=== PATIENT | female | born 1940 | race Caucasian/White ===

== ENCOUNTER 2021-10-10 12:17 | Outpatient (CLI) | payer MEDICARE, SELFPAY ==
--- NOTE | 2021-10-10 13:33 | SP.MBSS_ITS ---
Modified Barium Swallow - Patient Information Study Date: 10/10/21 Study Time: 12:30 Direct Billable Minutes: 70 Total Minutes procedure & reportin Diagnosis: Dysphagia, unspecified (R13.10) Referring Physician: Devonte Martinez V Reason for Referral: Objectively assess swallow function, risk for aspiration, and determine recommendations for least restrictive diet textures and compensatory strategies to improve safety of swallow. Medical History: The patient is an 81 year old female with PMH of TIA (1979) and asthma. She has had increased difficulty swallowing in the past two months since her asthma has worsened. She reports she occasionally coughs when swallowing drinks or dry foods. At times, she has coughed out food. Current Diet Ordered: Regular Textures / Thin Liquids Dentition: Natural Teeth, Missing Teeth Mental Status: WNL Respiratory Status: Oxygenating on Room Air - Penetration-Aspiration Scale Penetration-Aspiration Scale: OBJECTIVE ASSESSMENT OF SWALLOW FUNCTION (QUANTITATIVE ? PER TRIAL): PENETRATION / ASPIRATION SCALE (MARIANO): 1 = does not enter airway 2 = enters airway/above vocal folds/ejected 3 = enters airway/above vocal folds/not ejected 4 = enters airway/contacts vocal folds/ejected 5 = enters airway/contacts vocal folds/not ejected 6 = enters airway/below vocal folds/ejected 7 = enters airway/below vocal folds/not ejected despite effort 8 = enters airway/below vocal folds/no effort VIDEOFLOROSCOPIC SCALE SCORE (MARIANO): Grade I = aspiration of material that has penetrated into the laryngeal vestibule, intact cough reflex Grade II = aspiration < 10 % of the bolus, intact cough reflex Grade III = aspiration of < 10 % of the bolus, reduced cough reflex or aspiration of > 10 % of the bolus, intact cough reflex Grade IV = aspiration of > 10 % of the bolus, reduced cough reflex - Penetration-Aspiration Scale Score Thin Liquid via teaspoon Result: 1= does not enter airway Thin Liquid via teaspoon Trial 2 Result: 1= does not enter airway Thin Liquid via small single sip from cup Result: 1= does not enter airway Thin Liquid via sequential sips from cup Result: 2= enter airway/above vocal folds/ejected - Shallow, flash penetration. [place] Thick Liquid via small single sip from cup Result: 1= does not enter airway [place] Thick Liquid via small single sip from cup Result: 1= does not enter airway Pudding via tsp with esophageal screen Result: 1= does not enter airway Comment: Slow clearance of contrast from esophagus with retrograde flow below UES. 1/2 Cookie with esophageal screen Result: 1= does not enter airway Comment: Slow clearance of contrast from esophagus with some retention of contrast observed throughout the esophagus.. Thin Liquid via single sip from straw Result: 1= does not enter airway Thin Liquid via sequential sips from straw Result: 2= enter airway/above vocal folds/ejected - Shallow, flash penetration. - Oral Phase Labial Seal: No Labial Escape Tongue Control During Bolus Hold: Posterior escape of less than half of bolus Bolus Preparation/Mastication: Slow prolonged chewing/mashing with complete recollection Bolus Transport/Lingual Motion: Brisk tongue motion Oral Residue: Residue collection on oral structures - Pharyngeal Phase Initiation of Pharyngeal Swallow: Bolus head in pyriforms - With sequential sips Soft Palate Elevation: No bolus between soft palate and pharyngeal wall Laryngeal Elevation: Partial superior movement thyroid cart/partial apprx aryt- epig petiole Anterior Hyoid Excursion: Complete anterior movement Epiglottic Movement: Complete inversion Laryngeal Vestibule Closure at Height of Swallow: Incomplete; narrow column of air/contrast in laryngeal vestibule - Sequential sips Pharyngeal Stripping Wave: Present - complete Pharyngoesophageal Segment Opening: Complete distension and complete duration; n o obstruction of flow Tongue Base Retraction: Trace column of contrast between tongue base & post. pharyngeal wall Pharyngeal Residue: Collection of residue within or on pharyngeal structures - With sequential sips - Esophageal Phase Esophageal Clearance: Esophageal retention w/ retrograde flow below pharyngoe sophageal seg. - Treatment Strategies Effects of treatment strategies attemped:: N/A - Diagnosis/Impression Diagnosis: Swallow function grossly WNL Impression: The patient demonstrates overall normal swallow function. She has prolonged mastication, likely due to missing teeth; however, the patient adequately mashed cookie to safely swallow. She presents with mild oral and pharyngeal residues after the swallow, which she independently clears by initiating a second swallow. She has mildly decreased laryngeal elevation, but she demonstrates good anterior hyoid excursion and epiglottic inversion. Flash laryngeal penetration with full ejection from the laryngeal vestibule with sequential sips of liquids. No aspiration observed during the study. - Recommendations Diet: Regular Textures - Consider moistening dry foods with a sauce/gravy, Thin Liquids Compensatory Strategies: Small Bites, Small Sips, Slow Rate, Sitting upright, Remain sitting upright for 30 minutes after PO intake Recommend Repeat Modified Barium Swallow: No Need for Skilled Speech Therapy Services: No Recommended Referrals: GI Consult - Slowed esophageal clearance of contrast with retention and retrograde flow of bolus below UES observed. Education Completed: 1. Described result of evaluation. - Status Active ST Patient: Active - Contact Information [facility] Speech Therapy:: Mara Sharif M.A. [facility] [employer] Speech-Language Pathologist [facility] [address] [place] [address] [email or web address] [phone] 10/10/21 13:44
== END 2021-10-10 23:59 | disposition home or self-care (01) ==
PROVIDERS: PCP Family Medicine; Referring Provider Internal Medicine Pulmonary Disease; Visit Provider Internal Medicine Pulmonary Disease
DX: R13.10 Dysphagia, unspecified (principal)
CPT/HCPCS: 74230; 92611

== ENCOUNTER 2022-01-06 14:10 | Outpatient (RCR) | payer MEDICARE, SELFPAY | END 2022-01-06 14:11 | disposition home or self-care (01) | LOC: SP 14:10 | PROVIDERS: PCP Family Medicine; Referring Provider Internal Medicine Pulmonary Disease; Visit Provider Internal Medicine Pulmonary Disease | DX: R69 Illness, unspecified (principal) ==

== ENCOUNTER 2022-03-02 10:00 | Outpatient (RCR) | payer MEDICARE, SELFPAY ==
--- NOTE | 2021-10-24 17:14 | HP.SP.AD ---
History - History Date of Eval: 10/24/21 Previous speech therapy: Yes Results: MBSS completed on 10/10/21 -- See below Other Relevant Medical History/Diagnoses/Surgery: JACQUELIN QUINTERO is an 81 year old female presenting to [facility] for an initial voice evaluation. Pt reports her voice problem began around August 2021 following her appt with new sinter feeder, Dr. Devonte Martinez. Pt reports that Dr. Martinez first noticed the voice change from his initial appt with her. Pt reports Dr. Martinez performed a nasal endoscopy to view her vocal cords with unremarkable findings including no nodules. Pt was also reporting difficulty with her swallowing via having to expectorated foods and drinks occasionally. Pt participated in MBSS at [facility] which revealed Pt's least restrictive diet to remain regular solids and thin liquids with only flash penetration on sequential thin liquid drinks, which then fully ejected. Pt's voice problem worsening and is causing her pain. Smoking Status: Never smoker Hx Smoking: No Hx Smoking Exposure: Yes - 20 years; however hasn't been for 14 years - Pain Is pain an issue with your current prescribed condition?: Yes - Personal Occupation: Retired Right Hearing Abillity: Use of Hearing Aid Left Hearing Abillity: Use of Hearing Aid Visual Assistive Devices: Glasses Patients Living Arrangements: Alone Modified Barium Results Hx MBS Report Entered: Yes MBS Results (from prior exam): 10/24/21 17:13 Speech Therapy by Bianka Ortiz [facility] Speech Pathology [address] [place] [address] Modified Barium Swallow Study MR#: [id number] Acct: [id number] Name: YURI QUINTERO Rep #: [id number] : 1940 81 From: Mara Sharif M.A., [facility] [employer] Modified Barium Swallow - Patient Information Study Date: 10/10/21 Study Time: 12:30 Direct Billable Minutes: 70 Total Minutes procedure & reportin Diagnosis: Dysphagia, unspecified (R13.10) Referring Physician: Devonte Martinez V Reason for Referral: Objectively assess swallow function, risk for aspiration, and determine recommendations for least restrictive diet textures and compensatory strategies to improve safety of swallow. Medical History: The patient is an 81 year old female with PMH of TIA (1979) and asthma. She has had increased difficulty swallowing in the past two months since her asthma has worsened. She reports she occasionally coughs when swallowing drinks or dry foods. At times, she has coughed out food. Current Diet Ordered: Regular Textures / Thin Liquids Dentition: Natural Teeth, Missing Teeth Mental Status: WNL Respiratory Status: Oxygenating on Room Air - Penetration-Aspiration Scale Penetration-Aspiration Scale: OBJECTIVE ASSESSMENT OF SWALLOW FUNCTION (QUANTITATIVE ? PER TRIAL): PENETRATION / ASPIRATION SCALE (MARIANO): 1 = does not enter airway 2 = enters airway/above vocal folds/ejected 3 = enters airway/above vocal folds/not ejected 4 = enters airway/contacts vocal folds/ejected 5 = enters airway/contacts vocal folds/not ejected 6 = enters airway/below vocal folds/ejected 7 = enters airway/below vocal folds/not ejected despite effort 8 = enters airway/below vocal folds/no effort - Penetration-Aspiration Scale Score Thin Liquid via teaspoon Result: 1= does not enter airway Thin Liquid via teaspoon Trial 2 Result: 1= does not enter airway Thin Liquid via small single sip from cup Result: 1= does not enter airway Thin Liquid via sequential sips from cup Result: 2= enter airway/above vocal folds/ejected - Shallow, flash penetration. [place] Thick Liquid via small single sip from cup Result: 1= does not enter airway [place] Thick Liquid via small single sip from cup Result: 1= does not enter airway Pudding via tsp with esophageal screen Result: 1= does not enter airway Comment: Slow clearance of contrast from esophagus with retrograde flow below UES. 1/2 Cookie with esophageal screen Result: 1= does not enter airway Comment: Slow clearance of contrast from esophagus with some retention of contrast observed throughout the esophagus.. Thin Liquid via single sip from straw Result: 1= does not enter airway Thin Liquid via sequential sips from straw Result: 2= enter airway/above vocal folds/ejected - Shallow, flash penetration. - Oral Phase Labial Seal: No Labial Escape Tongue Control During Bolus Hold: Posterior escape of less than half of bolus Bolus Preparation/Mastication: Slow prolonged chewing/mashing with complete recollection Bolus Transport/Lingual Motion: Brisk tongue motion Oral Residue: Residue collection on oral structures - Pharyngeal Phase Initiation of Pharyngeal Swallow: Bolus head in pyriforms - With sequential sips Soft Palate Elevation: No bolus between soft palate and pharyngeal wall Laryngeal Elevation: Partial superior movement thyroid cart/partial apprx aryt-epig petiole Anterior Hyoid Excursion: Complete anterior movement Epiglottic Movement: Complete inversion Laryngeal Vestibule Closure at Height of Swallow: Incomplete; narrow column of air/contrast in laryngeal vestibule - Sequential sips Pharyngeal Stripping Wave: Present - complete Pharyngoesophageal Segment Opening: Complete distension and complete duration; no obstruction of flow Tongue Base Retraction: Trace column of contrast between tongue base & post. pharyngeal wall Pharyngeal Residue: Collection of residue within or on pharyngeal structures - With sequential sips - Esophageal Phase Esophageal Clearance: Esophageal retention w/ retrograde flow below pharyngoesophageal seg. - Treatment Strategies Effects of treatment strategies attemped:: N/A - Diagnosis/Impression Diagnosis: Swallow function grossly WNL Impression: The patient demonstrates overall normal swallow function. She has prolonged mastication, likely due to missing teeth; however, the patient adequately mashed cookie to safely swallow. She presents with mild oral and pharyngeal residues after the swallow, which she independently clears by initiating a second swallow. She has mildly decreased laryngeal elevation, but she demonstrates good anterior hyoid excursion and epiglottic inversion. Flash laryngeal penetration with full ejection from the laryngeal vestibule with sequential sips of liquids. No aspiration observed during the study. - Recommendations Diet: Regular Textures - Consider moistening dry foods with a sauce/gravy, Thin Liquids Compensatory Strategies: Small Bites, Small Sips, Slow Rate, Sitting upright, Remain sitting upright for 30 minutes after PO intake Recommend Repeat Modified Barium Swallow: No Need for Skilled Speech Therapy Services: No Recommended Referrals: GI Consult - Slowed esophageal clearance of contrast with retention and retrograde flow of bolus below UES observed. Education Completed: 1. Described result of evaluation. - Status Active ST Patient: Active - Contact Information [facility] Speech Therapy:: Mara Sharif M.A. [facility] Speech-Language Pathologist [facility] [address] [place] [address] [email or web address] [phone] 10/10/21 13:44 10/10/21 1349 <Electronically signed by Mara Sharif M.A., [facility]> Initialized on 10/24/21 17:13 - END OF NOTE Subjective Voice - Intubation Was the Client intubated: No - Intake Water (ounces): 64 Coffee (ounces): 8 Soda (ounces): 8 - Alcoholic Beverage Intake Intake: Never CAPE-V - CAPE-V CAPE-V Administered: Yes - Overall Severity Overall Severity (n/100): 90 Frequency: Consistent - Roughness Roughness (n/100): 62 Frequency: Consistent - Breathiness Breathiness (n/100): 91 Frequency: Consistent - Strain Strain (n/100): 80 Frequency: Consistent - Pitch Pitch (n/100): 66 Frequency: Consistent - Loudness Loudness (n/100): 89 Frequency: Consistent - Comments Purpose of CAPE-V -: The Consensus Auditory-Perceptual Evaluation of Voice (CAPE-V) was developed as a tool for clinical auditory-perceptual assessment of voice. Its primary purpose is to describe the subjective severity of auditory-perceptual attributes of a voice problem, in a way that can be communicated among clinicians. Its secondary purpose is to contribute to hypotheses regarding the anatomic and physiological bases of voice problems and to evaluate the need for additional testing. In terms of severity, Pt is considered MILD between 0-40, MODERATE 40-75, and SEVERE >75. Subjective Clinical Impression - Adult Clinical Impression Dysphonia: any 'abnormal' vocal quality suggesting an interruption of normal production: Present Breathiness: an audible excape of air or a 'weak' vocal tone suggestive of glottal insufficiency: Present Aphonia: lacking voice; no true vibratory voicing: Present Vocal fatigue: a 'tired' voice or feeling of excessive effort to phonate: Present Voice deterioration: reduction of volume or vocal quality with prolonged use: Present - Non-Phonatory Behaviors/Respiration Reduced loudness or vocal weakness: Present Limited breath support for speech: Present Stridor upon inhalation: noise or vibration heard upon inhalation: Present Expiratory wheezing: Present Objective Voice - Objective data Objective Data: Objective data: Sound pressure level (SPL acoustic correlation of vocal loudness) was measured with a sound level meter at a distance of 40 cm from the patient's mouth. Average conversational loudness is 70-80 dB and sustained phonation duration is 15 to 20 seconds for a typical adult. Sustained Phonatin duration (seconds): 3 Is the individual stimulable to increase vocal intensity: No - Observational Assessment Pitch Range in octaves: can move 1 octave in whisper tone Maximum Phonation Time in seconds: 2; in falsetto - Pt unable to phonate across multiple attempts S/Z Ratio: 2:2 Sustained /s/: 2 Sustained /z/: 0; Pt unable to phonate across multiple attempts Ratio: 2:0 Greater than 1:4 (indicates dysfunction): Yes Other Impressions - Comments Observations -: Pt appearing significantly fatigued while walking back to speech therapy room exhibiting inhalatory stridor with her breathing. Stridor continued for approximately 10 minutes into session. At the end of session, Pt reporting that she was very fatigued. Suspecting Pt's swallowing difficulties could be stemming from difficulty coordinating breathing and swallowing d/t Pt's severe asthma. Pt was tested for COPD and those results revealed severe asthma only. NO new changes with asthma medications except an increase in dosage. Pt reports no significant life or environmental factors that have changed in the past few months. Pt reports her voice problem is impacting her daily life with family members not being able to hear her on the phone or in person. Every day is different ? sometimes she has a voice in the mornings and other times it is hoarse. Pt reports the more she uses it the worse it gets. In a quiet environment to an unknown listener, Pt was approximately 80% intelligible with her speech/voice. Pt's voice in a falsetto tone throughout the majority of the session with intermittent voicing at the beginning of a sentence or if Pt 'sighed' into the word -- voicing lasted for only 2-3 phonemes and then Pt went back to falsetto. Plan - Plan Plan: Will recommend Pt for skilled outpatient speech therapy to address severe deficits in vocal function characterized by dysphonia, aphonia, vocal tension, and impaired volitional control of respiration. Pt would benefit from training in identifying instances of vocal abuse, providing vocal hygiene solutions, training in diaphragmatic breathing, and voice facilitation training. Without skilled speech therapy Pt is at risk for continued vocal abuse and feelings of isolation in a variety of social situations. Recommending Pt participate in nasal endoscopy at an ENT office to further objectively assess vocal function. - Recommendations Treatment Warranted: Yes - Frequency Frequency: 1x/Week Duration: 6 Weeks - Prognosis Prognosis: Good - Goals that are Established: Determination:: Goals will be added/modified as deemed necessary and appropriate. Therapy will be discontinued when results of re-evaluation indicate therapy is no longer needed or lack of progress has been documented. - Goal #1-5 Goal #1: Pt will participate in an ENT consult to objectively assess vocal function and determine appropriate course of voice exercises and compensatory strategies. Goal #2: Pt will establish volitional control of respiration evidenced by utilization of diaphragmatic breathing to sustain ah for 10-15 seconds within 4 weeks with 70% accuracy independently. Goal #3: Patient will establish volitional control of respiration evidenced by utilization of diaphragmatic breathing during structured tasks within 4 weeks with 100% accuracy independently. Education - Patient has Indicated that the Following Identified Educational Needs: None The Patient has indicated that they have no educational or learning abilities that may effect their care.: Yes - Patient Instruction Patient Education: Diagnosis, Treatment Plan, Goals Person Taught: Patient Teaching Method: Discussion Response to teaching: Return demonstration, Verbalize understanding
--- NOTE | 2022-05-15 16:01 | HP.SP.DC ---
ST Discharge Summary - Discharged: Discharge: YURI QUINTERO is an 81 year old female who was seen for initial voice evaluation at [facility] on 10/24/21 secondary to dx of suspected vocal cord dysfunction. 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 Pt being discharged from speech therapy caseload on this date, 05/15/22, after being on hold through the end of March while she was on vacation. Pt agreed to making additional appts upon her return from vacation should she have cont'd difficulty. Pt has not reached out to schedule additional appts. Pt making significant gains during her participation with the above listed goals. Thank you for allowing me to participate the care of your Pt. Will reevaluate at Pt?s request following script from physician.
== END 2022-03-02 19:00 | disposition home or self-care (01) ==
LOC: SP 10:00
PROVIDERS: PCP Family Medicine; Referring Provider Internal Medicine Pulmonary Disease; Visit Provider Internal Medicine Pulmonary Disease
DX: R49.0 Dysphonia (principal)
CPT/HCPCS: 92507; 92524

== ENCOUNTER 2024-07-17 19:27 | Inpatient (IN) | payer MEDICARE, SELFPAY ==
[2024-07-17] VITALS (7 sets, daily range): BP systolic 133–150; BP diastolic 65–121; PULSE 57–94; RESP 12–31; TEMP 36.5–36.8; O2SAT 91–100; BMI 30.4; BMI 35.3
--- NOTE | 2024-07-17 19:40 | RAD_ITS ---
INDICATION: cough EXAMINATION/TECHNIQUE: X-RAY - XR Chest 2 Views COMPARISON: FINDINGS: LINES/DEVICES: None. LUNGS: No consolidation, edema or effusion. No pneumothorax. MEDIASTINUM AND CARDIOVASCULAR STRUCTURES: Cardiac silhouette not enlarged. Central airways and mediastinal contour are unremarkable. BONES AND SOFT TISSUES: Degenerative vertebral changes. RAD/Chest PA and Lateral IMPRESSION: No radiographic evidence of acute cardiopulmonary disease. Electronically Signed: Norris Gutierrez DO at 22:09 EST ,
--- NOTE | 2024-07-17 19:42 | ED.VIS.DYS ---
HPI <RAYMUNDO Quinonez - Last Filed: 07/17/24 22:04> History of Present Illness Chief Complaint: Shortness of Breath Narrative Narrative: Patient presenting today with a nonproductive cough and shortness of breath that started today. She lives with her vzttuv-[id number]-ypq who tested positive for influenza today and has had similar symptoms. She denies fevers, chills, chest pain, abdominal pain, nausea, and vomiting. He has a PMH of asthma and dementia, she denies wheezing. PFS <RAYMUNDO Quinonez - Last Filed: 07/17/24 22:04> [facility] Medical History (Updated 07/17/24 @ 22:[address] Urbano Mir, DO) Osteoporosis Non-smoker BiPAP (biphasic positive airway pressure) dependence COPD (chronic obstructive pulmonary disease) Asthma TIA (transient ischemic attack) Home Medications ?Medication ?Instructions ?Recorded ?Last Taken ?Type albuterol sulfate 90 mcg/actuation 2 puff inhalation .qid PRN wheezing 07/17/24 Unknown History aerosol inhaler ezetimibe 10 mg tablet 10 mg PO DAILY 07/17/24 Unknown History furosemide 20 mg tablet 20 mg PO DAILY PRN edema 07/17/24 Unknown History ipratropium 0.5 mg-albuterol 3 mg ml inhalation 07/17/24 Unknown History (2.5 mg base)/3 mL nebulization soln nitroglycerin 0.2 mg/hr patch transdermal 07/17/24 Unknown History transdermal 24 hour patch rosuvastatin 5 mg tablet 5 mg PO DAILY 07/17/24 Unknown History triamterene 37.5 1 cap PO DAILY 07/17/24 Unknown History mg-hydrochlorothiazide 25 mg capsule Allergy/AdvReac Type Severity Reaction Status Date / Time aspirin Allergy Unknown PT UNSURE Verified 07/17/24 19:32 OF REACTION cefaclor Allergy PT UNSURE Verified 07/17/24 19:32 OF REACTION chlorzoxazone Allergy PT UNSURE Verified 07/17/24 19:32 OF REACTION codeine Allergy PT UNSURE Verified 07/17/24 19:32 OF REACTION erythromycin base Allergy PT UNSURE Verified 07/17/24 19:32 OF REACTION guanfacine Allergy PT UNSURE Verified 07/17/24 19:32 OF REACTION naproxen Allergy PT UNSURE Verified 07/17/24 19:32 OF REACTION orphenadrine Allergy PT UNSURE Verified 07/17/24 19:32 OF REACTION oxytetracycline Allergy PT UNSURE Verified 07/17/24 19:32 OF REACTION Penicillins Allergy PT UNSURE Verified 07/17/24 19:32 OF REACTION piroxicam Allergy PT UNSURE Verified 07/17/24 19:32 OF REACTION Sulfa (Sulfonamide Allergy PT UNSURE Verified 07/17/24 19:32 Antibiotics) OF REACTION testosterone Allergy PT UNSURE Verified 07/17/24 19:32 OF REACTION Social History Smoking Status: Never smoker ROS <RAYMUNDO Quinonez - Last Filed: 07/17/24 22:04> ROS ED Constitutional Constitutional ED: Denies chills or fever(s) Cardiovascular Cardiovascular: Denies chest pain Respiratory/Chest Respiratory/Chest: Reports cough, dyspnea and dyspnea on exertion; Denies tachypnea or wheezing Gastrointestinal Gastrointestinal: Denies abdominal pain, nausea or vomiting Musculoskeletal Musculoskeletal: Denies arthralgias or myalgias Integumentary Denies rash Neurologic Neurologic: Denies weakness EXAM <RAYMUNDO Quinonez - Last Filed: 07/17/24 22:04> Physical Exam Const Vital Signs: 07/17/24 19:33 07/17/24 19:33 07/17/24 19:48 Temperature 98.2 F Temperature Source Oral Pulse Rate 86 94 86 Respiratory Rate 26 H 26 H 20 H Respiratory Effort Respiratory Depth Respiratory Pattern Blood Pressure 137/121 H 150/66 H Blood Pressure Mean 126 94 Pulse Ox 91 93 Oxygen Delivery Method Room Air Room Air Oxygen Flow Rate (L/min) 07/17/24 20:01 07/17/24 21:27 07/17/24 21:43 Temperature 98.1 F 98.1 F Temperature Source Oral Pulse Rate 89 87 Respiratory Rate 24 H 28 H Respiratory Effort Non-Labored Short of Breath Respiratory Depth Normal Respiratory Pattern Normal Blood Pressure 145/83 H 145/83 H Blood Pressure Mean 103 103 Pulse Ox 98 99 Oxygen Delivery Method Room Air Nasal Cannula Oxygen Flow Rate (L/min) 2 Positive well nourished, well developed and no apparent distress General Appearance ED: well developed HEENT Reports normocephalic and head/scalp atraumatic Mouth ED: Yes moist mucous membranes normal Eyes PERRL and EOMs intact bilaterally Neck full ROM and supple Chest Wall inspection of chest normal Resp normal respiratory effort Resp Narrative: Coarse breath sounds to the bilateral lower lungs Cardio regular rate and regular rhythm GI soft to palpation, non-tender, non-distended and no masses Back/Spine normal ROM and normal to inspection Extremity normal to inspection and full ROM Neuro oriented x3, CN's II-XII intact bilaterally, moves all extremities, no focal motor deficits and no sensory deficits noted Sensorium / Orientation: awake and alert Psych mental status grossly normal and thought process normal Skin no rashes or lesions noted and no wounds <Dr. Urbano Mir DO - Last Filed: 07/17/24 22:52> Physical Exam Const Vital Signs: 07/17/24 19:33 07/17/24 19:33 07/17/24 19:48 Temperature 98.2 F Temperature Source Oral Pulse Rate 86 94 86 Respiratory Rate 26 H 26 H 20 H Respiratory Effort Respiratory Depth Respiratory Pattern Blood Pressure 137/121 H 150/66 H Blood Pressure Mean 126 94 Pulse Ox 91 93 Oxygen Delivery Method Room Air Room Air Oxygen Flow Rate (L/min) 07/17/24 20:01 07/17/24 21:27 07/17/24 21:43 Temperature 98.1 F 98.1 F Temperature Source Oral Pulse Rate 89 87 Respiratory Rate 24 H 28 H Respiratory Effort Non-Labored Short of Breath Respiratory Depth Normal Respiratory Pattern Normal Blood Pressure 145/83 H 145/83 H Blood Pressure Mean 103 103 Pulse Ox 98 99 Oxygen Delivery Method Room Air Nasal Cannula Oxygen Flow Rate (L/min) 2 [facility] <RAYMUNDO Quinonez - Last Filed: 07/17/24 22:04> [facility] Narrative Medical decision making narrative: Patient presenting today with a nonproductive cough that started today. Her goknlm-ep-bil who she lives with tested positive for influenza today. Patient is nontoxic-appearing, she is afebrile. O2 saturation is around 92% on room air. Chest x-ray will be obtained. We will test her for COVID/influenza/RSV and if she is influenza positive discuss starting her on Tamiflu. She did test positive for influenza A, she was ambulated by the nurse and did desaturate to 85% on room air and became lightheaded and almost fell, the nurse had to assist her back to the bed and placed her on supplemental O2. Given her hypoxia and shortness of breath, I do feel she would benefit from admission to the hospital. I will speak with the hospitalist. She was given a dose of Tamiflu. Lab Data Attestation: I reviewed the patient's lab results. Lab results narrative: WBC 13.4, creatinine 1.26 Labs: Laboratory Results - last 24 hr 07/17/24 19:35 WBC 13.4 H RBC 5.33 Hgb 15.1 H Hct 47.7 H MCV 89.5 MCH 28.3 MCHC 31.7 L RDW Std Deviation 43.3 RDW Coeff of Jaz 13.2 Plt Count 307 MPV 10.8 Immature Gran % (Auto) 0.500 Neut % (Auto) 78.8 H Lymph % (Auto) 10.4 L [place] % (Auto) 7.6 Eos % (Auto) 2.1 Baso % (Auto) 0.6 Absolute Neuts (auto) 10.5 H Absolute Lymphs (auto) 1.39 Nucleated RBC % 0 Sodium 141 Potassium 3.5 Chloride 104 Carbon Dioxide 29.0 Anion Gap 8 BUN 17 Creatinine 1.26 H Estim Creat Clear Calc 29.68 Est GFR (MDRD) Af Amer 52 L Est GFR (MDRD) Non-Af 43 L BUN/Creatinine Ratio 13.5 Glucose 121 H Calcium 10.7 H Radiography Diagnostic Testing: Clinical Impression(s) from Imaging Studies Chest X-Ray 07/17/24 19:40 IMPRESSION: No radiographic evidence of acute cardiopulmonary disease. Electronically Signed: Norris Gutierrez DO at 22:09 EST Reading Location ID and State: [address] [place] [address] Tel [phone], Service support , <Dr. Urbano Mir DO - Last Filed: 07/17/24 22:52> [facility] Narrative Medical decision making narrative: Patient presenting today with a nonproductive cough that started today. Her obxcdt-bc-tdy who she lives with tested positive for influenza today. Patient is nontoxic-appearing, she is afebrile. O2 saturation is around 92% on room air. Chest x-ray will be obtained. We will test her for COVID/influenza/RSV and if she is influenza positive discuss starting her on Tamiflu. She did test positive for influenza A, she was ambulated by the nurse and did desaturate to 85% on room air and became lightheaded and almost fell, the nurse had to assist her back to the bed and placed her on supplemental O2. Given her hypoxia and shortness of breath, I do feel she would benefit from admission to the hospital. I will speak with the hospitalist. She was given a dose of Tamiflu. Attending note: I have personally performed a face to face assessment of the patient and have reviewed the ANGELICA note. I personally made/approved the management plan and take responsibility for the patient management. I performed a substantive portion of the visit including all aspects of the following. My aguilar findings include: History dementia asthma here with brother and [id number]. She stays with them. Increasing dyspnea myalgias today. Zwidfi-gm-dws diagnosed with influenza yesterday. Denies fevers. Exam alert and orient x 3 nontoxic. Lungs were normal heart was regular. Pulse ox on arrival was 91 percent on room air. Evaluate after aerosol treatments she clinically states she is improving she was empirically placed on 2 L nasal cannula by nursing reported hypoxia when asleep at 88%. Chest x-ray 2 views interpreted by myself and read by radiology, Negative. flu a positive. With ambulation on room air she dropped to 85% nearly passed out due to dyspnea. She placed back in bed. Labs are drawn GFR returned at 43 white count 13.4. She is covered with Tamiflu 30 mg secondary to her GFR. Discussed with hospitalist Dr. Lock for admission. Lab Data Labs: Laboratory Results - last 24 hr 07/17/24 19:35 WBC 13.4 H RBC 5.33 Hgb 15.1 H Hct 47.7 H MCV 89.5 MCH 28.3 MCHC 31.7 L RDW Std Deviation 43.3 RDW Coeff of Jaz 13.2 Plt Count 307 MPV 10.8 Immature Gran % (Auto) 0.500 Neut % (Auto) 78.8 H Lymph % (Auto) 10.4 L [place] % (Auto) 7.6 Eos % (Auto) 2.1 Baso % (Auto) 0.6 Absolute Neuts (auto) 10.5 H Absolute Lymphs (auto) 1.39 Nucleated RBC % 0 Sodium 141 Potassium 3.5 Chloride 104 Carbon Dioxide 29.0 Anion Gap 8 BUN 17 Creatinine 1.26 H Estim Creat Clear Calc 29.68 Est GFR (MDRD) Af Amer 52 L Est GFR (MDRD) Non-Af 43 L BUN/Creatinine Ratio 13.5 Glucose 121 H Calcium 10.7 H Radiography Diagnostic Testing: Clinical Impression(s) from Imaging Studies Chest X-Ray 07/17/24 19:40 IMPRESSION: No radiographic evidence of acute cardiopulmonary disease. Electronically Signed: Norris Gutierrez DO at 22:09 EST Reading Location ID and State: [facility] / [place] Tel [phone], Service support , Discharge Plan Dx/Rx/DC Orders Clinical Impression: Influenza A, Hypoxia, Dementia, History of asthma Disposition Disposition: Acute Care Hospital [facility]
[2024-07-17] MEDS: Ipratropium/Albuterol Sulfate 3 ML AMPUL.NEB INHALATION (19:46)
[2024-07-17] MEDS: Albuterol 2.5 MG/3 ML VIAL.NEB. INHALATION (19:46)
--- NOTE | 2024-07-17 21:33 | ED.RN ---
pt ambulated on ra, did ok then all of a sudden got dizzy sob , her pox dropped to 85% and doesnt remember how we got her into bed.
[2024-07-17 21:37] LABS: Absolute Lymphocyte Count 1.39 X10^3/uL (0.83-4.51); Absolute Neutrophil Count 10.5 X10^3/uL (2.0-7.7); Basophil# 0.08 X10^3/uL; Basophil% 0.6 % (0-1); Eosinophil# 0.28 X10^3/uL; Eosinophils% 2.1 % (0-5); Hematocrit 47.7 % (37-47); Hemoglobin 15.1 g/dL (12.0-15.0); Lymphocyte # 1.39 X10^3/ul (0.83-4.51); Lymphocyte % 10.4 % (19-41); Mean Corp Hgb Conc 31.7 g/dL (32-36); Mean Corpuscular Hgb 28.3 pg (27.0-32.0); Mean Corpuscular Volume 89.5 fL (81-99); Mean Platelet Vol. 10.8 fl (6.2-12.0); Monocyte# 1.01 X10^3/uL; Monocyte% 7.6 % (0-10); NRBC Flagged by Analyzer 0 % (0-5); Neutrophil # 10.53 X10^3/uL (2.7-7.7); Neutrophil % 78.8 % (47-70); Platelet Count 307 K/mm3 (150-450); RBC Distribution Width CV 13.2 % (11.6-14.6); RBC Distribution Width SD 43.3 fl (35.1-43.9); Red Blood Count 5.33 M/mm3 (4.2-5.4); White Blood Count 13.4 K/mm3 (4.4-11.0)
[2024-07-17 21:49] LABS: Anion Gap 8 (5-15); BUN 17 mg/dL (7-18); BUN/Creat Ratio 13.5 RATIO (10-20); Calcium,Total 10.7 mg/dL (8.5-10.1); Chloride 104 mmol/L (98-107); Creatinine, Serum 1.26 mg/dL (0.55-1.02); EST Glomerular Filtration Rate 43 mL/min (>60); Est Glom Filt Rate - Afr Amer 52 mL/min (>60); Estimated Creatinine Clearance 29.68 ml/min; Glucose 121 mg/dL (74-106); Potassium 3.5 mmol/L (3.5-5.1); Sodium Level 141 mmol/L (136-145)
--- NOTE | 2024-07-17 22:05 | PCM.HP.STD ---
[facility] - General General Date of Admission: 07/17/24 Date of Service: 07/17/24 Chief Complaint: SOB, Cough and Malaise. [facility] Narrative YURI QUINTERO, is a 83 F with a past medical history of essential hypertension; on triamterene-HCTZ, hyperlipidemia; on ezetimibe and rosuvastatin, obesity; with BMI of 35.3 this admission, SHIRA; on BiPAP, history of asthma/COPD without history of tobacco abuse; on prn ipratropium-albuterol nebulizers, history of TIA, history of Alzheimer's dementia; apparently mild with no current pharmacologic treatment, osteoporosis, OA; with fall ~2 months ago onto Left hip with persistent pain since that time and numerous questionable listed allergies who presents to [facility] ER complaining of SOB, cough and malaise. Ms. Quintero reports her symptoms began earlier today with a nonproductive cough and SOB with malaise. She lives with her cjgslo-js-ylj who tested positive for influenza earlier today with a similar viral-type illness. She denies associated fever, chills, nausea, vomiting, diarrhea, constipation or chest pain. In the ER her viral assay was positive for Influenza A complicated by clinical evidence of mild AE COPD and Acute Respiratory Insufficiency with patient dropping her oxygen saturations to ~86% while ambulating and having a Near Syncopal event and she was then admitted to the general medical floor for ongoing care for a stay that is expected to extend beyond 2 midnights. [facility] Medical History Alzheimer dementia Osteoporosis Non-smoker BiPAP (biphasic positive airway pressure) dependence COPD (chronic obstructive pulmonary disease) Asthma TIA (transient ischemic attack) Home Medications ?Medication ?Instructions ?Recorded ?Last Taken ?Type albuterol sulfate 90 mcg/actuation 2 puff inhalation .qid PRN wheezing 07/17/24 Unknown History aerosol inhaler ezetimibe 10 mg tablet 10 mg PO DAILY 07/17/24 Unknown History furosemide 20 mg tablet 20 mg PO DAILY PRN edema 07/17/24 Unknown History ipratropium 0.5 mg-albuterol 3 mg ml inhalation 07/17/24 Unknown History (2.5 mg base)/3 mL nebulization soln nitroglycerin 0.2 mg/hr patch transdermal 07/17/24 Unknown History transdermal 24 hour patch rosuvastatin 5 mg tablet 5 mg PO DAILY 07/17/24 Unknown History triamterene 37.5 1 cap PO DAILY 07/17/24 Unknown History mg-hydrochlorothiazide 25 mg capsule Allergy/AdvReac Type Severity Reaction Status Date / Time aspirin Allergy Unknown PT UNSURE Verified 07/17/24 19:32 OF REACTION cefaclor Allergy PT UNSURE Verified 07/17/24 19:32 OF REACTION chlorzoxazone Allergy PT UNSURE Verified 07/17/24 19:32 OF REACTION codeine Allergy PT UNSURE Verified 07/17/24 19:32 OF REACTION erythromycin base Allergy PT UNSURE Verified 07/17/24 19:32 OF REACTION guanfacine Allergy PT UNSURE Verified 07/17/24 19:32 OF REACTION naproxen Allergy PT UNSURE Verified 07/17/24 19:32 OF REACTION orphenadrine Allergy PT UNSURE Verified 07/17/24 19:32 OF REACTION oxytetracycline Allergy PT UNSURE Verified 07/17/24 19:32 OF REACTION Penicillins Allergy PT UNSURE Verified 07/17/24 19:32 OF REACTION piroxicam Allergy PT UNSURE Verified 07/17/24 19:32 OF REACTION Sulfa (Sulfonamide Allergy PT UNSURE Verified 07/17/24 19:32 Antibiotics) OF REACTION testosterone Allergy PT UNSURE Verified 07/17/24 19:32 OF REACTION Social History Smoking Status: Never smoker ROS ROS Narrative Review of Systems: Constitutional: Patient denies fever or chills. Eyes: Patient denies visual changes or discharge from eyes. ENT: Patient admits to runny nose but she denies sore throat or ear pain. Resp: Patient admits to SOB made worse with activity and nonproductive cough. CV: Patient had a near syncopal event in the ER after attempting to ambulate without supplemental oxygen. GI: Patient denies abdominal pain, nausea, vomiting, diarrhea or constipation. : Patient denies dysuria or hematuria. MSK: Patient admits to persistent pain in Left hip since a fall ~2 months ago as per HPI. Skin: Patient denies rash, abscess or jaundice. Psych: Patient is notably anxious due to SOB and pain in Left hip but she denies SI or HI. Neuro: Patient admits to moderate tension-type headache but she denies paresthesias or focal neurologic deficits. Allergy: Patient denies lip swelling, tongue swelling or urticaria. Hematology: Patient denies easy bleeding or easy bruisability. Endocrinology: Patient denies polyuria, polydipsia and polyphagia. 14 point ROS otherwise negative except for positives noted above in HPI. Vital Signs Vital Signs Vital Signs: 07/17/24 19:33 07/17/24 19:33 07/17/24 19:48 Temperature 98.2 F Temperature Source Oral Pulse Rate 86 94 86 Respiratory Rate 26 H 26 H 20 H Respiratory Effort Respiratory Depth Respiratory Pattern Blood Pressure 137/121 H 150/66 H Blood Pressure Mean 126 94 Pulse Ox 91 93 Oxygen Delivery Method Room Air Room Air Oxygen Flow Rate (L/min) 07/17/24 20:01 07/17/24 21:27 07/17/24 21:43 Temperature 98.1 F 98.1 F Temperature Source Oral Pulse Rate 89 87 Respiratory Rate 24 H 28 H Respiratory Effort Non-Labored Short of Breath Respiratory Depth Normal Respiratory Pattern Normal Blood Pressure 145/83 H 145/83 H Blood Pressure Mean 103 103 Pulse Ox 98 99 Oxygen Delivery Method Room Air Nasal Cannula Oxygen Flow Rate (L/min) 2 Weight Weight: 150 lb 9.211 oz Body Mass Index (BMI) 30.4 Physical Exam Const alert and oriented x3 Constitutional Narrative: Mild distress noted with obesity. Results Lab / Micro Data 07/17/24 19:35 07/17/24 19:35 Labs: Laboratory Results - last 24 hr 07/17/24 19:35: WBC 13.4 H, RBC 5.33, Hgb 15.1 H, Hct 47.7 H, MCV 89.5, MCH 28.3, MCHC 31.7 L, RDW Std Deviation 43.3, RDW Coeff of Jaz 13.2, Plt Count 307, MPV 10.8, Immature Gran % (Auto) 0.500, Neut % (Auto) 78.8 H, Lymph % (Auto) 10.4 L, [place] % (Auto) 7.6, Eos % (Auto) 2.1, Baso % (Auto) 0.6, Absolute Neuts (auto) 10.5 H, Absolute Lymphs (auto) 1.39, Nucleated RBC % 0, Sodium 141, Potassium 3.5, Chloride 104, Carbon Dioxide 29.0, Anion Gap 8, BUN 17, Creatinine 1.26 H, Estim Creat Clear Calc 29.68, Est GFR (MDRD) Af Amer 52 L, Est GFR (MDRD) Non-Af 43 L, BUN/Creatinine Ratio 13.5, Glucose 121 H, Calcium 10.7 H Micro: Microbiology 07/17/24 19:43 Mucosa - Nose SARS-CoV-2, Influenza & RSV (PCR) - Final Influenzae A Assessment & Plan Assessment/Plan (1) Influenza A: (2) Respiratory insufficiency: (3) Acute asthma exacerbation: QUALIFIERS: Asthma persistence: unspecified Asthma severity: unspecified severity Qualified Code(s): J45.901 - Unspecified asthma with (acute) exacerbation (4) Near syncope: (5) Obesity (BMI 30.0-34.9): (6) SHIRA (obstructive sleep apnea): (7) Chronic left hip pain: PLAN: Plan 1. Influenza A - Admit to general medical floor under droplet and contact precautions. Give vitamin D3, vitamin C and zinc to help boost immunity and hopefully speed recovery. Give Tylenol prn for strb-kt-wlscgejt (level 1-5/10) pain or fever. Give [place] prn for severe (level 6-10/10) pain. 2. Mild AE asthma/COPD complicating #1 - Start Solumedrol 40 mg IV BID with prn nebulizers. Wean steroids as tolerated. 3. Acute Respiratory Insufficiency arising from #1 & #2 - Wean supplemental oxygen as tolerated. 4. Near Syncope event while trying to ambulate in ER without supplemental oxygen compounding #1 - #3 - Likely due to hypoxia but we will check echocardiogram to evaluate LVEF. 5. Obesity; with BMI of 35.3 this admission and SHIRA; on BiPAP adding to the medical complexity of #1 - #4 - Weight loss will be recommended. Check TSH. Reinitiate nocturnal BiPAP as previous. 6. Chronic Left Hip Pain after Fall ~2 months ago in the setting of known OA and osteoporosis adding to the burden of disease outlined from #1 - #5 - Check 2-view X-rays of Left hip to evaluate for evidence of possible fracture. Finally, we will consult PT/OT and Case Management to consult and treat on-rounds in the AM for further recommendations with help appreciated in advance. 7. History of Alzheimer's dementia; apparently mild with no current pharmacologic treatment - Stable. Check TSH, B12 and folate to evaluate for potential reversible causes of confusion. 8. Essential hypertension; on triamterene-HCTZ - Resume current treatment and give prn IV Hydralazine for systolic blood pressure > 160 mmHg. 9. Hyperlipidemia; on ezetimibe and rosuvastatin - Maintain home regimen. 10. History of TIA - Noted. 11. DVT prophylaxis - Lovenox 40 mg sq daily plus SCD's. Total time: Approximately (but not less than) 75 minutes. Charges/Coding Visit Charges Inpatient E&M: 75547 Init Hosp L3
--- NOTE | 2024-07-17 22:36 | ECHOCS_ITS ---
Reason For Study: SYNCOPE Procedure This was a 2D Doppler, Color Flow transthoracic echocardiogram. The study was technically difficult. Contrast injection was performed. Exam performed portable in patient room. Left Ventricle Normal LV size. Left ventricular systolic function is normal. The left ventricular ejection fraction is 70 %. No regional wall motion abnormalities noted. Right Ventricle Normal RV size. Normal systolic function. Atria Normal left atrium. Normal right atrium. Mitral Valve Normal mitral valve. Tricuspid Valve Normal tricuspid valve. Mild (1+) tricuspid valve insufficiency. Right ventricular systolic pressure estimated to be 37 mmHg. Aortic Valve The aortic valve is not well visualized. Pulmonic Valve The pulmonic valve is not well visualized. Great Vessels Normal aortic root. The pulmonary artery is normal size. Normal inferior vena cava. Pericardium/Pleural No pericardial effusion. Medication Diluted definity 2ml given slow IV push to enhance endocardial definition. MMode/2D Measurements & Calculations LVIDd: 3.9 cm IVSd: 1.4 cm LVOT diam: 1.9 cm LVIDs: 2.3 cm LVPWd: 0.96 cm RVDd: 3.4 cm FS: 39.3 % LVOT area: 2.8 cm2 asc Aorta Diam: 3.1 cm LAV(MOD-bp): 24.6 ml LVAd ap4: 23.0 cm2 LAV(MOD-bp) Indexed: 14.3 ml/m2 LVLd ap4: 6.8 cm LAV(MOD-sp2): 25.9 ml EDV(MOD-sp4): 61.4 ml LAV(MOD-sp4): 22.5 ml EDV(sp4-el): 65.9 ml LVAs ap4: 14.3 cm2 LVLs ap4: 5.7 cm ESV(MOD-sp4): 29.3 ml ESV(sp4-el): 30.8 ml EF(MOD-sp4): 52.3 % EF(sp4-el): 53.3 % LVAd ap2: 28.8 cm2 SV(MOD-sp4): 32.1 ml SV(MOD-sp2): 55.4 ml LVLd ap2: 7.3 cm SI(MOD-sp4): 18.7 ml/m2 SI(MOD-sp2): 32.3 ml/m2 EDV(MOD-sp2): 91.7 ml EDV(sp2-el): 96.2 ml LVAs ap2: 16.0 cm2 LVLs ap2: 6.0 cm ESV(MOD-sp2): 36.3 ml ESV(sp2-el): 36.5 ml EF(MOD-sp2): 60.4 % SV(sp4-el): 35.1 ml Ao sinus diam: 3.[address] J[place]: 2.2 cm LA dimension(2D): 3.5 cm LA A4 area: 10.8 cm2 RA A4 area: 12.1 cm2 TAPSE: 1.5 cm Time Measurements MV dec time: 0.27 sec Doppler Measurements & Calculations MV E max andres: 56.7 cm/sec Lat Peak E' Andres: 7.8 cm/sec Med Peak E' Andres: 8.5 cm/sec MV A max andres: 105.2 cm/sec E/E' lat: 7.2 E/E' med: 6.7 MV E/A: 0.54 MV dec slope: 212.9 cm/sec2 Ao V2 max: 131.6 cm/sec LV V1 max: 109.2 cm/sec Ao max P.9 mmHg LV V1 max P.8 mmHg Ao V2 mean: 101.3 cm/sec LV V1 mean P.0 mmHg Ao mean P.3 mmHg LV V1 mean: 82.9 cm/sec Ao V2 VTI: 19.4 cm LV V1 VTI: 18.2 cm AV (velocity ratio): 0.94 LIN(I,D): 2.6 cm2 LIN(V,D): 2.3 cm2 SV(LVOT): 50.3 ml PA V2 max: 103.7 cm/sec TR max andres: 292.9 cm/sec TR max P.3 mmHg ECHO/Echo Complete W/ Contrast Interpretation Summary Normal LV size. Left ventricular systolic function is normal. The left ventricular ejection fraction is 70 %. Contrast injection was performed. Ordering Physician: Niall Leong Referring Physician: Urbano Mir Performed By: Christine Emerson RDCS
[2024-07-17] MEDS: Oseltamivir Phosphate 30 MG Capsule PO (22:59)
[2024-07-17 23:12] LABS: Allen Test Positive; Base Excess 1 mmol/L (-2 to +2); Bicarbonate 24.9 mmol/L (22-26); Blood Gas Specimen Type ART; Mode Not entered; O2 Delivery Device Cannula; PO2 131 mmHG (75-100); SITE L Radial; SO2 99 % (95-99); Total Carbon Dioxide 26 mmol/L; pCO2 38.1 mmHg (35-45); pH 7.42 (7.35-7.45)
[2024-07-17] MEDS: 0.9% Normal Saline (1000mL) 1,000 ML 70 ML IV (23:35)
[2024-07-18] VITALS (11 sets, daily range): BP systolic 124–154; BP diastolic 59–77; PULSE 70–89; RESP 16–20; TEMP 36.5–36.7; O2SAT 93–98; BMI 35.4
--- NOTE | 2024-07-18 01:12 | RAD_ITS ---
INDICATION: PAIN EXAMINATION/TECHNIQUE: X-RAY - XR Hip Unilateral with Pelvis when performed; 2-3 Views COMPARISON: No relevant prior comparison study available FINDINGS: PELVIC BONES: No displaced fracture, destructive or sclerotic lesions. Note that overlapping bowel shadows may however obscure fine detail. Sacroiliac joints are unremarkable. No widening of the pubic symphysis. Degenerative changes in the lower lumbar spine. HIPS: The articular structures are unremarkable. No displaced fracture seen in this frontal view. SOFT TISSUES: No soft tissue swelling or gas. RAD/HIP, UNI W/ Pelvis 2-3 Views IMPRESSION: No evidence of displaced pelvic or hip fracture. Electronically Signed: Dallas Benavidez MD at 10:05 EST ,
[2024-07-18] MEDS: HYDROcodone Bitartrate/Apap 5/325 Tablet PO (01:19)
[2024-07-18] MEDS: MELATONIN 3 MG TABLET PO ×2 (01:19→20:51)
[2024-07-18] MEDS: Meclizine 12.5 MG Tablet PO (01:55)
[2024-07-18] MEDS: guaiFENesin 10 ML UDC (200MG/10ML) 20 ML PO ×3 (02:02→20:50)
[2024-07-18 04:03] LABS: Absolute Lymphocyte Count 1.48 X10^3/uL (0.83-4.51); Absolute Neutrophil Count 10.2 X10^3/uL (2.0-7.7); Basophil# 0.07 X10^3/uL; Basophil% 0.5 % (0-1); Eosinophils% 2.3 % (0-5); Hematocrit 41.3 % (37-47); Hemoglobin 13.2 g/dL (12.0-15.0); Lymphocyte # 1.48 X10^3/ul (0.83-4.51); Lymphocyte % 11.4 % (19-41); Mean Corpuscular Hgb 28.1 pg (27.0-32.0); Mean Corpuscular Volume 88.1 fL (81-99); Mean Platelet Vol. 10.2 fl (6.2-12.0); Monocyte# 0.98 X10^3/uL; Monocyte% 7.5 % (0-10); NRBC Flagged by Analyzer 0 % (0-5); Neutrophil # 10.16 X10^3/uL (2.7-7.7); Platelet Count 244 K/mm3 (150-450); RBC Distribution Width CV 13.2 % (11.6-14.6); RBC Distribution Width SD 42.7 fl (35.1-43.9); Red Blood Count 4.69 M/mm3 (4.2-5.4)
[2024-07-18 04:28] LABS: ALB/GLOB Ratio 0.8 RATIO (0.9-2.4); AST(SGOT) 17 U/L (15-37); Alanine Aminotransfer ALT/SGPT 17 U/L (13-56); Albumin, Serum 2.8 g/dL (3.2-5.0); Alkaline Phosphatase 102 U/L (45-117); Anion Gap 5 (5-15); BUN 20 mg/dL (7-18); BUN/Creat Ratio 24.3 RATIO (10-20); Chloride 106 mmol/L (98-107); Creatinine, Serum 0.82 mg/dL (0.55-1.02); EST Glomerular Filtration Rate 71 mL/min (>60); Est Glom Filt Rate - Afr Amer 85 mL/min (>60); Estimated Creatinine Clearance 48.41 ml/min; Globulin 3.3 g/dL (2.2-4.2); Glucose 109 mg/dL (74-106); Magnesium 2.1 mg/dL (1.6-2.6); Phosphorus 3.1 mg/dL (2.5-4.9); Potassium 3.4 mmol/L (3.5-5.1); Protein, Total 6.1 g/dL (6.4-8.2); Sodium Level 139 mmol/L (136-145)
[2024-07-18] MEDS: Ipratropium/Albuterol Sulfate 3 ML AMPUL.NEB 2.5 ML INHALATION (05:15)
--- NOTE | 2024-07-18 06:43 | PN.HOSP_ITS ---
Reason for Visit Reason for Visit: Diagnoses Obesity, class 1 (07/17/24) Obstructive sleep apnea (adult) (pediatric) (07/17/24) Other chronic pain (07/17/24) Influenza due to other identified influenza virus with other respiratory manifestations (07/17/24) Unspecified asthma with (acute) exacerbation (07/17/24) Pain in left hip (07/17/24) Other abnormalities of breathing (07/17/24) Syncope and collapse (07/17/24) Subjective Subjective Patient overnight could not tolerate the hospital BIPAP, otherwise able to maintain on room air. Patient also notes dizziness but this a chronic component following with neurology. Currently patient feels as though she is improved since initial ED arrival with less coughing and less dyspnea. She does have a very significant hoarse voice. Patient denies fevers, chills, nausea, emesis, abdominal pain, chest pain. Objective Data Objective Data Vital Signs: Vital Signs Temp Pulse Resp BP Pulse Ox O2 Del Method O2 Flow Rate 97.7 F L 89 20 H 139/59 H 97 Nasal Cannula 2 07/18/24 04:45 07/18/24 06:03 07/18/24 05:16 07/18/24 04:45 07/18/24 04:45 07/18/24 04:50 07/18/24 04:50 FiO2 21 07/17/24 23:50 Oxygen Flow Rate (L/min) 2 Oxygen Delivery Method Nasal Cannula Weight: 169 lb 1.513 oz Body Mass Index (BMI) 35.4 Intake & Output: Intake and Output for Last 24 Hours 07/16/24 07/17/24 07/18/24 23:59 23:59 23:59 Intake Total 500 / 500 Balance 500 / 500 Lab / Micro Data 07/18/24 03:33 07/18/24 03:33 Labs: Laboratory Results - last 24 hr 07/17/24 19:35: WBC 13.4 H, RBC 5.33, Hgb 15.1 H, Hct 47.7 H, MCV 89.5, MCH 28.3, MCHC 31.7 L, RDW Std Deviation 43.3, RDW Coeff of Jaz 13.2, Plt Count 307, MPV 10.8, Immature Gran % (Auto) 0.500, Neut % (Auto) 78.8 H, Lymph % (Auto) 10.4 L, [place] % (Auto) 7.6, Eos % (Auto) 2.1, Baso % (Auto) 0.6, Absolute Neuts (auto) 10.5 H, Absolute Lymphs (auto) 1.39, Nucleated RBC % 0, Sodium 141, Potassium 3.5, Chloride 104, Carbon Dioxide 29.0, Anion Gap 8, BUN 17, C reatinine 1.26 H, Estim Creat Clear Calc 29.68, Est GFR (MDRD) Af Amer 52 L, Est GFR (MDRD) Non-Af 43 L, BUN/Creatinine Ratio 13.5, Glucose 121 H, Calcium 10.7 H , TSH 2.040 07/18/24 03:33: WBC 13.0 H, RBC 4.69, Hgb 13.2, Hct 41.3, MCV 88.1, MCH 28.1, MCHC 32.0, RDW Std Deviation 42.7, RDW Coeff of Jaz 13.2, Plt Count 244, MPV 10.2, Immature Gran % (Auto) 0.300, Neut % (Auto) 78.0 H, Lymph % (Auto) 11.4 L, [place] % (Auto) 7.5, Eos % (Auto) 2.3, Baso % (Auto) 0.5, Absolute Neuts (auto) 10.2 H, Absolute Lymphs (auto) 1.48, Nucleated RBC % 0, Sodium 139, Potassium 3.4 L, Chloride 106, Carbon Dioxide 28.0, Anion Gap 5, BUN 20 H, Creatinine 0.82, Estim Creat Clear Calc 48.41, Est GFR (MDRD) Af Amer 85, Est GFR (MDRD) Non-Af 71, BUN/Creatinine Ratio 24.3 H, Glucose 109 H, Calcium 10.0, Phosphorus 3.1, Magnesium 2.1, Total Bilirubin 0.80, AST 17, ALT 17, Alkaline Phosphatase 102, Total Protein 6.1 L, Albumin 2.8 L, Globulin 3.3, Albumin/Globulin Ratio 0.8 L Micro: Microbiology 07/17/24 19:43 Mucosa - Nose SARS-CoV-2, Influenza & RSV (PCR) - Final Influenzae A ABG Data ABG results: ABG 07/17/24 23:08 Specimen Type ART Sample Site L Radial pH 7.42 Bicarbonate Actual 24.9 Total CO2 26 Base Excess 1 O2 Saturation 99 O2 % 2.0 ABG pCO2 38.1 ABG pO2 131 H Jarod Test Positive O2 Delivery Device Cannula Vent Mode Not entered Radiography Diagnostic Testing: Radiology Impression Chest X-Ray 07/17/24 19:40 IMPRESSION: No radiographic evidence of acute cardiopulmonary disease. Electronically Signed: Norris Gutierrez, DO at 22:09 EST Reading Location ID and State: [facility] / [place] Tel [phone], Service support , Physical Exam Narrative Physical Examination: General: Awake, alert, oriented x 3 and cooperative, seated upright in the MS bed, fatigued, hoarse voice, does not appear significantly dyspneic, able to get up and moved to the restroom with assist and walker. Skin: Normal color, normal turgor, no icterus, no cyanosis except occasional stage ecchymoses, abrasion HEENT: AT/NC, EOMI, PERRLA, mildly dry MM. Lungs: Diminished, greater bases, mild increased respiratory rate but no distress, no rales, ronchi or wheezing. Heart: Regular rate and rhythm; no gallop, rub audible. Abdomen: Soft, obese, NTTP, ND, mildly hyperactive BS. Extremities: No cyanosis, no clubbing, mild distal trace edema Neurological: Patient awake, alert, oriented as noted, cognitive function intact; pupils equally reactive to light and accommodation, cranial nerves grossly normal, moving all 4 extremities, no focal deficits, strength moderately to severely globally decreased. Psychiatric: Affect appears fatigued, notes feels improved since initial ED arrival, no acute evidence of depressive or anxiety feelings. Assessment & Plan Assessment/Plan (1) Influenza A: PLAN: Plan The patient is an 83 y/o F w/ PMHx: COPD/Asthma, SHIRA on BIPAP, Hx TIA, Alzheimer dementia, CKD unclear stage, possible type II versus III based on GFR trending but no remote labs noted, Obesity who presents to the [facility] ED on 07/17/24 with history of onset dyspnea, fatigue and malaise with nonproductive cough noting that her [id number] who she lives with recently tested positive for influenza earlier in the day and had similar symptoms prompting ED evaluation to be cautious. #1. Acute Hypoxia (Noted 88% on RA in the ED upon evaluation) secondary to Acute Influenza A Viral Syndrome complicated by #3: CXR in the ED w/ with no acute cardiopulmonary findings. Rapid SARS COVID/influenza/RSV with positive influenza A. Admitted to [place], maintain on oxygen with wean as tolerated although currently only needing at night when she would normally be using PAP therapy, continue ATC budesonide, PRN albuterol, HOB, IS parameters, maintained on tamiflu given timeline, continued on IV solumedrol, PT/OT/CM consultations for discharge planning. #2. Near syncopal event, suspected likely secondary to hypoxia related to #1: Patient attempting to ambulate with near syncopal sensation, maintain on fall precaution, high suspicion secondary to oxygenation being decreased with #1, PT/OT/case met consulted for discharge planning, ECHO pending. #3. Chronic COPD/asthma: Will maintain on oxygen with wean as tolerated to room air, maintain on ATC budesonide therapy, PRN albuterol, HOB, IS parameters. #4. Hypokalemia: Admission K+ 3.5, repeat 07/18/2024 potassium 3.4, magnesium level 2.1, supplementation given, repeat level in AM. #5. Alzheimer's disease, unclear severity, unclear behavioral disturbance history: Complicates presentation, not on any medication per current list, maintain on fall precautions, PT/OT/case management consulted for discharge planning Hypertension: Will temporally hold diuretic, judiciously hydrate, PRN hydralazine. #6. Hypertension: Continue home regimen including NG transdermal, holding diuretic temporarily, PRN hydralazine. #7. Hyperlipidemia: We will continue patient home statin and ezetimibe regimen. #8. Chronic Kidney Disease Stage Unclear type, Possible Type II versus Type III Unclear subtype based on current admission GFR trending: Admission BUN/Cr 17/1.26, GFR 43, baseline renal function unknown, 07/18/24 BUN/Cr 20/0.82, GFR 71, thus unclear staging, continue to trend. #9. History TIA: Noted aspirin allergy but uncertain, also NSAID allergy listed, continue HTN regimen with alterations as noted, continue statin therapy. #10. Osteoarthritis, Chronic L hip pain: Ongoing, stable, encourage offloading, fall precautions, PT/OT consulted as noted. #11. SHIRA: Unable to tolerate hospital BIPAP, using q HS oxygen supplementation instead. #12. Obesity: Weight loss and lifestyle changes encouraged. #13. DVT prophylaxis: Lovenox. #14. CODE status: Full code. Charges/Coding Visit Charges Inpatient E&M: 99899 Subs Hosp L2
[2024-07-18] MEDS: Potassium Chloride Oral Tablet 20 MEQ 40 MEQ PO (08:39)
[2024-07-18] MEDS: Enoxaparin 40 MG/0.4 ML Syringe SC (08:40)
[2024-07-18] MEDS: Cholecalciferol (Vit D3) 125 MCG CAPSULE (5,000 UNITS) PO (08:40)
[2024-07-18] MEDS: Famotidine 20 MG Tablet PO (08:40)
[2024-07-18] MEDS: Oseltamivir Phosphate 30 MG Capsule PO ×2 (08:40→20:51)
[2024-07-18] MEDS: Ascorbic Acid 500 MG Tablet 1000 MG PO ×2 (08:41→17:34)
[2024-07-18] MEDS: Ezetimibe 10 MG Tablet PO (08:41)
[2024-07-18] MEDS: Zinc Sulfate 50 mg zinc (220 mg) ORAL capsule PO (08:41)
[2024-07-18] MEDS: Nitroglycerin 0.2 MG Patch TD (08:43)
[2024-07-18] MEDS: Acetaminophen 325 MG Tablet 650 MG PO (08:56)
[2024-07-18] MEDS: Ondansetron 4 MG/2 ML Vial IV (10:26)
[2024-07-18] MEDS: Budesonide Respules 0.5 MG/2 ML AMPUL.NEB. INHALATION ×2 (11:26→20:11)
--- NOTE | 2024-07-18 12:37 | CASEMGMT ---
BEE HERNANDEZ Assessment: Face to Face with pt for initial transition planning/care coordination assessment. BEE HERNANDEZ introduced self and role at [facility], pt voices understanding and consents to assessment. Pt is A&O x2 and answers all questions appropriately at this time. Pt sitting up in chair in no distress. Care providers, pharmacy, and demographics verified/updated. Strata: 1 Admitting Dx: Acute Influenza A Resp. Insufficiency. PCP: Hany Specialists: Amrit Neurologist Preferred Pharmacy: [facility] Insurance: [facility] Prescription Benefit: yes LNOK: VENICE [place] Living Arrangements: Pt lives with VENICE in a 1 story home with 4 steps to enter. ADLs: VENICE assists Pt with groceries and cleaning. Transportation: VENICE provides transportation. DME: [employer], Shower chair, BiPap, Pt says has a concentrator and portable tanks at home - she thinks it is through [employer], States someone is able to bring in a portable tank if she needs to DC home with O2. HHC/SNF: States previously at SNF and had HHC in the past but does not recall who it was with. Pt states no concerns with going home at time of dc. Pt states no further concerns/needs. BEE HERNANDEZ attempted to call VENICE to confirm accuracy due to some confusion on Pt end, number on file not working. Called number listed for nephew, he provided updated number for VENICE. Stated Pt is currently receiving HHC services but does not know who she is getting HHC through. BEE HERNANDEZ attempted to call VENICE, no answer. CM to follow. Advised pt to ask CM if any further question/concerns/needs arise, voices understanding. Pt Goal: Home Plan: Home, follow for O2 changes. Determine HHC agency and restart care. Nuha GAMBOA CM
--- NOTE | 2024-07-18 13:01 | CASEMGMT ---
Addendum entered by Angle Martinez 07/18/24 13:24: Tika called BEE HERNANDEZ back, she states Pt has a concentrator and O2 tank but she does not know who she gets O2 through. [facility] Pt never uses oxygen at home. [facility] Pt lives next to her but Pt has been staying with her for the past couple months. [facility] Pt has dementia and Alzheimer's and is not an accurate historian. [facility] Pt currently set up with [facility]. Original Note: BEE HERNANDEZ called and left VM for Tika MILLARD, to call back about who O2 is through and what [facility] agency Pt is currently using.
--- NOTE | 2024-07-18 13:36 | CASEMGMT ---
BEE HERNANDEZ reached out to [facility] and [facility] to see if they have Pt in system, both denied.
--- NOTE | 2024-07-18 13:49 | CASEMGMT ---
BEE HERNANDEZ Called [facility], Jhon states they do not have Patient on file. BEE HERNANDEZ Called [facility], stated they just DC'd patient on 07/08/24, states they do not have any O2 on file.
--- NOTE | 2024-07-18 13:57 | CASEMGMT ---
BEE HERNANDEZ called Tika again, she found an old bill for O2 through [facility]. She said the O2 tanks are all empty. Not sure if they are still paying for services or not. BEE HERNANDEZ called [facility] and left for a call back.
--- NOTE | 2024-07-18 14:12 | CASEMGMT ---
BEE HERNANDEZ called Coleman with [employer], states Pt has order for 2L continuous O2. Informed him that Pt tanks are empty. He stated to have family call his number and get them exchanged. They will do that today in case Pt is DC over the weekend. Called and spoke with Tika and Jorge and provided them with information. They also stated they did find 1 tank that is full. They will call Coleman to have tanks swapped with full tanks.
[2024-07-18] MEDS: 0.9% Saline Lock 10 ML Syringe IV (20:50)
[2024-07-18] MEDS: Atorvastatin Calcium 10 MG Tablet PO (20:51)
[2024-07-18] MEDS: BENZOCAINE/MENTHOL 1 LOZENGE MUCOUS MEM (20:55)
[2024-07-19] VITALS (11 sets, daily range): BP systolic 111–149; BP diastolic 37–64; PULSE 58–88; RESP 16–20; TEMP 36.7–36.8; O2SAT 90–98; BMI 35.3
[2024-07-19 05:42] LABS: Absolute Lymphocyte Count 0.38 X10^3/uL (0.83-4.51); Basophil# 0.02 X10^3/uL; Basophil% 0.1 % (0-1); Hematocrit 41.9 % (37-47); Hemoglobin 13.2 g/dL (12.0-15.0); Lymphocyte # 0.38 X10^3/ul (0.83-4.51); Lymphocyte % 2.4 % (19-41); Mean Corp Hgb Conc 31.5 g/dL (32-36); Mean Corpuscular Hgb 28.2 pg (27.0-32.0); Mean Corpuscular Volume 89.5 fL (81-99); Mean Platelet Vol. 10.6 fl (6.2-12.0); Monocyte# 0.38 X10^3/uL; Monocyte% 2.4 % (0-10); NRBC Flagged by Analyzer 0 % (0-5); Neutrophil # 15.02 X10^3/uL (2.7-7.7); Neutrophil % 94.7 % (47-70); POSITIVE DIFFERENTIAL YES; Platelet Count 245 K/mm3 (150-450); RBC Distribution Width CV 13.1 % (11.6-14.6); RBC Distribution Width SD 42.6 fl (35.1-43.9); Red Blood Count 4.68 M/mm3 (4.2-5.4); White Blood Count 15.9 K/mm3 (4.4-11.0)
--- NOTE | 2024-07-19 06:26 | PN.HOSP_ITS ---
Reason for Visit Reason for Visit: Diagnoses Other chronic pain (07/17/24) Pain in left hip (07/17/24) Subjective Subjective Patient with no acute events overnight per self and per nursing report. Day prior she was working with therapies and seems to be progressing well with assistive device walker. She does become more dyspneic with exertion she notes and still has a mild cough with occasional wheezing. Oxygenation assessment this morning with 90% oxygenation off nasal cannula at rest but with ambulation she dropped to 86% and required 2 L to maintain 93% with increased tachypnea and work of breathing following. She does report a mild global headache. Patient denies fevers, chills, nausea, emesis, abdominal pain, chest pain. Objective Data Objective Data Vital Signs: Vital Signs Temp Pulse Resp BP Pulse Ox O2 Del Method O2 Flow Rate 98.1 F 61 18 135/58 H 94 Nasal Cannula 2 07/19/24 03:00 07/19/24 03:00 07/19/24 03:00 07/19/24 03:00 07/19/24 03:00 07/19/24 03:00 07/19/24 03:00 FiO2 21 07/17/24 23:50 Oxygen Flow Rate (L/min) 2 Oxygen Delivery Method Nasal Cannula Weight: 169 lb 1.513 oz Body Mass Index (BMI) 35.4 Intake & Output: Intake and Output for Last 24 Hours 07/17/24 07/18/24 07/19/24 23:59 23:59 23:59 Intake Total 1500 / 1500 Balance 1500 / 1500 Lab / Micro Data 07/19/24 04:49 07/19/24 04:49 Labs: Laboratory Results - last 24 hr 07/19/24 04:49: WBC 15.9 H, RBC 4.68, Hgb 13.2, Hct 41.9, MCV 89.5, MCH 28.2, M CHC 31.5 L, RDW Std Deviation 42.6, RDW Coeff of Jaz 13.1, Plt Count 245, MPV 10.6, Immature Gran % (Auto) 0.400, Neut % (Auto) 94.7 H, Lymph % (Auto) 2.4 L, [place] % (Auto) 2.4, Eos % (Auto) 0.0, Baso % (Auto) 0.1, Absolute Neuts (auto) 15.0 H, Absolute Lymphs (auto) 0.38 L, Nucleated RBC % 0 Micro: Microbiology 07/17/24 19:43 Mucosa - Nose SARS-CoV-2, Influenza & RSV (PCR) - Final Influenzae A Radiography Diagnostic Testing: Radiology Impression Echocardiogram 07/17/24 22:36 Interpretation Summary Normal LV size. Left ventricular systolic function is normal. The left ventricular ejection fraction is 70 %. Contrast injection was performed. Ordering Physician: Niall Leong Referring Physician: Urbano Mir Performed By: Christine Emerson, CS Hip/Pelvis X-Ray 07/18/24 01:12 IMPRESSION: No evidence of displaced pelvic or hip fracture. Electronically Signed: Dallas Benavidez MD at 10:05 EST , Physical Exam Narrative Physical Examination: General: Awake, alert, oriented x 3 and cooperative, seated upright at the MS bedside, still hoarse voice but improved, ill-appearing but lessened than day prior. Skin: Normal color, normal turgor, no icterus, no cyanosis except occasional stage ecchymoses, abrasion HEENT: AT/NC, EOMI, PERRLA, MMM. Lungs: Diminished at the bases, coarse, occasional end expiratory wheezing, no evidence of any distress, remains on supplemental oxygen. Heart: Regular rate and rhythm; no gallop, rub audible. Abdomen: Soft, obese, NTTP, ND, normal BS. Extremities: No cyanosis, no clubbing, mild distal trace edema Neurological: Patient awake, alert, oriented as noted, cognitive function intact; pupils equally reactive to light and accommodation, cranial nerves grossly normal, moving all 4 extremities, no focal deficits, strength improving but remains, moderately to severely globally decreased. Psychiatric: Affect appears fatigued, improved although since day prior, no acute evidence of depressive or anxiety feelings. Assessment & Plan Assessment/Plan (1) Influenza A: PLAN: Plan The patient is an 83 y/o F w/ PMHx: COPD/Asthma, SHIRA on BIPAP, Hx TIA, Alzheimer dementia, CKD unclear stage, possible type II versus III based on GFR trending but no remote labs noted, Obesity who presents to the [facility] ED on 07/17/24 with history of onset dyspnea, fatigue and malaise with nonproductive cough noting that her [id number] who she lives with recently tested positive for influenza earlier in the day and had similar symptoms prompting ED evaluation to be cautious. #1. Acute Hypoxia (Noted 88% on RA in the ED upon evaluation) secondary to Acute Influenza A Viral Syndrome complicated by #3: CXR in the ED w/ with no acute cardiopulmonary findings. Rapid SARS COVID/influenza/RSV with positive influenza A. Admitted to [place], maintain on oxygen with wean as tolerated although currently only needing at night when she would normally be using PAP therapy, continue ATC budesonide, PRN albuterol, HOB, IS parameters, maintain on tamiflu given timeline, continued on IV solumedrol, PT/OT/CM consultations ongoing. 07/19/2024 as of now likely would be able to return to home however with oxygenation trial 07/19/2024 requiring 90% at rest no oxygen however 86% with activity with improvement to 93% on 2 L with significant increased work of breathing and tachypnea would plan to reevaluate 07/20/2024 and if improving discharge likely on oxygen therapies. #2. Near syncopal event, suspected likely secondary to hypoxia related to #1: Patient attempting to ambulate with near syncopal sensation, maintain on fall precaution, high suspicion secondary to oxygenation being decreased with #1, PT/OT/case met consulted for discharge planning, ECHO with normal LV size, LV systolic function normal, LVEF 70%. #3. Chronic COPD/asthma: Will maintain on oxygen with wean as tolerated to room air, maintain on ATC budesonide therapy, PRN albuterol, HOB, IS parameters. #4. Hypokalemia, hypophosphatemia: Admission K+ 3.5, repeat 07/18/2024 potassium 3.4, magnesium level 2.1, supplementation given, 07/19/2024 potassium 4.3, normalized repeat level in AM. 07/19/2024 phosphorus 2.4, will initiate Neutra-Phos packets and repeat level in AM. #5. Alzheimer's disease, unclear severity, unclear behavioral disturbance history: Complicates presentation, not on any medication per current list, maintain on fall precautions, PT/OT/case management consulted for discharge planning Hypertension: Will temporally hold diuretic, judiciously hydrate, PRN hydralazine. #6. Hypertension: Continue home regimen including NG transdermal, holding diuretic temporarily, PRN hydralazine. #7. Hyperlipidemia: We will continue patient home statin and ezetimibe regimen. #8. Chronic Kidney Disease Stage Unclear type, Possible Type II especially given GFR trending: Admission BUN/Cr 17/1.26, GFR 43, baseline renal function unknown, 07/18/24 BUN/Cr 20/0.82, GFR 71--> 07/19/2024 BUN/creatinine 21/0.78, GFR 90, appears more likely type II, continue to trend. #9. History TIA: Noted aspirin allergy but uncertain, also NSAID allergy listed, continue HTN regimen with alterations as noted, continue statin therapy. #10. Osteoarthritis, Chronic L hip pain: Ongoing, stable, encourage offloading, fall precautions, PT/OT consulted as noted. #11. SHIRA: Unable to tolerate hospital BIPAP, using q HS oxygen supplementation instead. #12. Obesity: Weight loss and lifestyle changes encouraged. #13. DVT prophylaxis: Lovenox. #14. CODE status: Full code. Charges/Coding Visit Charges Inpatient E&M: 99520 Subs Hosp L2
[2024-07-19 06:44] LABS: ALB/GLOB Ratio 0.7 RATIO (0.9-2.4); AST(SGOT) 20 U/L (15-37); Alanine Aminotransfer ALT/SGPT 18 U/L (13-56); Albumin, Serum 2.6 g/dL (3.2-5.0); Alkaline Phosphatase 104 U/L (45-117); Anion Gap 6 (5-15); BUN 21 mg/dL (7-18); BUN/Creat Ratio 26.8 RATIO (10-20); Calcium,Total 10.2 mg/dL (8.5-10.1); Chloride 110 mmol/L (98-107); Creatinine, Serum 0.78 mg/dL (0.55-1.02); EST Glomerular Filtration Rate 75 mL/min (>60); Est Glom Filt Rate - Afr Amer 90 mL/min (>60); Estimated Creatinine Clearance 49.63 ml/min; Globulin 3.6 g/dL (2.2-4.2); Glucose 184 mg/dL (74-106); Magnesium 2.2 mg/dL (1.6-2.6); Phosphorus 2.4 mg/dL (2.5-4.9); Potassium 4.3 mmol/L (3.5-5.1); Protein, Total 6.2 g/dL (6.4-8.2); Sodium Level 139 mmol/L (136-145)
[2024-07-19] MEDS: Budesonide Respules 0.5 MG/2 ML AMPUL.NEB. INHALATION ×2 (07:05→17:23)
[2024-07-19] MEDS: Enoxaparin 40 MG/0.4 ML Syringe SC (09:35)
[2024-07-19] MEDS: Ascorbic Acid 500 MG Tablet 1000 MG PO ×2 (09:36→18:10)
[2024-07-19] MEDS: Oseltamivir Phosphate 30 MG Capsule PO ×2 (09:36→19:47)
[2024-07-19] MEDS: Nitroglycerin 0.2 MG Patch TD (09:36)
[2024-07-19] MEDS: Famotidine 20 MG Tablet PO (09:36)
[2024-07-19] MEDS: Zinc Sulfate 50 mg zinc (220 mg) ORAL capsule PO (09:36)
[2024-07-19] MEDS: Na Biphos/Potassium Phosphate PACKET 1 PACKET PO ×3 (09:37→19:44)
[2024-07-19] MEDS: Ezetimibe 10 MG Tablet PO (09:37)
[2024-07-19] MEDS: Cholecalciferol (Vit D3) 125 MCG CAPSULE (5,000 UNITS) PO (09:37)
[2024-07-19] MEDS: guaiFENesin 10 ML UDC (200MG/10ML) 20 ML PO (15:37)
[2024-07-19] MEDS: Acetaminophen 325 MG Tablet 650 MG PO (15:37)
[2024-07-19] MEDS: Albuterol 2.5 MG/3 ML VIAL.NEB. INHALATION (17:23)
--- NOTE | 2024-07-19 18:30 | RAD_ITS ---
INDICATION: cough EXAMINATION/TECHNIQUE: X-RAY - XR Chest 2 Views COMPARISON: 07/17/2024 FINDINGS: LINES/DEVICES: None. LUNGS: No consolidation, edema or effusion. No pneumothorax. MEDIASTINUM AND CARDIOVASCULAR STRUCTURES: Cardiac silhouette stable within normal limits. BONES AND SOFT TISSUES: No acute findings. RAD/Chest PA and Lateral IMPRESSION: No radiographic evidence of acute cardiopulmonary disease. Electronically Signed: Lino Diane MD at 20:45 EST ,
[2024-07-19] MEDS: Atorvastatin Calcium 10 MG Tablet PO (19:47)
[2024-07-19] MEDS: 0.9% Saline Lock 10 ML Syringe IV (19:48)
--- NOTE | 2024-07-19 21:10 | CASEMGMT ---
BEE HERNANDEZ NOTE: RN CM to room. Pt sitting on edge of bed. Nephew @ bedside. Pt wishes to discharge home [id number]. Discussed therapy. She feels she is weak and would like C @ co, stating she would like the same C agency that she was just discharged from and declines wanting list of other C options. Pt was just dc'd from [facility]. Pt and nephew made aware HHC can not be set up on the weekend, but this would be initiated on Sunday and someone would f/u with pt on Sunday re: response. They voice understanding. They deny having other discharge questions/concerns. E-mail sent to rani Persaud machine assistant re: referral to [facility] needed. [place] SWAN RN, CM
[2024-07-19] MEDS: Nystatin Powder 15gm Bottle 1 APPLIC TOPICAL (22:14)
[2024-07-19] MEDS: MELATONIN 3 MG TABLET PO (22:16)
[2024-07-20 02:49] VITALS: BP 157/57; PULSE 54; RESP 16; TEMP 36.3; O2SAT 94
[2024-07-20] MEDS: Na Biphos/Potassium Phosphate PACKET 1 PACKET PO (04:55)
[2024-07-20 05:22] LABS: Absolute Lymphocyte Count 0.56 X10^3/uL (0.83-4.51); Absolute Neutrophil Count 9.9 X10^3/uL (2.0-7.7); Basophil# 0.02 X10^3/uL; Basophil% 0.2 % (0-1); Hemoglobin 12.8 g/dL (12.0-15.0); Lymphocyte # 0.56 X10^3/ul (0.83-4.51); Mean Corpuscular Hgb 28.3 pg (27.0-32.0); Mean Corpuscular Volume 88.3 fL (81-99); Mean Platelet Vol. 10.8 fl (6.2-12.0); Monocyte# 0.63 X10^3/uL; Monocyte% 5.7 % (0-10); NRBC Flagged by Analyzer 0 % (0-5); Neutrophil # 9.85 X10^3/uL (2.7-7.7); Neutrophil % 88.4 % (47-70); POSITIVE DIFFERENTIAL YES; Platelet Count 263 K/mm3 (150-450); RBC Distribution Width CV 13.1 % (11.6-14.6); RBC Distribution Width SD 42.5 fl (35.1-43.9); Red Blood Count 4.53 M/mm3 (4.2-5.4); White Blood Count 11.1 K/mm3 (4.4-11.0)
[2024-07-20 06:00] VITALS: BMI 36.6
--- NOTE | 2024-07-20 06:24 | PCM.DC.SUM ---
Providers Date of Admission: 07/17/24 Date of Discharge: 07/20/24 Primary Care Physician: Dr. James Leach MD Reason For Visit: ACUTE INFLUENZA A RESPIRATORY INSUFFICIENCY & NEAR Diagnosis Discharge Diagnosis (1) Influenza A: Status: Acute Code(s): J10.1 - Influenza due to other identified influenza virus with other respiratory manifestations Plan: DISCHARGE DIAGNOSES: #1. Acute Hypoxia (Noted 88% on RA in the ED upon evaluation) secondary to Acute Influenza A Viral Syndrome complicated by Acute on Chronic COPD/Asthma exacerbation #2. Near syncopal event, suspected likely secondary to hypoxia related to #1 #3. Hypokalemia, hypophosphatemia, secondary to #1, resolved #4. Alzheimer's disease, unclear severity, unclear behavioral disturbance history #5. Hypertension #6. Hyperlipidemia #7. Chronic Kidney Disease Stage Unclear type,Type II suspected #8. History TIA #9. Osteoarthritis, Chronic L hip pain #10. SHIRA on BIPAP q HS #11. Obesity #12. CODE status: Full code. Medications at Discharge Home Medications albuterol sulfate 90 mcg/actuation aerosol inhaler 2 puff inhalation .qid PRN wheezing 07/17/24 ezetimibe 10 mg tablet 10 mg PO DAILY 07/17/24 furosemide 20 mg tablet 20 mg PO DAILY PRN edema 07/17/24 nitroglycerin 0.2 mg/hr transdermal 24 hour patch patch transdermal 07/17/24 rosuvastatin 5 mg tablet 5 mg PO DAILY 07/17/24 triamterene 37.5 mg-hydrochlorothiazide 25 mg capsule 1 cap PO DAILY 07/17/24 guaifenesin 100 mg/5 mL oral liquid 200 mg (10 mL) PO Q4H PRN PRN Cough #473 mL 07/19/24 ipratropium 0.5 mg-albuterol 3 mg (2.5 mg base)/3 mL nebulization soln 3 ml inhalation Q6H Influenza, COPD/Asthma 14 days #180 mL 07/19/24 oseltamivir 30 mg capsule 30 mg PO BID #7 caps 07/19/24 prednisone 10 mg tablet See Taper PO DAILY Influenza, Hypoxia, COPD/Asthma #30 tabs 07/19/24 Hospital Course Operations None Procedures EKG Summary of Care Provided Minutes Spent on Discharge: 35 Hospital Course: The patient is an 83 y/o F w/ PMHx: COPD/Asthma, SHIRA on BIPAP, Hx TIA, Alzheimer dementia, CKD unclear stage, possible type II versus III based on GFR trending but no remote labs noted, Obesity who presented to the [facility] ED on 07/17/24 with history of onset dyspnea, fatigue and malaise with nonproductive cough noting that her sibmja-hx-xer who she lives with recently tested positive for influenza earlier in the day and had similar symptoms prompting ED evaluation to be cautious. CXR in the ED w/ with no acute cardiopulmonary findings. Rapid SARS COVID/influenza/RSV with positive influenza A. Admitted to [place], maintained on oxygen with wean as tolerated, ATC budesonide, PRN albuterol, HOB, IS parameters, maintained on tamiflu given timeline, continued on IV solumedrol, PT/OT/CM consultations ongoing. 07/19/2024 requiring 90% at rest with no oxygen; however, 86% with activity with improvement to 93% on 2 L with significant increased work of breathing and tachypnea. Her oxygen testing was reviewed and patient qualifies for home equipment and portability as the patient is mobile in the home and community. ECHO with normal LV size, LV systolic function normal, LVEF 70%. Patient with mildly increased sputum production therefore chest x-ray obtained 07/19/2024 and was unremarkable. Sputum culture obtained 07/20/2024 with recommended follow-up with primary care physician to review final results given this would take potentially up to 2 to 4 days. 07/20/24 improved but still requiring oxygen supplementation. Patient discharged to home in stable improved condition on continuous oxygen supplementation with wean per PCP at outpatient, encourage continued BiPAP nightly given return to home plan, completion of Tamiflu therapy, completion of steroid taper in addition to scheduled DuoNeb therapy for the next 10 to 14 days with then transition to as needed following which is what she had been using at home. Given electrolyte disturbances also recommended repeat levels outpatient with primary care physician as well as to ascertain possible underlying chronic kidney disease. Recommended follow-up with primary care within 3 to 5 days. DAY OF DISCHARGE PROGRESS NOTE: Subjective: Patient without acute event overnight per self and nursing report. She notes feeling better with improvement of her hoarse voice, easier time of breathing and moving in her room. Patient is eager for discharge to home and understands will be discharged on continued oxygen which will have to be weaned outpatient, steroid taper, continued antiviral regimen and is amenable. Patient denies fever, chills, nausea, emesis, abdominal pain, chest pain. Patient will be discharged with follow-up with primary care physician within 3-5 days. Objective: T97.6, heart rate 54, BP 110/40, respiratory rate 16, 93% on 2 L nasal cannula. Physical Examination: General: Awake, alert, oriented x 3 and cooperative, seated upright at the MS bed, improved appearance even from day prior, voice continues to be less hoarse and she notes she is feeling better. Skin: Normal color, normal turgor, no icterus, no cyanosis except occasional stage ecchymoses, abrasion HEENT: AT/NC, EOMI, PERRLA, MMM, voice less hoarse. Lungs: Improved aeration, less diminished, still an occasional end expiratory wheeze, less coarse, moving with greater ease and breathing deeper without coughing. Heart: Regular rate and rhythm; no gallop, rub audible. Abdomen: Soft, obese, NTTP, ND, normal BS. Extremities: No cyanosis, no clubbing, mild distal trace edema Neurological: Patient awake, alert, oriented as noted, cognitive function intact; pupils equally reactive to light and accommodation, cranial nerves grossly normal, moving all 4 extremities, no focal deficits, strength improving, mildly to moderately globally decreased. Psychiatric: Affect appears more interactive, notes feeling improved, no acute evidence of depressive or anxiety feelings. Assessment and Plan: Please see hospital summary above. Weight / BMI Weight Weight: 174 lb 6.17 oz Body Mass Index (BMI) 36.6 ABG / Lab / Microbiology Data 07/20/24 03:42 07/20/24 03:42 Laboratory: Laboratory Results - last 24 hr 07/20/24 03:42: WBC 11.1 H, RBC 4.53, Hgb 12.8, Hct 40.0, MCV 88.3, MCH 28.3, MCHC 32.0, RDW Std Deviation 42.5, RDW Coeff of Jaz 13.1, Plt Count 263, MPV 10.8, Immature Gran % (Auto) 0.700, Neut % (Auto) 88.4 H, Lymph % (Auto) 5.0 L, Granite % (Auto) 5.7, Eos % (Auto) 0.0, Baso % (Auto) 0.2, Absolute Neuts (auto) 9.9 H, Absolute Lymphs (auto) 0.56 L, Nucleated RBC % 0, Sodium 138, Potassium 3.9, Chloride 108 H, Carbon Dioxide 27.0, Anion Gap 3 L, BUN 25 H, Creatinine 0.69, Estim Creat Clear Calc 50.45, Est GFR (MDRD) Af Amer 104, Est GFR (MDRD) Non-Af 86, BUN/Creatinine Ratio 36.2 H, Glucose 186 H, Calcium 10.5 H, Phosphorus 3.0, Total Bilirubin 0.20, AST 22, ALT 28, Alkaline Phosphatase 101, Total Protein 6.1 L, Albumin 2.6 L, Globulin 3.5, Albumin/Globulin Ratio 0.7 L Microbiology: Microbiology 07/17/24 19:43 Mucosa - Nose SARS-CoV-2, Influenza & RSV (PCR) - Final Influenzae A Radiography Diagnostic Testing: Radiology Impression Chest X-Ray 07/19/24 18:30 IMPRESSION: No radiographic evidence of acute cardiopulmonary disease. Electronically Signed: Lino Diane MD at 20:45 EST , D/C Instructions DC O2, CPAP, BIPAP Needs RN Home O2 Qualification: Home O2 Qualification: Is the patient on home oxygen No 07/19/24 05:34 Home O2 Qualification: AT REST 1- Pulse Ox at rest 90 07/19/24 05:34 Home O2 Qualification: WITH AMBULATION 1- Pulse Ox with ambulation 93 07/19/24 05:34 1- Oxygen Flow Rate with 2 07/19/24 05:34 ambulation PSN CPAP & BiPAP: BiPAP & CPAP Settings per PSN Mode BiPAP 07/17/24 23:50 Bipap Delivery Device Face Mask 07/17/24 23:50 BiPAP Inspiratory Pressure 12 07/17/24 23:50 BiPAP Expiratory Pressure 6 07/17/24 23:50 BiPAP Rate 12 07/17/24 23:50 Fraction of Inspired Oxygen ( 21 07/17/24 23:50 FIO2) Home O2 Discharge instructions: Yes Type of respiratory needs?: Oxygen (2) Oxygen frequency: Continuous Continuous oxygen liters per minute: 2 DC home with Oxygen: Yes Home O2 MD Review: I have reviewed the oxygen testing, and the patient qualifies for home oxygen equipment and portability. The patient is mobile in the home and the community. Meaningful Use Info Meaningful Use Meaningful Use Diagnoses (Choose all that apply): None applicable Ischemic Stroke Statin Dosing Therapy Reference: STATIN DOSE THERAPY REFERENCE: * Patients > 75 years receive moderate or high dose statin therapy. * Patients 75 years or YOUNGER should receive HIGH intensity statin dose unless contraindicated. You will be required to document reason for non-treatment if statin daily dose does not meet guidelines. HIGH DOSE STATIN THERAPY DAILY Atorvastatin > than or = to 40 mg Rosuvastatin > than or = to 20 mg Amlodipine + Atorvastatin > than or = to 2.5/40 mg Ezetimibe + Simvastatin 10/80 mg Simvastatin 80mg Discharge Plan Admission Admit Date/Time: 07/17/24 22:28 Primary Reason for Your Visit: Hypoxia, Influenza A, Near Syncope Attending Provider: Jennifer Jon Primary Care Provider: James Leahc Consulting Providers: Niall Leong Instructions Patient Instructions: Traveling with Oxygen, Using Oxygen Safely, Using Oxygen at Home, The Flu (Influenza) Additional Instructions / Restrictions: DISCHARGE INSTRUCTIONS/PLAN OF CARE: #1. Acute Hypoxia (Noted 88% on RA in the ED upon evaluation) secondary to Acute Influenza A Viral Syndrome complicated by Asthma/COPD Exacerbation: --CXR in the ED w/ with no acute cardiopulmonary findings. --Rapid SARS COVID/influenza/RSV with positive influenza A. --Treated with tamiflu, IV solumedrol steroids and oxygen as well as aerosol treatments. --Please complete the tamiflu regimen and also steroid taper. --Please maintain continuous oxygen supplementation until re-evaluated per your primary care physician and appropriately weaned off. --Please use your duoneb therapy scheduled every 6 hours for the next 10-14 days and then may return to only as needed. --Repeat CXR 07/19/24 without acute findings. --Sputum culture sent 07/19/24 but will take several days to result. Please follow-up these results with your primary care physician. If notable bacterial growth is noted you may require antibiotic therapies but upon discharge you have remained afebrile and clinically improved from the viral illness. #2. Hypokalemia, hypophosphatemia: --During the admission you had electrolyte abnormalities including low phosphorous and potassium which were supplemented. We recommend having repeat levels at follow-up with your primary care physician outpatient at follow-up. #3. Possible Chronic Kidney Disease Stage Unclear type, Possible Type II especially given GFR trending: --Admission BUN/Cr 17/1.26, GFR 43, baseline renal function unknown upon presentation. Initially unclear if possibly type II versus type III however trending with rise in GFR more consistent with type II. 07/20/24 BUN/Cr 25/0.69, GFR 86. --We recommend repeat basic metabolic panel at follow-up with primary care physician given also need to assess potassium level to further address and monitor possible chronic renal disease. Discharge Orders/Prescriptions Prescriptions: New guaifenesin 100 mg/5 mL Liquid 200 mg PO Q4H PRN PRN (Reason: Cough) Qty: 473 0RF oseltamivir 30 mg Capsule 30 mg PO BID Qty: 7 0RF prednisone 10 mg tablet See Taper PO DAILY Qty: 30 0RF Taper: Prednisone Taper 40 mg WITH BREAKFAST for 3 Days and 0 Hour 30 mg WITH BREAKFAST for 3 Days and 0 Hour 20 mg WITH BREAKFAST for 3 Days and 0 Hour 10 mg WITH BREAKFAST for 3 Days and 0 Hour Continued albuterol sulfate 90 mcg/actuation HFA aerosol inhaler 2 puff INHALATION .qid PRN (Reason: wheezing) Patient Comments: inhale 2 puffs by mouth up to four times a day if needed furosemide 20 mg tablet 20 mg PO DAILY PRN (Reason: edema) ezetimibe 10 mg tablet 10 mg PO DAILY nitroglycerin 0.2 mg/hr patch 24 hour transdermal triamterene-hydrochlorothiazid 37.5-25 mg capsule 1 cap PO DAILY rosuvastatin 5 mg tablet 5 mg PO DAILY Changed ipratropium-albuterol 0.5 mg-3 mg(2.5 mg base)/3 mL solution for nebulization 3 ml inhalation Q6H 14 Days Qty: 180 0RF Rx Instructions: Please continue scheduled aerosols for the next 10-14 days and then may return to only as needed. Referrals / Follow Up: Jony Edwards MD [Non-Staff] - (Follow-up withikn 3-5 days to review admission.) James Leach MD [Primary Care Provider] - Disposition Disposition (needs filled in before D/C Order can be placed): Home Health Service Charges/Coding Visit Charges Inpatient E&M: 28376 Disch Hosp >30min
[2024-07-20 06:55] LABS: ALB/GLOB Ratio 0.7 RATIO (0.9-2.4); AST(SGOT) 22 U/L (15-37); Alanine Aminotransfer ALT/SGPT 28 U/L (13-56); Albumin, Serum 2.6 g/dL (3.2-5.0); Alkaline Phosphatase 101 U/L (45-117); Anion Gap 3 (5-15); BUN 25 mg/dL (7-18); BUN/Creat Ratio 36.2 RATIO (10-20); Calcium,Total 10.5 mg/dL (8.5-10.1); Chloride 108 mmol/L (98-107); Creatinine, Serum 0.69 mg/dL (0.55-1.02); EST Glomerular Filtration Rate 86 mL/min (>60); Est Glom Filt Rate - Afr Amer 104 mL/min (>60); Estimated Creatinine Clearance 50.45 ml/min; Globulin 3.5 g/dL (2.2-4.2); Glucose 186 mg/dL (74-106); Potassium 3.9 mmol/L (3.5-5.1); Protein, Total 6.1 g/dL (6.4-8.2); Sodium Level 138 mmol/L (136-145)
[2024-07-20] MEDS: Albuterol 2.5 MG/3 ML VIAL.NEB. INHALATION (06:57)
[2024-07-20] MEDS: Budesonide Respules 0.5 MG/2 ML AMPUL.NEB. INHALATION (06:57)
[2024-07-20 07:05] VITALS: PULSE 83; RESP 16
[2024-07-20 08:04] VITALS: BP 110/40; PULSE 54; RESP 16; TEMP 36.4; O2SAT 93
[2024-07-20 08:22] VITALS: O2SAT 94
--- NOTE | 2024-07-20 09:40 | DCINST_ITS ---
Discharge Instructions Diet Discharge Diet: Low fat / Low cholesterol DC O2, CPAP, BIPAP needs RN Home O2 Qualification: Home O2 Qualification: Is the patient on home oxygen No 07/19/24 05:34 Home O2 Qualification: AT REST 1- Pulse Ox at rest 90 07/19/24 05:34 Home O2 Qualification: WITH AMBULATION 1- Pulse Ox with ambulation 93 07/19/24 05:34 1- Oxygen Flow Rate with 2 07/19/24 05:34 ambulation PSN CPAP & BiPAP: BiPAP & CPAP Settings per PSN Mode BiPAP 07/17/24 23:50 Bipap Delivery Device Face Mask 07/17/24 23:50 BiPAP Inspiratory Pressure 12 07/17/24 23:50 BiPAP Expiratory Pressure 6 07/17/24 23:50 BiPAP Rate 12 07/17/24 23:50 Fraction of Inspired Oxygen ( 21 07/17/24 23:50 FIO2) Home O2 Discharge instructions: Yes Type of respiratory needs?: Oxygen (2) Oxygen frequency: Continuous Continuous oxygen liters per minute: 2 Dressing / Incision Discharge Activity: - (Encourage at least routine activity in the home and out of bed to chair with all meals. Avoid > moderate activity until cleared per primary care physician follow-up.) May resume sexual activity in: 10-14 days Weight Bearing Status: Weight bearing as tolerated Dressing / Incision Call your doctor if you observe: Fever of 101 or Higher, Shortness of breath, Dizziness, Fainting spells, Swelling in the ankles, Chest pain, Increased palpitations (irregular heartbeat), Calf discomfort and Uncontrolled pain Follow Up Care Test Results: Test results from this visit will be discussed in further detail at your follow- up appointment, if applicable. Discharge Plan Admission Admit Date/Time: 07/17/24 22:28 Primary Reason for Your Visit: Hypoxia, Influenza A, Near Syncope Attending Provider: Jennifer Jon Primary Care Provider: James Leach Consulting Providers: Niall Leong Instructions Patient Instructions: Traveling with Oxygen, Using Oxygen Safely, Using Oxygen at Home, The Flu (Influenza) Additional Instructions / Restrictions: DISCHARGE INSTRUCTIONS/PLAN OF CARE: #1. Acute Hypoxia (Noted 88% on RA in the ED upon evaluation) secondary to Acute Influenza A Viral Syndrome complicated by Asthma/COPD Exacerbation: --CXR in the ED w/ with no acute cardiopulmonary findings. --Rapid SARS COVID/influenza/RSV with positive influenza A. --Treated with tamiflu, IV solumedrol steroids and oxygen as well as aerosol treatments. --Please complete the tamiflu regimen and also steroid taper. --Please maintain continuous oxygen supplementation until re-evaluated per your primary care physician and appropriately weaned off. --Please use your duoneb therapy scheduled every 6 hours for the next 10-14 days and then may return to only as needed. --Repeat CXR 07/19/24 without acute findings. --Sputum culture sent 07/19/24 but will take several days to result. Please follow-up these results with your primary care physician. If notable bacterial growth is noted you may require antibiotic therapies but upon discharge you have remained afebrile and clinically improved from the viral illness. #2. Hypokalemia, hypophosphatemia: --During the admission you had electrolyte abnormalities including low phosphorous and potassium which were supplemented. We recommend having repeat levels at follow-up with your primary care physician outpatient at follow-up. #3. Possible Chronic Kidney Disease Stage Unclear type, Possible Type II especially given GFR trending: --Admission BUN/Cr 17/1.26, GFR 43, baseline renal function unknown upon presentation. Initially unclear if possibly type II versus type III however trending with rise in GFR more consistent with type II. 07/20/24 BUN/Cr 25/0.69, GFR 86. --We recommend repeat basic metabolic panel at follow-up with primary care physician given also need to assess potassium level to further address and monitor possible chronic renal disease. Discharge Orders/Prescriptions Prescriptions: New guaifenesin 100 mg/5 mL Liquid 200 mg PO Q4H PRN PRN (Reason: Cough) Qty: 473 0RF oseltamivir 30 mg Capsule 30 mg PO BID Qty: 7 0RF prednisone 10 mg tablet See Taper PO DAILY Qty: 30 0RF Taper: Prednisone Taper 40 mg WITH BREAKFAST for 3 Days and 0 Hour 30 mg WITH BREAKFAST for 3 Days and 0 Hour 20 mg WITH BREAKFAST for 3 Days and 0 Hour 10 mg WITH BREAKFAST for 3 Days and 0 Hour Continued albuterol sulfate 90 mcg/actuation HFA aerosol inhaler 2 puff INHALATION .qid PRN (Reason: wheezing) Patient Comments: inhale 2 puffs by mouth up to four times a day if needed furosemide 20 mg tablet 20 mg PO DAILY PRN (Reason: edema) ezetimibe 10 mg tablet 10 mg PO DAILY nitroglycerin 0.2 mg/hr patch 24 hour transdermal triamterene-hydrochlorothiazid 37.5-25 mg capsule 1 cap PO DAILY rosuvastatin 5 mg tablet 5 mg PO DAILY Changed ipratropium-albuterol 0.5 mg-3 mg(2.5 mg base)/3 mL solution for nebulization 3 ml inhalation Q6H 14 Days Qty: 180 0RF Rx Instructions: Please continue scheduled aerosols for the next 10-14 days and then may return to only as needed. Referrals / Follow Up: Jony Edwards MD [Non-Staff] - (Follow-up withikn 3-5 days to review admission.) James Leach MD [Primary Care Provider] - Disposition Disposition (needs filled in before D/C Order can be placed): Home Health Service
[2024-07-20] MEDS: Nitroglycerin 0.2 MG Patch TD (11:02)
[2024-07-20] MEDS: Cholecalciferol (Vit D3) 125 MCG CAPSULE (5,000 UNITS) PO (11:02)
[2024-07-20] MEDS: Famotidine 20 MG Tablet PO (11:03)
[2024-07-20] MEDS: Ascorbic Acid 500 MG Tablet 1000 MG PO (11:03)
[2024-07-20] MEDS: Enoxaparin 40 MG/0.4 ML Syringe SC (11:04)
[2024-07-20] MEDS: Nystatin Powder 15gm Bottle 1 APPLIC TOPICAL (11:04)
[2024-07-20] MEDS: Ezetimibe 10 MG Tablet PO (11:04)
[2024-07-20] MEDS: Oseltamivir Phosphate 30 MG Capsule PO (11:04)
[2024-07-20] MEDS: Zinc Sulfate 50 mg zinc (220 mg) ORAL capsule PO (11:04)
[2024-07-20] MEDS: 0.9% Saline Lock 10 ML Syringe IV (11:05)
[2024-07-20 13:44] VITALS: O2SAT 90; O2SAT 94
[2024-07-20 14:05] VITALS: BP 146/56; PULSE 58; RESP 16; TEMP 36.6; O2SAT 96
--- NOTE | 2024-07-21 09:25 | CASEMGMT ---
Addendum entered by Petra Buckner 07/21/24 15:25: Per Alia @ [facility], they are able to accept w/SOC slated for next Sunday or Sunday. Call placed to pt's nephew, Jorge, who states he thinks SOC next Sun or Sunday will be okay. BEE HERNANDEZ also placed call to pt and BEE HERNANDEZ spoke w/both pt and Tika, who was with pt at time of call. Both Tika and pt aware [facility] able to accept pt, but not able to do SOC until next Sun or . They both state that is okay to wait until then and they do not wish for BEE HERNANDEZ to find another [facility] agency for earlier SOC date, as pt was pleased w/[facility]. Addendum entered by Petra Buckner 07/21/24 14:23: BEE HERNANDEZ spoke w/Alia @ [facility]. She states referral has been sent to the intake team, but she does not have response yet re: decision on acceptance. She states will try to have an answer by the end of the day and will call this BEE HERNANDEZ back. Addendum entered by Petra Buckner 07/21/24 10:08: Referral packet faxed to [facility]. Original Note: BEE HERNANDEZ NOTE: Call placed to [facility] re: referral. VM left. Awaiting return call. [place] SWAN RN, CM
== END 2024-07-20 14:05 | disposition home health service (06) | DRG 202 ==
LOC: ED 22:12 → MS3 22:35
PROVIDERS: Physician Assistant; Admitting Provider Internal Medicine; Emergency Provider Emergency Medicine; Referring Provider Emergency Medicine; Visit Provider Family Medicine
DX: J45.901 Unspecified asthma with (acute) exacerbation (principal); J44.1 Chronic obstructive pulmonary disease with (acute) exacerbation; J44.0 Chronic obstructive pulmonary disease with (acute) lower respiratory infection; E83.39 Other disorders of phosphorus metabolism; G30.9 Alzheimer's disease, unspecified; I12.9 Hypertensive chronic kidney disease with stage 1 through stage 4 chronic kidney disease, or unspecified chronic kidney disease; Z68.35 Body mass index [BMI] 35.0-35.9, adult; J10.1 Influenza due to other identified influenza virus with other respiratory manifestations; N18.2 Chronic kidney disease, stage 2 (mild); E78.5 Hyperlipidemia, unspecified; E87.6 Hypokalemia; G47.33 Obstructive sleep apnea (adult) (pediatric); M16.12 Unilateral primary osteoarthritis, left hip; F02.A0 Dementia in other diseases classified elsewhere, mild, without behavioral disturbance, psychotic disturbance, mood disturbance, and anxiety; G89.29 Other chronic pain; E66.9 Obesity, unspecified; R09.02 Hypoxemia; R55 Syncope and collapse; Z79.899 Other long term (current) drug therapy; Z86.73 Personal history of transient ischemic attack (TIA), and cerebral infarction without residual deficits
CPT/HCPCS: 36415; 36600; 71046; 73502; 80048; 80053; 82803; 83735; 84100; 84443; 85025; 87070; 87205; 87631; 93005; 93306; 94002; 94640; 94668; 97110; 97162; 97166; 97530; 97535; 97802; 99252; 99285; Q9957; A4216; C8929; G0463; J2405

== ENCOUNTER 2024-07-22 23:38 | Emergency (ER) | payer MEDICARE, SELFPAY ==
[2024-07-22 23:43] VITALS: BP 141/93; PULSE 55; RESP 22; TEMP 37; O2SAT 97; BMI 34.3
[2024-07-22 23:45] VITALS: BP 141/93; PULSE 55; RESP 22; TEMP 37; O2SAT 97
--- NOTE | 2024-07-23 00:35 | RAD_ITS ---
EXAM: XR CHEST, 1 VIEW CLINICAL INDICATION: cough TECHNIQUE: Frontal view of the chest. COMPARISON: July 17, 2024. FINDINGS: LUNGS AND PLEURAL SPACES: Bilateral hilar fullness. No consolidation. No pleural effusion. No pneumothorax. HEART: Unremarkable. No cardiomegaly. MEDIASTINUM: Central airways and mediastinal contour are unremarkable. BONES/JOINTS: Degenerative changes of the acromioclavicular joints and spine. No acute fracture. SOFT TISSUES: Unremarkable. VASCULATURE: Atherosclerotic calcifications of the nonenlarged thoracic arch. RAD/Chest 1 View (Portable) IMPRESSION: No acute cardiopulmonary disease. Electronically Signed: Umair Peres MD at 1:58 EST ,
[2024-07-23 01:39] VITALS: PULSE 51; RESP 19; O2SAT 97
--- NOTE | 2024-07-23 02:42 | EDS_ITS ---
HPI History of Present Illness Chief Complaint: Shortness of Breath Informant: patient and family Narrative Narrative: Patient is an 83-year-old female with history of Alzheimer's dementia COPD and asthma who wears 2 L of nasal cannula oxygen 12/02. She was recently admitted to the hospital secondary to shortness of breath and was found to have influenza A. Family states that she is currently on Tamiflu and breathing treatments but continues to complain of shortness of breath. They state they have concerned she may have developed pneumonia and therefore brought her back in for evaluation [facility] Medical History Alzheimer dementia Osteoporosis Non-smoker BiPAP (biphasic positive airway pressure) dependence COPD (chronic obstructive pulmonary disease) Asthma TIA (transient ischemic attack) Home Medications ?Medication ?Instructions ?Recorded ?Last Taken ?Type albuterol sulfate 90 mcg/actuation 2 puff inhalation .qid PRN wheezing 07/17/24 Unknown History aerosol inhaler ezetimibe 10 mg tablet 10 mg PO DAILY 07/17/24 Unknown History furosemide 20 mg tablet 20 mg PO DAILY PRN edema 07/17/24 Unknown History nitroglycerin 0.2 mg/hr patch transdermal 07/17/24 Unknown History transdermal 24 hour patch rosuvastatin 5 mg tablet 5 mg PO DAILY 07/17/24 Unknown History triamterene 37.5 1 cap PO DAILY 07/17/24 Unknown History mg-hydrochlorothiazide 25 mg capsule guaifenesin 100 mg/5 mL oral liquid 200 mg (10 mL) PO Q4H PRN PRN 07/19/24 Unknown Rx Cough #473 mL ipratropium 0.5 mg-albuterol 3 mg 3 ml inhalation Q6H Influenza, 07/19/24 Unknown Rx (2.5 mg base)/3 mL nebulization COPD/Asthma 14 days #180 mL soln prednisone 10 mg tablet See Taper PO DAILY Influenza, 07/19/24 Unknown Rx Hypoxia, COPD/Asthma #30 tabs Allergy/AdvReac Type Severity Reaction Status Date / Time aspirin Allergy Unknown PT UNSURE Verified 07/17/24 19:32 OF REACTION cefaclor Allergy PT UNSURE Verified 07/17/24 19:32 OF REACTION chlorzoxazone Allergy PT UNSURE Verified 07/17/24 19:32 OF REACTION codeine Allergy PT UNSURE Verified 07/17/24 19:32 OF REACTION erythromycin base Allergy PT UNSURE Verified 07/17/24 19:32 OF REACTION guanfacine Allergy PT UNSURE Verified 07/17/24 19:32 OF REACTION naproxen Allergy PT UNSURE Verified 07/17/24 19:32 OF REACTION orphenadrine Allergy PT UNSURE Verified 07/17/24 19:32 OF REACTION oxytetracycline Allergy PT UNSURE Verified 07/17/24 19:32 OF REACTION Penicillins Allergy PT UNSURE Verified 07/17/24 19:32 OF REACTION piroxicam Allergy PT UNSURE Verified 07/17/24 19:32 OF REACTION Sulfa (Sulfonamide Allergy PT UNSURE Verified 07/17/24 19:32 Antibiotics) OF REACTION testosterone Allergy PT UNSURE Verified 07/17/24 19:32 OF REACTION Social History Smoking Status: Never smoker ROS ROS ED ROS Narrative Please note review of systems may be unreliable secondary to patient's history of dementia Constitutional Constitutional ED: Denies chills or fever(s) Eyes Eyes: Denies change in vision ENT ENT ED: Reports rhinorrhea and sore throat Cardiovascular Cardiovascular: Denies chest pain Respiratory/Chest Respiratory/Chest: Reports cough and dyspnea Gastrointestinal Gastrointestinal: Denies abdominal pain, diarrhea, nausea or vomiting Genitourinary Genitourinary ED: Denies dysuria Musculoskeletal Musculoskeletal: Reports myalgias Integumentary Denies rash Neurologic Neurologic: Reports weakness; Denies headache(s) Hematologic/Lymphatic Hematologic/Lymphatic: Denies easy bleeding or easy bruising Allergic/Immunologic Allergic/Immunologic ED: Denies mouth swelling or tongue swelling EXAM Physical Exam Const Vital Signs: 07/22/24 23:39 07/22/24 23:43 07/22/24 23:45 Temperature 98.6 F 98.6 F Temperature Source Oral Oral Pulse Rate 55 L 55 L Respiratory Rate 22 H 22 H Respiratory Effort Normal Non-Labored Respiratory Depth Normal Respiratory Pattern Normal Blood Pressure 141/93 H 141/93 H Blood Pressure Mean 109 109 Pulse Ox 97 97 Oxygen Delivery Method Nasal Cannula Nasal Cannula Nasal Cannula Oxygen Flow Rate (L/min) 2 2 07/23/24 01:39 07/23/24 02:58 Temperature 99 F Temperature Source Pulse Rate 51 L 87 Respiratory Rate 19 H 18 Respiratory Effort Respiratory Depth Respiratory Pattern Blood Pressure 145/57 H Blood Pressure Mean 86 Pulse Ox 97 95 Oxygen Delivery Method Nasal Cannula Oxygen Flow Rate (L/min) Positive well nourished, well developed and obese General Appearance ED: well developed Nutritional Appearance: obese HEENT Reports moist mucous membranes HEENT Narrative: No tongue or lip swelling no oral lesions no airway edema or compromise. There is cobblestoning noted in the posterior pharynx consistent with sinus drainage however no secondary findings to suggest infection Eyes PERRL and EOMs intact bilaterally General Eye ED: Negative for pale conjunctiva or scleral icterus Neck supple and no JVD Neck Narrative: No nuchal rigidity or meningeal signs noted No crepitance or subcutaneous emphysema palpated Chest Wall palpation of chest normal Resp normal respiratory effort Resp Narrative: Breath sounds are diminished throughout with diffuse inspiratory and expiratory wheezing consistent with history of COPD and asthma However no nasal flaring retractions or accessory muscle use. No stridor or grunting noted Cardio regular rate and regular rhythm Extremity normal to inspection Neuro CN's II-XII intact bilaterally and no sensory deficits noted Neuro Narrative: Patient is at her baseline mental status without focal neurologic deficit Sensorium / Orientation: alert Psych Psych Narrative: Patient has a flat affect Skin no rashes or lesions noted MDM MDM MDM Narrative Medical decision making narrative: Patient arrived to the ER afebrile and satting 95 to 98% on her normal 2 L. Her work of breathing was minimal in nature. She has known influenza A and was recently worked up in the hospital. Family had concern for pneumonia and secondary to this I did check a chest x-ray to look for pneumonia pneumothorax or pleural effusion. X-ray was normal. This correlates with the fact the patient is stable vitals and her oxygen is stable on her normal 2 L. Therefore as the patient is not in respiratory distress she is not requiring oxygen rocha pplementation arrive her baseline or further treatment such as noninvasive therapy with BiPAP I do not feel it is worthwhile to admit her to the hospital once again. I discussed with patient and family that we could discuss potential admission if her influenza causing COPD exacerbation is making her too weak to take care of herself and she will consider custodial placement. Family and patient do not want this and therefore his vitals are stable she is otherwise safe for discharge History & Record Review Discussion w/independent historian: Patient and Family Radiography Diagnostic Testing: Clinical Impression(s) from Imaging Studies Chest X-Ray 07/23/24 00:35 IMPRESSION: No acute cardiopulmonary disease. Electronically Signed: Umair Peres MD at 1:58 EST , Chest x-ray as interpreted by the emergency medicine physician reveals no acute infiltrate pneumothorax or pleural effusion Discharge Plan Triage Chief Complaint: Shortness of Breath ED Provider: Umair Cates Dx/Rx/DC Orders Clinical Impression: Influenza A, Dementia, COPD (chronic obstructive pulmonary disease), Dyspnea Instructions: ED COPD Flare, ED Influenza (Adult) Prescriptions: No Action albuterol sulfate 90 mcg/actuation HFA aerosol inhaler 2 puff INHALATION .qid PRN (Reason: wheezing) Patient Comments: inhale 2 puffs by mouth up to four times a day if needed furosemide 20 mg tablet 20 mg PO DAILY PRN (Reason: edema) ezetimibe 10 mg tablet 10 mg PO DAILY nitroglycerin 0.2 mg/hr patch 24 hour transdermal triamterene-hydrochlorothiazid 37.5-25 mg capsule 1 cap PO DAILY rosuvastatin 5 mg tablet 5 mg PO DAILY guaifenesin 100 mg/5 mL Liquid 200 mg PO Q4H PRN PRN (Reason: Cough) Qty: 473 0RF prednisone 10 mg tablet See Taper PO DAILY Qty: 30 0RF Taper: Prednisone Taper 40 mg WITH BREAKFAST for 3 Days and 0 Hour 30 mg WITH BREAKFAST for 3 Days and 0 Hour 20 mg WITH BREAKFAST for 3 Days and 0 Hour 10 mg WITH BREAKFAST for 3 Days and 0 Hour ipratropium-albuterol 0.5 mg-3 mg(2.5 mg base)/3 mL solution for nebulization 3 ml inhalation Q6H 14 Days Qty: 180 0RF Rx Instructions: Please continue scheduled aerosols for the next 10-14 days and then may return to only as needed. Primary Care Provider: James Leach Referrals: James Leach DO [Primary Care Provider] - Activity Restrictions/Additional Instructions: Your chest x-ray revealed no pneumonia fluid buildup or hole in your lung. Despite your shortness of breath sensation your oxygen level is holding stable/normal on your normal 2 L. This shortness of breath sensation is secondary to your influenza A worsening your COPD. Influenza A will last on average 5 to 10 days. Continue your home medications use your oxygen and BiPAP/CPAP at night as directed and return to the ER should you have any further concerns Print Language: Slovenian Disposition Disposition: Home, Self Care Discharge Date/Time: 07/23/24 02:58
[2024-07-23 02:58] VITALS: BP 145/57; PULSE 87; RESP 18; TEMP 37.2; O2SAT 95
== END 2024-07-23 02:58 | disposition home or self-care (01) ==
PROVIDERS: Emergency Provider Emergency Medicine; Visit Provider Emergency Medicine
DX: J10.1 Influenza due to other identified influenza virus with other respiratory manifestations (principal); G30.9 Alzheimer's disease, unspecified; F02.80 Dementia in other diseases classified elsewhere, unspecified severity, without behavioral disturbance, psychotic disturbance, mood disturbance, and anxiety; J44.0 Chronic obstructive pulmonary disease with (acute) lower respiratory infection; J44.1 Chronic obstructive pulmonary disease with (acute) exacerbation; E66.9 Obesity, unspecified; Z68.34 Body mass index [BMI] 34.0-34.9, adult; Z99.81 Dependence on supplemental oxygen; Z79.52 Long term (current) use of systemic steroids
CPT/HCPCS: 71045; 99284

== ENCOUNTER 2024-08-12 13:58 | Inpatient (IN) | payer MEDICARE, SELFPAY ==
[2024-08-12] VITALS (15 sets, daily range): BP systolic 110–160; BP diastolic 55–87; PULSE 86–103; RESP 16–30; TEMP 36.5–36.9; O2SAT 88–99; BMI 34.9; BMI 36.5
--- NOTE | 2024-08-12 15:12 | EKG12_ITS ---
Test Reason : CP Blood Pressure : */* mmHG Vent. Rate : 94 BPM Atrial Rate : 94 BPM P-R Int : 162 ms QRS Dur : 104 ms QT Int : 368 ms P-R-T Axes : 29 -30 56 degrees QTcB Int : 460 ms Sinus rhythm with marked sinus arrhythmia Left axis deviation Moderate voltage criteria for LVH, may be normal variant ( R in aVL , Gino product ) Septal infarct , age undetermined Abnormal ECG Confirmed by GRAYSON LOWE, ÓSCAR ([id number]), technical writer and editor KEITH DURAN ([id number]) on 08/19/2024 6:52:34 AM Referred By: Confirmed By: ÓSCAR GALICIA MD
--- NOTE | 2024-08-12 15:13 | EDS_ITS ---
HPI History of Present Illness Chief Complaint: Shortness of Breath Narrative Narrative: Patient is a 83-year-old female with past medical history of SHIRA, dementia, COPD, TIA who presents to the emergency department chief complaint of cough and shortness of breath. According to the caregiver bedside who provided most of history of present illness secondary to the patient's underlying dementia states that for the past few days she has had a cough. States that the patient herself called EMS. Per EMS when they arrived they were having difficulty getting a baseline oxygen saturation therefore they placed her on couple liters nasal cannula and brought her here for further evaluation management. They deny any recent sick contacts recently. [facility] Medical History (Updated 08/12/24 @ 22:[address] Tomer Lopez, DO) HLD (hyperlipidemia) HTN (hypertension) CKD (chronic kidney disease), stage II Chronic left hip pain SHIRA (obstructive sleep apnea) Obesity (BMI 30.0-34.9) Alzheimer dementia Osteoporosis Non-smoker BiPAP (biphasic positive airway pressure) dependence COPD (chronic obstructive pulmonary disease) Asthma TIA (transient ischemic attack) Home Medications ?Medication ?Instructions ?Recorded ?Last Taken ?Type albuterol sulfate 90 mcg/actuation 2 puff inhalation .qid PRN wheezing 07/17/24 Unknown History aerosol inhaler ezetimibe 10 mg tablet 10 mg PO DAILY 07/17/24 Unknown History furosemide 20 mg tablet 20 mg PO DAILY PRN edema 07/17/24 Unknown History nitroglycerin 0.2 mg/hr patch transdermal 07/17/24 Unknown History transdermal 24 hour patch rosuvastatin 5 mg tablet 5 mg PO DAILY 07/17/24 Unknown History triamterene 37.5 1 cap PO DAILY 07/17/24 Unknown History mg-hydrochlorothiazide 25 mg capsule guaifenesin 100 mg/5 mL oral liquid 200 mg (10 mL) PO Q4H PRN PRN 07/19/24 Unknown Rx Cough #473 mL ipratropium 0.5 mg-albuterol 3 mg 3 ml inhalation Q6H Influenza, 07/19/24 Unknown Rx (2.5 mg base)/3 mL nebulization COPD/Asthma 14 days #180 mL soln prednisone 10 mg tablet See Taper PO DAILY Influenza, 07/19/24 Unknown Rx Hypoxia, COPD/Asthma #30 tabs Allergy/AdvReac Type Severity Reaction Status Date / Time aspirin Allergy Unknown PT UNSURE Verified 07/17/24 19:32 OF REACTION cefaclor Allergy PT UNSURE Verified 07/17/24 19:32 OF REACTION chlorzoxazone Allergy PT UNSURE Verified 07/17/24 19:32 OF REACTION codeine Allergy PT UNSURE Verified 07/17/24 19:32 OF REACTION erythromycin base Allergy PT UNSURE Verified 07/17/24 19:32 OF REACTION guanfacine Allergy PT UNSURE Verified 07/17/24 19:32 OF REACTION naproxen Allergy PT UNSURE Verified 07/17/24 19:32 OF REACTION orphenadrine Allergy PT UNSURE Verified 07/17/24 19:32 OF REACTION oxytetracycline Allergy PT UNSURE Verified 07/17/24 19:32 OF REACTION Penicillins Allergy PT UNSURE Verified 07/17/24 19:32 OF REACTION piroxicam Allergy PT UNSURE Verified 07/17/24 19:32 OF REACTION Sulfa (Sulfonamide Allergy PT UNSURE Verified 07/17/24 19:32 Antibiotics) OF REACTION testosterone Allergy PT UNSURE Verified 07/17/24 19:32 OF REACTION Social History Smoking Status: Never smoker ROS ROS ED ROS Narrative Constitutional: Denies any fevers, chills, headaches, lightness, dizziness Eyes: Denies change in vision double vision blurry vision Cardiovascular: Denies chest pain or palpitations Respiratory: Complains of coughing and shortness of breath as noted above Abdomen: Denies abdominal pain nausea vomit diarrhea : Denies any urinary symptoms Neurological: Denies any numbness, weakness, tingling Musculoskeletal: Denies back pain Skin: Denies any rashes or lesions EXAM Physical Exam Narrative Exam Narrative: General: Patient was lying in bed rest comfortably did not appear to be in acute distress Head: Atraumatic, normocephalic Eyes: PERRL bilaterally, EOMI bilaterally, no conjunctival injection noted Neck: Soft, supple, trachea midline Cardiovascular: Regular rate and rhythm no murmurs gallops rubs noted Respiratory: Diminished breath sounds bilaterally at the bases no rhonchi rales or wheezing noted Abdomen: Soft, nondistended, nontender to palpation, bowel sounds present x 4 Extremities: +4/5 strength noted in the bilateral upper and lower extremities, radial pulses +2/4 in the bilateral extremities Neurological: Patient following commands knew that she was at [facility] is at her baseline according to family at bedside with her dementia Skin: Warm, dry, intact no rashes or lesions noted Const Vital Signs: 08/12/24 14:00 08/12/24 14:05 08/12/24 14:07 Temperature 98.2 F 98.2 F Temperature Source Oral Oral Pulse Rate 98 94 Respiratory Rate 22 H 22 H Respiratory Effort Short of Breath Respiratory Depth Shallow Respiratory Pattern Tachypnea Blood Pressure 135/55 H 135/55 H Blood Pressure Mean 81 81 Pulse Ox 92 93 Oxygen Delivery Method Room Air Room Air Room Air 08/12/24 15:12 08/12/24 16:00 08/12/24 17:00 Temperature 97.9 F Temperature Source Oral Pulse Rate 100 102 H Respiratory Rate 18 16 Respiratory Effort Respiratory Depth Respiratory Pattern Blood Pressure 151/81 H 160/87 H Blood Pressure Mean 104 111 Pulse Ox 92 92 98 Oxygen Delivery Method Room Air Room Air Room Air 08/12/24 18:00 08/12/24 19:00 08/12/24 19:31 Temperature 97.7 F L 97.9 F Temperature Source Oral Oral Pulse Rate 97 94 103 H Respiratory Rate 16 18 30 H Respiratory Effort Respiratory Depth Respiratory Pattern Blood Pressure 134/74 H 110/68 123/58 H Blood Pressure Mean 94 82 79 Pulse Ox 92 90 94 Oxygen Delivery Method Room Air Room Air Room Air 08/12/24 20:00 08/12/24 20:40 08/12/24 21:00 Temperature 97.9 F 98.1 F Temperature Source Oral Oral Pulse Rate 98 86 Respiratory Rate 20 H 26 H Respiratory Effort Respiratory Depth Respiratory Pattern Blood Pressure 110/68 123/64 H Blood Pressure Mean 82 83 Pulse Ox 90 88 90 Oxygen Delivery Method Room Air Room Air Room Air MDM MDM MDM Narrative Medical decision making narrative: Patient is a 83-year-old female who presented to the emergency department with chief complaint of cough and shortness of breath. On the differential diagnose includes but not limited to ACS, pneumonia, upper respiratory infection secondary viral etiology, pneumothorax. Once workup is obtained reviewed she will be reevaluated. Patient be given 30 cc/kg bolus based on ideal body weight. Patient CBC reviewed showed no evidence leukocytosis white blood count normal 8.2, he was 14.2, plate count normal at 270. Patient INR normal at 1, PT of 13.3. Patient sodium was 137, patient was noted to be hypokalemic with a potassium of 2.9 she was given 40 mill equivalents orally followed by 20 mill equivalents intravenously magnesium level will be checked. Patient's creatinine was normal at 0.98. Patient's AST and ALT are 2024 respectively. Patient's proBNP was 36.5, troponin normal at 29. Patient's EKG was reviewed and independently interpreted by myself showed sinus rhythm with a rate of 94 bpm with sinus arrhythmia noted. Patient's magnesium level pending. Patient's urinalysis reviewed showed positive nitrites 100 leukocyte esterase 5-10 white cells with 2+ bacteria she received antibiotics. Patient's chest x-ray reviewed and independently interpreted by myself as well as reviewed by radiology showed showed borderline cardiomegaly focal infiltrate in the right right lower lobe. Patient was given ceftriaxone and azithromycin at 1602. Reperfusion assessment was performed at 1849 and the patient remained normotensive no indication for vasopressors. Will discuss case with hospitalist for admission for acute hypoxic respiratory failure in the setting of pneumonia. Patient did become hypoxic in the emergency department and had significant generalized weakness Discussed case with hospitalist Dr. Jon who accept patient for admission. Patient notified she is agreed this plan all question concerns answered. Lab Data Labs: Laboratory Results - last 24 hr 08/12/24 08/12/24 08/12/24 10:43 15:12 15:19 WBC 8.2 RBC 5.09 Hgb 14.2 Hct 42.5 MCV 83.5 MCH 27.9 MCHC 33.4 RDW Std Deviation 40.3 RDW Coeff of Jaz 13.2 Plt Count 270 MPV 10.4 Immature Gran % (Auto) 0.500 Neut % (Auto) 70.9 H Lymph % (Auto) 10.1 L [place] % (Auto) 11.7 H Eos % (Auto) 6.1 H Baso % (Auto) 0.7 Absolute Neuts (auto) 5.9 Absolute Lymphs (auto) 0.83 Nucleated RBC % 0 PT 13.3 INR 1.0 APTT 28.2 Sodium 137 Potassium 2.9 L Chloride 96 L Carbon Dioxide 30.0 Anion Gap 11 BUN 22 H Creatinine 0.98 Est GFR (MDRD) Af Amer 70 Est GFR (MDRD) Non-Af 58 L BUN/Creatinine Ratio 22.5 H Glucose 185 H Lactic Acid 1.3 Calcium 10.5 H Magnesium Total Bilirubin 0.70 AST 20 ALT 25 Alkaline Phosphatase 118 H Troponin I High Sens 29 B-Natriuretic Peptide 36.5 Total Protein 6.8 Albumin 3.0 L Globulin 3.8 Albumin/Globulin Ratio 0.8 L Urine Color Urine Clarity Urine pH Ur Specific [employer] Urine Protein Urine Glucose (UA) Urine Ketones Urine Occult Blood Urine Nitrite Urine Bilirubin Urine Urobilinogen Ur Leukocyte Esterase Urine RBC Urine WBC Ur Squamous Epith Cells Ur Transition Epith Cell Ur Renal Epithelial Cell Urine Bacteria Urine Mucus 08/12/24 08/12/24 16:14 16:53 WBC RBC Hgb Hct MCV MCH MCHC RDW Std Deviation RDW Coeff of Jaz Plt Count MPV Immature Gran % (Auto) Neut % (Auto) Lymph % (Auto) [place] % (Auto) Eos % (Auto) Baso % (Auto) Absolute Neuts (auto) Absolute Lymphs (auto) Nucleated RBC % PT INR APTT Sodium Potassium Chloride Carbon Dioxide Anion Gap BUN Creatinine Est GFR (MDRD) Af Amer Est GFR (MDRD) Non-Af BUN/Creatinine Ratio Glucose Lactic Acid Calcium Magnesium 2.2 Total Bilirubin AST ALT Alkaline Phosphatase Troponin I High Sens B-Natriuretic Peptide Total Protein Albumin Globulin Albumin/Globulin Ratio Urine Color Yellow Urine Clarity Clear Urine pH 6.0 Ur Specific [employer] 1.020 Urine Protein 15 H Urine Glucose (UA) Normal Urine Ketones Negative Urine Occult Blood 25 H Urine Nitrite Positive H Urine Bilirubin Negative Urine Urobilinogen 1 H Ur Leukocyte Esterase 100 H Urine RBC 0-5 SEEN Urine WBC 5-10 SEEN Ur Squamous Epith Cells 5-10 SEEN Ur Transition Epith Cell 0-5 SEEN Ur Renal Epithelial Cell 0-5 SEEN Urine Bacteria 2+ Urine Mucus 1+ Radiography Diagnostic Testing: Clinical Impression(s) from Imaging Studies Chest X-Ray 08/12/24 15:20 IMPRESSION: Borderline cardiomegaly. Questionable focal infiltrate in the right lower lobe. Electronically Signed: Elio Cole MD at 15:36 EST , Discharge Plan Triage Chief Complaint: Shortness of Breath ED Provider: Tomer Lopez Dx/Rx/DC Orders Clinical Impression: Acute hypoxic respiratory failure, Pneumonia, Dementia, Generalized weakness Primary Care Provider: James Leach Disposition Disposition: Acute Care Hospital [facility]
--- NOTE | 2024-08-12 15:20 | RAD_ITS ---
STUDY: X-RAY CHEST REASON FOR EXAM: Female, 83 years old. sob, cough TECHNIQUE: AP and lateral views of the chest. COMPARISON: Comparison is made with prior study dated July 23, 2024 and July 19, 2024. FINDINGS: EKG electrodes are seen. Questionable focal infiltrate in the right lower lobe. There is no demonstrated pleural abnormality. There is borderline cardiomegaly. Normal mediastinum and jon. Normal visualized pulmonary arteries. There is atherosclerotic calcification of the aortic arch with tortuosity. There are diffuse degenerative changes of the visualized thoracic spine. Normal visualized ribs, clavicles, and shoulders. There is no demonstrated abnormality of the visualized soft tissue structures of the upper abdomen. RAD/Chest PA and Lateral IMPRESSION: Borderline cardiomegaly. Questionable focal infiltrate in the right lower lobe. Electronically Signed: Elio Cole MD at 15:36 EST ,
[2024-08-12 15:26] LABS: Absolute Lymphocyte Count 0.83 X10^3/uL (0.83-4.51); Absolute Neutrophil Count 5.9 X10^3/uL (2.0-7.7); Basophil# 0.06 X10^3/uL; Basophil% 0.7 % (0-1); Eosinophils% 6.1 % (0-5); Hematocrit 42.5 % (37-47); Hemoglobin 14.2 g/dL (12.0-15.0); Lymphocyte # 0.83 X10^3/ul (0.83-4.51); Lymphocyte % 10.1 % (19-41); Mean Corp Hgb Conc 33.4 g/dL (32-36); Mean Corpuscular Hgb 27.9 pg (27.0-32.0); Mean Corpuscular Volume 83.5 fL (81-99); Mean Platelet Vol. 10.4 fl (6.2-12.0); Monocyte# 0.96 X10^3/uL; Monocyte% 11.7 % (0-10); NRBC Flagged by Analyzer 0 % (0-5); Neutrophil # 5.85 X10^3/uL (2.7-7.7); Neutrophil % 70.9 % (47-70); Platelet Count 270 K/mm3 (150-450); RBC Distribution Width CV 13.2 % (11.6-14.6); RBC Distribution Width SD 40.3 fl (35.1-43.9); Red Blood Count 5.09 M/mm3 (4.2-5.4); White Blood Count 8.2 K/mm3 (4.4-11.0)
[2024-08-12 15:36] LABS: Prothrombin Time (Protime)PT. 13.3 SECONDS (11.7-14.9)
[2024-08-12 15:37] LABS: Partial Thromboplast Time 28.2 Seconds (24.1-36.2)
[2024-08-12 15:38] LABS: POSITIVE COUNT NO; POSITIVE DIFFERENTIAL NO; POSITIVE MORPHOLOGY NO
[2024-08-12 15:52] LABS: ALB/GLOB Ratio 0.8 RATIO (0.9-2.4); AST(SGOT) 20 U/L (15-37); Alanine Aminotransfer ALT/SGPT 25 U/L (13-56); Alkaline Phosphatase 118 U/L (45-117); Anion Gap 11 (5-15); BUN 22 mg/dL (7-18); BUN/Creat Ratio 22.5 RATIO (10-20); Calcium,Total 10.5 mg/dL (8.5-10.1); Chloride 96 mmol/L (98-107); Creatinine, Serum 0.98 mg/dL (0.55-1.02); EST Glomerular Filtration Rate 58 mL/min (>60); Est Glom Filt Rate - Afr Amer 70 mL/min (>60); Globulin 3.8 g/dL (2.2-4.2); Glucose 185 mg/dL (74-106); Potassium 2.9 mmol/L (3.5-5.1); Protein, Total 6.8 g/dL (6.4-8.2); Sodium Level 137 mmol/L (136-145); Troponin-I HS 29 pg/mL (3.0-54.0)
[2024-08-12 16:09] LABS: BNP,B-Type NATRIURETIC PEPTIDE 36.5 pg/mL (0-100)
[2024-08-12 16:25] LABS: Lactic Acid 1.3 mmol/L (0.4-1.9)
[2024-08-12] MEDS: 0.9% Normal Saline (1000mL) 1,000 ML 999 ML IV (16:48)
[2024-08-12] MEDS: Ceftriaxone 1 GM/50 ML BAG IV (16:48)
[2024-08-12] MEDS: Potassium Chloride Oral Soln 20 MEQ/15 ML UDC 40 MEQ PO (16:48)
[2024-08-12 16:58] LABS: Color, Urine Yellow (Yellow); Glucose, Dipstick Normal (Normal); Ketone-Dipstick Negative (Negative); Leukocyte Esterase-Dipstick 100 /ul (Negative); Nitrite-Dipstick Positive (Negative); Occult Blood-Urine 25 /ul (Negative); Protein-Dipstick 15 mg/dl (Negative); Urine Bilirubin Dipstick Negative (Negative); Urine Clarity Clear (Clear); Urine Urobilinogen 1 mg/dl (Normal)
[2024-08-12 17:09] LABS: Bacteria 2+ /hpf (None Seen); Mucous, Urine 1+ /hpf (<or=2+); Red Blood Cells-Urine 0-5 SEEN /hpf (0-5); Renal Epithelial Cells 0-5 SEEN /hpf (0-5); Squamous Epithelial Cells - UA 5-10 SEEN /hpf (5-10); Transitional Epithelial - Ur 0-5 SEEN /hpf (0-5); White Blood Cells 5-10 SEEN /hpf (0-5)
[2024-08-12] MEDS: Azithromycin 500 MG in 0.9% Normal Saline (250mL Bag) 250 ML 255 MG IV (18:11)
[2024-08-12] MEDS: Potassium Chloride 10mEq/100mL 10 MEQ/100 ML IV.SOLN. 100 MEQ IV BOLUS ×2 (18:19→19:30)
[2024-08-12 21:17] LABS: Magnesium 2.2 mg/dL (1.6-2.6)
--- NOTE | 2024-08-12 21:34 | HP.PCM.HOS_ITS ---
HPI - General General Date of Admission: 08/12/24 Date of Service: 08/12/24 Chief Complaint: Cough, dyspnea. HPI Narrative The patient is an 83 y/o F w/ PMHx: Obesity, SHIRA on BIPAP, COPD/Asthma, hx TIA, Alzheimer's dementia with unclear extent and unclear behavioral disturbance history, HTN, HLD, CKD stage II per GFR trending, Chronic L hip pain/OA who presents to the [facility] ED on 08/12/24 with history of persistent cough and dyspnea with caregiver initially with ED staff upon arrival at patient bedside noting that the symptoms have been ongoing for the last couple days prompting eventual ED evaluation to be cautious. Caregiver denied to ED staff any recent ill contacts in the home. Unfortunately upon hospitalist evaluation caregiver had left and patient does have underlying significant dementia unable to recall any of this history. Workup in the ED included T98.2, heart rate 98, BP 135/35, respiratory rate 22, 92% on room air unfortunately eventually desaturating down to 88% on room air, most recent repeat vital signs otherwise T97.9 Orally, heart rate 98, BP 110/68, respiratory rate 20, CBC with WC 8.2, hemoglobin 14.2, platelet 270 without marked shift, unremarkable coags, CMP with potassium 2.9, chloride 96, BUN/creatinine 22/0.98, GFR 58, glucose 185, lactic acid 1.3, calcium 10.5, alk phos 118 otherwise hepatic profile not marked appearing, troponin 29, BNP 36.5, urinalysis with elevated specific gravity 1.020, protein 15, occult blood 25, positive nitrite, leukocyte esterase 100 with urine WBCs 5- 10 with 2+ urine bacteria, rapid SARS COVID/influenza/RSV negative, blood culture x 2 pending per ED, chest x-ray with borderline cardiomegaly with questionable focal infiltrate right lower lobe. in the ED patient ministered 1 L normal saline, potassium 40 mill equivalent p.o. x 1, 500 mg IV azithromycin and 1 g IV Rocephin. [facility] Medical History (Updated 08/12/24 @ 22:[address] Jennifer Jon MD) Hypoxia HLD (hyperlipidemia) HTN (hypertension) CKD (chronic kidney disease), stage II Chronic left hip pain SHIRA (obstructive sleep apnea) Obesity (BMI 30.0-34.9) Alzheimer dementia Osteoporosis Non-smoker BiPAP (biphasic positive airway pressure) dependence COPD (chronic obstructive pulmonary disease) Asthma TIA (transient ischemic attack) Home Medications ?Medication ?Instructions ?Recorded ?Last Taken ?Type albuterol sulfate 90 mcg/actuation 2 puff inhalation .qid PRN wheezing 07/17/24 Unknown History aerosol inhaler ezetimibe 10 mg tablet 10 mg PO DAILY cholesterol 07/17/24 Unknown History furosemide 20 mg tablet 20 mg PO DAILY PRN edema 07/17/24 Unknown History nitroglycerin 0.2 mg/hr 1 patch transdermal DAILY heart 07/17/24 Unknown History transdermal 24 hour patch rosuvastatin 5 mg tablet 5 mg PO DAILY cholesterol 07/17/24 Unknown History triamterene 37.5 1 cap PO DAILY diuretic 07/17/24 Unknown History mg-hydrochlorothiazide 25 mg capsule guaifenesin 100 mg/5 mL oral liquid 200 mg (10 mL) PO Q4H PRN PRN 07/19/24 Unknown Rx Cough #473 mL ipratropium 0.5 mg-albuterol 3 mg 3 ml inhalation Q6H Influenza, 07/19/24 Unknown Rx (2.5 mg base)/3 mL nebulization COPD/Asthma 14 days #180 mL soln aspirin 81 mg capsule 81 mg PO DAILY heart 08/12/24 Unknown History donepezil 5 mg tablet 10 mg PO QHS dementia 08/12/24 Unknown History Allergy/AdvReac Type Severity Reaction Status Date / Time aspirin Allergy Unknown PT UNSURE Verified 07/17/24 19:32 OF REACTION cefaclor Allergy PT UNSURE Verified 07/17/24 19:32 OF REACTION chlorzoxazone Allergy PT UNSURE Verified 07/17/24 19:32 OF REACTION codeine Allergy PT UNSURE Verified 07/17/24 19:32 OF REACTION erythromycin base Allergy PT UNSURE Verified 07/17/24 19:32 OF REACTION guanfacine Allergy PT UNSURE Verified 07/17/24 19:32 OF REACTION naproxen Allergy PT UNSURE Verified 07/17/24 19:32 OF REACTION orphenadrine Allergy PT UNSURE Verified 07/17/24 19:32 OF REACTION oxytetracycline Allergy PT UNSURE Verified 07/17/24 19:32 OF REACTION Penicillins Allergy PT UNSURE Verified 07/17/24 19:32 OF REACTION piroxicam Allergy PT UNSURE Verified 07/17/24 19:32 OF REACTION Sulfa (Sulfonamide Allergy PT UNSURE Verified 07/17/24 19:32 Antibiotics) OF REACTION testosterone Allergy PT UNSURE Verified 07/17/24 19:32 OF REACTION unable to obtain unable to obtain Social History household members: 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 Smoking Status: Never smoker alcohol intake: never substance use type: does not use ROS Review of Systems ROS Unobtainable: due to mental condition Vital Signs Vital Signs Vital Signs: 08/12/24 14:00 08/12/24 14:05 08/12/24 14:07 Temperature 98.2 F 98.2 F Temperature Source Oral Oral Pulse Rate 98 94 Respiratory Rate 22 H 22 H Respiratory Effort Short of Breath Respiratory Depth Shallow Respiratory Pattern Tachypnea Blood Pressure 135/55 H 135/55 H Blood Pressure Mean 81 81 Pulse Ox 92 93 Oxygen Delivery Method Room Air Room Air Room Air 08/12/24 15:12 08/12/24 16:00 08/12/24 17:00 Temperature 97.9 F Temperature Source Oral Pulse Rate 100 102 H Respiratory Rate 18 16 Respiratory Effort Respiratory Depth Respiratory Pattern Blood Pressure 151/81 H 160/87 H Blood Pressure Mean 104 111 Pulse Ox 92 92 98 Oxygen Delivery Method Room Air Room Air Room Air 08/12/24 18:00 08/12/24 19:00 08/12/24 19:31 Temperature 97.7 F L 97.9 F Temperature Source Oral Oral Pulse Rate 97 94 103 H Respiratory Rate 16 18 30 H Respiratory Effort Respiratory Depth Respiratory Pattern Blood Pressure 134/74 H 110/68 123/58 H Blood Pressure Mean 94 82 79 Pulse Ox 92 90 94 Oxygen Delivery Method Room Air Room Air Room Air 08/12/24 20:00 08/12/24 20:40 Temperature 97.9 F Temperature Source Oral Pulse Rate 98 Respiratory Rate 20 H Respiratory Effort Respiratory Depth Respiratory Pattern Blood Pressure 110/68 Blood Pressure Mean 82 Pulse Ox 90 88 Oxygen Delivery Method Room Air Room Air Weight Weight: 161 lb 9.6 oz Body Mass Index (BMI) 34.9 Physical Exam Narrative Physical Examination: General: Awake, alert, oriented x 3 and cooperative, seated upright in the ED bed, fatigued, tearful during ED discussions secondary to confusion. Skin: Normal color, normal turgor, no icterus, no cyanosis except occasional stage ecchymoses, abrasions. HEENT: AT/NC, EOMI, PERRLA, mildly dry MM, no carotid bruits or marked JVD noted. Lungs: Diminished, greater bases, mildly increased respiratory rate but no distress, no current wheezing, no rhonchi or rales. Heart: Regular rate and rhythm; no gallop, rub audible. Abdomen: Soft, obese, NTTP, ND, normal BS, no appreciated HSM. Extremities: No cyanosis, no clubbing, no marked peripheral edema. Neurological: Patient awake, alert, oriented as noted, cognitive function decreased baseline with underlying dementia, currently suspect likely based intact; pupils equally reactive to light and accommodation, cranial nerves grossly normal, moving all 4 extremities, no focal deficits, strength moderately to severely globally decreased. Psychiatric: Affect appears fatigued, tearful during ED discussions, patient frustrated with herself for not recalling history, currently appears anxious. Results Lab / Micro Data 08/12/24 15:12 08/12/24 15:19 Labs: Laboratory Results - last 24 hr 08/12/24 10:43: Lactic Acid 1.3 08/12/24 15:12: WBC 8.2, RBC 5.09, Hgb 14.2, Hct 42.5, MCV 83.5, MCH 27.9, MCHC 33.4, RDW Std Deviation 40.3, RDW Coeff of Jaz 13.2, Plt Count 270, MPV 10.4, Immature Gran % (Auto) 0.500, Neut % (Auto) 70.9 H, Lymph % (Auto) 10.1 L, [place] % (Auto) 11.7 H, Eos % (Auto) 6.1 H, Baso % (Auto) 0.7, Absolute Neuts (auto) 5.9, Absolute Lymphs (auto) 0.83, Nucleated RBC % 0 08/12/24 15:19: PT 13.3, INR 1.0, APTT 28.2, Sodium 137, Potassium 2.9 L, C hloride 96 L, Carbon Dioxide 30.0, Anion Gap 11, BUN 22 H, Creatinine 0.98, Est GFR (MDRD) Af Amer 70, Est GFR (MDRD) Non-Af 58 L, BUN/Creatinine Ratio 22.5 H, Glucose 185 H, Calcium 10.5 H, Total Bilirubin 0.70, AST 20, ALT 25, Alkaline Phosphatase 118 H, Troponin I High Sens 29, B-Natriuretic Peptide 36.5, Total Protein 6.8, Albumin 3.0 L, Globulin 3.8, Albumin/Globulin Ratio 0.8 L 08/12/24 16:14: Magnesium 2.2 08/12/24 16:53: Urine Color Yellow, Urine Clarity Clear, Urine pH 6.0, Ur Specific [place] 1.020, Urine Protein 15 H, Urine Glucose (UA) Normal, Urine Ketones Negative, Urine Occult Blood 25 H, Urine Nitrite Positive H, Urine Bilirubin Negative, Urine Urobilinogen 1 H, Ur Leukocyte Esterase 100 H, Urine RBC 0-5 SEEN, Urine WBC 5-10 SEEN, Ur Squamous Epith Cells 5-10 SEEN, Ur Transition Epith Cell 0-5 SEEN, Ur Renal Epithelial Cell 0-5 SEEN, Urine Bacteria 2+, Urine Mucus 1+ Micro: Microbiology 08/12/24 15:19 Mucosa - Nose SARS-CoV-2, Influenza & RSV (PCR) - Final Imaging Radiology Impression Chest X-Ray 08/12/24 15:20 IMPRESSION: Borderline cardiomegaly. Questionable focal infiltrate in the right lower lobe. Electronically Signed: Elio Cole MD at 15:36 EST , Assessment & Plan Assessment/Plan (1) Pneumonia: (2) Hypoxia: PLAN: Plan The patient is an 83 y/o F w/ PMHx: Obesity, SHIRA on BIPAP, COPD/Asthma, hx TIA, Alzheimer's dementia with unclear extent and unclear behavioral disturbance history, HTN, HLD, CKD stage II per GFR trending, Chronic L hip pain/OA who presents to the [facility] ED on 08/12/24 with history of persistent cough and dyspnea with caregiver at bedside noting that the symptoms have been ongoing for the last couple days prompting eventual ED evaluation to be cautious. #1. Acute Hypoxia (Noted 88% on RA in the ED upon evaluation, presentation not consistent with acute hypoxic respiratory failure) secondary to questionable right lower lobe infiltrate complicated by underlying COPD/asthma: Will admit to [facility] given stable vital sign, maintain on oxygen with wean as tolerated to room air, maintain on ATC DuoNeb therapy, PRN albuterol, maintained on IV Rocephin and Azithromycin with de-escalation of antibiotics as able especially given also noted abnormal urinalysis, HOB, IS parameters w/ pending sputum cultures, full respiratory viral panel and urine antigens, procalcitonin. Bld cx x 2 obtained in the ED. #2. Abnormal urinalysis: Noted urinalysis with elevated specific gravity 1.20, positive nitrate and leukocyte Estrace 100 with urine WBCs 5-10 and 2+ bacteria noted, urine culture pending as noted, will maintain on IV rocephin with de- escalation of antibiotics as able. #3. Hypokalemia: Admission K+ 2.9, magnesium level 2.2, supplementation given, repeat level in AM. #4. Acute renal insufficiency/elevated creatinine on CKD stage II per GFR trending: Admission BUN/creatinine 22/0.98, GFR 58, previous levels primarily stage II, baseline creatinine primarily 0.6-0.8, most recently 07/20/2024 creatinine 0.69, will judiciously hydrate and repeat CMP in AM. #5. Chronic COPD/asthma: Will maintain on oxygen with wean as tolerated to room air, maintain on ATC DuoNeb therapy, PRN albuterol, HOB, IS parameters. #6. Alzheimer's disease, unclear severity, unclear behavioral disturbance history: Complicates presentation, continue home donepezil regimen, maintain on fall precautions, PT/OT/case management consulted for discharge planning #7. Hypertension: Continue home regimen including NG transdermal, holding diuretic temporarily given renal insufficiency as noted, add back once appropriate, PRN hydralazine. #8. Hyperlipidemia: We will continue patient home statin and ezetimibe regimen. #9. History TIA: Noted aspirin allergy but unsure reaction and patient is on baby aspirin of note, continue HTN regimen with alterations as noted, continue statin therapy. #10. Osteoarthritis, Chronic L hip pain: Chronic and unchanged, encourage offloading, fall precautions, PT/OT consulted as noted. #11. SHIRA: Unable to tolerate PAP therapy prior in the hospice recently, used oxygen only q HS prior, will continue to monitor and reattempt PAP therapy as able. #12. Obesity: Weight loss and lifestyle changes encouraged. #13. DVT prophylaxis: Lovenox. #14. CODE status: Full code per prior admission discussions. Charges/Coding Visit Charges Inpatient E&M: 10632 Init Hosp L3
--- NOTE | 2024-08-12 22:24 | ED.RN ---
contacted both family members listed in contacts to obtain pts home med list
[2024-08-13] VITALS (11 sets, daily range): BP systolic 110–131; BP diastolic 46–100; PULSE 71–98; RESP 16–20; TEMP 36.3–36.9; O2SAT 95–99; BMI 36.5
[2024-08-13 00:23] LABS: Procalcitonin 0.12 ng/mL (0.00-0.09)
[2024-08-13] MEDS: Ipratropium/Albuterol Sulfate 3 ML AMPUL.NEB INHALATION ×4 (07:01→19:55)
[2024-08-13 07:46] LABS: Absolute Lymphocyte Count 0.65 X10^3/uL (0.83-4.51); Absolute Neutrophil Count 4.7 X10^3/uL (2.0-7.7); Basophil# 0.05 X10^3/uL; Basophil% 0.7 % (0-1); Eosinophil# 0.82 X10^3/uL; Eosinophils% 11.5 % (0-5); Hematocrit 38.6 % (37-47); Hemoglobin 12.2 g/dL (12.0-15.0); Lymphocyte # 0.65 X10^3/ul (0.83-4.51); Lymphocyte % 9.1 % (19-41); Mean Corp Hgb Conc 31.6 g/dL (32-36); Mean Corpuscular Volume 88.5 fL (81-99); Monocyte# 0.95 X10^3/uL; Monocyte% 13.3 % (0-10); NRBC Flagged by Analyzer 0 % (0-5); Neutrophil # 4.66 X10^3/uL (2.7-7.7); Platelet Count 217 K/mm3 (150-450); RBC Distribution Width CV 13.9 % (11.6-14.6); Red Blood Count 4.36 M/mm3 (4.2-5.4); White Blood Count 7.2 K/mm3 (4.4-11.0)
[2024-08-13 08:05] LABS: ALB/GLOB Ratio 0.7 RATIO (0.9-2.4); AST(SGOT) 18 U/L (15-37); Alanine Aminotransfer ALT/SGPT 18 U/L (13-56); Albumin, Serum 2.4 g/dL (3.2-5.0); Alkaline Phosphatase 98 U/L (45-117); Anion Gap 6 (5-15); BUN 16 mg/dL (7-18); BUN/Creat Ratio 22.3 RATIO (10-20); Calcium,Total 9.8 mg/dL (8.5-10.1); Chloride 110 mmol/L (98-107); Creatinine, Serum 0.72 mg/dL (0.55-1.02); EST Glomerular Filtration Rate 83 mL/min (>60); Est Glom Filt Rate - Afr Amer 100 mL/min (>60); Estimated Creatinine Clearance 49.59 ml/min; Globulin 3.3 g/dL (2.2-4.2); Glucose 112 mg/dL (74-106); Potassium 3.2 mmol/L (3.5-5.1); Protein, Total 5.7 g/dL (6.4-8.2); Sodium Level 142 mmol/L (136-145)
[2024-08-13] MEDS: Enoxaparin 40 MG/0.4 ML Syringe SC (10:08)
[2024-08-13] MEDS: Ezetimibe 10 MG Tablet PO (10:09)
[2024-08-13] MEDS: Aspirin 81 MG TAB.CHEW PO (10:09)
[2024-08-13] MEDS: Nitroglycerin 0.2 MG Patch TD (10:09)
[2024-08-13] MEDS: Menthol/Lanolin/Calamine/Znox 113 GM Tube 1 APPLIC TOPICAL ×4 (10:11→21:20)
[2024-08-13] MEDS: Potassium Chloride Oral Tablet 20 MEQ 40 MEQ PO (10:21)
[2024-08-13] MEDS: Ceftriaxone 1 GM/50 ML BAG IV (10:39)
--- NOTE | 2024-08-13 14:05 | PCM.PROGNOTE ---
Subjective Subjective Patient seen and examined. She complained of incessant cough. She denied any fever, chills, chest pain, palpitations, dizziness, nausea, vomiting or any other symptoms. Review of systems is otherwise negative. Objective Data Objective Data Vital Signs: Vital Signs Temp Pulse Resp BP Pulse Ox O2 Del Method O2 Flow Rate 98.0 F 78 18 125/52 H 97 Nasal Cannula 2 08/13/24 10:05 08/13/24 10:08/13/24 10:08/13/24 10:09 08/13/24 10:08/13/24 10:08/13/24 11:27 Oxygen Flow Rate (L/min) 2 Oxygen Delivery Method Nasal Cannula Weight: 168 lb 13.985 oz Body Mass Index (BMI) 36.5 Intake & Output: Intake and Output for Last 24 Hours 08/11/24 08/12/24 08/13/24 23:59 23:59 23:59 Intake Total 1505 / 1505 650 / 650 Output Total 0 / 0 350 / 350 Balance 1505 / 1505 300 / 300 Lab / Micro Data 08/13/24 06:57 08/13/24 06:57 Labs: Laboratory Results - last 24 hr 08/12/24 10:43: Lactic Acid 1.3 08/12/24 15:12: WBC 8.2, RBC 5.09, Hgb 14.2, Hct 42.5, MCV 83.5, MCH 27.9, MCHC 33.4, RDW Std Deviation 40.3, RDW Coeff of Jaz 13.2, Plt Count 270, MPV 10.4, Immature Gran % (Auto) 0.500, Neut % (Auto) 70.9 H, Lymph % (Auto) 10.1 L, [place] % (Auto) 11.7 H, Eos % (Auto) 6.1 H, Baso % (Auto) 0.7, Absolute Neuts (auto) 5.9, Absolute Lymphs (auto) 0.83, Nucleated RBC % 0 08/12/24 15:19: PT 13.3, INR 1.0, APTT 28.2, Sodium 137, Potassium 2.9 L, Chloride 96 L, Carbon Dioxide 30.0, Anion Gap 11, BUN 22 H, Creatinine 0.98, Est GFR (MDRD) Af Amer 70, Est GFR (MDRD) Non-Af 58 L, BUN/Creatinine Ratio 22.5 H, Glucose 185 H, Calcium 10.5 H, Total Bilirubin 0.70, AST 20, ALT 25, Alkaline Phosphatase 118 H, Troponin I High Sens 29, B-Natriuretic Peptide 36.5, Total Protein 6.8, Albumin 3.0 L, Globulin 3.8, Albumin/Globulin Ratio 0.8 L 08/12/24 16:14: Magnesium 2.2 08/12/24 16:53: Urine Color Yellow, Urine Clarity Clear, Urine pH 6.0, Ur Specific [place] 1.020, Urine Protein 15 H, Urine Glucose (UA) Normal, Urine Ketones Negative, Urine Occult Blood 25 H, Urine Nitrite Positive H, Urine Bilirubin Negative, Urine Urobilinogen 1 H, Ur Leukocyte Esterase 100 H, Urine RBC 0-5 SEEN, Urine WBC 5-10 SEEN, Ur Squamous Epith Cells 5-10 SEEN, Ur Transition Epith Cell 0-5 SEEN, Ur Renal Epithelial Cell 0-5 SEEN, Urine Bacteria 2+, Urine Mucus 1+ 08/12/24 23:40: Procalcitonin 0.12 H 08/13/24 06:57: WBC 7.2, RBC 4.36, Hgb 12.2, Hct 38.6, MCV 88.5 D, MCH 28.0, MCHC 31.6 L D, RDW Std Deviation 45.0 H, RDW Coeff of Jaz 13.9, Plt Count 217, MPV 10.0, Immature Gran % (Auto) 0.400, Neut % (Auto) 65.0, Lymph % (Auto) 9.1 L, [place] % (Auto) 13.3 H, Eos % (Auto) 11.5 H, Baso % (Auto) 0.7, Absolute Neuts (auto) 4.7, Absolute Lymphs (auto) 0.65 L, Nucleated RBC % 0, Sodium 142, Potassium 3.2 L, Chloride 110 H, Carbon Dioxide 27.0, Anion Gap 6, BUN 16, Creatinine 0.72, Estim Creat Clear Calc 49.59, Est GFR (MDRD) Af Amer 100, Est GFR (MDRD) Non-Af 83, BUN/Creatinine Ratio 22.3 H, Glucose 112 H, Calcium 9.8, Total Bilirubin 0.30, AST 18, ALT 18, Alkaline Phosphatase 98, Total Protein 5.7 L, Albumin 2.4 L, Globulin 3.3, Albumin/Globulin Ratio 0.7 L Micro: Microbiology 08/12/24 16:53 Urine Catheter - Reynolds Urine Culture - Preliminary Staphylococcus species 08/13/24 05:55 Mucosa - Nasopharyngeal Respiratory Panel (PCR) - Final 08/12/24 16:53 Urine, Random Legionella Antigen - Final 08/12/24 16:53 Urine, Random Streptococcus pneumoniae Antigen (M - Final 08/12/24 15:19 Mucosa - Nose SARS-CoV-2, Influenza & RSV (PCR) - Final Radiography Diagnostic Testing: Radiology Impression Chest X-Ray 08/12/24 15:20 IMPRESSION: Borderline cardiomegaly. Questionable focal infiltrate in the right lower lobe. Electronically Signed: Elio Cole MD at 15:36 EST , Physical Exam Const alert, oriented x3, no apparent distress and well nourished General Appearance: cooperative HEENT normocephalic, head/scalp atraumatic, moist oral mucous membranes and oropharynx normal Eyes PERRL and EOMs intact bilaterally Neck no lymphadenopathy and supple Lymph Lymphatic: no lymphadenopathy noted and no lymphedema noted Resp Resp Narrative: diminished breath sounds bibasally, no wheezes or crackles. On 2L of oxygen by nasal canula. Cardio regular rate, regular rhythm, S1 normal heart sound, S2 normal heart sound and no murmurs GI normal to inspection, nondistended, normoactive bowel sounds, soft to palpation, non-tender and non-distended Extremity normal capillary refill, no clubbing, cyanosis or edema and no calf tenderness General Extremity: no tenderness to palpation of joints or extremities Skin General Skin Exam: no breakdown Neuro CN's II-XII intact bilaterally, no focal motor deficits and no sensory deficits noted Motor Exam: strength 5/5 throughout and general weakness Psych thought process normal and cooperative Appearance: appropriate Assessment & Plan Assessment/Plan (1) Hypoxia: (2) Pneumonia: (3) Generalized weakness: PLAN: Plan #Hypoxia due to right lower pneumonia currently on 2L of oxygen on IV ceftriaxone and azithromcyin CXR showed bordeline cardiomegaly and questionable focal infiltrate in the right lower lobe. breathing treatment with bronchodilators titrate oxygen to maintain sats >90% urine for strep and legionella negative. respiratory panel negative. #UTI urinalysis showed 2+ bacteria. urine cultures growing Staph aureus. on iV ceftriaxone. Adjust antibiotics based on sensitivity results. check MRSA screen. #Hypokalemia: potassium is 3.2 today. Will replace and trend. #COPD and asthma not in exacerbation. Breathing treatment with bronchodilators. #Alzheimer's dementia: stable. On donepezil. #Hypertension on triamterene/HCTZ. #Hyperlipidemia: on statin and ezetimibe. #History of TIA: on aspirin; though she is listed as allergic to aspirin. #Osteoarthritis of the left hip: PT/OT on board. Fall precautions. DVT prophylaxis: lovenox Charges/Coding Visit Charges Inpatient E&M: 96848 Subs Hosp L2
--- NOTE | 2024-08-13 14:33 | CHAPLAIN ---
Type of Pastoral Visit _x__ Initial Visit ___ Follow-up Visit ___ On-call Visit ___ General Patient Visit ___ Spiritual Assessment ___ Family Conference ___ Bereavement ___ Rapid Response ___ Code Blue ___ Other (describe below) Pastoral Care Referral From __x_ Patient ___ Family ___ Nurse ___ Physician ___ Finance Consultant ___ [employer]er ___ Other (describe below) Sacrament/Intervention _x__ Active listening ___ Anointing ___ Synagogue ___ Bereavement ___ Communion _x__ Britney exploration ___ ___ Life review _x__ Prayer ___ Reconciliation ___ Sacrament of Sick ___ Supportive presence ___ Wedding ___ Other (describe below) Pastoral Comments patient is welcoming but explains that she is hard of hearing; pt states clearly that she is a Yarsani and very spiritual; pt has a life long relationship with the religious; pt is never but states that she has good family support; pt welcomes prayer; pt denies any concerns
[2024-08-13] MEDS: guaiFENesin 1,200 MG Tablet 1200 MG PO ×2 (15:34→21:19)
[2024-08-13] MEDS: 0.9% Saline Lock 10 ML Syringe IV (21:18)
[2024-08-13] MEDS: Donepezil HCl 10 MG Tablet PO (21:19)
[2024-08-13] MEDS: Azithromycin 500 MG in 0.9% Normal Saline (250mL Bag) 250 ML 255 MG IV (21:19)
[2024-08-13] MEDS: Atorvastatin Calcium 10 MG Tablet PO (21:19)
[2024-08-14] VITALS (14 sets, daily range): BP systolic 109–147; BP diastolic 45–62; PULSE 78–101; RESP 15–22; TEMP 36.7–37.3; O2SAT 89–96; BMI 38.0
[2024-08-14 05:10] LABS: Absolute Lymphocyte Count 0.98 X10^3/uL (0.83-4.51); Absolute Neutrophil Count 4.7 X10^3/uL (2.0-7.7); Basophil# 0.05 X10^3/uL; Basophil% 0.7 % (0-1); Eosinophils% 9.2 % (0-5); Hematocrit 34.8 % (37-47); Hemoglobin 11.2 g/dL (12.0-15.0); Lymphocyte # 0.98 X10^3/ul (0.83-4.51); Lymphocyte % 12.9 % (19-41); Mean Corp Hgb Conc 32.2 g/dL (32-36); Mean Platelet Vol. 10.1 fl (6.2-12.0); Monocyte# 1.08 X10^3/uL; Monocyte% 14.2 % (0-10); NRBC Flagged by Analyzer 0 % (0-5); Neutrophil # 4.73 X10^3/uL (2.7-7.7); Neutrophil % 62.3 % (47-70); Platelet Count 221 K/mm3 (150-450); RBC Distribution Width SD 44.5 fl (35.1-43.9); White Blood Count 7.6 K/mm3 (4.4-11.0)
[2024-08-14 05:33] LABS: Anion Gap 6 (5-15); BUN 13 mg/dL (7-18); Calcium,Total 9.7 mg/dL (8.5-10.1); Chloride 108 mmol/L (98-107); Creatinine, Serum 0.52 mg/dL (0.55-1.02); EST Glomerular Filtration Rate 120 mL/min (>60); Est Glom Filt Rate - Afr Amer 145 mL/min (>60); Estimated Creatinine Clearance 49.59 ml/min; Glucose 105 mg/dL (74-106); Potassium 3.5 mmol/L (3.5-5.1); Sodium Level 138 mmol/L (136-145)
[2024-08-14] MEDS: Ipratropium/Albuterol Sulfate 3 ML AMPUL.NEB INHALATION ×4 (07:09→20:49)
[2024-08-14] MEDS: Aspirin 81 MG TAB.CHEW PO (09:51)
[2024-08-14] MEDS: Menthol/Lanolin/Calamine/Znox 113 GM Tube 1 APPLIC TOPICAL ×4 (09:51→21:21)
[2024-08-14] MEDS: Enoxaparin 40 MG/0.4 ML Syringe SC (09:51)
[2024-08-14] MEDS: guaiFENesin 1,200 MG Tablet 1200 MG PO ×2 (09:52→21:21)
[2024-08-14] MEDS: Ezetimibe 10 MG Tablet PO (09:52)
[2024-08-14] MEDS: Ceftriaxone 1 GM/50 ML BAG IV (10:13)
[2024-08-14] MEDS: Nitroglycerin 0.2 MG Patch TD (10:14)
--- NOTE | 2024-08-14 11:06 | PN_ITS ---
Subjective Subjective Patient seen and examined. She had no active complaints today. She says she does feel a bit short of breath, but denies any cough, chest pain, palpitations, dizziness, nausea, vomiting or any other symptoms. he is on 2L of oxygen by nasal canula. Objective Data Objective Data Vital Signs: Vital Signs Temp Pulse Resp BP Pulse Ox O2 Del Method O2 Flow Rate 98.2 F 78 17 124/56 H 90 Nasal Cannula 2 08/14/24 08:23 08/14/24 10:14 08/14/24 08:23 08/14/24 10:14 08/14/24 08:23 08/14/24 09:10 08/14/24 09:10 Oxygen Flow Rate (L/min) 2 Oxygen Delivery Method Nasal Cannula Weight: 175 lb 7.807 oz Body Mass Index (BMI) 38.0 Intake & Output: Intake and Output for Last 24 Hours 08/12/24 08/13/24 08/14/24 23:59 23:59 23:59 Intake Total 1505 / 1505 1145 / 1145 120 / 120 Output Total 0 / 0 600 / 600 200 / 200 Balance 1505 / 1505 545 / 545 -80 / -80 Lab / Micro Data 08/14/24 04:27 08/14/24 04:27 Labs: Laboratory Results - last 24 hr 08/14/24 04:27: WBC 7.6, RBC 4.00 L, Hgb 11.2 L, Hct 34.8 L, MCV 87.0, MCH 28.0, MCHC 32.2, RDW Std Deviation 44.5 H, RDW Coeff of Jaz 14.0, Plt Count 221, MPV 10.1, Immature Gran % (Auto) 0.700, Neut % (Auto) 62.3, Lymph % (Auto) 12.9 L, [place] % (Auto) 14.2 H, Eos % (Auto) 9.2 H, Baso % (Auto) 0.7, Absolute Neuts (auto) 4.7, Absolute Lymphs (auto) 0.98, Nucleated RBC % 0, Sodium 138, Potassium 3.5, Chloride 108 H, Carbon Dioxide 24.0, Anion Gap 6, BUN 13, C reatinine 0.52 L, Estim Creat Clear Calc 49.59, Est GFR (MDRD) Af Amer 145, Est GFR (MDRD) Non-Af 120, BUN/Creatinine Ratio 25.0 H, Glucose 105, Calcium 9.7 Micro: Microbiology 08/12/24 16:53 Urine Catheter - Reynolds Urine Culture - Preliminary Staphylococcus species 08/13/24 05:55 Mucosa - Nasopharyngeal Respiratory Panel (PCR) - Final 08/12/24 16:53 Urine, Random Legionella Antigen - Final 08/12/24 16:53 Urine, Random Streptococcus pneumoniae Antigen (M - Final 08/12/24 15:19 Mucosa - Nose SARS-CoV-2, Influenza & RSV (PCR) - Final Physical Exam Const alert and oriented x3 General Appearance: cooperative HEENT normocephalic, head/scalp atraumatic, moist oral mucous membranes and oropharynx normal HEENT Narrative: hard of hearing Eyes PERRL and EOMs intact bilaterally Neck no lymphadenopathy and supple Lymph Lymphatic: no lymphadenopathy noted and no lymphedema noted Resp Resp Narrative: diminished breath sounds bibasally, no wheezes or crackles. On 2L of oxygen by nasal canula. Cardio regular rate, regular rhythm, S1 normal heart sound, S2 normal heart sound and no murmurs GI normal to inspection, nondistended, normoactive bowel sounds, soft to palpation, non-tender and non-distended Extremity normal capillary refill, no clubbing, cyanosis or edema and no calf tenderness General Extremity: no tenderness to palpation of joints or extremities Skin General Skin Exam: no breakdown Neuro CN's II-XII intact bilaterally, no focal motor deficits and no sensory deficits noted Motor Exam: strength 5/5 throughout and general weakness Psych thought process normal and cooperative Appearance: appropriate Assessment & Plan Assessment/Plan (1) Hypoxia: (2) Pneumonia: (3) Generalized weakness: PLAN: Plan #Hypoxia due to right lower pneumonia * currently on 2L of oxygen * on IV ceftriaxone and azithromcyin * CXR showed borderline cardiomegaly and questionable focal infiltrate in the right lower lobe. * breathing treatment with bronchodilators * titrate oxygen to maintain sats >90% * urine for strep and legionella negative. * respiratory panel negative. * #UTI * urinalysis showed 2+ bacteria. * urine cultures growing Staph aureus. * on iV ceftriaxone. Adjust antibiotics based on sensitivity results. * * #Hypokalemia: resolved. potassium is 3.5 today. #COPD and asthma * not in exacerbation. Breathing treatment with bronchodilators. * #Alzheimer's dementia: stable. On donepezil. #Hypertension * on triamterene/HCTZ. * #Hyperlipidemia: on statin and ezetimibe. #History of TIA: on aspirin; though she is listed as allergic to aspirin. #Osteoarthritis of the left hip: PT/OT on board. Fall precautions. DVT prophylaxis: lovenox Disposition: anticipate dc over the next 1-2 days Charges/Coding Visit Charges Inpatient E&M: 00395 Subs Hosp L2
[2024-08-14] MEDS: FLU VACCINE **HIGH DOSE** TV 24-25 180 MCG/0.5 ML SYRINGE IM (12:18)
--- NOTE | 2024-08-14 14:00 | CASEMGMT ---
BEE HERNANDEZ chart review: Patient was admitted 07/17-07/20/24 for acute influenza and COPD exacerbation. See Assessment from 07/18/24. Patient was discharged to home with [facility], home oxygen at 2lpm with [employer], family support, and follow-up plans in place. Patient returned to [facility] ED on 08/12/24 for increased cough and dyspnea. Patient was admitted for pneumonia and hypoxia. BEE HERNANDEZ in to discuss readmission and needs at discharge, sister in law at bedside. Patient is very [place], sister in law answering questions. Per sister in law, Tika, patient was taking medications as prescribed and had followed up with her PCP. Patient was not wearing oxygen continuously. BEE HERNANDEZ educated patient on the importance of wearing her oxygen as ordered. Per Tika, HHC had been out to the home. Patient wishes to return home with resumption of [facility] and family support. Will monitor for increase in home oxygen. Patient and Tika had no further questions or concerns. CM will continue to follow this patient and plan for a safe discharge.
--- NOTE | 2024-08-14 15:49 | EKG12_ITS ---
Test Reason : CP Blood Pressure : */* mmHG Vent. Rate : 103 BPM Atrial Rate : 103 BPM P-R Int : 160 ms QRS Dur : 96 ms QT Int : 334 ms P-R-T Axes : 39 -18 60 degrees QTcB Int : 437 ms Sinus tachycardia with occasional Premature ventricular complexes Moderate voltage criteria for LVH, may be normal variant ( R in aVL , [place] product ) Septal infarct , age undetermined Abnormal ECG When compared with ECG of 12-Aug-2024 15:18, MANUAL COMPARISON REQUIRED DATA IS UNCONFIRMED Confirmed by GRAYSON LOWE, ÓSCAR ([id number]), scientific editor AMBIKA HAYES ([id number]) on 08/18/2024 2:11:25 PM Referred By: Confirmed By: ÓSCAR GALICIA MD
[2024-08-14 17:22] LABS: Troponin-I HS 27 pg/mL (3.0-54.0)
[2024-08-14 18:55] LABS: Troponin-I HS 28 pg/mL (3.0-54.0)
[2024-08-14] MEDS: 0.9% Saline Lock 10 ML Syringe IV (21:21)
[2024-08-14] MEDS: Atorvastatin Calcium 10 MG Tablet PO (21:21)
[2024-08-14] MEDS: Azithromycin 500 MG in 0.9% Normal Saline (250mL Bag) 250 ML 255 MG IV (21:23)
[2024-08-14] MEDS: Donepezil HCl 10 MG Tablet PO (21:26)
[2024-08-14 23:07] LABS: Troponin-I HS 26 pg/mL (3.0-54.0)
[2024-08-15] VITALS (7 sets, daily range): BP systolic 105–140; BP diastolic 44–77; PULSE 85–90; RESP 16–20; TEMP 36.8–36.9; O2SAT 88–96
[2024-08-15 05:50] LABS: Absolute Lymphocyte Count 0.95 X10^3/uL (0.83-4.51); Absolute Neutrophil Count 4.7 X10^3/uL (2.0-7.7); Basophil# 0.05 X10^3/uL; Basophil% 0.7 % (0-1); Eosinophil# 0.66 X10^3/uL; Eosinophils% 9.1 % (0-5); Hematocrit 34.3 % (37-47); Lymphocyte # 0.95 X10^3/ul (0.83-4.51); Lymphocyte % 13.1 % (19-41); Mean Corp Hgb Conc 32.1 g/dL (32-36); Mean Corpuscular Hgb 27.8 pg (27.0-32.0); Mean Corpuscular Volume 86.6 fL (81-99); Mean Platelet Vol. 10.1 fl (6.2-12.0); Monocyte# 0.88 X10^3/uL; Monocyte% 12.1 % (0-10); NRBC Flagged by Analyzer 0 % (0-5); Neutrophil # 4.68 X10^3/uL (2.7-7.7); Neutrophil % 64.3 % (47-70); Platelet Count 230 K/mm3 (150-450); RBC Distribution Width CV 14.1 % (11.6-14.6); RBC Distribution Width SD 45.1 fl (35.1-43.9); Red Blood Count 3.96 M/mm3 (4.2-5.4); White Blood Count 7.3 K/mm3 (4.4-11.0)
[2024-08-15 06:19] LABS: Anion Gap 6 (5-15); BUN 12 mg/dL (7-18); BUN/Creat Ratio 27.4 RATIO (10-20); Chloride 110 mmol/L (98-107); Creatinine, Serum 0.44 mg/dL (0.55-1.02); EST Glomerular Filtration Rate 146 mL/min (>60); Est Glom Filt Rate - Afr Amer 177 mL/min (>60); Estimated Creatinine Clearance 50.62 ml/min; Glucose 108 mg/dL (74-106); Potassium 3.8 mmol/L (3.5-5.1); Sodium Level 140 mmol/L (136-145)
[2024-08-15] MEDS: Ipratropium/Albuterol Sulfate 3 ML AMPUL.NEB INHALATION ×2 (07:24→11:43)
[2024-08-15] MEDS: 0.9% Saline Lock 10 ML Syringe IV (08:25)
[2024-08-15] MEDS: Aspirin 81 MG TAB.CHEW PO (09:25)
[2024-08-15] MEDS: Menthol/Lanolin/Calamine/Znox 113 GM Tube 1 APPLIC TOPICAL (09:25)
[2024-08-15] MEDS: guaiFENesin 1,200 MG Tablet 1200 MG PO (09:26)
[2024-08-15] MEDS: Ezetimibe 10 MG Tablet PO (09:26)
[2024-08-15] MEDS: Nitroglycerin 0.2 MG Patch TD (09:26)
[2024-08-15] MEDS: Enoxaparin 40 MG/0.4 ML Syringe SC (09:28)
[2024-08-15] MEDS: Nystatin Powder 15gm Bottle 1 APPLIC TOPICAL (09:29)
[2024-08-15] MEDS: Ceftriaxone 1 GM/50 ML BAG IV (09:35)
[2024-08-15] MEDS: Nitrofurantoin Macrocrystals 100 MG Capsule PO (11:37)
--- NOTE | 2024-08-15 13:11 | DS.PCM_ITS ---
Providers Date of Admission: 08/12/24 Date of Discharge: 08/15/24 Primary Care Physician: Dr. James Leach DO Reason For Visit: PNA, HYPOXIA Diagnosis Discharge Diagnosis (1) Hypoxia: Status: Acute Code(s): R09.02 - Hypoxemia (2) Pneumonia: Status: Acute Code(s): J18.9 - Pneumonia, unspecified organism (3) Generalized weakness: Status: Acute Code(s): R53.1 - Weakness Plan #Hypoxia due to right lower pneumonia * currently on 2L of oxygen * on IV ceftriaxone and azithromcyin * CXR showed borderline cardiomegaly and questionable focal infiltrate in the right lower lobe. * breathing treatment with bronchodilators * titrate oxygen to maintain sats >90% * urine for strep and legionella negative. * respiratory panel negative. * #UTI * urinalysis showed 2+ bacteria. * urine cultures growing Staph aureus. * on iV ceftriaxone. Adjust antibiotics based on sensitivity results. * * #Hypokalemia: resolved. potassium is 3.5 today. #COPD and asthma * not in exacerbation. Breathing treatment with bronchodilators. * #Alzheimer's dementia: stable. On donepezil. #Hypertension * on triamterene/HCTZ. * #Hyperlipidemia: on statin and ezetimibe. #History of TIA: on aspirin; though she is listed as allergic to aspirin. #Osteoarthritis of the left hip: PT/OT on board. Fall precautions. DVT prophylaxis: lovenox Disposition: anticipate dc over the next 1-2 days Medications at Discharge Home Medications albuterol sulfate 90 mcg/actuation aerosol inhaler 2 puff inhalation .qid PRN wheezing 07/17/24 ezetimibe 10 mg tablet 10 mg PO DAILY cholesterol 07/17/24 furosemide 20 mg tablet 20 mg PO DAILY PRN edema 07/17/24 nitroglycerin 0.2 mg/hr transdermal 24 hour patch 1 patch transdermal DAILY heart 07/17/24 rosuvastatin 5 mg tablet 5 mg PO DAILY cholesterol 07/17/24 triamterene 37.5 mg-hydrochlorothiazide 25 mg capsule 1 cap PO DAILY diuretic 07/17/24 guaifenesin 100 mg/5 mL oral liquid 200 mg (10 mL) PO Q4H PRN PRN Cough #473 mL 07/19/24 ipratropium 0.5 mg-albuterol 3 mg (2.5 mg base)/3 mL nebulization soln 3 ml inhalation Q6H Influenza, COPD/Asthma 14 days #180 mL 07/19/24 aspirin 81 mg capsule 81 mg PO DAILY heart 08/12/24 donepezil 5 mg tablet 10 mg PO QHS dementia 08/12/24 levofloxacin 500 mg tablet 500 mg PO DAILY #5 tabs 08/15/24 nitrofurantoin macrocrystal 100 mg capsule 100 mg PO BID #10 caps 08/15/24 Hospital Course Operations None Procedures None Summary of Care Provided Minutes Spent on Discharge: 45 Hospital Course: Patient is an 83-year-old female with a past medical history as outlined was admitted through the ED on 08/12/2024 with a complaint of cough and shortness of breath which had been going on for about a couple of days prior to admission. She had not had any ill contacts in the home. Initial history was given by her caregiver because patient had dementia and so could not give any further information. She desaturated to 88% on room air. Labs were significant for WBC of 8.2 was otherwise unremarkable. Initial troponin was 29 BNP was 36.5. Urinalysis does show evidence of UTI with 2+ bacteria. COVID, flu and RSV were negative. Blood cultures x 2 were ordered. Chest x-ray showed borderline cardiomegaly with questionable focal infiltrate in the right lower lobe. She was admitted to be managed for hypoxia due to community-acquired pneumonia. She was started on IV ceftriaxone and azithromycin. His symptoms did improve and she was weaned down to 2 L of oxygen. Urine culture grew staphylococcus simulans. This was sensitive to nitrofurantoin. She was discharged home on 08/15/2024 on p.o. levofloxacin for the pneumonia and PO nitrofurantoin for the UTI for a 5-day course. She is to follow-up with her primary care doctor within 1 to 2 weeks. Of note urine for strep and Legionella antigens were negative and respiratory panel was also negative. Blood cultures also showed no growth. She was discharged on 2 L of oxygen by nasal cannula. Patient seen and examined prior to discharge. She had no active complaints. Review of systems otherwise negative. Labs and vitals reviewed. Home medication reviewed and reconciled. Physical Exam Const alert, oriented x3, no apparent distress and well nourished General Appearance: cooperative, comfortable and well kempt Orientation / Consciousness: awake Exam Limitations: no limitations HEENT normocephalic, head/scalp atraumatic, hearing grossly normal bilaterally, moist oral mucous membranes and oropharynx normal Mouth: oral and palatal mucosa normal Eyes PERRL, EOMs intact bilaterally and conjunctivae normal Neck no lymphadenopathy and supple Lymph Lymphatic: no lymphadenopathy noted and no lymphedema noted Resp Resp Narrative: diminished breath sounds bibasally, no wheezes or crackles. On 2L of oxygen by nasal canula. Cardio regular rate, regular rhythm, S1 normal heart sound, S2 normal heart sound and no murmurs GI normal to inspection, nondistended, normoactive bowel sounds, soft to palpation, non-tender and non-distended Extremity normal to inspection, full ROM, normal capillary refill, no clubbing, cyanosis or edema and no calf tenderness General Extremity: no tenderness to palpation of joints or extremities Skin no rashes or lesions noted General Skin Exam: no breakdown Neuro oriented x3, CN's II-XII intact bilaterally, moves all extremities, no focal motor deficits and no sensory deficits noted Sensorium / Orientation: awake and alert Motor Exam: strength 5/5 throughout and general weakness Psych thought process normal and cooperative Appearance: appropriate Weight / BMI Weight Weight: 175 lb 7.807 oz Body Mass Index (BMI) 38.0 ABG / Lab / Microbiology Data 08/15/24 05:00 08/15/24 05:00 Laboratory: Laboratory Results - last 24 hr 08/14/24 16:47: Troponin I High Sens 27 08/14/24 18:29: Troponin I High Sens 28 08/14/24 22:44: Troponin I High Sens 26 08/15/24 05:00: WBC 7.3, RBC 3.96 L, Hgb 11.0 L, Hct 34.3 L, MCV 86.6, MCH 27.8, MCHC 32.1, RDW Std Deviation 45.1 H, RDW Coeff of Jaz 14.1, Plt Count 230, MPV 10.1, Immature Gran % (Auto) 0.700, Neut % (Auto) 64.3, Lymph % (Auto) 13.1 L, M gee % (Auto) 12.1 H, Eos % (Auto) 9.1 H, Baso % (Auto) 0.7, Absolute Neuts (auto) 4.7, Absolute Lymphs (auto) 0.95, Nucleated RBC % 0, Sodium 140, Potassium 3.8, Chloride 110 H, Carbon Dioxide 24.0, Anion Gap 6, BUN 12, C reatinine 0.44 L, Estim Creat Clear Calc 50.62, Est GFR (MDRD) Af Amer 177, Est GFR (MDRD) Non-Af 146, BUN/Creatinine Ratio 27.4 H, Glucose 108 H, Calcium 10.0 Microbiology: Microbiology 08/12/24 16:53 Urine Catheter - Reynolds Urine Culture - Final Staphylococcus simulans 08/12/24 15:43 Blood Culture (Wb) - Right Forearm Blood Culture - Preliminary No growth in 48 hours. 08/12/24 15:43 Blood Culture (Wb) - Left Forearm Blood Culture - Preliminary No growth in 48 hours. 08/14/24 11:51 Nasal Secretion MRSA (PCR) - Final 08/13/24 05:55 Mucosa - Nasopharyngeal Respiratory Panel (PCR) - Final 08/12/24 16:53 Urine, Random Legionella Antigen - Final 08/12/24 16:53 Urine, Random Streptococcus pneumoniae Antigen (M - Final 08/12/24 15:19 Mucosa - Nose SARS-CoV-2, Influenza & RSV (PCR) - Final D/C Instructions Discharge Diet: Low fat / Low cholesterol Discharge Activity: Return to Normal Activity Weight Bearing Status: Weight bearing as tolerated Call your doctor if you observe: Fever of 101 or Higher, Shortness of breath, Dizziness, Swelling in the ankles and Chest pain DC O2, CPAP, BIPAP Needs RN Home O2 Qualification: Home O2 Qualification: Is the patient on home oxygen Yes 08/15/24 09:01 Home O2 Qualification: AT REST 1-Pulse Ox at rest 96 08/15/24 09:01 1- Oxygen flow rate at rest 2 08/15/24 09:01 Home O2 Qualification: WITH AMBULATION 1- Pulse Ox with ambulation 94 08/15/24 09:01 1- Oxygen Flow Rate with 2 08/15/24 09:01 ambulation Home O2 Discharge instructions: Yes Type of respiratory needs?: Oxygen Oxygen frequency: Continuous Continuous oxygen liters per minute: 2 DC home with Oxygen: Yes Home O2 MD Review: I have reviewed the oxygen testing, and the patient qualifies for home oxygen equipment and portability. The patient is mobile in the home and the community. Meaningful Use Info Meaningful Use Meaningful Use Diagnoses (Choose all that apply): None applicable Ischemic Stroke Statin Dosing Therapy Reference: STATIN DOSE THERAPY REFERENCE: * Patients > 75 years receive moderate or high dose statin therapy. * Patients 75 years or YOUNGER should receive HIGH intensity statin dose unless contraindicated. You will be required to document reason for non-treatment if statin daily dose does not meet guidelines. HIGH DOSE STATIN THERAPY DAILY Atorvastatin > than or = to 40 mg Rosuvastatin > than or = to 20 mg Amlodipine + Atorvastatin > than or = to 2.5/40 mg Ezetimibe + Simvastatin 10/80 mg Simvastatin 80mg Discharge Plan Admission Admit Date/Time: 08/12/24 21:40 Primary Reason for Your Visit: right lower lobe pneumonia Attending Provider: Alba Jurado Primary Care Provider: James Leach Consulting Providers: Jennifer Jon Instructions Patient Instructions: ED Pneumonia (Adult) Discharge Orders/Prescriptions Prescriptions: New levofloxacin 500 mg tablet 500 mg PO DAILY Qty: 5 0RF nitrofurantoin macrocrystal 100 mg capsule 100 mg PO BID Qty: 10 0RF Rx Instructions: must administer with a meal/food Continued albuterol sulfate 90 mcg/actuation HFA aerosol inhaler 2 puff INHALATION .qid PRN (Reason: wheezing) Patient Comments: inhale 2 puffs by mouth up to four times a day if needed furosemide 20 mg tablet 20 mg PO DAILY PRN (Reason: edema) ezetimibe 10 mg tablet 10 mg PO DAILY nitroglycerin 0.2 mg/hr patch 24 hour 1 patch transdermal DAILY triamterene-hydrochlorothiazid 37.5-25 mg capsule 1 cap PO DAILY rosuvastatin 5 mg tablet 5 mg PO DAILY guaifenesin 100 mg/5 mL Liquid 200 mg PO Q4H PRN PRN (Reason: Cough) Qty: 473 0RF ipratropium-albuterol 0.5 mg-3 mg(2.5 mg base)/3 mL solution for nebulization 3 ml inhalation Q6H 14 Days Qty: 180 0RF Rx Instructions: Please continue scheduled aerosols for the next 10-14 days and then may return to only as needed. donepezil 5 mg tablet 10 mg PO QHS aspirin 81 mg capsule 81 mg PO DAILY Referrals / Follow Up: James Leach DO [Primary Care Provider] - 08/20/24 1:00 pm Disposition Disposition (needs filled in before D/C Order can be placed): Home Health Service Charges/Coding Visit Charges Inpatient E&M: 67698 Disch Hosp >30min
--- NOTE | 2024-08-15 14:13 | CASEMGMT ---
BEE HERNANDEZ called sister in law Tika to update regarding order for discharge. Patient has dementia. BEE HERNANDEZ updated patient that HHC as been resumed with [facility] with start of care for this weekend. BEE HERNANDEZ updated Tika that patient will still need to wear her home oxygen as previously ordered at 2lpm. Tika is aware to bring portable tank from home. Tika had no further questions or concerns.
--- NOTE | 2024-08-15 14:30 | CASEMGMT ---
HH resumption order and discharge instructions sent to N. SOC will be this weekend. BEE CM updated. Cori Mo DC Planning Asst.
== END 2024-08-15 15:35 | disposition home health service (06) | DRG 194 ==
LOC: ED 21:33 → PCU 21:53
PROVIDERS: Admitting Provider Family Medicine; Emergency Provider Emergency Medicine; Visit Provider Student in an Organized Health Care Education/Training Program
DX: J18.9 Pneumonia, unspecified organism (principal); J44.0 Chronic obstructive pulmonary disease with (acute) lower respiratory infection; N39.0 Urinary tract infection, site not specified; G30.9 Alzheimer's disease, unspecified; I12.9 Hypertensive chronic kidney disease with stage 1 through stage 4 chronic kidney disease, or unspecified chronic kidney disease; E66.9 Obesity, unspecified; N18.2 Chronic kidney disease, stage 2 (mild); E78.5 Hyperlipidemia, unspecified; E87.6 Hypokalemia; M16.12 Unilateral primary osteoarthritis, left hip; F02.80 Dementia in other diseases classified elsewhere, unspecified severity, without behavioral disturbance, psychotic disturbance, mood disturbance, and anxiety; G47.33 Obstructive sleep apnea (adult) (pediatric); G89.29 Other chronic pain; B95.7 Other staphylococcus as the cause of diseases classified elsewhere; R09.02 Hypoxemia; Z68.34 Body mass index [BMI] 34.0-34.9, adult; Z79.51 Long term (current) use of inhaled steroids; Z79.82 Long term (current) use of aspirin; Z79.899 Other long term (current) drug therapy; Z86.73 Personal history of transient ischemic attack (TIA), and cerebral infarction without residual deficits; Z23 Encounter for immunization
CPT/HCPCS: 36415; 71046; 80048; 80053; 81001; 83605; 83735; 83880; 84145; 84484; 85025; 85610; 85730; 87040; 87077; 87086; 87088; 87186; 87449; 87631; 87633; 87641; 90662; 93005; 94640; 94668; 97116; 97162; 97166; 99285; A4216

== ENCOUNTER 2024-08-28 10:34 | Emergency (ER) | payer MEDICARE, SELFPAY ==
[2024-08-28] VITALS (10 sets, daily range): BP systolic 107–124; BP diastolic 50–80; PULSE 64–96; RESP 16–19; TEMP 36.6–36.8; O2SAT 94–100; BMI 35.7
--- NOTE | 2024-08-28 10:38 | RAD_ITS ---
EXAM: CHEST 1 VIEW (PORTABLE) CLINICAL HISTORY: Chest pain. Difficulty breathing. COMPARISON: None. TECHNIQUE: Portable chest radiograph was obtained. FINDINGS: EKG electrodes are seen. Calcification of the aortic arch. Mild cardiomegaly. Mild scarring at the lung bases. RAD/Chest 1 View (Portable) IMPRESSION: No acute abnormality is seen. Reading Location: [id number]
--- NOTE | 2024-08-28 10:38 | EKG12_ITS ---
Test Reason : CP Blood Pressure : */* mmHG Vent. Rate : 78 BPM Atrial Rate : 78 BPM P-R Int : 190 ms QRS Dur : 98 ms QT Int : 370 ms P-R-T Axes : 61 -41 54 degrees QTcB Int : 421 ms Sinus rhythm with marked sinus arrhythmia Left axis deviation Moderate voltage criteria for LVH, may be normal variant ( R in aVL , [place] product ) Abnormal ECG Confirmed by MICKY LOWE, YENNY ([id number]), associate entertainment editor KEITH DURAN ([id number]) on 08/30/2024 7:59:29 AM Referred By: Confirmed By: YENNY EWEKS MD
[2024-08-28 10:48] LABS: Absolute Lymphocyte Count 1.81 X10^3/uL (0.83-4.51); Absolute Neutrophil Count 5.7 X10^3/uL (2.0-7.7); Basophil# 0.12 X10^3/uL; Basophil% 1.3 % (0-1); Eosinophil# 0.34 X10^3/uL; Eosinophils% 3.8 % (0-5); Hematocrit 44.9 % (37-47); Hemoglobin 14.5 g/dL (12.0-15.0); Lymphocyte # 1.81 X10^3/ul (0.83-4.51); Mean Corp Hgb Conc 32.3 g/dL (32-36); Mean Corpuscular Volume 86.8 fL (81-99); Monocyte# 0.98 X10^3/uL; Monocyte% 10.8 % (0-10); NRBC Flagged by Analyzer 0 % (0-5); Neutrophil # 5.73 X10^3/uL (2.7-7.7); Neutrophil % 63.4 % (47-70); Platelet Count 369 K/mm3 (150-450); RBC Distribution Width CV 14.6 % (11.6-14.6); RBC Distribution Width SD 46.1 fl (35.1-43.9); Red Blood Count 5.17 M/mm3 (4.2-5.4)
[2024-08-28 11:21] LABS: Anion Gap 8 (5-15); BUN 16 mg/dL (7-18); BUN/Creat Ratio 24.4 RATIO (10-20); Calcium,Total 11.8 mg/dL (8.5-10.1); Chloride 104 mmol/L (98-107); Creatinine, Serum 0.66 mg/dL (0.55-1.02); EST Glomerular Filtration Rate 92 mL/min (>60); Est Glom Filt Rate - Afr Amer 111 mL/min (>60); Estimated Creatinine Clearance 49.04 ml/min; Glucose 105 mg/dL (74-106); Potassium 3.5 mmol/L (3.5-5.1); Sodium Level 140 mmol/L (136-145); Troponin-I HS (w/2H Reflex) 19 pg/mL (3.0-54.0)
--- NOTE | 2024-08-28 12:18 | ED.VIS.CHEST ---
HPI History of Present Illness Chief Complaint: Chest Pain Informant: patient, family and EMS Narrative Narrative: Patient is an 83 female with history of chronic hypoxic respiratory failure on 2 L of oxygen, asthma, dementia, hypertension, SHIRA (is not tolerating BiPAP secondary to claustrophobia) and recent hospitalizations for viral syndromes, respiratory failure and weakness. She presenting today after an episode of chest pain at home. Patient herself does not know why she is in the emergency room but states I guess I might have been short of breath. She does not know if she is wearing home O2. She states that she was at her [id number]'s house today and 9 1 was called and that all she knows. She does tell me that she has feeling a little dizzy. I spoke with her nephew Jorge who is her medical power of district attorney. He states that she started complaining of chest pain today through the center of her chest. His mom called 911 and she was brought here for evaluation. She does have home health. She has been wearing her 2 L of oxygen. He states that she has been complained of dizziness for a long while. Is not sure if maybe she is getting anxious he does note going on because of her dementia. Has been done with asthma for years but has been worse since having influenza in June. States that overall she has been doing well over the past few days. [facility] Medical History Hypoxia Generalized weakness Pneumonia Hypoxia HLD (hyperlipidemia) HTN (hypertension) CKD (chronic kidney disease), stage II Chronic left hip pain SHIRA (obstructive sleep apnea) Obesity (BMI 30.0-34.9) Alzheimer dementia Osteoporosis Non-smoker BiPAP (biphasic positive airway pressure) dependence COPD (chronic obstructive pulmonary disease) Asthma TIA (transient ischemic attack) Home Medications ?Medication ?Instructions ?Recorded ?Last Taken ?Type albuterol sulfate 90 mcg/actuation 2 puff inhalation .qid PRN wheezing 07/17/24 Unknown History aerosol inhaler ezetimibe 10 mg tablet 10 mg PO DAILY cholesterol 07/17/24 Unknown History furosemide 20 mg tablet 20 mg PO DAILY PRN edema 07/17/24 Unknown History nitroglycerin 0.2 mg/hr 1 patch transdermal DAILY heart 07/17/24 Unknown History transdermal 24 hour patch rosuvastatin 5 mg tablet 5 mg PO DAILY cholesterol 07/17/24 Unknown History triamterene 37.5 1 cap PO DAILY diuretic 07/17/24 Unknown History mg-hydrochlorothiazide 25 mg capsule guaifenesin 100 mg/5 mL oral liquid 200 mg (10 mL) PO Q4H PRN PRN 07/19/24 Unknown Rx Cough #473 mL ipratropium 0.5 mg-albuterol 3 mg 3 ml inhalation Q6H Influenza, 07/19/24 Unknown Rx (2.5 mg base)/3 mL nebulization COPD/Asthma 14 days #180 mL soln aspirin 81 mg capsule 81 mg PO DAILY heart 08/12/24 Unknown History donepezil 5 mg tablet 10 mg PO QHS dementia 08/12/24 Unknown History levofloxacin 500 mg tablet 500 mg PO DAILY #5 tabs 08/15/24 Unknown Rx nitrofurantoin macrocrystal 100 mg 100 mg PO BID #10 caps 08/15/24 Unknown Rx capsule Allergy/AdvReac Type Severity Reaction Status Date / Time aspirin Allergy Unknown PT UNSURE Verified 08/28/24 10:34 OF REACTION cefaclor Allergy PT UNSURE Verified 08/28/24 10:34 OF REACTION chlorzoxazone Allergy PT UNSURE Verified 08/28/24 10:34 OF REACTION codeine Allergy PT UNSURE Verified 08/28/24 10:34 OF REACTION erythromycin base Allergy PT UNSURE Verified 08/28/24 10:34 OF REACTION guanfacine Allergy PT UNSURE Verified 08/28/24 10:34 OF REACTION naproxen Allergy PT UNSURE Verified 08/28/24 10:34 OF REACTION orphenadrine Allergy PT UNSURE Verified 08/28/24 10:34 OF REACTION oxytetracycline Allergy PT UNSURE Verified 08/28/24 10:34 OF REACTION Penicillins Allergy PT UNSURE Verified 08/28/24 10:34 OF REACTION piroxicam Allergy PT UNSURE Verified 08/28/24 10:34 OF REACTION Sulfa (Sulfonamide Allergy PT UNSURE Verified 08/28/24 10:34 Antibiotics) OF REACTION testosterone Allergy PT UNSURE Verified 08/28/24 10:34 OF REACTION Social History household members: 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 Smoking Status: Never smoker alcohol intake: never substance use type: does not use ROS ROS ED Review of Systems ROS Unobtainable: due to mental status EXAM Physical Exam Const Vital Signs: 08/28/24 10:35 08/28/24 10:38 08/28/24 10:40 Temperature 98.2 F Temperature Source Oral Pulse Rate 82 Respiratory Rate 16 Respiratory Effort Normal Respiratory Pattern Normal Blood Pressure 124/53 H Blood Pressure Mean 76 Pulse Ox 97 97 Oxygen Delivery Method Nasal Cannula Nasal Cannula Oxygen Flow Rate (L/min) 2 2 08/28/24 11:34 08/28/24 12:00 08/28/24 12:39 Temperature Temperature Source Pulse Rate 69 77 64 Respiratory Rate 16 19 H 16 Respiratory Effort Respiratory Pattern Normal Blood Pressure 123/63 H 118/67 Blood Pressure Mean 83 84 Pulse Ox 95 96 Oxygen Delivery Method Nasal Cannula Room Air Oxygen Flow Rate (L/min) 2 08/28/24 13:00 08/28/24 14:00 08/28/24 15:10 Temperature Temperature Source Pulse Rate 84 93 96 Respiratory Rate 18 16 18 Respiratory Effort Respiratory Pattern Blood Pressure 119/50 L 107/52 L 122/52 H Blood Pressure Mean 73 70 75 Pulse Ox 95 94 98 Oxygen Delivery Method Nasal Cannula Nasal Cannula Nasal Cannula Oxygen Flow Rate (L/min) 2 2 2 08/28/24 15:27 Temperature 97.9 F Temperature Source Pulse Rate 80 Respiratory Rate 16 Respiratory Effort Respiratory Pattern Blood Pressure 122/54 H Blood Pressure Mean 76 Pulse Ox 100 Oxygen Delivery Method Oxygen Flow Rate (L/min) Positive well nourished and well developed General Appearance ED: well developed and NAD HEENT Reports moist mucous membranes Eyes PERRL Neck supple and no JVD Chest Wall inspection of chest normal and palpation of chest normal Resp normal respiratory effort Resp Narrative: Mildly coarse breath sounds, slightly diminished at the left base. No wheezing appreciated Cardio regular rate and regular rhythm GI normal to inspection, nondistended, normoactive bowel sounds and soft to palpation Extremity normal to inspection General Extremety ED: Negative for edema General Extremity: Negative for edema Neuro Neuro Narrative: Oriented to self only. Patient at her cognitive baseline. No focal deficits appreciated. Sensorium / Orientation: awake and alert Psych mental status grossly normal Skin no rashes or lesions noted and no wounds Heart Score History: Slightly/Non-Suspicious ECG: Nonspecific Repolarization Age: >/= 65 years Risk Factors: 1 or 2 Risk Factors Troponin: </= Normal Limit Score: 4 MDM MDM MDM Narrative Medical decision making narrative: Patient is evaluated for an episode of chest pain that she had at home. Patient does not recall why she is here and currently denies any chest pain. Patient does have a history of hypoxic respiratory failure and asthma/COPD as well as some cardiac history. Differential includes ACS, pulmonary emboli given recent hospitalizations, pericarditis, myocarditis, pneumonia, symptomatic anemia and influenza. Patient is given a DuoNeb in the emergency room. She is a 100% on 2 L. She does not have any acute wheezing I do not think is having acute COPD/asthma exacerbation. She is hemodynamically stable in the emergency room. Workup is remarkable for an elevated D-dimer of 1.65. Is otherwise normal. CTA is ordered which does not show any acute process. She is chronic findings of the lungs consistent with emphysema/COPD which is expected. Chest x-ray viewed by myself as well as radiology does not show any acute process. I spoke with the patient's nephew who is her medical decision-maker, Jorge. He is comfortable with the be discharged home if workup is negative. Social work did evaluate the patient and also speak with her home health as there is concern for her needing higher level of care from home health. They will continue to follow her. At this time it does not sound like patient's or family is ready to consider alternative placement. I do not think she needs to come into the ER from debility standpoint or from a cardiorespiratory standpoint. This is discussed with the patient's nephew with social work. Lab Data Attestation: I reviewed the patient's lab results. Labs: Laboratory Results - last 24 hr 08/28/24 08/28/24 08/28/24 10:00 10:40 12:55 WBC 9.0 RBC 5.17 Hgb 14.5 Hct 44.9 MCV 86.8 MCH 28.0 MCHC 32.3 RDW Std Deviation 46.1 H RDW Coeff of Jaz 14.6 Plt Count 369 MPV 10.0 Immature Gran % (Auto) 0.700 Neut % (Auto) 63.4 Lymph % (Auto) 20.0 [place] % (Auto) 10.8 H Eos % (Auto) 3.8 Baso % (Auto) 1.3 H Absolute Neuts (auto) 5.7 Absolute Lymphs (auto) 1.81 Nucleated RBC % 0 D-Dimer Quant (PE/DVT) 1.65 H* Sodium 140 Potassium 3.5 Chloride 104 Carbon Dioxide 28.0 Anion Gap 8 BUN 16 Creatinine 0.66 Estim Creat Clear Calc 49.04 Est GFR (MDRD) Af Amer 111 Est GFR (MDRD) Non-Af 92 BUN/Creatinine Ratio 24.4 H Glucose 105 Calcium 11.8 H Troponin I High Sens 19 18 Radiography Diagnostic Testing: Clinical Impression(s) from Imaging Studies Chest X-Ray 08/28/24 10:38 IMPRESSION: No acute abnormality is seen. Reading Location: [id number] Chest CTA 08/28/24 13:30 IMPRESSION: 1. No pulmonary embolism is identified. Some of the distal pulmonary arteries cannot be evaluated due to suboptimal opacification. 2. Lung emphysema/COPD. 3. Degenerative changes thoracic spine as described. Reading Location: [facility] Rhythm Strip Rhythm Strip: Sinus Rhythm Rate: 78 Ectopy: None EKG Initial EKG: Attestation: I personally reviewed and interpreted this EKG as follows: Interpretation: Sinus Rhythm Comments: Normal sinus rhythm at a rate of 78 bpm with sinus arrhythmia Left axis deviation Moderate voltage criteria for LVH Normal ST segments Management Discussion w/another healthcare provider: sound installation worker/Case management Discharge Plan Triage Chief Complaint: Chest Pain ED Provider: Violeta Rodríguez Dx/Rx/DC Orders Clinical Impression: Dementia, Chest pain Instructions: ED Chest Pain, Uncertain Cause Prescriptions: No Action albuterol sulfate 90 mcg/actuation HFA aerosol inhaler 2 puff INHALATION .qid PRN (Reason: wheezing) Patient Comments: inhale 2 puffs by mouth up to four times a day if needed furosemide 20 mg tablet 20 mg PO DAILY PRN (Reason: edema) ezetimibe 10 mg tablet 10 mg PO DAILY nitroglycerin 0.2 mg/hr patch 24 hour 1 patch transdermal DAILY triamterene-hydrochlorothiazid 37.5-25 mg capsule 1 cap PO DAILY rosuvastatin 5 mg tablet 5 mg PO DAILY guaifenesin 100 mg/5 mL Liquid 200 mg PO Q4H PRN PRN (Reason: Cough) Qty: 473 0RF ipratropium-albuterol 0.5 mg-3 mg(2.5 mg base)/3 mL solution for nebulization 3 ml inhalation Q6H 14 Days Qty: 180 0RF Rx Instructions: Please continue scheduled aerosols for the next 10-14 days and then may return to only as needed. donepezil 5 mg tablet 10 mg PO QHS aspirin 81 mg capsule 81 mg PO DAILY levofloxacin 500 mg tablet 500 mg PO DAILY Qty: 5 0RF nitrofurantoin macrocrystal 100 mg capsule 100 mg PO BID Qty: 10 0RF Rx Instructions: must administer with a meal/food Primary Care Provider: James Leach Referrals: James Leach DO [Primary Care Provider] - Print Language: Greek Disposition Disposition: Home, Self Care
--- NOTE | 2024-08-28 12:33 | ED.RN ---
HH caregiver Noman from [facility] called to given update on what they are seeing. voiced some safety concerns, social work referral placed dr travis also able to contact vince Patel
[2024-08-28] MEDS: Ipratropium/Albuterol Sulfate 3 ML AMPUL.NEB INHALATION (12:37)
[2024-08-28 12:44] LABS: D-Dimer Quantitative (DVT/PE) 1.65 FEU/ug/m (0.27-0.49)
[2024-08-28 12:45] LABS: Reflex Troponin-HS? (from REC) Y
[2024-08-28 13:26] LABS: Troponin-I HS 18 pg/mL (3.0-54.0)
--- NOTE | 2024-08-28 13:30 | CT_ITS ---
EXAM: CT Angiography Chest Without and With Intravenous Contrast CLINICAL INDICATION: TECHNIQUE: Axial computed tomographic angiography images of the chest without and with intravenous contrast. This CT exam was performed using one or more of the following dose reduction techniques: automated exposure control, adjustment of the mA and/or kV according to patient size, and/or use of iterative reconstruction technique. MIP reconstructed images were created and reviewed. COMPARISON: No relevant prior studies available. FINDINGS: LIMITATIONS: Suboptimal opacification of the pulmonary arteries. PULMONARY ARTERIES: No pulmonary embolism is identified. Some of the distal pulmonary arteries cannot be evaluated due to suboptimal opacification. AORTA: No acute findings. No thoracic aortic aneurysm. LUNGS AND PLEURAL SPACES: Lung emphysema/COPD. No mass. No consolidation. No significant effusion. No pneumothorax. HEART: Unremarkable. No cardiomegaly. No significant pericardial effusion. No evidence of RV dysfunction. BONES/JOINTS: Degenerative disc disease and facet arthropathy throughout the thoracic spine. No acute fracture. No dislocation. SOFT TISSUES: Unremarkable. LYMPH NODES: Unremarkable. No enlarged lymph nodes. CT/CTA Chest W/WO Contrast IMPRESSION: 1. No pulmonary embolism is identified. Some of the distal pulmonary arteries cannot be evaluated due to suboptimal opacification. 2. Lung emphysema/COPD. 3. Degenerative changes thoracic spine as described. Reading Location: [facility]
--- NOTE | 2024-08-28 14:52 | ED.RN ---
Pt updated and aware all results are back and will be in to see her.
--- NOTE | 2024-08-28 14:54 | CM.ED ---
Social work Reason for referral: [facility] safety concerns Referral source: Cindy Marquez RN This SW was approached by Cindy Marquez RN who stated that patient's nurse, Noman, from [facility] called in and voiced some safety concerns with patient and the home environment. This SW called Noman's direct number (ph: [phone]), introducing self and role at [facility]. This SW asked for Noman's safety concerns regarding patient. Noman stated patient has been connected with [facility] for [facility] for quite some time. Noman shared that biggest safety concerns for the agency was that patient was reportedly not wearing O2 or the BiPAP like patient should, resulting in patient experiencing chest pain and becoming hypoxic which is leading to multiple ED visits. Noman shared that patient has dementia and that patient's primary caregiver, Tika, is patient's sister in law and is also struggling with mental capacity (in Noman's personal opinion). Noman stated Tika appears totally overwhelmed by patient's care, specifically noting patient's recent extensive O2 tubing. Noman stated patient believes God will heal patient so patient can return home (next door) to patient's own trailer. Noman reported talking with patient's nephew/HCPOA, Jorge, this morning about further supports that patient may be able to receive, including [facility] supports. Noman stated Jorge had previously denied this support, but was more receptive to it today on the phone. This SW asked if [facility] would continue working with patient despite safety concerns and Noman confirmed the agency's ability to do so. Noman stated currently checking on patient weekly due to no direct orders for other services being in place. This SW entered patient's room, introducing self and role at [facility]. Patient welcomed SW visit, though patient stated being annoyed with length of time spent in [facility] ED so far. Patient was open to SW conversation to help pass the time. Patient confirmed living with patient's sister in law, Tika, but desiring to return home (next door) because patient knows God can heal me. Patient stated feeling very comfortable at Tika's home and being very close with Tika, especially after patient's brother/Tika's . Patient confirmed feeling safe with patient's nephew, Jorge, being both HCPOA and financial POA. Patient stated trusting Tika and Jorge and having no concerns with safety. Patient stated having faustino in God, who is with patient 12/02 365. Patient stated knowing Noman as patient's [facility] nurse and appreciating Noman checking in. Per earlier concerns expressed from Noman, this SW reminded patient of the importance of wearing O2 as directed; patient expressed understanding and patient admitted to sometimes being stubborn. While this SW was in patient's room, patient was oriented to time, place, and person. Patient knew parents' names, Jorge's occupation, patient's age, and the year. This SW called patient's nephew/HCPOA, Jorge (ph: [phone]) and introduced self and role at [facility]. Jorge stated having no concerns with patient being cared for by patient's sister in law, Tika; Jorge is Tika's son. Jorge confirmed talking with Noman, [facility] nurse, this morning and hearing about [facility]. Jorge confirmed wanting this SW to make a [facility] referral to see what supports could be offered to patient, stating it would be nice for patient to be checked in on more often. Jorge stated patient's biggest problem is wearing patient's BiPAP, but Jorge stating understanding that it makes patient feel claustrophobic. Jorge denied further needs at this time. Dr. Rodríguez updated. Patient to discharge home to Tika's care pending medical clearance. Referral to [facility] made. Called Noman at [facility] to update; Noman expressed understanding and being grateful for [facility] referral being made. [place], ASSOCIATE CIVIL ENGINEER, ELECTRIC MOTORMAN
--- NOTE | 2024-08-28 16:23 | ED.RN ---
SPOKE W/ SISTER IN-LAW ON THE PHONE. SHE IS COMING W/ HOME O2 TANK FOR PT. D/C.
== END 2024-08-28 17:00 | disposition home or self-care (01) ==
PROVIDERS: Emergency Provider Emergency Medicine; Visit Provider Emergency Medicine
DX: R07.9 Chest pain, unspecified (principal); J96.11 Chronic respiratory failure with hypoxia; G30.9 Alzheimer's disease, unspecified; F02.80 Dementia in other diseases classified elsewhere, unspecified severity, without behavioral disturbance, psychotic disturbance, mood disturbance, and anxiety; J43.9 Emphysema, unspecified; N18.2 Chronic kidney disease, stage 2 (mild); I12.9 Hypertensive chronic kidney disease with stage 1 through stage 4 chronic kidney disease, or unspecified chronic kidney disease; E78.5 Hyperlipidemia, unspecified; Z79.899 Other long term (current) drug therapy; Z99.81 Dependence on supplemental oxygen
CPT/HCPCS: 99285; 71045; 71275; 80048; 84484; 85025; 85379; 87631; 93005; 94640; Q9967; A4216

== ENCOUNTER 2024-08-29 12:51 | Inpatient (IN) | payer MEDICARE, SELFPAY ==
[2024-08-29] VITALS (11 sets, daily range): BP systolic 110–136; BP diastolic 45–74; PULSE 60–74; RESP 14–20; TEMP 36.2–37.2; O2SAT 96–99; BMI 33.4; BMI 48.2
--- NOTE | 2024-08-29 13:01 | EKG12_ITS ---
Test Reason : CP Blood Pressure : */* mmHG Vent. Rate : 83 BPM Atrial Rate : 83 BPM P-R Int : 170 ms QRS Dur : 96 ms QT Int : 376 ms P-R-T Axes : 65 -44 71 degrees QTcB Int : 441 ms Sinus rhythm with marked sinus arrhythmia Left axis deviation Minimal voltage criteria for LVH, may be normal variant ( Gino product ) Abnormal ECG Confirmed by MICKY LOWE, YENNY ([id number]), newspaper managing editor AMBIKA HAYES ([id number]) on 09/01/2024 7:28:36 AM Referred By: Confirmed By: YENNY WEEKS MD
[2024-08-29 13:25] LABS: Absolute Lymphocyte Count 2.03 X10^3/uL (0.83-4.51); Absolute Neutrophil Count 5.5 X10^3/uL (2.0-7.7); Basophil# 0.12 X10^3/uL; Basophil% 1.3 % (0-1); Eosinophil# 0.33 X10^3/uL; Eosinophils% 3.7 % (0-5); Hematocrit 45.9 % (37-47); Hemoglobin 14.4 g/dL (12.0-15.0); Lymphocyte # 2.03 X10^3/ul (0.83-4.51); Lymphocyte % 22.8 % (19-41); Mean Corp Hgb Conc 31.4 g/dL (32-36); Mean Corpuscular Hgb 27.4 pg (27.0-32.0); Mean Corpuscular Volume 87.4 fL (81-99); Mean Platelet Vol. 9.6 fl (6.2-12.0); Monocyte# 0.86 X10^3/uL; Monocyte% 9.7 % (0-10); NRBC Flagged by Analyzer 0 % (0-5); Neutrophil # 5.52 X10^3/uL (2.7-7.7); Neutrophil % 62.1 % (47-70); Platelet Count 369 K/mm3 (150-450); RBC Distribution Width CV 14.6 % (11.6-14.6); RBC Distribution Width SD 46.5 fl (35.1-43.9); Red Blood Count 5.25 M/mm3 (4.2-5.4); White Blood Count 8.9 K/mm3 (4.4-11.0)
[2024-08-29 13:32] LABS: Anion Gap 8 (5-15); BUN 13 mg/dL (7-18); BUN/Creat Ratio 20.2 RATIO (10-20); Calcium,Total 11.2 mg/dL (8.5-10.1); Chloride 105 mmol/L (98-107); Creatinine, Serum 0.64 mg/dL (0.55-1.02); EST Glomerular Filtration Rate 94 mL/min (>60); Est Glom Filt Rate - Afr Amer 113 mL/min (>60); Glucose 101 mg/dL (74-106); Potassium 3.7 mmol/L (3.5-5.1); Sodium Level 141 mmol/L (136-145)
--- NOTE | 2024-08-29 15:15 | EX.ED.DYSGE1 ---
HPI History of Present Illness Chief Complaint: Shortness of Breath Informant: patient Narrative Narrative: Patient is an 83-year-old female with history of chronic hypoxic respiratory failure on 2 L of oxygen at baseline, obstructive sleep apnea that is supposed wear BiPAP but does not tolerate it, dementia presenting to the ER with complaint of shortness of breath and cough. Patient does not know why she is here when I asked her but she does tell me that she does feel little short of breath and has a discomfort in her chest. She points to her left upper parasternal area. She states it does not hurt when she presses on it herself. Patient does tell me that she is ready to rumble and wants to know how long she is going to be in this ER bed. Patient was seen and evaluated in the ER yesterday for report of chest pain. At that time she had a social work evaluation as patient has dementia and is living with her [id number] who it seems also has some dementia. She does have home health. There was concern from her home health that she might need placement but after speaking with the patient's POA (her nephew) decision was made to discharge her home with continued home health. Yesterday patient did not have any admission criteria and was asymptomatic. [facility] Medical History Hypoxia Generalized weakness Pneumonia Hypoxia HLD (hyperlipidemia) HTN (hypertension) CKD (chronic kidney disease), stage II Chronic left hip pain SHIRA (obstructive sleep apnea) Obesity (BMI 30.0-34.9) Alzheimer dementia Osteoporosis Non-smoker BiPAP (biphasic positive airway pressure) dependence COPD (chronic obstructive pulmonary disease) Asthma TIA (transient ischemic attack) Home Medications ?Medication ?Instructions ?Recorded ?Last Taken ?Type albuterol sulfate 90 mcg/actuation 2 puff inhalation .qid PRN wheezing 07/17/24 Unknown History aerosol inhaler ezetimibe 10 mg tablet 10 mg PO DAILY cholesterol 07/17/24 Unknown History furosemide 20 mg tablet 20 mg PO DAILY PRN edema 07/17/24 Unknown History nitroglycerin 0.2 mg/hr 1 patch transdermal DAILY heart 07/17/24 Unknown History transdermal 24 hour patch rosuvastatin 5 mg tablet 5 mg PO DAILY cholesterol 07/17/24 Unknown History triamterene 37.5 1 cap PO DAILY diuretic 07/17/24 Unknown History mg-hydrochlorothiazide 25 mg capsule guaifenesin 100 mg/5 mL oral liquid 200 mg (10 mL) PO Q4H PRN PRN 07/19/24 Unknown Rx Cough #473 mL ipratropium 0.5 mg-albuterol 3 mg 3 ml inhalation Q6H Influenza, 07/19/24 Unknown Rx (2.5 mg base)/3 mL nebulization COPD/Asthma 14 days #180 mL soln aspirin 81 mg capsule 81 mg PO DAILY heart 08/12/24 Unknown History donepezil 5 mg tablet 10 mg PO QHS dementia 08/12/24 Unknown History levofloxacin 500 mg tablet 500 mg PO DAILY #5 tabs 08/15/24 Unknown Rx nitrofurantoin macrocrystal 100 mg 100 mg PO BID #10 caps 08/15/24 Unknown Rx capsule Allergy/AdvReac Type Severity Reaction Status Date / Time aspirin Allergy Unknown PT UNSURE Verified 08/29/24 12:56 OF REACTION cefaclor Allergy PT UNSURE Verified 08/29/24 12:56 OF REACTION chlorzoxazone Allergy PT UNSURE Verified 08/29/24 12:56 OF REACTION codeine Allergy PT UNSURE Verified 08/29/24 12:56 OF REACTION erythromycin base Allergy PT UNSURE Verified 08/29/24 12:56 OF REACTION guanfacine Allergy PT UNSURE Verified 08/29/24 12:56 OF REACTION naproxen Allergy PT UNSURE Verified 08/29/24 12:56 OF REACTION orphenadrine Allergy PT UNSURE Verified 08/29/24 12:56 OF REACTION oxytetracycline Allergy PT UNSURE Verified 08/29/24 12:56 OF REACTION Penicillins Allergy PT UNSURE Verified 08/29/24 12:56 OF REACTION piroxicam Allergy PT UNSURE Verified 08/29/24 12:56 OF REACTION Sulfa (Sulfonamide Allergy PT UNSURE Verified 08/29/24 12:56 Antibiotics) OF REACTION testosterone Allergy PT UNSURE Verified 08/29/24 12:56 OF REACTION Social History household members: 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 Smoking Status: Never smoker alcohol intake: never substance use type: does not use ROS ROS ED Review of Systems ROS Unobtainable: due to mental status EXAM Physical Exam Const Vital Signs: 08/29/24 12:53 08/29/24 12:55 08/29/24 14:12 Temperature 97.3 F L 97.3 F L 98.2 F Temperature Source Oral Oral Oral Pulse Rate 70 70 60 Respiratory Rate 20 H 20 H 14 Respiratory Effort Respiratory Depth Respiratory Pattern Blood Pressure 136/53 H 136/53 H 127/45 H Blood Pressure Mean 80 80 72 Pulse Ox 98 98 97 Oxygen Delivery Method Nasal Cannula Nasal Cannula Room Air Oxygen Flow Rate (L/min) 4 4 08/29/24 14:13 08/29/24 14:13 08/29/24 14:14 Temperature Temperature Source Pulse Rate Respiratory Rate 17 Respiratory Effort Normal Non-Labored Respiratory Depth Normal Respiratory Pattern Normal Blood Pressure Blood Pressure Mean Pulse Ox 96 Oxygen Delivery Method Nasal Cannula Nasal Cannula Nasal Cannula Oxygen Flow Rate (L/min) 2 2 2 08/29/24 15:16 08/29/24 15:25 Temperature Temperature Source Pulse Rate 60 70 Respiratory Rate 16 16 Respiratory Effort Respiratory Depth Respiratory Pattern Normal Blood Pressure 125/74 H Blood Pressure Mean 91 Pulse Ox 96 Oxygen Delivery Method Nasal Cannula Oxygen Flow Rate (L/min) 2 Positive well nourished and well developed General Appearance ED: well developed and NAD; Negative for pallor HEENT Reports moist mucous membranes Eyes PERRL Neck supple and no JVD Chest Wall inspection of chest normal and palpation of chest normal Chest Narrative: No chest wall tenderness on exam. No chest wall crepitus. Resp normal respiratory effort Resp Narrative: Slightly diminished at the bases, left more than right Auscultation: Negative for rhonchi or wheezes Cardio regular rate and regular rhythm GI normal to inspection, nondistended, normoactive bowel sounds and non-tender Extremity normal to inspection General Extremety ED: Negative for edema General Extremity: Negative for edema Neuro Neuro Narrative: Patient at her baseline. No focal deficits appreciated. Sensorium / Orientation: alert and orientation impaired Motor Exam: Negative for general weakness Psych mental status grossly normal Attitude: agitated Skin no rashes or lesions noted and no wounds General Skin Exam: Negative for pallor MDM MDM MDM Narrative Medical decision making narrative: Patient evaluated for report of chest pain and some shortness of breath. Patient peers nontoxic. Vital signs are normal. She is on her baseline 2 L of oxygen. I will obtain cardiopulmonary workup. Patient had a negative CTA of her chest yesterday and I do not think she requires repeat workup for pulmonary emboli especially as she no increased O2 demands or vital sign changes. Suspect at this point this is more of a social issue. Will get social work involved to speak with the patient's POA to see if she needs to come in for placement at this point. It sounds like patient needs more support at home and she is getting/family is capable of giving at this time. Workup overall is very reassuring and normal. Chest x-ray does not show any acute change compared to yesterday. This is on my review, formal radiology interpretation pending. Labs otherwise stable. O2 demands stable. Patient will be admitted to hospitalist service for placement as patient likely needs higher level of care than what can be provided at home. Social work spoke with the patient's POA, Jorge, who is in agreement at this time. Patient is agreeable with placement as well. Patient is given a dose of Zyprexa in the emergency room for some agitation. Lab Data Attestation: I reviewed the patient's lab results. Labs: Laboratory Results - last 24 hr 08/29/24 13:14 WBC 8.9 RBC 5.25 Hgb 14.4 Hct 45.9 MCV 87.4 MCH 27.4 MCHC 31.4 L RDW Std Deviation 46.5 H RDW Coeff of Jaz 14.6 Plt Count 369 MPV 9.6 Immature Gran % (Auto) 0.400 Neut % (Auto) 62.1 Lymph % (Auto) 22.8 [place] % (Auto) 9.7 Eos % (Auto) 3.7 Baso % (Auto) 1.3 H Absolute Neuts (auto) 5.5 Absolute Lymphs (auto) 2.03 Nucleated RBC % 0 Sodium 141 Potassium 3.7 Chloride 105 Carbon Dioxide 28.0 Anion Gap 8 BUN 13 Creatinine 0.64 Est GFR (MDRD) Af Amer 113 Est GFR (MDRD) Non-Af 94 BUN/Creatinine Ratio 20.2 H Glucose 101 Calcium 11.2 H Troponin I High Sens 24 Rhythm Strip Rhythm Strip: Sinus Rhythm Rate: 83 Ectopy: None EKG Initial EKG: Attestation: I personally reviewed and interpreted this EKG as follows: Interpretation: Sinus Rhythm Comments: Normal sinus rhythm at a rate of 83 bpm with sinus arrhythmia Left axis deviation Minimal voltage criteria for LVH Normal ST segments Prior EKG tracings: available for review Prior: Unchanged Management Discussion w/another healthcare provider: Hospitalist and glassworker/Case management Discharge Plan Triage Chief Complaint: Shortness of Breath ED Provider: Violeta Rodríguez Dx/Rx/DC Orders Clinical Impression: Dementia, Chest pain Prescriptions: No Action albuterol sulfate 90 mcg/actuation HFA aerosol inhaler 2 puff INHALATION .qid PRN (Reason: wheezing) Patient Comments: inhale 2 puffs by mouth up to four times a day if needed furosemide 20 mg tablet 20 mg PO DAILY PRN (Reason: edema) ezetimibe 10 mg tablet 10 mg PO DAILY nitroglycerin 0.2 mg/hr patch 24 hour 1 patch transdermal DAILY triamterene-hydrochlorothiazid 37.5-25 mg capsule 1 cap PO DAILY rosuvastatin 5 mg tablet 5 mg PO DAILY guaifenesin 100 mg/5 mL Liquid 200 mg PO Q4H PRN PRN (Reason: Cough) Qty: 473 0RF ipratropium-albuterol 0.5 mg-3 mg(2.5 mg base)/3 mL solution for nebulization 3 ml inhalation Q6H 14 Days Qty: 180 0RF Rx Instructions: Please continue scheduled aerosols for the next 10-14 days and then may return to only as needed. donepezil 5 mg tablet 10 mg PO QHS aspirin 81 mg capsule 81 mg PO DAILY levofloxacin 500 mg tablet 500 mg PO DAILY Qty: 5 0RF nitrofurantoin macrocrystal 100 mg capsule 100 mg PO BID Qty: 10 0RF Rx Instructions: must administer with a meal/food Primary Care Provider: James Leach Referrals: James Leach DO [Primary Care Provider] - Print Language: Bulgarian Disposition Disposition: Acute Care Hospital [facility]
[2024-08-29] MEDS: Ipratropium/Albuterol Sulfate 3 ML AMPUL.NEB INHALATION (15:25)
--- NOTE | 2024-08-29 15:38 | CM.ED ---
Social Work Patient presented to the ER with shortness of breath and cough, patient had also been in the ER yesterday. 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 SW met with patient and asked patient if she felt she was able to care for self, patient told SW she did not feel that she was able. Patient stated she would be okay with a SNF stay if her nephew agreed. SW contacted patients nephew Jorge, who is patients HPOA. Jorge stated he was in agreement if that was the recommendation. Patient notified nephew agreed to SNF stay. No further needs identified at this time. Mago Up, FOLDER GLUER OPERATOR, LEVELING MACHINE OPERATOR
[2024-08-29] MEDS: OLANZapine 10 MG Tablet PO (15:58)
--- NOTE | 2024-08-29 16:00 | RAD_ITS ---
PROCEDURE: CHEST 1 VIEW (PORTABLE) REASON FOR EXAM: Shortness of breath. History of chronic hypoxic respiratory failure. TECHNIQUE: Frontal view of the chest. COMPARISON: 08/28/2024 FINDINGS: The cardiac and mediastinal or limited in evaluation secondary to patient rotation. Aortic calcifications are noted. No pleural effusion or pneumothorax. Atelectasis versus infiltrate noted at the left lung base. The visualized osseous structures demonstrate degenerative changes. RAD/Chest 1 View (Portable) IMPRESSION: Atelectasis versus infiltrate noted at the left lung base. This appears to be a new finding when compared to the prior study. Reading Location: [id number]
[2024-08-29 16:16] LABS: Troponin-I HS (w/2H Reflex) 24 pg/mL (3.0-54.0)
--- NOTE | 2024-08-29 16:24 | PCM.HP.STD ---
[facility] - General General Date of Admission: 08/29/24 Date of Service: 08/29/24 Chief Complaint: Short of breath, failure to thrive HPI Narrative YURI QUINTERO, is a 83-year-old female history of chronic hypoxic respiratory failure on 2 L home O2, asthma, SHIRA, hypertension, dementia presented [facility] ED 08/29/24 due to shortness of breath. She was in the ED yesterday complaining of chest pain through the center of her chest and intermittent dizziness. Chest x-ray and CTA no acute process, COVID-negative and lab workup negative so she is discharged home in stable condition however represents due to possibly some shortness of breath and a little bit of discomfort in her chest in the left upper parasternal area. She was here yesterday and did not have any admission criteria and was asymptomatic, social work was aware of her as she lives with her [id number]-[id number] who also has some dementia, she does have home health but there is concern she may need placement however her nephew ultimately decided they were comfortable with discharge home with continued home health. Repeat lab work on patient today unremarkable and CTA not reobtained given full workup was just done yesterday and was negative. There was concern however about patient going home and safety of this so hospitalist contacted for admission. Patient evaluated at bedside, she reports she is here because of shortness of breath and has had a little bit of a dry cough but denies any chest pain, no fevers, denies any problems with urination, no abdominal pain or nausea or diarrhea. Other than feeling more short of breath over the past couple of days she has no other acute complaints. [facility] Medical History Hypoxia Generalized weakness Pneumonia Hypoxia HLD (hyperlipidemia) HTN (hypertension) CKD (chronic kidney disease), stage II Chronic left hip pain SHIRA (obstructive sleep apnea) Obesity (BMI 30.0-34.9) Alzheimer dementia Osteoporosis Non-smoker BiPAP (biphasic positive airway pressure) dependence COPD (chronic obstructive pulmonary disease) Asthma TIA (transient ischemic attack) Home Medications ?Medication ?Instructions ?Recorded ?Last Taken ?Type albuterol sulfate 90 mcg/actuation 2 puff inhalation .qid PRN wheezing 07/17/24 Unknown History aerosol inhaler ezetimibe 10 mg tablet 10 mg PO DAILY cholesterol 07/17/24 Unknown History furosemide 20 mg tablet 20 mg PO DAILY PRN edema 07/17/24 Unknown History nitroglycerin 0.2 mg/hr 1 patch transdermal DAILY heart 07/17/24 Unknown History transdermal 24 hour patch rosuvastatin 5 mg tablet 5 mg PO DAILY cholesterol 07/17/24 Unknown History triamterene 37.5 1 cap PO DAILY diuretic 07/17/24 Unknown History mg-hydrochlorothiazide 25 mg capsule guaifenesin 100 mg/5 mL oral liquid 200 mg (10 mL) PO Q4H PRN PRN 07/19/24 Unknown Rx Cough #473 mL ipratropium 0.5 mg-albuterol 3 mg 3 ml inhalation Q6H Influenza, 07/19/24 Unknown Rx (2.5 mg base)/3 mL nebulization COPD/Asthma 14 days #180 mL soln aspirin 81 mg capsule 81 mg PO DAILY heart 08/12/24 Unknown History donepezil 5 mg tablet 10 mg PO QHS dementia 08/12/24 Unknown History levofloxacin 500 mg tablet 500 mg PO DAILY #5 tabs 08/15/24 Unknown Rx nitrofurantoin macrocrystal 100 mg 100 mg PO BID #10 caps 08/15/24 Unknown Rx capsule Allergy/AdvReac Type Severity Reaction Status Date / Time aspirin Allergy Unknown PT UNSURE Verified 08/29/24 12:56 OF REACTION cefaclor Allergy PT UNSURE Verified 08/29/24 12:56 OF REACTION chlorzoxazone Allergy PT UNSURE Verified 08/29/24 12:56 OF REACTION codeine Allergy PT UNSURE Verified 08/29/24 12:56 OF REACTION erythromycin base Allergy PT UNSURE Verified 08/29/24 12:56 OF REACTION guanfacine Allergy PT UNSURE Verified 08/29/24 12:56 OF REACTION naproxen Allergy PT UNSURE Verified 08/29/24 12:56 OF REACTION orphenadrine Allergy PT UNSURE Verified 08/29/24 12:56 OF REACTION oxytetracycline Allergy PT UNSURE Verified 08/29/24 12:56 OF REACTION Penicillins Allergy PT UNSURE Verified 08/29/24 12:56 OF REACTION piroxicam Allergy PT UNSURE Verified 08/29/24 12:56 OF REACTION Sulfa (Sulfonamide Allergy PT UNSURE Verified 08/29/24 12:56 Antibiotics) OF REACTION testosterone Allergy PT UNSURE Verified 08/29/24 12:56 OF REACTION Social History household members: 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 Smoking Status: Never smoker alcohol intake: never substance use type: does not use ROS ROS Narrative General: Denies fever/chills HENT: Denies headache, denies stuffy nose, denies sore throat EYES: Denies changes in vision Resp: Consult more short of breath over the past couple days with dry cough Cardiac: Denies chest pain GI: Denies abdominal pain, denies changes in bowel, denies nausea/vomiting : Denies changes in urination Extremity: Denies swelling MSK: Feels a little bit generally weak Neuro: Denies any numbness/tingling Heme: Denies any bleeding or bruising Skin: Denies rashes Psychiatric: No complaints voiced Vital Signs Vital Signs Vital Signs: 08/29/24 12:53 08/29/24 12:55 08/29/24 14:12 Temperature 97.3 F L 97.3 F L 98.2 F Temperature Source Oral Oral Oral Pulse Rate 70 70 60 Respiratory Rate 20 H 20 H 14 Respiratory Effort Respiratory Depth Respiratory Pattern Blood Pressure 136/53 H 136/53 H 127/45 H Blood Pressure Mean 80 80 72 Pulse Ox 98 98 97 Oxygen Delivery Method Nasal Cannula Nasal Cannula Room Air Oxygen Flow Rate (L/min) 4 4 08/29/24 14:13 08/29/24 14:13 08/29/24 14:14 Temperature Temperature Source Pulse Rate Respiratory Rate 17 Respiratory Effort Normal Non-Labored Respiratory Depth Normal Respiratory Pattern Normal Blood Pressure Blood Pressure Mean Pulse Ox 96 Oxygen Delivery Method Nasal Cannula Nasal Cannula Nasal Cannula Oxygen Flow Rate (L/min) 2 2 2 08/29/24 15:16 08/29/24 15:25 Temperature Temperature Source Pulse Rate 60 70 Respiratory Rate 16 16 Respiratory Effort Respiratory Depth Respiratory Pattern Normal Blood Pressure 125/74 H Blood Pressure Mean 91 Pulse Ox 96 Oxygen Delivery Method Nasal Cannula Oxygen Flow Rate (L/min) 2 Weight Weight: 75.1 kg Body Mass Index (BMI) 33.4 Physical Exam Narrative General: Alert, no apparent distress HEENT: Atraumatic, normocephalic Eyes: Anicteric, normal conjunctiva, extraocular movements grossly intact Neck: Supple Respiratory: Fine crackles at the bases, normal respiratory effort Cardiovascular: Regular rate GI: Soft, nontender, nondistended Extremities: No edema Musculoskeletal: Moving all extremities Neuro: No overt focal neurological deficits Skin: No rashes appreciated Psych: Cooperative Results Lab / Micro Data 08/29/24 13:14 08/29/24 13:14 Labs: Laboratory Results - last 24 hr 08/29/24 13:14: WBC 8.9, RBC 5.25, Hgb 14.4, Hct 45.9, MCV 87.4, MCH 27.4, MCHC 31.4 L, RDW Std Deviation 46.5 H, RDW Coeff of Jaz 14.6, Plt Count 369, MPV 9.6, Immature Gran % (Auto) 0.400, Neut % (Auto) 62.1, Lymph % (Auto) 22.8, [place] % (Auto) 9.7, Eos % (Auto) 3.7, Baso % (Auto) 1.3 H, Absolute Neuts (auto) 5.5, Absolute Lymphs (auto) 2.03, Nucleated RBC % 0, Sodium 141, Potassium 3.7, Chloride 105, Carbon Dioxide 28.0, Anion Gap 8, BUN 13, Creatinine 0.64, Est GFR (MDRD) Af Amer 113, Est GFR (MDRD) Non-Af 94, BUN/Creatinine Ratio 20.2 H, Glucose 101, Calcium 11.2 H, Troponin I High Sens 24 Rhythm Strip Rhythm Strip: Sinus Rhythm Rate: 83 Ectopy: None Assessment & Plan Assessment/Plan (1) Dementia: PLAN: Plan # Failure to thrive -Patient overall is outpatient failure to thrive and does not seem to be able to care for herself at home any longer -PT/OT -Case management social work consult -Also check UA #Hypercalcemia -Unclear etiology -Will check Phos, vitamin D, PTH -Gentle IV fluids # History of asthma/COPD with chronic hypoxic respiratory failure on 2 L home O2 ? Presently on her home oxygen ? Continue inhalers -Patient endorses increased shortness of breath but workup thus far has been negative and patient has no increased work of breathing or increased oxygen requirement -COVID/RSV/flu negative yesterday, will check respiratory panel #SHIRA -Patient has not been tolerating BiPAP and has been noncompliant #Dementia -Supportive care -Continue home donepezil once verified #Hypertension -Continue patient's home medications once verified #DVT ppx: lovenox subq Betty Mike MD Charges/Coding Visit Charges Inpatient E&M: 04781 Init Hosp L1
[2024-08-29] MEDS: Ceftriaxone 1 GM/50 ML BAG IV (17:06)
[2024-08-29] MEDS: Azithromycin 500 MG in 0.9% Normal Saline (250mL Bag) 250 ML 255 MG IV (17:53)
--- NOTE | 2024-08-29 17:57 | PCM.HOSP.N ---
Hospitalist Note Patient's chest x-ray this time did read out early pneumonia, given this with her symptoms we will start her on CAP coverage
[2024-08-29 18:00] LABS: Reflex Troponin-HS? (from REC) Y
[2024-08-29 22:59] LABS: Troponin-I HS 25 pg/mL (3.0-54.0)
[2024-08-29] MEDS: 0.9% Normal Saline (1000mL) 1,000 ML 50 ML IV (23:06)
[2024-08-29] MEDS: Senna/Docusate Sodium 1 Tablet 2 TABLET PO (23:07)
[2024-08-30] VITALS (10 sets, daily range): BP systolic 102–126; BP diastolic 34–80; PULSE 64–88; RESP 16–23; TEMP 36.8–37.2; O2SAT 94–98
[2024-08-30] MEDS: Ipratropium/Albuterol Sulfate 3 ML AMPUL.NEB INHALATION ×3 (00:44→13:43)
[2024-08-30 03:35] LABS: Color, Urine Yellow (Yellow); Glucose, Dipstick Normal (Normal); Ketone-Dipstick Negative (Negative); Leukocyte Esterase-Dipstick 25 /ul (Negative); Mucous, Urine 0 SEEN /hpf (<or=2+); Nitrite-Dipstick Negative (Negative); Occult Blood-Urine Negative /ul (Negative); Protein-Dipstick 15 mg/dl (Negative); Urine Bilirubin Dipstick Negative (Negative); Urine Clarity Clear (Clear); Urine Urobilinogen Normal (Normal); White Blood Cells 0 SEEN /hpf (0-5)
[2024-08-30 03:47] LABS: Bacteria RARE /hpf (None Seen); Red Blood Cells-Urine 0-5 SEEN /hpf (0-5); Squamous Epithelial Cells - UA 0-5 SEEN /hpf (5-10)
[2024-08-30 07:24] LABS: Absolute Lymphocyte Count 1.38 X10^3/uL (0.83-4.51); Absolute Neutrophil Count 5.7 X10^3/uL (2.0-7.7); Basophil# 0.09 X10^3/uL; Basophil% 1.1 % (0-1); Eosinophil# 0.31 X10^3/uL; Eosinophils% 3.7 % (0-5); Hematocrit 39.2 % (37-47); Hemoglobin 12.1 g/dL (12.0-15.0); Lymphocyte # 1.38 X10^3/ul (0.83-4.51); Lymphocyte % 16.4 % (19-41); Mean Corp Hgb Conc 30.9 g/dL (32-36); Mean Corpuscular Hgb 27.4 pg (27.0-32.0); Mean Corpuscular Volume 88.9 fL (81-99); Mean Platelet Vol. 10.1 fl (6.2-12.0); Monocyte# 0.91 X10^3/uL; Monocyte% 10.8 % (0-10); NRBC Flagged by Analyzer 0 % (0-5); Neutrophil # 5.68 X10^3/uL (2.7-7.7); Neutrophil % 67.8 % (47-70); Platelet Count 305 K/mm3 (150-450); RBC Distribution Width SD 48.7 fl (35.1-43.9); Red Blood Count 4.41 M/mm3 (4.2-5.4); White Blood Count 8.4 K/mm3 (4.4-11.0)
--- NOTE | 2024-08-30 07:39 | PN.HOSP_ITS ---
Reason for Visit Reason for Visit: Diagnoses Unspecified dementia, unspecified severity, without behavioral disturbance, psychotic disturbance, mood disturbance, and anxiety (08/29/24) Subjective Subjective Patient is an 83-year-old female who presented to the emergency department with shortness of breath and cough. An assessment of community-acquired pneumonia was made in addition to adult failure to thrive admitted to regular nursing floor for further management Objective Data Objective Data Vital Signs: Vital Signs Temp Pulse Resp BP Pulse Ox O2 Del Method O2 Flow Rate 99.0 F 64 20 H 109/80 94 Nasal Cannula 3 08/30/24 03:00 08/30/24 07:30 08/30/24 07:30 08/30/24 03:00 08/30/24 07:30 08/30/24 07:30 08/30/24 07:30 Oxygen Flow Rate (L/min) 3 Oxygen Delivery Method Nasal Cannula Weight: 74.644 kg Body Mass Index (BMI) 48.2 Intake & Output: Intake and Output for Last 24 Hours 08/28/24 08/29/24 08/30/24 23:59 23:59 23:59 Intake Total 305 / 305 Balance 305 / 305 Lab / Micro Data 08/30/24 06:20 08/30/24 06:20 Labs: Laboratory Results - last 24 hr 08/29/24 13:14: WBC 8.9, RBC 5.25, Hgb 14.4, Hct 45.9, MCV 87.4, MCH 27.4, MCHC 31.4 L, RDW Std Deviation 46.5 H, RDW Coeff of Jaz 14.6, Plt Count 369, MPV 9.6, Immature Gran % (Auto) 0.400, Neut % (Auto) 62.1, Lymph % (Auto) 22.8, [place] % (Auto) 9.7, Eos % (Auto) 3.7, Baso % (Auto) 1.3 H, Absolute Neuts (auto) 5.5, Absolute Lymphs (auto) 2.03, Nucleated RBC % 0, Sodium 141, Potassium 3.7, Chloride 105, Carbon Dioxide 28.0, Anion Gap 8, BUN 13, Creatinine 0.64, Est GFR (MDRD) Af Amer 113, Est GFR (MDRD) Non-Af 94, BUN/Creatinine Ratio 20.2 H, Glucose 101, Calcium 11.2 H, Troponin I High Sens 24 08/29/24 22:28: Troponin I High Sens 25, Vitamin D 25-Hydroxy 38.0 08/30/24 03:18: Urine Color Yellow, Urine Clarity Clear, Urine pH 6.0, Ur Specific Crowell 1.020, Urine Protein 15 H, Urine Glucose (UA) Normal, Urine Ketones Negative, Urine Occult Blood Negative, Urine Nitrite Negative, Urine Bilirubin Negative, Urine Urobilinogen Normal, Ur Leukocyte Esterase 25 H, Urine RBC 0-5 SEEN, Urine WBC 0 SEEN, Ur Squamous Epith Cells 0-5 SEEN, Urine Bacteria RARE, Urine Mucus 0 SEEN 08/30/24 06:20: WBC 8.4, RBC 4.41, Hgb 12.1, Hct 39.2, MCV 88.9, MCH 27.4, MCHC 30.9 L, RDW Std Deviation 48.7 H, RDW Coeff of Jaz 15.0 H, Plt Count 305, MPV 10.1, Immature Gran % (Auto) 0.200, Neut % (Auto) 67.8, Lymph % (Auto) 16.4 L, M gee % (Auto) 10.8 H, Eos % (Auto) 3.7, Baso % (Auto) 1.1 H, Absolute Neuts (auto) 5.7, Absolute Lymphs (auto) 1.38, Nucleated RBC % 0 Micro: Microbiology 08/30/24 00:40 Mucosa - Nasopharyngeal Respiratory Panel (PCR) - Final Radiography Diagnostic Testing: Radiology Impression Chest X-Ray 08/29/24 16:00 IMPRESSION: Atelectasis versus infiltrate noted at the left lung base. This appears to be a new finding when compared to the prior study. Reading Location: [facility] Rhythm Strip Rhythm Strip: Sinus Rhythm Rate: 83 Ectopy: None Physical Exam Narrative GENERAL: cooperative HEENT: Atraumatic; normocephalic EYES; Anicteric, Normal Conjunctiva NECK; supple, normal thyroid, RESPIRATORY: Diminished to auscultation CARDIOVASCULAR: Regular S1 S2, GI: soft, normoactive bowel sounds, : No Renal angle tenderness; EXTREMITIES: No edema, no clubbing, MUSCULOSKELETAL: no muscle wasting NEURO: Awake; no lateralizing signs. SKIN: No Rash PSYCH; Flat affect Assessment & Plan Assessment/Plan (1) Dementia: PLAN: Plan Patient is an 83-year-old female who presented to the emergency department with shortness of breath and cough. An assessment of community-acquired pneumonia was made in addition to adult failure to thrive admitted to regular nursing floor for further management 1. Pneumonia - Suspected to be secondary to streptococcal pneumonia, chest obtained on admission demonstrated Atelectasis versus infiltrate noted at the left lung base. Blood and sputum cultures sent. Patient placed on Levaquin and placed on oxygen titrated to keep Pulse Ox greater than 90 2. Physical deconditioning secondary to age-related debility ? Requested for PT OT eval and manager social responsibility to assist with discharge planning 3. Hypercalcemia -Unclear etiology, phosphate vitamin D and PTH ordered on admission patient started on gentle rehydration with subsequent monitoring with daily BMPs ordered 4. Chronic hypoxic respiratory failure ? Secondary to combination of asthma and COPD patient is on home oxygen 2 L at rest 5. Obstructive sleep apnea ? Consistent use of PAP therapy encouraged 6. Dyslipidemia ?Patient is on statin therapy, continued at home dose 7. Hypertension ? Blood pressure controlled, home medications continued with dose adjustment as needed 8. Dementia ? Patient is on donepezil in addition to supportive care 9. DVT prophylaxis ? On enoxaparin Time spent in the patient's overall evaluation,decision-making process, review of diagnostic data, adjustment of management, discussion with other providers, nursing nursing and ancillary staff involved in patient's care documentation, 50 Minutes Charges/Coding Visit Charges Inpatient E&M: 68537 [facility] L3
[2024-08-30 07:56] LABS: Anion Gap 4 (5-15); BUN 15 mg/dL (7-18); BUN/Creat Ratio 27.3 RATIO (10-20); Calcium,Total 10.4 mg/dL (8.5-10.1); Chloride 111 mmol/L (98-107); Creatinine, Serum 0.55 mg/dL (0.55-1.02); EST Glomerular Filtration Rate 112 mL/min (>60); Est Glom Filt Rate - Afr Amer 136 mL/min (>60); Estimated Creatinine Clearance 48.92 ml/min; Glucose 92 mg/dL (74-106); Phosphorus 2.9 mg/dL (2.5-4.9); Potassium 3.8 mmol/L (3.5-5.1); Sodium Level 143 mmol/L (136-145)
[2024-08-30] MEDS: Ceftriaxone 2 GM in 0.9% Normal Saline (50mL MB+) 50 ML IV (11:38)
--- NOTE | 2024-08-30 11:40 | CASEMGMT ---
Addendum entered by Laura Vu 08/30/24 11:56: Social Work- SW met with pt; introduced self and role. Pt reports that she is feeling a little better today. SW explained to pt that SW will follow up after pt has worked with therapy and left the SNF list in pt room for her to look over with nephew. Pt was agreeable. SW remains available to follow. MOI Miller Original Note: Social Work- SW spoke with pt nephew to discuss discharge preferences. Pt nephew would like a list emailed to [email or web address]. SW emailed a list of SNF providers including quality and resource use data and consistent with the patient?s preferred geographic region, medical needs, and insurance network were provided via the [employer] Link. SW also left a printed list in pt room. SW discussed long-term vs skilled; pt has not had therapy at this time to see what her therapy needs are. SW will follow up with nephew Sunday to further discuss discharge planning after therapy has been involved. KENYATTA remains available to follow. MOI Miller
[2024-08-30] MEDS: Enoxaparin 40 MG/0.4 ML Syringe SC (11:42)
[2024-08-30] MEDS: Senna/Docusate Sodium 1 Tablet 2 TABLET PO ×2 (11:42→20:49)
[2024-08-30] MEDS: Azithromycin 500 MG in 0.9% Normal Saline (250mL Bag) 250 ML 255 MG IV (11:43)
--- NOTE | 2024-08-30 12:31 | CASEMGMT ---
Met with pt to complete SCHULER form. Pt sleeping at this time and pt nephew/ legal customer service representative at bedside. SCHULER form explained to pt nephew at this time who voiced understanding and signed form. Original form placed in pt?s chart and copy provided to the pt. Fazal Razo RN CM
[2024-08-30] MEDS: MELATONIN 10 MG TABLET PO (20:49)
[2024-08-30] MEDS: 0.9% Saline Lock 10 ML Syringe IV (20:56)
[2024-08-30 22:57] LABS: PTHIN 56.8 pg/mL (18.4-80.1)
[2024-08-31] VITALS (9 sets, daily range): BP systolic 110–122; BP diastolic 51–76; PULSE 59–91; RESP 16–20; TEMP 36.5–37.1; O2SAT 92–96
[2024-08-31 06:49] LABS: Absolute Lymphocyte Count 1.44 X10^3/uL (0.83-4.51); Absolute Neutrophil Count 3.6 X10^3/uL (2.0-7.7); Basophil# 0.08 X10^3/uL; Basophil% 1.3 % (0-1); Eosinophil# 0.38 X10^3/uL; Eosinophils% 6.1 % (0-5); Hemoglobin 11.8 g/dL (12.0-15.0); Lymphocyte # 1.44 X10^3/ul (0.83-4.51); Mean Corp Hgb Conc 31.9 g/dL (32-36); Mean Corpuscular Hgb 28.4 pg (27.0-32.0); Mean Corpuscular Volume 88.9 fL (81-99); Mean Platelet Vol. 10.1 fl (6.2-12.0); Monocyte# 0.74 X10^3/uL; Monocyte% 11.8 % (0-10); NRBC Flagged by Analyzer 0 % (0-5); Neutrophil # 3.61 X10^3/uL (2.7-7.7); Neutrophil % 57.5 % (47-70); Platelet Count 283 K/mm3 (150-450); RBC Distribution Width CV 14.9 % (11.6-14.6); RBC Distribution Width SD 48.6 fl (35.1-43.9); Red Blood Count 4.16 M/mm3 (4.2-5.4); White Blood Count 6.3 K/mm3 (4.4-11.0)
[2024-08-31] MEDS: Ipratropium/Albuterol Sulfate 3 ML AMPUL.NEB INHALATION ×3 (07:15→19:52)
[2024-08-31 07:23] LABS: Anion Gap 4 (5-15); BUN 13 mg/dL (7-18); BUN/Creat Ratio 26.1 RATIO (10-20); Calcium,Total 9.9 mg/dL (8.5-10.1); Chloride 111 mmol/L (98-107); EST Glomerular Filtration Rate 126 mL/min (>60); Est Glom Filt Rate - Afr Amer 152 mL/min (>60); Estimated Creatinine Clearance 48.92 ml/min; Glucose 97 mg/dL (74-106); Magnesium 1.9 mg/dL (1.6-2.6); Phosphorus 2.8 mg/dL (2.5-4.9); Potassium 3.6 mmol/L (3.5-5.1); Sodium Level 142 mmol/L (136-145)
--- NOTE | 2024-08-31 07:33 | PN.HOSP_ITS ---
Reason for Visit Reason for Visit: Diagnoses Unspecified dementia, unspecified severity, without behavioral disturbance, psychotic disturbance, mood disturbance, and anxiety (08/30/24) Subjective Subjective Patient seen remains on supplemental oxygen. Patient also remains deconditioned and complains of feeling weak and dizzy. Case was discussed with case management the day prior plan is for patient to be discharged to intermediate facility Objective Data Objective Data Vital Signs: Vital Signs Temp Pulse Resp BP Pulse Ox O2 Del Method O2 Flow Rate 98.7 F 62 16 110/57 L 96 Nasal Cannula 2 08/31/24 02:30 08/31/24 02:30 08/31/24 02:30 08/31/24 02:30 08/31/24 02:30 08/31/24 02:35 08/31/24 02:35 Oxygen Flow Rate (L/min) 2 Oxygen Delivery Method Nasal Cannula Weight: 74.644 kg Body Mass Index (BMI) 48.2 Intake & Output: Intake and Output for Last 24 Hours 08/29/24 08/30/24 08/31/24 23:59 23:59 23:59 Intake Total 305 / 305 2255 / 2455 200 / 200 Balance 305 / 305 2255 / 2455 200 / 200 Lab / Micro Data 08/31/24 06:05 08/31/24 06:05 Labs: Laboratory Results - last 24 hr 08/30/24 06:20: Sodium 143, Potassium 3.8, Chloride 111 H, Carbon Dioxide 28.0, Anion Gap 4 L, BUN 15, Creatinine 0.55, Estim Creat Clear Calc 48.92, Est GFR (MDRD) Af Amer 136, Est GFR (MDRD) Non-Af 112, BUN/Creatinine Ratio 27.3 H, Glucose 92, Calcium 10.4 H, Phosphorus 2.9, Magnesium 2.0, TSH 1.470, PTH Intact 56.8 08/31/24 06:05: WBC 6.3, RBC 4.16 L, Hgb 11.8 L, Hct 37.0, MCV 88.9, MCH 28.4, M CHC 31.9 L, RDW Std Deviation 48.6 H, RDW Coeff of Jaz 14.9 H, Plt Count 283, MPV 10.1, Immature Gran % (Auto) 0.300, Neut % (Auto) 57.5, Lymph % (Auto) 23.0, [place] % (Auto) 11.8 H, Eos % (Auto) 6.1 H, Baso % (Auto) 1.3 H, Absolute Neuts (auto) 3.6, Absolute Lymphs (auto) 1.44, Nucleated RBC % 0, Sodium 142, Potassium 3.6, Chloride 111 H, Carbon Dioxide 27.0, Anion Gap 4 L, BUN 13, C reatinine 0.50 L, Estim Creat Clear Calc 48.92, Est GFR (MDRD) Af Amer 152, Est GFR (MDRD) Non-Af 126, BUN/Creatinine Ratio 26.1 H, Glucose 97, Calcium 9.9, Phosphorus 2.8, Magnesium 1.9 Micro: Microbiology 08/30/24 00:40 Mucosa - Nasopharyngeal Respiratory Panel (PCR) - Final Rhythm Strip Rhythm Strip: Sinus Rhythm Rate: 83 Ectopy: None Physical Exam Narrative GENERAL: cooperative HEENT: Atraumatic; normocephalic EYES; Anicteric, Normal Conjunctiva NECK; supple, normal thyroid, RESPIRATORY: Diminished to auscultation CARDIOVASCULAR: Regular S1 S2, GI: soft, normoactive bowel sounds, : No Renal angle tenderness; EXTREMITIES: No edema, no clubbing, MUSCULOSKELETAL: no muscle wasting NEURO: Awake; no lateralizing signs. SKIN: No Rash PSYCH; Flat affect Assessment & Plan Assessment/Plan (1) Dementia: PLAN: Plan Patient is an 83-year-old female who presented to the emergency department with shortness of breath and cough. An assessment of community-acquired pneumonia was made in addition to adult failure to thrive admitted to regular nursing floor for further management 1. Pneumonia - Suspected to be secondary to streptococcal pneumonia, chest obtained on admission demonstrated Atelectasis versus infiltrate noted at the left lung base. Blood and sputum cultures sent. Patient placed on Levaquin and placed on oxygen titrated to keep Pulse Ox greater than 90 ? 08/31/2024; patient remains on supplemental ox 2. Physical deconditioning secondary to age-related debility ? Requested for PT OT eval and social work coordinator to assist with discharge planning ? 08/31/2024; Case was discussed with case management plans for patient to be discharged to intermediate facility pending insurance approval 3. Hypercalcemia -Unclear etiology, phosphate vitamin D and PTH ordered on admission patient started on gentle rehydration with subsequent monitoring with daily BMPs ordered ? 08/31/2024; patient calcium levels normalized. PTH was 56.8 (within normal limits) 4. Chronic hypoxic respiratory failure ? Secondary to combination of asthma and COPD patient is on home oxygen 2 L at rest 5. Obstructive sleep apnea ? Consistent use of PAP therapy encouraged 6. Dyslipidemia ?Patient is on statin therapy, continued at home dose 7. Hypertension ? Blood pressure controlled, home medications continued with dose adjustment as needed 8. Dementia ? Patient is on donepezil in addition to supportive care 9. DVT prophylaxis ? On enoxaparin Time spent in the patient's overall evaluation,decision-making process, review of diagnostic data, adjustment of management, discussion with other providers, nursing nursing and ancillary staff involved in patient's care documentation, 35 Minutes Charges/Coding Visit Charges Inpatient E&M: 52944 [facility] L2
[2024-08-31] MEDS: Ceftriaxone 2 GM in 0.9% Normal Saline (50mL MB+) 50 ML IV (11:30)
[2024-08-31] MEDS: Enoxaparin 40 MG/0.4 ML Syringe SC (11:30)
[2024-08-31] MEDS: Azithromycin 500 MG in 0.9% Normal Saline (250mL Bag) 250 ML 255 MG IV (11:31)
[2024-08-31] MEDS: MELATONIN 10 MG TABLET PO (22:55)
[2024-08-31] MEDS: Senna/Docusate Sodium 1 Tablet 2 TABLET PO (22:55)
[2024-09-01] VITALS (9 sets, daily range): BP systolic 117–143; BP diastolic 53–68; PULSE 72–86; RESP 16–20; TEMP 36.3–36.8; O2SAT 94–99
--- NOTE | 2024-09-01 02:30 | CPS ---
Patient found with Nasal Cannula out of nose, CLAY THROWER placed NC back on patient and instructed her to leave it on.
[2024-09-01 06:47] LABS: Absolute Lymphocyte Count 1.21 X10^3/uL (0.83-4.51); Absolute Neutrophil Count 4.7 X10^3/uL (2.0-7.7); Basophil% 1.4 % (0-1); Eosinophil# 0.43 X10^3/uL; Eosinophils% 5.9 % (0-5); Hematocrit 38.1 % (37-47); Hemoglobin 12.1 g/dL (12.0-15.0); Lymphocyte # 1.21 X10^3/ul (0.83-4.51); Lymphocyte % 16.7 % (19-41); Mean Corp Hgb Conc 31.8 g/dL (32-36); Mean Corpuscular Hgb 28.3 pg (27.0-32.0); Mean Platelet Vol. 10.3 fl (6.2-12.0); Monocyte# 0.81 X10^3/uL; Monocyte% 11.2 % (0-10); NRBC Flagged by Analyzer 0 % (0-5); Neutrophil # 4.66 X10^3/uL (2.7-7.7); Neutrophil % 64.2 % (47-70); Platelet Count 265 K/mm3 (150-450); RBC Distribution Width CV 15.1 % (11.6-14.6); RBC Distribution Width SD 49.1 fl (35.1-43.9); Red Blood Count 4.28 M/mm3 (4.2-5.4); White Blood Count 7.3 K/mm3 (4.4-11.0)
[2024-09-01 07:20] LABS: Anion Gap 3 (5-15); BUN 13 mg/dL (7-18); BUN/Creat Ratio 27.5 RATIO (10-20); Calcium,Total 10.6 mg/dL (8.5-10.1); Chloride 111 mmol/L (98-107); Creatinine, Serum 0.47 mg/dL (0.55-1.02); EST Glomerular Filtration Rate 134 mL/min (>60); Est Glom Filt Rate - Afr Amer 162 mL/min (>60); Estimated Creatinine Clearance 48.92 ml/min; Glucose 103 mg/dL (74-106); Potassium 3.9 mmol/L (3.5-5.1); Sodium Level 142 mmol/L (136-145)
[2024-09-01] MEDS: Ipratropium/Albuterol Sulfate 3 ML AMPUL.NEB INHALATION ×3 (07:55→19:50)
[2024-09-01] MEDS: Senna/Docusate Sodium 1 Tablet 2 TABLET PO ×2 (08:35→21:05)
[2024-09-01] MEDS: Enoxaparin 40 MG/0.4 ML Syringe SC (08:35)
[2024-09-01] MEDS: Ceftriaxone 2 GM in 0.9% Normal Saline (50mL MB+) 50 ML IV (09:30)
--- NOTE | 2024-09-01 10:14 | CASEMGMT ---
Social Work- SW attempted to call nephew who does not have voicemail set up. SW met with pt who reports that she does not know where she would want to go and deferred to pt nephew. Pt reports that he is a milk pickup truck driver. SW shared that SW attempted to call nephew and was unable to reach. SW inquired about involving [id number] in decision-making if nephew remains unavailable. Pt reports that he is the executor of her estate and her power of tax attorney and she would want him to decide. SW will continue to reach out to nephew and follow for discharge planning needs. MOI Decker
[2024-09-01] MEDS: Azithromycin 500 MG in 0.9% Normal Saline (250mL Bag) 250 ML 255 MG IV (10:31)
--- NOTE | 2024-09-01 14:23 | CASEMGMT ---
BEE CM Readmission Note Previous Admission: 08/12/24-08/15/24 Diagnosis: pna, hypoxia DC Disposition: Home with HHC resuming, [facility] Current Admission: 08/30/24 Current Diagnosis: FTT Pt admitted on previous admission and dc'd home with HHC resuming through [facility], pt receives oxygen through [employer] at 2L continuous. This is the the 3rd admission since the end of June for pt. Pt also had an ER visit on 08/28/24 for CP. Pt represents with SOB and cough and admitted for placement. SW following pt for this and working with pt nephew. DC Plan: SNF pending acceptance and precert
[2024-09-01] MEDS: Ensure Plus High Protein 120 ML LIQUID PO (14:33)
--- NOTE | 2024-09-01 15:40 | CASEMGMT ---
Referral sent to [facility]. Cori Mo DC Planning Asst.
--- NOTE | 2024-09-01 15:56 | CASEMGMT ---
Social Work- SW met with pt and pt nephew to discuss preferences at discharge. Pt and nephew select [facility] as FOC, Geoffrey Adler as first alternate, Rajiv Vega as second alternate. DCA notified of referral request. KENYATTA remains available to follow. MOI Miller
--- NOTE | 2024-09-01 16:26 | CASEMGMT ---
[facility] has accepted and will submit for precert. SW updated. Cori Mo DC Planning Asst.
--- NOTE | 2024-09-01 19:23 | PCM.PN.HOSP ---
Reason for Visit Reason for Visit: Diagnoses Unspecified dementia, unspecified severity, without behavioral disturbance, psychotic disturbance, mood disturbance, and anxiety (08/30/24) Subjective Subjective Patient was seen and examined today, she has no complaints to this examiner. We are currently awaiting approval for placement in a long term facility for the patient. Objective Data Objective Data Vital Signs: Vital Signs Temp Pulse Resp BP Pulse Ox O2 Del Method O2 Flow Rate 97.5 F L 77 18 119/53 L 96 Nasal Cannula 2 09/01/24 15:00 09/01/24 15:00 09/01/24 15:00 09/01/24 15:00 09/01/24 15:00 09/01/24 15:29 09/01/24 15:29 Oxygen Flow Rate (L/min) 2 Oxygen Delivery Method Nasal Cannula Weight: 74.644 kg Body Mass Index (BMI) 48.2 Intake & Output: Intake and Output for Last 24 Hours 08/30/24 08/31/24 09/01/24 23:59 23:59 23:59 Intake Total 2255 / 2455 2255 / 2255 605 / 605 Balance 2255 / 2455 2255 / 2255 605 / 605 Lab / Micro Data 09/01/24 06:18 09/01/24 06:18 Labs: Laboratory Results - last 24 hr 09/01/24 06:18: WBC 7.3, RBC 4.28, Hgb 12.1, Hct 38.1, MCV 89.0, MCH 28.3, MCHC 31.8 L, RDW Std Deviation 49.1 H, RDW Coeff of Jaz 15.1 H, Plt Count 265, MPV 10.3, Immature Gran % (Auto) 0.600, Neut % (Auto) 64.2, Lymph % (Auto) 16.7 L, [place] % (Auto) 11.2 H, Eos % (Auto) 5.9 H, Baso % (Auto) 1.4 H, Absolute Neuts (auto) 4.7, Absolute Lymphs (auto) 1.21, Nucleated RBC % 0, Sodium 142, Potassium 3.9, Chloride 111 H, Carbon Dioxide 28.0, Anion Gap 3 L, BUN 13, Creatinine 0.47 L, Estim Creat Clear Calc 48.92, Est GFR (MDRD) Af Amer 162, Est GFR (MDRD) Non-Af 134, BUN/Creatinine Ratio 27.5 H, Glucose 103, Calcium 10.6 H Micro: Microbiology 08/30/24 00:40 Mucosa - Nasopharyngeal Respiratory Panel (PCR) - Final Rhythm Strip Rhythm Strip: Sinus Rhythm Rate: 83 Ectopy: None Physical Exam Const alert and no apparent distress General Appearance: cooperative, well kempt and well developed Orientation / Consciousness: awake and confused HEENT normocephalic, head/scalp atraumatic and moist oral mucous membranes Eyes PERRL, EOMs intact bilaterally and conjunctivae normal Neck supple, no JVD, thyroid normal and no carotid bruits General: trachea midline Resp normal respiratory effort, no retractions, no use of accessory muscles and clear to auscultation bilaterally Auscultation: Negative for rales, rhonchi or wheezes Cardio regular rate, regular rhythm, no murmurs, no rub and no gallops GI normal to inspection, nondistended, normoactive bowel sounds, soft to palpation, non-tender and non-distended Extremity no clubbing, cyanosis or edema Skin no rashes or lesions noted General Skin Exam: no breakdown Neuro CN's II-XII intact bilaterally, no focal motor deficits and no sensory deficits noted Neuro Narrative: Patient exhibits confusion Sensorium / Orientation: awake and alert Psych Psych Narrative: Patient is confused Assessment & Plan Assessment/Plan (1) Dementia: PLAN: Plan 1. Acute on chronic debility-we are currently awaiting approval for the patient to go to a long term facility for skilled services, PT and OT will continue to see the patient #2 chronic hypoxic respiratory failure-patient is chronically on home oxygen, pulse ox will be monitored and oxygen will be adjusted as needed #3 dementia-complicates care, management, recovery, and prognosis #4 essential hypertension-continue patient's medications, they will be adjusted as needed #5 hypercalcemia-this is mild and I do not feel it is significant Total clinical time spent by myself addressing patient's medical issues, reviewing all of her data, and collaborating with patient's care team: 35 minutes Charges/Coding Visit Charges Inpatient E&M: 48537 Subs Hosp L2
[2024-09-01] MEDS: MELATONIN 10 MG TABLET PO (21:05)
[2024-09-02] VITALS (11 sets, daily range): BP systolic 101–126; BP diastolic 42–81; PULSE 65–96; RESP 14–22; TEMP 36.4–36.7; O2SAT 90–96
[2024-09-02 07:31] LABS: Absolute Lymphocyte Count 1.36 X10^3/uL (0.83-4.51); Absolute Neutrophil Count 4.2 X10^3/uL (2.0-7.7); Basophil# 0.07 X10^3/uL; Eosinophil# 0.45 X10^3/uL; Eosinophils% 6.6 % (0-5); Hematocrit 37.4 % (37-47); Hemoglobin 11.5 g/dL (12.0-15.0); Lymphocyte # 1.36 X10^3/ul (0.83-4.51); Lymphocyte % 19.9 % (19-41); Mean Corp Hgb Conc 30.7 g/dL (32-36); Mean Corpuscular Hgb 27.5 pg (27.0-32.0); Mean Corpuscular Volume 89.5 fL (81-99); Mean Platelet Vol. 10.4 fl (6.2-12.0); Monocyte# 0.76 X10^3/uL; Monocyte% 11.1 % (0-10); NRBC Flagged by Analyzer 0 % (0-5); Neutrophil # 4.16 X10^3/uL (2.7-7.7); Platelet Count 242 K/mm3 (150-450); RBC Distribution Width CV 14.9 % (11.6-14.6); RBC Distribution Width SD 49.2 fl (35.1-43.9); Red Blood Count 4.18 M/mm3 (4.2-5.4); White Blood Count 6.8 K/mm3 (4.4-11.0)
[2024-09-02 08:04] LABS: Anion Gap 4 (5-15); BUN 11 mg/dL (7-18); BUN/Creat Ratio 27.6 RATIO (10-20); Calcium,Total 10.3 mg/dL (8.5-10.1); Chloride 111 mmol/L (98-107); EST Glomerular Filtration Rate 163 mL/min (>60); Est Glom Filt Rate - Afr Amer 197 mL/min (>60); Estimated Creatinine Clearance 48.92 ml/min; Glucose 86 mg/dL (74-106); Potassium 3.8 mmol/L (3.5-5.1); Sodium Level 142 mmol/L (136-145)
[2024-09-02] MEDS: Ipratropium/Albuterol Sulfate 3 ML AMPUL.NEB INHALATION ×3 (08:11→19:46)
--- NOTE | 2024-09-02 08:51 | CASEMGMT ---
[facility] has obtained auth to admit. SW updated. Cori Mo DC Planning Asst.
[2024-09-02] MEDS: Ceftriaxone 2 GM in 0.9% Normal Saline (50mL MB+) 50 ML IV (09:39)
[2024-09-02] MEDS: 0.9% Saline Lock 10 ML Syringe IV ×2 (09:45→21:47)
--- NOTE | 2024-09-02 09:54 | CASEMGMT ---
Social Work- KENYATTA met with pt to update on precert approval and ask about bi-pap. Pt reports that she is not certain if she has or uses one. KENYATTA called pt nephew who confirms that pt does have a bi-pap, but does not use it, as she is claustrophobic and also had a broken nose that was never reset and feels as if she cannot breathe when using it. Pt nephew reports that she has several different masks. Pt nephew reports that he would take it to SNF if they are able to assist pt in finding a way to use machine. KENYATTA notified DCA. KENYATTA updated nephew on [facility] acceptance and precert approval. KENYATTA will continue to follow. Plan: [facility]; when medically ready MOI Miller
[2024-09-02] MEDS: Senna/Docusate Sodium 1 Tablet 2 TABLET PO ×2 (10:04→21:11)
[2024-09-02] MEDS: Enoxaparin 40 MG/0.4 ML Syringe SC (10:05)
[2024-09-02] MEDS: Azithromycin 500 MG in 0.9% Normal Saline (250mL Bag) 250 ML 255 MG IV (10:14)
[2024-09-02] MEDS: Ensure Plus High Protein 120 ML LIQUID PO (13:09)
--- NOTE | 2024-09-02 16:00 | CASEMGMT ---
Social Work Precert has been obtained.? Physician updated and pt is ready for discharge today.? PASRR completed in HENS. Green sheet and transport on chart for nursing to follow for final discharge arrangements/notifications to SNF, patient/family. Plan: [facility]; skilled level of care MOI Miller?
--- NOTE | 2024-09-02 16:02 | CASEMGMT ---
[facility] notified that pt will likely return tonight. Green sheet and transport form placed in chart. Cori Mo DC Planning Asst.
--- NOTE | 2024-09-02 16:59 | PCM.TXEXTCAR ---
Diet Diet Order/Speech Therapy: 08/29/24 22:13 Diet: Regular - General Food consistency:: Regular Liquid Consistency:: Regular/Thin DC O2, CPAP, BIPAP needs Home O2 Discharge instructions: Yes Type of respiratory needs?: Oxygen Oxygen frequency: Continuous Continuous oxygen liters per minute: 2 L Therapies Weight Bearing: Full weight bearing Physical Therapy: Eval and Treat Occupational Therapy: Eval and Treat Problem/Diagnosis (1) Dementia: Status: Acute Code(s): F03.90 - Unspecified dementia, unspecified severity, without behavioral disturbance, psychotic disturbance, mood disturbance, and anxiety Plan 1. Acute on chronic debility-we are currently awaiting approval for the patient to go to a long-term facility for skilled services, PT and OT will continue to see the patient #2 chronic hypoxic respiratory failure-patient is chronically on home oxygen, pulse ox will be monitored and oxygen will be adjusted as needed #3 dementia-complicates care, management, recovery, and prognosis #4 essential hypertension-continue patient's medications, they will be adjusted as needed #5 hypercalcemia-this is mild and I do not feel it is significant Total clinical time spent by myself addressing patient's medical issues, reviewing all of her data, and collaborating with patient's care team: 35 minutes Allergies/Procedures Done in Hospital Allergies aspirin Allergy (Unknown, Verified 08/29/24 12:56) PT UNSURE OF REACTION cefaclor Allergy (Verified 08/29/24 12:56) PT UNSURE OF REACTION chlorzoxazone Allergy (Verified 08/29/24 12:56) PT UNSURE OF REACTION codeine Allergy (Verified 08/29/24 12:56) PT UNSURE OF REACTION erythromycin base Allergy (Verified 08/29/24 12:56) PT UNSURE OF REACTION guanfacine Allergy (Verified 08/29/24 12:56) PT UNSURE OF REACTION naproxen Allergy (Verified 08/29/24 12:56) PT UNSURE OF REACTION orphenadrine Allergy (Verified 08/29/24 12:56) PT UNSURE OF REACTION oxytetracycline Allergy (Verified 08/29/24 12:56) PT UNSURE OF REACTION Penicillins Allergy (Verified 08/29/24 12:56) PT UNSURE OF REACTION piroxicam Allergy (Verified 08/29/24 12:56) PT UNSURE OF REACTION Sulfa (Sulfonamide Antibiotics) Allergy (Verified 08/29/24 12:56) PT UNSURE OF REACTION testosterone Allergy (Verified 08/29/24 12:56) PT UNSURE OF REACTION Procedures: None Type of Care/Length of Stay Estimated LOS: Convalescent Care Less Than 30 days Type of Care Needed: Skilled Rehab Potential: Good Prognosis: Good Additional Orders/Day of Discharge H&P will serve as current which was dated: 08/29/24 Day of Discharge: 09/02/24 Dietary and Speech Recommendations Dietitian Recommendations/Changes: Will continue liberal regular diet Will order 4 oz chocolate ensure plus high protein 4x/day w/ medpass. Discharge Plan Admission Admit Date/Time: 08/30/24 12:14 Primary Reason for Your Visit: Failure to thrive, possible pneumonia Attending Provider: Suman Choi Primary Care Provider: James Leach Consulting Providers: Betty Mike; Niall Loco Discharge Orders/Prescriptions Prescriptions: New acetaminophen 325 mg Tablet 650 mg PO Q6H PRN PRN (Reason: Pain 1-10 Or Fever >100.7) Qty: 0 0RF ipratropium-albuterol 0.5 mg-3 mg(2.5 mg base)/3 mL Solution For Nebulization 3 ml inhalation Q6HWA.RT Qty: 0 0RF albuterol sulfate 2.5 mg /3 mL (0.083 %) Solution For Nebulization 2.5 mg inhalation Q2H PRN PRN (Reason: SOB &/OR WHEEZING) Qty: 0 0RF melatonin 10 mg Tablet, Sublingual 10 mg PO QHS Qty: 0 0RF Ensure Plus High Protein 0.08 gram-1.5 kcal/mL Liquid 120 ml PO 4X/DAY Qty: 0 0RF Continued ezetimibe 10 mg tablet 10 mg PO DAILY rosuvastatin 5 mg tablet 5 mg PO DAILY donepezil 5 mg tablet 10 mg PO QHS Discontinued albuterol sulfate 90 mcg/actuation HFA aerosol inhaler 2 puff INHALATION .qid PRN (Reason: wheezing) Patient Comments: inhale 2 puffs by mouth up to four times a day if needed furosemide 20 mg tablet 20 mg PO DAILY PRN (Reason: edema) nitroglycerin 0.2 mg/hr patch 24 hour 1 patch transdermal DAILY triamterene-hydrochlorothiazid 37.5-25 mg capsule 1 cap PO DAILY guaifenesin 100 mg/5 mL Liquid 200 mg PO Q4H PRN PRN (Reason: Cough) Qty: 473 0RF ipratropium-albuterol 0.5 mg-3 mg(2.5 mg base)/3 mL solution for nebulization 3 ml inhalation Q6H 14 Days Qty: 180 0RF Rx Instructions: Please continue scheduled aerosols for the next 10-14 days and then may return to only as needed. aspirin 81 mg capsule 81 mg PO DAILY levofloxacin 500 mg tablet 500 mg PO DAILY Qty: 5 0RF nitrofurantoin macrocrystal 100 mg capsule 100 mg PO BID Qty: 10 0RF Rx Instructions: must administer with a meal/food Referrals / Follow Up: James Leach DO [Primary Care Provider] - Disposition Disposition (needs filled in before D/C Order can be placed): [facility]
--- NOTE | 2024-09-02 17:17 | PCM.DC.SUM ---
Providers Date of Admission: 08/30/24 Date of Discharge: 09/02/24 Primary Care Physician: Dr. James Leach DO Reason For Visit: FAILURE TO THRIVE Diagnosis Discharge Diagnosis (1) Dementia: Status: Acute Code(s): F03.90 - Unspecified dementia, unspecified severity, without behavioral disturbance, psychotic disturbance, mood disturbance, and anxiety Plan 1. Acute on chronic debility-we are currently awaiting approval for the patient to go to a care home facility for skilled services, PT and OT will continue to see the patient #2 chronic hypoxic respiratory failure-patient is chronically on home oxygen, pulse ox will be monitored and oxygen will be adjusted as needed #3 dementia-complicates care, management, recovery, and prognosis #4 essential hypertension-continue patient's medications, they will be adjusted as needed #5 hypercalcemia-this is mild and I do not feel it is significant Total clinical time spent by myself addressing patient's medical issues, reviewing all of her data, and collaborating with patient's care team: 35 minutes Medications at Discharge Home Medications ezetimibe 10 mg tablet 10 mg PO DAILY cholesterol 07/17/24 rosuvastatin 5 mg tablet 5 mg PO DAILY cholesterol 07/17/24 donepezil 5 mg tablet 10 mg PO QHS dementia 08/12/24 acetaminophen 325 mg tablet 650 mg (2 x 325 mg) PO Q6H PRN PRN Pain 1-10 Or Fever >100.7 #0 tabs 09/02/24 albuterol sulfate 2.5 mg/3 mL (0.083 %) solution for nebulization 2.5 mg (3 mL) inhalation Q2H PRN PRN SOB &/OR WHEEZING #0 mL 09/02/24 food supplemt, lactose-reduced 0.08 gram-1.5 kcal/mL oral liquid (Ensure Plus High Protein) 120 ml PO 4X/DAY #0 mL 09/02/24 ipratropium 0.5 mg-albuterol 3 mg (2.5 mg base)/3 mL nebulization soln 3 ml inhalation Q6HWA.RT #0 mL 09/02/24 melatonin 10 mg sublingual tablet 10 mg PO QHS #0 tabs 09/02/24 Hospital Course Operations None Procedures None Summary of Care Provided Minutes Spent on Discharge: 32 Hospital Course: This 83-year-old white female was seen in the emergency room at [facility] with a chief complaint of shortness of breath and cough, patient has dementia and was not able to communicate in the emergency room concerning her symptoms. The day before patient was evaluated in the ER due to complaints of chest pain, at that time she had a social work evaluation due to her dementia and it was found that she was living with her uygtkd-an-yty who also had dementia, there was some concern from her home health that she may need placement but after speaking with the patient's POA (her nephew) decision was made to discharge home with continued home health. On examination, patient was on her baseline oxygen of 2 L, patient had a negative CTA the day before which did not show any evidence of pulmonary emboli. Social work spoke with the patient's POA who is in agreement that the patient should be admitted to the hospital for placement in a care home facility. Patient was agreeable to that also. Patient was admitted to [place] [id number] and seen by PT and OT, arrangements were made for the patient to go to care home facility. On 09/02/2024, patient was seen and examined:alert and no apparent distress General Appearance: cooperative, well kempt and well developed Orientation / Consciousness: awake and confused HEENT normocephalic, head/scalp atraumatic and moist oral mucous membranes Eyes PERRL, EOMs intact bilaterally and conjunctivae normal Neck supple, no JVD, thyroid normal and no carotid bruits General: trachea midline Resp normal respiratory effort, no retractions, no use of accessory muscles and clear to auscultation bilaterally Auscultation: Negative for rales, rhonchi or wheezes Cardio regular rate, regular rhythm, no murmurs, no rub and no gallops GI normal to inspection, nondistended, normoactive bowel sounds, soft to palpation, non-tender and non-distended Extremity no clubbing, cyanosis or edema Skin no rashes or lesions noted General Skin Exam: no breakdown Neuro CN's II-XII intact bilaterally, no focal motor deficits and no sensory deficits noted Neuro Narrative: Patient exhibits confusion Sensorium / Orientation: awake and alert Psych Psych Narrative: Patient is confused Patient was transferred to an extended care facility in stable condition on 09/02/2024 Weight / BMI Weight Weight: 74.644 kg Body Mass Index (BMI) 48.2 ABG / Lab / Microbiology Data 09/02/24 05:58 09/02/24 05:58 Laboratory: Laboratory Results - last 24 hr 09/02/24 05:58: WBC 6.8, RBC 4.18 L, Hgb 11.5 L, Hct 37.4, MCV 89.5, MCH 27.5, MCHC 30.7 L, RDW Std Deviation 49.2 H, RDW Coeff of Jaz 14.9 H, Plt Count 242, MPV 10.4, Immature Gran % (Auto) 0.400, Neut % (Auto) 61.0, Lymph % (Auto) 19.9, [place] % (Auto) 11.1 H, Eos % (Auto) 6.6 H, Baso % (Auto) 1.0, Absolute Neuts (auto) 4.2, Absolute Lymphs (auto) 1.36, Nucleated RBC % 0, Sodium 142, Potassium 3.8, Chloride 111 H, Carbon Dioxide 28.0, Anion Gap 4 L, BUN 11, Creatinine 0.40 L, Estim Creat Clear Calc 48.92, Est GFR (MDRD) Af Amer 197, Est GFR (MDRD) Non-Af 163, BUN/Creatinine Ratio 27.6 H, Glucose 86, Calcium 10.3 H Microbiology: Microbiology 08/30/24 00:40 Mucosa - Nasopharyngeal Respiratory Panel (PCR) - Final D/C Instructions DC O2, CPAP, BIPAP Needs Home O2 Discharge instructions: Yes Type of respiratory needs?: Oxygen Oxygen frequency: Continuous Continuous oxygen liters per minute: 2 L DC home with Oxygen: Yes Home O2 MD Review: I have reviewed the oxygen testing, and the patient qualifies for home oxygen equipment and portability. The patient is mobile in the home and the community. Meaningful Use Info Meaningful Use Meaningful Use Diagnoses (Choose all that apply): None applicable Ischemic Stroke Statin Dosing Therapy Reference: STATIN DOSE THERAPY REFERENCE: * Patients > 75 years receive moderate or high dose statin therapy. * Patients 75 years or YOUNGER should receive HIGH intensity statin dose unless contraindicated. You will be required to document reason for non-treatment if statin daily dose does not meet guidelines. HIGH DOSE STATIN THERAPY DAILY Atorvastatin > than or = to 40 mg Rosuvastatin > than or = to 20 mg Amlodipine + Atorvastatin > than or = to 2.5/40 mg Ezetimibe + Simvastatin 10/80 mg Simvastatin 80mg Discharge Plan Admission Admit Date/Time: 08/30/24 12:14 Primary Reason for Your Visit: Failure to thrive, possible pneumonia Attending Provider: Suman Choi Primary Care Provider: James Leach Consulting Providers: Betty Mike; Niall Loco Discharge Orders/Prescriptions Prescriptions: New acetaminophen 325 mg Tablet 650 mg PO Q6H PRN PRN (Reason: Pain 1-10 Or Fever >100.7) Qty: 0 0RF ipratropium-albuterol 0.5 mg-3 mg(2.5 mg base)/3 mL Solution For Nebulization 3 ml inhalation Q6HWA.RT Qty: 0 0RF albuterol sulfate 2.5 mg /3 mL (0.083 %) Solution For Nebulization 2.5 mg inhalation Q2H PRN PRN (Reason: SOB &/OR WHEEZING) Qty: 0 0RF melatonin 10 mg Tablet, Sublingual 10 mg PO QHS Qty: 0 0RF Ensure Plus High Protein 0.08 gram-1.5 kcal/mL Liquid 120 ml PO 4X/DAY Qty: 0 0RF Continued ezetimibe 10 mg tablet 10 mg PO DAILY rosuvastatin 5 mg tablet 5 mg PO DAILY donepezil 5 mg tablet 10 mg PO QHS Discontinued albuterol sulfate 90 mcg/actuation HFA aerosol inhaler 2 puff INHALATION .qid PRN (Reason: wheezing) Patient Comments: inhale 2 puffs by mouth up to four times a day if needed furosemide 20 mg tablet 20 mg PO DAILY PRN (Reason: edema) nitroglycerin 0.2 mg/hr patch 24 hour 1 patch transdermal DAILY triamterene-hydrochlorothiazid 37.5-25 mg capsule 1 cap PO DAILY guaifenesin 100 mg/5 mL Liquid 200 mg PO Q4H PRN PRN (Reason: Cough) Qty: 473 0RF ipratropium-albuterol 0.5 mg-3 mg(2.5 mg base)/3 mL solution for nebulization 3 ml inhalation Q6H 14 Days Qty: 180 0RF Rx Instructions: Please continue scheduled aerosols for the next 10-14 days and then may return to only as needed. aspirin 81 mg capsule 81 mg PO DAILY levofloxacin 500 mg tablet 500 mg PO DAILY Qty: 5 0RF nitrofurantoin macrocrystal 100 mg capsule 100 mg PO BID Qty: 10 0RF Rx Instructions: must administer with a meal/food Referrals / Follow Up: James Leach DO [Primary Care Provider] - Disposition Disposition (needs filled in before D/C Order can be placed): [facility] Facility Charges/Coding Visit Charges Inpatient E&M: 54117 Disch Hosp >30min
[2024-09-02] MEDS: MELATONIN 10 MG TABLET PO (21:11)
[2024-09-02] MEDS: Acetaminophen 325 MG Tablet 650 MG PO (21:18)
--- NOTE | 2024-09-08 17:48 | CM.ED ---
Social work Received secure email from Jad Taylor RN with [facility] from an assessment for patient today, 09/08/24. Short term plan for care: - Seems to meet [facility] requirements for waiver. Chose not to apply at this time-rescheduled - Written information given to Cs regarding scope of services of Passport waiver - Wants to delay full assessment/potential application until family can also be present - Immediate services needs will be met by: [facility] intermediate frame tender plan for care: - To be scheduled for another assessment next week- family has been notified and agrees - Will assess for/help apply for PPW. Will address income/assets for eligibility determination - Will consider NON-medicaid service programs (as needed) pending a financial assessment [place], PSYCHOMETRIST, OPENER TENDER
== END 2024-09-03 00:15 | disposition skilled nursing facility (03) | DRG 640 ==
LOC: ED 16:25 → MS3 16:53
PROVIDERS: Internal Medicine; Admitting Provider Internal Medicine; Emergency Provider Emergency Medicine; Visit Provider Internal Medicine
DX: R62.7 Adult failure to thrive (principal); J13 Pneumonia due to Streptococcus pneumoniae; Z68.42 Body mass index [BMI] 45.0-49.9, adult; J44.0 Chronic obstructive pulmonary disease with (acute) lower respiratory infection; J96.11 Chronic respiratory failure with hypoxia; Z99.81 Dependence on supplemental oxygen; G30.9 Alzheimer's disease, unspecified; I12.9 Hypertensive chronic kidney disease with stage 1 through stage 4 chronic kidney disease, or unspecified chronic kidney disease; N18.2 Chronic kidney disease, stage 2 (mild); E78.5 Hyperlipidemia, unspecified; G47.33 Obstructive sleep apnea (adult) (pediatric); F02.80 Dementia in other diseases classified elsewhere, unspecified severity, without behavioral disturbance, psychotic disturbance, mood disturbance, and anxiety; R53.81 Other malaise; Z91.198 Patient's noncompliance with other medical treatment and regimen for other reason; Z79.899 Other long term (current) drug therapy; Z86.73 Personal history of transient ischemic attack (TIA), and cerebral infarction without residual deficits
CPT/HCPCS: 36415; 71045; 71275; 80048; 81001; 82306; 83735; 83970; 84100; 84443; 84484; 85025; 85379; 87631; 87633; 93005; 94640; 94668; 94760; 97162; 97166; 97530; 97535; 99285; Q9967; A4216; J0696

== ENCOUNTER 2024-09-18 09:47 | Emergency (ER) | payer MEDICARE, SELFPAY ==
[2024-09-18 09:52] VITALS: BP 139/88; PULSE 59; RESP 17; TEMP 36.5; O2SAT 98; BMI 37.5
--- NOTE | 2024-09-18 10:00 | EX.ED.DYSGE1 ---
HPI History of Present Illness Chief Complaint: Chest Pain Narrative Narrative: History and physical is limited secondary to dementia. 83-year-old female presents via EMS with reports of chest pain that have resolved. She currently lives at home with a relative, her yfcfmy-yg-lzr. Her unmcum-hd-fej reported that she is having difficulty taking care of the patient at home. Of note, patient had been seen earlier in the month approximately 3 weeks ago on 2 consecutive days complaining of chest pain. She had a social work consult as well as she has home health care and it was decided that she would be discharged each time to continue with home health care. She does have history of chronic respiratory failure with hypoxia and wears 2 L of oxygen. Patient denies any chest pain currently, no other symptoms. She is not really sure why she is here in the emergency department. 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 SHIRA (obstructive sleep apnea) Obesity (BMI 30.0-34.9) Hypoxia Osteoporosis Non-smoker BiPAP (biphasic positive airway pressure) dependence COPD (chronic obstructive pulmonary disease) Asthma TIA (transient ischemic attack) Home Medications ?Medication ?Instructions ?Recorded ?Last Taken ?Type ezetimibe 10 mg tablet 10 mg PO DAILY cholesterol 07/17/24 Unknown History rosuvastatin 5 mg tablet 5 mg PO DAILY cholesterol 07/17/24 Unknown History donepezil 5 mg tablet 10 mg PO QHS dementia 08/12/24 Unknown History acetaminophen 325 mg tablet 650 mg (2 x 325 mg) PO Q6H PRN PRN 09/02/24 Unknown Rx Pain 1-10 Or Fever >100.7 #0 tabs albuterol sulfate 2.5 mg/3 mL 2.5 mg (3 mL) inhalation Q2H PRN 09/02/24 Unknown Rx (0.083 %) solution for nebulization PRN SOB &/OR WHEEZING #0 mL food supplemt, lactose-reduced 120 ml PO 4X/DAY #0 mL 09/02/24 Unknown Rx 0.08 gram-1.5 kcal/mL oral liquid (Ensure Plus High Protein) ipratropium 0.5 mg-albuterol 3 mg 3 ml inhalation Q6HWA.RT #0 mL 09/02/24 Unknown Rx (2.5 mg base)/3 mL nebulization soln melatonin 10 mg sublingual tablet 10 mg PO QHS #0 tabs 09/02/24 Unknown Rx Allergy/AdvReac Type Severity Reaction Status Date / Time aspirin Allergy Unknown PT UNSURE Verified 09/18/24 09:54 OF REACTION cefaclor Allergy PT UNSURE Verified 09/18/24 09:54 OF REACTION chlorzoxazone Allergy PT UNSURE Verified 09/18/24 09:54 OF REACTION codeine Allergy PT UNSURE Verified 09/18/24 09:54 OF REACTION erythromycin base Allergy PT UNSURE Verified 09/18/24 09:54 OF REACTION guanfacine Allergy PT UNSURE Verified 09/18/24 09:54 OF REACTION naproxen Allergy PT UNSURE Verified 09/18/24 09:54 OF REACTION orphenadrine Allergy PT UNSURE Verified 09/18/24 09:54 OF REACTION oxytetracycline Allergy PT UNSURE Verified 09/18/24 09:54 OF REACTION Penicillins Allergy PT UNSURE Verified 09/18/24 09:54 OF REACTION piroxicam Allergy PT UNSURE Verified 09/18/24 09:54 OF REACTION Sulfa (Sulfonamide Allergy PT UNSURE Verified 09/18/24 09:54 Antibiotics) OF REACTION testosterone Allergy PT UNSURE Verified 09/18/24 09:54 OF REACTION Social History household members: 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 Smoking Status: Never smoker alcohol intake: never substance use type: does not use ROS ROS ED ROS Narrative Unable to obtain from patient secondary to dementia. Review of Systems ROS Unobtainable: due to mental condition EXAM Physical Exam Narrative Exam Narrative: Afebrile. Vital signs noted. Nontoxic-appearing. Cardiovascular examination reveals intermittent bradycardia but otherwise regular. Lungs are clear to auscultation bilaterally. Abdomen is soft and nontender. Positive ventral hernia. Reducible. Positive bowel sounds. Neurological examination is nonfocal and nonlateralizing. She is awake, and alert. Interactive. Limited secondary to dementia. Const Vital Signs: 09/18/24 09:52 09/18/24 09:55 09/18/24 10:45 Temperature 97.7 F L Temperature Source Oral Pulse Rate 59 L 61 Respiratory Rate 17 14 Respiratory Effort Normal Non-Labored Blood Pressure 139/88 H 127/49 H Blood Pressure Mean 105 71 Pulse Ox 98 98 Oxygen Delivery Method Nasal Cannula Oxygen Flow Rate (L/min) 4 09/18/24 11:30 09/18/24 12:00 09/18/24 13:00 Temperature Temperature Source Pulse Rate 60 65 66 Respiratory Rate 18 17 13 Respiratory Effort Blood Pressure 118/65 131/66 H 123/57 H Blood Pressure Mean 81 84 79 Pulse Ox 98 98 97 Oxygen Delivery Method Oxygen Flow Rate (L/min) 09/18/24 13:14 Temperature 97.7 F L Temperature Source Pulse Rate 66 Respiratory Rate 13 Respiratory Effort Blood Pressure 123/57 H Blood Pressure Mean 79 Pulse Ox 97 Oxygen Delivery Method Oxygen Flow Rate (L/min) MDM MDM MDM Narrative Medical decision making narrative: There really feel differential diagnosis is applicable in this case. I reviewed her prior records and she has been worked up multiple times for chest pain that was fleeting. While she may have an ACS, I have low suspicion for pulmonary embolism. I will obtain screening labs and pursue a chest pain workup including high-sensitivity troponins. I also feel that she may need social work consultation as it was reported that her caregiver wishes senior care placement, but the rest of the family including her reported power of employment law attorney does not want senior care placement. I discussed patient with social work. They are familiar with the patient. Social work did contact the nephew who states that he does not want senior care placement and that he is able to take care of her. Apparently she had been placed in a senior care and was discharged approximately 2 weeks ago. On my workup of her for her chest pain, chest x-ray was obtained and interpreted by myself independently. No evidence of pneumonia or pneumothorax on my independent interpretation. I reviewed the radiology report which confirms my independent interpretation. I reviewed her laboratory work and she has normal white count of 9.7 with hemoglobin normal at 13.5, hematocrit 41.5, platelet count 290. CMP grossly unremarkable. Initial high-sensitivity troponin 15 with repeat at 2 hours being 14. Hence I feel she has been ruled out for ACS with biomarkers. Urinalysis is negative for infection. EKG was obtained and interpreted by myself independently as normal sinus rhythm at [address] changes. No STEMI. No significant change from previous on 08/30/2024. As her power of employment law attorney stated to the social media designer that he does not want her admitted for placement, she will be discharged to follow-up. Her lcahji-qv-oaq and improvement nurse was contacted eventually and will pick her up. Disposition is discharged home in stable condition. History & Record Review Discussion w/independent historian: Patient Additional record(s) reviewed:: Prior ED visit Lab Data Attestation: I reviewed the patient's lab results. Labs: Laboratory Results - last 24 hr 09/18/24 09/18/24 09/18/24 10:20 10:22 11:30 WBC 9.7 RBC 4.74 Hgb 13.5 Hct 41.5 MCV 87.6 MCH 28.5 MCHC 32.5 RDW Std Deviation 45.1 H RDW Coeff of Jaz 14.0 Plt Count 290 MPV 10.2 Immature Gran % (Auto) 0.500 Neut % (Auto) 67.3 Lymph % (Auto) 18.0 L [place] % (Auto) 9.5 Eos % (Auto) 3.9 Baso % (Auto) 0.8 Absolute Neuts (auto) 6.5 Absolute Lymphs (auto) 1.75 Nucleated RBC % 0 Sodium 138 Potassium 4.2 Chloride Direct 103 Carbon Dioxide 26.0 Anion Gap 10 BUN 11 Creatinine 0.5 L Estim Creat Clear Calc 50.34 Est GFR (MDRD) Non-Af 93 BUN/Creatinine Ratio 21.8 H Glucose 98 Calcium 10.9 Total Bilirubin 0.40 AST 17 ALT 11 Alkaline Phosphatase 112 H Troponin T High Sens 15 H Troponin T Hi Sens 2 Hr 14 Troponin T Hi Sens 2Hr Delta 0 Total Protein 6.4 Albumin 3.7 Globulin 2.7 Albumin/Globulin Ratio 1.4 Urine Color Yellow Urine Clarity Clear Urine pH 8.0 Ur Specific [place] 1.010 Urine Protein Negative Urine Glucose (UA) Normal Urine Ketones Negative Urine Occult Blood Negative Urine Nitrite Negative Urine Bilirubin Negative Urine Urobilinogen Normal Ur Leukocyte Esterase Negative Urine RBC 0 SEEN Urine WBC 0 SEEN Ur Squamous Epith Cells 0-5 SEEN Urine Bacteria 0 SEEN Urine Mucus 0 SEEN Radiography Chest X-Ray - ED: 1 View, Read by ED Physician and Read by Radiologist Diagnostic Testing: Clinical Impression(s) from Imaging Studies Chest X-Ray 09/18/24 10:30 IMPRESSION: No acute abnormality is seen. Stable examination. Reading Location: [id number] Discharge Plan Triage Chief Complaint: Chest Pain ED Provider: Abundio Tyson Dx/Rx/DC Orders Clinical Impression: Dementia, Acute hypoxic respiratory failure, Chest pain Instructions: Dementia Caregiver Tips, ED Chest Pain, Uncertain Cause Prescriptions: No Action ezetimibe 10 mg tablet 10 mg PO DAILY rosuvastatin 5 mg tablet 5 mg PO DAILY donepezil 5 mg tablet 10 mg PO QHS acetaminophen 325 mg Tablet 650 mg PO Q6H PRN PRN (Reason: Pain 1-10 Or Fever >100.7) Qty: 0 0RF ipratropium-albuterol 0.5 mg-3 mg(2.5 mg base)/3 mL Solution For Nebulization 3 ml inhalation Q6HWA.RT Qty: 0 0RF albuterol sulfate 2.5 mg /3 mL (0.083 %) Solution For Nebulization 2.5 mg inhalation Q2H PRN PRN (Reason: SOB &/OR WHEEZING) Qty: 0 0RF melatonin 10 mg Tablet, Sublingual 10 mg PO QHS Qty: 0 0RF Ensure Plus High Protein 0.08 gram-1.5 kcal/mL Liquid 120 ml PO 4X/DAY Qty: 0 0RF Primary Care Provider: James Leach Referrals: James Leach DO [Primary Care Provider] - As soon as possible Print Language: Palauan Disposition Disposition: Home, Self Care
--- NOTE | 2024-09-18 10:30 | RAD_ITS ---
PROCEDURE: CHEST 1 VIEW (PORTABLE) REASON FOR EXAM: Left-sided chest pain. TECHNIQUE: Frontal view of the chest. COMPARISON: Comparison is made with prior study dated August 29, 2024. FINDINGS: EKG electrodes are seen. Mild cardiomegaly. Stable mild increased markings at the lung bases suggestive of scarring. No acute infiltrate is seen. Degenerative changes are identified within the thoracic spine. RAD/Chest 1 View (Portable) IMPRESSION: No acute abnormality is seen. Stable examination. Reading Location: [facility]
[2024-09-18 10:32] LABS: Bacteria 0 SEEN /hpf (None Seen); Mucous, Urine 0 SEEN /hpf (<or=2+); White Blood Cells 0 SEEN /hpf (0-5)
[2024-09-18 10:36] LABS: Absolute Lymphocyte Count 1.75 X10^3/uL (0.83-4.51); Absolute Neutrophil Count 6.5 X10^3/uL (2.0-7.7); Basophil# 0.08 X10^3/uL; Basophil% 0.8 % (0-1); Eosinophil# 0.38 X10^3/uL; Eosinophils% 3.9 % (0-5); Hematocrit 41.5 % (37-47); Hemoglobin 13.5 g/dL (12.0-15.0); Lymphocyte # 1.75 X10^3/ul (0.83-4.51); Mean Corp Hgb Conc 32.5 g/dL (32-36); Mean Corpuscular Hgb 28.5 pg (27.0-32.0); Mean Corpuscular Volume 87.6 fL (81-99); Mean Platelet Vol. 10.2 fl (6.2-12.0); Monocyte# 0.92 X10^3/uL; Monocyte% 9.5 % (0-10); NRBC Flagged by Analyzer 0 % (0-5); Neutrophil # 6.52 X10^3/uL (2.7-7.7); Neutrophil % 67.3 % (47-70); Platelet Count 290 K/mm3 (150-450); RBC Distribution Width SD 45.1 fl (35.1-43.9); Red Blood Count 4.74 M/mm3 (4.2-5.4); White Blood Count 9.7 K/mm3 (4.4-11.0)
[2024-09-18 10:44] LABS: Color, Urine Yellow (Yellow); Glucose, Dipstick Normal (Normal); Ketone-Dipstick Negative (Negative); Leukocyte Esterase-Dipstick Negative /ul (Negative); Nitrite-Dipstick Negative (Negative); Occult Blood-Urine Negative /ul (Negative); Protein-Dipstick Negative (Negative); Urine Bilirubin Dipstick Negative (Negative); Urine Clarity Clear (Clear); Urine Urobilinogen Normal (Normal)
[2024-09-18 10:45] VITALS: BP 127/49; PULSE 61; RESP 14; O2SAT 98
[2024-09-18 10:49] LABS: Red Blood Cells-Urine 0 SEEN /hpf (0-5); Squamous Epithelial Cells - UA 0-5 SEEN /hpf (5-10)
--- NOTE | 2024-09-18 10:57 | CM.ED ---
Social Work SW called patients sister in law who is the primary critical care cns for patient, no answer, message left to return call. SW attempted to speak with patient regarding reason for discharge from [facility], patient stated she did not remember living there. [facility] SWCaprice, contacted who stated patient received a NOMNC and family did not want to pursue salvage determiner care. SW then called patients nephew, Jorge, who is patients HPOA. Jorge stated that they discharged patient from [facility] because he felt she was receiving just as much, if not more, care at home. KENYATTA explained to Jorge that there is a concern that patient is not receiving the care she needs at home and that patients dementia has progressed to the point of needing 24 hour care. Jorge stated that she will not be going to a SNF, that they are 'figuring it out at home. Jorge states that with patient receiving home health, his mother in the home during the day, and Jorge being home in the evenings, that patient has the care that is needed. Mago Up, DIRECTOR PRODUCT SAFETY, HARD TILE SETTER APPRENTICE
[2024-09-18 11:30] VITALS: BP 118/65; PULSE 60; RESP 18; O2SAT 98
[2024-09-18 12:00] VITALS: BP 131/66; PULSE 65; RESP 17; O2SAT 98
[2024-09-18 12:01] LABS: Troponin T High Sensitivity 15 ng/L (<=14)
[2024-09-18 12:16] LABS: ALB/GLOB Ratio 1.4 RATIO (0.9-2.4); AST(SGOT) 17 U/L (<=31); Alanine Aminotransfer ALT/SGPT 11 U/L (<=34); Albumin, Serum 3.7 g/dL (3.4-4.8); Alkaline Phosphatase 112 U/L (35-104); Anion Gap 10 (5-15); BUN 11 mg/dL (4-19); BUN/Creat Ratio 21.8 RATIO (10-20); Calcium 10.9 mg/dL (7.6-11.0); Chloride 103 mmol/L (96-108); Creatinine, Serum 0.5 mg/dL (0.6-1.0); EST Glomerular Filtration Rate 93 (>60); Estimated Creatinine Clearance 50.34 ml/min; Globulin 2.7 g/dL (2.2-4.2); Glucose 98 mg/dL (70-99); Potassium 4.2 mmol/L (3.3-5.1); Protein, Total 6.4 g/dL (5.9-8.4); Sodium Level 138 mmol/L (133-145)
[2024-09-18 12:50] LABS: TROPONIN VARIANCE 2 HR 0; Troponin T High Sens 2 HR 14 ng/L (<=14)
[2024-09-18 13:00] VITALS: BP 123/57; PULSE 66; RESP 13; O2SAT 97
--- NOTE | 2024-09-18 13:12 | EKG12_ITS ---
Test Reason : CP Blood Pressure : */* mmHG Vent. Rate : 60 BPM Atrial Rate : 60 BPM P-R Int : 172 ms QRS Dur : 92 ms QT Int : 418 ms P-R-T Axes : 58 -25 15 degrees QTcB Int : 418 ms Normal sinus rhythm Moderate voltage criteria for LVH, may be normal variant ( R in aVL , Gino product ) Septal infarct , age undetermined Abnormal ECG Confirmed by Mariano Mirza ([id number]), clinical editor KEITH DURAN ([id number]) on 09/22/2024 7:41:40 AM Referred By: Confirmed By: Mariano Mirza
[2024-09-18 13:14] VITALS: BP 123/57; PULSE 66; RESP 13; TEMP 36.5; O2SAT 97
--- NOTE | 2024-09-18 13:15 | CM.ED ---
Social Work SW called Tika again, no answer. Waited ten minutes and called back, Tika did answer on the third call. Tika stated that she felt she was still able to care for patient at home and that she understood Jorge did not want jail placement as they cannot afford it. Tika stated she would pick patient up from the ED and take her home and she would bring her portable oxygen. Mago Up, RESIDENTIAL TREATMENT SPECIALIST, final operations technician
--- NOTE | 2024-09-18 18:13 | CM.ED ---
Social Work APS referral was made to Andrea due to concerns related to patients care in the community. Mago Up, GASOLINE CATALYST OPERATOR, ALLERGIST
== END 2024-09-18 14:16 | disposition home or self-care (01) ==
PROVIDERS: Emergency Provider Emergency Medicine; Visit Provider Emergency Medicine
DX: R07.9 Chest pain, unspecified (principal); J96.01 Acute respiratory failure with hypoxia; G30.9 Alzheimer's disease, unspecified; F02.80 Dementia in other diseases classified elsewhere, unspecified severity, without behavioral disturbance, psychotic disturbance, mood disturbance, and anxiety; J44.9 Chronic obstructive pulmonary disease, unspecified; I12.9 Hypertensive chronic kidney disease with stage 1 through stage 4 chronic kidney disease, or unspecified chronic kidney disease; N18.2 Chronic kidney disease, stage 2 (mild); E78.5 Hyperlipidemia, unspecified; G47.33 Obstructive sleep apnea (adult) (pediatric); Z99.89 Dependence on other enabling machines and devices; Z86.73 Personal history of transient ischemic attack (TIA), and cerebral infarction without residual deficits; Z79.899 Other long term (current) drug therapy
CPT/HCPCS: 71045; 80053; 81001; 84484; 85025; 93005; 99285; A4216

== ENCOUNTER 2024-11-10 18:19 | Observation (INO) | payer MEDICARE, SELFPAY ==
[2024-11-10] VITALS (11 sets, daily range): BP systolic 126–152; BP diastolic 47–100; PULSE 57–80; RESP 15–24; TEMP 35.9–36.8; O2SAT 86–100; BMI 36.4; BMI 31.1
--- NOTE | 2024-11-10 18:37 | EKG12_ITS ---
Test Reason : CP Blood Pressure : */* mmHG Vent. Rate : 59 BPM Atrial Rate : 59 BPM P-R Int : 172 ms QRS Dur : 94 ms QT Int : 420 ms P-R-T Axes : 64 -29 22 degrees QTcB Int : 415 ms Sinus bradycardia Moderate voltage criteria for LVH, may be normal variant ( R in aVL , Gino product ) Borderline ECG Confirmed by MICKY LOWE, YENNY ([id number]), editorial manager AMBIKA HAYES ([id number]) on 11/12/2024 8:20:16 AM Referred By: Confirmed By: YENNY WEEKS MD
--- NOTE | 2024-11-10 18:40 | RAD_ITS ---
PROCEDURE: CHEST PA AND LATERAL 11/10/2024 REASON FOR EXAM: CHEST PAIN TECHNIQUE: Frontal and lateral views of the chest. COMPARISON: 09/18/2024 FINDINGS: Hardware: None Heart: The heart size is normal. Mediastinum: The mediastinal contour is unremarkable. Lungs: Poor inspiration with some bibasilar atelectasis. Bones: The bones are unremarkable. RAD/Chest PA and Lateral IMPRESSION: Poor inspiration with some bibasilar atelectasis. Reading Location: [id number]
[2024-11-10 19:07] LABS: Absolute Neutrophil Count 5.4 X10^3/uL (2.0-7.7); Basophil# 0.08 X10^3/uL; Basophil% 0.9 % (0-1); Eosinophil# 0.22 X10^3/uL; Eosinophils% 2.4 % (0-5); Hemoglobin 13.9 g/dL (12.0-15.0); Lymphocyte % 26.7 % (19-41); Mean Corp Hgb Conc 32.3 g/dL (32-36); Mean Corpuscular Hgb 28.1 pg (27.0-32.0); Mean Corpuscular Volume 86.9 fL (81-99); Mean Platelet Vol. 10.4 fl (6.2-12.0); NRBC Flagged by Analyzer 0 % (0-5); Neutrophil # 5.37 X10^3/uL (2.7-7.7); Neutrophil % 59.8 % (47-70); Platelet Count 297 K/mm3 (150-450); RBC Distribution Width CV 12.8 % (11.6-14.6); RBC Distribution Width SD 40.1 fl (35.1-43.9); Red Blood Count 4.95 M/mm3 (4.2-5.4)
[2024-11-10 19:33] LABS: Anion Gap 13 (5-15); BUN 13 mg/dL (4-19); BUN/Creat Ratio 18.4 RATIO (10-20); Calcium,Total 10.1 mg/dL (7.6-11.0); Carbon Dioxide 24.8 mmol/L (21.0-32.0); Chloride 104 mmol/L (98-108); Creatinine, Serum 0.72 mg/dL (0.70-1.20); EST Glomerular Filtration Rate 82 (>60); Estimated Creatinine Clearance 48.67 ml/min (50-250); Glucose 92 mg/dL (70-99); Potassium 3.8 mmol/L (3.3-5.1); Sodium Level 141 mmol/L (133-145); Troponin T High Sensitivity 16 ng/L (<=14)
--- NOTE | 2024-11-10 19:50 | ED.VIS.CHEST ---
HPI <RAYMUNDO Quinonez - Last Filed: 11/10/24 21:24> History of Present Illness Chief Complaint: Chest Pain Narrative Narrative: Patient presenting today due to an episode of midsternal chest pain that started this evening while she was watching television. She reports that the pain is a dull sensation and is intermittent, nothing seems to make it better or worse. She denies significant cardiac history. She does have a history of asthma. According to her nephew she had appeared short of breath but was also hyperventilating and anxious when the pain started. Patient now denies feeling short of breath. She is here with her nephew who reports that they are having a hard time taking care of her at home. She has a history of dementia and has become increasingly more difficult to care for. She was previously at [facility] but the family pulled her out due to concerns for the cost of her staying there, they are now willing to work with the facility to figure out a way to allow her to stay there. Patient has had no recent fevers, chills, cough, or illness. PE Risk Factors: Negative for Recent Travel/Surgery, Recent Immobilization or Prior DVT or PE PFS <RAYMUNDO Quinonez - Last Filed: 11/10/24 21:24> [facility] Medical History Chest pain CPAP (continuous positive airway pressure) dependence Sleep apnea Hypoxia Generalized weakness Pneumonia HLD (hyperlipidemia) HTN (hypertension) CKD (chronic kidney disease), stage II Chronic left hip pain Alzheimer dementia SHIRA (obstructive sleep apnea) Obesity (BMI 30.0-34.9) Hypoxia Osteoporosis Non-smoker BiPAP (biphasic positive airway pressure) dependence COPD (chronic obstructive pulmonary disease) Asthma TIA (transient ischemic attack) Home Medications ?Medication ?Instructions ?Recorded ?Last Taken ?Type ezetimibe 10 mg tablet 10 mg PO DAILY cholesterol 07/17/24 Unknown History rosuvastatin 5 mg tablet 5 mg PO DAILY cholesterol 07/17/24 Unknown History acetaminophen 325 mg tablet 650 mg (2 x 325 mg) PO Q6H PRN PRN 09/02/24 Unknown Rx Pain 1-10 Or Fever >100.7 #0 tabs albuterol sulfate 2.5 mg/3 mL 2.5 mg (3 mL) inhalation Q2H PRN 09/02/24 Unknown Rx (0.083 %) solution for nebulization PRN SOB &/OR WHEEZING #0 mL food supplemt, lactose-reduced 120 ml PO 4X/DAY #0 mL 09/02/24 Unknown Rx 0.08 gram-1.5 kcal/mL oral liquid (Ensure Plus High Protein) ipratropium 0.5 mg-albuterol 3 mg 3 ml inhalation Q6HWA.RT #0 mL 09/02/24 Unknown Rx (2.5 mg base)/3 mL nebulization soln melatonin 10 mg sublingual tablet 10 mg PO QHS #0 tabs 09/02/24 Unknown Rx donepezil 10 mg tablet 10 mg PO DAILY 11/10/24 Unknown History furosemide 20 mg tablet 20 mg PO DAILY 11/10/24 Unknown History nitroglycerin 0.2 mg/hr 1 patch topical DAILY 11/10/24 Unknown History transdermal 24 hour patch potassium chloride 10 mEq 10 meq PO DAILY 11/10/24 Unknown History capsule,extended release Allergy/AdvReac Type Severity Reaction Status Date / Time aspirin Allergy Unknown PT UNSURE Verified 11/10/24 18:26 OF REACTION cefaclor Allergy PT UNSURE Verified 11/10/24 18:26 OF REACTION chlorzoxazone Allergy PT UNSURE Verified 11/10/24 18:26 OF REACTION codeine Allergy PT UNSURE Verified 11/10/24 18:26 OF REACTION erythromycin base Allergy PT UNSURE Verified 11/10/24 18:26 OF REACTION guanfacine Allergy PT UNSURE Verified 11/10/24 18:26 OF REACTION naproxen Allergy PT UNSURE Verified 11/10/24 18:26 OF REACTION orphenadrine Allergy PT UNSURE Verified 11/10/24 18:26 OF REACTION oxytetracycline Allergy PT UNSURE Verified 11/10/24 18:26 OF REACTION Penicillins Allergy PT UNSURE Verified 11/10/24 18:26 OF REACTION piroxicam Allergy PT UNSURE Verified 11/10/24 18:26 OF REACTION Sulfa (Sulfonamide Allergy PT UNSURE Verified 11/10/24 18:26 Antibiotics) OF REACTION testosterone Allergy PT UNSURE Verified 11/10/24 18:26 OF REACTION Social History household members: 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 Smoking Status: Never smoker alcohol intake: never substance use type: does not use ROS <RAYMUNDO Quinonez - Last Filed: 11/10/24 21:24> ROS ED Constitutional Constitutional ED: Denies chills or fever(s) Cardiovascular Cardiovascular: Reports chest pain Respiratory/Chest Respiratory/Chest: Denies cough or dyspnea Gastrointestinal Gastrointestinal: Denies abdominal pain, nausea or vomiting Musculoskeletal Musculoskeletal: Denies arthralgias or myalgias Integumentary Denies rash Neurologic Neurologic: Denies weakness EXAM <RAYMUNDO Quinonez - Last Filed: 11/10/24 21:24> Physical Exam Const Vital Signs: 11/10/24 18:21 11/10/24 18:24 11/10/24 18:37 Temperature 96.7 F L Temperature Source Temporal Pulse Rate 70 Respiratory Rate 24 H Respiratory Effort Normal Non-Labored Blood Pressure 152/56 H Blood Pressure Mean 88 Pulse Ox 93 94 Oxygen Delivery Method Room Air Room Air Oxygen Flow Rate (L/min) 11/10/24 19:24 11/10/24 19:30 11/10/24 19:36 Temperature Temperature Source Pulse Rate 59 L 62 Respiratory Rate 24 H 21 H Respiratory Effort Blood Pressure 128/73 H Blood Pressure Mean 84 Pulse Ox 95 87 86 Oxygen Delivery Method Room Air Room Air Oxygen Flow Rate (L/min) 11/10/24 19:36 11/10/24 19:45 11/10/24 20:00 Temperature Temperature Source Pulse Rate 61 68 Respiratory Rate 23 H 15 Respiratory Effort Blood Pressure 137/47 H 126/100 H Blood Pressure Mean 71 110 Pulse Ox 96 96 98 Oxygen Delivery Method Nasal Cannula Nasal Cannula Nasal Cannula Oxygen Flow Rate (L/min) 2 2 2 11/10/24 20:19 11/10/24 20:59 Temperature 98.2 F Temperature Source Pulse Rate 80 58 L Respiratory Rate 24 H 16 Respiratory Effort Blood Pressure 127/52 H 127/47 H Blood Pressure Mean 77 73 Pulse Ox 98 99 Oxygen Delivery Method Nasal Cannula Oxygen Flow Rate (L/min) 2 Positive well nourished, well developed and no apparent distress General Appearance ED: well developed HEENT Reports normocephalic and head/scalp atraumatic Mouth ED: Yes moist mucous membranes normal Eyes PERRL and EOMs intact bilaterally Neck full ROM and supple Chest Wall inspection of chest normal Resp normal respiratory effort and clear to auscultation bilaterally Cardio regular rate and regular rhythm Peripheral Pulses: radial pulses present bilateral 2+ GI soft to palpation, non-tender, non-distended and no masses Back/Spine normal ROM and normal to inspection Extremity normal to inspection and full ROM Neuro oriented x3, CN's II-XII intact bilaterally, moves all extremities, no focal motor deficits and no sensory deficits noted Sensorium / Orientation: awake and alert Psych mental status grossly normal and thought process normal Skin no rashes or lesions noted and no wounds <Dr. Papo Melara MD - Last Filed: 11/10/24 21:45> Physical Exam Const Vital Signs: 11/10/24 18:21 11/10/24 18:24 11/10/24 18:37 Temperature 96.7 F L Temperature Source Temporal Pulse Rate 70 Respiratory Rate 24 H Respiratory Effort Normal Non-Labored Blood Pressure 152/56 H Blood Pressure Mean 88 Pulse Ox 93 94 Oxygen Delivery Method Room Air Room Air Oxygen Flow Rate (L/min) 11/10/24 19:24 11/10/24 19:30 11/10/24 19:36 Temperature Temperature Source Pulse Rate 59 L 62 Respiratory Rate 24 H 21 H Respiratory Effort Blood Pressure 128/73 H Blood Pressure Mean 84 Pulse Ox 95 87 86 Oxygen Delivery Method Room Air Room Air Oxygen Flow Rate (L/min) 11/10/24 19:36 11/10/24 19:45 11/10/24 20:00 Temperature Temperature Source Pulse Rate 61 68 Respiratory Rate 23 H 15 Respiratory Effort Blood Pressure 137/47 H 126/100 H Blood Pressure Mean 71 110 Pulse Ox 96 96 98 Oxygen Delivery Method Nasal Cannula Nasal Cannula Nasal Cannula Oxygen Flow Rate (L/min) 2 2 2 11/10/24 20:19 11/10/24 20:59 Temperature 98.2 F Temperature Source Pulse Rate 80 58 L Respiratory Rate 24 H 16 Respiratory Effort Blood Pressure 127/52 H 127/47 H Blood Pressure Mean 77 73 Pulse Ox 98 99 Oxygen Delivery Method Nasal Cannula Oxygen Flow Rate (L/min) 2 MDM <RAYMUNDO Quinonez - Last Filed: 11/10/24 21:24> [facility] Narrative Medical decision making narrative: Patient presenting today due to an episode of chest pain that occurred this evening. She reports that the pain is now mild, she denies feeling short of breath, O2 saturation 93% on room air, she does wear supplemental O2 at home as needed. Nephew reports that they are having a difficult time caring for her at home, she has become increasingly more difficult due to her dementia. Social work did speak with me, they have had APS involved in the past. She was previously admitted to [facility] but family pulled her out due to concerns for the cost of keeping her there. They are now willing to work with the facility on the financial aspect of things so she can stay there long-term. Cardiac workup obtained, CBC, BMP unremarkable. Initial troponin 16, delta nonsignificant. It has been a long time since she has had any cardiac workup, she would benefit from a stress test. I will speak with the hospitalist regarding admission for placement and further workup of her chest pain. Patient admitted in stable condition. I have personally performed a face to face assessment of the patient and have reviewed the ANGELICA Note. I performed a substantive portion of the visit including all aspects of the following. My aguilar findings include: History is remarkable for chest pressure that was central lead located that started at rest with dyspnea. She had no radiation. Question of diaphoresis. She has no known coronary disease. Son informing that she has been told she has no cardiac disease. She denies fever, chills night sweats. Patient denies history of VTE. He denies leg pain, swelling discoloration. Apparently has not been eating well. Person/family emergency staying with his not caring for her to the son satisfaction. Exam is remarked for an elevated blood pressure. She is tachypneic. She not febrile. She is not hypoxic. Patient is not a good informant. HEENT exam is unremarkable. Heart is regular. Rate is normal. There is no murmur, gallop or rub. Abdomen is soft nontender. Bowel sounds are present normal. Lower extremity exam is no swelling, asymmetry, leg pain distention, palp cord since on the distribution deep venous system. Medical Decision Making with her description of this being chest tightness heaviness dyspnea need to rule out cardiac etiology. Will consult case management as well. Family is not comfortable taking her home because they feels she has not been cared for appropriately. The midlevel's note was reviewed. Other additions or changes: [None] Lab Data Attestation: I reviewed the patient's lab results. Labs: Laboratory Results - last 24 hr 11/10/24 11/10/24 18:27 20:15 WBC 9.0 RBC 4.95 Hgb 13.9 Hct 43.0 MCV 86.9 MCH 28.1 MCHC 32.3 RDW Std Deviation 40.1 RDW Coeff of Jaz 12.8 Plt Count 297 MPV 10.4 Immature Gran % (Auto) 0.200 Neut % (Auto) 59.8 Lymph % (Auto) 26.7 Sabine % (Auto) 10.0 Eos % (Auto) 2.4 Baso % (Auto) 0.9 Absolute Neuts (auto) 5.4 Absolute Lymphs (auto) 2.40 Nucleated RBC % 0 Sodium 141 Potassium 3.8 Chloride 104 Carbon Dioxide 24.8 Anion Gap 13 BUN 13 Creatinine 0.72 Estim Creat Clear Calc 48.67 L Est GFR (MDRD) Non-Af 82 BUN/Creatinine Ratio 18.4 Glucose 92 Calcium 10.1 Troponin T High Sens 16 H D Troponin T Hi Sens 2 Hr 13 Radiography X-Ray: Read by ED Physician Diagnostic Testing: Clinical Impression(s) from Imaging Studies Chest X-Ray 11/10/24 18:40 IMPRESSION: Poor inspiration with some bibasilar atelectasis. Reading Location: [id number] <Dr. Papo Melara MD - Last Filed: 11/10/24 21:45> [facility] MDM Narrative Medical decision making narrative: Patient presenting today due to an episode of chest pain that occurred this evening. She reports that the pain is now mild, she denies feeling short of breath, O2 saturation 93% on room air, she does wear supplemental O2 at home as needed. Nephew reports that they are having a difficult time caring for her at home, she has become increasingly more difficult due to her dementia. Social work did speak with me, they have had APS involved in the past. She was previously admitted to [facility] but family pulled her out due to concerns for the cost of keeping her there. They are now willing to work with the facility on the financial aspect of things so she can stay there long-term. Cardiac workup obtained, CBC, BMP unremarkable. Initial troponin 16, delta is pending. I will speak with the hospitalist regarding admission for placement. I have personally performed a face to face assessment of the patient and have reviewed the ANGELICA Note. I performed a substantive portion of the visit including all aspects of the following. My aguilar findings include: History is remarkable for chest pressure that was central lead located that started at rest with dyspnea. She had no radiation. Question of diaphoresis. She has no known coronary disease. Son informing that she has been told she has no cardiac disease. She denies fever, chills night sweats. Patient denies history of VTE. He denies leg pain, swelling discoloration. Apparently has not been eating well. Person/family emergency staying with his not caring for her to the son satisfaction. Exam is remarked for an elevated blood pressure. She is tachypneic. She not febrile. She is not hypoxic. Patient is not a good informant. HEENT exam is unremarkable. Heart is regular. Rate is normal. There is no murmur, gallop or rub. Abdomen is soft nontender. Bowel sounds are present normal. Lower extremity exam is no swelling, asymmetry, leg pain distention, palp cord since on the distribution deep venous system. Medical Decision Making with her description of this being chest tightness heaviness dyspnea need to rule out cardiac etiology. Will consult case management as well. Family is not comfortable taking her home because they feels she has not been cared for appropriately. The midlevel's note was reviewed. Other additions or changes: [None] History & Record Review Additional record(s) reviewed:: Prior ED visit (Patient was seen September [address] Hilary Carter's note was reviewed. She was discharged to home since her workup was unremarkable.) and Prior labs Lab Data Labs: Laboratory Results - last 24 hr 11/10/24 11/10/24 18:27 20:15 WBC 9.0 RBC 4.95 Hgb 13.9 Hct 43.0 MCV 86.9 MCH 28.1 MCHC 32.3 RDW Std Deviation 40.1 RDW Coeff of Jaz 12.8 Plt Count 297 MPV 10.4 Immature Gran % (Auto) 0.200 Neut % (Auto) 59.8 Lymph % (Auto) 26.7 Sabine % (Auto) 10.0 Eos % (Auto) 2.4 Baso % (Auto) 0.9 Absolute Neuts (auto) 5.4 Absolute Lymphs (auto) 2.40 Nucleated RBC % 0 Sodium 141 Potassium 3.8 Chloride 104 Carbon Dioxide 24.8 Anion Gap 13 BUN 13 Creatinine 0.72 Estim Creat Clear Calc 48.67 L Est GFR (MDRD) Non-Af 82 BUN/Creatinine Ratio 18.4 Glucose 92 Calcium 10.1 Troponin T High Sens 16 H D Troponin T Hi Sens 2 Hr 13 Radiography Diagnostic Testing: Clinical Impression(s) from Imaging Studies Chest X-Ray 11/10/24 18:40 IMPRESSION: Poor inspiration with some bibasilar atelectasis. Reading Location: [id number] Discharge Plan Dx/Rx/DC Orders Clinical Impression: Chest pain, Adult failure to thrive, Dementia, Renal insufficiency Disposition Disposition: Acute Care Hospital [facility] Discharge Date/Time: 11/10/24 21:35
[2024-11-10 20:51] LABS: Troponin T High Sens 2 HR 13 ng/L (<=14)
--- NOTE | 2024-11-10 20:58 | PCM.HP.STD ---
[facility] - General General Date of Admission: 11/10/24 Date of Service: 11/10/24 Chief Complaint: Chest Pain and Worsening Dementia. HPI Narrative YURI QUINTERO, is a 84 F with a past medical history of essential hypertension; on furosemide, hyperlipidemia; on ezetimibe and rosuvastatin, obesity; with BMI of 36.4 this admission, SHIRA; on BiPAP, history of asthma/COPD without history of tobacco abuse; on prn ipratropium-albuterol nebulizers, history of TIA, CKD; stage II, history of Alzheimer's dementia; on donepezil with worsening in spite of being cared for by her family at home, osteoporosis, OA; with fall ~4 months ago onto Left hip with chronic debility who presents to [facility] ER complaining of chest pain and worsening dementia. Ms. Quintero is not a fully reliable historian at this time information was gathered from chart, medical staff and computer. According to the records patient had an episode of midsternal chest pain that started this evening just prior to admission while she was watching television. She reports the chest pain is dull, substernal, intermittent, moderate and nothing seems to make it better or worse. She was also admitted to have some shortness of breath and hyperventilating with anxiety without chest pain was active. She denies a significant history of coronary artery disease or recent cardiac workup. Her nephew reported to the ER provider that his family is having a very hard time taking care of her at home with multiple calls made to Adult Protective Services. She was previously at [facility] but her family pulled out of that facility due to concerns about the cost of her stay - but now they are willing to work with the facility to figure out a way to allow her to stay there. There was no report of fever, chills, nausea, vomiting, diarrhea, headache, rash, other recent illness, other recent injury or recent medication changes. She currently denies chest pain at this time. In the ER she was noted to have a slightly elevated initial troponin T of 16 ng/L followed by a second troponin T of 13 ng/L with a ER provider recommending chemical stress test in addition to worsening dementia with the patient's family unable to care for her at home with plan for permanent placement after this admission. Her other laboratory studies and CXR show no acute pathologic changes. She was admitted to the PCU under observation status for ongoing care for state that is expected to be less than 2 midnights. [facility] Medical History (Updated 11/11/24 @ 00:[address] Niall Leong DO) Obesity (BMI 30.0-34.9) Chest pain CPAP (continuous positive airway pressure) dependence Sleep apnea Hypoxia Generalized weakness Pneumonia HLD (hyperlipidemia) HTN (hypertension) CKD (chronic kidney disease), stage II Chronic left hip pain Alzheimer dementia SHIRA (obstructive sleep apnea) Hypoxia Osteoporosis Non-smoker BiPAP (biphasic positive airway pressure) dependence COPD (chronic obstructive pulmonary disease) Asthma TIA (transient ischemic attack) Home Medications ?Medication ?Instructions ?Recorded ?Last Taken ?Type ezetimibe 10 mg tablet 10 mg PO DAILY cholesterol 07/17/24 Unknown History rosuvastatin 5 mg tablet 5 mg PO DAILY cholesterol 07/17/24 Unknown History acetaminophen 325 mg tablet 650 mg (2 x 325 mg) PO Q6H PRN PRN 09/02/24 Unknown Rx Pain 1-10 Or Fever >100.7 #0 tabs albuterol sulfate 2.5 mg/3 mL 2.5 mg (3 mL) inhalation Q2H PRN 09/02/24 Unknown Rx (0.083 %) solution for nebulization PRN SOB &/OR WHEEZING #0 mL food supplemt, lactose-reduced 120 ml PO 4X/DAY #0 mL 09/02/24 Unknown Rx 0.08 gram-1.5 kcal/mL oral liquid (Ensure Plus High Protein) ipratropium 0.5 mg-albuterol 3 mg 3 ml inhalation Q6HWA.RT #0 mL 09/02/24 Unknown Rx (2.5 mg base)/3 mL nebulization soln melatonin 10 mg sublingual tablet 10 mg PO QHS #0 tabs 09/02/24 Unknown Rx donepezil 10 mg tablet 10 mg PO DAILY 11/10/24 Unknown History furosemide 20 mg tablet 20 mg PO DAILY 11/10/24 Unknown History nitroglycerin 0.2 mg/hr 1 patch topical DAILY 11/10/24 Unknown History transdermal 24 hour patch potassium chloride 10 mEq 10 meq PO DAILY 11/10/24 Unknown History capsule,extended release Allergy/AdvReac Type Severity Reaction Status Date / Time aspirin Allergy Unknown PT UNSURE Verified 11/10/24 18:26 OF REACTION cefaclor Allergy PT UNSURE Verified 11/10/24 18:26 OF REACTION chlorzoxazone Allergy PT UNSURE Verified 11/10/24 18:26 OF REACTION codeine Allergy PT UNSURE Verified 11/10/24 18:26 OF REACTION erythromycin base Allergy PT UNSURE Verified 11/10/24 18:26 OF REACTION guanfacine Allergy PT UNSURE Verified 11/10/24 18:26 OF REACTION naproxen Allergy PT UNSURE Verified 11/10/24 18:26 OF REACTION orphenadrine Allergy PT UNSURE Verified 11/10/24 18:26 OF REACTION oxytetracycline Allergy PT UNSURE Verified 11/10/24 18:26 OF REACTION Penicillins Allergy PT UNSURE Verified 11/10/24 18:26 OF REACTION piroxicam Allergy PT UNSURE Verified 11/10/24 18:26 OF REACTION Sulfa (Sulfonamide Allergy PT UNSURE Verified 11/10/24 18:26 Antibiotics) OF REACTION testosterone Allergy PT UNSURE Verified 11/10/24 18:26 OF REACTION Social History household members: 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 Smoking Status: Never smoker alcohol intake: never substance use type: does not use ROS ROS Narrative Review of Systems: Constitutional: Patient denies fever or chills. Eyes: Patient denies changes in vision or discharge from eyes. ENT: Patient denies runny nose, sore throat or ear pain. Resp: Patient admits to transient hyperventilation with anxiety due to chest pain as per HPI. CV: Patient admits to chest pain as per HPI but she denies heart racing, palpitations or lower extremity edema. GI: Patient denies abdominal pain, nausea, vomiting, diarrhea or constipation. : Patient denies dysuria, hematuria or urinary frequency. MSK: Patient admits to generalized weakness but she denies arthralgias or myalgias. Skin: Patient denies rash, abscess, wounds or jaundice. Psych: Patient has worsening dementia as per HPI. She denies SI or HI. Neuro: Patient denies headache, paresthesias or focal neurologic deficits. Allergy: Patient denies lip swelling, tongue swelling or urticaria. Hematology: Patient denies easy bleeding or easy bruisability. Endocrinology: Patient denies polyuria, polydipsia, polyphagia or heat/cold intolerance. 14 point ROS otherwise negative except for positives noted above in HPI. Vital Signs Vital Signs Vital Signs: 11/10/24 18:21 11/10/24 18:24 11/10/24 18:37 Temperature 96.7 F L Temperature Source Temporal Pulse Rate 70 Respiratory Rate 24 H Respiratory Effort Normal Non-Labored Blood Pressure 152/56 H Blood Pressure Mean 88 Pulse Ox 93 94 Oxygen Delivery Method Room Air Room Air Oxygen Flow Rate (L/min) 11/10/24 19:24 11/10/24 19:30 11/10/24 19:36 Temperature Temperature Source Pulse Rate 59 L 62 Respiratory Rate 24 H 21 H Respiratory Effort Blood Pressure 128/73 H Blood Pressure Mean 84 Pulse Ox 95 87 86 Oxygen Delivery Method Room Air Room Air Oxygen Flow Rate (L/min) 11/10/24 19:36 11/10/24 19:45 11/10/24 20:00 Temperature Temperature Source Pulse Rate 61 68 Respiratory Rate 23 H 15 Respiratory Effort Blood Pressure 137/47 H 126/100 H Blood Pressure Mean 71 110 Pulse Ox 96 96 98 Oxygen Delivery Method Nasal Cannula Nasal Cannula Nasal Cannula Oxygen Flow Rate (L/min) 2 2 2 11/10/24 20:19 Temperature Temperature Source Pulse Rate 80 Respiratory Rate 24 H Respiratory Effort Blood Pressure 127/52 H Blood Pressure Mean 77 Pulse Ox 98 Oxygen Delivery Method Nasal Cannula Oxygen Flow Rate (L/min) 2 Weight Weight: 168 lb 6.931 oz Body Mass Index (BMI) 36.4 Physical Exam Const alert and no apparent distress Constitutional Narrative: Obese and confused. General Appearance: cooperative Orientation / Consciousness: confused HEENT normocephalic, head/scalp atraumatic, hearing grossly normal bilaterally and moist oral mucous membranes Eyes PERRL, EOMs intact bilaterally and conjunctivae normal Neck no lymphadenopathy, supple and no JVD Resp normal respiratory effort, no retractions, no use of accessory muscles and clear to auscultation bilaterally Cardio regular rate and regular rhythm GI normal to inspection, nondistended, normoactive bowel sounds, soft to palpation, non-tender and non-distended GI Narrative: Obese. Extremity normal to inspection, full ROM and no clubbing, cyanosis or edema Skin Skin Narrative: Patient has evidence of rash, abscess, wounds or jaundice. Neuro CN's II-XII intact bilaterally, moves all extremities and no focal motor deficits Sensorium / Orientation: awake, alert, oriented to person and oriented to place Speech: speech normal Psych affect normal Results Medical Records Data Attestation: I reviewed the patient's medical records Lab / Micro Data Attestation: I reviewed the patient's lab results. 11/10/24 18:27 11/10/24 18:27 Labs: Laboratory Results - last 24 hr 11/10/24 18:27: WBC 9.0, RBC 4.95, Hgb 13.9, Hct 43.0, MCV 86.9, MCH 28.1, MCHC 32.3, RDW Std Deviation 40.1, RDW Coeff of Jaz 12.8, Plt Count 297, MPV 10.4, Immature Gran % (Auto) 0.200, Neut % (Auto) 59.8, Lymph % (Auto) 26.7, [place] % (Auto) 10.0, Eos % (Auto) 2.4, Baso % (Auto) 0.9, Absolute Neuts (auto) 5.4, Absolute Lymphs (auto) 2.40, Nucleated RBC % 0, Sodium 141, Potassium 3.8, Chloride 104, Carbon Dioxide 24.8, Anion Gap 13, BUN 13, Creatinine 0.72, Estim Creat Clear Calc 48.67 L, Est GFR (MDRD) Non-Af 82, BUN/Creatinine Ratio 18.4, Glucose 92, Calcium 10.1, Troponin T High Sens 16 H D 11/10/24 20:15: Troponin T Hi Sens 2 Hr 13 Imaging Radiology Impression Chest X-Ray 11/10/24 18:40 IMPRESSION: Poor inspiration with some bibasilar atelectasis. Reading Location: [facility] Assessment & Plan Assessment/Plan (1) Chest pain: QUALIFIERS: Chest pain type: unspecified Qualified Code(s): R07.9 - Chest pain, unspecified (2) Alzheimer dementia: QUALIFIERS: Alzheimer's disease onset: unspecified onset Dementia behavioral or psychological symptom: with agitation Dementia severity: severe Qualified Code(s): G30.9 - Alzheimer's disease, unspecified; F02.C11 - Dementia in other diseases classified elsewhere, severe, with agitation (3) Obesity (BMI 30.0-34.9): PLAN: Plan 1. Chest Pain; with a slightly elevated initial troponin T of 16 ng/L followed by a second troponin T of 13 ng/L with a ER provider recommending chemical stress test - Admit to PCU under observation status. Check chemical stress test to evaluate for underlying ischemia. Serialize troponin. Patient had recent echocardiogram in June 2024 for that revealed LVEF 70% with no regional wall motion abnormalities and 1+ mild tricuspid valve insufficiency so new echocardiogram will not be ordered this admission. Patient has listed allergy to aspirin (?) so she will be given 1 dose of clopidogrel. Give acetaminophen as needed for ptus-db-hpndxups (level 1-5/10) pain or fever. Give morphine IV as needed for severe (level 6-10/10) pain. 2. Acute Worsening of Chronic Alzheimer's Dementia with the patient's family unable to effectively care for her at home any longer complicating #1 - Resume donepezil as previous. We we will consult PT/OT and case management see this patient on rounds in the a.m. for further recommendations regarding permanent ECF placement without appreciated in advance. Check TSH, B12, folate, UGO and UDS to evaluate for reversible causes of confusion. Otherwise, continue donepezil as previous and monitor for improvement. 3. Obesity; with BMI of 36.4 this admission plus SHIRA; on BiPAP adding to the burden of disease outlined from #1 & #2 - Weight also recommended. Continue nocturnal BiPAP as previous. This complicates her case and may hamper her recovery. 4. Essential hypertension; on furosemide - Maintain current treatment plus give as needed IV hydralazine for systolic blood pressure greater than 160 mmHg. 5. Hyperlipidemia; on ezetimibe and rosuvastatin - Resume current therapy and check lipid profile in light of #1. 6. History of asthma/COPD without history of tobacco abuse; on prn ipratropium-albuterol nebulizers - Stable and without evidence of acute flare at this time. Continue as needed nebulizers. 7. History of TIA - Noted. 8. CKD; stage II - Stable. 9. Osteoporosis - Stable. 10. OA; with fall ~4 months ago onto Left hip with chronic debility - Give acetaminophen as needed for pain as outlined in #1. 11. DVT prophylaxis - Enoxaparin 30 mg sq daily. Total time: Approximately (but not less than) 70 minutes. Charges/Coding Visit Charges OBSV E&M: 54242 Observ/hosp same date L2
--- NOTE | 2024-11-10 21:01 | ED.RN ---
wears oxygen as needed at home
--- NOTE | 2024-11-10 21:05 | CM.ED ---
Social Work Patient presented to the ED with concerns of chest pain. Patients nephew was at patients bedside. Patient has been living with her sister in law and sister in law has been the primary customer care consultant. Nephew met with SW and stated that his mother, patients sister in law, is no longer able to care for patient as she is elderly and has her own health concerns and nephew is gone for long periods of time with his job. Nephew states that they no longer feel safe having the patient at home and believe that she is in need of alf care. SW answered questions regarding the process for admitting to a alf. Nephew states that their preference is [facility]. Mago Up, GOODS LAYER, SEED CLEANING MANAGER
--- NOTE | 2024-11-10 21:56 | EKG12_ITS ---
Test Reason : AM EKG Blood Pressure : */* mmHG Vent. Rate : 52 BPM Atrial Rate : 52 BPM P-R Int : 168 ms QRS Dur : 94 ms QT Int : 440 ms P-R-T Axes : 81 -28 19 degrees QTcB Int : 409 ms Sinus bradycardia Minimal voltage criteria for LVH, may be normal variant ( [place] product ) Borderline ECG When compared with ECG of 10-Nov-2024 22:42, MANUAL COMPARISON REQUIRED DATA IS UNCONFIRMED Confirmed by MICKY LOWE, YENNY ([id number]), assistant film editor KEITH DURAN ([id number]) on 11/12/2024 8:55:56 AM Referred By: Confirmed By: YENNY WEEKS MD
[2024-11-10 22:33] LABS: Alcohol, Blood (Medical)-Serum < 10.1 mg/dL (<=10.0)
[2024-11-10] MEDS: Ipratropium/Albuterol Sulfate 3 ML AMPUL.NEB INHALATION (22:55)
[2024-11-10 23:07] LABS: Vitamin B12 322 pg/mL (180-914)
[2024-11-10] MEDS: MELATONIN 10 MG TABLET PO (23:13)
[2024-11-10] MEDS: Ensure Plus High Protein 120 ML LIQUID PO (23:13)
[2024-11-10] MEDS: Enoxaparin 30 MG/0.3 ML Syringe SC (23:13)
[2024-11-11] VITALS (12 sets, daily range): BP systolic 121–136; BP diastolic 52–78; PULSE 48–78; RESP 15–18; TEMP 36.2–36.8; O2SAT 94–100
--- NOTE | 2024-11-11 00:20 | EKG12_ITS ---
Test Reason : CP ADMIT Blood Pressure : */* mmHG Vent. Rate : 62 BPM Atrial Rate : 62 BPM P-R Int : 166 ms QRS Dur : 96 ms QT Int : 424 ms P-R-T Axes : 62 -26 32 degrees QTcB Int : 430 ms Normal sinus rhythm Moderate voltage criteria for LVH, may be normal variant ( R in aVL , [place] product ) Borderline ECG When compared with ECG of 10-Nov-2024 18:27, MANUAL COMPARISON REQUIRED DATA IS UNCONFIRMED Confirmed by MICKY LOWE, YENNY ([id number]), videotape editor KEITH DURAN ([id number]) on 11/12/2024 8:56:18 AM Referred By: Confirmed By: YENNY WEEKS MD
[2024-11-11] MEDS: Clopidogrel Bisulfate 75 MG Tablet PO (05:56)
[2024-11-11] MEDS: 0.9% Saline Lock 10 ML Syringe IV ×2 (05:57→09:21)
[2024-11-11 06:13] LABS: Absolute Neutrophil Count 4.6 X10^3/uL (2.0-7.7); Basophil# 0.06 X10^3/uL; Basophil% 0.8 % (0-1); Eosinophil# 0.29 X10^3/uL; Eosinophils% 3.7 % (0-5); Hematocrit 39.4 % (37-47); Hemoglobin 12.4 g/dL (12.0-15.0); Lymphocyte % 25.8 % (19-41); Mean Corp Hgb Conc 31.5 g/dL (32-36); Mean Corpuscular Volume 88.9 fL (81-99); Mean Platelet Vol. 10.5 fl (6.2-12.0); Monocyte# 0.79 X10^3/uL; Monocyte% 10.2 % (0-10); NRBC Flagged by Analyzer 0 % (0-5); Neutrophil % 59.4 % (47-70); Platelet Count 257 K/mm3 (150-450); RBC Distribution Width SD 42.5 fl (35.1-43.9); Red Blood Count 4.43 M/mm3 (4.2-5.4); White Blood Count 7.8 K/mm3 (4.4-11.0)
[2024-11-11 06:45] LABS: Cholesterol 122 mg/dL (<=200); High Density Lipoprotein 39 mg/dL; Low Density Lipoprotein Calc. 56 mg/dL; Triglycerides 132 mg/dL; Very Low Density Lipoprotein 26 mg/dL (5-40); cholesterol:hdl ratio screen 3.11
[2024-11-11 06:48] LABS: ALB/GLOB Ratio 1.5 RATIO (0.9-2.4); AST(SGOT) 17 U/L (<=31); Alanine Aminotransfer ALT/SGPT 8 U/L (<=34); Albumin, Serum 3.4 g/dL (3.4-4.8); Alkaline Phosphatase 115 U/L (35-104); Anion Gap 10 (5-15); BUN 17 mg/dL (4-19); BUN/Creat Ratio 28.6 RATIO (10-20); Calcium,Total 10.1 mg/dL (7.6-11.0); Carbon Dioxide 23.7 mmol/L (21.0-32.0); Chloride 107 mmol/L (98-108); Creatinine, Serum 0.58 mg/dL (0.70-1.20); EST Glomerular Filtration Rate 90 (>60); Estimated Creatinine Clearance 47.36 ml/min (50-250); Globulin 2.3 g/dL (2.2-4.2); Glucose 99 mg/dL (70-99); Potassium 3.7 mmol/L (3.3-5.1); Protein, Total 5.7 g/dL (5.9-8.4); Sodium Level 140 mmol/L (133-145); Total Bilirubin 0.21 mg/dL (0.00-1.30)
[2024-11-11 07:02] LABS: Troponin T High Sensitivity 15 ng/L (<=14)
[2024-11-11 07:06] LABS: FOLATES,SERUM (FOLIC ACID) 9.94 ng/mL (4.60-34.80)
--- NOTE | 2024-11-11 07:11 | PN.HOSP_ITS ---
Reason for Visit Reason for Visit: Chest pain Subjective Subjective Patient states she has not had any chest pain. We discussed that her stress test was normal. We discussed that overall plan is for placement at discharge. Patient had no questions at this time. Objective Data Objective Data Vital Signs: Vital Signs Temp Pulse Resp BP Pulse Ox O2 Del Method O2 Flow Rate 97.4 F L 53 L 15 122/52 H 100 CPAP 2 11/11/24 03:42 11/11/24 03:42 11/11/24 03:42 11/11/24 03:42 11/11/24 03:42 11/11/24 04:11 11/10/24 22:42 FiO2 21 11/11/24 03:15 Oxygen Flow Rate (L/min) 2 Oxygen Delivery Method CPAP Weight: 72.5 kg Body Mass Index (BMI) 31.1 Lab / Micro Data 11/11/24 05:25 11/11/24 05:25 Labs: Laboratory Results - last 24 hr 11/10/24 18:27: WBC 9.0, RBC 4.95, Hgb 13.9, Hct 43.0, MCV 86.9, MCH 28.1, MCHC 32.3, RDW Std Deviation 40.1, RDW Coeff of Jaz 12.8, Plt Count 297, MPV 10.4, Immature Gran % (Auto) 0.200, Neut % (Auto) 59.8, Lymph % (Auto) 26.7, [place] % (Auto) 10.0, Eos % (Auto) 2.4, Baso % (Auto) 0.9, Absolute Neuts (auto) 5.4, Absolute Lymphs (auto) 2.40, Nucleated RBC % 0, Sodium 141, Potassium 3.8, Chloride 104, Carbon Dioxide 24.8, Anion Gap 13, BUN 13, Creatinine 0.72, Estim Creat Clear Calc 48.67 L, Est GFR (MDRD) Non-Af 82, BUN/Creatinine Ratio 18.4, Glucose 92, Calcium 10.1, Troponin T High Sens 16 H D, Vitamin B12 322, TSH 3.070 11/10/24 20:15: Troponin T Hi Sens 2 Hr 13, Ethyl Alcohol < 10.1 11/11/24 05:25: WBC 7.8, RBC 4.43, Hgb 12.4, Hct 39.4, MCV 88.9, MCH 28.0, MCHC 31.5 L, RDW Std Deviation 42.5, RDW Coeff of Jaz 13.0, Plt Count 257, MPV 10.5, Immature Gran % (Auto) 0.100, Neut % (Auto) 59.4, Lymph % (Auto) 25.8, [place] % (Auto) 10.2 H, Eos % (Auto) 3.7, Baso % (Auto) 0.8, Absolute Neuts (auto) 4.6, Absolute Lymphs (auto) 2.00, Nucleated RBC % 0, Sodium 140, Potassium 3.7, Chloride 107, Carbon Dioxide 23.7, Anion Gap 10, BUN 17, Creatinine 0.58 L, E stim Creat Clear Calc 47.36 L, Est GFR (MDRD) Non-Af 90, BUN/Creatinine Ratio 28.6 H, Glucose 99, Calcium 10.1, Total Bilirubin 0.21, AST 17, ALT 8, Alkaline Phosphatase 115 H, Troponin T High Sens 15 H D, Total Protein 5.7 L, Albumin 3.4, Globulin 2.3, Albumin/Globulin Ratio 1.5, Triglycerides 132, Cholesterol 122, LDL Cholesterol, Calc 56, VLDL Cholesterol 26, HDL Cholesterol 39 L, Cholesterol/HDL Ratio 3.11, Serum Folate 9.94 Radiography Diagnostic Testing: Radiology Impression Chest X-Ray 11/10/24 18:40 IMPRESSION: Poor inspiration with some bibasilar atelectasis. Reading Location: [facility] Physical Exam Const alert, no apparent distress and well nourished; Negative for average body habitus or healthy appearing Constitutional Narrative: Elderly, obese, white female, sitting up in a chair at the bedside watching television eating dinner, appears comfortable, nontoxic, oriented to self, place and month but not year HEENT head/scalp atraumatic and moist oral mucous membranes HEENT Narrative: Mallampati 3, no thrush Head and Scalp: normocephalic Resp normal respiratory effort, no retractions, no use of accessory muscles and clear to auscultation bilaterally Auscultation: Negative for rales, rhonchi or wheezes Cardio regular rate, regular rhythm, S1 normal heart sound, S2 normal heart sound, no murmurs, no rub, no gallops and no clicks GI normal to inspection, nondistended, normoactive bowel sounds, soft to palpation and non-tender Extremity no clubbing, cyanosis or edema Extremity Narrative: 2+ pedal and radial pulses Neuro moves all extremities and no focal motor deficits Neuro Narrative: Generalized weakness noted with no focal deficits Sensorium / Orientation: awake, alert, oriented to person and oriented to place Psych affect normal Psych Narrative: Extremely pleasant, eye contact is good, patient interacts appropriately and appreciative of care Assessment & Plan Assessment/Plan (1) Chest pain: QUALIFIERS: Chest pain type: unspecified Qualified Code(s): R07.9 - Chest pain, unspecified (2) Adult failure to thrive: (3) Elevated troponin: PLAN: Plan Chest pain - Noncardiac - Symptoms resolved and stress test was negative for areas of reversible ischemia with an estimated EF of 51% Troponin elevation - Elevation is very minimal - Etiology is unclear however may be related to some mildly elevated blood pressure with systolic pressures in the 150s in the emergency department - Stress test was negative Generalized weakness/debility/adult failure to thrive - Per family she is becoming increasingly difficult to care for at home due to progressive memory loss - They would like her to go for long-term care at a local nursing facility - Social work is helping apply for Medicaid number - Medically stable for discharge and as soon as Medicaid number has been obtained should be able to discharge to local facility - PT/OT are following while she is hospitalized SHIRA - Patient is noncompliant with PAP therapy due to intolerance - Will utilize as needed oxygen if needed History of COPD - No acute exacerbation currently - stable on room air - Continue nebulizers as ordered Essential hypertension/hyperlipidemia - Continue home statin -continue home Zetia - Continue home Lasix History of TIA - Continue to control secondary risk factors as able -Patient with aspirin allergy Alzheimer's type dementia - Continue home donepezil Insomnia - Continue scheduled melatonin Obesity - BMI 31.2 -Recommend weight loss -complicates treatment, prognosis, outcomes DVT prophylaxis - Continue subcu Lovenox Charges/Coding Visit Charges Inpatient E&M: 42668 Subs Hosp L2
--- NOTE | 2024-11-11 08:41 | NURSING ---
This Rn received call from stress lab that pt was nasueated. Stress lab informed that pt had no nausea meds on sep but this rn would reach out to md. Stress lab told this RN to get order and it was okay to wait and give nausea medication until pt returned to floor. Md notified orders placed
[2024-11-11] MEDS: Ondansetron 4 MG/2 ML Vial IV (09:18)
[2024-11-11] MEDS: Potassium Chloride Oral Tablet 10 MEQ PO (10:41)
[2024-11-11] MEDS: Ezetimibe 10 MG Tablet PO (10:41)
[2024-11-11] MEDS: Donepezil HCl 10 MG Tablet PO (10:41)
--- NOTE | 2024-11-11 10:47 | CASEMGMT ---
Spoke with patients nephew/HC POA (Jorge) to complete SCHULER form. SCHULER form explained to Jorge who voiced understanding. Original form placed in pt?s chart and copy provided to patient. Cori Mo, Discharge Planning Asst
--- NOTE | 2024-11-11 11:04 | CASEMGMT ---
Discharge Planning Referral sent to [facility]. Cori Mo DC Planning Asst.
--- NOTE | 2024-11-11 11:43 | CASEMGMT ---
Therapy is not recommending any further therapy for patient. KENYATTA called patient's nephew Jorge. KENYATTA introduced self and role at [facility]. KENYATTA explained that insurance is not going to pay for nursing facility as patient does not need therapy. KENYATTA explained that patient will have to go to a [facility] private pay or on pending Medicaid. Jorge said patient will need to go on Medicaid. KENYATTA explained that [facility] has an individual named Clarisa that will call him to get that process started. Jorge said that would be fine. KENYATTA then called Clarisa and asked her to please call Jorge. Family told ED SW that they would prefer [facility] so a referral has been sent to [facility]. Roselyn Mahoney FABRICATION ENGINEERCarolyn SHEFFIELD
--- NOTE | 2024-11-11 12:00 | CASEMGMT ---
[facility] has accepted pt for ltc with pending eliceo. They have asked that ELICEO partha be completed, filed, and pending number be issued. SW updated. Cori Mo DC Planning Asst.
--- NOTE | 2024-11-11 12:07 | STRESSREP ---
Stress Test Report Pharmacologic myocardial perfusion stress test. 84-year-old lady with a history of chest pain Resting EKG demonstrates sinus bradycardia with a rate of 57 bpm. Resting blood pressure is 144/48 mmHg. 0.4 mg of regadenoson was infused per usual protocol followed by rapid intravenous saline flush injection. Continuous EKG monitoring was performed. The maximum heart rate was 100 bpm which was 72% of max impacted heart rate the maximum workload was 1 metabolic equivalent. At rest there were no ST or T wave changes noted to suggest ischemia and at peak infusion nonspecific ST changes were noted which did not meet the criteria for ischemia. No clinical angina is noted. The final blood pressure was 132/52 mmHg. Myocardial perfusion protocol. 12.0 mCi of technetium 99m sestamibi was injected at rest. 0.4 mg of regadenoson was infused per usual protocol. At peak infusion 36.0 mCi of technetium 99m sestamibi was injected stress images were obtained stress and rest images were reconstructed and compared in the short axis vertical long and horizontal long axis. Gated images were also obtained. Perfusion SPECT analysis: Review of the stress images demonstrate normal uptake of tracer noted in all areas of the myocardium. The resting images similar demonstrated normal uptake of tracer noted in all areas of the myocardium. No areas of reversibility are noted to suggest ischemia and no previous infarct is noted. Gated SPECT analysis: The gated ejection fraction is 51%. Conclusion: Normal pharmacologic myocardial perfusion stress test. Preserved ejection fraction.
[2024-11-11] MEDS: Ipratropium/Albuterol Sulfate 3 ML AMPUL.NEB INHALATION ×2 (13:07→19:42)
[2024-11-11] MEDS: Nitroglycerin 0.2 MG Patch TD (13:27)
[2024-11-11] MEDS: Furosemide 20 MG Tablet PO (13:27)
--- NOTE | 2024-11-11 13:44 | CASEMGMT ---
Social work Patient's nephew, Jorge, presented to the [facility] ED stating Jorge had an appointment with a corrections caseworker. This SW was contacted who stated not having an appointment with anyone scheduled, but SW went to ED waiting room to meet Jorge and see how Jorge could be helped. Jorge stated not having a name of who Jorge was intending to meet with, so SW called Roselyn PRATER on patient's floor. Roselyn stated not having anything scheduled with Jorge, but to check with Clarisa from [employer] who was going to help Jorge apply patient for Medicaid. This SW called Clarisa with [employer] and told of Jorge's presentation. Clarisa stated ability to come to ED waiting room to help Jorge. Jorge updated by this SW. No further needs identified. Lashay [place], DIRECT CARE COUNSELOR, UNLOAD ASSOCIATE
--- NOTE | 2024-11-11 14:19 | CHAPLAIN ---
Type of Pastoral Visit _x__ Initial Visit ___ Follow-up Visit ___ On-call Visit ___ General Patient Visit ___ Spiritual Assessment ___ Family Conference ___ Bereavement ___ Rapid Response ___ Code Blue ___ Other (describe below) Pastoral Care Referral From _x__ Patient ___ Family ___ Nurse ___ Physician ___ Exhibit Cleaner ___ Optometric Tech ___ Other (describe below) Sacrament/Intervention _x__ Active listening ___ Anointing ___ Spiritism ___ Bereavement ___ Communion ___ Britney exploration ___ ___ Life review _x__ Prayer ___ Reconciliation ___ Sacrament of Sick ___ Supportive presence ___ Wedding ___ Other (describe below) Pastoral Comments patient starts the visit by saying that she doesn't have her hearing aids and that she cannot hear well; talked loudly to the patient and she appeared to follow the conversation accurately; 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
--- NOTE | 2024-11-11 15:19 | CASEMGMT ---
Clarisa met with patient's nephew and assisted him in completing a Medicaid application for patient. Roselyn Mahoney KNOCKOUT WORKER YOHANNES
[2024-11-11 16:50] LABS: Amphetamine Urine NEGATIVE (<1000 ng/mL); Barbiturate Urine NEGATIVE (< 200 ng/mL); Benzodiazepine Urine NEGATIVE (< 200 ng/mL); Buprenorphine Urine NEGATIVE (< 200 ng/mL); Cocaine Urine NEGATIVE (< 300 ng/mL); Fentanyl, Urine NEGATIVE; Methadone Urine NEGATIVE (< 300 ng/mL); Opiates Urine NEGATIVE (< 300 ng/mL); Oxycodone, Urine NEGATIVE (< 100 ng/mL); PCP Urine NEGATIVE (< 25 ng/mL); THC Urine NEGATIVE (< 50 ng/mL)
[2024-11-11] MEDS: Ensure Plus High Protein 120 ML LIQUID PO ×2 (17:18→21:28)
[2024-11-11] MEDS: Atorvastatin Calcium 10 MG Tablet PO (21:29)
[2024-11-11] MEDS: MELATONIN 10 MG TABLET PO (21:29)
[2024-11-12] VITALS (7 sets, daily range): BP systolic 116–127; BP diastolic 43–73; PULSE 52–84; RESP 16–18; TEMP 36.5–36.8; O2SAT 94–95
--- NOTE | 2024-11-12 03:57 | CPS ---
pt refused cpap tonight.
[2024-11-12] MEDS: Enoxaparin 40 MG/0.4 ML Syringe SC (06:20)
[2024-11-12] MEDS: Ipratropium/Albuterol Sulfate 3 ML AMPUL.NEB INHALATION ×2 (07:13→13:13)
--- NOTE | 2024-11-12 09:00 | PCM.PN.HOSP ---
Reason for Visit Reason for Visit: Diagnoses Obesity, class 1 (11/10/24) Dementia in other diseases classified elsewhere, severe, with agitation (11/10/24) Alzheimer's disease, unspecified (11/10/24) Chest pain, unspecified (11/10/24) Adult failure to thrive (11/10/24) Other specified abnormal findings of blood chemistry (11/10/24) Objective Data Objective Data Vital Signs: Vital Signs Temp Pulse Resp BP Pulse Ox O2 Del Method O2 Flow Rate 97.7 F L 58 L 18 127/73 H 94 Room Air 2 11/12/24 03:48 11/12/24 07:14 11/12/24 07:14 11/12/24 03:48 11/12/24 07:14 11/12/24 07:14 11/11/24 09:23 FiO2 21 11/11/24 03:15 Oxygen Flow Rate (L/min) 2 Oxygen Delivery Method Room Air Weight: 72.5 kg Body Mass Index (BMI) 31.1 Intake & Output: Intake and Output for Last 24 Hours 11/10/24 11/11/24 11/12/24 23:59 23:59 23:59 Intake Total 840 / 840 Balance 840 / 840 Lab / Micro Data 11/11/24 05:25 11/11/24 05:25 Labs: Laboratory Results - last 24 hr 11/10/24 15:43: Urine Opiates Screen NEGATIVE, U Buprenorphine Qual NEGATIVE, Ur Oxycodone Screen NEGATIVE, Urine Methadone Screen NEGATIVE, Urine Fentanyl Screen NEGATIVE, Ur Barbiturates Screen NEGATIVE, Ur Phencyclidine Scrn NEGATIVE, Ur Amphetamines Screen NEGATIVE, U Benzodiazepines Scrn NEGATIVE, Urine Cocaine Screen NEGATIVE, U Cannabinoids Screen NEGATIVE
[2024-11-12] MEDS: Donepezil HCl 10 MG Tablet PO (10:13)
[2024-11-12] MEDS: Furosemide 20 MG Tablet PO (10:14)
[2024-11-12] MEDS: Potassium Chloride Oral Tablet 10 MEQ PO (10:14)
[2024-11-12] MEDS: Clopidogrel Bisulfate 75 MG Tablet PO (10:16)
[2024-11-12] MEDS: Nitroglycerin 0.2 MG Patch TD (10:17)
[2024-11-12] MEDS: Ezetimibe 10 MG Tablet PO (10:18)
[2024-11-12] MEDS: Acetaminophen 325 MG Tablet 650 MG PO (10:18)
[2024-11-12] MEDS: Ensure Plus High Protein 120 ML LIQUID PO ×2 (10:20→14:39)
[2024-11-12] MEDS: Ondansetron 4 MG/2 ML Vial IM (10:57)
--- NOTE | 2024-11-12 12:01 | CASEMGMT ---
Discharge Planning [place] pending number issued. [facility] updated and notified that pt will discharge today. Cori Mo DC Planning Asst.
--- NOTE | 2024-11-12 12:32 | PCM.DC.SUM ---
Providers Date of Admission: 11/10/24 Date of Discharge: 11/12/24 Primary Care Physician: Dr. James Leach DO Reason For Visit: CHEST PAIN & WORSENING DEMENTIA Diagnosis Discharge Diagnosis (1) Chest pain: Status: Acute Code(s): R07.9 - Chest pain, unspecified Qualifiers: Chest pain type: unspecified Qualified Code(s): R07.9 - Chest pain, unspecified (2) Adult failure to thrive: Status: Acute Code(s): R62.7 - Adult failure to thrive (3) Elevated troponin: Status: Acute Code(s): R79.89 - Other specified abnormal findings of blood chemistry Medications at Discharge Home Medications ezetimibe 10 mg tablet 10 mg PO DAILY cholesterol 07/17/24 rosuvastatin 5 mg tablet 5 mg PO DAILY cholesterol 07/17/24 acetaminophen 325 mg tablet 650 mg (2 x 325 mg) PO Q6H PRN PRN Pain 1-10 Or Fever >100.7 #0 tabs 09/02/24 albuterol sulfate 2.5 mg/3 mL (0.083 %) solution for nebulization 2.5 mg (3 mL) inhalation Q2H PRN PRN SOB &/OR WHEEZING #0 mL 09/02/24 food supplemt, lactose-reduced 0.08 gram-1.5 kcal/mL oral liquid (Ensure Plus High Protein) 120 ml PO 4X/DAY #0 mL 09/02/24 ipratropium 0.5 mg-albuterol 3 mg (2.5 mg base)/3 mL nebulization soln 3 ml inhalation Q6HWA.RT #0 mL 09/02/24 melatonin 10 mg sublingual tablet 10 mg PO QHS #0 tabs 09/02/24 donepezil 10 mg tablet 10 mg PO DAILY 11/10/24 furosemide 20 mg tablet 20 mg PO DAILY 11/10/24 nitroglycerin 0.2 mg/hr transdermal 24 hour patch 1 patch topical DAILY 11/10/24 potassium chloride 10 mEq capsule,extended release 10 meq PO DAILY 11/10/24 ondansetron HCl 8 mg tablet 8 mg PO Q8H PRN PRN Nausea/Vomiting #0 tabs 11/12/24 Hospital Course Operations None Procedures EKG, Nuclear stress test and - (Chest x-ray) Summary of Care Provided Minutes Spent on Discharge: 36 Hospital Course: Mrs. Purdy is an 84-year-old white female who presented to the emergency department [facility] on 11/10/2024 with a chief complaint of chest pain and worsening dementia. On the day of admission she had an episode of midsternal chest pain that started that evening. It was reported to be dull, substernal, intermittent and moderate in intensity. She had no exacerbating or relieving factors associated with it. She denied any nausea, vomiting, or shortness of breath. She did have some tachypnea due to anxiety. She has no previous coronary disease. Her nephew reports the emergency department that his family was having a hard time taking care of her at home with multiple calls made to Adult Protective Services. She has previously been sent for [facility] but her family pulled her out due to concerns of the cost. On presentation they were willing to try to work with the facility to figure out another way for her allowed to stay at a nursing facility. Vital signs on presentation showed a temperature of 96.7, heart rate 70, respiratory was 24, blood pressure 152/56 and pulse ox with 93% room air. Her CBC was completely unremarkable. Her chemistry panel was unremarkable. Her initial troponin was 16 with a delta of 13-1/3 troponin of 15. Given the minimal elevation in her troponin she was admitted for stress test. EKG showed no ischemic changes and chest x-ray was unremarkable. Stress test was performed on 11/11/2022 and showed an EF of 51% with normal uptake and no areas of mild reversibility indicative of ischemia. She did not complain of any further chest pain for her hospital course. She was evaluated by physical and Occupational Therapy and no skilled needs were identified. Medicaid number was applied for and received on 11/12/2024. She was able to be discharged to [facility] under intermediate care in stable condition on 11/12/2024. Unfortunately was unable to verify CODE STATUS during her hospitalization. Discharge diagnoses: Chest pain-noncardiac Mild troponin elevation secondary to elevated blood pressure Generalized weakness Debility Adult failure to thrive Alzheimer's type dementia SHIRA-noncompliant History of COPD Essential hypertension For lipidemia History of TIA Insomnia Obesity Physical Exam Narrative Patient states she is a little bit nauseated which seems to be happening intermittently with her. She has been eating well. No other complaints. States she did not sleep well last night Const alert, no apparent distress and well nourished; Negative for average body habitus or healthy appearing Constitutional Narrative: Elderly, obese, white female, lying in bed in left side-lying, watching television, appears comfortable, nontoxic, oriented to self, place and month but not year, skilled nursing professional at bedside. Refused BiPAP last night General Appearance: cooperative, comfortable, well kempt and well developed Orientation / Consciousness: confused Nutritional Appearance: obese HEENT normocephalic, head/scalp atraumatic, hearing grossly normal bilaterally and moist oral mucous membranes HEENT Narrative: Mallampati 3, no thrush Eyes PERRL, EOMs intact bilaterally and conjunctivae normal Eyes Narrative: No scleral icterus Neck no lymphadenopathy and supple Neck Narrative: Trachea midline, neck is short and thick Resp normal respiratory effort, no retractions, no use of accessory muscles and clear to auscultation bilaterally Auscultation: Negative for rales, rhonchi or wheezes Cardio regular rate, regular rhythm, S1 normal heart sound, S2 normal heart sound, no murmurs, no rub, no gallops and no clicks GI normal to inspection, nondistended, normoactive bowel sounds, soft to palpation and non-tender GI Narrative: Large protuberant abdomen Extremity no clubbing, cyanosis or edema Extremity Narrative: 2+ pedal and radial pulses Skin skin turgor normal, no jaundice, no petechiae and no mottling Neuro moves all extremities and no focal motor deficits Neuro Narrative: Generalized weakness noted with no focal deficits Sensorium / Orientation: awake, alert, oriented to person and oriented to place Speech: speech normal Psych affect normal Psych Narrative: Extremely pleasant, eye contact is good, patient interacts appropriately and appreciative of care Weight / BMI Weight Weight: 72.5 kg Body Mass Index (BMI) 31.1 ABG / Lab / Microbiology Data 11/11/24 05:25 11/11/24 05:25 Laboratory: Laboratory Results - last 24 hr 11/10/24 15:43: Urine Opiates Screen NEGATIVE, U Buprenorphine Qual NEGATIVE, Ur Oxycodone Screen NEGATIVE, Urine Methadone Screen NEGATIVE, Urine Fentanyl Screen NEGATIVE, Ur Barbiturates Screen NEGATIVE, Ur Phencyclidine Scrn NEGATIVE, Ur Amphetamines Screen NEGATIVE, U Benzodiazepines Scrn NEGATIVE, Urine Cocaine Screen NEGATIVE, U Cannabinoids Screen NEGATIVE D/C Instructions Discharge Diet: Low fat / Low cholesterol DC O2, CPAP, BIPAP Needs Home O2 Discharge instructions: No Meaningful Use Info Meaningful Use Meaningful Use Diagnoses (Choose all that apply): None applicable Ischemic Stroke Statin Dosing Therapy Reference: STATIN DOSE THERAPY REFERENCE: * Patients > 75 years receive moderate or high dose statin therapy. * Patients 75 years or YOUNGER should receive HIGH intensity statin dose unless contraindicated. You will be required to document reason for non-treatment if statin daily dose does not meet guidelines. HIGH DOSE STATIN THERAPY DAILY Atorvastatin > than or = to 40 mg Rosuvastatin > than or = to 20 mg Amlodipine + Atorvastatin > than or = to 2.5/40 mg Ezetimibe + Simvastatin 10/80 mg Simvastatin 80mg Discharge Plan Admission Admit Date/Time: 11/10/24 21:17 Primary Reason for Your Visit: Chest pain Attending Provider: Courtney Kumari Primary Care Provider: James Leach Consulting Providers: Niall Leong Discharge Orders/Prescriptions Prescriptions: New ondansetron HCl 8 mg Tablet 8 mg PO Q8H PRN PRN (Reason: Nausea/Vomiting) Qty: 0 0RF Continued ezetimibe 10 mg tablet 10 mg PO DAILY rosuvastatin 5 mg tablet 5 mg PO DAILY acetaminophen 325 mg Tablet 650 mg PO Q6H PRN PRN (Reason: Pain 1-10 Or Fever >100.7) Qty: 0 0RF ipratropium-albuterol 0.5 mg-3 mg(2.5 mg base)/3 mL Solution For Nebulization 3 ml inhalation Q6HWA.RT Qty: 0 0RF albuterol sulfate 2.5 mg /3 mL (0.083 %) Solution For Nebulization 2.5 mg inhalation Q2H PRN PRN (Reason: SOB &/OR WHEEZING) Qty: 0 0RF melatonin 10 mg Tablet, Sublingual 10 mg PO QHS Qty: 0 0RF Ensure Plus High Protein 0.08 gram-1.5 kcal/mL Liquid 120 ml PO 4X/DAY Qty: 0 0RF potassium chloride 10 mEq capsule, extended release 10 meq PO DAILY nitroglycerin 0.2 mg/hr patch 24 hour 1 patch topical DAILY donepezil 10 mg tablet 10 mg PO DAILY furosemide 20 mg tablet 20 mg PO DAILY Referrals / Follow Up: James Leach DO [Primary Care Provider] - Disposition Disposition (needs filled in before D/C Order can be placed): NonSkilled NH/Intermed Care Charges/Coding Visit Charges Inpatient E&M: 19692 SNF Disch >30 Min
--- NOTE | 2024-11-12 13:13 | PHA.DC.MR.R ---
Pharmacy [place] Med Reconciliation Pharmacy Service has performed discharge medication reconciliation for this patient. The patient's discharge medication list was reviewed for discrepancies and discrepancies were resolved. Medications at Discharge Home Medications ezetimibe 10 mg tablet 10 mg PO DAILY cholesterol 07/17/24 rosuvastatin 5 mg tablet 5 mg PO DAILY cholesterol 07/17/24 acetaminophen 325 mg tablet 650 mg (2 x 325 mg) PO Q6H PRN PRN Pain 1-10 Or Fever >100.7 #0 tabs 09/02/24 albuterol sulfate 2.5 mg/3 mL (0.083 %) solution for nebulization 2.5 mg (3 mL) inhalation Q2H PRN PRN SOB &/OR WHEEZING #0 mL 09/02/24 food supplemt, lactose-reduced 0.08 gram-1.5 kcal/mL oral liquid (Ensure Plus High Protein) 120 ml PO 4X/DAY #0 mL 09/02/24 ipratropium 0.5 mg-albuterol 3 mg (2.5 mg base)/3 mL nebulization soln 3 ml inhalation Q6HWA.RT #0 mL 09/02/24 melatonin 10 mg sublingual tablet 10 mg PO QHS #0 tabs 09/02/24 donepezil 10 mg tablet 10 mg PO DAILY 11/10/24 furosemide 20 mg tablet 20 mg PO DAILY 11/10/24 nitroglycerin 0.2 mg/hr transdermal 24 hour patch 1 patch topical DAILY 11/10/24 potassium chloride 10 mEq capsule,extended release 10 meq PO DAILY 11/10/24 ondansetron HCl 8 mg tablet 8 mg PO Q8H PRN PRN Nausea/Vomiting #0 tabs 11/12/24
--- NOTE | 2024-11-12 13:38 | CASEMGMT ---
KENYATTA spoke with Clarisa and patient's pending Medicaid case number is [id number]. SW completed a PASRR for patient as the plan is to stay at [facility]. Patient's nephew will transport patient. Plan: d/c to [facility] under intermediate level of care on a PASRR. Roselyn SHEFFIELD
--- NOTE | 2024-11-12 13:40 | PCM.TXEXTCAR ---
Diet Diet Order/Speech Therapy: 11/11/24 14:24 Diet: Cardiac - Heart Healthy Routine Orders/Code Status Suppository Frequency: Daily PRN Routine Lab Work: CBC (as needed) and BMP (as needed) Code Status: Full Code DC O2, CPAP, BIPAP needs Home O2 Discharge instructions: No Suggestions for Active Care Change Position every (hours): 2 Hours to sit in a chair: 3 Times a day to sit in chair: 2 Therapies Weight Bearing: Full weight bearing Physical Therapy: Eval and Treat Occupational Therapy: Eval and Treat Problem/Diagnosis (1) Chest pain: Status: Acute Code(s): R07.9 - Chest pain, unspecified (2) Adult failure to thrive: Status: Acute Code(s): R62.7 - Adult failure to thrive (3) Elevated troponin: Status: Acute Code(s): R79.89 - Other specified abnormal findings of blood chemistry Allergies/Procedures Done in Hospital Allergies aspirin Allergy (Unknown, Verified 11/10/24 18:26) PT UNSURE OF REACTION cefaclor Allergy (Verified 11/10/24 18:26) PT UNSURE OF REACTION chlorzoxazone Allergy (Verified 11/10/24 18:26) PT UNSURE OF REACTION codeine Allergy (Verified 11/10/24 18:26) PT UNSURE OF REACTION erythromycin base Allergy (Verified 11/10/24 18:26) PT UNSURE OF REACTION guanfacine Allergy (Verified 11/10/24 18:26) PT UNSURE OF REACTION naproxen Allergy (Verified 11/10/24 18:26) PT UNSURE OF REACTION orphenadrine Allergy (Verified 11/10/24 18:26) PT UNSURE OF REACTION oxytetracycline Allergy (Verified 11/10/24 18:26) PT UNSURE OF REACTION Penicillins Allergy (Verified 11/10/24 18:26) PT UNSURE OF REACTION piroxicam Allergy (Verified 11/10/24 18:26) PT UNSURE OF REACTION Sulfa (Sulfonamide Antibiotics) Allergy (Verified 11/10/24 18:26) PT UNSURE OF REACTION testosterone Allergy (Verified 11/10/24 18:26) PT UNSURE OF REACTION Type of Care/Length of Stay Estimated LOS: More Than 30 Days Type of Care Needed: Intermediate Rehab Potential: Fair Prognosis: Fair Additional Orders/Day of Discharge Day of Discharge: 11/12/24 Dietary and Speech Recommendations Dietitian Recommendations/Changes: Advance diet as tolerated to Regular when medically able to optimize oral intakes. Continue 120mL EPHP 4x daily with medpass to promote weight maintenance. Discharge Plan Admission Admit Date/Time: 11/10/24 21:17 Primary Reason for Your Visit: Chest pain Attending Provider: Courtney Kumari Primary Care Provider: James Leach Consulting Providers: Niall Leong Discharge Orders/Prescriptions Prescriptions: New ondansetron HCl 8 mg Tablet 8 mg PO Q8H PRN PRN (Reason: Nausea/Vomiting) Qty: 0 0RF Continued ezetimibe 10 mg tablet 10 mg PO DAILY rosuvastatin 5 mg tablet 5 mg PO DAILY acetaminophen 325 mg Tablet 650 mg PO Q6H PRN PRN (Reason: Pain 1-10 Or Fever >100.7) Qty: 0 0RF ipratropium-albuterol 0.5 mg-3 mg(2.5 mg base)/3 mL Solution For Nebulization 3 ml inhalation Q6HWA.RT Qty: 0 0RF albuterol sulfate 2.5 mg /3 mL (0.083 %) Solution For Nebulization 2.5 mg inhalation Q2H PRN PRN (Reason: SOB &/OR WHEEZING) Qty: 0 0RF melatonin 10 mg Tablet, Sublingual 10 mg PO QHS Qty: 0 0RF Ensure Plus High Protein 0.08 gram-1.5 kcal/mL Liquid 120 ml PO 4X/DAY Qty: 0 0RF potassium chloride 10 mEq capsule, extended release 10 meq PO DAILY nitroglycerin 0.2 mg/hr patch 24 hour 1 patch topical DAILY donepezil 10 mg tablet 10 mg PO DAILY furosemide 20 mg tablet 20 mg PO DAILY Referrals / Follow Up: James Leach DO [Primary Care Provider] - Disposition Disposition (needs filled in before D/C Order can be placed): NonSkilled NH/Intermed Care (1) Chest pain Qualifiers: Chest pain type: unspecified Qualified Code(s): R07.9 - Chest pain, unspecified
--- NOTE | 2024-11-12 13:54 | CASEMGMT ---
Discharge Planning Discharge order, signed med list, and transport time sent to [facility]. Pts family will transport. Nursing updated. Cori Mo DC Planning Asst.
--- NOTE | 2024-11-12 15:00 | NURSING ---
Report called to [facility] to Berenice
--- NOTE | 2024-11-13 09:36 | CASEMGMT ---
BEE HERNANDEZ NOTE: James @ [facility] notified that pt discharged to [facility] yesterday. Pt was active w/them for SN and PT. [place] SWAN RN CM
== END 2024-11-12 12:34 ==
LOC: ED 21:00 → PCU 21:24
PROVIDERS: Physician Assistant; Admitting Provider Internal Medicine; Emergency Provider Emergency Medicine; Visit Provider Internal Medicine
DX: R07.89 Other chest pain (principal); G30.9 Alzheimer's disease, unspecified; F02.80 Dementia in other diseases classified elsewhere, unspecified severity, without behavioral disturbance, psychotic disturbance, mood disturbance, and anxiety; J44.9 Chronic obstructive pulmonary disease, unspecified; I12.9 Hypertensive chronic kidney disease with stage 1 through stage 4 chronic kidney disease, or unspecified chronic kidney disease; N18.2 Chronic kidney disease, stage 2 (mild); R79.89 Other specified abnormal findings of blood chemistry; E78.5 Hyperlipidemia, unspecified; R62.7 Adult failure to thrive; G47.33 Obstructive sleep apnea (adult) (pediatric); E66.9 Obesity, unspecified; F41.9 Anxiety disorder, unspecified; R53.1 Weakness; R53.81 Other malaise; Z68.31 Body mass index [BMI] 31.0-31.9, adult; G47.00 Insomnia, unspecified; Z79.899 Other long term (current) drug therapy; Z86.73 Personal history of transient ischemic attack (TIA), and cerebral infarction without residual deficits; Z91.199 Patient's noncompliance with other medical treatment and regimen due to unspecified reason
CPT/HCPCS: 36415; 71046; 78452; 80048; 80053; 80061; 80307; 82077; 82607; 82746; 84443; 84484; 85025; 93005; 93017; 94640; 94660; 96372; 96374; 97162; 97166; 97530; 97535; 97802; 99221; 99285; A9500; A4216; G0378; J2405; J2785

== ENCOUNTER → 2024-12-29 | Outpatient (REF) | payer MEDICARE, SELFPAY ==
[2024-12-29 08:05] LABS: Hematocrit 37.5 % (37-47); Hemoglobin 12.2 g/dL (12.0-15.0); Mean Corp Hgb Conc 32.5 g/dL (32-36); Mean Corpuscular Hgb 27.2 pg (27.0-32.0); Mean Corpuscular Volume 83.7 fL (81-99); Mean Platelet Vol. 10.1 fl (6.2-12.0); Platelet Count 247 K/mm3 (150-450); RBC Distribution Width CV 13.4 % (11.6-14.6); Red Blood Count 4.48 M/mm3 (4.2-5.4); White Blood Count 17.7 K/mm3 (4.4-11.0)
[2024-12-29 08:18] LABS: Anion Gap 10 (5-15); BUN 26 mg/dL (4-19); Calcium,Total 9.6 mg/dL (7.6-11.0); Carbon Dioxide 22.9 mmol/L (21.0-32.0); Chloride 106 mmol/L (98-108); Cholesterol 84 mg/dL (<=200); Creatinine, Serum 0.82 mg/dL (0.70-1.20); EST Glomerular Filtration Rate 71 (>60); Glucose 109 mg/dL (70-99); High Density Lipoprotein 25 mg/dL; Low Density Lipoprotein Calc. 42 mg/dL; Potassium 3.1 mmol/L (3.3-5.1); Sodium Level 139 mmol/L (133-145); Triglycerides 85 mg/dL; Very Low Density Lipoprotein 17 mg/dL (5-40); cholesterol:hdl ratio screen 3.35
== END ==
LOC: OLS.WCC 06:35
PROVIDERS: Referring Provider Family Medicine; Visit Provider Family Medicine
DX: I10 Essential (primary) hypertension (principal); Z79.899 Other long term (current) drug therapy
CPT/HCPCS: 36415; 80048; 80061; 85027

== ENCOUNTER → 2025-01-02 | Outpatient (REF) | payer MEDICARE, SELFPAY ==
--- OUTSIDE RECORDS SUMMARY | 2025-01-02 04:00 | XMS RPT_ITS | CCD ---
Author Organization [facility] Care Team Providers Care Drum Sander Name Role Phone MARCELA CRUZ Unavailable Unavailable MARCELA CRUZ Unavailable Unavailable MARCELA CRUZ Unavailable Unavailable MARCELA CRUZ Unavailable Unavailable MARCELA CRUZ Unavailable Unavailable MARCELA CRUZ Unavailable Unavailable MARCELA CRUZ MD Primary Care Physician JAMES LEACH DO Primary Care Physician HANY JEFFRIES JAMES E Attending Unavailable HANY DO, JAMES E Primary Care Unavailable LEACH DO, JAMES E Attending Unavailable LEACH DO, JAMES E Primary Care Unavailable LEACH DO, JAMES E Attending Unavailable LEACH DO, JAMES E Primary Care Unavailable TARA BORJA MD Attending Unavailable LEACH DO, JAMES E Primary Care Unavailable BIN HODGSON MD Attending Unavail able LEACH DO, JAMES E Primary Care Unavailable LEACH DO, JAMES E Primary Care Unavailable LEACH DO, JAMES E Attending Unavailable LEACH DO, JAMES E Primary Care Unavailable LEACH DO, JAMES E Attending Unavailable LEACH DO, JAMES E Primary Care Unavailable LEACH DO, JAMES E Attending Unavailable LEACH DO, JAMES E Attending Unavailable LEACH DO, JAMES E Primary Care Unavailable LEACH DO, JAMES E Primary Care Unavailable LEACH DO, JAMES E Attending Unavailable LEACH DO, JAMES E Primary Care Unavailable ANDREW LOWE, SHAHRIAR Attending Unavailable ANDREW LOWE, SHAHRIAR Admitting Unavailable LEACH DO, JAMES E Attending Unavailable LEACH DO, JAMES E Primary Care Unavailable LEACH DO, JAMES E Primary Care Unavailable LEACH DO, JAMES E Attending Unavailable LEACH DO, JAMES E Primary Care Unavailable LEACH DO, JAMES E Attending Unavailable LEACH DO, JAMES E Primary Care Unavailable LEACH DO, JAMES E Attending Unavailable LEACH DO, JAMES E Primary Care Unavailable LEACH DO, JAMES Hays Attending Unavailable HANY DO, JAMES Hays Attending Unavailable LEACH DO, JAMES E Primary Care Unavailable LEACH DO, JAMES E Primary Care Unavailable 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 Clement Referring Provider Le DO, Dr. Clement Emergency Provider de Judah JEFFRIES, Dr. Tierney Admit Provider Unavail able de Judah JEFFRIES, Dr. Tierney Other Provider Unavail able Danay LOWE, Dr. Jennifer Mora Attending Provider Hany JEFFRIES, Dr. Ramirez Primary Care Provider Hany LOWE, Dr. Ramirez Primary Care Provider Unav janeen Jon MD, Dr. Jennifer Mora Other Provider Roxanne LOWE, Dr. Seo Attending Provider Darryn DO, Dr. Block Attending Provider Darryn JEFFRIES, Dr. Block Emergency Provider Lopez DO, Dr. Jeff Emergency Provider Danay LOWE, Dr. Jennifer Mora Admit Provider Rhiannon LOWE, Dr. Alba Vega Attending Provider Rhiannon LOWE, Dr. Alba Vega Other Provider Anne JEFFRIES, Dr. Mcdaniel Attending Provider Anne JEFFRIES, Dr. Mcdaniel Emergency Provider Rashid LOWE, Dr. Hernández Attending Provider Rashid LOWE, Dr. Hernández Admit Provider Rashid LOWE, Dr. Hernández Other Provider Dr. Niall Loco MD Attending Provider Unavaila Dr. Niall Wolf MD Other Provider Unavailable Jimbo JEFFRIES, Dr. Will Attending Provider Dr. Suman Choi DO Other Provider Dr. James Leach MD Attending Provider Unavail able Abundio Tyson MD Attending Provider Abundio Tyson MD Emergency Provider Dr. Papo Melara MD Emergency Provider Leong DO, Dr. Tierney Attending Provider Unav ailable White, Jennifer L Admitting Unavailable White, Jennifer L Consulting Unavailable Leach, James Primary Care Unavailable White, Jennifer L Attending Unavailable Koram, Alba Silvia Attending Unavailable Koram, Alba Silvia Consulting Unavailable Leach, James Primary Care Unavailable Niall Leong Consulting Unavailable Niall Leong Attending Unavailable Niall Leong Admitting Unavailable Leach, James Primary Care Unavailable Roxanne, Dahlgren Attending Unavailable Roxanne, Dahlgren Referring Unavailable Leach, Ajmes Primary Care Unavailable Abundio Tyson Attending Unavailable Leach, James Primary Care Unavailable Betty Mike Attending Unavailable Niall Loco Attending Unavailable Betty Mike Consulting Unavailable Betty Mike Admitting Unavailable Niall Loco Consulting Unavailable Hany FOLEY, James Primary Care Unavailable Niall Leong Attending Unavailable Urbano Mir Referring Unavailable iNall Leong Admitting Unavailable Niall Leong Consulting Unavailable Danay Jennifer L Consulting Unavailable Jennifer Jon L Attending Unavailable Leach, James Primary Care Unavailable Umair Cates Attending Unavailable Leach, James Primary Care Unavailable Niall Leong Consulting Unavailable Courtney Kumari Attending Unavailable Niall Leong Admitting Unavailable Leach, James Primary Care Unavailable Suman Choi Attending Unavailable Betty Mike Admitting Unavailable Betty Mike Consulting Unavailable Niall Loco Consulting Unavailable Leach, James Primary Care Unavailable Urbano Mir Referring Unavailable Niall Leong Admitting Unavailable Niall Leong Consulting Unavailable Jennifer Jon L Attending Unavailable Leach OLS, James Primary Care Unavailable Roxanne, Rayray Attending Unavailable Rayray Oliveira Attending Unavailable Courtney Kumari Consulting Unavailable Courtney Kumari Attending Unavailable White, Jennifer L Admitting Unavailable White, Jennifer L Consulting Unavailable Leach, James Primary Care Unavailable Koram, Alba Silvia Attending Unavailable Leach, James Primary Care Unavailable Ramin Atkins Attending Unavailable Ramin Atkins Referring Unavailable Leach James FOLEY Attending Unavailable Leach, James Primary Care Unavailable Violeta Rodríguez Attending Unavailable Leach, James Primary Care Unavailable Leach, James Primary Care Unavailable Niall Loco Attending Unavailable Betty Mike Consulting Unavailable Betty Mike Admitting Unavailable Niall Loco Consulting Unavailable Suman Choi Attending Unavailable Suman Choi Consulting Unavailable Allergies Allergy Classification Reported Allergen(s) Allergy Type Date of Onset Reaction(s) Facility Aspirin (2 sources) Aspirin; Translations: [aspirin] Drug Allergy [facility] Cephalosporins (antibiotic) (2 sources) Cefaclor; Translations: [cefaclor] Drug Allergy [facility] Chlorzoxazone (2 sources) Chlorzoxazone; Translations: [chlorzoxazone] Drug Allergy [facility] Doxycycline (2 sources) Doxycycline; Translations: [doxycycline] Drug Allergy [facility] Macrolides (antibiotic) (2 sources) Erythromycin; Translations: [erythromycin] Drug Allergy [facility] NSAIDs (2 sources) Naproxen; Translations: [naproxen] Drug Allergy [facility] Opioid Agonists (2 sources) Codeine; Translations: [codeine] Drug Allergy [facility] Orphenadrine (2 sources) Orphenadrine; Translations: [orphenadrine] Drug Allergy [facility] Oxytetracycline / Polymyxin B (2 sources) Oxytetracycline / Polymyxin B; Translations: [oxytetracycline-po lymyxin B ophthalmic] Drug Allergy [facility] Penicillins (antibiotic) (2 sources) Penicillin; Translations: [penicillin] Drug Allergy [facility] Sulfonamides (antibiotic) (2 sources) Sulfonamide; Translations: [sulfa drugs] Drug Allergy [facility] Testosterone (2 sources) Testosterone; Translations: [testosterone] Drug Allergy [facility] (20 sources) Aspirin; Translations: [aspirin] Drug Allergy [address] [place] [address] (20 sources) Cefaclor; Translations: [cefaclor] Drug Allergy [address] [place] [address] (20 sources) Chlorzoxazone; Translations: [chlorzoxazone] Drug Allergy [address] [place] [address] (20 sources) Codeine; Translations: [codeine] Drug Allergy [facility] (20 sources) Doxycycline; Translations: [doxycycline] Drug Allergy [facility] (20 sources) Erythromycin; Translations: [erythromycin] Drug Allergy 5 [facility] (20 sources) Naproxen; Translations: [naproxen] Drug Allergy 5 [facility] (20 sources) Orphenadrine; Translations: [orphenadrine] Drug Allergy 5 [facility] (20 sources) Oxytetracycline / Polymyxin B; Translations: [oxytetracycline-po lymyxin B ophthalmic] Drug Allergy [facility] (20 sources) Penicillin; Translations: [penicillin] Drug Allergy [facility] (20 sources) Seafood Food allergy 9 [facility] (20 sources) Sulfonamides (Antibiotic); Translations: [sulfa drugs] Drug allergy [facility] (20 sources) Testosterone; Translations: [testosterone] Drug Allergy 5 [facility] (1 source) guanFACINE Drug Allergy 5 [facility] (1 source) Oxytetracycline Drug Allergy 5 [facility] (1 source) Penicillins Allergy to substance 5 [facility] (1 source) Piroxicam Drug Allergy 5 [facility] (1 source) Sulfonamides (Antibiotic) Allergy to substance 5 [facility] (1 source) Aspirin Drug Allergy 5 [facility] (1 source) Cefaclor Drug Allergy 5 [facility] (1 source) Chlorzoxazone Drug Allergy 5 [facility] (1 source) Codeine Drug Allergy 5 [facility] (1 source) guanFACINE Drug Allergy 5 [facility] (1 source) Naproxen Drug Allergy 5 [facility] (1 source) Orphenadrine Drug Allergy 5 [facility] (1 source) Oxytetracycline Drug Allergy 5 [facility] (1 source) Penicillins Drug allergy (disorder) 5 [facility] (1 source) Piroxicam Drug Allergy 5 [facility] (1 source) Sulfonamides (Antibiotic) Drug allergy (disorder) 5 [facility] (1 source) Testosterone Drug Allergy 5 [facility] (1 source) erythromycin base Drug allergy (disorder) 5 [facility] Medications Current Medications Medication Drug Class(es) Dates Sig (Normalized) Sig (Original) acetaminophen 325 mg oral tablet (1 source) Start: 09-02-2024 albuterol 0.83 mg/ml inhalation solution (6 sources) beta2-Adrenergic Agonist Start: 09-02-2024 Start: 07-17-2024 End: 09-02-2024 Start: 01-29-2020 take 1 puff(s) by in halation every four hours as needed for wheezing ProAir HFA MDI (90 mcg/inh) inhalation aerosol 1 puff(s), Inhalation, q4h, PRN as needed for wheezing, Please give 3 inhalers. Enough for 3 months. 3 refills., # 8.5 gram(s), 0 Refill(s), Pharmacy: [facility], 152, cm, 01/05/20 15:49:00 EDT, Height, kg, 01/05/20 15:49:00 EDT, Dosing We... Start Date: 01/29/20 Status: Ordered albuterol 0.833 mg/ml / ipratropium bromide 0.167 mg/ml inhalation solution (20 sources) Anticholinergic, beta2-Adrenergic Agonist Start: 07-17-2024 End: 09-02-2024 Start: 05-07-2024 take 1 dose by inhal ation four times daily as needed for wheezing albuterol-ipratropium 2.5 mg-0.5 mg/3 mL inhalation solution Dose = 3 mL, Inhalation, QID, PRN as needed for shortness of breath or wheezing, # 120 EA, 0 Refill(s) Start Date: 05/07/24 Status: Ordered Start: 01-31-2023 DuoNeb Dose = 3 mL, Nebulized, QID, PRN Wheezing, 0 Refill(s) Start Date: 01/31/23 Status: Ordered Start: 11-27-2019 take 1 dose by inhal ation four times daily albuterol-ipratropium 2.5 mg-0.5 mg/3 mL inhalation solution Dose = 3 mL, Inhalation, QID, # 1,080 mL, 3 Refill(s), Pharmacy: [facility], 151, cm, 07/31/19 13:16:00 EST, Height, kg, 07/31/19 13:16:00 EST, Dosing Weight Start Date: 11/27/19 Status: Ordered Start: 11-27-2019 take 1 dose by inhal ation four times daily albuterol-ipratropium 2.5 mg-0.5 mg/3 mL inhalation solution Dose = 3 mL, Inhalation, QID, # 1,080 mL, 3 Refill(s), Pharmacy: [facility], 151, cm, 07/31/19 13:16:00 EST, Height, kg, 07/31/19 13:16:00 EST, Dosing Weight Start Date: 11/27/19 Status: Ordered Ascorbic Acid (13 sources) Vitamin C Start: 06-07-2020 Vitamin C qDay , 0 Refill(s) Start Date: 06/07/20 Status: Ordered Breo Ellipta 100 mcg-25 mcg/inh inhalation powder (9 sources) Start: 05-06-2024 take 1 dose by inhalation once daily Breo Ellipta 100 mcg-25 mcg/inh inhalation powder Dose = 1 puff(s), Inhalation, qDay Start Date: 05/06/24 Status: Ordered Start: 02-12-2024 take 1 dose by inhal ation once daily Breo Ellipta 100 mcg-25 mcg/inh inhalation powder Dose = 1 puff(s), Inhalation, Daily, # 180 EA, 0 Refill(s), Pharmacy: [facility], 149.5, cm, 02/12/24 10:20:00 EDT, Height, kg, 02/12/24 10:20:00 EDT, Dosing Weight Start Date: 02/12/24 Status: Ordered Start: 01-31-2023 take 1 dose by inhal ation once daily Breo Ellipta 100 mcg-25 mcg/inh inhalation powder Dose = 1 puff(s), Inhalation, Daily, 0 Refill(s) Start Date: 01/31/23 Status: Ordered budesonide 0.25 mg/ml inhalation suspension (11 sources) Corticosteroid Start: 01-31-2023 take 1 dose by inhalation twice daily as needed budesonide 0.5 mg/2 mL inhalation suspension Dose : 0.5 mg = 2 mL, Inhalation, BID, PRN Wheezing, # 120 mL, 0 Refill(s) Start Date: 01/31/23 Status: Ordered Calcium with Vitamin D 500 mg-2.5 mcg (100 intl units) oral tablet, chewable (20 sources) Start: 05-25-2021 take 1 tablet by mouth once daily Calcium with Vitamin D 500 mg-2.5 mcg (100 intl units) oral tablet, chewable tab(s), Chewed, qDay, 0 Refill(s) Start Date: 05/25/21 Status: Ordered Centrum Silver oral tablet (20 sources) Start: 06-07-2020 take 1 tablet by mouth once daily Centrum Silver oral tablet Oral, qDay, 0 Refill(s) Start Date: 06/07/20 Status: Ordered donepezil hydrochloride 10 mg oral tablet (2 sources) Start: 11-10-2024 Start: 08-12-2024 End: 11-10-2024 ezetimibe 10 mg oral tablet (15 sources) Dietary Cholesterol Absorption Inhibitor Start: 07-17-2024 Start: 05-06-2024 ezetimibe 10 m g oral tablet Dose : 10 mg = 1 tab(s), Oral, qDay, # 100 tab(s), 3 Refill(s), Pharmacy: [facility], 149.5, cm, 05/06/24 12:35:00 EDT, Height, kg, 05/06/24 12:35:00 EDT, Dosing Weight Start Date: 05/06/24 Status: Ordered Start: 02-12-2024 ezetimibe 10 m g oral tablet Dose : 10 mg = 1 tab(s), Oral, qDay, # 100 tab(s), 3 Refill(s), Pharmacy: [facility], 149.5, cm, 02/12/24 10:20:00 EDT, Height, kg, 02/12/24 10:20:00 EDT, Dosing Weight Start Date: 02/12/24 Status: Ordered Start: 01-11-2024 ezetimibe 10 m g oral tablet Dose : 10 mg = 1 tab(s), Oral, qDay, # 100 tab(s), 3 Refill(s), Pharmacy: [facility], 149.5, cm, 01/11/24 13:30:00 EDT, Height, kg, 01/11/24 13:30:00 EDT, Dosing Weight Start Date: 01/11/24 Status: Ordered Start: 11-24-2022 ezetimibe 10 m g oral tablet Dose : 10 mg = 1 tab(s), Oral, qDay, # 90 tab(s), 3 Refill(s), Pharmacy: [facility] ([facility] ), 151, cm, 11/24/22 11:26:00 EDT, Height Start Date: 11/24/22 Status: Ordered Fish Oils (20 sources) Start: 05-25-2021 Fish Oil 1000 mg oral capsule Dose : 1,000 mg = 1 cap(s), Oral, qDay, # 90 cap(s), 0 Refill(s) Start Date: 05/25/21 Status: Ordered 60 actuat fluticasone propionate 0.1 mg/actuat / salmeterol 0.05 mg/actuat dry powder inhaler (7 sources) Corticosteroid, beta2-Adrenergi c Agonist Start: 12-01-2021 take 1 dose by inhalation twice daily Wixela Inhub 100 mcg-50 mcg inhalation powder Dose = 1 puff(s), Inhalation, BID, # 60 EA, 0 Refill(s) Start Date: 12/01/21 Status: Ordered Start: 05-25-2021 Advair Diskus 250 mcg-50 mcg inhalation powder 1, Inhalation, BID, # 3 EA, 3 Refill(s), Pharmacy: [facility], 152, cm, 05/25/21 14:23:00 EDT, Height, kg, 05/25/21 14:23:00 EDT, Dosing Weight Start Date: 05/25/21 Status: Ordered Folic Acid (15 sources) Start: 03-01-2022 folic acid qDa y, 0 Refill(s) Start Date: 03/01/22 Status: Ordered furosemide 20 mg oral tablet (20 sources) Loop Diuretic Start: 11-10-2024 Start: 07-17-2024 End: 09-02-2024 Start: 05-06-2024 furosemide 20 mg oral tablet Dose : 20 mg = 1 tab(s), Oral, qDay, # 100 tab(s), 0 Refill(s), Pharmacy: [facility], 149.5, cm, 05/06/24 12:35:00 EDT, Height, kg, 05/06/24 12:35:00 EDT, Dosing Weight Start Date: 05/06/24 Status: Ordered Start: 02-12-2024 furosemide 20 mg oral tablet Dose : 20 mg = 1 tab(s), Oral, qDay, # 100 tab(s), 0 Refill(s), Pharmacy: [facility], 149.5, cm, 02/12/24 10:20:00 EDT, Height, kg, 02/12/24 10:20:00 EDT, Dosing Weight Start Date: 02/12/24 Status: Ordered Start: 11-03-2022 take 1 tablet by radha th once daily furosemide 20 mg oral tablet See Instructions, TAKE 1 TABLET BY MOUTH DAILY, # 90 tab(s), 1 Refill(s), Pharmacy: [facility] ([facility] ), 151, cm, 11/03/22 14:09:00 EDT, Height, kg, 11/03/22 14:09:00 EDT, Dosing Weight Start Date: 11/03/22 Status: Ordered Start: 08-23-2020 take 1 tablet by radha th once daily furosemide 20 mg oral tablet See Instructions, TAKE 1 TABLET BY MOUTH DAILY, # 90 tab(s), 3 Refill(s), Pharmacy: [facility], 152, cm, 01/05/20 15:49:00 EDT, Height, kg, 01/05/20 15:49:00 EDT, Dosing Weight Start Date: 08/23/20 Status: Ordered magnesium oxide 400 mg oral capsule (4 sources) Start: 04-24-2024 magnesium oxid e 400 mg oral capsule Dose : 400 mg = 1 cap(s), Oral, qDay, # 75 cap(s), 0 Refill(s) Start Date: 04/24/24 Status: Ordered meclizine hydrochloride 12.5 mg oral tablet (9 sources) Antiemetic Start: 01-15-2020 take 1 tablet by mouth three times daily as needed for dizziness meclizine 12.5 mg oral tablet See Instructions, TAKE 1 TABLET BY MOUTH 3 TIMES DAILY NEEDED FOR DIZZINESS, # 60 tab(s), 0 Refill(s), Pharmacy: [facility], 152, cm, 01/05/20 15:49:00 EDT, Height, kg, 01/05/20 15:49:00 EDT, Dosing Weight Start Date: 01/15/20 Status: Ordered melatonin 10 mg sublingual tablet (1 source) Start: 09-02-2024 metoprolol tartrate 50 mg oral tablet (9 sources) beta-Adrenergic Oneyda Start: 08-24-2021 take 0.5 tablet by mouth twice daily Metoprolol Succinate ER 50 mg oral TABLET extended release See Instructions, TAKE ONE-HALF TABLET BY MOUTH TWICE DAILY, # 90 tab(s), 3 Refill(s), Pharmacy: [facility], 151, cm, 08/24/21 13:53:00 EST, Height, kg, 08/24/21 13:53:00 EST, Dosing Weight Start Date: 08/24/21 Status: Ordered Start: 07-03-2021 take 0.5 tablet by m outh twice daily Metoprolol Succinate ER 50 mg oral TABLET extended release See Instructions, TAKE ONE-HALF TABLET BY MOUTH TWICE DAILY, # 90 tab(s), 3 Refill(s), Pharmacy: [facility], 151, cm, 06/13/21 13:53:00 EST, Height, kg, 06/13/21 13:53:00 EST, Dosing Weight Start Date: 07/03/21 Status: Ordered Start: 09-20-2020 take 0.5 tablet by m outh twice daily Metoprolol Succinate ER 50 mg oral TABLET extended release See Instructions, TAKE ONE-HALF TABLET BY MOUTH TWICE DAILY, # 30 tab(s), 11 Refill(s), Pharmacy: [facility], 152, cm, 01/05/20 15:49:00 EDT, Height, kg, 01/05/20 15:49:00 EDT, Dosing Weight Start Date: 09/20/20 Status: Ordered naproxen sodium 220 mg oral capsule (4 sources) Nonsteroidal Anti-inflammatory Drug Start: 03-25-2024 Aleve 220 mg oral capsule Dose : 440 mg = 2 cap(s), Oral, Once, 0 Refill(s) Start Date: 03/25/24 Status: Ordered 24 hr nitroglycerin 0.2 mg/hr transdermal system (20 sources) Nitrate Vasodilator Start: 11-10-2024 Start: 07-17-2024 End: 09-02-2024 Start: 02-12-2024 nitroglycerin 0.2 mg/hr transdermal film, extended release Dose = 1 patch(es), Topical, qDay, LEAVE ON FOR 12 TO 14 HOURS THEN REMOVE FOR A NITRATE-FREE INTERVAL OF 10 TO 12 HOURS, # 90 patch(es), 1 Refill(s), [facility]: [facility], 149.5, cm, 02/12/24 10:20:00 EDT, Height, kg, 02/12/24 10:20:00 EDT, Dosing Weight Start Date: 02/12/24 Status: Ordered Start: 01-03-2024 nitroglycerin 0.2 mg/hr transdermal film, extended release Dose = 1 patch(es), Topical, qDay, LEAVE ON FOR 12 TO 14 HOURS THEN REMOVE FOR A NITRATE-FREE INTERVAL OF 10 TO 12 HOURS, # 90 patch(es), 1 Refill(s), Pharmacy: [facility], 149.5, cm, 07/11/23 12:41:00 EST, Height, kg, 07/11/23 12:41:00 EST, Dosing Weight Start Date: 01/03/24 Status: Ordered Start: 03-20-2023 nitroglycerin 0.2 mg/hr transdermal film, extended release Dose = 1 patch(es), Topical, qDay, LEAVE ON FOR 12 TO 14 HOURS THEN REMOVE FOR A NITRATE-FREE INTERVAL OF 10 TO 12 HOURS, # 120 patch(es), 2 Refill(s), Pharmacy: [facility] ([facility]), 148, cm, 02/16/23 16:25:00 EDT, Height, kg, 02/16/23 16:25:00 EDT, Dosing Weight Start Date: 03/20/23 Status: Ordered Start: 05-18-2022 nitroglycerin 0.2 mg/hr transdermal film, extended release Dose = 1 patch(es), Topical, qDay, LEAVE ON FOR 12 TO 14 HOURS THEN REMOVE FOR A NITRATE-FREE INTERVAL OF 10 TO 12 HOURS, # 90 patch(es), 3 Refill(s), Pharmacy: [facility] ([facility]), 151, cm, 03/01/22 13:50:00 EDT, Height, kg, 0... Start Date: 05/18/22 Status: Ordered Start: 06-13-2021 apply 1 dose transde rmal route once daily nitroglycerin 0.2 mg/hr transdermal film, extended release Dose = 1 patch(es), Transdermal, qDay, # 90 patch(es), 3 Refill(s), Pharmacy: [facility], 151, cm, 06/13/21 13:53:00 EST, Height, kg, 06/13/21 13:53:00 EST, Dosing Weight Start Date: 06/13/21 Status: Ordered Start: 11-15-2020 apply 1 dose transde rmal route once daily nitroglycerin 0.2 mg/hr transdermal film, extended release Dose = 1 patch(es), Transdermal, qDay, # 90 patch(es), 3 Refill(s), Pharmacy: [facility], 152, cm, 01/05/20 15:49:00 EDT, Height, kg, 01/05/20 15:49:00 EDT, Dosing Weight Start Date: 11/15/20 Status: Ordered omeprazole 40 mg delayed release oral capsule (3 sources) Proton Pump Inhibitor Start: 03-01-2022 omeprazole 40 mg oral delayed release capsule 0 Refill(s) Start Date: 03/01/22 Status: Ordered oxymetazoline hydrochloride 0.5 mg/ml nasal spray (3 sources) Start: 02-16-2023 take 2 spray(s) nasal route twice daily oxymetazoline 0.05% nasal spray inhale 2 sprays into each nostril twice a day DO NOT USE LONGER THAN 3 DAYS Start Date: 02/16/23 Status: Ordered potassium chloride 10 meq extended release oral capsule (1 source) Start: 11-10-2024 potassium gluconate 2.5 meq oral tablet (20 sources) Start: 05-25-2021 take 1 capsule by mouth once daily potassium gluconate 595 mg (99 mg K+) oral tablet 1 cap, Oral, Daily, 0 Refill(s) Start Date: 05/25/21 Status: Ordered Start: 05-25-2021 potassium gluc bill 595 mg (99 mg K+) oral tablet 0 Refill(s) Start Date: 05/25/21 Status: Ordered rosuvastatin calcium 5 mg or al tablet (20 sources) HMG-CoA Reductase Inhibitor Start: 07-17-2024 Start: 02-12-2024 take 1 tablet by radha th once daily rosuvastatin 5 mg oral tablet See Instructions, TAKE 1 TABLET EVERY DAY, # 100 tab(s), 1 Refill(s), Pharmacy: [facility], 149.5, cm, 02/12/24 10:20:00 EDT, Height, kg, 02/12/24 10:20:00 EDT, Dosing Weight Start Date: 02/12/24 Status: Ordered Start: 01-11-2024 take 1 tablet by radha th once daily rosuvastatin 5 mg oral tablet See Instructions, TAKE 1 TABLET EVERY DAY, # 100 tab(s), 1 Refill(s), Pharmacy: [facility], 149.5, cm, 01/11/24 13:30:00 EDT, Height, kg, 01/11/24 13:30:00 EDT, Dosing Weight Start Date: 01/11/24 Status: Ordered Start: 03-13-2023 take 1 tablet by radha once daily rosuvastatin 5 mg oral tablet See Instructions, TAKE 1 TABLET EVERY DAY, # 90 tab(s), 1 Refill(s), Pharmacy: [facility] ([facility]), 148, cm, 02/16/23 16:25:00 EDT, Height, kg, 02/16/23 16:25:00 EDT, Dosing Weight Start Date: 03/13/23 Status: Ordered Start: 11-03-2022 take 1 tablet by [facility] once daily rosuvastatin 5 mg oral tablet See Instructions, TAKE 1 TABLET EVERY DAY, # 90 tab(s), 1 Refill(s), Pharmacy: [facility] ([facility] 151, cm, 11/03/22 14:09:00 EDT, Height, kg, 11/03/22 14:09:00 EDT, Dosing Weight Start Date: 11/03/22 Status: Ordered Start: 07-03-2021 take 1 tablet by [facility] once daily rosuvastatin 5 mg oral tablet See Instructions, TAKE 1 TABLET EVERY DAY, # 90 tab(s), 2 Refill(s), Pharmacy: [facility], 151, cm, 06/13/21 13:53:00 EST, Height, kg, 06/13/21 13:53:00 EST, Dosing Weight Start Date: 07/03/21 Status: Ordered Start: 12-08-2020 take 1 tablet by [facility] once daily rosuvastatin 5 mg oral tablet See Instructions, TAKE 1 TABLET EVERY DAY, # 90 tab(s), 2 Refill(s), Pharmacy: [facility], 152, cm, 01/05/20 15:49:00 EDT, Height, kg, 01/05/20 15:49:00 EDT, Dosing Weight Start Date: 12/08/20 Status: Ordered 72 hr scopolamine 0.0139 mg/hr transdermal system (4 sources) Anticholinergic Start: 03-25-2024 scopolamine 1 mg/72 hr transdermal film, extended release APPLYT ONE PATCH EVERY 72 HRS TRANSDERMALLY Start Date: 03/25/24 Status: Ordered traMADol hydrochloride 50 mg oral tablet (7 sources) Opioid Agonist Start: 12-28-2021 take 1 tablet by mouth twice daily traMADol 50 mg oral tablet See Instructions, TAKE 1 TABLET TWICE DAILY, # 180 tab(s), 0 Refill(s), Pharmacy: [facility] ([facility]), Degenerative polyarthritis, 151, cm, 12/01/21 14:30:00 EDT, Height, 94, kg, 12/01/21 14:30:00 EDT, Dosing Weight Start Date: 12/28/21 Status: Ordered Start: 06-07-2021 take 1 tablet by radha th twice daily traMADol 50 mg oral tablet See Instructions, TAKE 1 TABLET TWICE DAILY, # 180 tab(s), 0 Refill(s), Pharmacy: [facility], Degenerative polyarthritis, 151.5, cm, 06/07/21 15:05:00 EST, Height, 95.6, kg, 06/07/21 15:05:00 EST, Dosing Weight Start Date: 06/07/21 Status: Ordered Start: 05-24-2020 take 1 tablet by radha th twice daily traMADol 50 mg oral tablet See Instructions, TAKE 1 TABLET TWICE DAILY, # 180 tab(s), 0 Refill(s), [facility]: [facility], Degenerative polyarthritis, 152, cm, 01/05/20 15:49:00 EDT, Height, 92.5, kg, 01/05/20 15:49:00 EDT, Dosing Weight Start Date: 05/24/20 Status: Ordered Wixela Inhub 100 mcg-50 mcg inhalation powder (4 sources) Start: 05-25-2021 Wixela Inhub 1 00 mcg-50 mcg inhalation powder 0 Refill(s) Start Date: 05/25/21 Status: Ordered zinc acetate 50 mg oral caps ule (20 sources) Start: 02-12-2024 zinc (as aceta te) 50 mg oral capsule Dose : 50 mg = 1 cap(s), Oral, TID, # 90 cap(s), 0 Refill(s), [facility]acy: [facility], 149.5, cm, 02/12/24 10:20:00 EDT, Height, kg, 02/12/24 10:20:00 EDT, Dosing Weight Start Date: 02/12/24 Status: Ordered Start: 06-07-2020 zinc (as aceta te) 50 mg oral capsule Dose : 50 mg = 1 cap(s), Oral, TID, # 250 cap(s), 0 Refill(s) Start Date: 06/07/20 Status: Ordered (1 source) Start: 09-02-2024 Completed/Discontinued Medications Medication Drug Class(es) Dates Sig (Normalized) Sig (Original) Aspirin (20 sources) Platelet Aggregation Inhibitor, Nonsteroidal Anti-inflammatory Drug Start: 08-12-2024 End: 09-02-2024 Start: 05-28-2009 take 1 dose by mouth once leroy y aspirin Dose : 81 mg =, PO, Daily, 0 Refill(s), current med (Hx) Start Date: 05/28/09 Status: Ordered Start: 05-28-2009 aspirin 81 mg, PO, Daily, 0, 0 Start Date: 05/28/09 Status: Ordered diclofenac sodium 0.01 mg/mg topical gel (11 sources) Nonsteroidal Anti-inflammatory Drug Start: 02-16-2023 End: 03-02-2023 diclofenac 1% topical gel Apply 1 partha, Topical, QID, # 100 gram(s), 0 Refill(s), Pharmacy: [id number], Gel, 148, cm, 02/16/23 16:25:00 EDT, Height, 84.7, kg, 02/16/23 16:25:00 EDT, Dosing Weight Start Date: 02/16/23 Stop Date: 03/02/23 Status: Ordered guaiFENesin 20 mg/ml oral solution (1 source) Start: 07-19-2024 End: 09-02-2024 hydroCHLOROthiazide 25 mg / triamterene 37.5 mg oral capsule (15 sources) Potassium-sparing Diuretic, Thiazide Diuretic Start: 07-17-2024 End: 09-02-2024 Start: 02-12-2024 take 1 capsule by mouth once daily hydrochlorothiazide-triamterene 25 mg-37 .5 mg oral capsule Dose = 1 cap(s), Oral, Daily, # 100 cap(s), 1 Refill(s), Pharmacy: [facility], Dizziness Meniere disease, 149.5, cm, 02/12/24 10:20:00 EDT, Height, kg, 02/12/24 10:20:00 EDT, Dosing Weight Start Date: 02/12/24 Status: Ordered Start: 01-11-2024 take 1 capsule by mouth once daily hydrochlorothiazide-triamterene 25 mg-37 .5 mg oral capsule Dose = 1 cap(s), Oral, Daily, # 100 cap(s), 1 Refill(s), Pharmacy: [facility], Dizziness Meniere disease, 149.5, cm, 01/11/24 13:30:00 EDT, Height, kg, 01/11/24 13:30:00 EDT, Dosing Weight Start Date: 01/11/24 Status: Ordered Start: 03-13-2023 take 1 capsule by mouth once daily hydrochlorothiazide-triamterene 25 mg-37 .5 mg oral capsule Dose = 1 cap(s), Oral, Daily, # 90 cap(s), 1 Refill(s), Pharmacy: [facility] ([facility]), Dizziness Meniere disease, 148, cm, 02/16/23 16:25:00 EDT, Height, kg, 02/16/23 16:25:00 EDT, Dosing Weight Start Date: 03/13/23 Status: Ordered Start: 12-15-2022 take 1 capsule by mouth once daily hydrochlorothiazide-triamterene 25 mg-37 .5 mg oral capsule Dose = 1 cap(s), Oral, Daily, # 30 cap(s), 2 Refill(s), Pharmacy: [facility] ([facility] ), Dizziness Meniere disease, 151, cm, 12/15/22 14:06:00 EDT, Height Start Date: 12/15/22 Status: Ordered levoFLOXacin 500 mg oral tab let (1 source) Quinolone Antimicrobial Start: 08-15-2024 End: 09-02-2024 nitrofurantoin, macrocrystal s 100 mg oral capsule (1 source) Nitrofuran Antibacterial Start: 08-15-2024 End: 09-02-2024 oseltamivir 30 mg oral capsu le (1 source) Neuraminidase Inhibitor Start: 07-19-2024 End: 07-23-2024 predniSONE 10 mg oral tablet (2 sources) Start: 07-19-2024 End: 08-12-2024 Start: 01-17-2023 End: 01-24-2023 predniSONE 20 mg oral tablet Dose : 40 mg = 2 tab(s), Oral, qDayM, 2 tabs daily x 5 days, then 1 tab for 2 days. with food or milk, X 7 day(s), # 12 tab(s), 0 Refill(s), 01/24/23 15:22:00 EDT, Pharmacy: [facility] #[id number], Asthma exacerbation, 150, cm, 01/17/23 14:55:00 EDT, Height Start Date: 01/17/23 Stop Date: 01/24/23 Status: Ordered Problems Active Problems Problem Classification Problem Date Documented Date Episodic/Chronic Administrative/social admission (3 sources) Power of [employer] consultant in existence 05-06-2024 Episodic Asthma (20 sources) Asthma; Translations: [Severe persistent asthma] Onset: 07-21-2024 06-02-2019 Chronic Chronic kidney disease (1 source) Chronic kidney disease stage 3A ; Translations: [Chronic kidney disease, stage 3a] Chronic Chronic obstructive pulmonary disease and bronchiectasis (7 sources) Chronic obstructive lung disease; Translations: [Chronic obstructive pulmonary disease, unspecified] 06-02-2019 Chronic Conditions associated with dizziness or vertigo (20 sources) Dizziness; Translations: [Dizziness and giddiness] Onset: 02-14-2024 06-07-2020 Episodic Coronary atherosclerosis and other heart disease (20 sources) Coronary arteriosclerosis 12-01-2019 Chronic Delirium, dementia, and amnestic and other cognitive disorders (10 sources) Dementia; Translations: [Unspecified dementia without behavioral disturbance] Onset: 09-07-2024 04-09-2024 Chronic Disorders of lipid metabolism (20 sources) Mixed hyperlipidemia; Translations: [Pure hypercholesterolemia] Onset: 04-29-2024 12-11-2019 Chronic Esophageal disorders (20 sources) Gastroesophageal reflux disease 04-02-2019 Chronic Essential hypertension (20 sources) Essential hypertension; Translations: [Essential (primary) hypertension] Onset: 12-29-2024 12-11-2019 Chronic Fluid and electrolyte disorders (1 source) Hypokalemia; Translations: [Hypokalemia] Episodic Hypertension with complications and secondary hypertension (1 source) Chronic kidney disease due to hypertension; Translations: [Hypertensive chronic kidney disease with stage 1 through stage 4 chronic kidney disease, or unspecified chronic kidney disease] Chronic Neoplasms of unspecified nature or uncertain behavior (3 sources) Neoplasm of meninges 05-06-2024 Episodic Nonspecific chest pain (15 sources) Chest discomfort; Translations: [Chest pain] Onset: 11-19-2024 12-01-2019 Episodic Osteoarthritis (20 sources) Degenerative polyarthritis 06-02-2019 Chronic Other aftercare (1 source) Other exterminator (current) drug therapy; Translations: [Other senior living (current) drug therapy] Onset: 12-29-2024 Episodic Other circulatory disease (16 sources) History of transient ischemic attack; Translations: [Personal history of transient ischemic attack (TIA), and cerebral infarction without residual deficits] 06-09-2022 Episodic Other connective tissue disease (14 sources) 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-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 Episodic Other connective tissue disease (1 source) Musculoskeletal test abnormal; Translations: [Other symptoms and signs involving the musculoskeletal system] Episodic Other ear and sense organ disorders (15 sources) Does use hearing aid 06-09-2022 Episodic Other lower respiratory disease (1 source) H/O: asthma; Translations: [Personal history of other diseases of the respiratory system] 07-17-2024 Episodic Other lower respiratory disease (1 source) Dyspnea; Translations: [Dyspnea, unspecified] 07-31-2024 Episodic Other lower respiratory disease (3 sources) Hypoxia; Translations: [Hypoxemia] 08-12-2024 Episodic Other lower respiratory disease (1 source) Respiratory insufficiency; Translations: [Other abnormalities of breathing] 07-20-2024 Episodic Other nervous system disorders (1 source) Walking disability; Translations: [Difficulty in walking, not elsewhere classified] Chronic Other nervous system disorders (1 source) Other chronic pain; Translations: [Other chronic pain] Onset: 07-21-2024 Chronic Other non-traumatic joint disorders (15 sources) Arthritis of hand 06-09-2022 Chronic Other non-traumatic joint disorders (2 sources) Hip pain; Translations: [Pain in left hip] 07-28-2024 Episodic Other nutritional; endocrine; and metabolic disorders (2 sources) Obese class I; Translations: [Class 1 obesity] 07-28-2024 Chronic Other nutritional; endocrine; and metabolic disorders (1 source) Adult failure to thrive syndrome; Translations: [Adult failure to thrive] 11-10-2024 Episodic Other nutritional; endocrine; and metabolic disorders (2 sources) Adult failure to thrive; Translations: [Adult failure to thrive] Onset: 09-09-2024 Episodic Other screening for suspected conditions (not mental disorders or infectious disease) (11 sources) Osteoporosis risk assessment done; Translations: [Encounter for screening for osteoporosis] Onset: 11-12-2024 Episodic Other skin disorders (8 sources) Mass lesion of brain 02-12-2024 Episodic Pulmonary heart disease (20 sources) Pulmonary embolism; Translations: [H/O: pulmonary embolus] 04-02-2019 Episodic Residual codes; unclassified (20 sources) Obstructive sleep apnea syndrome; Translations: [Obstructive sleep apnea (adult) (pediatric)] 12-01-2019 Chronic Residual codes; unclassified (7 sources) Sleep apnea 04-09-2024 Chronic Residual codes; unclassified (1 source) Obstructive sleep apnea (adult) (pediatric); Translations: [Obstructive sleep apnea (adult) (pediatric)] Onset: 07-21-2024 Chronic Residual codes; unclassified (9 sources) Requires vaccination 04-15-2020 Episodic Residual codes; unclassified (14 sources) History of chest pain 02-16-2023 Episodic Residual codes; unclassified (1 source) Past history of procedure; Translations: [Other specified postprocedural states] Episodic Residual codes; unclassified (9 sources) Memory impairment 02-12-2024 Episodic Residual codes; unclassified (3 sources) Altered mental status 05-06-2024 Episodic Respiratory failure; insufficiency; arrest (adult) (18 sources) Dependence on nocturnal oxygen therapy 02-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 Chronic Respiratory failure; insufficiency; arrest (adult) (1 source) Acute respiratory failure; Translations: [Acute respiratory failure with hypoxia] 08-12-2024 Episodic Transient cerebral ischemia (9 sources) Transient cerebral ischemia 06-30-2019 Chronic Unclassified (1 source) Unknown / UNK(Unknown) Onset: 01-18-2017 Unclassified (9 sources) Osteopenia 04-02-2019 Unclassified (4 sources) Long-term current use of proton pump inhibitor therapy 03-01-2022 Unclassified (3 sources) Prescribed medication regimen behavior finding 02-20-2022 Unclassified (15 sources) History of cardiac catheterization 11-03-2022 Comment on above: LAD of 25 to 30%, ra mus 20 to 25%, left circumflex 25 to 30%, and RCA 25%. Unclassified (1 source) Dementia in other diseases classified elsewhere, severe, with agitation; Translations: [Dementia in other diseases classified elsewhere, severe, with agitation] Onset: 11-19-2024 Unclassified (1 source) Obesity, class 1; Translations: [Obesity, class 1] Onset: 11-19-2024 Past or Other Problems Problem Classification Problem Date Documented Date Episodic/Chronic Influenza (5 sources) Influenza due to Influenza A virus; Translations: [Influenza due to other identified influenza virus with other respiratory manifestations] Onset: 07-21-2024 08-12-2024 Episodic Malaise and fatigue (3 sources) Asthenia; Translations: [Weakness] Onset: 08-15-2024 08-23-2024 Episodic Other diseases of kidney and ureters (2 sources) Disorder of kidney and ureter, unspecified; Translations: [Disorder of kidney and ureter, unspecified] Onset: 05-06-2024 Episodic Other lower respiratory disease (1 source) Hypoxemia; Translations: [Hypoxemia] Onset: 08-15-2024 Episodic Other lower respiratory disease (1 source) Shortness of breath; Translations: [Shortness of breath] Onset: 08-17-2024 Episodic Other lower respiratory disease (1 source) Other abnormalities of breathing; Translations: [Other abnormalities of breathing] Onset: 07-21-2024 Episodic Other non-traumatic joint disorders (1 source) Pain in left hip; Translations: [Pain in left hip] Onset: 07-21-2024 Episodic Pneumonia (except that caused by tuberculosis or sexually transmitted disease) (4 sources) Pneumonia; Translations: [Pneumonia, unspecified organism] Onset: 08-15-2024 08-23-2024 Episodic Residual codes; unclassified (2 sources) Altered mental status, unspecified; Translations: [Altered mental status, unspecified] Onset: 05-06-2024 Episodic Syncope (2 sources) Near syncope; Translations: [Syncope and collapse] Onset: 07-21-2024 07-20-2024 Episodic Unclassified (1 source) J45.909 Onset: 01-18-2017 Results Test Name Value Interpretation Reference Range Facility Basic Metabolic Profile (BMP )on 12-29-2024 BUN/CRE 31.0 RATIO High 10-20 [facility] Comment on above: Performed By: #### L 100.0500, L500.4100, L500.2500 ####[facility] [address] [place], [address] Calcium [Mass/Vol] 9.6 mg/dL Normal 7.6-11.0 [facility] Comment on above: Performed By: #### L 100.0500, L500.4100, L500.2500 ####[facility] [address] [place], [address] Chloride [Moles/Vol] 106 mmol/L Normal 98-108 [facility] Comment on above: Performed By: #### L 100.0500, L500.4100, L500.2500 ####[facility] [address] [place], [address] CO2 [Moles/Vol] 22.9 mmol/L Normal 21.0-32.0 [facility] Comment on above: Performed By: #### L 100.0500, L500.4100, L500.2500 ####[facility] [address] [place], [address] Creatinine [Mass/Vol] 0.82 mg/dL Normal 0.70-1.20 [facility] Comment on above: Performed By: #### L 100.0500, L500.4100, L500.2500 ####[facility] [address] [place], [address] GAP 10 Normal 5-15 [facility] Comment on above: Performed By: #### L 100.0500, L500.4100, L500.2500 ####[facility] [address] [place], [address] GFR/1.73 sq M.predicted among non-blacks MDRD (S/P/Bld) [Vol rate/Area] 71 mL/min/{1.73_m2} Normal >60 [facility] Comment on above: Result Comment: mL/m in/1.73m2 CKD-EPI Creatinine Equation (2020) Performed By: #### L 100.0500, L500.4100, L500.2500 ####[facility] [address] [place], [address] Glucose [Mass/Vol] 109 mg/dL High 70-99 [facility] Comment on above: Performed By: #### L 100.0500, L500.4100, L500.2500 ####[facility] [address] [place], [address] Potassium [Moles/Vol] 3.1 mmol/L Low 3.3-5.1 [facility] Comment on above: Performed By: #### L 100.0500, L500.4100, L500.2500 ####[facility] [address] [place], [address] Sodium [Moles/Vol] 139 mmol/L Normal 133-145 [facility] Comment on above: Performed By: #### L 100.0500, L500.4100, L500.2500 ####[facility] [address] [place], [address] Urea nitrogen [Mass/Vol] 26 mg/dL High 4-19 [facility] Comment on above: Performed By: #### L 100.0500, L500.4100, L500.2500 ####[facility] [address] [place], [address] CBC-Complete Blood Cnt No Di ffon 12-29-2024 Erythrocyte distribution width (RBC) [Ratio] 13.4 % Normal 11.6-14.6 [facility] Comment on above: Performed By: #### L 100.0500, L500.4100, L500.2500 ####[facility] [address] [place], [address] Hematocrit (Bld) [Volume fraction] 37.5 % Normal 37-47 [facility] Comment on above: Performed By: #### L 100.0500, L500.4100, L500.2500 ####[facility] [address] [place], [address] Hemoglobin (Bld) [Mass/Vol] 12.2 g/dL Normal 12.0-15.0 [facility] Comment on above: Performed By: #### L 100.0500, L500.4100, L500.2500 ####[facility] [address] [place], [address] MCH (RBC) [Entitic mass] 27.2 pg Normal 27.0-32.0 [facility] Comment on above: Performed By: #### L 100.0500, L500.4100, L500.2500 ####[facility] [address] [place], [address] MCHC (RBC) [Mass/Vol] 32.5 g/dL Normal 32-36 [facility] Comment on above: Performed By: #### L 100.0500, L500.4100, L500.2500 ####[facility] [address] [place], [address] MCV (RBC) [Entitic vol] 83.7 fL Normal 81-99 [facility] Comment on above: Performed By: #### L 100.0500, L500.4100, L500.2500 ####[facility] [address] [place], [address] Platelet mean volume (Bld) [Entitic vol] 10.1 fL Normal 6.2-12.0 [facility] Comment on above: Performed By: #### L 100.0500, L500.4100, L500.2500 ####[facility] [address] [place], [address] Platelets (Bld) [#/Vol] 247 10*3/uL Normal 150-450 [facility] Comment on above: Performed By: #### L 100.0500, L500.4100, L500.2500 ####[facility] [address] [place], [address] RBC (Bld) [#/Vol] 4.48 10*6/uL Normal 4.2-5.4 [facility] Comment on above: Performed By: #### L 100.0500, L500.4100, L500.2500 ####[facility] [address] [place], [address] RDW SD 41.0 fl Normal 35.1-43.9 [facility] Comment on above: Performed By: #### L 100.0500, L500.4100, L500.2500 ####[facility] [address] [place], [address] WBC (Bld) [#/Vol] 17.7 10*3/uL High 4.4-11.0 [facility] Comment on above: Performed By: #### L 100.0500, L500.4100, L500.2500 ####[facility] [address] [place], [address] Lipid Profileon 12-29-2024 CHOL:HDL 3.35 Normal [facility] Comment on above: Performed By: #### L 100.0500, L500.4100, L500.2500 ####[facility] [address] [place], [address] Cholesterol [Mass/Vol] 84 mg/dL Normal <=[address] [facility] Comment on above: Result Comment: Chol esterol level, Desirable <200 mg/dLBorderline high cholesterol 200-239 mg/dLHigh cholesterol >=240 mg/dLRecommendations of the NCEP Adult Treatment Panel for thefollowing risk-cutoff thresholds for the [place] Americanpulation. Performed By: #### L 100.0500, L500.4100, L500.2500 ####[facility] [address] [place], [address] Cholesterol in HDL [Mass/Vol] 25 mg/dL Low [facility] Comment on above: Result Comment: Robina onal Cholesterol Education Program (NCEP) guidelines:<40 mg/dL: Low HDL-cholesterol (major risk factor for CHD)>= 60 mg/dL: High HDL-cholesterol (negative risk factor forCHD)HDL-cholesterol is affected by a number of factors, e.g.smoking, exercise, hormones, sex and age. Performed By: #### L 100.0500, L500.4100, L500.2500 ####[facility] [address] [place], [address] Cholesterol in LDL [Mass/Vol] 42 mg/dL Normal [facility] Comment on above: Result Comment: Bord lypvgy=300-251 mg/dL Higher Pxgu=125 mg/dL or greater Performed By: #### L 100.0500, L500.4100, L500.2500 ####[facility] [address] [place], [address] Cholesterol in VLDL [Mass/Vol] 17 mg/dL Normal 5-40 [facility] Comment on above: Performed By: #### L 100.0500, L500.4100, L500.2500 ####[facility] [address] [place], [address] Triglyceride [Mass/Vol] 85 mg/dL Normal [facility] Comment on above: Result Comment: The drugs N-Acetylcysteine and Metamizole may falselydepress this assay.Normal range: <150 mg/dLBorderline High: 150-199 mg/dLHigh: 200-499 mg/dLVery High: >500 mg/dL Performed By: #### L 100.0500, L500.4100, L500.2500 ####[facility] [address] [place], [address] 12 Lead EKGon 11-11-2024 12 Lead EKG Normal [facility] CBC W/Diff, Automatedon - Absolute Lymph 2.00 X10 3/uL Normal 0.83-4.51 [facility] Comment on above: Performed By: #### L 500.4050, L100.0100 ####[facility] [address] [place], [address] Absolute Neut 4.6 X10 3/uL Normal 2.0-7.7 [facility] Comment on above: Performed By: #### L 500.4050, L100.0100 ####[facility] [address] [place], [address] Basophils/100 WBC (Bld) 0.8 % Normal 0-1 [facility] Comment on above: Performed By: #### L 500.4050, L100.0100 ####[facility] [address] [place], [address] Eosinophils/100 WBC (Bld) 3.7 % Normal 0-5 [facility] Comment on above: Performed By: #### L 500.4050, L100.0100 ####[facility] [address] [place], [address] Erythrocyte distribution width (RBC) [Ratio] 13.0 % Normal 11.6-14.6 [facility] Comment on above: Performed By: #### L 500.4050, L100.0100 ####[facility] [address] [place], [address] Hematocrit (Bld) [Volume fraction] 39.4 % Normal 37-47 [facility] Comment on above: Performed By: #### L 500.4050, L100.0100 ####[facility] [address] [place], [address] Hemoglobin (Bld) [Mass/Vol] 12.4 g/dL Normal 12.0-15.0 [facility] Comment on above: Performed By: #### L 500.4050, L100.0100 ####[facility] [address] [place], [address] IG% 0.100 Normal 0.0-0.9 [facility] Comment on above: Result Comment: IG% - Immature Granulocytes (promyelocytes, myelocytes andmetamyelocytes) > 1% indicates that a LEFT SHIFT is Present. Performed By: #### L 500.4050, L100.0100 ####[facility] [address] [place], [address] Lymphocytes/100 WBC (Bld) 25.8 % Normal 19-41 [facility] Comment on above: Performed By: #### L 500.4050, L100.0100 ####[facility] [address] [place], [address] MCH (RBC) [Entitic mass] 28.0 pg Normal 27.0-32.0 [facility] Comment on above: Performed By: #### L 500.4050, L100.0100 ####[facility] [address] [place], [address] MCHC (RBC) [Mass/Vol] 31.5 g/dL Low 32-36 [facility] Comment on above: Performed By: #### L 500.4050, L100.0100 ####[facility] [address] [place], [address] MCV (RBC) [Entitic vol] 88.9 fL Normal 81-99 [facility] Comment on above: Performed By: #### L 500.4050, L100.0100 ####[facility] [address] [place], [address] Monocytes/100 WBC (Bld) 10.2 % High 0-10 [facility] Comment on above: Performed By: #### L 500.4050, L100.0100 ####[facility] [address] [place], [address] Neutrophils/100 WBC (Bld) 59.4 % Normal 47-70 [facility] Comment on above: Performed By: #### L 500.4050, L100.0100 ####[facility] [address] [place], [address] Nucleated RBC (Bld) [#/Vol] 0 10*3/uL Normal 0-5 [facility] Comment on above: Performed By: #### L 500.4050, L100.0100 ####[facility] [address] [place], [address] Platelet mean volume (Bld) [Entitic vol] 10.5 fL Normal 6.2-12.0 [facility] Comment on above: Performed By: #### L 500.4050, L100.0100 ####[facility] [address] [place], [address] Platelets (Bld) [#/Vol] 257 10*3/uL Normal 150-450 [facility] Comment on above: Performed By: #### L 500.4050, L100.0100 ####[facility] [address] [place], [address] RBC (Bld) [#/Vol] 4.43 10*6/uL Normal 4.2-5.4 [facility] Comment on above: Performed By: #### L 500.4050, L100.0100 ####[facility] [address] [place], [address] RDW SD 42.5 fl Normal 35.1-43.9 [facility] Comment on above: Performed By: #### L 500.4050, L100.0100 ####[facility] [address] [place], [address] WBC (Bld) [#/Vol] 7.8 10*3/uL Normal 4.4-11.0 [facility] Comment on above: Performed By: #### L 500.4050, L100.0100 ####[facility] [address] [place], [address] Comprehensive Metabolic Prof ilon 11-11-2024 Albumin [Mass/Vol] 3.4 g/dL Normal 3.4-4.8 [facility] Comment on above: Performed By: #### L 500.4050, L100.0100 ####[facility] [address] [place], [address] Albumin/Globulin [Mass ratio] 1.5 {ratio} Normal 0.9-2.4 [facility] Comment on above: Performed By: #### L 500.4050, L100.0100 ####[facility] [address] [place], [address] ALK PHOS 115 U/L High 35-104 [facility] Comment on above: Performed By: #### L 500.4050, L100.0100 ####[facility] [address] [place], [address] ALT [Catalytic activity/Vol] 8 U/L Normal <=34 [facility] Comment on above: Performed By: #### L 500.4050, L100.0100 ####[facility] [address] [place], [address] AST [Catalytic activity/Vol] 17 U/L Normal <=31 [facility] Comment on above: Performed By: #### L 500.4050, L100.0100 ####[facility] [address] [place], [address] Bilirubin [Mass/Vol] 0.21 mg/dL Normal 0.00-1.30 [facility] Comment on above: Performed By: #### L 500.4050, L100.0100 ####[facility] [address] [place], [address] BUN/CRE 28.6 RATIO High 10-20 [facility] Comment on above: Performed By: #### L 500.4050, L100.0100 ####[facility] [address] [place], [address] Calcium [Mass/Vol] 10.1 mg/dL Normal 7.6-11.0 [facility] Comment on above: Performed By: #### L 500.4050, L100.0100 ####[facility] [address] [place], [address] Chloride [Moles/Vol] 107 mmol/L Normal 98-108 [facility] Comment on above: Performed By: #### L 500.4050, L100.0100 ####[facility] [address] [place], [address] CO2 [Moles/Vol] 23.7 mmol/L Normal 21.0-32.0 [facility] Comment on above: Performed By: #### L 500.4050, L100.0100 ####[facility] [address] [place], [address] Creatinine [Mass/Vol] 0.58 mg/dL Low 0.70-1.20 [facility] Comment on above: Performed By: #### L 500.4050, L100.0100 ####[facility] [address] [place], [address] ECRCL 47.36 ml/min Low 50-250 [facility] Comment on above: Performed By: #### L 500.4050, L100.0100 ####[facility] [address] [place], [address] GAP 10 Normal 5-15 [facility] Comment on above: Performed By: #### L 500.4050, L100.0100 ####[facility] [address] [place], [address] GFR/1.73 sq M.predicted among non-blacks MDRD (S/P/Bld) [Vol rate/Area] 90 mL/min/{1.73_m2} Normal >60 [facility] Comment on above: Result Comment: mL/m in/1.73m2 CKD-EPI Creatinine Equation (2020) Performed By: #### L 500.4050, L100.0100 ####[facility] [address] [place], [address] Globulin (S) [Mass/Vol] 2.3 g/dL Normal 2.2-4.2 [facility] Comment on above: Performed By: #### L 500.4050, L100.0100 ####[facility] [address] [place], [address] Glucose [Mass/Vol] 99 mg/dL Normal 70-99 [facility] Comment on above: Performed By: #### L 500.4050, L100.0100 ####[facility] [address] [place], [address] Potassium [Moles/Vol] 3.7 mmol/L Normal 3.3-5.1 [facility] Comment on above: Performed By: #### L 500.4050, L100.0100 ####[facility] [address] [place], [address] Sodium [Moles/Vol] 140 mmol/L Normal 133-145 [facility] Comment on above: Performed By: #### L 500.4050, L100.0100 ####[facility] [address] [place], [address] T PROT 5.7 g/dL Low 5.9-8.4 [facility] Comment on above: Performed By: #### L 500.4050, L100.0100 ####[facility] [address] [place], [address] Urea nitrogen [Mass/Vol] 17 mg/dL Normal 4-19 [facility] Comment on above: Performed By: #### L 500.4050, L100.0100 ####[facility] [address] [place], [address] Folates,Serum (Folic Acid)on 11-11-2024 FOLATES,SERUM 9.94 ng/mL Normal 4.60-34.80 [facility] Comment on above: Order Comment: N Result Comment: Hemo lysis, Results will be affected, Requires Recollection. Performed By: #### L 505.5000, L506.0200, L501.9520 ####[facility] [address] [place], [address] L501.4021on 11-11-2024 Trop T High Sen 15 ng/L High <=14 [facility] Comment on above: Order Comment: *ADD ON PER DR.D SEGURA,RN* Performed By: #### L 501.4021 ####[facility] [address] [place], [address] Lipid Profileon 11-11-2024 CHOL:HDL 3.11 Normal [facility] Comment on above: Performed By: #### L 500.4100 ####[facility] [address] [place], [address] Cholesterol [Mass/Vol] 122 mg/dL Normal <=[address] [facility] Comment on above: Result Comment: Chol esterol level, Desirable <200 mg/dLBorderline high cholesterol 200-239 mg/dLHigh cholesterol >=240 mg/dLRecommendations of the NCEP Adult Treatment Panel for thefollowing risk-cutoff thresholds for the [place] Americanpulation. Performed By: #### L 500.4100 ####[facility] [address] [place], [address] Cholesterol in HDL [Mass/Vol] 39 mg/dL Low [facility] Comment on above: Result Comment: Robina onal Cholesterol Education Program (NCEP) guidelines:<40 mg/dL: Low HDL-cholesterol (major risk factor for CHD)>= 60 mg/dL: High HDL-cholesterol (negative risk factor forCHD)HDL-cholesterol is affected by a number of factors, e.g.smoking, exercise, hormones, sex and age. Performed By: #### L 500.4100 ####[facility] [address] [place], [place], [id number] Cholesterol in LDL [Mass/Vol] 56 mg/dL Normal [facility] Comment on above: Result Comment: Bord ndhruc=288-684 mg/dL Higher Hbty=249 mg/dL or greater Performed By: #### L 500.4100 ####[facility] [address] [place], [address] Cholesterol in VLDL [Mass/Vol] 26 mg/dL Normal 5-40 [facility] Comment on above: Performed By: #### L 500.4100 ####[facility] [address] [place], [address] Triglyceride [Mass/Vol] 132 mg/dL Normal [facility] Comment on above: Result Comment: The drugs N-Acetylcysteine and Metamizole may falselydepress this assay.Normal range: <150 mg/dLBorderline High: 150-199 mg/dLHigh: 200-499 mg/dLVery High: >500 mg/dL Performed By: #### L 500.4100 ####[facility] [address] [place], [place], [id number] Stress Reporton 11-11-2024 Stress Report Normal [facility] Urine Drug Screen (VISTA)on 11-11-2024 AMPHETAMINES Negative Normal <1000 ng/mL [facility] Comment on above: Order Comment: UNK Performed By: #### L 505.5000, L506.0200, L501.9520 ####[facility] [address] [place], [address] BARBITIURATES Negative Normal < 200 ng/mL [facility] Comment on above: Order Comment: UNK Performed By: #### L 505.5000, L506.0200, L501.9520 ####[facility] [address] [place], [address] BENZODIAZIPINE Negative Normal < 200 ng/mL [facility] Comment on above: Order Comment: UNK Performed By: #### L 505.5000, L506.0200, L501.9520 ####[facility] [address] [place], [address] BUP Ur Drug Scr Negative Normal < 200 ng/mL [facility] Comment on above: Order Comment: UNK Performed By: #### L 505.5000, L506.0200, L501.9520 ####[facility] [address] [place], [address] COCAINE Negative Normal < 300 ng/mL [facility] Comment on above: Order Comment: UNK Performed By: #### L 505.5000, L506.0200, L501.9520 ####[facility] [address] [place], [address] Fentanyl Negative Normal [facility] Comment on above: Order Comment: UNK Performed By: #### L 505.5000, L506.0200, L501.9520 ####[facility] [address] [place], [address] METHADONE Negative Normal < 300 ng/mL [facility] Comment on above: Order Comment: UNK Performed By: #### L 505.5000, L506.0200, L501.9520 ####[facility] [address] [place], [address] OPIATES Negative Normal < 300 ng/mL [facility] Comment on above: Order Comment: UNK Performed By: #### L 505.5000, L506.0200, L501.9520 ####[facility] [address] [place], [address] OXYCODONE Negative Normal < 100 ng/mL [facility] Comment on above: Order Comment: UNK Performed By: #### L 505.5000, L506.0200, L501.9520 ####[facility] [address] [place], [address] PCP Negative Normal < 25 ng/mL [facility] Comment on above: Order Comment: UNK Performed By: #### L 505.5000, L506.0200, L501.9520 ####[facility] [address] [place], [address] THC Negative Normal < 50 ng/mL [facility] Comment on above: Order Comment: UNK Performed By: #### L 505.5000, L506.0200, L501.9520 ####[facility] [address] [place], [address] 12 Lead EKGon 11-10-2024 12 Lead EKG Normal [facility] 12 Lead EKG Normal [facility] Absolute neutrophil countOrd ered By: Apple Lee on 11-10-2024 Absolute neutrophil count 5.4 X10^3/uL 2.0-7.7 [facility] Alcohol, Blood (Medical)-Ser umon 11-10-2024 SERUM ETOH < 10.1 Normal <=10.0 [facility] Comment on above: Order Comment: *ADD ON TO 2 HOUR TROP* Result Comment: This test is for medical purposes only. The legaldefinition of intoxication varies according to local law. Performed By: #### L 501.9100 ####[facility] [address] [place], [address] Anion gap [Moles/Vol]Ordered By: Apple Lee on 11-10-2024 Anion gap in Serum or Plasma 13 5-15 [facility] BUN/creatinine ratioOrdered By: Apple Lee on 11-10-2024 BUN/creatinine ratio 18.4 RATIO 10- [facility] Basic Metabolic Profile (BMP )on 11-10-2024 BUN/CRE 18.4 RATIO Normal - [facility] Comment on above: Performed By: #### L 501.4021, L500.2500, L100.0100 ####[facility] [address] [place], [address] Calcium [Mass/Vol] 10.1 mg/dL Normal 7.6-11.0 [facility] Comment on above: Performed By: #### L 501.4021, L500.2500, L100.0100 ####[facility] [address] [place], [address] Chloride [Moles/Vol] 104 mmol/L Normal 98-108 [facility] Comment on above: Performed By: #### L 501.4021, L500.2500, L100.0100 ####[facility] [address] [place], [address] CO2 [Moles/Vol] 24.8 mmol/L Normal 21.0-32.0 [facility] Comment on above: Performed By: #### L 501.4021, L500.2500, L100.0100 ####[facility] [address] [place], [address] Creatinine [Mass/Vol] 0.72 mg/dL Normal 0.70-1.20 [facility] Comment on above: Performed By: #### L 501.4021, L500.2500, L100.0100 ####[facility] [address] [place], [address] ECRCL 48.67 ml/min Low 50-250 [facility] Comment on above: Performed By: #### L 501.4021, L500.2500, L100.0100 ####[facility] [address] [place], [address] GAP 13 Normal 5-15 [facility] Comment on above: Performed By: #### L 501.4021, L500.2500, L100.0100 ####[facility] [address] [place], [address] GFR/1.73 sq M.predicted among non-blacks MDRD (S/P/Bld) [Vol rate/Area] 82 mL/min/{1.73_m2} Normal >60 [facility] Comment on above: Result Comment: mL/m in/1.73m2 CKD-EPI Creatinine Equation (2020) Performed By: #### L 501.4021, L500.2500, L100.0100 ####[facility] [address] [place], [address] Glucose [Mass/Vol] 92 mg/dL Normal 70-99 [facility] Comment on above: Performed By: #### L 501.4021, L500.2500, L100.0100 ####[facility] [address] [place], [address] Potassium [Moles/Vol] 3.8 mmol/L Normal 3.3-5.1 [facility] Comment on above: Performed By: #### L 501.4021, L500.2500, L100.0100 ####[facility] [address] [place], [address] Sodium [Moles/Vol] 141 mmol/L Normal 133-145 [facility] Comment on above: Performed By: #### L 501.4021, L500.2500, L100.0100 ####[facility] [address] [place], [address] Urea nitrogen [Mass/Vol] 13 mg/dL Normal 4-19 [facility] Comment on above: Performed By: #### L 501.4021, L500.2500, L100.0100 ####[facility] [address] [place], [address] Basophil percentageOrdered B y: Apple Lee on 11-10-2024 Basophil percentage 0.9 % 0-1 [facility] CBC W/Diff, Automatedon 10-22 Absolute Lymph 2.40 X10 3/uL Normal 0.83-4.51 [facility] Comment on above: Performed By: #### L 501.4021, L500.2500, L100.0100 ####[facility] [address] [place], [address] Absolute Neut 5.4 X10 3/uL Normal 2.0-7.7 [facility] Comment on above: Performed By: #### L 501.4021, L500.2500, L100.0100 ####[facility] [address] [place], [address] Basophils/100 WBC (Bld) 0.9 % Normal 0-1 [facility] Comment on above: Performed By: #### L 501.4021, L500.2500, L100.0100 ####[facility] [address] [place], [address] Eosinophils/100 WBC (Bld) 2.4 % Normal 0-5 [facility] Comment on above: Performed By: #### L 501.4021, L500.2500, L100.0100 ####[facility] [address] [place], [address] Erythrocyte distribution width (RBC) [Ratio] 12.8 % Normal 11.6-14.6 [facility] Comment on above: Performed By: #### L 501.4021, L500.2500, L100.0100 ####[facility] [address] [place], [address] Hematocrit (Bld) [Volume fraction] 43.0 % Normal 37-47 [facility] Comment on above: Performed By: #### L 501.4021, L500.2500, L100.0100 ####[facility] [address] [place], [address] Hemoglobin (Bld) [Mass/Vol] 13.9 g/dL Normal 12.0-15.0 [facility] Comment on above: Performed By: #### L 501.4021, L500.2500, L100.0100 ####[facility] [address] [place], [address] IG% 0.200 Normal 0.0-0.9 [facility] Comment on above: Result Comment: IG% - Immature Granulocytes (promyelocytes, myelocytes andmetamyelocytes) > 1% indicates that a LEFT SHIFT is Present. Performed By: #### L 501.4021, L500.2500, L100.0100 ####[facility] [address] [place], [address] Lymphocytes/100 WBC (Bld) 26.7 % Normal 19-41 [facility] Comment on above: Performed By: #### L 501.4021, L500.2500, L100.0100 ####[facility] [address] [place], [address] MCH (RBC) [Entitic mass] 28.1 pg Normal 27.0-32.0 [facility] Comment on above: Performed By: #### L 501.4021, L500.2500, L100.0100 ####[facility] [address] [place], [address] MCHC (RBC) [Mass/Vol] 32.3 g/dL Normal 32-36 [facility] Comment on above: Performed By: #### L 501.4021, L500.2500, L100.0100 ####[facility] [address] [place], [address] MCV (RBC) [Entitic vol] 86.9 fL Normal 81-99 [facility] Comment on above: Performed By: #### L 501.4021, L500.2500, L100.0100 ####[facility] [address] [place], [address] Monocytes/100 WBC (Bld) 10.0 % Normal 0-10 [facility] Comment on above: Performed By: #### L 501.4021, L500.2500, L100.0100 ####[facility] [address] [place], [address] Neutrophils/100 WBC (Bld) 59.8 % Normal 47-70 [facility] Comment on above: Performed By: #### L 501.4021, L500.2500, L100.0100 ####[facility] [address] [place], [address] Nucleated RBC (Bld) [#/Vol] 0 10*3/uL Normal 0-5 [facility] Comment on above: Performed By: #### L 501.4021, L500.2500, L100.0100 ####[facility] [address] [place], [address] Platelet mean volume (Bld) [Entitic vol] 10.4 fL Normal 6.2-12.0 [facility] Comment on above: Performed By: #### L 501.4021, L500.2500, L100.0100 ####[facility] [address] [place], [address] Platelets (Bld) [#/Vol] 297 10*3/uL Normal 150-450 [facility] Comment on above: Performed By: #### L 501.4021, L500.2500, L100.0100 ####[facility] [address] [place], [address] RBC (Bld) [#/Vol] 4.95 10*6/uL Normal 4.2-5.4 [facility] Comment on above: Performed By: #### L 501.4021, L500.2500, L100.0100 ####[facility] [address] [place], [address] RDW SD 40.1 fl Normal 35.1-43.9 [facility] Comment on above: Performed By: #### L 501.4021, L500.2500, L100.0100 ####[facility] [address] [place], [address] WBC (Bld) [#/Vol] 9.0 10*3/uL Normal 4.4-11.0 [facility] Comment on above: Performed By: #### L 501.4021, L500.2500, L100.0100 ####[facility] [address] [place], [address] Calcium [Mass/Vol]Ordered By : Apple Lee on 11-10-2024 Serum or plasma calcium measurement (mass/volume) 10.1 mg/dL 7.6-11.0 [facility] Carbon dioxide, total [Moles /volume] in Central venous bloodOrdered By: Apple Lee on 11-10-2024 Carbon dioxide, total [Moles/volume] in Central venous blood 24.8 mmol/L 21.0-32.0 [facility] Chest PA and Lateralon 11-10 Chest PA and Lateral Normal [facility] Chloride assayOrdered By: Ching Lee on 11-10-2024 Chloride assay 104 mmol/L 98-108 [facility] Creatinine [Mass/Vol]Ordered By: Apple Lee on 11-10-2024 Serum creatinine measurement (mass/volume) 0.72 mg/dL 0.70-1.20 [facility] Emergency Department Summary on 11-10-2024 Emergency Department Summary Normal [facility] Eosinophil percentageOrdered By: Apple Lee on 11-10-2024 Eosinophil percentage 2.4 % 0-5 [facility] Erythrocyte distribution wid th (RBC) [Ratio]Ordered By: Apple Lee on 11-10-2024 Erythrocyte distribution width ratio 12.8 % 11.6-14.6 [facility] Erythrocyte distribution width standard deviation 40.1 fl 35.1-43.9 [facility] Estimation of creatinine hernando aranceOrdered By: Apple Lee on 11-10-2024 Estimation of creatinine clearance 48.67 ml/min Low 50-250 [facility] GFR/1.73 sq M.predicted isela g non-blacks MDRD (S/P/Bld) [Vol rate/Area]Ordered By: Apple Lee on 11-10-2024 Glomerular filtration rate (GFR) estimation/1.73 sq m using serum, plasma, or whole b 82 >60 [facility] Glucose [Mass/Vol]Ordered By : Apple Lee on 11-10-2024 Serum glucose measurement (mass/volume) 92 mg/dL 70-99 [facility] H AND P Exam - Hospitaliston 11-10-2024 H&P Exam - Hospitalist Normal [facility] Hematocrit Auto (Bld) [Volum e fraction]Ordered By: Apple Lee on 11-10-2024 Automated blood hematocrit (percentage) 43.0 % 37-47 [facility] Hemoglobin measurementOrdere d By: Apple Lee on 11-10-2024 Hemoglobin measurement 13.9 g/dL 12.0-15.[address] [facility] Immature granulocytes/100 WB C Auto (Bld)Ordered By: Apple Lee on 11-10-2024 Automated immature granulocyte percentage 0.200 % 0.0-0.9 [facility] L499.0042on 11-10-2024 Trop T High Sen 13 ng/L Normal <=14 [facility] Comment on above: Performed By: #### L 499.0042 ####[facility] [address] [place], [address] L501.4021on 11-10-2024 Trop T High Sen 16 ng/L High <=14 [facility] Comment on above: Performed By: #### L 501.4021, L500.2500, L100.0100 ####[facility] [address] [place], [address] Lymphocytes Auto (Unsp spec) [#/Vol]Ordered By: Apple Lee on 11-10-2024 Absolute lymphocyte count 2.40 X10^3/uL 0.83-4.51 [facility] Lymphocytes/100 WBC Auto (Un sp spec)Ordered By: Apple Lee on 11-10-2024 Automated lymphocyte count as percentage of total leukocytes 26.7 % 19-41 [facility] MCV (RBC) [Entitic vol]Order ed By: Apple Lee on 11-10-2024 MCV (mean corpuscular volume) determination 86.9 fL 81-99 [facility] Mean corpuscular hemoglobin (MCH) determinationOrdered By: Apple Lee on 11-10-2024 Mean corpuscular hemoglobin (MCH) determination 28.1 pg 27.0-32.0 [facility] Mean corpuscular hemoglobin concentration (MCHC) determinationOrdered By: Apple Lee on 11-10-2024 Mean corpuscular hemoglobin concentration (MCHC) determination 32.3 g/dL 32-36 [facility] Mean platelet volume determi nationOrdered By: Apple Lee on 11-10-2024 Mean platelet volume determination 10.4 fl 6.2-12.0 [facility] Monocyte percentageOrdered B y: Apple Lee on 11-10-2024 Monocyte percentage 10.0 % 0-10 [facility] Neutrophil percentageOrdered By: Apple Lee on 11-10-2024 Neutrophil percentage 59.8 % 47-70 [facility] Nucleated red blood cell per centageOrdered By: Apple Lee on 11-10-2024 Nucleated red blood cell percentage 0 % 0-5 [facility] Platelet countOrdered By: Ching sanchezttlis Lee on 11-10-2024 Platelet count 297 K/mm3 150-450 [facility] Potassium (Unsp spec) [Mass/ Vol]Ordered By: Apple Lee on 11-10-2024 Potassium measurement (mass/volume) 3.8 mmol/L 3.3-5.1 [facility] RBC Auto (Bld) [#/Vol]Ordere d By: Apple Lee on 11-10-2024 Automated blood erythrocyte count 4.95 M/mm3 4.2-5.4 [facility] Sodium levelOrdered By: Cb Lee on 11-10-2024 Sodium level 141 mmol/L 133-145 [facility] Thyroid Stim Hormone (TSH)on 11-10-2024 TSH 3.070 uIU/mL Normal 0.300-4.200 [facility] Comment on above: Performed By: #### L 505.5000, L506.0200, L501.9520 ####[facility] [address] [place], [place], [address] Troponin T.cardiac High sens itivity method [Mass/Vol]Ordered By: Apple Lee on 11-10-2024 Troponin T.cardiac [Mass/volume] in Serum or Plasma by High sensitivity method 13 ng/L <14 [facility] Troponin T.cardiac [Mass/volume] in Serum or Plasma by High sensitivity method 16 ng/L High <14 [facility] Urea nitrogen [Mass/Vol]Orde red By: Apple Lee on 11-10-2024 Serum or plasma urea nitrogen measurement (mass/volume) 13 mg/dL 4-19 [facility] Vitamin B12on 11-10-2024 Cobalamin (Vitamin B12) [Mass/Vol] 322 pg/mL Normal 180-914 [facility] Comment on above: Performed By: #### L 503.0106 ####[facility] [address] [place], [place], [address] White blood cell (WBC) count Ordered By: Apple Lee on 11-10-2024 White blood cell (WBC) count 9.0 K/mm3 4.4-11.0 [facility] 12 Lead EKGon 09-18-2024 12 Lead EKG Normal [facility] ALP [Catalytic activity/Vol] Ordered By: Abundio Tyson on 09-18-2024 Serum or plasma alkaline phosphatase measurement 112 U/L High 35-104 [facility] ALT [Catalytic activity/Vol] Ordered By: Abundio Tyson on 09-18-2024 Serum or plasma alanine aminotransferase (ALT) measurement 11 U/L <35 [facility] Absolute neutrophil countOrd ered By: Abundio Tyson on 09-18-2024 Absolute neutrophil count 6.5 X10^3/uL 2.0-7.7 [facility] Albumin [Mass/Vol]Ordered By : Abundio Tyson on 09-18-2024 Serum or plasma albumin measurement (mass/volume) 3.7 g/dL 3.4-4.8 [facility] Albumin/Globulin [Mass ratio ]Ordered By: Abundio Tyson on 09-18-2024 Serum or plasma albumin/globulin mass ratio 1.4 RATIO 0.9-2.4 [facility] Anion gap [Moles/Vol]Ordered By: Abundio Tyson on 09-18-2024 Serum or plasma anion gap determination (moles/volume) 10 5-15 [facility] BUN/creatinine ratioOrdered By: Abundio Tyson on 09-18-2024 BUN/creatinine ratio 21.8 RATIO High 10-20 [facility] Basophil percentageOrdered B y: Abundio Tyson on 09-18-2024 Basophil percentage 0.8 % 0-1 [facility] Bilirubin, totalOrdered By: Abundio Tyson on 09-18-2024 Bilirubin, total 0.40 mg/dL 0.00-1.30 [facility] CBC W/Diff, Automatedon 08-24 Absolute Lymph 1.75 X10 3/uL Normal 0.83-4.51 [facility] Comment on above: Performed By: #### L 500.4050, L100.0100 ####[facility] [address] [place], [place], [address] Absolute Neut 6.5 X10 3/uL Normal 2.0-7.7 [facility] Comment on above: Performed By: #### L 500.4050, L100.0100 ####[facility] [address] [place], [address] Basophils/100 WBC (Bld) 0.8 % Normal 0-1 [facility] Comment on above: Performed By: #### L 500.4050, L100.0100 ####[facility] [address] [place], [address] Eosinophils/100 WBC (Bld) 3.9 % Normal 0-5 [facility] Comment on above: Performed By: #### L 500.4050, L100.0100 ####[facility] [address] [place], [address] Erythrocyte distribution width (RBC) [Ratio] 14.0 % Normal 11.6-14.6 [facility] Comment on above: Performed By: #### L 500.4050, L100.0100 ####[facility] [address] [place], [address] Hematocrit (Bld) [Volume fraction] 41.5 % Normal 37-47 [facility] Comment on above: Performed By: #### L 500.4050, L100.0100 ####[facility] [address] [place], [address] Hemoglobin (Bld) [Mass/Vol] 13.5 g/dL Normal 12.0-15.0 [facility] Comment on above: Performed By: #### L 500.4050, L100.0100 ####[facility] [address] [place], [address] IG% 0.500 Normal 0.0-0.9 [facility] Comment on above: Result Comment: IG% - Immature Granulocytes (promyelocytes, myelocytes andmetamyelocytes) > 1% indicates that a LEFT SHIFT is Present. Performed By: #### L 500.4050, L100.0100 ####[facility] [address] [place], [address] Lymphocytes/100 WBC (Bld) 18.0 % Low 19-41 [facility] Comment on above: Performed By: #### L 500.4050, L100.0100 ####[facility] [address] [place], [address] MCH (RBC) [Entitic mass] 28.5 pg Normal 27.0-32.0 [facility] Comment on above: Performed By: #### L 500.4050, L100.0100 ####[facility] [address] [place], [address] MCHC (RBC) [Mass/Vol] 32.5 g/dL Normal 32-36 [facility] Comment on above: Performed By: #### L 500.4050, L100.0100 ####[facility] [address] [place], [address] MCV (RBC) [Entitic vol] 87.6 fL Normal 81-99 [facility] Comment on above: Performed By: #### L 500.4050, L100.0100 ####[facility] [address] [place], [address] Monocytes/100 WBC (Bld) 9.5 % Normal 0-10 [facility] Comment on above: Performed By: #### L 500.4050, L100.0100 ####[facility] [address] [place], [address] Neutrophils/100 WBC (Bld) 67.3 % Normal 47-70 [facility] Comment on above: Performed By: #### L 500.4050, L100.0100 ####[facility] [address] [place], [address] Nucleated RBC (Bld) [#/Vol] 0 10*3/uL Normal 0-5 [facility] Comment on above: Performed By: #### L 500.4050, L100.0100 ####[facility] [address] [place], [address] Platelet mean volume (Bld) [Entitic vol] 10.2 fL Normal 6.2-12.0 [facility] Comment on above: Performed By: #### L 500.4050, L100.0100 ####[facility] [address] [place], [address] Platelets (Bld) [#/Vol] 290 10*3/uL Normal 150-450 [facility] Comment on above: Performed By: #### L 500.4050, L100.0100 ####[facility] [address] [place], [address] RBC (Bld) [#/Vol] 4.74 10*6/uL Normal 4.2-5.4 [facility] Comment on above: Performed By: #### L 500.4050, L100.0100 ####[facility] [address] [place], [address] RDW SD 45.1 fl High 35.1-43.9 [facility] Comment on above: Performed By: #### L 500.4050, L100.0100 ####[facility] [address] [place], [address] WBC (Bld) [#/Vol] 9.7 10*3/uL Normal 4.4-11.0 [facility] Comment on above: Performed By: #### L 500.4050, L100.0100 ####[facility] [address] [place], [address] Calcium [Mass/Vol]Ordered By : Abundio Tyson on 09-18-2024 Serum or plasma calcium measurement (mass/volume) 10.9 mg/dL 7.6-11.0 [facility] Carbon dioxide measurementOr dered By: Abundio Tyson on 09-18-2024 Carbon dioxide measurement 26.0 mmol/L 22.0-29.0 [facility] Chest 1 View (Portable)on Chest 1 View (Portable) Normal [facility] Chloride measurementOrdered By: Abundio Tyson on 09-18-2024 Chloride measurement 103 mmol/L 96-108 [facility] Clarity (U)Ordered By: Abundio Tyson on 09-18-2024 Urine clarity Clear Clear [facility] Color (U)Ordered By: Abundio colvin on 09-18-2024 Urine color determination Yellow Yellow [facility] Comprehensive Metabolic Prof ilon 09-18-2024 Albumin [Mass/Vol] 3.7 g/dL Normal 3.4-4.8 [facility] Comment on above: Performed By: #### L 500.4050, L100.0100 ####[facility] [address] [place], [address] Albumin/Globulin [Mass ratio] 1.4 {ratio} Normal 0.9-2.4 [facility] Comment on above: Performed By: #### L 500.4050, L100.0100 ####[facility] [address] [place], [address] ALK PHOS 112 U/L High 35-104 [facility] Comment on above: Performed By: #### L 500.4050, L100.0100 ####[facility] [address] [place], [address] ALT [Catalytic activity/Vol] 11 U/L Normal <=34 [facility] Comment on above: Performed By: #### L 500.4050, L100.0100 ####[facility] [address] [place], [address] Anion gap [Moles/Vol] 10 mmol/L Normal 5-15 [facility] Comment on above: Performed By: #### L 500.4050, L100.0100 ####[facility] [address] [place], [address] AST [Catalytic activity/Vol] 17 U/L Normal <=31 [facility] Comment on above: Performed By: #### L 500.4050, L100.0100 ####[facility] [address] [place], [address] Bilirubin [Mass/Vol] 0.40 mg/dL Normal 0.00-1.30 [facility] Comment on above: Performed By: #### L 500.4050, L100.0100 ####[facility] [address] [place], [address] BUN/CRE 21.8 RATIO High 10-20 [facility] Comment on above: Performed By: #### L 500.4050, L100.0100 ####[facility] [address] [place], [address] Calcium [Mass/Vol] 10.9 mg/dL Normal 7.6-11.0 [facility] Comment on above: Performed By: #### L 500.4050, L100.0100 ####[facility] [address] [place], [address] Chloride [Moles/Vol] 103 mmol/L Normal 96-108 [facility] Comment on above: Performed By: #### L 500.4050, L100.0100 ####[facility] [address] [place], [address] CO2 [Moles/Vol] 26.0 mmol/L Normal 22.0-29.0 [facility] Comment on above: Performed By: #### L 500.4050, L100.0100 ####[facility] [address] [place], [address] Creatinine [Mass/Vol] 0.5 mg/dL Low 0.6-1.0 [facility] Comment on above: Performed By: #### L 500.4050, L100.0100 ####[facility] [address] [place], [address] ECRCL 50.34 ml/min Normal [facility] Comment on above: Performed By: #### L 500.4050, L100.0100 ####[facility] [address] [place], [address] GFR/1.73 sq M.predicted among non-blacks MDRD (S/P/Bld) [Vol rate/Area] 93 mL/min/{1.73_m2} Normal >60 [facility] Comment on above: Result Comment: mL/m in/1.73m2 CKD-EPI Creatinine Equation (2020) Performed By: #### L 500.4050, L100.0100 ####[facility] [address] [place], [address] Globulin (S) [Mass/Vol] 2.7 g/dL Normal 2.2-4.2 [facility] Comment on above: Performed By: #### L 500.4050, L100.0100 ####[facility] [address] [place], [address] Glucose [Mass/Vol] 98 mg/dL Normal 70-99 [facility] Comment on above: Performed By: #### L 500.4050, L100.0100 ####[facility] [address] [place], [address] Potassium [Moles/Vol] 4.2 mmol/L Normal 3.3-5.1 [facility] Comment on above: Performed By: #### L 500.4050, L100.0100 ####[facility] [address] [place], [address] Sodium [Moles/Vol] 138 mmol/L Normal 133-145 [facility] Comment on above: Performed By: #### L 500.4050, L100.0100 ####[facility] [address] [place], [address] T PROT 6.4 g/dL Normal 5.9-8.4 [facility] Comment on above: Performed By: #### L 500.4050, L100.0100 ####[facility] [address] [place], [address] Urea nitrogen [Mass/Vol] 11 mg/dL Normal 4-19 [facility] Comment on above: Performed By: #### L 500.4050, L100.0100 ####[facility] [address] [place], [address] Creatinine [Moles/Vol]Ordere d By: Abundio Tyson on 09-18-2024 Serum or plasma creatinine measurement (moles/volume) 0.5 mg/dL Low 0.6-1.0 [facility] Emergency Department Summary on 09-18-2024 Emergency Department Summary Normal [facility] Eosinophil percentageOrdered By: Abundio Tyson on 09-18-2024 Eosinophil percentage 3.9 % 0-5 [facility] Epithelial cells.squamous LM Ql (Urine sed)Ordered By: Abundio Tyson on 09-18-2024 Squamous epithelial cells detection in urine sediment by light microscopy 0-5 SEEN /hpf 5-10 [facility] Erythrocyte distribution wid th (RBC) [Ratio]Ordered By: Abundio Tyson on 09-18-2024 Erythrocyte distribution width ratio 14.0 % 11.6-14.6 [facility] Erythrocyte distribution width standard deviation 45.1 fl High 35.1-43.9 [facility] Estimation of creatinine hernando aranceOrdered By: Abundio Tyson on 09-18-2024 Estimation of creatinine clearance 50.34 ml/min [facility] GFR/1.73 sq M.predicted isela g non-blacks MDRD (S/P/Bld) [Vol rate/Area]Ordered By: Abundio Tyson on 09-18-2024 Glomerular filtration rate (GFR) estimation/1.73 sq m using serum, plasma, or whole b 93 >60 [facility] Glucose [Mass/Vol]Ordered By : Abundio Tyson on 09-18-2024 Serum glucose measurement (mass/volume) 98 mg/dL 70-99 [facility] Hematocrit Auto (Bld) [Volum e fraction]Ordered By: Abundio Tyson on 09-18-2024 Automated blood hematocrit (percentage) 41.5 % 37-47 [facility] Hemoglobin measurementOrdere d By: Abundio Tyson on 09-18-2024 Hemoglobin measurement 13.5 g/dL 12.0-15.[address] [facility] Immature granulocytes/100 WB C Auto (Bld)Ordered By: Abundio Tyson on 09-18-2024 Automated immature granulocyte percentage 0.500 % 0.0-0.9 [facility] L499.0042on 09-18-2024 Trop T Delta 0 Normal [facility] Comment on above: Result Comment: If c linical suspicion for ACS is high, suggest getting athird troponin. Otherwise, stress test or CTCA. Performed By: #### L 499.0042 ####[facility] [address] [place], [place], [address] Trop T High Sen 14 ng/L Normal <=14 [facility] Comment on above: Performed By: #### L 499.0042 ####[facility] [address] [place], [address] L499.0043on 09-18-2024 Trop T Delta Normal [facility] Comment on above: Result Comment: PT D ISCHARGED FROM ED Performed By: #### L 499.0043 ####[facility] [address] [place], [address] Trop T High Sen Normal <=14 [facility] Comment on above: Result Comment: PT D ISCHARGED FROM ED Performed By: #### L 499.0043 ####[facility] [address] [place], [address] L501.4021on 09-18-2024 Trop T High Sen 15 ng/L High <=14 [facility] Comment on above: Performed By: #### L 501.4021 ####[facility] [address] [place], [address] Lymphocytes Auto (Unsp spec) [#/Vol]Ordered By: Abundio Tyson on 09-18-2024 Absolute lymphocyte count 1.75 X10^3/uL 0.83-4.51 [facility] Lymphocytes/100 WBC Auto (Un sp spec)Ordered By: Abundio Tyson on 09-18-2024 Automated lymphocyte count as percentage of total leukocytes 18.0 % Low 19-41 [facility] MCV (RBC) [Entitic vol]Order ed By: Abundio Tyson on 09-18-2024 MCV (mean corpuscular volume) determination 87.6 fL 81-99 [facility] Mean corpuscular hemoglobin (MCH) determinationOrdered By: Abundio Tyson on 09-18-2024 Mean corpuscular hemoglobin (MCH) determination 28.5 pg 27.0-32.0 [facility] Mean corpuscular hemoglobin concentration (MCHC) determinationOrdered By: Abundio Tyson on 09-18-2024 Mean corpuscular hemoglobin concentration (MCHC) determination 32.5 g/dL 32-36 [facility] Mean platelet volume determi nationOrdered By: Abundio Tyson on 09-18-2024 Mean platelet volume determination 10.2 fl 6.2-12.0 [facility] Monocyte percentageOrdered B y: Abundio Tyson on 09-18-2024 Monocyte percentage 9.5 % 0-10 [facility] Neutrophil percentageOrdered By: Abundio Tyson on 09-18-2024 Neutrophil percentage 67.3 % 47-70 [facility] No Panel InformationOrdered By: Abundio Tyson on 09-18-2024 0 [facility] 15 ng/L High <14 [facility] 17 U/L <32 [facility] Nucleated red blood cell per centageOrdered By: Abundio Tyson on 09-18-2024 Nucleated red blood cell percentage 0 % 0-5 [facility] Platelet countOrdered By: Vance Tyson on 09-18-2024 Platelet count 290 K/mm3 150-450 [facility] Potassium [Moles/Vol]Ordered By: Abundio Tyson on 09-18-2024 Serum or plasma potassium measurement 4.2 mmol/L 3.3-5.1 [facility] RBC Auto (Bld) [#/Vol]Ordere d By: Abundio Tyson on 09-18-2024 Automated blood erythrocyte count 4.74 M/mm3 4.2-5.4 [facility] Serum globulin measurementOr dered By: Abundio Tyson on 09-18-2024 Serum globulin measurement 2.7 g/dL 2.2-4.2 [facility] Sodium [Moles/Vol]Ordered By : Abundio Tyson on 09-18-2024 Serum or plasma sodium measurement (moles/volume) 138 mmol/L 133-145 [facility] Specific gravity (U) [Rel de nsity]Ordered By: Abundio Tyson on 09-18-2024 Urine specific gravity measurement 1.010 1.002-1.030 [facility] Total proteinOrdered By: Zaynab Tyson on 09-18-2024 Total protein 6.4 g/dL 5.9-8.4 [facility] Troponin T.cardiac High sens itivity method [Mass/Vol]Ordered By: Abundio Tyson on 09-18-2024 Troponin T.cardiac [Mass/volume] in Serum or Plasma by High sensitivity method 14 ng/L <14 [facility] Urea nitrogen [Mass/Vol]Orde red By: Abundio Tyson on 09-18-2024 Serum or plasma urea nitrogen measurement (mass/volume) 11 mg/dL 4-19 [facility] Urinalysis, Completeon 09-18 EPI,SQUAMOUS 0-5 SEEN Normal 5-10 [facility] Comment on above: Order Comment: CLEAN CATCH Performed By: #### L 400.0001 ####[facility] [address] [place], [place], [id number] RBC 0 SEEN Normal 0-5 [facility] Comment on above: Order Comment: CLEAN CATCH Performed By: #### L 400.0001 ####[facility] [address] [place], [address] BACTERIA 0 SEEN Normal None Seen [facility] Comment on above: Order Comment: CLEAN CATCH Performed By: #### L 400.0001 ####[facility] [address] [place], [address] Mucus Ql (Urine sed) 0 SEEN Normal [facility] Comment on above: Order Comment: CLEAN CATCH Performed By: #### L 400.0001 ####[facility] [address] [place], [address] WBC 0 SEEN Normal 0-5 [facility] Comment on above: Order Comment: CLEAN CATCH Performed By: #### L 400.0001 ####[facility] [address] [place], [address] Urine glucose detectionOrder ed By: Abundio Tyson on 09-18-2024 Urine glucose detection Normal mg/dl Normal [facility] Urine total bilirubin detect ion by test stripOrdered By: Abundio Tyson on 09-18-2024 Urine total bilirubin detection by test strip Negative Negative [facility] White blood cell (WBC) count Ordered By: Abundio Tyson on 09-18-2024 White blood cell (WBC) count 9.7 K/mm3 4.4-11.0 [facility] White blood cell countOrdere d By: Abundio Tyson on 09-18-2024 White blood cell count 0 SEEN /hpf [facility] pH (U)Ordered By: Abundio Cornejo ca on 09-18-2024 Urine pH 8.0 5.0 - 8.0 [facility] Basic Metabolic Profile (BMP )on 09-03-2024 BUN/CRE 28.0 RATIO High 10-20 [facility] Comment on above: Order Comment: 101-1 Performed By: #### L 100.0500, L500.2500 ####[facility] [address] [place], [address] CA,Total 10.3 mg/dL High 8.5-10.1 [facility] Comment on above: Order Comment: 101-1 Performed By: #### L 100.0500, L500.2500 ####[facility] [address] [place], [address] Chloride [Moles/Vol] 112 mmol/L High 98-107 [facility] Comment on above: Order Comment: 101-1 Performed By: #### L 100.0500, L500.2500 ####[facility] [address] [place], [address] CO2 [Moles/Vol] 26.0 mmol/L Normal 21.0-32.0 [facility] Comment on above: Order Comment: 101-1 Performed By: #### L 100.0500, L500.2500 ####[facility] [address] [place], [address] Creatinine [Mass/Vol] 0.46 mg/dL Low 0.55-1.02 [facility] Comment on above: Order Comment: 101-1 Result Comment: The validity of the calculated GFR GFRAA in patients over70 years has not been determined. Clinical correlation isessential. Performed By: #### L 100.0500, L500.2500 ####[facility] [address] [place], [address] EST GFR - AA 165 mL/min Normal >60 [facility] Comment on above: Order Comment: 101-1 Result Comment: Afri can [facility] GFR Calc Performed By: #### L 100.0500, L500.2500 ####[facility] [address] [place], [address] GAP 4 Low 5-15 [facility] Comment on above: Order Comment: 101-1 Performed By: #### L 100.0500, L500.2500 ####[facility] [address] [place], [address] GFR/1.73 sq M.predicted among non-blacks MDRD (S/P/Bld) [Vol rate/Area] 136 mL/min/{1.73_m2} Normal >60 [facility] Comment on above: Order Comment: 101-1 Result Comment: Non- GFR Calc Performed By: #### L 100.0500, L500.2500 ####[facility] [address] [place], [address] Glucose [Mass/Vol] 99 mg/dL Normal 74-106 [facility] Comment on above: Order Comment: 101-1 Performed By: #### L 100.0500, L500.2500 ####[facility] [address] [place], [address] Potassium [Moles/Vol] 4.0 mmol/L Normal 3.5-5.1 [facility] Comment on above: Order Comment: 101-1 Performed By: #### L 100.0500, L500.2500 ####[facility] [address] [place], [address] Sodium [Moles/Vol] 142 mmol/L Normal 136-145 [facility] Comment on above: Order Comment: 101-1 Performed By: #### L 100.0500, L500.2500 ####[facility] [address] [place], [address] Urea nitrogen [Mass/Vol] 13 mg/dL Normal 7-18 [facility] Comment on above: Order Comment: 101-1 Performed By: #### L 100.0500, L500.2500 ####[facility] [address] [place], [address] Blood urea nitrogen (BUN)/cr eatinine ratioOrdered By: James Leach on 09-03-2024 Blood urea nitrogen (BUN)/creatinine ratio 28.0 RATIO High 10-20 [facility] CBC-Complete Blood Cnt No Di ffon 09-03-2024 Erythrocyte distribution width (RBC) [Ratio] 15.1 % High 11.6-14.6 [facility] Comment on above: Order Comment: 101-1 Performed By: #### L 100.0500, L500.2500 ####[facility] [address] [place], [address] Hematocrit (Bld) [Volume fraction] 37.1 % Normal 37-47 [facility] Comment on above: Order Comment: 101-1 Performed By: #### L 100.0500, L500.2500 ####[facility] [address] [place], [address] Hemoglobin (Bld) [Mass/Vol] 11.2 g/dL Low 12.0-15.0 [facility] Comment on above: Order Comment: 101-1 Performed By: #### L 100.0500, L500.2500 ####[facility] [address] [place], [address] MCH (RBC) [Entitic mass] 27.5 pg Normal 27.0-32.0 [facility] Comment on above: Order Comment: 101-1 Performed By: #### L 100.0500, L500.2500 ####[facility] [address] [place], [address] MCHC (RBC) [Mass/Vol] 30.2 g/dL Low 32-36 [facility] Comment on above: Order Comment: 101-1 Performed By: #### L 100.0500, L500.2500 ####[facility] [address] [place], [address] MCV (RBC) [Entitic vol] 91.2 fL Normal 81-99 [facility] Comment on above: Order Comment: 101-1 Performed By: #### L 100.0500, L500.2500 ####[facility] [address] [place], [address] Platelet mean volume (Bld) [Entitic vol] 10.6 fL Normal 6.2-12.0 [facility] Comment on above: Order Comment: 101-1 Performed By: #### L 100.0500, L500.2500 ####[facility] [address] [place], [address] Platelets (Bld) [#/Vol] 238 10*3/uL Normal 150-450 [facility] Comment on above: Order Comment: 101-1 Performed By: #### L 100.0500, L500.2500 ####[facility] [address] [place], [address] RBC (Bld) [#/Vol] 4.07 10*6/uL Low 4.2-5.4 [facility] Comment on above: Order Comment: 101-1 Performed By: #### L 100.0500, L500.2500 ####[facility] [address] [place], [address] RDW SD 50.7 fl High 35.1-43.9 [facility] Comment on above: Order Comment: 101-1 Performed By: #### L 100.0500, L500.2500 ####[facility] [address] [place], [address] WBC (Bld) [#/Vol] 6.9 10*3/uL Normal 4.4-11.0 [facility] Comment on above: Order Comment: 101-1 Performed By: #### L 100.0500, L500.2500 ####[facility] [address] [place], [address] Calcium [Mass/Vol]Ordered By : James Leach on 09-03-2024 Serum or plasma calcium measurement (mass/volume) 10.3 mg/dL High 8.5-10.1 [facility] Carbon dioxide measurementOr dered By: James Leach on 09-03-2024 Carbon dioxide measurement 26.0 mmol/L 21.0-32.0 [facility] Chloride measurementOrdered By: James Leach on 09-03-2024 Chloride measurement 112 mmol/L High 98-107 [facility] Creatinine [Mass/Vol]Ordered By: James Leach on 09-03-2024 Serum or plasma creatinine measurement (mass/volume) 0.46 mg/dL Low 0.55-1.02 [facility] Erythrocyte distribution wid th (RBC) [Ratio]Ordered By: James Leach on 09-03-2024 Erythrocyte distribution width ratio 15.1 % High 11.6-14.6 [facility] Erythrocyte distribution width standard deviation 50.7 fl High 35.1-43.9 [facility] Estimated glomerular filtrat ion rate (GFR) AmericanOrdered By: James Leach on 09-03-2024 Estimated glomerular filtration rate (GFR) 165 mL/min >60 [facility] Glomerular filtration rate ( GFR) estimationOrdered By: James Leach on 09-03-2024 Glomerular filtration rate (GFR) estimation 136 mL/min >60 [facility] Glucose measurementOrdered B y: James Leach on 09-03-2024 Glucose measurement 99 mg/dL 74-106 [facility] Hematocrit Auto (Bld) [Volum e fraction]Ordered By: James Leach on 09-03-2024 Automated blood hematocrit (percentage) 37.1 % 37-47 [facility] Hemoglobin measurementOrdere d By: James Leach on 09-03-2024 Hemoglobin measurement 11.2 g/dL Low 12.0-15.[address] [facility] MCV (RBC) [Entitic vol]Order ed By: James Leach on 09-03-2024 MCV (mean corpuscular volume) determination 91.2 fL 81-99 [facility] Mean corpuscular hemoglobin (MCH) determinationOrdered By: James Leach on 09-03-2024 Mean corpuscular hemoglobin (MCH) determination 27.5 pg 27.0-32.0 [facility] Mean corpuscular hemoglobin concentration (MCHC) determinationOrdered By: James Leach on 09-03-2024 Mean corpuscular hemoglobin concentration (MCHC) determination 30.2 g/dL Low 32-36 [facility] Mean platelet volume determi nationOrdered By: James Leach on 09-03-2024 Mean platelet volume determination 10.6 fl 6.2-12.0 [facility] Platelet countOrdered By: Mykel Leach on 09-03-2024 Platelet count 238 K/mm3 150-450 [facility] Potassium measurementOrdered By: James Leach on 09-03-2024 Potassium measurement 4.0 mmol/L 3.5-5.1 [facility] RBC Auto (Bld) [#/Vol]Ordere d By: James Leach on 09-03-2024 Automated blood erythrocyte count 4.07 M/mm3 Low 4.2-5.4 [facility] Serum anion gap measurementO rdered By: James Leach on 09-03-2024 Serum anion gap measurement 4 Low 5-15 [facility] Sodium levelOrdered By: Mekhi Leach on 09-03-2024 Sodium level 142 mmol/L 136-145 [facility] Urea nitrogen [Mass/Vol]Orde red By: James Leach on 09-03-2024 Serum or plasma urea nitrogen measurement (mass/volume) 13 mg/dL 7-18 [facility] White blood cell (WBC) count Ordered By: James Leach on 09-03-2024 White blood cell (WBC) count 6.9 K/mm3 4.4-11.0 [facility] Absolute neutrophil countOrd ered By: Niall Loco on 09-02-2024 Absolute neutrophil count 4.2 X10^3/uL 2.0-7.7 [facility] Basic Metabolic Profile (BMP )on 09-02-2024 BUN/CRE 27.6 RATIO High 10-20 [facility] Comment on above: Performed By: #### L 100.0100, L500.2500 ####[facility] [address] [place], [address] CA,Total 10.3 mg/dL High 8.5-10.1 [facility] Comment on above: Performed By: #### L 100.0100, L500.2500 ####[facility] [address] [place], [address] Chloride [Moles/Vol] 111 mmol/L High 98-107 [facility] Comment on above: Performed By: #### L 100.0100, L500.2500 ####[facility] [address] [place], [address] CO2 [Moles/Vol] 28.0 mmol/L Normal 21.0-32.0 [facility] Comment on above: Performed By: #### L 100.0100, L500.2500 ####[facility] [address] [place], [address] Creatinine [Mass/Vol] 0.40 mg/dL Low 0.55-1.02 [facility] Comment on above: Result Comment: The validity of the calculated GFR GFRAA in patients over70 years has not been determined. Clinical correlation isessential. Performed By: #### L 100.0100, L500.2500 ####[facility] [address] [place], [address] ECRCL 48.92 ml/min Normal [facility] Comment on above: Performed By: #### L 100.0100, L500.2500 ####[facility] [address] [place], [address] EST GFR - AA 197 mL/min Normal >60 [facility] Comment on above: Result Comment: Afri can [facility] GFR Calc Performed By: #### L 100.0100, L500.2500 ####[facility] [address] [place], [address] GAP 4 Low 5-15 [facility] Comment on above: Performed By: #### L 100.0100, L500.2500 ####[facility] [address] [place], [address] GFR/1.73 sq M.predicted among non-blacks MDRD (S/P/Bld) [Vol rate/Area] 163 mL/min/{1.73_m2} Normal >60 [facility] Comment on above: Result Comment: Non- GFR Calc Performed By: #### L 100.0100, L500.2500 ####[facility] [address] [place], [address] Glucose [Mass/Vol] 86 mg/dL Normal 74-106 [facility] Comment on above: Performed By: #### L 100.0100, L500.2500 ####[facility] [address] [place], [address] Potassium [Moles/Vol] 3.8 mmol/L Normal 3.5-5.1 [facility] Comment on above: Performed By: #### L 100.0100, L500.2500 ####[facility] [address] [place], [address] Sodium [Moles/Vol] 142 mmol/L Normal 136-145 [facility] Comment on above: Performed By: #### L 100.0100, L500.2500 ####[facility] [address] [place], [address] Urea nitrogen [Mass/Vol] 11 mg/dL Normal 7-18 [facility] Comment on above: Performed By: #### L 100.0100, L500.2500 ####[facility] [address] [place], [address] Basophil percentageOrdered B y: Niall Loco on 09-02-2024 Basophil percentage 1.0 % 0-1 [facility] Blood urea nitrogen (BUN)/cr eatinine ratioOrdered By: Niall Loco on 09-02-2024 Blood urea nitrogen (BUN)/creatinine ratio 27.6 RATIO High 10-20 [facility] CBC W/Diff, Automatedon 08-23 Absolute Lymph 1.36 X10 3/uL Normal 0.83-4.51 [facility] Comment on above: Performed By: #### L 100.0100, L500.2500 ####[facility] [address] [place], [address] Absolute Neut 4.2 X10 3/uL Normal 2.0-7.7 [facility] Comment on above: Performed By: #### L 100.0100, L500.2500 ####[facility] [address] [place], [address] Basophils/100 WBC (Bld) 1.0 % Normal 0-1 [facility] Comment on above: Performed By: #### L 100.0100, L500.2500 ####[facility] [address] [place], [address] Eosinophils/100 WBC (Bld) 6.6 % High 0-5 [facility] Comment on above: Performed By: #### L 100.0100, L500.2500 ####[facility] [address] [place], [address] Erythrocyte distribution width (RBC) [Ratio] 14.9 % High 11.6-14.6 [facility] Comment on above: Performed By: #### L 100.0100, L500.2500 ####[facility] [address] [place], [address] Hematocrit (Bld) [Volume fraction] 37.4 % Normal 37-47 [facility] Comment on above: Performed By: #### L 100.0100, L500.2500 ####[facility] [address] [place], [address] Hemoglobin (Bld) [Mass/Vol] 11.5 g/dL Low 12.0-15.0 [facility] Comment on above: Performed By: #### L 100.0100, L500.2500 ####[facility] [address] [place], [address] IG% 0.400 Normal 0.0-0.9 [facility] Comment on above: Result Comment: IG% - Immature Granulocytes (promyelocytes, myelocytes andmetamyelocytes) > 1% indicates that a LEFT SHIFT is Present. Performed By: #### L 100.0100, L500.2500 ####[facility] [address] [place], [address] Lymphocytes/100 WBC (Bld) 19.9 % Normal 19-41 [facility] Comment on above: Performed By: #### L 100.0100, L500.2500 ####[facility] [address] [place], [address] MCH (RBC) [Entitic mass] 27.5 pg Normal 27.0-32.0 [facility] Comment on above: Performed By: #### L 100.0100, L500.2500 ####[facility] [address] [place], [address] MCHC (RBC) [Mass/Vol] 30.7 g/dL Low 32-36 [facility] Comment on above: Performed By: #### L 100.0100, L500.2500 ####[facility] [address] [place], [address] MCV (RBC) [Entitic vol] 89.5 fL Normal 81-99 [facility] Comment on above: Performed By: #### L 100.0100, L500.2500 ####[facility] [address] [place], [address] Monocytes/100 WBC (Bld) 11.1 % High 0-10 [facility] Comment on above: Performed By: #### L 100.0100, L500.2500 ####[facility] [address] [place], [address] Neutrophils/100 WBC (Bld) 61.0 % Normal 47-70 [facility] Comment on above: Performed By: #### L 100.0100, L500.2500 ####[facility] [address] [place], [address] Nucleated RBC (Bld) [#/Vol] 0 10*3/uL Normal 0-5 [facility] Comment on above: Performed By: #### L 100.0100, L500.2500 ####[facility] [address] [place], [address] Platelet mean volume (Bld) [Entitic vol] 10.4 fL Normal 6.2-12.0 [facility] Comment on above: Performed By: #### L 100.0100, L500.2500 ####[facility] [address] [place], [address] Platelets (Bld) [#/Vol] 242 10*3/uL Normal 150-450 [facility] Comment on above: Performed By: #### L 100.0100, L500.2500 ####[facility] [address] [place], [address] RBC (Bld) [#/Vol] 4.18 10*6/uL Low 4.2-5.4 [facility] Comment on above: Performed By: #### L 100.0100, L500.2500 ####[facility] [address] [place], [address] RDW SD 49.2 fl High 35.1-43.9 [facility] Comment on above: Performed By: #### L 100.0100, L500.2500 ####[facility] [address] [place], [address] WBC (Bld) [#/Vol] 6.8 10*3/uL Normal 4.4-11.0 [facility] Comment on above: Performed By: #### L 100.0100, L500.2500 ####[facility] [address] [place], [address] Calcium [Mass/Vol]Ordered By : Niall Loco on 09-02-2024 Serum or plasma calcium measurement (mass/volume) 10.3 mg/dL High 8.5-10.1 [facility] Carbon dioxide measurementOr dered By: Naill Loco on 09-02-2024 Carbon dioxide measurement 28.0 mmol/L 21.0-32.0 [facility] Chloride measurementOrdered By: Niall Loco on 09-02-2024 Chloride measurement 111 mmol/L High 98-107 [facility] Creatinine [Mass/Vol]Ordered By: Niall Loco on 09-02-2024 Serum or plasma creatinine measurement (mass/volume) 0.40 mg/dL Low 0.55-1.02 [facility] Eosinophil percentageOrdered By: Niall Loco on 09-02-2024 Eosinophil percentage 6.6 % High 0-5 [facility] Erythrocyte distribution wid th (RBC) [Ratio]Ordered By: Niall Loco on 09-02-2024 Erythrocyte distribution width ratio 14.9 % High 11.6-14.6 [facility] Erythrocyte distribution width standard deviation 49.2 fl High 35.1-43.9 [facility] Estimated glomerular filtrat ion rate (GFR) AmericanOrdered By: Niall Loco on 09-02-2024 Estimated glomerular filtration rate (GFR) 197 mL/min >60 [facility] Estimation of creatinine hernando aranceOrdered By: Niall Loco on 09-02-2024 Estimation of creatinine clearance 48.92 ml/min [facility] Glomerular filtration rate ( GFR) estimationOrdered By: Niall Loco on 09-02-2024 Glomerular filtration rate (GFR) estimation 163 mL/min >60 [facility] Glucose measurementOrdered B y: Niall Loco on 09-02-2024 Glucose measurement 86 mg/dL 74-106 [facility] Hematocrit Auto (Bld) [Volum e fraction]Ordered By: Niall Loco on 09-02-2024 Automated blood hematocrit (percentage) 37.4 % 37-47 [facility] Hemoglobin measurementOrdere d By: Niall Loco on 09-02-2024 Hemoglobin measurement 11.5 g/dL Low 12.0-15.[address] [facility] Immature granulocytes/100 WB C Auto (Bld)Ordered By: Niall Loco on 09-02-2024 Automated immature granulocyte percentage 0.400 % 0.0-0.9 [facility] Lymphocytes Auto (Unsp spec) [#/Vol]Ordered By: Niall Loco on 09-02-2024 Absolute lymphocyte count 1.36 X10^3/uL 0.83-4.51 [facility] Lymphocytes/100 WBC Auto (Un sp spec)Ordered By: Niall Loco on 09-02-2024 Automated lymphocyte count as percentage of total leukocytes 19.9 % 19-41 [facility] MCV (RBC) [Entitic vol]Order ed By: Niall Loco on 09-02-2024 MCV (mean corpuscular volume) determination 89.5 fL 81-99 [facility] Mean corpuscular hemoglobin (MCH) determinationOrdered By: Niall Loco on 09-02-2024 Mean corpuscular hemoglobin (MCH) determination 27.5 pg 27.0-32.0 [facility] Mean corpuscular hemoglobin concentration (MCHC) determinationOrdered By: Niall Loco on 09-02-2024 Mean corpuscular hemoglobin concentration (MCHC) determination 30.7 g/dL Low 32-36 [facility] Mean platelet volume determi nationOrdered By: Niall Loco on 09-02-2024 Mean platelet volume determination 10.4 fl 6.2-12.0 [facility] Monocyte percentageOrdered B y: Niall Loco on 09-02-2024 Monocyte percentage 11.1 % High 0-10 [facility] Neutrophil percentageOrdered By: Niall Loco on 09-02-2024 Neutrophil percentage 61.0 % 47-70 [facility] Nucleated red blood cell per centageOrdered By: Niall Loco on 09-02-2024 Nucleated red blood cell percentage 0 % 0-5 [facility] Platelet countOrdered By: Bob Loco on 09-02-2024 Platelet count 242 K/mm3 150-450 [facility] Potassium measurementOrdered By: Niall Loco on 09-02-2024 Potassium measurement 3.8 mmol/L 3.5-5.1 [facility] RBC Auto (Bld) [#/Vol]Ordere d By: Niall Loco on 09-02-2024 Automated blood erythrocyte count 4.18 M/mm3 Low 4.2-5.4 [facility] Serum anion gap measurementO rdered By: Niall Loco on 09-02-2024 Serum anion gap measurement 4 Low 5-15 [facility] Sodium levelOrdered By: Beto Loco on 09-02-2024 Sodium level 142 mmol/L 136-145 [facility] Urea nitrogen [Mass/Vol]Orde red By: Niall Looc on 09-02-2024 Serum or plasma urea nitrogen measurement (mass/volume) 11 mg/dL 7-18 [facility] White blood cell (WBC) count Ordered By: Niall Loco on 09-02-2024 White blood cell (WBC) count 6.8 K/mm3 4.4-11.0 [facility] Basic Metabolic Profile (BMP )on 09-01-2024 BUN/CRE 27.5 RATIO High 10-20 [facility] Comment on above: Performed By: #### L 500.2500, L100.0100 ####[facility] [address] [place], [address] CA,Total 10.6 mg/dL High 8.5-10.1 [facility] Comment on above: Performed By: #### L 500.2500, L100.0100 ####[facility] [address] [place], [address] Chloride [Moles/Vol] 111 mmol/L High 98-107 [facility] Comment on above: Performed By: #### L 500.2500, L100.0100 ####[facility] [address] [place], [address] CO2 [Moles/Vol] 28.0 mmol/L Normal 21.0-32.0 [facility] Comment on above: Performed By: #### L 500.2500, L100.0100 ####[facility] [address] [place], [address] Creatinine [Mass/Vol] 0.47 mg/dL Low 0.55-1.02 [facility] Comment on above: Result Comment: The validity of the calculated GFR GFRAA in patients over70 years has not been determined. Clinical correlation isessential. Performed By: #### L 500.2500, L100.0100 ####[facility] [address] [place], [address] ECRCL 48.92 ml/min Normal [facility] Comment on above: Performed By: #### L 500.2500, L100.0100 ####[facility] [address] [place], [address] EST GFR - AA 162 mL/min Normal >60 [facility] Comment on above: Result Comment: Afri can [facility] GFR Calc Performed By: #### L 500.2500, L100.0100 ####[facility] [address] [place], [address] GAP 3 Low 5-15 [facility] Comment on above: Performed By: #### L 500.2500, L100.0100 ####[facility] [address] [place], [address] GFR/1.73 sq M.predicted among non-blacks MDRD (S/P/Bld) [Vol rate/Area] 134 mL/min/{1.73_m2} Normal >60 [facility] Comment on above: Result Comment: Non- GFR Calc Performed By: #### L 500.2500, L100.0100 ####[facility] [address] [place], [address] Glucose [Mass/Vol] 103 mg/dL Normal 74-106 [facility] Comment on above: Result Comment: Fast ing Glucose result from 100 to 125 mg/dLsuggests IMPAIRED HOMEOSTASIS per A.D.A. criteria. Performed By: #### L 500.2500, L100.0100 ####[facility] [address] [place], [address] Potassium [Moles/Vol] 3.9 mmol/L Normal 3.5-5.1 [facility] Comment on above: Performed By: #### L 500.2500, L100.0100 ####[facility] [address] [place], [address] Sodium [Moles/Vol] 142 mmol/L Normal 136-145 [facility] Comment on above: Performed By: #### L 500.2500, L100.0100 ####[facility] [address] [place], [address] Urea nitrogen [Mass/Vol] 13 mg/dL Normal 7-18 [facility] Comment on above: Performed By: #### L 500.2500, L100.0100 ####[facility] [address] [place], [address] CBC W/Diff, Automatedon 08-23 0-2024 Absolute Lymph 1.21 X10 3/uL Normal 0.83-4.51 [facility] Comment on above: Performed By: #### L 500.2500, L100.0100 ####[facility] [address] [place], [address] Absolute Neut 4.7 X10 3/uL Normal 2.0-7.7 [facility] Comment on above: Performed By: #### L 500.2500, L100.0100 ####[facility] [address] [place], [address] Basophils/100 WBC (Bld) 1.4 % High 0-1 [facility] Comment on above: Performed By: #### L 500.2500, L100.0100 ####[facility] [address] [place], [address] Eosinophils/100 WBC (Bld) 5.9 % High 0-5 [facility] Comment on above: Performed By: #### L 500.2500, L100.0100 ####[facility] [address] [place], [address] Erythrocyte distribution width (RBC) [Ratio] 15.1 % High 11.6-14.6 [facility] Comment on above: Performed By: #### L 500.2500, L100.0100 ####[facility] [address] [place], [address] Hematocrit (Bld) [Volume fraction] 38.1 % Normal 37-47 [facility] Comment on above: Performed By: #### L 500.2500, L100.0100 ####[facility] [address] [place], [address] Hemoglobin (Bld) [Mass/Vol] 12.1 g/dL Normal 12.0-15.0 [facility] Comment on above: Performed By: #### L 500.2500, L100.0100 ####[facility] [address] [place], [address] IG% 0.600 Normal 0.0-0.9 [facility] Comment on above: Result Comment: IG% - Immature Granulocytes (promyelocytes, myelocytes andmetamyelocytes) > 1% indicates that a LEFT SHIFT is Present. Performed By: #### L 500.2500, L100.0100 ####[facility] [address] [place], [address] Lymphocytes/100 WBC (Bld) 16.7 % Low 19-41 [facility] Comment on above: Performed By: #### L 500.2500, L100.0100 ####[facility] [address] [place], [address] MCH (RBC) [Entitic mass] 28.3 pg Normal 27.0-32.0 [facility] Comment on above: Performed By: #### L 500.2500, L100.0100 ####[facility] [address] [place], [address] MCHC (RBC) [Mass/Vol] 31.8 g/dL Low 32-36 [facility] Comment on above: Performed By: #### L 500.2500, L100.0100 ####[facility] [address] [place], [address] MCV (RBC) [Entitic vol] 89.0 fL Normal 81-99 [facility] Comment on above: Performed By: #### L 500.2500, L100.0100 ####[facility] [address] [place], [address] Monocytes/100 WBC (Bld) 11.2 % High 0-10 [facility] Comment on above: Performed By: #### L 500.2500, L100.0100 ####[facility] [address] [place], [address] Neutrophils/100 WBC (Bld) 64.2 % Normal 47-70 [facility] Comment on above: Performed By: #### L 500.2500, L100.0100 ####[facility] [address] [place], [address] Nucleated RBC (Bld) [#/Vol] 0 10*3/uL Normal 0-5 [facility] Comment on above: Performed By: #### L 500.2500, L100.0100 ####[facility] [address] [place], [address] Platelet mean volume (Bld) [Entitic vol] 10.3 fL Normal 6.2-12.0 [facility] Comment on above: Performed By: #### L 500.2500, L100.0100 ####[facility] [address] [place], [address] Platelets (Bld) [#/Vol] 265 10*3/uL Normal 150-450 [facility] Comment on above: Performed By: #### L 500.2500, L100.0100 ####[facility] [address] [place], [address] RBC (Bld) [#/Vol] 4.28 10*6/uL Normal 4.2-5.4 [facility] Comment on above: Performed By: #### L 500.2500, L100.0100 ####[facility] [address] [place], [address] RDW SD 49.1 fl High 35.1-43.9 [facility] Comment on above: Performed By: #### L 500.2500, L100.0100 ####[facility] [address] [place], [address] WBC (Bld) [#/Vol] 7.3 10*3/uL Normal 4.4-11.0 [facility] Comment on above: Performed By: #### L 500.2500, L100.0100 ####[facility] [address] [place], [address] Basic Metabolic Profile (BMP )on 08-31-2024 BUN/CRE 26.1 RATIO High 10-20 [facility] Comment on above: Performed By: #### L 501.2300, L501.5200, L100.0100, L500.2500 ####[facility] [address] [place], [address] CA,Total 9.9 mg/dL Normal 8.5-10.1 [facility] Comment on above: Performed By: #### L 501.2300, L501.5200, L100.0100, L500.2500 ####[facility] [address] [place], [address] Chloride [Moles/Vol] 111 mmol/L High 98-107 [facility] Comment on above: Performed By: #### L 501.2300, L501.5200, L100.0100, L500.2500 ####[facility] [address] [place], [address] CO2 [Moles/Vol] 27.0 mmol/L Normal 21.0-32.0 [facility] Comment on above: Performed By: #### L 501.2300, L501.5200, L100.0100, L500.2500 ####[facility] [address] [place], [address] Creatinine [Mass/Vol] 0.50 mg/dL Low 0.55-1.02 [facility] Comment on above: Result Comment: The validity of the calculated GFR GFRAA in patients over70 years has not been determined. Clinical correlation isessential. Performed By: #### L 501.2300, L501.5200, L100.0100, L500.2500 ####[facility] [address] [place], [address] ECRCL 48.92 ml/min Normal [facility] Comment on above: Performed By: #### L 501.2300, L501.5200, L100.0100, L500.2500 ####[facility] [address] [place], [address] EST GFR - AA 152 mL/min Normal >60 [facility] Comment on above: Result Comment: Afri can [facility] GFR Calc Performed By: #### L 501.2300, L501.5200, L100.0100, L500.2500 ####[facility] [address] [place], [address] GAP 4 Low 5-15 [facility] Comment on above: Performed By: #### L 501.2300, L501.5200, L100.0100, L500.2500 ####[facility] [address] [place], [address] GFR/1.73 sq M.predicted among non-blacks MDRD (S/P/Bld) [Vol rate/Area] 126 mL/min/{1.73_m2} Normal >60 [facility] Comment on above: Result Comment: Non- GFR Calc Performed By: #### L 501.2300, L501.5200, L100.0100, L500.2500 ####[facility] [address] [place], [address] Glucose [Mass/Vol] 97 mg/dL Normal 74-106 [facility] Comment on above: Performed By: #### L 501.2300, L501.5200, L100.0100, L500.2500 ####[facility] [address] [place], [address] Potassium [Moles/Vol] 3.6 mmol/L Normal 3.5-5.1 [facility] Comment on above: Performed By: #### L 501.2300, L501.5200, L100.0100, L500.2500 ####[facility] [address] [place], [address] Sodium [Moles/Vol] 142 mmol/L Normal 136-145 [facility] Comment on above: Performed By: #### L 501.2300, L501.5200, L100.0100, L500.2500 ####[facility] [address] [place], [address] Urea nitrogen [Mass/Vol] 13 mg/dL Normal 7-18 [facility] Comment on above: Performed By: #### L 501.2300, L501.5200, L100.0100, L500.2500 ####[facility] [address] [place], [address] CBC W/Diff, Automatedon 02-0 -2024 Absolute Lymph 1.44 X10 3/uL Normal 0.83-4.51 [facility] Comment on above: Performed By: #### L 501.2300, L501.5200, L100.0100, L500.2500 ####[facility] [address] [place], [address] Absolute Neut 3.6 X10 3/uL Normal 2.0-7.7 [facility] Comment on above: Performed By: #### L 501.2300, L501.5200, L100.0100, L500.2500 ####[facility] [address] [place], [address] Basophils/100 WBC (Bld) 1.3 % High 0-1 [facility] Comment on above: Performed By: #### L 501.2300, L501.5200, L100.0100, L500.2500 ####[facility] [address] [place], [address] Eosinophils/100 WBC (Bld) 6.1 % High 0-5 [facility] Comment on above: Performed By: #### L 501.2300, L501.5200, L100.0100, L500.2500 ####[facility] [address] [place], [address] Erythrocyte distribution width (RBC) [Ratio] 14.9 % High 11.6-14.6 [facility] Comment on above: Performed By: #### L 501.2300, L501.5200, L100.0100, L500.2500 ####[facility] [address] [place], [address] Hematocrit (Bld) [Volume fraction] 37.0 % Normal 37-47 [facility] Comment on above: Performed By: #### L 501.2300, L501.5200, L100.0100, L500.2500 ####[facility] [address] [place], [address] Hemoglobin (Bld) [Mass/Vol] 11.8 g/dL Low 12.0-15.0 [facility] Comment on above: Performed By: #### L 501.2300, L501.5200, L100.0100, L500.2500 ####[facility] [address] [place], [address] IG% 0.300 Normal 0.0-0.9 [facility] Comment on above: Result Comment: IG% - Immature Granulocytes (promyelocytes, myelocytes andmetamyelocytes) > 1% indicates that a LEFT SHIFT is Present. Performed By: #### L 501.2300, L501.5200, L100.0100, L500.2500 ####[facility] [address] [place], [address] Lymphocytes/100 WBC (Bld) 23.0 % Normal 19-41 [facility] Comment on above: Performed By: #### L 501.2300, L501.5200, L100.0100, L500.2500 ####[facility] [address] [place], [address] MCH (RBC) [Entitic mass] 28.4 pg Normal 27.0-32.0 [facility] Comment on above: Performed By: #### L 501.2300, L501.5200, L100.0100, L500.2500 ####[facility] [address] [place], [address] MCHC (RBC) [Mass/Vol] 31.9 g/dL Low 32-36 [facility] Comment on above: Performed By: #### L 501.2300, L501.5200, L100.0100, L500.2500 ####[facility] [address] [place], [address] MCV (RBC) [Entitic vol] 88.9 fL Normal 81-99 [facility] Comment on above: Performed By: #### L 501.2300, L501.5200, L100.0100, L500.2500 ####[facility] [address] [place], [address] Monocytes/100 WBC (Bld) 11.8 % High 0-10 [facility] Comment on above: Performed By: #### L 501.2300, L501.5200, L100.0100, L500.2500 ####[facility] [address] [place], [address] Neutrophils/100 WBC (Bld) 57.5 % Normal 47-70 [facility] Comment on above: Performed By: #### L 501.2300, L501.5200, L100.0100, L500.2500 ####[facility] [address] [place], [address] Nucleated RBC (Bld) [#/Vol] 0 10*3/uL Normal 0-5 [facility] Comment on above: Performed By: #### L 501.2300, L501.5200, L100.0100, L500.2500 ####[facility] [address] [place], [address] Platelet mean volume (Bld) [Entitic vol] 10.1 fL Normal 6.2-12.0 [facility] Comment on above: Performed By: #### L 501.2300, L501.5200, L100.0100, L500.2500 ####[facility] [address] [place], [address] Platelets (Bld) [#/Vol] 283 10*3/uL Normal 150-450 [facility] Comment on above: Performed By: #### L 501.2300, L501.5200, L100.0100, L500.2500 ####[facility] [address] [place], [address] RBC (Bld) [#/Vol] 4.16 10*6/uL Low 4.2-5.4 [facility] Comment on above: Performed By: #### L 501.2300, L501.5200, L100.0100, L500.2500 ####[facility] [address] [place], [address] RDW SD 48.6 fl High 35.1-43.9 [facility] Comment on above: Performed By: #### L 501.2300, L501.5200, L100.0100, L500.2500 ####[facility] [address] [place], [address] WBC (Bld) [#/Vol] 6.3 10*3/uL Normal 4.4-11.0 [facility] Comment on above: Performed By: #### L 501.2300, L501.5200, L100.0100, L500.2500 ####[facility] [address] [place], [address] Magnesiumon 08-31-2024 Magnesium [Mass/Vol] 1.9 mg/dL Normal 1.6-2.6 [facility] Comment on above: Performed By: #### L 501.2300, L501.5200, L100.0100, L500.2500 ####[facility] [address] [place], [address] Magnesium measurementOrdered By: Niall Loco on 08-31-2024 Magnesium measurement 1.9 mg/dL 1.6-2.6 [facility] Phosphoruson 08-31-2024 Phosphate [Mass/Vol] 2.8 mg/dL Normal 2.5-4.9 [facility] Comment on above: Performed By: #### L 501.2300, L501.5200, L100.0100, L500.2500 ####[facility] [address] [place], [address] Phosphorus measurementOrdere d By: Niall Loco on 08-31-2024 Phosphorus measurement 2.8 mg/dL 2.5-4.[address] [facility] Bacteria LM.HPF (Urine sed) [#/Area]Ordered By: Betty Mike on 08-30-2024 Urine sediment bacteria count by microscopy (number/high power field) RARE /hpf None Seen [facility] Basic Metabolic Profile (BMP )on 08-30-2024 BUN/CRE 27.3 RATIO High 10-20 [facility] Comment on above: Performed By: #### L 501.9520, L100.0100, L501.2300, L500.2500, L501.5200 ####[facility] [address] [place], [address] CA,Total 10.4 mg/dL High 8.5-10.1 [facility] Comment on above: Performed By: #### L 501.9520, L100.0100, L501.2300, L500.2500, L501.5200 ####[facility] [address] [place], [address] Chloride [Moles/Vol] 111 mmol/L High 98-107 [facility] Comment on above: Performed By: #### L 501.9520, L100.0100, L501.2300, L500.2500, L501.5200 ####[facility] [address] [place], [address] CO2 [Moles/Vol] 28.0 mmol/L Normal 21.0-32.0 [facility] Comment on above: Performed By: #### L 501.9520, L100.0100, L501.2300, L500.2500, L501.5200 ####[facility] [address] [place], [address] Creatinine [Mass/Vol] 0.55 mg/dL Normal 0.55-1.02 [facility] Comment on above: Result Comment: The validity of the calculated GFR GFRAA in patients over70 years has not been determined. Clinical correlation isessential. Performed By: #### L 501.9520, L100.0100, L501.2300, L500.2500, L501.5200 ####[facility] [address] [place], [address] ECRCL 48.92 ml/min Normal [facility] Comment on above: Performed By: #### L 501.9520, L100.0100, L501.2300, L500.2500, L501.5200 ####[facility] [address] [place], [address] EST GFR - AA 136 mL/min Normal >60 [facility] Comment on above: Result Comment: Afri can [facility] GFR Calc Performed By: #### L 501.9520, L100.0100, L501.2300, L500.2500, L501.5200 ####[facility] [address] [place], [address] GAP 4 Low 5-15 [facility] Comment on above: Performed By: #### L 501.9520, L100.0100, L501.2300, L500.2500, L501.5200 ####[facility] [address] [place], [address] GFR/1.73 sq M.predicted among non-blacks MDRD (S/P/Bld) [Vol rate/Area] 112 mL/min/{1.73_m2} Normal >60 [facility] Comment on above: Result Comment: Non- GFR Calc Performed By: #### L 501.9520, L100.0100, L501.2300, L500.2500, L501.5200 ####[facility] [address] [place], [address] Glucose [Mass/Vol] 92 mg/dL Normal 74-106 [facility] Comment on above: Performed By: #### L 501.9520, L100.0100, L501.2300, L500.2500, L501.5200 ####[facility] [address] [place], [address] Potassium [Moles/Vol] 3.8 mmol/L Normal 3.5-5.1 [facility] Comment on above: Performed By: #### L 501.9520, L100.0100, L501.2300, L500.2500, L501.5200 ####[facility] [address] [place], [address] Sodium [Moles/Vol] 143 mmol/L Normal 136-145 [facility] Comment on above: Performed By: #### L 501.9520, L100.0100, L501.2300, L500.2500, L501.5200 ####[facility] [address] [place], [address] Urea nitrogen [Mass/Vol] 15 mg/dL Normal 7-18 [facility] Comment on above: Performed By: #### L 501.9520, L100.0100, L501.2300, L500.2500, L501.5200 ####[facility] [address] [place], [address] CBC W/Diff, Automatedon 02-0 8-2024 Absolute Lymph 1.38 X10 3/uL Normal 0.83-4.51 [facility] Comment on above: Performed By: #### L 501.9520, L100.0100, L501.2300, L500.2500, L501.5200 ####[facility] [address] [place], [address] Absolute Neut 5.7 X10 3/uL Normal 2.0-7.7 [facility] Comment on above: Performed By: #### L 501.9520, L100.0100, L501.2300, L500.2500, L501.5200 ####[facility] [address] [place], [address] Basophils/100 WBC (Bld) 1.1 % High 0-1 [facility] Comment on above: Performed By: #### L 501.9520, L100.0100, L501.2300, L500.2500, L501.5200 ####[facility] [address] [place], [address] Eosinophils/100 WBC (Bld) 3.7 % Normal 0-5 [facility] Comment on above: Performed By: #### L 501.9520, L100.0100, L501.2300, L500.2500, L501.5200 ####[facility] [address] [place], [address] Erythrocyte distribution width (RBC) [Ratio] 15.0 % High 11.6-14.6 [facility] Comment on above: Performed By: #### L 501.9520, L100.0100, L501.2300, L500.2500, L501.5200 ####[facility] [address] [place], [address] Hematocrit (Bld) [Volume fraction] 39.2 % Normal 37-47 [facility] Comment on above: Performed By: #### L 501.9520, L100.0100, L501.2300, L500.2500, L501.5200 ####[facility] [address] [place], [address] Hemoglobin (Bld) [Mass/Vol] 12.1 g/dL Normal 12.0-15.0 [facility] Comment on above: Performed By: #### L 501.9520, L100.0100, L501.2300, L500.2500, L501.5200 ####[facility] [address] [place], [address] IG% 0.200 Normal 0.0-0.9 [facility] Comment on above: Result Comment: IG% - Immature Granulocytes (promyelocytes, myelocytes andmetamyelocytes) > 1% indicates that a LEFT SHIFT is Present. Performed By: #### L 501.9520, L100.0100, L501.2300, L500.2500, L501.5200 ####[facility] [address] [place], [address] Lymphocytes/100 WBC (Bld) 16.4 % Low 19-41 [facility] Comment on above: Performed By: #### L 501.9520, L100.0100, L501.2300, L500.2500, L501.5200 ####[facility] [address] [place], [address] MCH (RBC) [Entitic mass] 27.4 pg Normal 27.0-32.0 [facility] Comment on above: Performed By: #### L 501.9520, L100.0100, L501.2300, L500.2500, L501.5200 ####[facility] [address] [place], [address] MCHC (RBC) [Mass/Vol] 30.9 g/dL Low 32-36 [facility] Comment on above: Performed By: #### L 501.9520, L100.0100, L501.2300, L500.2500, L501.5200 ####[facility] [address] [place], [address] MCV (RBC) [Entitic vol] 88.9 fL Normal 81-99 [facility] Comment on above: Performed By: #### L 501.9520, L100.0100, L501.2300, L500.2500, L501.5200 ####[facility] [address] [place], [address] Monocytes/100 WBC (Bld) 10.8 % High 0-10 [facility] Comment on above: Performed By: #### L 501.9520, L100.0100, L501.2300, L500.2500, L501.5200 ####[facility] [address] [place], [address] Neutrophils/100 WBC (Bld) 67.8 % Normal 47-70 [facility] Comment on above: Performed By: #### L 501.9520, L100.0100, L501.2300, L500.2500, L501.5200 ####[facility] [address] [place], [address] Nucleated RBC (Bld) [#/Vol] 0 10*3/uL Normal 0-5 [facility] Comment on above: Performed By: #### L 501.9520, L100.0100, L501.2300, L500.2500, L501.5200 ####[facility] [address] [place], [address] Platelet mean volume (Bld) [Entitic vol] 10.1 fL Normal 6.2-12.0 [facility] Comment on above: Performed By: #### L 501.9520, L100.0100, L501.2300, L500.2500, L501.5200 ####[facility] [address] [place], [address] Platelets (Bld) [#/Vol] 305 10*3/uL Normal 150-450 [facility] Comment on above: Performed By: #### L 501.9520, L100.0100, L501.2300, L500.2500, L501.5200 ####[facility] [address] [place], [address] RBC (Bld) [#/Vol] 4.41 10*6/uL Normal 4.2-5.4 [facility] Comment on above: Performed By: #### L 501.9520, L100.0100, L501.2300, L500.2500, L501.5200 ####[facility] [address] [place], [address] RDW SD 48.7 fl High 35.1-43.9 [facility] Comment on above: Performed By: #### L 501.9520, L100.0100, L501.2300, L500.2500, L501.5200 ####[facility] [address] [place], [address] WBC (Bld) [#/Vol] 8.4 10*3/uL Normal 4.4-11.0 [facility] Comment on above: Performed By: #### L 501.9520, L100.0100, L501.2300, L500.2500, L501.5200 ####[facility] [address] [place], [address] Clarity (U)Ordered By: Betty Mike on 08-30-2024 Urine clarity Clear Clear [facility] Color (U)Ordered By: Betty willoughby on 08-30-2024 Urine color determination Yellow Yellow [facility] Intact parathyroid hormone ( iPTH) measurementOrdered By: Btety Mike on 08-30-2024 Intact parathyroid hormone (iPTH) measurement 56.8 pg/mL 18.4-80.1 [facility] Leukocyte esterase Test stri p Ql (U)Ordered By: Betty Mike on 08-30-2024 Urine leukocyte esterase detection by dipstick 25 /ul High Negative [facility] Magnesiumon 08-30-2024 Magnesium [Mass/Vol] 2.0 mg/dL Normal 1.6-2.6 [facility] Comment on above: Performed By: #### L 501.9520, L100.0100, L501.2300, L500.2500, L501.5200 ####[facility] [address] [place], [address] Microscopic analysis of urin e for red blood cells (RBC)Ordered By: Betty Mike on 08-30-2024 Microscopic analysis of urine for red blood cells (RBC) 0-5 SEEN /hpf 5-10 [facility] PTHINon 08-30-2024 PTH 56.8 pg/mL Normal 18.4-80.1 [facility] Comment on above: Performed By: #### L 509.1000 ####[facility] [address] [place], [address] Phosphoruson 08-30-2024 Phosphate [Mass/Vol] 2.9 mg/dL Normal 2.5-4.9 [facility] Comment on above: Performed By: #### L 501.9520, L100.0100, L501.2300, L500.2500, L501.5200 ####[facility] [address] [place], [address] Protein Test strip Ql (U)Ord ered By: Betty Mike on 08-30-2024 Urine protein assay by test strip, semi-quantitative 15 mg/dl High Negative [facility] RESPIRATORY PANEL MOLECULARo n 08-30-2024 RP PANEL Normal [facility] Comment on above: Performed By: #### M 100.638 ####[facility] [address] [place], [address] Specific gravity (U) [Rel de nsity]Ordered By: Betty Mike on 08-30-2024 Urine specific gravity measurement 1.020 1.002-1.030 [facility] TSH QnOrdered By: Betty mcdowell on 08-30-2024 Serum or plasma thyroid stimulating hormone (TSH) measurement (units/volume) 1.470 uIU/mL 0.358-3.740 [facility] Thyroid Stim Hormone (TSH)on 08-30-2024 TSH 1.470 uIU/mL Normal 0.358-3.740 [facility] Comment on above: Performed By: #### L 501.9520, L100.0100, L501.2300, L500.2500, L501.5200 ####[facility] [address] [place], [address] Urinalysis, Completeon 08-30 BACTERIA RARE Normal None Seen [facility] Comment on above: Order Comment: CLEAN CATCH Performed By: #### L 400.0001 ####[facility] [address] [place], [address] EPI,SQUAMOUS 0-5 SEEN Normal 5-10 [facility] Comment on above: Order Comment: CLEAN CATCH Performed By: #### L 400.0001 ####[facility] [address] [place], [address] RBC 0-5 SEEN Normal 0-5 [facility] Comment on above: Order Comment: CLEAN CATCH Performed By: #### L 400.0001 ####[facility] [address] [place], [address] Mucus Ql (Urine sed) 0 SEEN Normal [facility] Comment on above: Order Comment: CLEAN CATCH Performed By: #### L 400.0001 ####[facility] [address] [place], [address] WBC 0 SEEN Normal 0-5 [facility] Comment on above: Order Comment: CLEAN CATCH Performed By: #### L 400.0001 ####[facility] [address] [place], [address] Urine glucose detectionOrder ed By: Betty Mike on 08-30-2024 Urine glucose detection Normal mg/dl Normal [facility] Urine total bilirubin detect ion by test stripOrdered By: Betty Mike on 08-30-2024 Urine total bilirubin detection by test strip Negative Negative [facility] White blood cell countOrdere d By: Betty Mike on 08-30-2024 White blood cell count 0 SEEN /hpf [facility] pH (U)Ordered By: Betty mcdowell on 08-30-2024 Urine pH 6.0 5.0 - 8.0 [facility] 12 Lead EKGon 08-29-2024 12 Lead EKG Normal [facility] 18-KY-Xlszyhv DOrdered By: Kye Mike on 08-29-2024 41-RQ-Ewfnzed D 38.0 ng/mL [facility] Basic Metabolic Profile (BMP )on 08-29-2024 BUN/CRE 20.2 RATIO High 10-20 [facility] Comment on above: Performed By: #### L 500.2500, L100.0100 ####[facility] [address] [place], [address] CA,Total 11.2 mg/dL High 8.5-10.1 [facility] Comment on above: Performed By: #### L 500.2500, L100.0100 ####[facility] [address] [place], [address] Chloride [Moles/Vol] 105 mmol/L Normal 98-107 [facility] Comment on above: Performed By: #### L 500.2500, L100.0100 ####[facility] [address] [place], [address] CO2 [Moles/Vol] 28.0 mmol/L Normal 21.0-32.0 [facility] Comment on above: Performed By: #### L 500.2500, L100.0100 ####[facility] [address] [place], [address] Creatinine [Mass/Vol] 0.64 mg/dL Normal 0.55-1.02 [facility] Comment on above: Result Comment: The validity of the calculated GFR GFRAA in patients over70 years has not been determined. Clinical correlation isessential. Performed By: #### L 500.2500, L100.0100 ####[facility] [address] [place], [address] EST GFR - AA 113 mL/min Normal >60 [facility] Comment on above: Result Comment: Afri can [facility] GFR Calc Performed By: #### L 500.2500, L100.0100 ####[facility] [address] [place], [address] GAP 8 Normal 5-15 [facility] Comment on above: Performed By: #### L 500.2500, L100.0100 ####[facility] [address] [place], [address] GFR/1.73 sq M.predicted among non-blacks MDRD (S/P/Bld) [Vol rate/Area] 94 mL/min/{1.73_m2} Normal >60 [facility] Comment on above: Result Comment: Non- GFR Calc Performed By: #### L 500.2500, L100.0100 ####[facility] [address] [place], [address] Glucose [Mass/Vol] 101 mg/dL Normal 74-106 [facility] Comment on above: Result Comment: Fast ing Glucose result from 100 to 125 mg/dLsuggests IMPAIRED HOMEOSTASIS per A.D.A. criteria. Performed By: #### L 500.2500, L100.0100 ####[facility] [address] [place], [address] Potassium [Moles/Vol] 3.7 mmol/L Normal 3.5-5.1 [facility] Comment on above: Performed By: #### L 500.2500, L100.0100 ####[facility] [address] [place], [address] Sodium [Moles/Vol] 141 mmol/L Normal 136-145 [facility] Comment on above: Performed By: #### L 500.2500, L100.0100 ####[facility] [address] [place], [address] Urea nitrogen [Mass/Vol] 13 mg/dL Normal 7-18 [facility] Comment on above: Performed By: #### L 500.2500, L100.0100 ####[facility] [address] [place], [address] CBC W/Diff, Automatedon 02-0 7-2024 Absolute Lymph 2.03 X10 3/uL Normal 0.83-4.51 [facility] Comment on above: Performed By: #### L 500.2500, L100.0100 ####[facility] [address] [place], [address] Absolute Neut 5.5 X10 3/uL Normal 2.0-7.7 [facility] Comment on above: Performed By: #### L 500.2500, L100.0100 ####[facility] [address] [place], [address] Basophils/100 WBC (Bld) 1.3 % High 0-1 [facility] Comment on above: Performed By: #### L 500.2500, L100.0100 ####[facility] [address] [place], [address] Eosinophils/100 WBC (Bld) 3.7 % Normal 0-5 [facility] Comment on above: Performed By: #### L 500.2500, L100.0100 ####[facility] [address] [place], [address] Erythrocyte distribution width (RBC) [Ratio] 14.6 % Normal 11.6-14.6 [facility] Comment on above: Performed By: #### L 500.2500, L100.0100 ####[facility] [address] [place], [address] Hematocrit (Bld) [Volume fraction] 45.9 % Normal 37-47 [facility] Comment on above: Performed By: #### L 500.2500, L100.0100 ####[facility] [address] [place], [address] Hemoglobin (Bld) [Mass/Vol] 14.4 g/dL Normal 12.0-15.0 [facility] Comment on above: Performed By: #### L 500.2500, L100.0100 ####[facility] [address] [place], [address] IG% 0.400 Normal 0.0-0.9 [facility] Comment on above: Result Comment: IG% - Immature Granulocytes (promyelocytes, myelocytes andmetamyelocytes) > 1% indicates that a LEFT SHIFT is Present. Performed By: #### L 500.2500, L100.0100 ####[facility] [address] [place], [address] Lymphocytes/100 WBC (Bld) 22.8 % Normal 19-41 [facility] Comment on above: Performed By: #### L 500.2500, L100.0100 ####[facility] [address] [place], [address] MCH (RBC) [Entitic mass] 27.4 pg Normal 27.0-32.0 [facility] Comment on above: Performed By: #### L 500.2500, L100.0100 ####[facility] [address] [place], [address] MCHC (RBC) [Mass/Vol] 31.4 g/dL Low 32-36 [facility] Comment on above: Performed By: #### L 500.2500, L100.0100 ####[facility] [address] [place], [address] MCV (RBC) [Entitic vol] 87.4 fL Normal 81-99 [facility] Comment on above: Performed By: #### L 500.2500, L100.0100 ####[facility] [address] [place], [address] Monocytes/100 WBC (Bld) 9.7 % Normal 0-10 [facility] Comment on above: Performed By: #### L 500.2500, L100.0100 ####[facility] [address] [place], [address] Neutrophils/100 WBC (Bld) 62.1 % Normal 47-70 [facility] Comment on above: Performed By: #### L 500.2500, L100.0100 ####[facility] [address] [place], [address] Nucleated RBC (Bld) [#/Vol] 0 10*3/uL Normal 0-5 [facility] Comment on above: Performed By: #### L 500.2500, L100.0100 ####[facility] [address] [place], [address] Platelet mean volume (Bld) [Entitic vol] 9.6 fL Normal 6.2-12.0 [facility] Comment on above: Performed By: #### L 500.2500, L100.0100 ####[facility] [address] [place], [address] Platelets (Bld) [#/Vol] 369 10*3/uL Normal 150-450 [facility] Comment on above: Performed By: #### L 500.2500, L100.0100 ####[facility] [address] [place], [address] RBC (Bld) [#/Vol] 5.25 10*6/uL Normal 4.2-5.4 [facility] Comment on above: Performed By: #### L 500.2500, L100.0100 ####[facility] [address] [place], [address] RDW SD 46.5 fl High 35.1-43.9 [facility] Comment on above: Performed By: #### L 500.2500, L100.0100 ####[facility] [address] [place], [address] WBC (Bld) [#/Vol] 8.9 10*3/uL Normal 4.4-11.0 [facility] Comment on above: Performed By: #### L 500.2500, L100.0100 ####[facility] [address] [place], [address] Chest 1 View (Portable)on Chest 1 View (Portable) Normal [facility] Emergency Department Summary on 08-29-2024 Emergency Department Summary Normal [facility] H AND P Exam - [place] 08-29-2024 H&P Exam - Hospitalist Normal [facility] L501.4020on 08-29-2024 TROPONIN-I HS 25 pg/mL Normal 3.0-54.0 [facility] Comment on above: Result Comment: Plea se Note: New Test Units and Gender Specific Reference Ranges. For more information see Policy Stat Procedure [place] High Sensitivity Troponin (TNIH) and attachments. Performed By: #### L 501.4020 ####[facility] [address] [place], [address] L501.5425on 08-29-2024 TROPONIN-I HS 24 pg/mL Normal 3.0-54.0 [facility] Comment on above: Order Comment: 1Y Result Comment: Plea se Note: New Test Units and Gender Specific Reference Ranges. For more information see Policy Stat Procedure [place] High Sensitivity Troponin (TNIH) and attachments. Performed By: #### L 501.5425 ####[facility] [address] [place], [place], [address] Troponin IOrdered By: Violeta Rodríguez on 08-29-2024 Troponin I 25 pg/mL 3.0-54.0 [facility] Vitamin D,25 Hydroxyon 08-29 Vitamin D 25-OH 38.0 ng/mL Normal [facility] Comment on above: Result Comment: Haeligh min D 25(OH) Status Range Deficiency <20 ng/mL (50nmol/L) Insufficiency 20 - 30 ng/mL (50 - 75 nmol/L) Sufficiency 30 - 100 ng/mL (75 - 250 nmol/L) Toxicity >100 ng/mL (>250 nmol/L) Performed By: #### L 506.1000 ####[facility] [address] [place], [place], [address] 12 Lead EKGon 08-28-2024 12 Lead EKG Normal [facility] Absolute neutrophil countOrd ered By: ED PROVIDER on 08-28-2024 Absolute neutrophil count 5.7 X10^3/uL 2.0-7.7 [facility] Basic Metabolic Profile (BMP )on 08-28-2024 BUN/CRE 24.4 RATIO High 10-20 [facility] Comment on above: Performed By: #### L 501.5425, L500.2500, L100.0100 ####[facility] [address] [place], [address] CA,Total 11.8 mg/dL High 8.5-10.1 [facility] Comment on above: Performed By: #### L 501.5425, L500.2500, L100.0100 ####[facility] [address] [place], [address] Chloride [Moles/Vol] 104 mmol/L Normal 98-107 [facility] Comment on above: Performed By: #### L 501.5425, L500.2500, L100.0100 ####[facility] [address] [place], [address] CO2 [Moles/Vol] 28.0 mmol/L Normal 21.0-32.0 [facility] Comment on above: Performed By: #### L 501.5425, L500.2500, L100.0100 ####[facility] [address] [place], [address] Creatinine [Mass/Vol] 0.66 mg/dL Normal 0.55-1.02 [facility] Comment on above: Result Comment: The validity of the calculated GFR GFRAA in patients over70 years has not been determined. Clinical correlation isessential. Performed By: #### L 501.5425, L500.2500, L100.0100 ####[facility] [address] [place], [address] ECRCL 49.04 ml/min Normal [facility] Comment on above: Performed By: #### L 501.5425, L500.2500, L100.0100 ####[facility] [address] [place], [address] EST GFR - AA 111 mL/min Normal >60 [facility] Comment on above: Result Comment: Afri can [facility] [place] GFR Calc Performed By: #### L 501.5425, L500.2500, L100.0100 ####[facility] [address] [place], [address] GAP 8 Normal 5-15 [facility] Comment on above: Performed By: #### L 501.5425, L500.2500, L100.0100 ####[facility] [address] [place], [address] GFR/1.73 sq M.predicted among non-blacks MDRD (S/P/Bld) [Vol rate/Area] 92 mL/min/{1.73_m2} Normal >60 [facility] Comment on above: Result Comment: Non- GFR Calc Performed By: #### L 501.5425, L500.2500, L100.0100 ####[facility] [address] [place], [address] Glucose [Mass/Vol] 105 mg/dL Normal 74-106 [facility] Comment on above: Result Comment: Fast ing Glucose result from 100 to 125 mg/dLsuggests IMPAIRED HOMEOSTASIS per A.D.A. criteria. Performed By: #### L 501.5425, L500.2500, L100.0100 ####[facility] [address] [place], [address] Potassium [Moles/Vol] 3.5 mmol/L Normal 3.5-5.1 [facility] Comment on above: Performed By: #### L 501.5425, L500.2500, L100.0100 ####[facility] [address] [place], [address] Sodium [Moles/Vol] 140 mmol/L Normal 136-145 [facility] Comment on above: Performed By: #### L 501.5425, L500.2500, L100.0100 ####[facility] [address] [place], [address] Urea nitrogen [Mass/Vol] 16 mg/dL Normal 7-18 [facility] Comment on above: Performed By: #### L 501.5425, L500.2500, L100.0100 ####[facility] [address] [place], [address] Basophil percentageOrdered B y: ED PROVIDER on 08-28-2024 Basophil percentage 1.3 % High 0-1 [facility] Blood urea nitrogen (BUN)/cr eatinine ratioOrdered By: Violeta Rodríguez on 08-28-2024 Blood urea nitrogen (BUN)/creatinine ratio 24.4 RATIO High 10-20 [facility] CBC W/Diff, Automatedon 02-0 Absolute Lymph 1.81 X10 3/uL Normal 0.83-4.51 [facility] Comment on above: Performed By: #### L 501.5425, L500.2500, L100.0100 ####[facility] [address] [place], [address] Absolute Neut 5.7 X10 3/uL Normal 2.0-7.7 [facility] Comment on above: Performed By: #### L 501.5425, L500.2500, L100.0100 ####[facility] [address] [place], [address] Basophils/100 WBC (Bld) 1.3 % High 0-1 [facility] Comment on above: Performed By: #### L 501.5425, L500.2500, L100.0100 ####[facility] [address] [place], [address] Eosinophils/100 WBC (Bld) 3.8 % Normal 0-5 [facility] Comment on above: Performed By: #### L 501.5425, L500.2500, L100.0100 ####[facility] [address] [place], [address] Erythrocyte distribution width (RBC) [Ratio] 14.6 % Normal 11.6-14.6 [facility] Comment on above: Performed By: #### L 501.5425, L500.2500, L100.0100 ####[facility] [address] [place], [address] Hematocrit (Bld) [Volume fraction] 44.9 % Normal 37-47 [facility] Comment on above: Performed By: #### L 501.5425, L500.2500, L100.0100 ####[facility] [address] [place], [address] Hemoglobin (Bld) [Mass/Vol] 14.5 g/dL Normal 12.0-15.0 [facility] Comment on above: Performed By: #### L 501.5425, L500.2500, L100.0100 ####[facility] [address] [place], [address] IG% 0.700 Normal 0.0-0.9 [facility] Comment on above: Result Comment: IG% - Immature Granulocytes (promyelocytes, myelocytes andmetamyelocytes) > 1% indicates that a LEFT SHIFT is Present. Performed By: #### L 501.5425, L500.2500, L100.0100 ####[facility] [address] [place], [address] Lymphocytes/100 WBC (Bld) 20.0 % Normal 19-41 [facility] Comment on above: Performed By: #### L 501.5425, L500.2500, L100.0100 ####[facility] [address] [place], [address] MCH (RBC) [Entitic mass] 28.0 pg Normal 27.0-32.0 [facility] Comment on above: Performed By: #### L 501.5425, L500.2500, L100.0100 ####[facility] [address] [place], [address] MCHC (RBC) [Mass/Vol] 32.3 g/dL Normal 32-36 [facility] Comment on above: Performed By: #### L 501.5425, L500.2500, L100.0100 ####[facility] [address] [place], [address] MCV (RBC) [Entitic vol] 86.8 fL Normal 81-99 [facility] Comment on above: Performed By: #### L 501.5425, L500.2500, L100.0100 ####[facility] [address] [place], [address] Monocytes/100 WBC (Bld) 10.8 % High 0-10 [facility] Comment on above: Performed By: #### L 501.5425, L500.2500, L100.0100 ####[facility] [address] [place], [address] Neutrophils/100 WBC (Bld) 63.4 % Normal 47-70 [facility] Comment on above: Performed By: #### L 501.5425, L500.2500, L100.0100 ####[facility] [address] [place], [address] Nucleated RBC (Bld) [#/Vol] 0 10*3/uL Normal 0-5 [facility] Comment on above: Performed By: #### L 501.5425, L500.2500, L100.0100 ####[facility] [address] [place], [address] Platelet mean volume (Bld) [Entitic vol] 10.0 fL Normal 6.2-12.0 [facility] Comment on above: Performed By: #### L 501.5425, L500.2500, L100.0100 ####[facility] [address] [place], [address] Platelets (Bld) [#/Vol] 369 10*3/uL Normal 150-450 [facility] Comment on above: Performed By: #### L 501.5425, L500.2500, L100.0100 ####[facility] [address] [place], [address] RBC (Bld) [#/Vol] 5.17 10*6/uL Normal 4.2-5.4 [facility] Comment on above: Performed By: #### L 501.5425, L500.2500, L100.0100 ####[facility] [address] [place], [address] RDW SD 46.1 fl High 35.1-43.9 [facility] Comment on above: Performed By: #### L 501.5425, L500.2500, L100.0100 ####[facility] [address] [place], [address] WBC (Bld) [#/Vol] 9.0 10*3/uL Normal 4.4-11.0 [facility] Comment on above: Performed By: #### L 501.5425, L500.2500, L100.0100 ####[facility] [address] [place], [address] CTA Chest W/WO Contraston CTA Chest W/WO Contrast Normal [facility] Calcium [Mass/Vol]Ordered By : Violeta Rodríguez on 08-28-2024 Serum or plasma calcium measurement (mass/volume) 11.8 mg/dL High 8.5-10.1 [facility] Carbon dioxide measurementOr dered By: Violeta Rodríguez on 08-28-2024 Carbon dioxide measurement 28.0 mmol/L 21.0-32.0 [facility] Chest 1 View (Portable)on Chest 1 View (Portable) Normal [facility] Chloride measurementOrdered By: Violeta Rodríguez on 08-28-2024 Chloride measurement 104 mmol/L 98-107 [facility] Creatinine [Mass/Vol]Ordered By: Violeta Rodríguez on 08-28-2024 Serum or plasma creatinine measurement (mass/volume) 0.66 mg/dL 0.55-1.02 [facility] D-Dimer Quantitative (DVT/PE )on 08-28-2024 D-DIMER QUANT 1.65 FEU/ug/m Invalid Interpretation Code 0.27-0.49 [facility] Comment on above: Result Comment: D-Di miguel ELEVATED (>0.49): Additional studies and clinicalassessments are indicated to conclude diagnosis of:Deep Vein Thrombosis (DVT) or Pulmonary Embolism (PE)CRITICAL VALUE CALLED TO KMBWRXILTLYBVVT51/06/25 124Rajesh Zepeda.RESULTS READ BACK BY SAME. Performed By: #### L 300.8000 ####[facility] [address] [place], [address] D-dimer measurement for deep venous thrombosisOrdered By: Violeta Rodríguez on 08-28-2024 D-dimer measurement for deep venous thrombosis 1.65 FEU/ug/m High 0.27-0.49 [facility] Emergency Department Summary on 08-28-2024 Emergency Department Summary Normal [facility] Eosinophil percentageOrdered By: ED PROVIDER on 08-28-2024 Eosinophil percentage 3.8 % 0-5 [facility] Erythrocyte distribution wid th (RBC) [Ratio]Ordered By: ED PROVIDER on 08-28-2024 Erythrocyte distribution width ratio 14.6 % 11.6-14.6 [facility] Erythrocyte distribution width standard deviation 46.1 fl High 35.1-43.9 [facility] Estimated glomerular filtrat ion rate (GFR) AmericanOrdered By: Violeta Rodríguez on 08-28-2024 Estimated glomerular filtration rate (GFR) 111 mL/min >60 [facility] Estimation of creatinine hernando aranceOrdered By: Violeta Rodríguez on 08-28-2024 Estimation of creatinine clearance 49.04 ml/min [facility] Glomerular filtration rate ( GFR) estimationOrdered By: Violetajuana Rodríguez on 08-28-2024 Glomerular filtration rate (GFR) estimation 92 mL/min >60 [facility] Glucose measurementOrdered B y: Violeta Rodríguez on 08-28-2024 Glucose measurement 105 mg/dL 74-106 [facility] Hematocrit Auto (Bld) [Volum e fraction]Ordered By: ED PROVIDER on 08-28-2024 Automated blood hematocrit (percentage) 44.9 % 37-47 [facility] Hemoglobin measurementOrdere d By: ED PROVIDER on 08-28-2024 Hemoglobin measurement 14.5 g/dL 12.0-15.[address] [facility] Immature granulocytes/100 WB C Auto (Bld)Ordered By: ED PROVIDER on 08-28-2024 Automated immature granulocyte percentage 0.700 % 0.0-0.9 [facility] L501.4020on 08-28-2024 TROPONIN-I HS 18 pg/mL Normal 3.0-54.0 [facility] Comment on above: Result Comment: Plea se Note: New Test Units and Gender Specific Reference Ranges. For more information see Policy Stat Procedure [place] High Sensitivity Troponin (TNIH) and attachments. Performed By: #### L 501.4020 ####[facility] [address] [place], [address] L501.5425on 08-28-2024 TROPONIN-I HS 19 pg/mL Normal 3.0-54.0 [facility] Comment on above: Order Comment: 1Y Result Comment: Plea se Note: New Test Units and Gender Specific Reference Ranges. For more information see Policy Stat Procedure [place] High Sensitivity Troponin (TNIH) and attachments. Performed By: #### L 501.5425, L500.2500, L100.0100 ####[facility] [address] [place], [address] Lymphocytes Auto (Unsp spec) [#/Vol]Ordered By: ED PROVIDER on 08-28-2024 Absolute lymphocyte count 1.81 X10^3/uL 0.83-4.51 [facility] Lymphocytes/100 WBC Auto (Un sp spec)Ordered By: ED PROVIDER on 08-28-2024 Automated lymphocyte count as percentage of total leukocytes 20.0 % 19-41 [facility] M100.678on 08-28-2024 M100.678 Pending SARS-CoV-2 (COVID 19) Negative INFLUENZA A Negative INFLUENZA B Negative RSV PCR Negative Normal [facility] Comment on above: Performed By: #### M 100.558 ####[facility] [address] [place], [address] MCV (RBC) [Entitic vol]Order ed By: ED PROVIDER on 08-28-2024 MCV (mean corpuscular volume) determination 86.8 fL 81-99 [facility] Mean corpuscular hemoglobin (MCH) determinationOrdered By: ED PROVIDER on 08-28-2024 Mean corpuscular hemoglobin (MCH) determination 28.0 pg 27.0-32.0 [facility] Mean corpuscular hemoglobin concentration (MCHC) determinationOrdered By: ED PROVIDER on 08-28-2024 Mean corpuscular hemoglobin concentration (MCHC) determination 32.3 g/dL 32-36 [facility] Mean platelet volume determi nationOrdered By: ED PROVIDER on 08-28-2024 Mean platelet volume determination 10.0 fl 6.2-12.0 [facility] Monocyte percentageOrdered B y: ED PROVIDER on 08-28-2024 Monocyte percentage 10.8 % High 0-10 [facility] Neutrophil percentageOrdered By: ED PROVIDER on 08-28-2024 Neutrophil percentage 63.4 % 47-70 [facility] Nucleated red blood cell per centageOrdered By: ED PROVIDER on 08-28-2024 Nucleated red blood cell percentage 0 % 0-5 [facility] Platelet countOrdered By: ED PROVIDER on 08-28-2024 Platelet count 369 K/mm3 150-450 [facility] Potassium measurementOrdered By: Violeta Rodríguez on 08-28-2024 Potassium measurement 3.5 mmol/L 3.5-5.1 [facility] RBC Auto (Bld) [#/Vol]Ordere d By: ED PROVIDER on 08-28-2024 Automated blood erythrocyte count 5.17 M/mm3 4.2-5.4 [facility] Serum anion gap measurementO rdered By: Violeta Rodríguez on 08-28-2024 Serum anion gap measurement 8 5-15 [facility] Sodium levelOrdered By: Jose Rodríguez on 08-28-2024 Sodium level 140 mmol/L 136-145 [facility] Troponin IOrdered By: Violeta Rodríguez on 08-28-2024 Troponin I 18 pg/mL 3.0-54.0 [facility] Urea nitrogen [Mass/Vol]Orde red By: Violeta Rodríguez on 08-28-2024 Serum or plasma urea nitrogen measurement (mass/volume) 16 mg/dL - [facility] White blood cell (WBC) count Ordered By: ED PROVIDER on 08-28-2024 White blood cell (WBC) count 9.0 K/mm3 4.4-11.0 [facility] Basic Metabolic Profile (BMP )on 08-21-2024 BUN Normal - [facility] Comment on above: Result Comment: Canc elled via OM: Order cancelled - Patient discharged Performed By: #### L 500.2500, L100.0100 ####[facility] [address] [place], [address] BUN/CRE Normal 10-20 [facility] Comment on above: Result Comment: Canc elled via OM: Order cancelled - Patient discharged Performed By: #### L 500.2500, L100.0100 ####[facility] [address] [place], [address] CA,Total Normal 8.5-10.1 [facility] Comment on above: Result Comment: Canc elled via OM: Order cancelled - Patient discharged Performed By: #### L 500.2500, L100.0100 ####[facility] [address] [place], [address] CL Normal 98-107 [facility] Comment on above: Result Comment: Canc elled via OM: Order cancelled - Patient discharged Performed By: #### L 500.2500, L100.0100 ####[facility] [address] [place], [address] CO2 Normal 21.0-32.0 [facility] Comment on above: Result Comment: Canc elled via OM: Order cancelled - Patient discharged Performed By: #### L 500.2500, L100.0100 ####[facility] [address] [place], [address] CREAT,SERUM Normal 0.55-1.02 [facility] Comment on above: Result Comment: Canc elled via OM: Order cancelled - Patient discharged Performed By: #### L 500.2500, L100.0100 ####[facility] [address] [place], [address] EST GFR Normal >60 [facility] Comment on above: Result Comment: Canc elled via OM: Order cancelled - Patient discharged Performed By: #### L 500.2500, L100.0100 ####[facility] [address] [place], [address] EST GFR - AA Normal >60 [facility] Comment on above: Result Comment: Canc elled via OM: Order cancelled - Patient discharged Performed By: #### L 500.2500, L100.0100 ####[facility] [address] [place], [address] GAP Normal 5-15 [facility] Comment on above: Result Comment: Canc elled via OM: Order cancelled - Patient discharged Performed By: #### L 500.2500, L100.0100 ####[facility] [address] [place], [address] GLU Normal 74-106 [facility] Comment on above: Result Comment: Canc elled via OM: Order cancelled - Patient discharged Performed By: #### L 500.2500, L100.0100 ####[facility] [address] [place], [address] Potassium Normal 3.5-5.1 [facility] Comment on above: Result Comment: Canc elled via OM: Order cancelled - Patient discharged Performed By: #### L 500.2500, L100.0100 ####[facility] [address] [place], [address] Basic Metabolic Profile (BMP) Normal 136-145 [facility] Comment on above: Result Comment: Canc elled via OM: Order cancelled - Patient discharged Performed By: #### L 500.2500, L100.0100 ####[facility] [address] [place], [address] CBC W/Diff, Automatedon -3 0-2024 Absolute Neut Normal 2.0-7.7 [facility] Comment on above: Result Comment: Canc elled via OM: Order cancelled - Patient discharged Performed By: #### L 500.2500, L100.0100 ####[facility] [address] [place], [address] HCT Normal 37-47 [facility] Comment on above: Result Comment: Canc elled via OM: Order cancelled - Patient discharged Performed By: #### L 500.2500, L100.0100 ####[facility] [address] [place], [address] HGB Normal 12.0-15.0 [facility] Comment on above: Result Comment: Canc elled via OM: Order cancelled - Patient discharged Performed By: #### L 500.2500, L100.0100 ####[facility] [address] [place], [address] MCH Normal 27.0-32.0 [facility] Comment on above: Result Comment: Canc elled via OM: Order cancelled - Patient discharged Performed By: #### L 500.2500, L100.0100 ####[facility] [address] [place], [address] MCHC Normal 32-36 [facility] Comment on above: Result Comment: Canc elled via OM: Order cancelled - Patient discharged Performed By: #### L 500.2500, L100.0100 ####[facility] [address] [place], [address] MCV Normal 81-99 [facility] Comment on above: Result Comment: Canc elled via OM: Order cancelled - Patient discharged Performed By: #### L 500.2500, L100.0100 ####[facility] [address] [place], [address] NEUT% Normal 47-70 [facility] Comment on above: Result Comment: Canc elled via OM: Order cancelled - Patient discharged Performed By: #### L 500.2500, L100.0100 ####[facility] [address] [place], [address] PLT Normal 150-450 [facility] Comment on above: Result Comment: Canc elled via OM: Order cancelled - Patient discharged Performed By: #### L 500.2500, L100.0100 ####[facility] [address] [place], [address] RBC Normal 4.2-5.4 [facility] Comment on above: Result Comment: Canc elled via OM: Order cancelled - Patient discharged Performed By: #### L 500.2500, L100.0100 ####[facility] [address] [place], [address] RDW CV Normal 11.6-14.6 [facility] Comment on above: Result Comment: Canc elled via OM: Order cancelled - Patient discharged Performed By: #### L 500.2500, L100.0100 ####[facility] [address] [place], [address] RDW SD Normal 35.1-43.9 [facility] Comment on above: Result Comment: Canc elled via OM: Order cancelled - Patient discharged Performed By: #### L 500.2500, L100.0100 ####[facility] [address] [place], [address] WBC Normal 4.4-11.0 [facility] Comment on above: Result Comment: Canc elled via OM: Order cancelled - Patient discharged Performed By: #### L 500.2500, L100.0100 ####[facility] [address] [place], [address] Basic Metabolic Profile (BMP )on 08-20-2024 BUN Normal 7-18 [facility] Comment on above: Result Comment: Canc elled via OM: Order cancelled - Patient discharged Performed By: #### L 100.0100, L500.2500 ####[facility] [address] [place], [address] BUN/CRE Normal 10-20 [facility] Comment on above: Result Comment: Canc elled via OM: Order cancelled - Patient discharged Performed By: #### L 100.0100, L500.2500 ####[facility] [address] [place], [address] CA,Total Normal 8.5-10.1 [facility] Comment on above: Result Comment: Canc elled via OM: Order cancelled - Patient discharged Performed By: #### L 100.0100, L500.2500 ####[facility] [address] [place], [address] CL Normal 98-107 [facility] Comment on above: Result Comment: Canc elled via OM: Order cancelled - Patient discharged Performed By: #### L 100.0100, L500.2500 ####[facility] [address] [place], [address] CO2 Normal 21.0-32.0 [facility] Comment on above: Result Comment: Canc elled via OM: Order cancelled - Patient discharged Performed By: #### L 100.0100, L500.2500 ####[facility] [address] [place], [address] CREAT,SERUM Normal 0.55-1.02 [facility] Comment on above: Result Comment: Canc elled via OM: Order cancelled - Patient discharged Performed By: #### L 100.0100, L500.2500 ####[facility] [address] [place], [address] EST GFR Normal >60 [facility] Comment on above: Result Comment: Canc elled via OM: Order cancelled - Patient discharged Performed By: #### L 100.0100, L500.2500 ####[facility] [address] [place], [address] EST GFR - AA Normal >60 [facility] Comment on above: Result Comment: Canc elled via OM: Order cancelled - Patient discharged Performed By: #### L 100.0100, L500.2500 ####[facility] [address] [place], [address] GAP Normal 5-15 [facility] Comment on above: Result Comment: Canc elled via OM: Order cancelled - Patient discharged Performed By: #### L 100.0100, L500.2500 ####[facility] [address] [place], [address] GLU Normal 74-106 [facility] Comment on above: Result Comment: Canc elled via OM: Order cancelled - Patient discharged Performed By: #### L 100.0100, L500.2500 ####[facility] [address] [place], [address] Potassium Normal 3.5-5.1 [facility] Comment on above: Result Comment: Canc elled via OM: Order cancelled - Patient discharged Performed By: #### L 100.0100, L500.2500 ####[facility] [address] [place], [address] Basic Metabolic Profile (BMP) Normal 136-145 [facility] Comment on above: Result Comment: Canc elled via OM: Order cancelled - Patient discharged Performed By: #### L 100.0100, L500.2500 ####[facility] [address] [place], [address] CBC W/Diff, Automatedon 01-2 Absolute Neut Normal 2.0-7.7 [facility] Comment on above: Result Comment: Canc elled via OM: Order cancelled - Patient discharged Performed By: #### L 100.0100, L500.2500 ####[facility] [address] [place], [address] HCT Normal 37-47 [facility] Comment on above: Result Comment: Canc elled via OM: Order cancelled - Patient discharged Performed By: #### L 100.0100, L500.2500 ####[facility] [address] [place], [address] HGB Normal 12.0-15.0 [facility] Comment on above: Result Comment: Canc elled via OM: Order cancelled - Patient discharged Performed By: #### L 100.0100, L500.2500 ####[facility] [address] [place], [address] MCH Normal 27.0-32.0 [facility] Comment on above: Result Comment: Canc elled via OM: Order cancelled - Patient discharged Performed By: #### L 100.0100, L500.2500 ####[facility] [address] [place], [address] MCHC Normal 32-36 [facility] Comment on above: Result Comment: Canc elled via OM: Order cancelled - Patient discharged Performed By: #### L 100.0100, L500.2500 ####[facility] [address] [place], [address] MCV Normal 81-99 [facility] Comment on above: Result Comment: Canc elled via OM: Order cancelled - Patient discharged Performed By: #### L 100.0100, L500.2500 ####[facility] [address] [place], [address] NEUT% Normal 47-70 [facility] Comment on above: Result Comment: Canc elled via OM: Order cancelled - Patient discharged Performed By: #### L 100.0100, L500.2500 ####[facility] [address] [place], [address] PLT Normal 150-450 [facility] Comment on above: Result Comment: Canc elled via OM: Order cancelled - Patient discharged Performed By: #### L 100.0100, L500.2500 ####[facility] [address] [place], [address] RBC Normal 4.2-5.4 [facility] Comment on above: Result Comment: Canc elled via OM: Order cancelled - Patient discharged Performed By: #### L 100.0100, L500.2500 ####[facility] [address] [place], [address] RDW CV Normal 11.6-14.6 [facility] Comment on above: Result Comment: Canc elled via OM: Order cancelled - Patient discharged Performed By: #### L 100.0100, L500.2500 ####[facility] [address] [place], [address] RDW SD Normal 35.1-43.9 [facility] Comment on above: Result Comment: Canc elled via OM: Order cancelled - Patient discharged Performed By: #### L 100.0100, L500.2500 ####[facility] [address] [place], [address] WBC Normal 4.4-11.0 [facility] Comment on above: Result Comment: Canc elled via OM: Order cancelled - Patient discharged Performed By: #### L 100.0100, L500.2500 ####[facility] [address] [place], [address] Basic Metabolic Profile (BMP )on 08-19-2024 BUN Normal 7-18 [facility] Comment on above: Result Comment: Canc elled via OM: Order cancelled - Patient discharged Performed By: #### L 500.2500, L100.0100 ####[facility] [address] [place], [address] BUN/CRE Normal 10-20 [facility] Comment on above: Result Comment: Canc elled via OM: Order cancelled - Patient discharged Performed By: #### L 500.2500, L100.0100 ####[facility] [address] [place], [address] CA,Total Normal 8.5-10.1 [facility] Comment on above: Result Comment: Canc elled via OM: Order cancelled - Patient discharged Performed By: #### L 500.2500, L100.0100 ####[facility] [address] [place], [address] CL Normal 98-107 [facility] Comment on above: Result Comment: Canc elled via OM: Order cancelled - Patient discharged Performed By: #### L 500.2500, L100.0100 ####[facility] [address] [place], [address] CO2 Normal 21.0-32.0 [facility] Comment on above: Result Comment: Canc elled via OM: Order cancelled - Patient discharged Performed By: #### L 500.2500, L100.0100 ####[facility] [address] [place], [address] CREAT,SERUM Normal 0.55-1.02 [facility] Comment on above: Result Comment: Canc elled via OM: Order cancelled - Patient discharged Performed By: #### L 500.2500, L100.0100 ####[facility] [address] [place], [address] EST GFR Normal >60 [facility] Comment on above: Result Comment: Canc elled via OM: Order cancelled - Patient discharged Performed By: #### L 500.2500, L100.0100 ####[facility] [address] [place], [address] EST GFR - AA Normal >60 [facility] Comment on above: Result Comment: Canc elled via OM: Order cancelled - Patient discharged Performed By: #### L 500.2500, L100.0100 ####[facility] [address] [place], [address] GAP Normal 5-15 [facility] Comment on above: Result Comment: Canc elled via OM: Order cancelled - Patient discharged Performed By: #### L 500.2500, L100.0100 ####[facility] [address] [place], [address] GLU Normal 74-106 [facility] Comment on above: Result Comment: Canc elled via OM: Order cancelled - Patient discharged Performed By: #### L 500.2500, L100.0100 ####[facility] [address] [place], [address] Potassium Normal 3.5-5.1 [facility] Comment on above: Result Comment: Canc elled via OM: Order cancelled - Patient discharged Performed By: #### L 500.2500, L100.0100 ####[facility] [address] [place], [address] Basic Metabolic Profile (BMP) Normal 136-145 [facility] Comment on above: Result Comment: Canc elled via OM: Order cancelled - Patient discharged Performed By: #### L 500.2500, L100.0100 ####[facility] [address] [place], [address] CBC W/Diff, Automatedon 07-24 Absolute Neut Normal 2.0-7.7 [facility] Comment on above: Result Comment: Canc elled via OM: Order cancelled - Patient discharged Performed By: #### L 500.2500, L100.0100 ####[facility] [address] [place], [address] HCT Normal 37-47 [facility] Comment on above: Result Comment: Canc elled via OM: Order cancelled - Patient discharged Performed By: #### L 500.2500, L100.0100 ####[facility] [address] [place], [address] HGB Normal 12.0-15.0 [facility] Comment on above: Result Comment: Canc elled via OM: Order cancelled - Patient discharged Performed By: #### L 500.2500, L100.0100 ####[facility] [address] [place], [address] MCH Normal 27.0-32.0 [facility] Comment on above: Result Comment: Canc elled via OM: Order cancelled - Patient discharged Performed By: #### L 500.2500, L100.0100 ####[facility] [address] [place], [address] MCHC Normal 32-36 [facility] Comment on above: Result Comment: Canc elled via OM: Order cancelled - Patient discharged Performed By: #### L 500.2500, L100.0100 ####[facility] [address] [place], [address] MCV Normal 81-99 [facility] Comment on above: Result Comment: Canc elled via OM: Order cancelled - Patient discharged Performed By: #### L 500.2500, L100.0100 ####[facility] [address] [place], [address] NEUT% Normal 47-70 [facility] Comment on above: Result Comment: Canc elled via OM: Order cancelled - Patient discharged Performed By: #### L 500.2500, L100.0100 ####[facility] [address] [place], [address] PLT Normal 150-450 [facility] Comment on above: Result Comment: Canc elled via OM: Order cancelled - Patient discharged Performed By: #### L 500.2500, L100.0100 ####[facility] [address] [place], [address] RBC Normal 4.2-5.4 [facility] Comment on above: Result Comment: Canc elled via OM: Order cancelled - Patient discharged Performed By: #### L 500.2500, L100.0100 ####[facility] [address] [place], [address] RDW CV Normal 11.6-14.6 [facility] Comment on above: Result Comment: Canc elled via OM: Order cancelled - Patient discharged Performed By: #### L 500.2500, L100.0100 ####[facility] [address] [place], [address] RDW SD Normal 35.1-43.9 [facility] Comment on above: Result Comment: Canc elled via OM: Order cancelled - Patient discharged Performed By: #### L 500.2500, L100.0100 ####[facility] [address] [place], [address] WBC Normal 4.4-11.0 [facility] Comment on above: Result Comment: Canc elled via OM: Order cancelled - Patient discharged Performed By: #### L 500.2500, L100.0100 ####[facility] [address] [place], [address] Basic Metabolic Profile (BMP )on 08-18-2024 BUN Normal 7-18 [facility] Comment on above: Result Comment: Canc elled via OM: Order cancelled - Patient discharged Performed By: #### L 100.0100, L500.2500 ####[facility] [address] [place], [address] BUN/CRE Normal 10-20 [facility] Comment on above: Result Comment: Canc elled via OM: Order cancelled - Patient discharged Performed By: #### L 100.0100, L500.2500 ####[facility] [address] [place], [address] CA,Total Normal 8.5-10.1 [facility] Comment on above: Result Comment: Canc elled via OM: Order cancelled - Patient discharged Performed By: #### L 100.0100, L500.2500 ####[facility] [address] [place], [address] CL Normal 98-107 [facility] Comment on above: Result Comment: Canc elled via OM: Order cancelled - Patient discharged Performed By: #### L 100.0100, L500.2500 ####[facility] [address] [place], [address] CO2 Normal 21.0-32.0 [facility] Comment on above: Result Comment: Canc elled via OM: Order cancelled - Patient discharged Performed By: #### L 100.0100, L500.2500 ####[facility] [address] [place], [address] CREAT,SERUM Normal 0.55-1.02 [facility] Comment on above: Result Comment: Canc elled via OM: Order cancelled - Patient discharged Performed By: #### L 100.0100, L500.2500 ####[facility] [address] [place], [address] EST GFR Normal >60 [facility] Comment on above: Result Comment: Canc elled via OM: Order cancelled - Patient discharged Performed By: #### L 100.0100, L500.2500 ####[facility] [address] [place], [address] EST GFR - AA Normal >60 [facility] Comment on above: Result Comment: Canc elled via OM: Order cancelled - Patient discharged Performed By: #### L 100.0100, L500.2500 ####[facility] [address] [place], [address] GAP Normal 5-15 [facility] Comment on above: Result Comment: Canc elled via OM: Order cancelled - Patient discharged Performed By: #### L 100.0100, L500.2500 ####[facility] [address] [place], [address] GLU Normal 74-106 [facility] Comment on above: Result Comment: Canc elled via OM: Order cancelled - Patient discharged Performed By: #### L 100.0100, L500.2500 ####[facility] [address] [place], [address] Potassium Normal 3.5-5.1 [facility] Comment on above: Result Comment: Canc elled via OM: Order cancelled - Patient discharged Performed By: #### L 100.0100, L500.2500 ####[facility] [address] [place], [address] Basic Metabolic Profile (BMP) Normal 136-145 [facility] Comment on above: Result Comment: Canc elled via OM: Order cancelled - Patient discharged Performed By: #### L 100.0100, L500.2500 ####[facility] [address] [place], [address] CBC W/Diff, Automatedon 01-2 Absolute Neut Normal 2.0-7.7 [facility] Comment on above: Result Comment: Canc elled via OM: Order cancelled - Patient discharged Performed By: #### L 100.0100, L500.2500 ####[facility] [address] [place], [address] HCT Normal 37-47 [facility] Comment on above: Result Comment: Canc elled via OM: Order cancelled - Patient discharged Performed By: #### L 100.0100, L500.2500 ####[facility] [address] [place], [address] HGB Normal 12.0-15.0 [facility] Comment on above: Result Comment: Canc elled via OM: Order cancelled - Patient discharged Performed By: #### L 100.0100, L500.2500 ####[facility] [address] [place], [address] MCH Normal 27.0-32.0 [facility] Comment on above: Result Comment: Canc elled via OM: Order cancelled - Patient discharged Performed By: #### L 100.0100, L500.2500 ####[facility] [address] [place], [address] MCHC Normal 32-36 [facility] Comment on above: Result Comment: Canc elled via OM: Order cancelled - Patient discharged Performed By: #### L 100.0100, L500.2500 ####[facility] [address] [place], [address] MCV Normal 81-99 [facility] Comment on above: Result Comment: Canc elled via OM: Order cancelled - Patient discharged Performed By: #### L 100.0100, L500.2500 ####[facility] [address] [place], [address] NEUT% Normal 47-70 [facility] Comment on above: Result Comment: Canc elled via OM: Order cancelled - Patient discharged Performed By: #### L 100.0100, L500.2500 ####[facility] [address] [place], [address] PLT Normal 150-450 [facility] Comment on above: Result Comment: Canc elled via OM: Order cancelled - Patient discharged Performed By: #### L 100.0100, L500.2500 ####[facility] [address] [place], [address] RBC Normal 4.2-5.4 [facility] Comment on above: Result Comment: Canc elled via OM: Order cancelled - Patient discharged Performed By: #### L 100.0100, L500.2500 ####[facility] [address] [place], [address] RDW CV Normal 11.6-14.6 [facility] Comment on above: Result Comment: Canc elled via OM: Order cancelled - Patient discharged Performed By: #### L 100.0100, L500.2500 ####[facility] [address] [place], [address] RDW SD Normal 35.1-43.9 [facility] Comment on above: Result Comment: Canc elled via OM: Order cancelled - Patient discharged Performed By: #### L 100.0100, L500.2500 ####[facility] [address] [place], [address] WBC Normal 4.4-11.0 [facility] Comment on above: Result Comment: Canc elled via OM: Order cancelled - Patient discharged Performed By: #### L 100.0100, L500.2500 ####[facility] [address] [place], [address] Culture, Blood (WB)on 2024 CUB Blood cultures x2, from two different sites No growth in 5 days. Normal [facility] Comment on above: Performed By: #### L 503.6005, L501.4020, L500.4050, L300.4310, M200.1000, L100.0100, L300.3900 ####[facility] [address] [place], [address] Basic Metabolic Profile (BMP )on 08-17-2024 BUN Normal 7-18 [facility] Comment on above: Result Comment: Canc elled via OM: Order cancelled - Patient discharged Performed By: #### L 100.0100, L500.2500 ####[facility] [address] [place], [address] BUN/CRE Normal 10-20 [facility] Comment on above: Result Comment: Canc elled via OM: Order cancelled - Patient discharged Performed By: #### L 100.0100, L500.2500 ####[facility] [address] [place], [address] CA,Total Normal 8.5-10.1 [facility] Comment on above: Result Comment: Canc elled via OM: Order cancelled - Patient discharged Performed By: #### L 100.0100, L500.2500 ####[facility] [address] [place], [address] CL Normal 98-107 [facility] Comment on above: Result Comment: Canc elled via OM: Order cancelled - Patient discharged Performed By: #### L 100.0100, L500.2500 ####[facility] [address] [place], [address] CO2 Normal 21.0-32.0 [facility] Comment on above: Result Comment: Canc elled via OM: Order cancelled - Patient discharged Performed By: #### L 100.0100, L500.2500 ####[facility] [address] [place], [address] CREAT,SERUM Normal 0.55-1.02 [facility] Comment on above: Result Comment: Canc elled via OM: Order cancelled - Patient discharged Performed By: #### L 100.0100, L500.2500 ####[facility] [address] [place], [address] EST GFR Normal >60 [facility] Comment on above: Result Comment: Canc elled via OM: Order cancelled - Patient discharged Performed By: #### L 100.0100, L500.2500 ####[facility] [address] [place], [address] EST GFR - AA Normal >60 [facility] Comment on above: Result Comment: Canc elled via OM: Order cancelled - Patient discharged Performed By: #### L 100.0100, L500.2500 ####[facility] [address] [place], [address] GAP Normal 5-15 [facility] Comment on above: Result Comment: Canc elled via OM: Order cancelled - Patient discharged Performed By: #### L 100.0100, L500.2500 ####[facility] [address] [place], [address] GLU Normal 74-106 [facility] Comment on above: Result Comment: Canc elled via OM: Order cancelled - Patient discharged Performed By: #### L 100.0100, L500.2500 ####[facility] [address] [place], [address] Potassium Normal 3.5-5.1 [facility] Comment on above: Result Comment: Canc elled via OM: Order cancelled - Patient discharged Performed By: #### L 100.0100, L500.2500 ####[facility] [address] [place], [address] Basic Metabolic Profile (BMP) Normal 136-145 [facility] Comment on above: Result Comment: Canc elled via OM: Order cancelled - Patient discharged Performed By: #### L 100.0100, L500.2500 ####[facility] [address] [place], [address] CBC W/Diff, Automatedon 01-2 Absolute Neut Normal 2.0-7.7 [facility] Comment on above: Result Comment: Canc elled via OM: Order cancelled - Patient discharged Performed By: #### L 100.0100, L500.2500 ####[facility] [address] [place], [address] HCT Normal 37-47 [facility] Comment on above: Result Comment: Canc elled via OM: Order cancelled - Patient discharged Performed By: #### L 100.0100, L500.2500 ####[facility] [address] [place], [address] HGB Normal 12.0-15.0 [facility] Comment on above: Result Comment: Canc elled via OM: Order cancelled - Patient discharged Performed By: #### L 100.0100, L500.2500 ####[facility] [address] [place], [address] MCH Normal 27.0-32.0 [facility] Comment on above: Result Comment: Canc elled via OM: Order cancelled - Patient discharged Performed By: #### L 100.0100, L500.2500 ####[facility] [address] [place], [address] MCHC Normal 32-36 [facility] Comment on above: Result Comment: Canc elled via OM: Order cancelled - Patient discharged Performed By: #### L 100.0100, L500.2500 ####[facility] [address] [place], [address] MCV Normal 81-99 [facility] Comment on above: Result Comment: Canc elled via OM: Order cancelled - Patient discharged Performed By: #### L 100.0100, L500.2500 ####[facility] [address] [place], [address] NEUT% Normal 47-70 [facility] Comment on above: Result Comment: Canc elled via OM: Order cancelled - Patient discharged Performed By: #### L 100.0100, L500.2500 ####[facility] [address] [place], [address] PLT Normal 150-450 [facility] Comment on above: Result Comment: Canc elled via OM: Order cancelled - Patient discharged Performed By: #### L 100.0100, L500.2500 ####[facility] [address] [place], [address] RBC Normal 4.2-5.4 [facility] Comment on above: Result Comment: Canc elled via OM: Order cancelled - Patient discharged Performed By: #### L 100.0100, L500.2500 ####[facility] [address] [place], [address] RDW CV Normal 11.6-14.6 [facility] Comment on above: Result Comment: Canc elled via OM: Order cancelled - Patient discharged Performed By: #### L 100.0100, L500.2500 ####[facility] [address] [place], [address] RDW SD Normal 35.1-43.9 [facility] Comment on above: Result Comment: Canc elled via OM: Order cancelled - Patient discharged Performed By: #### L 100.0100, L500.2500 ####[facility] [address] [place], [address] WBC Normal 4.4-11.0 [facility] Comment on above: Result Comment: Canc elled via OM: Order cancelled - Patient discharged Performed By: #### L 100.0100, L500.2500 ####[facility] [address] [place], [address] Basic Metabolic Profile (BMP )on 08-16-2024 BUN Normal 7-18 [facility] Comment on above: Result Comment: Canc elled via OM: Order cancelled - Patient discharged Performed By: #### L 500.2500, L100.0100 ####[facility] [address] [place], [address] BUN/CRE Normal 10-20 [facility] Comment on above: Result Comment: Canc elled via OM: Order cancelled - Patient discharged Performed By: #### L 500.2500, L100.0100 ####[facility] [address] [place], [address] CA,Total Normal 8.5-10.1 [facility] Comment on above: Result Comment: Canc elled via OM: Order cancelled - Patient discharged Performed By: #### L 500.2500, L100.0100 ####[facility] [address] [place], [address] CL Normal 98-107 [facility] Comment on above: Result Comment: Canc elled via OM: Order cancelled - Patient discharged Performed By: #### L 500.2500, L100.0100 ####[facility] [address] [place], [address] CO2 Normal 21.0-32.0 [facility] Comment on above: Result Comment: Canc elled via OM: Order cancelled - Patient discharged Performed By: #### L 500.2500, L100.0100 ####[facility] [address] [place], [address] CREAT,SERUM Normal 0.55-1.02 [facility] Comment on above: Result Comment: Canc elled via OM: Order cancelled - Patient discharged Performed By: #### L 500.2500, L100.0100 ####[facility] [address] [place], [address] EST GFR Normal >60 [facility] Comment on above: Result Comment: Canc elled via OM: Order cancelled - Patient discharged Performed By: #### L 500.2500, L100.0100 ####[facility] [address] [place], [address] EST GFR - AA Normal >60 [facility] Comment on above: Result Comment: Canc elled via OM: Order cancelled - Patient discharged Performed By: #### L 500.2500, L100.0100 ####[facility] [address] [place], [address] GAP Normal 5-15 [facility] Comment on above: Result Comment: Canc elled via OM: Order cancelled - Patient discharged Performed By: #### L 500.2500, L100.0100 ####[facility] [address] [place], [address] GLU Normal 74-106 [facility] Comment on above: Result Comment: Canc elled via OM: Order cancelled - Patient discharged Performed By: #### L 500.2500, L100.0100 ####[facility] [address] [place], [address] Potassium Normal 3.5-5.1 [facility] Comment on above: Result Comment: Canc elled via OM: Order cancelled - Patient discharged Performed By: #### L 500.2500, L100.0100 ####[facility] [address] [place], [address] Basic Metabolic Profile (BMP) Normal 136-145 [facility] Comment on above: Result Comment: Canc elled via OM: Order cancelled - Patient discharged Performed By: #### L 500.2500, L100.0100 ####[facility] [address] [place], [address] CBC W/Diff, Automatedon 01-2 Absolute Neut Normal 2.0-7.7 [facility] Comment on above: Result Comment: Canc elled via OM: Order cancelled - Patient discharged Performed By: #### L 500.2500, L100.0100 ####[facility] [address] [place], [address] HCT Normal 37-47 [facility] Comment on above: Result Comment: Canc elled via OM: Order cancelled - Patient discharged Performed By: #### L 500.2500, L100.0100 ####[facility] [address] [place], [address] HGB Normal 12.0-15.0 [facility] Comment on above: Result Comment: Canc elled via OM: Order cancelled - Patient discharged Performed By: #### L 500.2500, L100.0100 ####[facility] [address] [place], [address] MCH Normal 27.0-32.0 [facility] Comment on above: Result Comment: Canc elled via OM: Order cancelled - Patient discharged Performed By: #### L 500.2500, L100.0100 ####[facility] [address] [place], [address] MCHC Normal 32-36 [facility] Comment on above: Result Comment: Canc elled via OM: Order cancelled - Patient discharged Performed By: #### L 500.2500, L100.0100 ####[facility] [address] [place], [address] MCV Normal 81-99 [facility] Comment on above: Result Comment: Canc elled via OM: Order cancelled - Patient discharged Performed By: #### L 500.2500, L100.0100 ####[facility] [address] [place], [address] NEUT% Normal 47-70 [facility] Comment on above: Result Comment: Canc elled via OM: Order cancelled - Patient discharged Performed By: #### L 500.2500, L100.0100 ####[facility] [address] [place], [address] PLT Normal 150-450 [facility] Comment on above: Result Comment: Canc elled via OM: Order cancelled - Patient discharged Performed By: #### L 500.2500, L100.0100 ####[facility] [address] [place], [address] RBC Normal 4.2-5.4 [facility] Comment on above: Result Comment: Canc elled via OM: Order cancelled - Patient discharged Performed By: #### L 500.2500, L100.0100 ####[facility] [address] [place], [address] RDW CV Normal 11.6-14.6 [facility] Comment on above: Result Comment: Canc elled via OM: Order cancelled - Patient discharged Performed By: #### L 500.2500, L100.0100 ####[facility] [address] [place], [address] RDW SD Normal 35.1-43.9 [facility] Comment on above: Result Comment: Canc elled via OM: Order cancelled - Patient discharged Performed By: #### L 500.2500, L100.0100 ####[facility] [address] [place], [address] WBC Normal 4.4-11.0 [facility] Comment on above: Result Comment: Canc elled via OM: Order cancelled - Patient discharged Performed By: #### L 500.2500, L100.0100 ####[facility] [address] [place], [address] Absolute neutrophil countOrd ered By: Alba Jurado on 08-15-2024 Absolute neutrophil count 4.7 X10^3/uL 2.0-7.7 [facility] Basic Metabolic Profile (BMP )on 08-15-2024 BUN/CRE 27.4 RATIO High 10-20 [facility] Comment on above: Performed By: #### L 500.2500, L100.0100 ####[facility] [address] [place], [address] CA,Total 10.0 mg/dL Normal 8.5-10.1 [facility] Comment on above: Performed By: #### L 500.2500, L100.0100 ####[facility] [address] [place], [address] Chloride [Moles/Vol] 110 mmol/L High 98-107 [facility] Comment on above: Performed By: #### L 500.2500, L100.0100 ####[facility] [address] [place], [address] CO2 [Moles/Vol] 24.0 mmol/L Normal 21.0-32.0 [facility] Comment on above: Performed By: #### L 500.2500, L100.0100 ####[facility] [address] [place], [address] Creatinine [Mass/Vol] 0.44 mg/dL Low 0.55-1.02 [facility] Comment on above: Result Comment: The validity of the calculated GFR GFRAA in patients over70 years has not been determined. Clinical correlation isessential. Performed By: #### L 500.2500, L100.0100 ####[facility] [address] [place], [address] ECRCL 50.62 ml/min Normal [facility] Comment on above: Performed By: #### L 500.2500, L100.0100 ####[facility] [address] [place], [address] EST GFR - AA 177 mL/min Normal >60 [facility] Comment on above: Result Comment: Afri can [facility] GFR Calc Performed By: #### L 500.2500, L100.0100 ####[facility] [address] [place], [address] GAP 6 Normal 5-15 [facility] Comment on above: Performed By: #### L 500.2500, L100.0100 ####[facility] [address] [place], [address] GFR/1.73 sq M.predicted among non-blacks MDRD (S/P/Bld) [Vol rate/Area] 146 mL/min/{1.73_m2} Normal >60 [facility] Comment on above: Result Comment: Non- GFR Calc Performed By: #### L 500.2500, L100.0100 ####[facility] [address] [place], [address] Glucose [Mass/Vol] 108 mg/dL High 74-106 [facility] Comment on above: Result Comment: Fast ing Glucose result from 100 to 125 mg/dLsuggests IMPAIRED HOMEOSTASIS per A.D.A. criteria. Performed By: #### L 500.2500, L100.0100 ####[facility] [address] [place], [address] Potassium [Moles/Vol] 3.8 mmol/L Normal 3.5-5.1 [facility] Comment on above: Result Comment: Slig ht Hemolysis, Result may be falsely increased. Performed By: #### L 500.2500, L100.0100 ####[facility] [address] [place], [address] Sodium [Moles/Vol] 140 mmol/L Normal 136-145 [facility] Comment on above: Performed By: #### L 500.2500, L100.0100 ####[facility] [address] [place], [address] Urea nitrogen [Mass/Vol] 12 mg/dL Normal 7-18 [facility] Comment on above: Performed By: #### L 500.2500, L100.0100 ####[facility] [address] [place], [address] Basophil percentageOrdered B y: Alba Jurado on 08-15-2024 Basophil percentage 0.7 % 0-1 [facility] Blood urea nitrogen (BUN)/cr eatinine ratioOrdered By: Alba Jurado on 08-15-2024 Blood urea nitrogen (BUN)/creatinine ratio 27.4 RATIO High 10-20 [facility] CBC W/Diff, Automatedon 07-24 Absolute Lymph 0.95 X10 3/uL Normal 0.83-4.51 [facility] Comment on above: Performed By: #### L 500.2500, L100.0100 ####[facility] [address] [place], [address] Absolute Neut 4.7 X10 3/uL Normal 2.0-7.7 [facility] Comment on above: Performed By: #### L 500.2500, L100.0100 ####[facility] [address] [place], [address] Basophils/100 WBC (Bld) 0.7 % Normal 0-1 [facility] Comment on above: Performed By: #### L 500.2500, L100.0100 ####[facility] [address] [place], [address] Eosinophils/100 WBC (Bld) 9.1 % High 0-5 [facility] Comment on above: Performed By: #### L 500.2500, L100.0100 ####[facility] [address] [place], [address] Erythrocyte distribution width (RBC) [Ratio] 14.1 % Normal 11.6-14.6 [facility] Comment on above: Performed By: #### L 500.2500, L100.0100 ####[facility] [address] [place], [address] Hematocrit (Bld) [Volume fraction] 34.3 % Low 37-47 [facility] Comment on above: Performed By: #### L 500.2500, L100.0100 ####[facility] [address] [place], [address] Hemoglobin (Bld) [Mass/Vol] 11.0 g/dL Low 12.0-15.0 [facility] Comment on above: Performed By: #### L 500.2500, L100.0100 ####[facility] [address] [place], [address] IG% 0.700 Normal 0.0-0.9 [facility] Comment on above: Result Comment: IG% - Immature Granulocytes (promyelocytes, myelocytes andmetamyelocytes) > 1% indicates that a LEFT SHIFT is Present. Performed By: #### L 500.2500, L100.0100 ####[facility] [address] [place], [address] Lymphocytes/100 WBC (Bld) 13.1 % Low 19-41 [facility] Comment on above: Performed By: #### L 500.2500, L100.0100 ####[facility] [address] [place], [address] MCH (RBC) [Entitic mass] 27.8 pg Normal 27.0-32.0 [facility] Comment on above: Performed By: #### L 500.2500, L100.0100 ####[facility] [address] [place], [address] MCHC (RBC) [Mass/Vol] 32.1 g/dL Normal 32-36 [facility] Comment on above: Performed By: #### L 500.2500, L100.0100 ####[facility] [address] [place], [address] MCV (RBC) [Entitic vol] 86.6 fL Normal 81-99 [facility] Comment on above: Performed By: #### L 500.2500, L100.0100 ####[facility] [address] [place], [address] Monocytes/100 WBC (Bld) 12.1 % High 0-10 [facility] Comment on above: Performed By: #### L 500.2500, L100.0100 ####[facility] [address] [place], [address] Neutrophils/100 WBC (Bld) 64.3 % Normal 47-70 [facility] Comment on above: Performed By: #### L 500.2500, L100.0100 ####[facility] [address] [place], [address] Nucleated RBC (Bld) [#/Vol] 0 10*3/uL Normal 0-5 [facility] Comment on above: Performed By: #### L 500.2500, L100.0100 ####[facility] [address] [place], [address] Platelet mean volume (Bld) [Entitic vol] 10.1 fL Normal 6.2-12.0 [facility] Comment on above: Performed By: #### L 500.2500, L100.0100 ####[facility] [address] [place], [address] Platelets (Bld) [#/Vol] 230 10*3/uL Normal 150-450 [facility] Comment on above: Performed By: #### L 500.2500, L100.0100 ####[facility] [address] [place], [address] RBC (Bld) [#/Vol] 3.96 10*6/uL Low 4.2-5.4 [facility] Comment on above: Performed By: #### L 500.2500, L100.0100 ####[facility] [address] [place], [address] RDW SD 45.1 fl High 35.1-43.9 [facility] Comment on above: Performed By: #### L 500.2500, L100.0100 ####[facility] [address] [place], [address] WBC (Bld) [#/Vol] 7.3 10*3/uL Normal 4.4-11.0 [facility] Comment on above: Performed By: #### L 500.2500, L100.0100 ####[facility] [address] [place], [address] Calcium [Mass/Vol]Ordered By : Alba Jurado on 08-15-2024 Serum or plasma calcium measurement (mass/volume) 10.0 mg/dL 8.5-10.1 [facility] Carbon dioxide measurementOr dered By: Alba Jurado on 08-15-2024 Carbon dioxide measurement 24.0 mmol/L 21.0-32.0 [facility] Chloride measurementOrdered By: Alba Jurado on 08-15-2024 Chloride measurement 110 mmol/L High 98-107 [facility] Creatinine [Mass/Vol]Ordered By: Alba Jurado on 08-15-2024 Serum or plasma creatinine measurement (mass/volume) 0.44 mg/dL Low 0.55-1.02 [facility] Discharge Instructionon 07-24 Discharge Instruction Normal [facility] Eosinophil percentageOrdered By: Alba Jurado on 08-15-2024 Eosinophil percentage 9.1 % High 0-5 [facility] Erythrocyte distribution wid th (RBC) [Ratio]Ordered By: Alba Jurado on 08-15-2024 Erythrocyte distribution width ratio 14.1 % 11.6-14.6 [facility] Erythrocyte distribution width standard deviation 45.1 fl High 35.1-43.9 [facility] Estimated glomerular filtrat ion rate (GFR) AmericanOrdered By: Alba Jurado on 08-15-2024 Estimated glomerular filtration rate (GFR) 177 mL/min >60 [facility] Estimation of creatinine hernando aranceOrdered By: Alba Jurado on 08-15-2024 Estimation of creatinine clearance 50.62 ml/min [facility] Glomerular filtration rate ( GFR) estimationOrdered By: Alba Jurado on 08-15-2024 Glomerular filtration rate (GFR) estimation 146 mL/min >60 [facility] Glucose measurementOrdered B y: Alba Jurado on 08-15-2024 Glucose measurement 108 mg/dL High 74-106 [facility] Hematocrit Auto (Bld) [Volum e fraction]Ordered By: Alba Jurado on 08-15-2024 Automated blood hematocrit (percentage) 34.3 % Low 37-47 [facility] Hemoglobin measurementOrdere d By: Alba Jurado on 08-15-2024 Hemoglobin measurement 11.0 g/dL Low 12.0-15.[address] [facility] Immature granulocytes/100 WB C Auto (Bld)Ordered By: Alba Jurado on 08-15-2024 Automated immature granulocyte percentage 0.700 % 0.0-0.9 [facility] Lymphocytes Auto (Unsp spec) [#/Vol]Ordered By: Alba Jurado on 08-15-2024 Absolute lymphocyte count 0.95 X10^3/uL 0.83-4.51 [facility] Lymphocytes/100 WBC Auto (Un sp spec)Ordered By: Alba Jurado on 08-15-2024 Automated lymphocyte count as percentage of total leukocytes 13.1 % Low 19-41 [facility] MCV (RBC) [Entitic vol]Order ed By: Alba Jurado on 08-15-2024 MCV (mean corpuscular volume) determination 86.6 fL 81-99 [facility] Mean corpuscular hemoglobin (MCH) determinationOrdered By: Alba Jurado on 08-15-2024 Mean corpuscular hemoglobin (MCH) determination 27.8 pg 27.0-32.0 [facility] Mean corpuscular hemoglobin concentration (MCHC) determinationOrdered By: Alba Jurado on 08-15-2024 Mean corpuscular hemoglobin concentration (MCHC) determination 32.1 g/dL 32-36 [facility] Mean platelet volume determi nationOrdered By: Alba Jurado on 08-15-2024 Mean platelet volume determination 10.1 fl 6.2-12.0 [facility] Monocyte percentageOrdered B y: Alba Jurado on 08-15-2024 Monocyte percentage 12.1 % High 0-10 [facility] Neutrophil percentageOrdered By: Alba Jurado on 08-15-2024 Neutrophil percentage 64.3 % 47-70 [facility] Nucleated red blood cell per centageOrdered By: lAba Jurado on 08-15-2024 Nucleated red blood cell percentage 0 % 0-5 [facility] Platelet countOrdered By: Katie Jurado on 08-15-2024 Platelet count 230 K/mm3 150-450 [facility] Potassium measurementOrdered By: Alba Jurado on 08-15-2024 Potassium measurement 3.8 mmol/L 3.5-5.1 [facility] RBC Auto (Bld) [#/Vol]Ordere d By: Alba Jurado on 08-15-2024 Automated blood erythrocyte count 3.96 M/mm3 Low 4.2-5.4 [facility] Serum anion gap measurementO rdered By: Alba Jurado on 08-15-2024 Serum anion gap measurement 6 5-15 [facility] Sodium levelOrdered By: Alba Jurado on 08-15-2024 Sodium level 140 mmol/L 136-145 [facility] Urea nitrogen [Mass/Vol]Orde red By: Alba Jurado on 08-15-2024 Serum or plasma urea nitrogen measurement (mass/volume) 12 mg/dL 7-18 [facility] Urine Cultureon 08-15-2024 URC Normal [facility] Comment on above: Performed By: #### M 100.2200, L400.0001 ####[facility] [address] [place], [place], [address] White blood cell (WBC) count Ordered By: Alba Jurado on 08-15-2024 White blood cell (WBC) count 7.3 K/mm3 4.4-11.0 [facility] 12 Lead EKGon 08-14-2024 12 Lead EKG Normal [facility] Basic Metabolic Profile (BMP )on 08-14-2024 BUN/CRE 25.0 RATIO High 10-20 [facility] Comment on above: Performed By: #### L 100.0100, L500.2500 ####[facility] [address] [place], [address] CA,Total 9.7 mg/dL Normal 8.5-10.1 [facility] Comment on above: Performed By: #### L 100.0100, L500.2500 ####[facility] [address] [place], [address] Chloride [Moles/Vol] 108 mmol/L High 98-107 [facility] Comment on above: Performed By: #### L 100.0100, L500.2500 ####[facility] [address] [place], [address] CO2 [Moles/Vol] 24.0 mmol/L Normal 21.0-32.0 [facility] Comment on above: Performed By: #### L 100.0100, L500.2500 ####[facility] [address] [place], [address] Creatinine [Mass/Vol] 0.52 mg/dL Low 0.55-1.02 [facility] Comment on above: Result Comment: The validity of the calculated GFR GFRAA in patients over70 years has not been determined. Clinical correlation isessential. Performed By: #### L 100.0100, L500.2500 ####[facility] [address] [place], [address] ECRCL 49.59 ml/min Normal [facility] Comment on above: Performed By: #### L 100.0100, L500.2500 ####[facility] [address] [place], [address] EST GFR - AA 145 mL/min Normal >60 [facility] Comment on above: Result Comment: Afri can [facility] GFR Calc Performed By: #### L 100.0100, L500.2500 ####[facility] [address] [place], [address] GAP 6 Normal 5-15 [facility] Comment on above: Performed By: #### L 100.0100, L500.2500 ####[facility] [address] [place] [place], [address] GFR/1.73 sq M.predicted among non-blacks MDRD (S/P/Bld) [Vol rate/Area] 120 mL/min/{1.73_m2} Normal >60 [facility] Comment on above: Result Comment: Non- GFR Calc Performed By: #### L 100.0100, L500.2500 ####[facility] [address] [place], [address] Glucose [Mass/Vol] 105 mg/dL Normal 74-106 [facility] Comment on above: Result Comment: Fast ing Glucose result from 100 to 125 mg/dLsuggests IMPAIRED HOMEOSTASIS per A.D.A. criteria. Performed By: #### L 100.0100, L500.2500 ####[facility] [address] [place], [address] Potassium [Moles/Vol] 3.5 mmol/L Normal 3.5-5.1 [facility] Comment on above: Performed By: #### L 100.0100, L500.2500 ####[facility] [address] [place], [address] Sodium [Moles/Vol] 138 mmol/L Normal 136-145 [facility] Comment on above: Performed By: #### L 100.0100, L500.2500 ####[facility] [address] [place], [address] Urea nitrogen [Mass/Vol] 13 mg/dL Normal 7-18 [facility] Comment on above: Performed By: #### L 100.0100, L500.2500 ####[facility] [address] [place], [address] CBC W/Diff, Automatedon 01-2 -2024 Absolute Lymph 0.98 X10 3/uL Normal 0.83-4.51 [facility] Comment on above: Performed By: #### L 100.0100, L500.2500 ####[facility] [address] [place], [address] Absolute Neut 4.7 X10 3/uL Normal 2.0-7.7 [facility] Comment on above: Performed By: #### L 100.0100, L500.2500 ####[facility] [address] [place], [address] Basophils/100 WBC (Bld) 0.7 % Normal 0-1 [facility] Comment on above: Performed By: #### L 100.0100, L500.2500 ####[facility] [address] [place], [address] Eosinophils/100 WBC (Bld) 9.2 % High 0-5 [facility] Comment on above: Performed By: #### L 100.0100, L500.2500 ####[facility] [address] [place], [address] Erythrocyte distribution width (RBC) [Ratio] 14.0 % Normal 11.6-14.6 [facility] Comment on above: Performed By: #### L 100.0100, L500.2500 ####[facility] [address] [place], [address] Hematocrit (Bld) [Volume fraction] 34.8 % Low 37-47 [facility] Comment on above: Performed By: #### L 100.0100, L500.2500 ####[facility] [address] [place], [address] Hemoglobin (Bld) [Mass/Vol] 11.2 g/dL Low 12.0-15.0 [facility] Comment on above: Performed By: #### L 100.0100, L500.2500 ####[facility] [address] [place], [address] IG% 0.700 Normal 0.0-0.9 [facility] Comment on above: Result Comment: IG% - Immature Granulocytes (promyelocytes, myelocytes andmetamyelocytes) > 1% indicates that a LEFT SHIFT is Present. Performed By: #### L 100.0100, L500.2500 ####[facility] [address] [place], [address] Lymphocytes/100 WBC (Bld) 12.9 % Low 19-41 [facility] Comment on above: Performed By: #### L 100.0100, L500.2500 ####[facility] [address] [place], [address] MCH (RBC) [Entitic mass] 28.0 pg Normal 27.0-32.0 [facility] Comment on above: Performed By: #### L 100.0100, L500.2500 ####[facility] [address] [place], [address] MCHC (RBC) [Mass/Vol] 32.2 g/dL Normal 32-36 [facility] Comment on above: Performed By: #### L 100.0100, L500.2500 ####[facility] [address] [place], [address] MCV (RBC) [Entitic vol] 87.0 fL Normal 81-99 [facility] Comment on above: Performed By: #### L 100.0100, L500.2500 ####[facility] [address] [place], [address] Monocytes/100 WBC (Bld) 14.2 % High 0-10 [facility] Comment on above: Performed By: #### L 100.0100, L500.2500 ####[facility] [address] [place], [address] Neutrophils/100 WBC (Bld) 62.3 % Normal 47-70 [facility] Comment on above: Performed By: #### L 100.0100, L500.2500 ####[facility] [address] [place], [address] Nucleated RBC (Bld) [#/Vol] 0 10*3/uL Normal 0-5 [facility] Comment on above: Performed By: #### L 100.0100, L500.2500 ####[facility] [address] [place], [address] Platelet mean volume (Bld) [Entitic vol] 10.1 fL Normal 6.2-12.0 [facility] Comment on above: Performed By: #### L 100.0100, L500.2500 ####[facility] [address] [place], [address] Platelets (Bld) [#/Vol] 221 10*3/uL Normal 150-450 [facility] Comment on above: Performed By: #### L 100.0100, L500.2500 ####[facility] [address] [place], [address] RBC (Bld) [#/Vol] 4.00 10*6/uL Low 4.2-5.4 [facility] Comment on above: Performed By: #### L 100.0100, L500.2500 ####[facility] [address] [place], [address] RDW SD 44.5 fl High 35.1-43.9 [facility] Comment on above: Performed By: #### L 100.0100, L500.2500 ####[facility] [address] [place], [address] WBC (Bld) [#/Vol] 7.6 10*3/uL Normal 4.4-11.0 [facility] Comment on above: Performed By: #### L 100.0100, L500.2500 ####[facility] [address] [place], [address] L501.4020on 08-14-2024 TROPONIN-I HS 26 pg/mL Normal 3.0-54.0 [facility] Comment on above: Order Comment: Comme nts: SPECIMEN #3'TROP' Serial specimen #1, #2 or #3: 3 Result Comment: Plea se Note: New Test Units and Gender Specific Reference Ranges. For more information see Policy Stat Procedure [place] High Sensitivity Troponin (TNIH) and attachments. Performed By: #### L 501.4020 ####[facility] [address] [place], [address] TROPONIN-I HS 28 pg/mL Normal 3.0-54.0 [facility] Comment on above: Order Comment: Comme nts: SPECIMEN #2'TROP' Serial specimen #1, #2 or #3: 2 Result Comment: Plea se Note: New Test Units and Gender Specific Reference Ranges. For more information see Policy Stat Procedure [place] High Sensitivity Troponin (TNIH) and attachments. Performed By: #### L 501.4020 ####[facility] [address] [place], [address] TROPONIN-I HS 27 pg/mL Normal 3.0-54.0 [facility] Comment on above: Order Comment: 'TROP ' Serial specimen #1, #2 or #3: 1 Result Comment: Plea se Note: New Test Units and Gender Specific Reference Ranges. For more information see Policy Stat Procedure [place] High Sensitivity Troponin (TNIH) and attachments. Performed By: #### L 501.4020 ####[facility] [address] [place], [address] M8200.1000on 08-14-2024 M8200.1000 Normal [facility] Comment on above: Performed By: #### M 8200.1000 ####[facility] [address] [place], [address] Troponin IOrdered By: Alba swain on 08-14-2024 Troponin I 26 pg/mL 3.0-54.0 [facility] ALP [Catalytic activity/Vol] Ordered By: [facility] Danay on 08-13-2024 Serum or plasma alkaline phosphatase measurement 98 U/L 45-117 [facility] Albumin [Mass/Vol]Ordered By : [facility] Danay on 08-13-2024 Serum or plasma albumin measurement (mass/volume) 2.4 g/dL Low 3.2-5.0 [facility] Albumin to globulin ratioOrd ered By: Jennifer Danay on 08-13-2024 Albumin to globulin ratio 0.7 RATIO Low 0.9-2.4 [facility] Bilirubin, totalOrdered By: [facility] Danay on 08-13-2024 Bilirubin, total 0.30 mg/dL 0.20-1.00 [facility] CBC W/Diff, Automatedon 07-24 Absolute Lymph 0.65 X10 3/uL Low 0.83-4.51 [facility] Comment on above: Performed By: #### L 100.0100, L500.4050 ####[facility] [address] [place], [address] Absolute Neut 4.7 X10 3/uL Normal 2.0-7.7 [facility] Comment on above: Performed By: #### L 100.0100, L500.4050 ####[facility] [address] [place], [address] Basophils/100 WBC (Bld) 0.7 % Normal 0-1 [facility] Comment on above: Performed By: #### L 100.0100, L500.4050 ####[facility] [address] [place], [address] Eosinophils/100 WBC (Bld) 11.5 % High 0-5 [facility] Comment on above: Performed By: #### L 100.0100, L500.4050 ####[facility] [address] [place], [address] Erythrocyte distribution width (RBC) [Ratio] 13.9 % Normal 11.6-14.6 [facility] Comment on above: Performed By: #### L 100.0100, L500.4050 ####[facility] [address] [place], [address] Hematocrit (Bld) [Volume fraction] 38.6 % Normal 37-47 [facility] Comment on above: Performed By: #### L 100.0100, L500.4050 ####[facility] [address] [place], [address] Hemoglobin (Bld) [Mass/Vol] 12.2 g/dL Normal 12.0-15.0 [facility] Comment on above: Performed By: #### L 100.0100, L500.4050 ####[facility] [address] [place], [address] IG% 0.400 Normal 0.0-0.9 [facility] Comment on above: Result Comment: IG% - Immature Granulocytes (promyelocytes, myelocytes andmetamyelocytes) > 1% indicates that a LEFT SHIFT is Present. Performed By: #### L 100.0100, L500.4050 ####[facility] [address] [place], [address] Lymphocytes/100 WBC (Bld) 9.1 % Low 19-41 [facility] Comment on above: Performed By: #### L 100.0100, L500.4050 ####[facility] [address] [place], [address] MCH (RBC) [Entitic mass] 28.0 pg Normal 27.0-32.0 [facility] Comment on above: Performed By: #### L 100.0100, L500.4050 ####[facility] [address] [place], [address] MCHC (RBC) [Mass/Vol] 31.6 g/dL Low 32-36 [facility] Comment on above: Performed By: #### L 100.0100, L500.4050 ####[facility] [address] [place], [address] MCV (RBC) [Entitic vol] 88.5 fL Normal 81-99 [facility] Comment on above: Performed By: #### L 100.0100, L500.4050 ####[facility] [address] [place], [address] Monocytes/100 WBC (Bld) 13.3 % High 0-10 [facility] Comment on above: Performed By: #### L 100.0100, L500.4050 ####[facility] [address] [place], [address] Neutrophils/100 WBC (Bld) 65.0 % Normal 47-70 [facility] Comment on above: Performed By: #### L 100.0100, L500.4050 ####[facility] [address] [place], [address] Nucleated RBC (Bld) [#/Vol] 0 10*3/uL Normal 0-5 [facility] Comment on above: Performed By: #### L 100.0100, L500.4050 ####[facility] [address] [place], [address] Platelet mean volume (Bld) [Entitic vol] 10.0 fL Normal 6.2-12.0 [facility] Comment on above: Performed By: #### L 100.0100, L500.4050 ####[facility] [address] [place], [address] Platelets (Bld) [#/Vol] 217 10*3/uL Normal 150-450 [facility] Comment on above: Performed By: #### L 100.0100, L500.4050 ####[facility] [address] [place], [address] RBC (Bld) [#/Vol] 4.36 10*6/uL Normal 4.2-5.4 [facility] Comment on above: Performed By: #### L 100.0100, L500.4050 ####[facility] [address] [place], [address] RDW SD 45.0 fl High 35.1-43.9 [facility] Comment on above: Performed By: #### L 100.0100, L500.4050 ####[facility] [address] [place], [address] WBC (Bld) [#/Vol] 7.2 10*3/uL Normal 4.4-11.0 [facility] Comment on above: Performed By: #### L 100.0100, L500.4050 ####[facility] [address] [place], [address] Comprehensive Metabolic Prof ilon 08-13-2024 Albumin [Mass/Vol] 2.4 g/dL Low 3.2-5.0 [facility] Comment on above: Performed By: #### L 100.0100, L500.4050 ####[facility] [address] [place], [address] Albumin/Globulin [Mass ratio] 0.7 {ratio} Low 0.9-2.4 [facility] Comment on above: Performed By: #### L 100.0100, L500.4050 ####[facility] [address] [place], [address] ALK P 98 U/L Normal 45-117 [facility] Comment on above: Performed By: #### L 100.0100, L500.4050 ####[facility] [address] [place], [address] ALT [Catalytic activity/Vol] 18 U/L Normal 13-56 [facility] Comment on above: Performed By: #### L 100.0100, L500.4050 ####[facility] [address] [place], [address] AST [Catalytic activity/Vol] 18 U/L Normal 15-37 [facility] Comment on above: Performed By: #### L 100.0100, L500.4050 ####[facility] [address] [place], [address] Bilirubin [Mass/Vol] 0.30 mg/dL Normal 0.20-1.00 [facility] Comment on above: Result Comment: For patients on eltrombopag therapy, use of Dimension [place] TBIL is not recommended. Performed By: #### L 100.0100, L500.4050 ####[facility] [address] [place], [address] BUN/CRE 22.3 RATIO High 10-20 [facility] Comment on above: Performed By: #### L 100.0100, L500.4050 ####[facility] [address] [place], [address] CA,Total 9.8 mg/dL Normal 8.5-10.1 [facility] Comment on above: Performed By: #### L 100.0100, L500.4050 ####[facility] [address] [place], [address] Chloride [Moles/Vol] 110 mmol/L High 98-107 [facility] Comment on above: Performed By: #### L 100.0100, L500.4050 ####[facility] [address] [place], [address] CO2 [Moles/Vol] 27.0 mmol/L Normal 21.0-32.0 [facility] Comment on above: Performed By: #### L 100.0100, L500.4050 ####[facility] [address] [place], [address] Creatinine [Mass/Vol] 0.72 mg/dL Normal 0.55-1.02 [facility] Comment on above: Result Comment: The validity of the calculated GFR GFRAA in patients over70 years has not been determined. Clinical correlation isessential. Performed By: #### L 100.0100, L500.4050 ####[facility] [address] [place], [address] ECRCL 49.59 ml/min Normal [facility] Comment on above: Performed By: #### L 100.0100, L500.4050 ####[facility] [address] [place], [address] EST GFR - AA 100 mL/min Normal >60 [facility] Comment on above: Result Comment: Afri can [facility] GFR Calc Performed By: #### L 100.0100, L500.4050 ####[facility] [address] [place], [address] GAP 6 Normal 5-15 [facility] Comment on above: Performed By: #### L 100.0100, L500.4050 ####[facility] [address] [place], [address] GFR/1.73 sq M.predicted among non-blacks MDRD (S/P/Bld) [Vol rate/Area] 83 mL/min/{1.73_m2} Normal >60 [facility] Comment on above: Result Comment: Non- GFR Calc Performed By: #### L 100.0100, L500.4050 ####[facility] [address] [place], [address] Globulin (S) [Mass/Vol] 3.3 g/dL Normal 2.2-4.2 [facility] Comment on above: Performed By: #### L 100.0100, L500.4050 ####[facility] [address] [place], [address] Glucose [Mass/Vol] 112 mg/dL High 74-106 [facility] Comment on above: Result Comment: Fast ing Glucose result from 100 to 125 mg/dLsuggests IMPAIRED HOMEOSTASIS per A.D.A. criteria. Performed By: #### L 100.0100, L500.4050 ####[facility] [address] [place], [address] Potassium [Moles/Vol] 3.2 mmol/L Low 3.5-5.1 [facility] Comment on above: Performed By: #### L 100.0100, L500.4050 ####[facility] [address] [place], [address] Sodium [Moles/Vol] 142 mmol/L Normal 136-145 [facility] Comment on above: Performed By: #### L 100.0100, L500.4050 ####[facility] [address] [place], [address] T PROT 5.7 g/dL Low 6.4-8.2 [facility] Comment on above: Performed By: #### L 100.0100, L500.4050 ####[facility] [address] [place], [address] Urea nitrogen [Mass/Vol] 16 mg/dL Normal 7-18 [facility] Comment on above: Performed By: #### L 100.0100, L500.4050 ####[facility] [address] [place], [address] Legionella Antigen Urineon 0 - LEGU Normal [facility] Comment on above: Performed By: #### M 300.4500 ####[facility] [address] [place], [place], [address] Procalcitoninon 08-13-2024 Procalcitonin 0.12 ng/mL High 0.00-0.09 [facility] Comment on above: Result Comment: A pr ocalcitonin (PCT) level above 2.0 ng/mL on the first day of ICU admission is associated with a high risk for progression to severe sepsis and/or septic shock. A PCT level below 0.5 ng/mL on the first day of ICU admission is associated with a low risk for progression to severe and/or septic shock. Note: Concentrations <0.5 ng/mL do not exclude an infection on account of localized infections (without systemic signs) which can be associated with such low concentrations, or a systemic infection in its initial stages (<6 hours). Furthermore, increased procalcitonin can occur without infection. PCT concentrations between 0.5 and 2.0 ng/mL should be interpreted taking into account the patient's history. It is recommended to retest PCT within 6-24 hours if any concentrations <2 ng/mL are obtained. Performed By: #### L 509.7004 ####[facility] [address] [facility] [place], [place], [id number] RESPIRATORY PANEL MOLECULARo n 08-13-2024 RP PANEL Normal [facility] Comment on above: Performed By: #### M 100.638 ####[facility] [address] [facility] [address] [facility] [id number] Serum globulin measurementOr dered By: Jennifer Jon on 08-13-2024 Serum globulin measurement 3.3 g/dL 2.2-4.2 [facility] Serum or plasma alanine nguyen otransferase (ALT) measurementOrdered By: Jennifer Danay on 08-13-2024 Serum or plasma alanine aminotransferase (ALT) measurement 18 U/L 13-56 [facility] Strep pneumoniae Antig(UR,CS F)on 08-13-2024 STPAG Normal [facility] Comment on above: Performed By: #### M 300.2372 ####[facility] [address] [facility] [place], [address] Total proteinOrdered By: Aut umn White on 08-13-2024 Total protein 5.7 g/dL Low 6.4-8.2 [facility] 12 Lead EKGon 08-12-2024 12 Lead EKG Normal [facility] BNP (brain natriuretic pepti de measurement)Ordered By: Tomer Lopez on 08-12-2024 BNP (brain natriuretic peptide measurement) 36.5 pg/mL 0-100 [facility] BNP,B-Type NATRIURETIC PEPTI Jesenia 08-12-2024 Natriuretic peptide B (Bld) [Mass/Vol] 36.5 pg/mL Normal 0-100 [facility] Comment on above: Performed By: #### L 503.6620 ####[facility] [address] [place], [address] Bacteria LM.HPF (Urine sed) [#/Area]Ordered By: Tomer Lopez on 08-12-2024 Urine sediment bacteria count by microscopy (number/high power field) 2+ /hpf None Seen [facility] Blood cultureOrdered By: Afshan Lopez on 08-12-2024 Blood culture No growth in 5 days. [facility] CBC W/Diff, Automatedon 07-24 Absolute Lymph 0.83 X10 3/uL Normal 0.83-4.51 [facility] Comment on above: Performed By: #### L 503.6005, L501.4020, L500.4050, L300.4310, M200.1000, L100.0100, L300.3900 ####[facility] [address] [place], [address] Absolute Neut 5.9 X10 3/uL Normal 2.0-7.7 [facility] Comment on above: Performed By: #### L 503.6005, L501.4020, L500.4050, L300.4310, M200.1000, L100.0100, L300.3900 ####[facility] [address] [place], [address] Basophils/100 WBC (Bld) 0.7 % Normal 0-1 [facility] Comment on above: Performed By: #### L 503.6005, L501.4020, L500.4050, L300.4310, M200.1000, L100.0100, L300.3900 ####[facility] [address] [place], [address] Eosinophils/100 WBC (Bld) 6.1 % High 0-5 [facility] Comment on above: Performed By: #### L 503.6005, L501.4020, L500.4050, L300.4310, M200.1000, L100.0100, L300.3900 ####[facility] [address] [place], [address] Erythrocyte distribution width (RBC) [Ratio] 13.2 % Normal 11.6-14.6 [facility] Comment on above: Performed By: #### L 503.6005, L501.4020, L500.4050, L300.4310, M200.1000, L100.0100, L300.3900 ####[facility] [address] [place], [address] Hematocrit (Bld) [Volume fraction] 42.5 % Normal 37-47 [facility] Comment on above: Performed By: #### L 503.6005, L501.4020, L500.4050, L300.4310, M200.1000, L100.0100, L300.3900 ####[facility] [address] [place], [address] Hemoglobin (Bld) [Mass/Vol] 14.2 g/dL Normal 12.0-15.0 [facility] Comment on above: Performed By: #### L 503.6005, L501.4020, L500.4050, L300.4310, M200.1000, L100.0100, L300.3900 ####[facility] [address] [place], [address] IG% 0.500 Normal 0.0-0.9 [facility] Comment on above: Result Comment: IG% - Immature Granulocytes (promyelocytes, myelocytes andmetamyelocytes) > 1% indicates that a LEFT SHIFT is Present. Performed By: #### L 503.6005, L501.4020, L500.4050, L300.4310, M200.1000, L100.0100, L300.3900 ####[facility] [address] [place], [address] Lymphocytes/100 WBC (Bld) 10.1 % Low 19-41 [facility] Comment on above: Performed By: #### L 503.6005, L501.4020, L500.4050, L300.4310, M200.1000, L100.0100, L300.3900 ####[facility] [address] [place], [address] MCH (RBC) [Entitic mass] 27.9 pg Normal 27.0-32.0 [facility] Comment on above: Performed By: #### L 503.6005, L501.4020, L500.4050, L300.4310, M200.1000, L100.0100, L300.3900 ####[facility] [address] [place], [address] MCHC (RBC) [Mass/Vol] 33.4 g/dL Normal 32-36 [facility] Comment on above: Performed By: #### L 503.6005, L501.4020, L500.4050, L300.4310, M200.1000, L100.0100, L300.3900 ####[facility] [address] [place], [address] MCV (RBC) [Entitic vol] 83.5 fL Normal 81-99 [facility] Comment on above: Performed By: #### L 503.6005, L501.4020, L500.4050, L300.4310, M200.1000, L100.0100, L300.3900 ####[facility] [address] [place], [address] Monocytes/100 WBC (Bld) 11.7 % High 0-10 [facility] Comment on above: Performed By: #### L 503.6005, L501.4020, L500.4050, L300.4310, M200.1000, L100.0100, L300.3900 ####[facility] [address] [place], [address] Neutrophils/100 WBC (Bld) 70.9 % High 47-70 [facility] Comment on above: Performed By: #### L 503.6005, L501.4020, L500.4050, L300.4310, M200.1000, L100.0100, L300.3900 ####[facility] [address] [place], [address] Nucleated RBC (Bld) [#/Vol] 0 10*3/uL Normal 0-5 [facility] Comment on above: Performed By: #### L 503.6005, L501.4020, L500.4050, L300.4310, M200.1000, L100.0100, L300.3900 ####[facility] [address] [place], [address] Platelet mean volume (Bld) [Entitic vol] 10.4 fL Normal 6.2-12.0 [facility] Comment on above: Performed By: #### L 503.6005, L501.4020, L500.4050, L300.4310, M200.1000, L100.0100, L300.3900 ####[facility] [address] [place], [address] Platelets (Bld) [#/Vol] 270 10*3/uL Normal 150-450 [facility] Comment on above: Performed By: #### L 503.6005, L501.4020, L500.4050, L300.4310, M200.1000, L100.0100, L300.3900 ####[facility] [address] [place], [address] RBC (Bld) [#/Vol] 5.09 10*6/uL Normal 4.2-5.4 [facility] Comment on above: Performed By: #### L 503.6005, L501.4020, L500.4050, L300.4310, M200.1000, L100.0100, L300.3900 ####[facility] [address] [place], [address] RDW SD 40.3 fl Normal 35.1-43.9 [facility] Comment on above: Performed By: #### L 503.6005, L501.4020, L500.4050, L300.4310, M200.1000, L100.0100, L300.3900 ####[facility] [address] [place], [address] WBC (Bld) [#/Vol] 8.2 10*3/uL Normal 4.4-11.0 [facility] Comment on above: Performed By: #### L 503.6005, L501.4020, L500.4050, L300.4310, M200.1000, L100.0100, L300.3900 ####[facility] [address] [place], [address] Chest PA and Lateralon 08-12 Chest PA and Lateral Normal [facility] Clarity (U)Ordered By: Tomer Lopez on 08-12-2024 Urine clarity Clear Clear [facility] Color (U)Ordered By: Tomer stanton on 08-12-2024 Urine color determination Yellow Yellow [facility] Comprehensive Metabolic Prof ilon 08-12-2024 Albumin [Mass/Vol] 3.0 g/dL Low 3.2-5.0 [facility] Comment on above: Order Comment: 'TROP ' Serial specimen #1, #2 or #3: 1 Performed By: #### L 503.6005, L501.4020, L500.4050, L300.4310, M200.1000, L100.0100, L300.3900 ####[facility] [address] [place], [address] Albumin/Globulin [Mass ratio] 0.8 {ratio} Low 0.9-2.4 [facility] Comment on above: Order Comment: 'TROP ' Serial specimen #1, #2 or #3: 1 Performed By: #### L 503.6005, L501.4020, L500.4050, L300.4310, M200.1000, L100.0100, L300.3900 ####[facility] [address] [place], [address] ALK P 118 U/L High 45-117 [facility] Comment on above: Order Comment: 'TROP ' Serial specimen #1, #2 or #3: 1 Performed By: #### L 503.6005, L501.4020, L500.4050, L300.4310, M200.1000, L100.0100, L300.3900 ####[facility] [address] [place], [address] ALT [Catalytic activity/Vol] 25 U/L Normal 13-56 [facility] Comment on above: Order Comment: 'TROP ' Serial specimen #1, #2 or #3: 1 Performed By: #### L 503.6005, L501.4020, L500.4050, L300.4310, M200.1000, L100.0100, L300.3900 ####[facility] [address] [place], [address] AST [Catalytic activity/Vol] 20 U/L Normal 15-37 [facility] Comment on above: Order Comment: 'TROP ' Serial specimen #1, #2 or #3: 1 Performed By: #### L 503.6005, L501.4020, L500.4050, L300.4310, M200.1000, L100.0100, L300.3900 ####[facility] [address] [place], [address] Bilirubin [Mass/Vol] 0.70 mg/dL Normal 0.20-1.00 [facility] Comment on above: Order Comment: 'TROP ' Serial specimen #1, #2 or #3: 1 Result Comment: For patients on eltrombopag therapy, use of Dimension [place] TBIL is not recommended. Performed By: #### L 503.6005, L501.4020, L500.4050, L300.4310, M200.1000, L100.0100, L300.3900 ####[facility] [address] [place], [address] BUN/CRE 22.5 RATIO High 10-20 [facility] Comment on above: Order Comment: 'TROP ' Serial specimen #1, #2 or #3: 1 Performed By: #### L 503.6005, L501.4020, L500.4050, L300.4310, M200.1000, L100.0100, L300.3900 ####[facility] [address] [place], [address] CA,Total 10.5 mg/dL High 8.5-10.1 [facility] Comment on above: Order Comment: 'TROP ' Serial specimen #1, #2 or #3: 1 Performed By: #### L 503.6005, L501.4020, L500.4050, L300.4310, M200.1000, L100.0100, L300.3900 ####[facility] [address] [place], [address] Chloride [Moles/Vol] 96 mmol/L Low 98-107 [facility] Comment on above: Order Comment: 'TROP ' Serial specimen #1, #2 or #3: 1 Performed By: #### L 503.6005, L501.4020, L500.4050, L300.4310, M200.1000, L100.0100, L300.3900 ####[facility] [address] [place], [address] CO2 [Moles/Vol] 30.0 mmol/L Normal 21.0-32.0 [facility] Comment on above: Order Comment: 'TROP ' Serial specimen #1, #2 or #3: 1 Performed By: #### L 503.6005, L501.4020, L500.4050, L300.4310, M200.1000, L100.0100, L300.3900 ####[facility] [address] [place], [address] Creatinine [Mass/Vol] 0.98 mg/dL Normal 0.55-1.02 [facility] Comment on above: Order Comment: 'TROP ' Serial specimen #1, #2 or #3: 1 Result Comment: The validity of the calculated GFR GFRAA in patients over70 years has not been determined. Clinical correlation isessential. Performed By: #### L 503.6005, L501.4020, L500.4050, L300.4310, M200.1000, L100.0100, L300.3900 ####[facility] [address] [place], [address] EST GFR - AA 70 mL/min Normal >60 [facility] Comment on above: Order Comment: 'TROP ' Serial specimen #1, #2 or #3: 1 Result Comment: Afri can [facility] GFR Calc Performed By: #### L 503.6005, L501.4020, L500.4050, L300.4310, M200.1000, L100.0100, L300.3900 ####[facility] [address] [place], [address] GAP 11 Normal 5-15 [facility] Comment on above: Order Comment: 'TROP ' Serial specimen #1, #2 or #3: 1 Performed By: #### L 503.6005, L501.4020, L500.4050, L300.4310, M200.1000, L100.0100, L300.3900 ####[facility] [address] [place], [address] GFR/1.73 sq M.predicted among non-blacks MDRD (S/P/Bld) [Vol rate/Area] 58 mL/min/{1.73_m2} Low >60 [facility] Comment on above: Order Comment: 'TROP ' Serial specimen #1, #2 or #3: 1 Result Comment: Non- GFR Calc Performed By: #### L 503.6005, L501.4020, L500.4050, L300.4310, M200.1000, L100.0100, L300.3900 ####[facility] [address] [place], [address] Globulin (S) [Mass/Vol] 3.8 g/dL Normal 2.2-4.2 [facility] Comment on above: Order Comment: 'TROP ' Serial specimen #1, #2 or #3: 1 Performed By: #### L 503.6005, L501.4020, L500.4050, L300.4310, M200.1000, L100.0100, L300.3900 ####[facility] [address] [place], [address] Glucose [Mass/Vol] 185 mg/dL High 74-106 [facility] Comment on above: Order Comment: 'TROP ' Serial specimen #1, #2 or #3: 1 Result Comment: Fast ing Glucose result greater than or equal to 126 mg/dLsuggests DIABETES MELLITUS per A.D.A. criteria. Performed By: #### L 503.6005, L501.4020, L500.4050, L300.4310, M200.1000, L100.0100, L300.3900 ####[facility] [address] [place], [address] Potassium [Moles/Vol] 2.9 mmol/L Low 3.5-5.1 [facility] Comment on above: Order Comment: 'TROP ' Serial specimen #1, #2 or #3: 1 Performed By: #### L 503.6005, L501.4020, L500.4050, L300.4310, M200.1000, L100.0100, L300.3900 ####[facility] [address] [place], [address] Sodium [Moles/Vol] 137 mmol/L Normal 136-145 [facility] Comment on above: Order Comment: 'TROP ' Serial specimen #1, #2 or #3: 1 Performed By: #### L 503.6005, L501.4020, L500.4050, L300.4310, M200.1000, L100.0100, L300.3900 ####[facility] [address] [place], [address] T PROT 6.8 g/dL Normal 6.4-8.2 [facility] Comment on above: Order Comment: 'TROP ' Serial specimen #1, #2 or #3: 1 Performed By: #### L 503.6005, L501.4020, L500.4050, L300.4310, M200.1000, L100.0100, L300.3900 ####[facility] [address] [place], [address] Urea nitrogen [Mass/Vol] 22 mg/dL High 7-18 [facility] Comment on above: Order Comment: 'TROP ' Serial specimen #1, #2 or #3: 1 Performed By: #### L 503.6005, L501.4020, L500.4050, L300.4310, M200.1000, L100.0100, L300.3900 ####[facility] [address] [place], [place], [id number] Emergency Department Summary on 08-12-2024 Emergency Department Summary Normal [facility] Glucose Ql (U)Ordered By: Jay Lopez on 08-12-2024 Urine glucose detection Normal mg/dl Normal [facility] H AND P Exam - Hospitaliston 08-12-2024 H&P Exam - Hospitalist Normal [facility] International normalized rat io (INR) calculationOrdered By: Tomer Lopez on 08-12-2024 International normalized ratio (INR) calculation 1.0 [facility] L501.4020on 08-12-2024 TROPONIN-I HS 29 pg/mL Normal 3.0-54.0 [facility] Comment on above: Order Comment: 'TROP ' Serial specimen #1, #2 or #3: 1 Result Comment: Plea se Note: New Test Units and Gender Specific Reference Ranges. For more information see Policy Stat Procedure [place] High Sensitivity Troponin (TNIH) and attachments. Performed By: #### L 503.6005, L501.4020, L500.4050, L300.4310, M200.1000, L100.0100, L300.3900 ####[facility] [address] [place], [place], [id number] Lactic Acidon 08-12-2024 Lactate [Moles/Vol] 1.3 mmol/L Normal 0.4-1.9 [facility] Comment on above: Order Comment: Y Performed By: #### L 503.6005, L501.4020, L500.4050, L300.4310, M200.1000, L100.0100, L300.3900 ####[facility] [address] [place], [place], [id number] Lactic acid measurementOrder ed By: Tomer Lopez on 08-12-2024 Lactic acid measurement 1.3 mmol/L 0.4-2.0 [facility] Leukocyte esterase Test stri p Ql (U)Ordered By: Tomer Lopez on 08-12-2024 Urine leukocyte esterase detection by dipstick 100 /ul High Negative [facility] M100.678on 08-12-2024 M100.678 Pending SARS-CoV-2 (COVID 19) Negative INFLUENZA A Negative INFLUENZA B Negative RSV PCR Negative Normal [facility] Comment on above: Performed By: #### M 100.678 ####[facility] [address] [place], [place], [id number] Magnesiumon 08-12-2024 Magnesium [Mass/Vol] 2.2 mg/dL Normal 1.6-2.6 [facility] Comment on above: Performed By: #### L 501.5200 ####[facility] [address] [place], [place], [id number] Magnesium measurementOrdered By: Tomer oLpez on 08-12-2024 Magnesium measurement 2.2 mg/dL 1.6-2.6 [facility] Microscopic analysis of urin e for red blood cells (RBC)Ordered By: Tomer Lopez on 08-12-2024 Microscopic analysis of urine for red blood cells (RBC) 0-5 SEEN /hpf 0-5 [facility] Mucus LM Ql (Urine sed)Order ed By: Tomer Lopez on 08-12-2024 Mucus detection in urine sediment by light microscopy 1+ /hpf [facility] Nitrite Test strip Ql (U)Ord ered By: Tomer Lopez on 08-12-2024 Urine nitrite test by dipstick Positive High Negative [facility] Partial Thromboplast Timeon 08-12-2024 aPTT Coag (Bld) [Time] 28.2 s Normal 24.1-36.[address] [facility] Comment on above: Performed By: #### L 503.6005, L501.4020, L500.4050, L300.4310, M200.1000, L100.0100, L300.3900 ####[facility] [address] [place], [place], [id number] Procalcitonin [Mass/Vol]Orde red By: Jennifer Jon on 08-12-2024 Serum procalcitonin measurement 0.12 ng/mL High 0.00-0.09 [facility] Protein Test strip Ql (U)Ord ered By: Tomer Lopez on 08-12-2024 Urine protein assay by test strip, semi-quantitative 15 mg/dl High Negative [facility] Prothrombin Time w/INRon INR Coag (PPP) [Relative time] 1.0 {INR} Normal [facility] Comment on above: Performed By: #### L 503.6005, L501.4020, L500.4050, L300.4310, M200.1000, L100.0100, L300.3900 ####[facility] [address] [place], [place], [id number] PT Coag (PPP) [Time] 13.3 s Normal 11.7-14.9 [facility] Comment on above: Performed By: #### L 503.6005, L501.4020, L500.4050, L300.4310, M200.1000, L100.0100, L300.3900 ####[facility] [address] [place], [place], [id number] Prothrombin timeOrdered By: Tomer Lopez on 08-12-2024 Prothrombin time 13.3 SECONDS 11.7-14.9 [facility] Specific gravity (U) [Rel de nsity]Ordered By: Tomer Lopez on 08-12-2024 Urine specific gravity measurement 1.020 1.002-1.030 [facility] Urinalysis, Completeon 08-12 BACTERIA 2+ /hpf Normal None Seen [facility] Comment on above: Order Comment: MADISON CTOR TO SPECIFY Performed By: #### M 100.2200, L400.0001 ####[facility] [address] [place], [place], [id number] EPI,RENAL 0-5 SEEN Normal 0-5 [facility] Comment on above: Order Comment: MADISON CTOR TO SPECIFY Performed By: #### M 100.2200, L400.0001 ####[facility] [address] [place], [address] EPI,SQUAMOUS 5-10 SEEN Normal 5-10 [facility] Comment on above: Order Comment: MADISON CTOR TO SPECIFY Performed By: #### M 100.2200, L400.0001 ####[facility] [address] [place], [address] EPI,TRANSITION 0-5 SEEN Normal 0-5 [facility] Comment on above: Order Comment: MADISON CTOR TO SPECIFY Performed By: #### M 100.2200, L400.0001 ####[facility] [address] [place], [address] Mucus Ql (Urine sed) 1+ /hpf Normal [facility] Comment on above: Order Comment: MADISON CTOR TO SPECIFY Performed By: #### M 100.2200, L400.0001 ####[facility] [address] [place], [address] RBC 0-5 SEEN Normal 0-5 [facility] Comment on above: Order Comment: MADISON CTOR TO SPECIFY Performed By: #### M 100.2200, L400.0001 ####[facility] [address] [place], [address] WBC 5-10 SEEN Normal 0-5 [facility] Comment on above: Order Comment: MADISON CTOR TO SPECIFY Performed By: #### M 100.2200, L400.0001 ####[facility] [address] [place], [address] Urine blood detectionOrdered By: Tomer Lopez on 08-12-2024 Urine blood detection 25 /ul High Negative [facility] Urine cultureOrdered By: Afshan Lopez on 08-12-2024 Urine culture Staphylococcus simulans Abnormal [facility] Urine total bilirubin detect ion by test stripOrdered By: Tomer Lopez on 08-12-2024 Urine total bilirubin detection by test strip Negative Negative [facility] Urobilinogen Ql (U)Ordered B y: Tomer Lopez on 08-12-2024 Urine urobilinogen measurement 1 mg/dl High Normal [facility] White blood cell countOrdere d By: Tomer Lopez on 08-12-2024 White blood cell count 5-10 SEEN /hpf 5-10 [facility] aPTT Coag (PPP) [Time]Ordere d By: Tomer Lopez on 08-12-2024 Activated partial thromboplastin time (aPTT) in platelet poor plasma by coagulation a 28.2 Seconds 24.1-36.2 [facility] pH (U)Ordered By: Tomer Madsen jeffrey on 08-12-2024 Urine pH 6.0 5.0 - 8.0 [facility] .Auto Diffon 08-04-2024 Basophil, Absolute 0.1 10 3/mcL Normal 0.0-0.2 [facility] Comment on above: Performed By: #### C BC, GFR, ADIFF, LIPID, TSHR, PHOS, ANEU, BMP #### [address] [address] Basophils/100 WBC (Bld) 1.2 % Normal 0.0-2.5 [facility] Comment on above: Performed By: #### C BC, GFR, ADIFF, LIPID, TSHR, PHOS, ANEU, BMP #### [address] [address] Eosinophil, Absolute 0.3 10 3/mcL Normal 0.0-0.7 [facility] Comment on above: Performed By: #### C BC, GFR, ADIFF, LIPID, TSHR, PHOS, ANEU, BMP #### [address] [address] Eosinophils/100 WBC (Bld) 2.9 % Normal 0.0-7.0 [facility] Comment on above: Performed By: #### C BC, GFR, ADIFF, LIPID, TSHR, PHOS, ANEU, BMP #### [address] [address] Lymphocyte, Absolute 1.3 10 3/mcL Normal 0.9-4.3 [facility] Comment on above: Performed By: #### C BC, GFR, ADIFF, LIPID, TSHR, PHOS, ANEU, BMP #### [address] [address] Lymphocytes/100 WBC (Bld) 12.2 % Low 20.0-40.0 [facility] Comment on above: Performed By: #### C BC, GFR, ADIFF, LIPID, TSHR, PHOS, ANEU, BMP #### [address] [address] Monocyte, Absolute 1.2 10 3/mcL Normal 0.1-1.4 [facility] Comment on above: Performed By: #### C BC, GFR, ADIFF, LIPID, TSHR, PHOS, ANEU, BMP #### [address] [address] Monocytes/100 WBC (Bld) 11.4 % Normal 2.0-13.0 [facility] Comment on above: Performed By: #### C BC, GFR, ADIFF, LIPID, TSHR, PHOS, ANEU, BMP #### [address] [address] Neutrophils/100 WBC (Bld) 72.3 % Normal 50.0-75.0 [facility] Comment on above: Performed By: #### C BC, GFR, ADIFF, LIPID, TSHR, PHOS, ANEU, BMP #### [address] [address] .GFRon 08-04-2024 GFR 74 ml/min/1.73sqm Normal [facility] Comment on above: Result Comment: GFR Population mean for , Non- Americans Ages 20-29 = 116 mL/min/1.73 sq.m. Ages 30-39 = 107 mL/min/1.73 sq.m. Ages 40-49 = 99 mL/min/1.73 sq.m. Ages 50-59 = 93 mL/min/1.73 sq.m. Ages 60-69 = 85 mL/min/1.73 sq.m. Ages 70+ = 75 mL/min/1.73 sq.m. Chronic Kidney Disease: Less than 60 mL/min/1.73 square meters End Stage Renal Disease: Less than 15 mL/min/1.73 square meters Performed By: #### C BC, GFR, ADIFF, LIPID, TSHR, PHOS, ANEU, BMP ####[address] [place], [place] [address] GFR Non- 61 ml/min/1.73sqm Normal [facility] Comment on above: Result Comment: GFR Population mean for , Non- Americans Ages 20-29 = 116 mL/min/1.73 sq.m. Ages 30-39 = 107 mL/min/1.73 sq.m. Ages 40-49 = 99 mL/min/1.73 sq.m. Ages 50-59 = 93 mL/min/1.73 sq.m. Ages 60-69 = 85 mL/min/1.73 sq.m. Ages 70+ = 75 mL/min/1.73 sq.m. Chronic Kidney Disease: Less than 60 mL/min/1.73 square meters End Stage Renal Disease: Less than 15 mL/min/1.73 square meters Performed By: #### C BC, GFR, ADIFF, LIPID, TSHR, PHOS, ANEU, BMP ####[address] [place], [place] [address] .NEUABSon 08-04-2024 Neutrophil, Absolute 7.6 10 3/mcL Normal 2.3-8.1 [facility] Comment on above: Performed By: #### C BC, GFR, ADIFF, LIPID, TSHR, PHOS, ANEU, BMP #### [address] [place], [place] [address] BMPon 08-04-2024 BUN/Creatinine Ratio 18 ratio Normal 7-27 [facility] Comment on above: Performed By: #### C BC, GFR, ADIFF, LIPID, TSHR, PHOS, ANEU, BMP #### [address] [place], [place] [address] Calcium [Mass/Vol] 10.5 mg/dL High 8.4-10.2 [facility] Comment on above: Performed By: #### C BC, GFR, ADIFF, LIPID, TSHR, PHOS, ANEU, BMP #### [place] [address] Chloride [Moles/Vol] 103 mmol/L Normal 98-107 [facility] Comment on above: Performed By: #### C BC, GFR, ADIFF, LIPID, TSHR, PHOS, ANEU, BMP #### [place] [address] CO2 [Moles/Vol] 33 mmol/L High 23-31 [facility] Comment on above: Performed By: #### C BC, GFR, ADIFF, LIPID, TSHR, PHOS, ANEU, BMP #### [place] [address] Creatinine [Mass/Vol] 0.89 mg/dL Normal 0.55-1.[address] [facility] Comment on above: Result Comment: Test ing performed on Sun-ee[employer] Dimension EXL analyzer using a modified kinetic Victor M technique. Performed By: #### C BC, GFR, ADIFF, LIPID, TSHR, PHOS, ANEU, BMP #### [place] [address] Electrolyte Balance 4.0 mEq/L Normal 4.0-15.0 [facility] Comment on above: Performed By: #### C BC, GFR, ADIFF, LIPID, TSHR, PHOS, ANEU, BMP #### [place] [address] Glucose [Mass/Vol] 149 mg/dL High 83-110 [facility] Comment on above: Performed By: #### C BC, GFR, ADIFF, LIPID, TSHR, PHOS, ANEU, BMP #### [place] [address] Potassium [Moles/Vol] 3.9 mmol/L Normal 3.5-5.[address] [facility] Comment on above: Performed By: #### C BC, GFR, ADIFF, LIPID, TSHR, PHOS, ANEU, BMP #### [address] [address] Sodium [Moles/Vol] 140 mmol/L Normal 136-145 [facility] Comment on above: Performed By: #### C BC, GFR, ADIFF, LIPID, TSHR, PHOS, ANEU, BMP #### [address] [address] Urea nitrogen [Mass/Vol] 16 mg/dL Normal 7-18 [facility] Comment on above: Performed By: #### C BC, GFR, ADIFF, LIPID, TSHR, PHOS, ANEU, BMP #### [address] [address] CBCon 08-04-2024 Erythrocyte distribution width (RBC) [Ratio] 14.0 % Normal 11.5-15.5 [facility] Comment on above: Performed By: #### C BC, GFR, ADIFF, LIPID, TSHR, PHOS, ANEU, BMP #### [address] [address] Hematocrit (Bld) [Volume fraction] 44.7 % Normal 34.0-46.0 [facility] Comment on above: Performed By: #### C BC, GFR, ADIFF, LIPID, TSHR, PHOS, ANEU, BMP #### [address] [address] Hgb 15.0 G/dL Normal 12.0-16.0 [facility] Comment on above: Performed By: #### C BC, GFR, ADIFF, LIPID, TSHR, PHOS, ANEU, BMP #### [address] [address] MCH (RBC) [Entitic mass] 28.7 pg Normal 27.0-33.0 [facility] Comment on above: Performed By: #### C BC, GFR, ADIFF, LIPID, TSHR, PHOS, ANEU, BMP #### [address] [address] MCHC 33.6 G/dL Normal 32.0-36.0 [facility] Comment on above: Performed By: #### C BC, GFR, ADIFF, LIPID, TSHR, PHOS, ANEU, BMP #### [address] [address] MCV (RBC) [Entitic vol] 85.4 fL Normal 80.0-99.0 [facility] Comment on above: Performed By: #### C BC, GFR, ADIFF, LIPID, TSHR, PHOS, ANEU, BMP #### [place] [id number] Platelet 211 10 3/mcL Normal 150-450 [facility] Comment on above: Performed By: #### C BC, GFR, ADIFF, LIPID, TSHR, PHOS, ANEU, BMP #### [place] [address] Platelet mean volume (Bld) [Entitic vol] 7.9 fL Normal 6.6-10.5 [facility] Comment on above: Performed By: #### C BC, GFR, ADIFF, LIPID, TSHR, PHOS, ANEU, BMP #### [place] [id number] RBC 5.23 10 6/mcL Normal 4.10-5.30 [facility] Comment on above: Performed By: #### C BC, GFR, ADIFF, LIPID, TSHR, PHOS, ANEU, BMP #### [place] [id number] WBC 10.5 10 3/mcL Normal 4.5-10.8 [facility] Comment on above: Performed By: #### C BC, GFR, ADIFF, LIPID, TSHR, PHOS, ANEU, BMP #### [place] [address] LABORATORYOrdered By: SYSTEM SYSTEM on 08-04-2024 Basophils (Bld) [#/Vol] 0.1 103/mcL Normal 0.0 - 0.2 10^3/mcL AO Workflow SS Basophils/100 WBC (Bld) 1.2 % Normal 0.0 - 2.5 % AO Workflow SS Calcium [Mass/Vol] 10.5 mg/dL High 8.4 - 10. 2 mg/dL AO ADM SS Chloride [Moles/Vol] 103 mmol/L Normal 98 - 10 7 mmol/L AO ADM SS CO2 [Moles/Vol] 33 mmol/L High 23 - 31 mmol/L AO ADM SS Creatinine [Mass/Vol] 0.89 mg/dL Normal 0.55 - 1.02 mg/dL AO ADM SS Comment on above: Interpretive Data: T esting performed on Siemens Dimension EXL analyzer using a modified kinetic Victor M technique. Electrolyte Balance 4.0 mEq/L Normal 4.0 - 15 .0 mEq/L AO ADM SS Eosinophil, Absolute 0.3 103/mcL Normal 0.0 - 0 .7 10^3/mcL AO Workflow SS Eosinophils/100 WBC (Bld) 2.9 % Normal 0.0 - 7.0 % AO Workflow SS Erythrocyte distribution width (RBC) [Ratio] 14.0 % Normal 11.5 - 15.5 % AO Workflow SS GFR/1.73 sq M.predicted among blacks MDRD (S/P/Bld) [Vol rate/Area] 74 ml/min/1.73sqm Invalid Interpretation Code AO Chemistry S Comment on above: Interpretive Data: GFR Population mean for , Non- Americans Ages 20-29 = 116 mL/min/1.73 sq.m. Ages 30-39 = 107 mL/min/1.73 sq.m. Ages 40-49 = 99 mL/min/1.73 sq.m. Ages 50-59 = 93 mL/min/1.73 sq.m. Ages 60-69 = 85 mL/min/1.73 sq.m. Ages 70+ = 75 mL/min/1.73 sq.m. Chronic Kidney Disease: Less than 60 mL/min/1.73 square meters End Stage Renal Disease: Less than 15 mL/min/1.73 square meters GFR/1.73 sq M.predicted among non-blacks MDRD (S/P/Bld) [Vol rate/Area] 61 ml/min/1.73sqm Invalid Interpretation Code AO Chemistry S Comment on above: Interpretive Data: GFR Population mean for , Non- Americans Ages 20-29 = 116 mL/min/1.73 sq.m. Ages 30-39 = 107 mL/min/1.73 sq.m. Ages 40-49 = 99 mL/min/1.73 sq.m. Ages 50-59 = 93 mL/min/1.73 sq.m. Ages 60-69 = 85 mL/min/1.73 sq.m. Ages 70+ = 75 mL/min/1.73 sq.m. Chronic Kidney Disease: Less than 60 mL/min/1.73 square meters End Stage Renal Disease: Less than 15 mL/min/1.73 square meters Glucose [Mass/Vol] 149 mg/dL High 83 - 110 mg/dL AO ADM SS Hematocrit (Bld) [Volume fraction] 44.7 % Normal 34.0 - 46.0 % AO Workflow SS Hemoglobin (Bld) [Mass/Vol] 15.0 G/dL Normal 12.0 - 16.0 G/dL AO Workflow SS Lymphocytes (Bld) [#/Vol] 1.3 103/mcL Normal 0.9 - 4.3 10^3/mcL AO Workflow SS Lymphocytes/100 WBC (Bld) 12.2 % Low 20.0 - 40.0 % AO Workflow SS MCH (RBC) [Entitic mass] 28.7 pg Normal 27.0 - 33.0 pg AO Workflow SS MCHC 33.6 G/dL Normal 32.0 - 36.0 G/dL AO Workflow SS MCV (RBC) [Entitic vol] 85.4 fL Normal 80.0 - 99.0 fL AO Workflow SS Monocytes (Bld) [#/Vol] 1.2 103/mcL Normal 0.1 - 1.4 10^3/mcL AO Workflow SS Monocytes/100 WBC (Bld) 11.4 % Normal 2.0 - 13.0 % AO Workflow SS Neutrophils (Bld) [#/Vol] 7.6 103/mcL Normal 2.3 - 8.1 10^3/mcL AO Workflow SS Neutrophils/100 WBC (Bld) 72.3 % Normal 50.0 - 75.0 % AO Workflow SS Phosphate [Mass/Vol] 2.5 mg/dL Normal 2.3 - 4 .1 mg/dL AO ADM SS Platelet mean volume (Bld) [Entitic vol] 7.9 fL Normal 6.6 - 10.5 fL AO Workflow SS Platelets (Bld) [#/Vol] 211 103/mcL Normal 150 - 450 10^3/mcL AO Workflow SS Potassium [Moles/Vol] 3.9 mmol/L Normal 3.5 - 5.1 mmol/L AO ADM SS RBC (Bld) [#/Vol] 5.23 106/mcL Normal 4.10 - 5.3 0 10^6/mcL AO Workflow SS Sodium [Moles/Vol] 140 mmol/L Normal 136 - 145 mmol/L AO ADM SS TSH Qn 1.32 m[IU]/L Normal 0.36 - 3.74 mcIU/mL AO ADM SS Urea nitrogen [Mass/Vol] 16 mg/dL Normal 7 - 18 mg/dL AO ADM SS Urea nitrogen/Creatinine [Mass ratio] 18 ratio Normal 7 - 27 ratio AO ADM SS WBC (Bld) [#/Vol] 10.5 103/mcL Normal 4.5 - 10.8 10^3/mcL AO Workflow SS LABORATORYOrdered By: Jan Vila on 08-04-2024 Cholesterol [Mass/Vol] 144 mg/dL Normal 0 - 2 00 mg/dL AO ADM SS Comment on above: Interpretive Data: C holesterol Reference Interval: Less than 200 Desirable 200-239 Borderline high risk 240 and above High risk Cholesterol in HDL [Mass/Vol] 53 mg/dL Normal 40 - 60 mg/dL AO ADM SS Cholesterol in LDL [Mass/Vol] 67 mg/dL Normal 0 - 130 mg/dL AO ADM SS Triglyceride [Mass/Vol] 118 mg/dL Normal 0 - 150 mg/dL AO ADM SS Comment on above: Interpretive Data: T riglyceride Reference Interval: Less than 150 Normal 150-199 Borderline high risk 200-499 High risk 500 or higher Very high risk LIPIDon 08-04-2024 Cholesterol [Mass/Vol] 144 mg/dL Normal 0-200 [facility] Comment on above: Result Comment: Chol esterol Reference Interval: Less than 200 Desirable 200-239 Borderline high risk 240 and above High risk Performed By: #### C BC, GFR, ADIFF, LIPID, TSHR, PHOS, ANEU, BMP ####[address] [place], [place] [address] Cholesterol in HDL [Mass/Vol] 53 mg/dL Normal 40-60 [facility] Comment on above: Performed By: #### C BC, GFR, ADIFF, LIPID, TSHR, PHOS, ANEU, BMP ####[facility] [place], [place] [address] Cholesterol in LDL [Mass/Vol] 67 mg/dL Normal 0-130 [facility] Comment on above: Performed By: #### C BC, GFR, ADIFF, LIPID, TSHR, PHOS, ANEU, BMP ####[facility] [place], [place] [address] Triglyceride [Mass/Vol] 118 mg/dL Normal 0-150 [facility] Comment on above: Result Comment: Trig lyceride Reference Interval: Less than 150 Normal 150-199 Borderline high risk 200-499 High risk 500 or higher Very high risk Performed By: #### C BC, GFR, ADIFF, LIPID, TSHR, PHOS, ANEU, BMP ####[address] [place], [place] [address] PHOSon 08-04-2024 Phosphate [Mass/Vol] 2.5 mg/dL Normal 2.3-4.1 [facility] Comment on above: Performed By: #### C BC, GFR, ADIFF, LIPID, TSHR, PHOS, ANEU, BMP ####[address] [place], [place] [address] TSHRon 08-04-2024 TSH Qn 1.32 m[IU]/L Normal 0.36-3.74 [facility] Comment on above: Performed By: #### C BC, GFR, ADIFF, LIPID, TSHR, PHOS, ANEU, BMP ####[address] [place], [place] [address] Chest 1 View (Portable)on Chest 1 View (Portable) Normal [facility] Emergency Department Summary on 07-23-2024 Emergency Department Summary Normal [facility] Respiratory Cultureon 2023 RESPC Mixed normal respiratory blanca. No Haemophilus, Streptococcus pneumoniae, beta-hemolytic Streptococcus or Staphylococcus aureus isolated. Normal [facility] Comment on above: Performed By: #### M 100.2000, M100.2400 ####[facility] [address] [place], [address] CBC W/Diff, Automatedon 12-3 0-2023 Absolute Neut Normal 2.0-7.7 [facility] Comment on above: Result Comment: Canc elled via OM: Order cancelled - Patient discharged Performed By: #### L 100.0100, L500.4050 ####[facility] [address] [place], [address] HCT Normal 37-47 [facility] Comment on above: Result Comment: Canc elled via OM: Order cancelled - Patient discharged Performed By: #### L 100.0100, L500.4050 ####[facility] [address] [place], [address] HGB Normal 12.0-15.0 [facility] Comment on above: Result Comment: Canc elled via OM: Order cancelled - Patient discharged Performed By: #### L 100.0100, L500.4050 ####[facility] [address] [place], [address] MCH Normal 27.0-32.0 [facility] Comment on above: Result Comment: Canc elled via OM: Order cancelled - Patient discharged Performed By: #### L 100.0100, L500.4050 ####[facility] [address] [place], [address] MCHC Normal 32-36 [facility] Comment on above: Result Comment: Canc elled via OM: Order cancelled - Patient discharged Performed By: #### L 100.0100, L500.4050 ####[facility] [address] [place], [address] MCV Normal 81-99 [facility] Comment on above: Result Comment: Canc elled via OM: Order cancelled - Patient discharged Performed By: #### L 100.0100, L500.4050 ####[facility] [address] [place], [address] NEUT% Normal 47-70 [facility] Comment on above: Result Comment: Canc elled via OM: Order cancelled - Patient discharged Performed By: #### L 100.0100, L500.4050 ####[facility] [address] [place], [address] PLT Normal 150-450 [facility] Comment on above: Result Comment: Canc elled via OM: Order cancelled - Patient discharged Performed By: #### L 100.0100, L500.4050 ####[facility] [address] [place], [address] RBC Normal 4.2-5.4 [facility] Comment on above: Result Comment: Canc elled via OM: Order cancelled - Patient discharged Performed By: #### L 100.0100, L500.4050 ####[facility] [address] [place], [address] RDW CV Normal 11.6-14.6 [facility] Comment on above: Result Comment: Canc elled via OM: Order cancelled - Patient discharged Performed By: #### L 100.0100, L500.4050 ####[facility] [address] [place], [address] RDW SD Normal 35.1-43.9 [facility] Comment on above: Result Comment: Canc elled via OM: Order cancelled - Patient discharged Performed By: #### L 100.0100, L500.4050 ####[facility] [address] [place], [address] WBC Normal 4.4-11.0 [facility] Comment on above: Result Comment: Canc elled via OM: Order cancelled - Patient discharged Performed By: #### L 100.0100, L500.4050 ####[facility] [address] [place], [address] Comprehensive Metabolic Prof ilon 07-21-2024 ALB Normal 3.2-5.0 [facility] Comment on above: Result Comment: Canc elled via OM: Order cancelled - Patient discharged Performed By: #### L 100.0100, L500.4050 ####[facility] [address] [place], [address] ALK P Normal 45-117 [facility] Comment on above: Result Comment: Canc elled via OM: Order cancelled - Patient discharged Performed By: #### L 100.0100, L500.4050 ####[facility] [address] [place], [address] ALT Normal 13-56 [facility] Comment on above: Result Comment: Canc elled via OM: Order cancelled - Patient discharged Performed By: #### L 100.0100, L500.4050 ####[facility] [address] [place], [address] AST Normal 15-37 [facility] Comment on above: Result Comment: Canc elled via OM: Order cancelled - Patient discharged Performed By: #### L 100.0100, L500.4050 ####[facility] [address] [place], [address] BUN Normal 7-18 [facility] Comment on above: Result Comment: Canc elled via OM: Order cancelled - Patient discharged Performed By: #### L 100.0100, L500.4050 ####[facility] [address] [place], [address] BUN/CRE Normal 10-20 [facility] Comment on above: Result Comment: Canc elled via OM: Order cancelled - Patient discharged Performed By: #### L 100.0100, L500.4050 ####[facility] [address] [place], [address] CA,Total Normal 8.5-10.1 [facility] Comment on above: Result Comment: Canc elled via OM: Order cancelled - Patient discharged Performed By: #### L 100.0100, L500.4050 ####[facility] [address] [place], [address] CL Normal 98-107 [facility] Comment on above: Result Comment: Canc elled via OM: Order cancelled - Patient discharged Performed By: #### L 100.0100, L500.4050 ####[facility] [address] [place], [address] CO2 Normal 21.0-32.0 [facility] Comment on above: Result Comment: Canc elled via OM: Order cancelled - Patient discharged Performed By: #### L 100.0100, L500.4050 ####[facility] [address] [place], [address] CREAT,SERUM Normal 0.55-1.02 [facility] Comment on above: Result Comment: Canc elled via OM: Order cancelled - Patient discharged Performed By: #### L 100.0100, L500.4050 ####[facility] [address] [place], [address] EST GFR Normal >60 [facility] Comment on above: Result Comment: Canc elled via OM: Order cancelled - Patient discharged Performed By: #### L 100.0100, L500.4050 ####[facility] [address] [place], [address] EST GFR - AA Normal >60 [facility] Comment on above: Result Comment: Canc elled via OM: Order cancelled - Patient discharged Performed By: #### L 100.0100, L500.4050 ####[facility] [address] [place], [address] GAP Normal 5-15 [facility] Comment on above: Result Comment: Canc elled via OM: Order cancelled - Patient discharged Performed By: #### L 100.0100, L500.4050 ####[facility] [address] [place], [address] GLU Normal 74-106 [facility] Comment on above: Result Comment: Canc elled via OM: Order cancelled - Patient discharged Performed By: #### L 100.0100, L500.4050 ####[facility] [address] [place], [address] Potassium Normal 3.5-5.1 [facility] Comment on above: Result Comment: Canc elled via OM: Order cancelled - Patient discharged Performed By: #### L 100.0100, L500.4050 ####[facility] [address] [place], [address] T BILI Normal 0.20-1.00 [facility] Comment on above: Result Comment: Canc elled via OM: Order cancelled - Patient discharged Performed By: #### L 100.0100, L500.4050 ####[facility] [address] [place], [address] T PROT Normal 6.4-8.2 [facility] Comment on above: Result Comment: Canc elled via OM: Order cancelled - Patient discharged Performed By: #### L 100.0100, L500.4050 ####[facility] [address] [place], [address] Comprehensive Metabolic Profil Normal 136-145 [facility] Comment on above: Result Comment: Canc elled via OM: Order cancelled - Patient discharged Performed By: #### L 100.0100, L500.4050 ####[facility] [address] [place], [address] ALP [Catalytic activity/Vol] Ordered By: Jennifer Jon on 07-20-2024 Serum or plasma alkaline phosphatase measurement 101 U/L 45-117 [facility] ALT [Catalytic activity/Vol] Ordered By: Jennifer Jon on 07-20-2024 Serum or plasma alanine aminotransferase (ALT) measurement 28 U/L 13-56 [facility] Absolute neutrophil countOrd ered By: Jennifer Danay on 07-20-2024 Absolute neutrophil count 9.9 X10^3/uL High 2.0-7.7 [facility] Albumin [Mass/Vol]Ordered By : Jennifer White on 07-20-2024 Serum or plasma albumin measurement (mass/volume) 2.6 g/dL Low 3.2-5.0 [facility] Albumin to globulin ratioOrd ered By: Jennifer White on 07-20-2024 Albumin to globulin ratio 0.7 RATIO Low 0.9-2.4 [facility] Basophil percentageOrdered B y: Jennifer Danay on 07-20-2024 Basophil percentage 0.2 % 0-1 [facility] Bilirubin, totalOrdered By: Jennifer Danay on 07-20-2024 Bilirubin, total 0.20 mg/dL 0.20-1.00 [facility] Blood urea nitrogen (BUN)/cr eatinine ratioOrdered By: Jennifer Danay on 07-20-2024 Blood urea nitrogen (BUN)/creatinine ratio 36.2 RATIO High 10-20 [facility] CBC W/Diff, Automatedon 12 Absolute Lymph 0.56 X10 3/uL Low 0.83-4.51 [facility] Comment on above: Performed By: #### L 500.4050, L100.0100 ####[facility] [address] [place], [address] Absolute Neut 9.9 X10 3/uL High 2.0-7.7 [facility] Comment on above: Performed By: #### L 500.4050, L100.0100 ####[facility] [address] [place], [address] Basophils/100 WBC (Bld) 0.2 % Normal 0-1 [facility] Comment on above: Performed By: #### L 500.4050, L100.0100 ####[facility] [address] [place], [address] Eosinophils/100 WBC (Bld) 0.0 % Normal 0-5 [facility] Comment on above: Performed By: #### L 500.4050, L100.0100 ####[facility] [address] [place], [address] Erythrocyte distribution width (RBC) [Ratio] 13.1 % Normal 11.6-14.6 [facility] Comment on above: Performed By: #### L 500.4050, L100.0100 ####[facility] [address] [place], [address] Hematocrit (Bld) [Volume fraction] 40.0 % Normal 37-47 [facility] Comment on above: Performed By: #### L 500.4050, L100.0100 ####[facility] [address] [place], [address] Hemoglobin (Bld) [Mass/Vol] 12.8 g/dL Normal 12.0-15.0 [facility] Comment on above: Performed By: #### L 500.4050, L100.0100 ####[facility] [address] [place], [address] IG% 0.700 Normal 0.0-0.9 [facility] Comment on above: Result Comment: IG% - Immature Granulocytes (promyelocytes, myelocytes andmetamyelocytes) > 1% indicates that a LEFT SHIFT is Present. Performed By: #### L 500.4050, L100.0100 ####[facility] [address] [place], [address] Lymphocytes/100 WBC (Bld) 5.0 % Low 19-41 [facility] Comment on above: Performed By: #### L 500.4050, L100.0100 ####[facility] [address] [place], [address] MCH (RBC) [Entitic mass] 28.3 pg Normal 27.0-32.0 [facility] Comment on above: Performed By: #### L 500.4050, L100.0100 ####[facility] [address] [place], [address] MCHC (RBC) [Mass/Vol] 32.0 g/dL Normal 32-36 [facility] Comment on above: Performed By: #### L 500.4050, L100.0100 ####[facility] [address] [place], [address] MCV (RBC) [Entitic vol] 88.3 fL Normal 81-99 [facility] Comment on above: Performed By: #### L 500.4050, L100.0100 ####[facility] [address] [place], [address] Monocytes/100 WBC (Bld) 5.7 % Normal 0-10 [facility] Comment on above: Performed By: #### L 500.4050, L100.0100 ####[facility] [address] [place], [address] Neutrophils/100 WBC (Bld) 88.4 % High 47-70 [facility] Comment on above: Performed By: #### L 500.4050, L100.0100 ####[facility] [address] [place], [address] Nucleated RBC (Bld) [#/Vol] 0 10*3/uL Normal 0-5 [facility] Comment on above: Performed By: #### L 500.4050, L100.0100 ####[facility] [address] [place], [address] Platelet mean volume (Bld) [Entitic vol] 10.8 fL Normal 6.2-12.0 [facility] Comment on above: Performed By: #### L 500.4050, L100.0100 ####[facility] [address] [place], [address] Platelets (Bld) [#/Vol] 263 10*3/uL Normal 150-450 [facility] Comment on above: Performed By: #### L 500.4050, L100.0100 ####[facility] [address] [place], [address] RBC (Bld) [#/Vol] 4.53 10*6/uL Normal 4.2-5.4 [facility] Comment on above: Performed By: #### L 500.4050, L100.0100 ####[facility] [address] [place], [address] RDW SD 42.5 fl Normal 35.1-43.9 [facility] Comment on above: Performed By: #### L 500.4050, L100.0100 ####[facility] [address] [place], [address] WBC (Bld) [#/Vol] 11.1 10*3/uL High 4.4-11.0 [facility] Comment on above: Performed By: #### L 500.4050, L100.0100 ####[facility] [address] [place], [address] Calcium [Mass/Vol]Ordered By : Jennifer Jon on 07-20-2024 Serum or plasma calcium measurement (mass/volume) 10.5 mg/dL High 8.5-10.1 [facility] Carbon dioxide measurementOr dered By: Jennifer Jon on 07-20-2024 Carbon dioxide measurement 27.0 mmol/L 21.0-32.0 [facility] Chloride measurementOrdered By: Jennifer Jon on 07-20-2024 Chloride measurement 108 mmol/L High 98-107 [facility] Comprehensive Metabolic Prof ilon 07-20-2024 Albumin [Mass/Vol] 2.6 g/dL Low 3.2-5.0 [facility] Comment on above: Performed By: #### L 500.4050, L100.0100 ####[facility] [address] [place], [address] Albumin/Globulin [Mass ratio] 0.7 {ratio} Low 0.9-2.4 [facility] Comment on above: Performed By: #### L 500.4050, L100.0100 ####[facility] [address] [place], [address] ALK P 101 U/L Normal 45-117 [facility] Comment on above: Performed By: #### L 500.4050, L100.0100 ####[facility] [address] [place], [address] ALT [Catalytic activity/Vol] 28 U/L Normal 13-56 [facility] Comment on above: Performed By: #### L 500.4050, L100.0100 ####[facility] [address] [place], [address] AST [Catalytic activity/Vol] 22 U/L Normal 15-37 [facility] Comment on above: Performed By: #### L 500.4050, L100.0100 ####[facility] [address] [place], [address] Bilirubin [Mass/Vol] 0.20 mg/dL Normal 0.20-1.00 [facility] Comment on above: Result Comment: For patients on eltrombopag therapy, use of Dimension [place] TBIL is not recommended. Performed By: #### L 500.4050, L100.0100 ####[facility] [address] [place], [address] BUN/CRE 36.2 RATIO High 10-20 [facility] Comment on above: Performed By: #### L 500.4050, L100.0100 ####[facility] [address] [place], [address] CA,Total 10.5 mg/dL High 8.5-10.1 [facility] Comment on above: Performed By: #### L 500.4050, L100.0100 ####[facility] [address] [place], [address] Chloride [Moles/Vol] 108 mmol/L High 98-107 [facility] Comment on above: Performed By: #### L 500.4050, L100.0100 ####[facility] [address] [place], [address] CO2 [Moles/Vol] 27.0 mmol/L Normal 21.0-32.0 [facility] Comment on above: Performed By: #### L 500.4050, L100.0100 ####[facility] [address] [place], [address] Creatinine [Mass/Vol] 0.69 mg/dL Normal 0.55-1.02 [facility] Comment on above: Result Comment: The validity of the calculated GFR GFRAA in patients over70 years has not been determined. Clinical correlation isessential. Performed By: #### L 500.4050, L100.0100 ####[facility] [address] [place], [address] ECRCL 50.45 ml/min Normal [facility] Comment on above: Performed By: #### L 500.4050, L100.0100 ####[facility] [address] [place], [address] EST GFR - AA 104 mL/min Normal >60 [facility] Comment on above: Result Comment: Afri can [facility] GFR Calc Performed By: #### L 500.4050, L100.0100 ####[facility] [address] [place], [address] GAP 3 Low 5-15 [facility] Comment on above: Performed By: #### L 500.4050, L100.0100 ####[facility] [address] [place], [address] GFR/1.73 sq M.predicted among non-blacks MDRD (S/P/Bld) [Vol rate/Area] 86 mL/min/{1.73_m2} Normal >60 [facility] Comment on above: Result Comment: Non- GFR Calc Performed By: #### L 500.4050, L100.0100 ####[facility] [address] [place], [address] Globulin (S) [Mass/Vol] 3.5 g/dL Normal 2.2-4.2 [facility] Comment on above: Performed By: #### L 500.4050, L100.0100 ####[facility] [address] [place], [address] Glucose [Mass/Vol] 186 mg/dL High 74-106 [facility] Comment on above: Result Comment: Fast ing Glucose result greater than or equal to 126 mg/dLsuggests DIABETES MELLITUS per A.D.A. criteria. Performed By: #### L 500.4050, L100.0100 ####[facility] [address] [place], [address] Potassium [Moles/Vol] 3.9 mmol/L Normal 3.5-5.1 [facility] Comment on above: Performed By: #### L 500.4050, L100.0100 ####[facility] [address] [place], [address] Sodium [Moles/Vol] 138 mmol/L Normal 136-145 [facility] Comment on above: Performed By: #### L 500.4050, L100.0100 ####[facility] [address] [place], [address] T PROT 6.1 g/dL Low 6.4-8.2 [facility] Comment on above: Performed By: #### L 500.4050, L100.0100 ####[facility] [address] [place], [address] Urea nitrogen [Mass/Vol] 25 mg/dL High 7-18 [facility] Comment on above: Performed By: #### L 500.4050, L100.0100 ####[facility] [address] [place], [address] Creatinine [Mass/Vol]Ordered By: Jennifer Danay on 07-20-2024 Serum or plasma creatinine measurement (mass/volume) 0.69 mg/dL 0.55-1.02 [facility] Discharge Instructionon 06-23 Discharge Instruction Normal [facility] Eosinophil percentageOrdered By: [facility] Danay on 07-20-2024 Eosinophil percentage 0.0 % 0-5 [facility] Erythrocyte distribution wid th (RBC) [Ratio]Ordered By: [facility] Danay on 07-20-2024 Erythrocyte distribution width ratio 13.1 % 11.6-14.6 [facility] Erythrocyte distribution width standard deviation 42.5 fl 35.1-43.9 [facility] Estimated glomerular filtrat ion rate (GFR) AmericanOrdered By: Jennifer Danay on 07-20-2024 Estimated glomerular filtration rate (GFR) 104 mL/min >60 [facility] Estimation of creatinine hernando aranceOrdered By: [facility] Danay on 07-20-2024 Estimation of creatinine clearance 50.45 ml/min [facility] Glomerular filtration rate ( GFR) estimationOrdered By: [facility] Danay on 07-20-2024 Glomerular filtration rate (GFR) estimation 86 mL/min >60 [facility] Glucose measurementOrdered B y: Jennifer Jon on 07-20-2024 Glucose measurement 186 mg/dL High 74-106 [facility] Gram Stainon 07-20-2024 GS Acceptable Specimen? Yes (<25 Epithelial cells per/lpf) Gram Stain 1+ Gram positive cocci Rare Gram negative rods 1+ White Blood Cells No Epithelial cells Normal [facility] Comment on above: Performed By: #### M 100.2000, M100.2400 ####[facility] [address] [place], [address] Hematocrit Auto (Bld) [Volum e fraction]Ordered By: Jennifer Jon on 07-20-2024 Automated blood hematocrit (percentage) 40.0 % 37-47 [facility] Hemoglobin measurementOrdere d By: Jennifer Danay on 07-20-2024 Hemoglobin measurement 12.8 g/dL 12.0-15.[address] [facility] Immature granulocytes/100 WB C Auto (Bld)Ordered By: Jennifer Danay on 07-20-2024 Automated immature granulocyte percentage 0.700 % 0.0-0.9 [facility] Lymphocytes Auto (Unsp spec) [#/Vol]Ordered By: Jennifer Jon on 07-20-2024 Absolute lymphocyte count 0.56 X10^3/uL Low 0.83-4.51 [facility] Lymphocytes/100 WBC Auto (Un sp spec)Ordered By: Jennifer Jon on 07-20-2024 Automated lymphocyte count as percentage of total leukocytes 5.0 % Low 19-41 [facility] MCV (RBC) [Entitic vol]Order ed By: Jennifer Jon on 07-20-2024 MCV (mean corpuscular volume) determination 88.3 fL 81-99 [facility] Mean corpuscular hemoglobin (MCH) determinationOrdered By: Jennifer Danay on 07-20-2024 Mean corpuscular hemoglobin (MCH) determination 28.3 pg 27.0-32.0 [facility] Mean corpuscular hemoglobin concentration (MCHC) determinationOrdered By: Jennifer Danay on 07-20-2024 Mean corpuscular hemoglobin concentration (MCHC) determination 32.0 g/dL 32-36 [facility] Mean platelet volume determi nationOrdered By: Jennifer Danay on 07-20-2024 Mean platelet volume determination 10.8 fl 6.2-12.0 [facility] Monocyte percentageOrdered B y: Jennifer Jon on 07-20-2024 Monocyte percentage 5.7 % 0-10 [facility] Neutrophil percentageOrdered By: Jennifer White on 07-20-2024 Neutrophil percentage 88.4 % High 47-70 [facility] No Panel InformationOrdered By: Jennifer Jon on 07-20-2024 22 U/L 15-37 [facility] Nucleated red blood cell per centageOrdered By: Jennifer Jon on 07-20-2024 Nucleated red blood cell percentage 0 % 0-5 [facility] Phosphoruson 07-20-2024 Phosphate [Mass/Vol] 3.0 mg/dL Normal 2.5-4.9 [facility] Comment on above: Performed By: #### L 501.2300 ####[facility] [address] [place], [address] Phosphorus measurementOrdere d By: Jennifer Jon on 07-20-2024 Phosphorus measurement 3.0 mg/dL 2.5-4.[address] [facility] Platelet countOrdered By: Karen bridget Danya on 07-20-2024 Platelet count 263 K/mm3 150-450 [facility] Potassium measurementOrdered By: Jennifer Danay on 07-20-2024 Potassium measurement 3.9 mmol/L 3.5-5.1 [facility] RBC Auto (Bld) [#/Vol]Ordere d By: Jennifer Danay on 07-20-2024 Automated blood erythrocyte count 4.53 M/mm3 4.2-5.4 [facility] Serum anion gap measurementO rdered By: Jennifer White on 07-20-2024 Serum anion gap measurement 3 Low 5-15 [facility] Serum globulin measurementOr dered By: Jennifer White on 07-20-2024 Serum globulin measurement 3.5 g/dL 2.2-4.2 [facility] Sodium levelOrdered By: Cheu mn White on 07-20-2024 Sodium level 138 mmol/L 136-145 [facility] Total proteinOrdered By: Aut umn White on 07-20-2024 Total protein 6.1 g/dL Low 6.4-8.2 [facility] Urea nitrogen [Mass/Vol]Orde red By: Jennifer White on 07-20-2024 Serum or plasma urea nitrogen measurement (mass/volume) 25 mg/dL High 7-18 [facility] White blood cell (WBC) count Ordered By: Jennifer White on 07-20-2024 White blood cell (WBC) count 11.1 K/mm3 High 4.4-11.0 [facility] CBC W/Diff, Automatedon 12 Absolute Lymph 0.38 X10 3/uL Low 0.83-4.51 [facility] Comment on above: Performed By: #### L 100.0100 ####[facility] [address] [place], [address] Absolute Neut 15.0 X10 3/uL High 2.0-7.7 [facility] Comment on above: Performed By: #### L 100.0100 ####[facility] [address] [place], [address] Basophils/100 WBC (Bld) 0.1 % Normal 0-1 [facility] Comment on above: Performed By: #### L 100.0100 ####[facility] [address] [place], [address] Eosinophils/100 WBC (Bld) 0.0 % Normal 0-5 [facility] Comment on above: Performed By: #### L 100.0100 ####[facility] [address] [place], [address] Erythrocyte distribution width (RBC) [Ratio] 13.1 % Normal 11.6-14.6 [facility] Comment on above: Performed By: #### L 100.0100 ####[facility] [address] [place], [address] Hematocrit (Bld) [Volume fraction] 41.9 % Normal 37-47 [facility] Comment on above: Performed By: #### L 100.0100 ####[facility] [address] [place], [address] Hemoglobin (Bld) [Mass/Vol] 13.2 g/dL Normal 12.0-15.0 [facility] Comment on above: Performed By: #### L 100.0100 ####[facility] [address] [place], [address] IG% 0.400 Normal 0.0-0.9 [facility] Comment on above: Result Comment: IG% - Immature Granulocytes (promyelocytes, myelocytes andmetamyelocytes) > 1% indicates that a LEFT SHIFT is Present. Performed By: #### L 100.0100 ####[facility] [address] [place], [address] Lymphocytes/100 WBC (Bld) 2.4 % Low 19-41 [facility] Comment on above: Performed By: #### L 100.0100 ####[facility] [address] [place], [address] MCH (RBC) [Entitic mass] 28.2 pg Normal 27.0-32.0 [facility] Comment on above: Performed By: #### L 100.0100 ####[facility] [address] [place], [address] MCHC (RBC) [Mass/Vol] 31.5 g/dL Low 32-36 [facility] Comment on above: Performed By: #### L 100.0100 ####[facility] [address] [place], [address] MCV (RBC) [Entitic vol] 89.5 fL Normal 81-99 [facility] Comment on above: Performed By: #### L 100.0100 ####[facility] [address] [place], [address] Monocytes/100 WBC (Bld) 2.4 % Normal 0-10 [facility] Comment on above: Performed By: #### L 100.0100 ####[facility] [address] [place], [address] Neutrophils/100 WBC (Bld) 94.7 % High 47-70 [facility] Comment on above: Performed By: #### L 100.0100 ####[facility] [address] [place], [address] Nucleated RBC (Bld) [#/Vol] 0 10*3/uL Normal 0-5 [facility] Comment on above: Performed By: #### L 100.0100 ####[facility] [address] [place], [address] Platelet mean volume (Bld) [Entitic vol] 10.6 fL Normal 6.2-12.0 [facility] Comment on above: Performed By: #### L 100.0100 ####[facility] [address] [place], [address] Platelets (Bld) [#/Vol] 245 10*3/uL Normal 150-450 [facility] Comment on above: Performed By: #### L 100.0100 ####[facility] [address] [place], [address] RBC (Bld) [#/Vol] 4.68 10*6/uL Normal 4.2-5.4 [facility] Comment on above: Performed By: #### L 100.0100 ####[facility] [address] [place], [address] RDW SD 42.6 fl Normal 35.1-43.9 [facility] Comment on above: Performed By: #### L 100.0100 ####[facility] [address] [place], [address] WBC (Bld) [#/Vol] 15.9 10*3/uL High 4.4-11.0 [facility] Comment on above: Performed By: #### L 100.0100 ####[facility] [address] [place], [address] Chest PA and Lateralon 07-19 Chest PA and Lateral Normal [facility] Comprehensive Metabolic Prof ilon 07-19-2024 Albumin [Mass/Vol] 2.6 g/dL Low 3.2-5.0 [facility] Comment on above: Performed By: #### L 501.5200, L501.2300, L500.4050 ####[facility] [address] [place], [address] Albumin/Globulin [Mass ratio] 0.7 {ratio} Low 0.9-2.4 [facility] Comment on above: Performed By: #### L 501.5200, L501.2300, L500.4050 ####[facility] [address] [place], [address] ALK P 104 U/L Normal 45-117 [facility] Comment on above: Performed By: #### L 501.5200, L501.2300, L500.4050 ####[facility] [address] [place], [address] ALT [Catalytic activity/Vol] 18 U/L Normal 13-56 [facility] Comment on above: Performed By: #### L 501.5200, L501.2300, L500.4050 ####[facility] [address] [place], [address] AST [Catalytic activity/Vol] 20 U/L Normal 15-37 [facility] Comment on above: Performed By: #### L 501.5200, L501.2300, L500.4050 ####[facility] [address] [place], [address] Bilirubin [Mass/Vol] 0.40 mg/dL Normal 0.20-1.00 [facility] Comment on above: Result Comment: For patients on eltrombopag therapy, use of Dimension [place] TBIL is not recommended. Performed By: #### L 501.5200, L501.2300, L500.4050 ####[facility] [address] [place], [address] BUN/CRE 26.8 RATIO High 10-20 [facility] Comment on above: Performed By: #### L 501.5200, L501.2300, L500.4050 ####[facility] [address] [place], [address] CA,Total 10.2 mg/dL High 8.5-10.1 [facility] Comment on above: Performed By: #### L 501.5200, L501.2300, L500.4050 ####[facility] [address] [place], [address] Chloride [Moles/Vol] 110 mmol/L High 98-107 [facility] Comment on above: Performed By: #### L 501.5200, L501.2300, L500.4050 ####[facility] [address] [place], [address] CO2 [Moles/Vol] 23.0 mmol/L Normal 21.0-32.0 [facility] Comment on above: Performed By: #### L 501.5200, L501.2300, L500.4050 ####[facility] [address] [place], [address] Creatinine [Mass/Vol] 0.78 mg/dL Normal 0.55-1.02 [facility] Comment on above: Result Comment: The validity of the calculated GFR GFRAA in patients over70 years has not been determined. Clinical correlation isessential. Performed By: #### L 501.5200, L501.2300, L500.4050 ####[facility] [address] [place], [address] ECRCL 49.63 ml/min Normal [facility] Comment on above: Performed By: #### L 501.5200, L501.2300, L500.4050 ####[facility] [address] [place], [address] EST GFR - AA 90 mL/min Normal >60 [facility] Comment on above: Result Comment: Afri can [facility] GFR Calc Performed By: #### L 501.5200, L501.2300, L500.4050 ####[facility] [address] [place], [address] GAP 6 Normal 5-15 [facility] Comment on above: Performed By: #### L 501.5200, L501.2300, L500.4050 ####[facility] [address] [place], [address] GFR/1.73 sq M.predicted among non-blacks MDRD (S/P/Bld) [Vol rate/Area] 75 mL/min/{1.73_m2} Normal >60 [facility] Comment on above: Result Comment: Non- GFR Calc Performed By: #### L 501.5200, L501.2300, L500.4050 ####[facility] [address] [place], [address] Globulin (S) [Mass/Vol] 3.6 g/dL Normal 2.2-4.2 [facility] Comment on above: Performed By: #### L 501.5200, L501.2300, L500.4050 ####[facility] [address] [place], [address] Glucose [Mass/Vol] 184 mg/dL High 74-106 [facility] Comment on above: Result Comment: Fast ing Glucose result greater than or equal to 126 mg/dLsuggests DIABETES MELLITUS per A.D.A. criteria. Performed By: #### L 501.5200, L501.2300, L500.4050 ####[facility] [address] [place], [address] Potassium [Moles/Vol] 4.3 mmol/L Normal 3.5-5.1 [facility] Comment on above: Performed By: #### L 501.5200, L501.2300, L500.4050 ####[facility] [address] [place], [address] Sodium [Moles/Vol] 139 mmol/L Normal 136-145 [facility] Comment on above: Performed By: #### L 501.5200, L501.2300, L500.4050 ####[facility] [address] [place], [address] T PROT 6.2 g/dL Low 6.4-8.2 [facility] Comment on above: Performed By: #### L 501.5200, L501.2300, L500.4050 ####[facility] [address] [place], [address] Urea nitrogen [Mass/Vol] 21 mg/dL High - [facility] Comment on above: Performed By: #### L 501.5200, L501.2300, L500.4050 ####[facility] [address] [place], [address] Magnesiumon 07-19-2024 Magnesium [Mass/Vol] 2.2 mg/dL Normal 1.6-2.6 [facility] Comment on above: Performed By: #### L 501.5200, L501.2300, L500.4050 ####[facility] [address] [place], [address] Magnesium measurementOrdered By: Niall So on 07-19-2024 Magnesium measurement 2.2 mg/dL 1.6-2.6 [facility] Phosphoruson 07-19-2024 Phosphate [Mass/Vol] 2.4 mg/dL Low 2.5-4.9 [facility] Comment on above: Performed By: #### L 501.5200, L501.2300, L500.4050 ####[facility] [address] [place], [address] CBC W/Diff, Automatedon - Absolute Lymph 1.48 X10 3/uL Normal 0.83-4.51 [facility] Comment on above: Performed By: #### L 500.4050, L100.0100, L501.2300, L501.5200 ####[facility] [address] [place], [address] Absolute Neut 10.2 X10 3/uL High 2.0-7.7 [facility] Comment on above: Performed By: #### L 500.4050, L100.0100, L501.2300, L501.5200 ####[facility] [address] [place], [address] Basophils/100 WBC (Bld) 0.5 % Normal 0-1 [facility] Comment on above: Performed By: #### L 500.4050, L100.0100, L501.2300, L501.5200 ####[facility] [address] [place], [address] Eosinophils/100 WBC (Bld) 2.3 % Normal 0-5 [facility] Comment on above: Performed By: #### L 500.4050, L100.0100, L501.2300, L501.5200 ####[facility] [address] [place], [address] Erythrocyte distribution width (RBC) [Ratio] 13.2 % Normal 11.6-14.6 [facility] Comment on above: Performed By: #### L 500.4050, L100.0100, L501.2300, L501.5200 ####[facility] [address] [place], [address] Hematocrit (Bld) [Volume fraction] 41.3 % Normal 37-47 [facility] Comment on above: Performed By: #### L 500.4050, L100.0100, L501.2300, L501.5200 ####[facility] [address] [place], [address] Hemoglobin (Bld) [Mass/Vol] 13.2 g/dL Normal 12.0-15.0 [facility] Comment on above: Performed By: #### L 500.4050, L100.0100, L501.2300, L501.5200 ####[facility] [address] [place], [address] IG% 0.300 Normal 0.0-0.9 [facility] Comment on above: Result Comment: IG% - Immature Granulocytes (promyelocytes, myelocytes andmetamyelocytes) > 1% indicates that a LEFT SHIFT is Present. Performed By: #### L 500.4050, L100.0100, L501.2300, L501.5200 ####[facility] [address] [place], [address] Lymphocytes/100 WBC (Bld) 11.4 % Low 19-41 [facility] Comment on above: Performed By: #### L 500.4050, L100.0100, L501.2300, L501.5200 ####[facility] [address] [place], [address] MCH (RBC) [Entitic mass] 28.1 pg Normal 27.0-32.0 [facility] Comment on above: Performed By: #### L 500.4050, L100.0100, L501.2300, L501.5200 ####[facility] [address] [place], [address] MCHC (RBC) [Mass/Vol] 32.0 g/dL Normal 32-36 [facility] Comment on above: Performed By: #### L 500.4050, L100.0100, L501.2300, L501.5200 ####[facility] [address] [place], [address] MCV (RBC) [Entitic vol] 88.1 fL Normal 81-99 [facility] Comment on above: Performed By: #### L 500.4050, L100.0100, L501.2300, L501.5200 ####[facility] [address] [place], [address] Monocytes/100 WBC (Bld) 7.5 % Normal 0-10 [facility] Comment on above: Performed By: #### L 500.4050, L100.0100, L501.2300, L501.5200 ####[facility] [address] [place], [address] Neutrophils/100 WBC (Bld) 78.0 % High 47-70 [facility] Comment on above: Performed By: #### L 500.4050, L100.0100, L501.2300, L501.5200 ####[facility] [address] [place], [address] Nucleated RBC (Bld) [#/Vol] 0 10*3/uL Normal 0-5 [facility] Comment on above: Performed By: #### L 500.4050, L100.0100, L501.2300, L501.5200 ####[facility] [address] [place], [address] Platelet mean volume (Bld) [Entitic vol] 10.2 fL Normal 6.2-12.0 [facility] Comment on above: Performed By: #### L 500.4050, L100.0100, L501.2300, L501.5200 ####[facility] [address] [place], [address] Platelets (Bld) [#/Vol] 244 10*3/uL Normal 150-450 [facility] Comment on above: Performed By: #### L 500.4050, L100.0100, L501.2300, L501.5200 ####[facility] [address] [place], [address] RBC (Bld) [#/Vol] 4.69 10*6/uL Normal 4.2-5.4 [facility] Comment on above: Performed By: #### L 500.4050, L100.0100, L501.2300, L501.5200 ####[facility] [address] [place], [address] RDW SD 42.7 fl Normal 35.1-43.9 [facility] Comment on above: Performed By: #### L 500.4050, L100.0100, L501.2300, L501.5200 ####[facility] [address] [place], [address] WBC (Bld) [#/Vol] 13.0 10*3/uL High 4.4-11.0 [facility] Comment on above: Performed By: #### L 500.4050, L100.0100, L501.2300, L501.5200 ####[facility] [address] [place], [address] Comprehensive Metabolic Prof [facility] 07-18-2024 Albumin [Mass/Vol] 2.8 g/dL Low 3.2-5.0 [facility] Comment on above: Performed By: #### L 500.4050, L100.0100, L501.2300, L501.5200 ####[facility] [address] [place], [address] Albumin/Globulin [Mass ratio] 0.8 {ratio} Low 0.9-2.4 [facility] Comment on above: Performed By: #### L 500.4050, L100.0100, L501.2300, L501.5200 ####[facility] [address] [place], [address] ALK P 102 U/L Normal 45-117 [facility] Comment on above: Performed By: #### L 500.4050, L100.0100, L501.2300, L501.5200 ####[facility] [address] [place], [address] ALT [Catalytic activity/Vol] 17 U/L Normal 13-56 [facility] Comment on above: Performed By: #### L 500.4050, L100.0100, L501.2300, L501.5200 ####[facility] [address] [place], [address] AST [Catalytic activity/Vol] 17 U/L Normal 15-37 [facility] Comment on above: Performed By: #### L 500.4050, L100.0100, L501.2300, L501.5200 ####[facility] [address] [place], [address] Bilirubin [Mass/Vol] 0.80 mg/dL Normal 0.20-1.00 [facility] Comment on above: Result Comment: For patients on eltrombopag therapy, use of Dimension [place] TBIL is not recommended. Performed By: #### L 500.4050, L100.0100, L501.2300, L501.5200 ####[facility] [address] [place], [address] BUN/CRE 24.3 RATIO High 10-20 [facility] Comment on above: Performed By: #### L 500.4050, L100.0100, L501.2300, L501.5200 ####[facility] [address] [place], [address] CA,Total 10.0 mg/dL Normal 8.5-10.1 [facility] Comment on above: Performed By: #### L 500.4050, L100.0100, L501.2300, L501.5200 ####[facility] [address] [place], [address] Chloride [Moles/Vol] 106 mmol/L Normal 98-107 [facility] Comment on above: Performed By: #### L 500.4050, L100.0100, L501.2300, L501.5200 ####[facility] [address] [place], [address] CO2 [Moles/Vol] 28.0 mmol/L Normal 21.0-32.0 [facility] Comment on above: Performed By: #### L 500.4050, L100.0100, L501.2300, L501.5200 ####[facility] [address] [place], [address] Creatinine [Mass/Vol] 0.82 mg/dL Normal 0.55-1.02 [facility] Comment on above: Result Comment: The validity of the calculated GFR GFRAA in patients over70 years has not been determined. Clinical correlation isessential. Performed By: #### L 500.4050, L100.0100, L501.2300, L501.5200 ####[facility] [address] [place], [address] ECRCL 48.41 ml/min Normal [facility] Comment on above: Performed By: #### L 500.4050, L100.0100, L501.2300, L501.5200 ####[facility] [address] [place], [address] EST GFR - AA 85 mL/min Normal >60 [facility] Comment on above: Result Comment: Afri can [facility] GFR Calc Performed By: #### L 500.4050, L100.0100, L501.2300, L501.5200 ####[facility] [address] [place], [address] GAP 5 Normal 5-15 [facility] Comment on above: Performed By: #### L 500.4050, L100.0100, L501.2300, L501.5200 ####[facility] [address] [place], [address] GFR/1.73 sq M.predicted among non-blacks MDRD (S/P/Bld) [Vol rate/Area] 71 mL/min/{1.73_m2} Normal >60 [facility] Comment on above: Result Comment: Non- GFR Calc Performed By: #### L 500.4050, L100.0100, L501.2300, L501.5200 ####[facility] [address] [place], [address] Globulin (S) [Mass/Vol] 3.3 g/dL Normal 2.2-4.2 [facility] Comment on above: Performed By: #### L 500.4050, L100.0100, L501.2300, L501.5200 ####[facility] [address] [place], [address] Glucose [Mass/Vol] 109 mg/dL High 74-106 [facility] Comment on above: Result Comment: Fast ing Glucose result from 100 to 125 mg/dLsuggests IMPAIRED HOMEOSTASIS per A.D.A. criteria. Performed By: #### L 500.4050, L100.0100, L501.2300, L501.5200 ####[facility] [address] [place], [address] Potassium [Moles/Vol] 3.4 mmol/L Low 3.5-5.1 [facility] Comment on above: Performed By: #### L 500.4050, L100.0100, L501.2300, L501.5200 ####[facility] [address] [place], [address] Sodium [Moles/Vol] 139 mmol/L Normal 136-145 [facility] Comment on above: Performed By: #### L 500.4050, L100.0100, L501.2300, L501.5200 ####[facility] [address] [place], [address] T PROT 6.1 g/dL Low 6.4-8.2 [facility] Comment on above: Performed By: #### L 500.4050, L100.0100, L501.2300, L501.5200 ####[facility] [address] [place], [address] Urea nitrogen [Mass/Vol] 20 mg/dL High 7-18 [facility] Comment on above: Performed By: #### L 500.4050, L100.0100, L501.2300, L501.5200 ####[facility] [address] [place], [address] HIP, UNI W/ Pelvis 2-3 Views on 07-18-2024 HIP, UNI W/ Pelvis 2-3 Views Normal [facility] Magnesiumon 07-18-2024 Magnesium [Mass/Vol] 2.1 mg/dL Normal 1.6-2.6 [facility] Comment on above: Performed By: #### L 500.4050, L100.0100, L501.2300, L501.5200 ####[facility] [address] [place], [address] Phosphoruson 07-18-2024 Phosphate [Mass/Vol] 3.1 mg/dL Normal 2.5-4.9 [facility] Comment on above: Performed By: #### L 500.4050, L100.0100, L501.2300, L501.5200 ####[facility] [address] [place], [address] Arterial patency Wrist arter y --pre arterial punctureOrdered By: Niall So on 07-17-2024 Assessment of wrist artery patency prior to arterial puncture Positive [facility] Base excess Calc (BldV) [Mol es/Vol]Ordered By: Niall So on 07-17-2024 Blood base excess determination 1 mmol/L -2-2 [facility] Basic Metabolic Profile (BMP )on 07-17-2024 BUN/CRE 13.5 RATIO Normal 10-20 [facility] Comment on above: Performed By: #### L 500.2500, L100.0100 ####[facility] [address] [place], [address] CA,Total 10.7 mg/dL High 8.5-10.1 [facility] Comment on above: Performed By: #### L 500.2500, L100.0100 ####[facility] [address] [place], [address] Chloride [Moles/Vol] 104 mmol/L Normal 98-107 [facility] Comment on above: Performed By: #### L 500.2500, L100.0100 ####[facility] [address] [place], [address] CO2 [Moles/Vol] 29.0 mmol/L Normal 21.0-32.0 [facility] Comment on above: Performed By: #### L 500.2500, L100.0100 ####[facility] [address] [place], [address] Creatinine [Mass/Vol] 1.26 mg/dL High 0.55-1.02 [facility] Comment on above: Result Comment: The validity of the calculated GFR GFRAA in patients over70 years has not been determined. Clinical correlation isessential. Performed By: #### L 500.2500, L100.0100 ####[facility] [address] [place], [address] ECRCL 29.68 ml/min Normal [facility] Comment on above: Performed By: #### L 500.2500, L100.0100 ####[facility] [address] [place], [address] EST GFR - AA 52 mL/min Low >60 [facility] Comment on above: Result Comment: Afri can [facility] GFR Calc Performed By: #### L 500.2500, L100.0100 ####[facility] [address] [place], [address] GAP 8 Normal 5-15 [facility] Comment on above: Performed By: #### L 500.2500, L100.0100 ####[facility] [address] [place], [address] GFR/1.73 sq M.predicted among non-blacks MDRD (S/P/Bld) [Vol rate/Area] 43 mL/min/{1.73_m2} Low >60 [facility] Comment on above: Result Comment: Non- GFR Calc Performed By: #### L 500.2500, L100.0100 ####[facility] [address] [place], [address] Glucose [Mass/Vol] 121 mg/dL High 74-106 [facility] Comment on above: Result Comment: Fast ing Glucose result from 100 to 125 mg/dLsuggests IMPAIRED HOMEOSTASIS per A.D.A. criteria. Performed By: #### L 500.2500, L100.0100 ####[facility] [address] [place], [address] Potassium [Moles/Vol] 3.5 mmol/L Normal 3.5-5.1 [facility] Comment on above: Performed By: #### L 500.2500, L100.0100 ####[facility] [address] [place], [address] Sodium [Moles/Vol] 141 mmol/L Normal 136-145 [facility] Comment on above: Performed By: #### L 500.2500, L100.0100 ####[facility] [address] [place], [address] Urea nitrogen [Mass/Vol] 17 mg/dL Normal 7-18 [facility] Comment on above: Performed By: #### L 500.2500, L100.0100 ####[facility] [address] [place], [address] Blood Gases by CPSon 12-26-2 024 ENRICO TEST Positive Normal [facility] Comment on above: Performed By: #### L 9000.0800 ####[facility] [address] [place], [address] Base excess Calc (Bld) [Moles/Vol] 1 mmol/L Normal -2 to +2 [facility] Comment on above: Performed By: #### L 9000.0800 ####[facility] [address] [place], [address] Blood Gas Type ART Normal [facility] Comment on above: Performed By: #### L 9000.0800 ####[facility] [address] [place], [address] CO2 [Moles/Vol] 26 mmol/L Normal [facility] Comment on above: Performed By: #### L 9000.0800 ####[facility] [address] [place], [address] FI02 2.0 Normal [facility] Comment on above: Performed By: #### L 9000.0800 ####[facility] [address] [place], [address] HCO3 (Bld) [Moles/Vol] 24.9 mmol/L Normal 22-26 [facility] Comment on above: Performed By: #### L 9000.0800 ####[facility] [address] [place], [address] Mode Not entered Normal [facility] Comment on above: Performed By: #### L 9000.0800 ####[facility] [address] [place], [address] O2 Delivery Dev Cannula Normal [facility] Comment on above: Performed By: #### L 9000.0800 ####[facility] [address] [place], [address] pCO2 38.1 mmHg Normal 35-45 [facility] Comment on above: Performed By: #### L 9000.0800 ####[facility] [address] [place], [address] pH (Bld) 7.42 [pH] Normal 7.35-7.45 [facility] Comment on above: Performed By: #### L 9000.0800 ####[facility] [address] [place], [address] PO2 131 mmHG High 75-100 [facility] Comment on above: Performed By: #### L 9000.0800 ####[facility] [address] [place], [address] SITE L Radial Normal [facility] Comment on above: Performed By: #### L 9000.0800 ####[facility] [address] [place], [address] SO2 99 Normal 95-99 [facility] Comment on above: Performed By: #### L 9000.0800 ####[facility] [address] [place], [address] Blood bicarbonate measuremen tOrdered By: Niall So on 07-17-2024 Blood bicarbonate measurement 24.9 mmol/L [facility] CBC W/Diff, Automatedon 12-2 Absolute Lymph 1.39 X10 3/uL Normal 0.83-4.51 [facility] Comment on above: Performed By: #### L 500.2500, L100.0100 ####[facility] [address] [place], [address] Absolute Neut 10.5 X10 3/uL High 2.0-7.7 [facility] Comment on above: Performed By: #### L 500.2500, L100.0100 ####[facility] [address] [place], [address] Basophils/100 WBC (Bld) 0.6 % Normal 0-1 [facility] Comment on above: Performed By: #### L 500.2500, L100.0100 ####[facility] [address] [place], [address] Eosinophils/100 WBC (Bld) 2.1 % Normal 0-5 [facility] Comment on above: Performed By: #### L 500.2500, L100.0100 ####[facility] [address] [place], [address] Erythrocyte distribution width (RBC) [Ratio] 13.2 % Normal 11.6-14.6 [facility] Comment on above: Performed By: #### L 500.2500, L100.0100 ####[facility] [address] [place], [address] Hematocrit (Bld) [Volume fraction] 47.7 % High 37-47 [facility] Comment on above: Performed By: #### L 500.2500, L100.0100 ####[facility] [address] [place], [address] Hemoglobin (Bld) [Mass/Vol] 15.1 g/dL High 12.0-15.0 [facility] Comment on above: Performed By: #### L 500.2500, L100.0100 ####[facility] [address] [place], [address] IG% 0.500 Normal 0.0-0.9 [facility] Comment on above: Result Comment: IG% - Immature Granulocytes (promyelocytes, myelocytes andmetamyelocytes) > 1% indicates that a LEFT SHIFT is Present. Performed By: #### L 500.2500, L100.0100 ####[facility] [address] [place], [address] Lymphocytes/100 WBC (Bld) 10.4 % Low 19-41 [facility] Comment on above: Performed By: #### L 500.2500, L100.0100 ####[facility] [address] [place], [address] MCH (RBC) [Entitic mass] 28.3 pg Normal 27.0-32.0 [facility] Comment on above: Performed By: #### L 500.2500, L100.0100 ####[facility] [address] [place], [address] MCHC (RBC) [Mass/Vol] 31.7 g/dL Low 32-36 [facility] Comment on above: Performed By: #### L 500.2500, L100.0100 ####[facility] [address] [place], [address] MCV (RBC) [Entitic vol] 89.5 fL Normal 81-99 [facility] Comment on above: Performed By: #### L 500.2500, L100.0100 ####[facility] [address] [place], [address] Monocytes/100 WBC (Bld) 7.6 % Normal 0-10 [facility] Comment on above: Performed By: #### L 500.2500, L100.0100 ####[facility] [address] [place], [address] Neutrophils/100 WBC (Bld) 78.8 % High 47-70 [facility] Comment on above: Performed By: #### L 500.2500, L100.0100 ####[facility] [address] [place], [address] Nucleated RBC (Bld) [#/Vol] 0 10*3/uL Normal 0-5 [facility] Comment on above: Performed By: #### L 500.2500, L100.0100 ####[facility] [address] [place], [address] Platelet mean volume (Bld) [Entitic vol] 10.8 fL Normal 6.2-12.0 [facility] Comment on above: Performed By: #### L 500.2500, L100.0100 ####[facility] [address] [place], [address] Platelets (Bld) [#/Vol] 307 10*3/uL Normal 150-450 [facility] Comment on above: Performed By: #### L 500.2500, L100.0100 ####[facility] [address] [place], [address] RBC (Bld) [#/Vol] 5.33 10*6/uL Normal 4.2-5.4 [facility] Comment on above: Performed By: #### L 500.2500, L100.0100 ####[facility] [address] [place], [address] RDW SD 43.3 fl Normal 35.1-43.9 [facility] Comment on above: Performed By: #### L 500.2500, L100.0100 ####[facility] [address] [place], [address] WBC (Bld) [#/Vol] 13.4 10*3/uL High 4.4-11.0 [facility] Comment on above: Performed By: #### L 500.2500, L100.0100 ####[facility] [address] [place], [address] Chest PA and Lateralon 07-17 Chest PA and Lateral Normal [facility] Determination of fraction of inspired oxygenOrdered By: Niall So on 07-17-2024 Determination of fraction of inspired oxygen 2.0 [facility] Echo Complete W/ Contraston 07-17-2024 Echo Complete W/ Contrast Normal [facility] Emergency Department Summary on 07-17-2024 Emergency Department Summary Normal [facility] H AND P Exam - Hospitaliston 07-17-2024 H&P Exam - Hospitalist Normal [facility] Influenza virus A and B and SARS-CoV-2 (COVID-19) and Respiratory syncytial virus RNAOrdered By: Apple Lee on 07-17-2024 Influenza virus A and B and SARS-CoV-2 (COVID-19) and Respiratory syncytial virus RNA Influenzae A Abnormal [facility] M100.678on 07-17-2024 M100.678 Normal [facility] Comment on above: Performed By: #### M 100.678 ####[facility] [address] [place], [address] No Panel InformationOrdered By: Niall So on 07-17-2024 ART [facility] L Radial [facility] Not entered [facility] Cannula [facility] Oxygen saturation measuremen tOrdered By: Niall So on 07-17-2024 Oxygen saturation measurement 99 % 95-99 [facility] Partial pressure of carbon d ioxide measurementOrdered By: Niall So on 07-17-2024 Partial pressure of carbon dioxide measurement 38.1 mmHg 35-45 [facility] Partial pressure of oxygen m easurementOrdered By: Niall So on 07-17-2024 Partial pressure of oxygen measurement 131 mmHG High 75-100 [facility] TSH QnOrdered By: Niall naylor on 07-17-2024 Serum or plasma thyroid stimulating hormone (TSH) measurement (units/volume) 2.040 uIU/mL 0.358-3.740 [facility] Thyroid Stim Hormone (TSH)on 07-17-2024 TSH 2.040 uIU/mL Normal 0.358-3.740 [facility] Comment on above: Performed By: #### L 501.9520 ####[facility] [address] [place], [address] Total carbon dioxide measure mentOrdered By: Niall So on 07-17-2024 Total carbon dioxide measurement 26 mmol/L [facility] pH (Unsp spec)Ordered By: Bob So on 07-17-2024 Measurement, pH 7.42 7.35-7.45 [facility] .Auto Diffon 05-08-2024 Basophil, Absolute 0.1 10 3/mcL Normal 0.0-0.3 [facility] Comment on above: Performed By: #### G FR, CBC, ANEU, ADIFF, BMP #### [address] [address] Basophils/100 WBC (Bld) 0.9 % Normal 0.0-2.5 [facility] Comment on above: Performed By: #### G FR, CBC, ANEU, ADIFF, BMP #### [address] [address] Eosinophil, Absolute 0.3 10 3/mcL Normal 0.0-0.7 [facility] Comment on above: Performed By: #### G FR, CBC, ANEU, ADIFF, BMP #### [address] [address] Eosinophils/100 WBC (Bld) 3.5 % Normal 0.0-6.0 [facility] Comment on above: Performed By: #### G FR, CBC, ANEU, ADIFF, BMP #### [address] [address] Lymphocyte, Absolute 1.3 10 3/mcL Normal 0.9-4.3 [facility] Comment on above: Performed By: #### G FR, CBC, ANEU, ADIFF, BMP #### [address] [address] Lymphocytes/100 WBC (Bld) 16.8 % Low 20.0-40.0 [facility] Comment on above: Performed By: #### G FR, CBC, ANEU, ADIFF, BMP #### [address] [address] Monocyte, Absolute 0.7 10 3/mcL Normal 0.1-1.4 [facility] Comment on above: Performed By: #### G FR, CBC, ANEU, ADIFF, BMP #### [address] [address] Monocytes/100 WBC (Bld) 9.4 % Normal 2.0-13.0 [facility] Comment on above: Performed By: #### G FR, CBC, ANEU, ADIFF, BMP #### [address] [address] Neutrophils/100 WBC (Bld) 69.4 % Normal 50.0-75.0 [facility] Comment on above: Performed By: #### G FR, CBC, ANEU, ADIFF, BMP #### [address] [address] .GFRon 05-08-2024 GFR >60 [facility] Comment on above: Result Comment: GFR Population mean for , Non- Americans Ages 20-29 = 116 mL/min/1.73 sq.m. Ages 30-39 = 107 mL/min/1.73 sq.m. Ages 40-49 = 99 mL/min/1.73 sq.m. Ages 50-59 = 93 mL/min/1.73 sq.m. Ages 60-69 = 85 mL/min/1.73 sq.m. Ages 70+ = 75 mL/min/1.73 sq.m. Chronic Kidney Disease: Less than 60 mL/min/1.73 square meters End Stage Renal Disease: Less than 15 mL/min/1.73 square meters Performed By: #### G FR, CBC, ANEU, ADIFF, BMP #### [address] [address] GFR Non- >60 [facility] Comment on above: Result Comment: GFR Population mean for , Non- Americans Ages 20-29 = 116 mL/min/1.73 sq.m. Ages 30-39 = 107 mL/min/1.73 sq.m. Ages 40-49 = 99 mL/min/1.73 sq.m. Ages 50-59 = 93 mL/min/1.73 sq.m. Ages 60-69 = 85 mL/min/1.73 sq.m. Ages 70+ = 75 mL/min/1.73 sq.m. Chronic Kidney Disease: Less than 60 mL/min/1.73 square meters End Stage Renal Disease: Less than 15 mL/min/1.73 square meters Performed By: #### G FR, CBC, ANEU, ADIFF, BMP #### [address] [address] .NEUABSon 05-08-2024 Neutrophil, Absolute 5.3 10 3/mcL Normal 2.3-8.1 [facility] Comment on above: Performed By: #### G FR, CBC, ANEU, ADIFF, BMP #### [address] 05-08-2024 BUN/Creatinine Ratio 25.4 ratio High 10.0-22.0 [facility] Comment on above: Performed By: #### G FR, CBC, ANEU, ADIFF, BMP #### [place] [address] Calcium [Mass/Vol] 9.7 mg/dL Normal 8.7-10.4 [facility] Comment on above: Performed By: #### G FR, CBC, ANEU, ADIFF, BMP #### [place] [address] Chloride [Moles/Vol] 110 mmol/L Normal 98-110 [facility] Comment on above: Performed By: #### G FR, CBC, ANEU, ADIFF, BMP #### [place] [address] CO2 [Moles/Vol] 29 mmol/L Normal 22-32 [facility] Comment on above: Performed By: #### G FR, CBC, ANEU, ADIFF, BMP #### [place] [address] Creatinine [Mass/Vol] 0.71 mg/dL Normal 0.50-1.20 [facility] Comment on above: Result Comment: Test ing performed on Kitchfix analyzer using enzymatic creatinine methodology. Performed By: #### G FR, CBC, ANEU, ADIFF, BMP #### [place] [address] Electrolyte Balance 5.0 mEq/L Normal 4.0-15.0 [facility] Comment on above: Performed By: #### G FR, CBC, ANEU, ADIFF, BMP #### [place] [address] Glucose [Mass/Vol] 106 mg/dL Normal 82-115 [facility] Comment on above: Performed By: #### G FR, CBC, ANEU, ADIFF, BMP #### [place] [id number] Potassium [Moles/Vol] 3.6 mmol/L Normal 3.5-5.0 [facility] Comment on above: Performed By: #### G FR, CBC, ANEU, ADIFF, BMP #### [place] [id number] Sodium [Moles/Vol] 144 mmol/L Normal 136-145 [facility] Comment on above: Performed By: #### G FR, CBC, ANEU, ADIFF, BMP #### [place] [address] Urea nitrogen [Mass/Vol] 18.0 mg/dL Normal 8.0-22.0 [facility] Comment on above: Performed By: #### G FR, CBC, ANEU, ADIFF, BMP #### [address] [address] [facility] 05-08-2024 Erythrocyte distribution width (RBC) [Ratio] 13.5 % Normal 11.5-15.5 [facility] Comment on above: Performed By: #### G FR, CBC, ANEU, ADIFF, BMP #### [place] [id number] Hematocrit (Bld) [Volume fraction] 40.9 % Normal 34.0-46.0 [facility] Comment on above: Performed By: #### G FR, CBC, ANEU, ADIFF, BMP #### [place] [id number] Hgb 13.7 G/dL Normal 12.0-16.0 [facility] Comment on above: Performed By: #### G FR, CBC, ANEU, ADIFF, BMP #### [address] [address] MCH (RBC) [Entitic mass] 29.0 pg Normal 27.0-33.0 [facility] Comment on above: Performed By: #### G FR, CBC, ANEU, ADIFF, BMP #### [place] [address] MCHC 33.5 G/dL Normal 32.0-36.0 [facility] Comment on above: Performed By: #### G FR, CBC, ANEU, ADIFF, BMP #### [place] [address] MCV (RBC) [Entitic vol] 86.6 fL Normal 80.0-99.0 [facility] Comment on above: Performed By: #### G FR, CBC, ANEU, ADIFF, BMP #### [place] [address] Platelet 198 10 3/mcL Normal 150-450 [facility] Comment on above: Performed By: #### G FR, CBC, ANEU, ADIFF, BMP #### [place] [address] Platelet mean volume (Bld) [Entitic vol] 8.1 fL Normal 6.6-10.5 [facility] Comment on above: Performed By: #### G FR, CBC, ANEU, ADIFF, BMP #### [place] [address] RBC 4.73 10 6/mcL Normal 4.10-5.30 [facility] Comment on above: Performed By: #### G FR, CBC, ANEU, ADIFF, BMP #### [place] [address] WBC 7.6 10 3/mcL Normal 4.5-10.8 [facility] Comment on above: Performed By: #### G FR, CBC, ANEU, ADIFF, BMP #### [place] [address] LABORATORYOrdered By: SYSTEM SYSTEM on 05-08-2024 Basophils (Bld) [#/Vol] 0.1 103/mcL Normal 0.0 - 0.3 10^3/mcL Workflow SS Basophils/100 WBC (Bld) 0.9 % Normal 0.0 - 2.5 % AH Workflow SS Calcium [Mass/Vol] 9.7 mg/dL Normal 8.7 - 10. 4 mg/dL ADM SS Chloride [Moles/Vol] 110 mmol/L Normal 98 - 11 0 mEq/L ADM SS CO2 [Moles/Vol] 29 mmol/L Normal 22 - 32 mEq/L ADM SS Creatinine [Mass/Vol] 0.71 mg/dL Normal 0.50 - 1.20 mg/dL ADM SS Comment on above: Interpretive Data: T esting performed on Kitchfix analyzer using enzymatic creatinine methodology. Electrolyte Balance 5.0 mEq/L Normal 4.0 - 15 .0 mEq/L ADM SS Eosinophils (Bld) [#/Vol] 0.3 103/mcL Normal 0.0 - 0.7 10^3/mcL Workflow SS Eosinophils/100 WBC (Bld) 3.5 % Normal 0.0 - 6.0 % Workflow SS Erythrocyte distribution width (RBC) [Ratio] 13.5 % Normal 11.5 - 15.5 % Workflow SS GFR/1.73 sq M.predicted among blacks MDRD (S/P/Bld) [Vol rate/Area] ml/min/1.73sqm Invalid Interpretation Code [employer] Chemistry S Comment on above: Interpretive Data: GFR Population mean for , Non- Americans Ages 20-29 = 116 mL/min/1.73 sq.m. Ages 30-39 = 107 mL/min/1.73 sq.m. Ages 40-49 = 99 mL/min/1.73 sq.m. Ages 50-59 = 93 mL/min/1.73 sq.m. Ages 60-69 = 85 mL/min/1.73 sq.m. Ages 70+ = 75 mL/min/1.73 sq.m. Chronic Kidney Disease: Less than 60 mL/min/1.73 square meters End Stage Renal Disease: Less than 15 mL/min/1.73 square meters GFR/1.73 sq M.predicted among non-blacks MDRD (S/P/Bld) [Vol rate/Area] ml/min/1.73sqm Invalid Interpretation Code [employer] Chemistry S Comment on above: Interpretive Data: GFR Population mean for , Non- Americans Ages 20-29 = 116 mL/min/1.73 sq.m. Ages 30-39 = 107 mL/min/1.73 sq.m. Ages 40-49 = 99 mL/min/1.73 sq.m. Ages 50-59 = 93 mL/min/1.73 sq.m. Ages 60-69 = 85 mL/min/1.73 sq.m. Ages 70+ = 75 mL/min/1.73 sq.m. Chronic Kidney Disease: Less than 60 mL/min/1.73 square meters End Stage Renal Disease: Less than 15 mL/min/1.73 square meters Glucose [Mass/Vol] 106 mg/dL Normal 82 - 115 mg/dL AH ADM SS Hematocrit (Bld) [Volume fraction] 40.9 % Normal 34.0 - 46.0 % AH Workflow SS Hemoglobin (Bld) [Mass/Vol] 13.7 G/dL Normal 12.0 - 16.0 G/dL AH Workflow SS Lymphocytes (Bld) [#/Vol] 1.3 103/mcL Normal 0.9 - 4.3 10^3/mcL AH Workflow SS Lymphocytes/100 WBC (Bld) 16.8 % Low 20.0 - 40.0 % AH Workflow SS MCH (RBC) [Entitic mass] 29.0 pg Normal 27.0 - 33.0 pg AH Workflow SS MCHC 33.5 G/dL Normal 32.0 - 36.0 G/dL AH Workflow SS MCV (RBC) [Entitic vol] 86.6 fL Normal 80.0 - 99.0 fL AH Workflow SS Monocytes (Bld) [#/Vol] 0.7 103/mcL Normal 0.1 - 1.4 10^3/mcL AH Workflow SS Monocytes/100 WBC (Bld) 9.4 % Normal 2.0 - 13.0 % AH Workflow SS Neutrophils (Bld) [#/Vol] 5.3 103/mcL Normal 2.3 - 8.1 10^3/mcL AH Workflow SS Neutrophils/100 WBC (Bld) 69.4 % Normal 50.0 - 75.0 % AH Workflow SS Platelet mean volume (Bld) [Entitic vol] 8.1 fL Normal 6.6 - 10.5 fL AH Workflow SS Platelets (Bld) [#/Vol] 198 103/mcL Normal 150 - 450 10^3/mcL AH Workflow SS Potassium [Moles/Vol] 3.6 mmol/L Normal 3.5 - 5.0 mEq/L AH ADM SS RBC (Bld) [#/Vol] 4.73 106/mcL Normal 4.10 - 5.3 0 10^6/mcL AH Workflow SS Sodium [Moles/Vol] 144 mmol/L Normal 136 - 145 mEq/L AH ADM SS Urea nitrogen [Mass/Vol] 18.0 mg/dL Normal 8.0 - 22.0 mg/dL AH ADM SS Urea nitrogen/Creatinine [Mass ratio] 25.4 ratio High 10.0 - 22.0 ratio AH ADM SS WBC (Bld) [#/Vol] 7.6 103/mcL Normal 4.5 - 10.8 10^3/mcL AH Workflow SS CKon 05-07-2024 CK [Catalytic activity/Vol] 23 U/L Normal 7-185 [facility] Comment on above: Order Comment: add o n lab Performed By: #### C K ####[place] [address] LABORATORYOrdered By: SYSTEM SYSTEM on 05-07-2024 CK [Catalytic activity/Vol] 23 U/L Normal 7 - 185 U/L AH ADM SS LABORATORYOrdered By: Bernardino Malagon on 05-07-2024 Appearance (U) Clear (05/07/24 5:34 AM) Normal Clear AH Auto Urine SS Bilirubin Ql (U) Negative (05/07/24 5:34 AM) Normal Neg-Trace AH Auto Urine SS Color (U) Yellow (05/07/24 5:34 AM) Normal AH Auto Urine SS Glucose Test strip (U) [Mass/Vol] Negative Normal Negative AH Auto Urine SS Hemoglobin Auto test strip (U) [Mass/Vol] Negative (05/07/24 5:34 AM) Normal Neg-Trace AH Auto Urine SS Ketones Ql (U) Negative Normal Neg-Trace AH Auto Urine SS UA Leuk Est Trace *NA* (05/07/24 5:34 AM) Invalid Interpretation Code Negative AH Auto Urine SS UA Nitrite Negative (05/07/24 5:34 AM) Normal Negative AH Auto Urine SS UA pH 6.5 (05/07/24 5:34 AM) Normal 5.0 - 8.0 AH Auto Urine SS UA Protein Negative Normal Negative Auto Urine SS UA Spec Grav 1.010 (05/07/24 5:34 AM) Normal 1.006-1.029 AH Auto Urine SS UA Specimen Type Clean Catch (05/07/24 5:34 AM) Normal AH Auto Urine SS UA Urobilinogen 0.2 E.U./dL Normal 0.2-1.0 Auto Urine SS UAon 05-07-2024 Color (U) Yellow Normal [facility] Comment on above: Performed By: #### U A #### [place] [address] Glucose (U) [Mass/Vol] Negative Normal Negative [facility] Comment on above: Performed By: #### U A #### [place] [address] Ketones Ql (U) Negative Normal Neg-Trace [facility] Comment on above: Performed By: #### U A #### [place] [address] UA Appear Clear Normal Clear [facility] Comment on above: Performed By: #### U A #### [place] [address] UA Blood Negative Normal Neg-Trace [facility] Comment on above: Performed By: #### U A #### [place] [address] UA Leuk Est Trace Normal Negative [facility] Comment on above: Performed By: #### U A #### [place] [address] UA Nitrite Negative Normal Negative [facility] Comment on above: Performed By: #### U A #### [place] [address] UA pH 6.5 Normal 5.0 - 8.0 [facility] Comment on above: Performed By: #### U A #### [place] [address] UA Protein Negative Normal Negative [facility] Comment on above: Performed By: #### U A #### [place] [address] UA Spec Grav 1.010 Normal 1.006-1.029 [facility] Comment on above: Performed By: #### U A #### [address] [address] UA Specimen Type Clean Catch Normal [facility] Comment on above: Performed By: #### U A #### [address] [address] UA Urobilinogen 0.2 E.U./dL Normal 0.2-1.0 [facility] Comment on above: Performed By: #### U A #### [place] [address] Urobilinogen (U) [Mass/Vol] Negative Normal Neg-Trace [facility] Comment on above: Performed By: #### U A #### [address] [address] .Auto Diffon 05-06-2024 Basophil, Absolute 0.1 10 3/mcL Normal 0.0-0.3 [facility] Comment on above: Performed By: #### M DW, MG, TROPHS, ANEU, GFR, CBC, ADIFF, CMP ####[place] [id number] Basophils/100 WBC (Bld) 0.9 % Normal 0.0-2.5 [facility] Comment on above: Performed By: #### M DW, MG, TROPHS, ANEU, GFR, CBC, ADIFF, CMP ####[address] [address] Eosinophil, Absolute 0.2 10 3/mcL Normal 0.0-0.7 [facility] Comment on above: Performed By: #### M DW, MG, TROPHS, ANEU, GFR, CBC, ADIFF, CMP ####[address] [address] Eosinophils/100 WBC (Bld) 1.2 % Normal 0.0-6.0 [facility] Comment on above: Performed By: #### M DW, MG, TROPHS, ANEU, GFR, CBC, ADIFF, CMP ####[address] [address] Lymphocyte, Absolute 2.1 10 3/mcL Normal 0.9-4.3 [facility] Comment on above: Performed By: #### M DW, MG, TROPHS, ANEU, GFR, CBC, ADIFF, CMP ####[address] [address] Lymphocytes/100 WBC (Bld) 15.1 % Low 20.0-40.0 [facility] Comment on above: Performed By: #### M DW, MG, TROPHS, ANEU, GFR, CBC, ADIFF, CMP ####[address] [address] Monocyte, Absolute 1.2 10 3/mcL Normal 0.1-1.4 [facility] Comment on above: Performed By: #### M DW, MG, TROPHS, ANEU, GFR, CBC, ADIFF, CMP ####[address] [address] Monocytes/100 WBC (Bld) 8.5 % Normal 2.0-13.0 [facility] Comment on above: Performed By: #### M DW, MG, TROPHS, ANEU, GFR, CBC, ADIFF, CMP ####[address] [address] Neutrophils/100 WBC (Bld) 74.3 % Normal 50.0-75.0 [facility] Comment on above: Performed By: #### M DW, MG, TROPHS, ANEU, GFR, CBC, ADIFF, CMP ####[address] [address] .GFRon 05-06-2024 GFR >60 Normal [facility] Comment on above: Result Comment: GFR Population mean for , Non- Americans Ages 20-29 = 116 mL/min/1.73 sq.m. Ages 30-39 = 107 mL/min/1.73 sq.m. Ages 40-49 = 99 mL/min/1.73 sq.m. Ages 50-59 = 93 mL/min/1.73 sq.m. Ages 60-69 = 85 mL/min/1.73 sq.m. Ages 70+ = 75 mL/min/1.73 sq.m. Chronic Kidney Disease: Less than 60 mL/min/1.73 square meters End Stage Renal Disease: Less than 15 mL/min/1.73 square meters Performed By: #### M DW, MG, TROPHS, ANEU, GFR, CBC, ADIFF, CMP ####[place] [address] GFR Non- >60 Normal [facility] Comment on above: Result Comment: GFR Population mean for , Non- Americans Ages 20-29 = 116 mL/min/1.73 sq.m. Ages 30-39 = 107 mL/min/1.73 sq.m. Ages 40-49 = 99 mL/min/1.73 sq.m. Ages 50-59 = 93 mL/min/1.73 sq.m. Ages 60-69 = 85 mL/min/1.73 sq.m. Ages 70+ = 75 mL/min/1.73 sq.m. Chronic Kidney Disease: Less than 60 mL/min/1.73 square meters End Stage Renal Disease: Less than 15 mL/min/1.73 square meters Performed By: #### M DW, MG, TROPHS, ANEU, GFR, CBC, ADIFF, CMP ####[place] [address] .MDWon 05-06-2024 Monocyte Distribution Width 17.36 Normal 0.00-20.00 [facility] Comment on above: Result Comment: For ED adult patients suspected of sepsis, MDW<=20.0 does not rule out sepsis or risk of sepsis Performed By: #### M DW, MG, TROPHS, ANEU, GFR, CBC, ADIFF, CMP ####[place] [address] .NEUABSon 05-06-2024 Neutrophil, Absolute 10.2 10 3/mcL High 2.3-8.1 [facility] Comment on above: Performed By: #### M DW, MG, TROPHS, ANEU, GFR, CBC, ADIFF, CMP ####[place] [address] CBCon 05-06-2024 Erythrocyte distribution width (RBC) [Ratio] 13.5 % Normal 11.5-15.5 [facility] Comment on above: Performed By: #### M DW, MG, TROPHS, ANEU, GFR, CBC, ADIFF, CMP #### [place] [address] Hematocrit (Bld) [Volume fraction] 50.2 % High 34.0-46.0 [facility] Comment on above: Performed By: #### M DW, MG, TROPHS, ANEU, GFR, CBC, ADIFF, CMP #### [place] [address] Hgb 16.6 G/dL High 12.0-16.0 [facility] Comment on above: Performed By: #### M DW, MG, TROPHS, ANEU, GFR, CBC, ADIFF, CMP #### [place] [address] MCH (RBC) [Entitic mass] 28.1 pg Normal 27.0-33.0 [facility] Comment on above: Performed By: #### M DW, MG, TROPHS, ANEU, GFR, CBC, ADIFF, CMP #### [place] [address] MCHC 33.1 G/dL Normal 32.0-36.0 [facility] Comment on above: Performed By: #### M DW, MG, TROPHS, ANEU, GFR, CBC, ADIFF, CMP #### [place] [id number] MCV (RBC) [Entitic vol] 85.0 fL Normal 80.0-99.0 [facility] Comment on above: Performed By: #### M DW, MG, TROPHS, ANEU, GFR, CBC, ADIFF, CMP #### [place] [address] Platelet 282 10 3/mcL Normal 150-450 [facility] Comment on above: Performed By: #### M DW, MG, TROPHS, ANEU, GFR, CBC, ADIFF, CMP #### [place] [address] Platelet mean volume (Bld) [Entitic vol] 8.1 fL Normal 6.6-10.5 [facility] Comment on above: Performed By: #### M DW, MG, TROPHS, ANEU, GFR, CBC, ADIFF, CMP #### [place] [address] RBC 5.90 10 6/mcL High 4.10-5.30 [facility] Comment on above: Performed By: #### M DW, MG, TROPHS, ANEU, GFR, CBC, ADIFF, CMP #### [place] [address] WBC 13.7 10 3/mcL High 4.5-10.8 [facility] Comment on above: Performed By: #### M DW, MG, TROPHS, ANEU, GFR, CBC, ADIFF, CMP #### [place] [address] CMPon 05-06-2024 Albumin Level 4.0 G/dL Normal 3.2-4.8 [facility] Comment on above: Performed By: #### M DW, MG, TROPHS, ANEU, GFR, CBC, ADIFF, CMP ####[place] [address] Albumin/Globulin [Mass ratio] 1.2 {ratio} Normal 0.9-1.6 [facility] Comment on above: Performed By: #### M DW, MG, TROPHS, ANEU, GFR, CBC, ADIFF, CMP ####[place] [address] ALP [Catalytic activity/Vol] 137 U/L High 38-126 [facility] Comment on above: Performed By: #### M DW, MG, TROPHS, ANEU, GFR, CBC, ADIFF, CMP ####[place] [address] ALT [Catalytic activity/Vol] 9 U/L Low 10-49 [facility] Comment on above: Performed By: #### M DW, MG, TROPHS, ANEU, GFR, CBC, ADIFF, CMP ####[place] [address] AST [Catalytic activity/Vol] 21 U/L Normal 8-34 [facility] Comment on above: Performed By: #### M DW, MG, TROPHS, ANEU, GFR, CBC, ADIFF, CMP ####[place] [address] Bili Total 0.60 mg/dL Normal 0.20-1.20 [facility] Comment on above: Result Comment: Use of this assay is not recommended for patients undergoing treatment with eltrombopag due to the potential for falsely elevated results. Performed By: #### M DW, MG, TROPHS, ANEU, GFR, CBC, ADIFF, CMP ####[place] [address] BUN/Creatinine Ratio 16.9 ratio Normal 10.0-22.0 [facility] Comment on above: Performed By: #### M DW, MG, TROPHS, ANEU, GFR, CBC, ADIFF, CMP ####[place] [address] Calcium [Mass/Vol] 11.4 mg/dL High 8.7-10.4 [facility] Comment on above: Performed By: #### M DW, MG, TROPHS, ANEU, GFR, CBC, ADIFF, CMP ####[place] [address] Chloride [Moles/Vol] 101 mmol/L Normal 98-110 [facility] Comment on above: Performed By: #### M DW, MG, TROPHS, ANEU, GFR, CBC, ADIFF, CMP ####[address] [address] CO2 [Moles/Vol] 28 mmol/L Normal 22-32 [facility] Comment on above: Performed By: #### M DW, MG, TROPHS, ANEU, GFR, CBC, ADIFF, CMP ####[place] [id number] Creatinine [Mass/Vol] 0.83 mg/dL Normal 0.50-1.20 [facility] Comment on above: Result Comment: Test ing performed on Kitchfix analyzer using enzymatic creatinine methodology. Performed By: #### M DW, MG, TROPHS, ANEU, GFR, CBC, ADIFF, CMP ####[address] [address] Electrolyte Balance 8.0 mEq/L Normal 4.0-15.0 [facility] Comment on above: Performed By: #### M DW, MG, TROPHS, ANEU, GFR, CBC, ADIFF, CMP ####[address] [address] Globulin 3.2 G/dL Normal 1.5-3.8 [facility] Comment on above: Performed By: #### M DW, MG, TROPHS, ANEU, GFR, CBC, ADIFF, CMP ####[place] [id number] Glucose [Mass/Vol] 105 mg/dL Normal 82-115 [facility] Comment on above: Performed By: #### M DW, MG, TROPHS, ANEU, GFR, CBC, ADIFF, CMP ####[place] [address] Potassium [Moles/Vol] 3.8 mmol/L Normal 3.5-5.0 [facility] Comment on above: Result Comment: Spec imen slightly hemolyzed. Performed By: #### M DW, MG, TROPHS, ANEU, GFR, CBC, ADIFF, CMP ####[place] [address] Sodium [Moles/Vol] 137 mmol/L Normal 136-145 [facility] Comment on above: Performed By: #### M DW, MG, TROPHS, ANEU, GFR, CBC, ADIFF, CMP ####[place] [address] Total Protein 7.2 G/dL Normal 5.7-8.2 [facility] Comment on above: Result Comment: No te - New Reference Range in effect 20 Performed By: #### M DW, MG, TROPHS, ANEU, GFR, CBC, ADIFF, CMP ####[place] [address] Urea nitrogen [Mass/Vol] 14.0 mg/dL Normal 8.0-22.0 [facility] Comment on above: Performed By: #### M DW, MG, TROPHS, ANEU, GFR, CBC, ADIFF, CMP ####[facility] [place], [place] [id number] CT HEAD OR BRAIN W/O CONTRAS Ton 05-06-2024 CT HEAD OR BRAIN W/O CONTRAST ORIGINAL EXAMINATION: CT OF THE HEAD WITHOUT CECGZRHK74/15/2024 8:[address] HEAD/BRAIN WITHOUT CONTRAST EXAM DESCRIPTION: TECHNIQUE: CT of the head was performed without the administration of intravenous contrast. Automated exposure control, iterative reconstruction, and/or weight based adjustment of the mA/kV was utilized to reduce the radiation dose to as low as reasonably achievable. COMPARISON: MR brain, May 01, 2024. HISTORY: ORDERING SYSTEM PROVIDED HISTORY: Reason for Exam: DIZZY, SLURRED SPEECH X 3 DAYS, worsening ams, limited historian due to dementia dizziness, slowed speach x3 days FINDINGS: There is no evidence of mass, midline shift, hemorrhage, or infarct. Although the brain morphology appears normal, the ventricles, cortical sulci, and subarachnoid cisterns appear prominent. There are no extra-axial fluid collections. No regions of pathologic attenuation are evident. Decreased density periventricular white matter. Regions of the orbits and paranasal sinuses included within the field of view are unremarkable. There is no displaced fracture or osseous neoplasm. The extracalvarial soft tissues appear unremarkable. IMPRESSION: 1. No acute intracranial pathology. 2. Prominent CSF spaces usually indicate volume loss/atrophy as a manifestation of moderate chronic white matter ischemia. COMMENT: Changes resultant from ischemia (even significant ischemia) may often be inapparent on CT exam, particularly if imaged early. Additionally, early changes due to neoplastic or inflammatory processes can be subtle to the extent that they are not prospectively noted. Therefore, if symptoms persist, or clinical suspicion for pathology remains, further evaluation may be obtained with MRI. Interpreted by: Niall Quevedo MD Preliminary Report By: Niall Quevedo MD Electronically signed By Niall Quevedo MD Dictated Date: 05/06/2024 9:05:01 PM Prelim Date: 05/06/2024 9:05:39 PM Sign Date: 05/06/2024 9:05:39 PM Ordering Provider: DAI SILVERMAN Normal [facility] CVFLURVon 05-06-2024 FLU A PCR Negative Normal Negative [facility] Comment on above: [place]: [place] [id number] Performed By: #### C VFLURV #### [place] [address] FLU B PCR Negative Normal Negative [facility] Comment on above: Result Comment: [place] [id number] Performed By: #### C VFLURV #### [facility] [address] [place] [address] RSV PCR Negative Normal Negative [facility] Comment on above: Result Comment: [place] [id number] Performed By: #### C VFLURV #### [place] [address] SARS-CoV-2 (COVID-19) RNA VINCE+probe Ql (Unsp spec) Negative Normal Negative [facility] Comment on above: Result Comment: Note s [id number] This test has been authorized by FDA under an EUA for use by authorized laboratories and has not been FDA cleared or approved. Results from the Xpert Xpress SARS-CoV-2/Flu/RSV or Xpert Xpress SARS-CoV-2 only test should be correlated with the clinical history, epidemiological data, and other data available to the clinician evaluating the patient. Performance of the Xpert Xpress SARS-CoV-2/Flu/RSV or Xpert Xpress SARS-CoV-2 only test has only been established in nasopharyngeal swab specimens. Erroneous test results might occur from improper specimen collection; failure to follow the recommended sample collection, handling, and storage procedures; technical error; or sample mix-up.False negative results may occur if virus is present at levels below the analytical limit of detection. Viral nucleic acid may persist in vivo, independent of virus viability. Detection of analyte target(s) does not imply that the corresponding virus(es) are infectious or are the causative agents for clinical symptoms.Recent patient exposure to FluMist or other live attenuated influenza vaccines may cause inaccurate positive results. Performed By: #### C VFLURV #### [place] [address] LABORATORYOrdered By: Miley Islas on 05-06-2024 FLUAV RNA VINCE+probe Ql (Resp) Negative 10 (05/06/24 9:16 PM) Normal Negative AH Auto Viro/Sero SS Comment on above: [place]: [place] [id number] FLUBV RNA VINCE+probe Ql (Resp) Negative 11 (05/06/24 9:16 PM) Normal Negative AH Auto Viro/Sero SS Comment on above: Result Comment: [place] [id number] RSV PCR Negative 12 (05/06/24 9:16 PM) Normal Negative AH Auto Viro/Sero SS Comment on above: Result Comment: [place] s [id number] SARS-CoV-2 (COVID-19) RNA VINCE+probe Ql (Resp) Negative 8, 9 (05/06/24 9:16 PM) Normal Negative AH Auto Viro/Sero SS Comment on above: Result Comment: [place] s [id number] Interpretive Data: T his test has been authorized by FDA under an EUA for use by authorized laboratories and has not been FDA cleared or approved. Results from the Xpert Xpress SARS-CoV-2/Flu/RSV or Xpert Xpress SARS-CoV-2 only test should be correlated with the clinical history, epidemiological data, and other data available to the clinician evaluating the patient. Performance of the Xpert Xpress SARS-CoV-2/Flu/RSV or Xpert Xpress SARS-CoV-2 only test has only been established in nasopharyngeal swab specimens. Erroneous test results might occur from improper specimen collection; failure to follow the recommended sample collection, handling, and storage procedures; technical error; or sample mix-up.False negative results may occur if virus is present at levels below the analytical limit of detection. Viral nucleic acid may persist in vivo, independent of virus viability. Detection of analyte target(s) does not imply that the corresponding virus(es) are infectious or are the causative agents for clinical symptoms.Recent patient exposure to FluMist or other live attenuated influenza vaccines may cause inaccurate positive results. LABORATORYOrdered By: SYSTEM SYSTEM on 05-06-2024 Albumin BCP dye [Mass/Vol] 4.0 G/dL Normal 3.2 - 4.8 G/dL AH ADM SS Albumin/Globulin [Mass ratio] 1.2 {ratio} Normal 0.9 - 1.6 ratio AH ADM SS ALP [Catalytic activity/Vol] 137 U/L High 38 - 126 U/L AH ADM SS ALT No additional P-5'-P [Catalytic activity/Vol] 9 U/L Low 10 - 49 U/L AH ADM SS AST [Catalytic activity/Vol] 21 U/L Normal 8 - 34 U/L AH ADM SS Basophils (Bld) [#/Vol] 0.1 103/mcL Normal 0.0 - 0.3 10^3/mcL Workflow SS Basophils/100 WBC (Bld) 0.9 % Normal 0.0 - 2.5 % Workflow SS Bilirubin [Mass/Vol] 0.60 mg/dL Normal 0.20 - 1.20 mg/dL ADM SS Comment on above: Interpretive Data: U se of this assay is not recommended for patients undergoing treatment with eltrombopag due to the potential for falsely elevated results. Calcium [Mass/Vol] 11.4 mg/dL High 8.7 - 10. 4 mg/dL ADM SS Chloride [Moles/Vol] 101 mmol/L Normal 98 - 11 0 mEq/L ADM SS CO2 [Moles/Vol] 28 mmol/L Normal 22 - 32 mEq/L ADM SS Creatinine [Mass/Vol] 0.83 mg/dL Normal 0.50 - 1.20 mg/dL ADM SS Comment on above: Interpretive Data: T esting performed on K[employer] analyzer using enzymatic creatinine methodology. Electrolyte Balance 8.0 mEq/L Normal 4.0 - 15 .0 mEq/L ADM SS Eosinophils (Bld) [#/Vol] 0.2 103/mcL Normal 0.0 - 0.7 10^3/mcL Workflow SS Eosinophils/100 WBC (Bld) 1.2 % Normal 0.0 - 6.0 % Workflow SS Erythrocyte distribution width (RBC) [Ratio] 13.5 % Normal 11.5 - 15.5 % Workflow SS GFR/1.73 sq M.predicted among blacks MDRD (S/P/Bld) [Vol rate/Area] ml/min/1.73sqm Invalid Interpretation Code ADM SS Comment on above: Interpretive Data: GFR Population mean for , Non- Americans Ages 20-29 = 116 mL/min/1.73 sq.m. Ages 30-39 = 107 mL/min/1.73 sq.m. Ages 40-49 = 99 mL/min/1.73 sq.m. Ages 50-59 = 93 mL/min/1.73 sq.m. Ages 60-69 = 85 mL/min/1.73 sq.m. Ages 70+ = 75 mL/min/1.73 sq.m. Chronic Kidney Disease: Less than 60 mL/min/1.73 square meters End Stage Renal Disease: Less than 15 mL/min/1.73 square meters GFR/1.73 sq M.predicted among non-blacks MDRD (S/P/Bld) [Vol rate/Area] ml/min/1.73sqm Invalid Interpretation Code ADM SS Comment on above: Interpretive Data: GFR Population mean for , Non- Americans Ages 20-29 = 116 mL/min/1.73 sq.m. Ages 30-39 = 107 mL/min/1.73 sq.m. Ages 40-49 = 99 mL/min/1.73 sq.m. Ages 50-59 = 93 mL/min/1.73 sq.m. Ages 60-69 = 85 mL/min/1.73 sq.m. Ages 70+ = 75 mL/min/1.73 sq.m. Chronic Kidney Disease: Less than 60 mL/min/1.73 square meters End Stage Renal Disease: Less than 15 mL/min/1.73 square meters Globulin 3.2 G/dL Normal 1.5 - 3.8 G/dL ADM SS Glucose [Mass/Vol] 105 mg/dL Normal 82 - 115 mg/dL ADM SS Hematocrit (Bld) [Volume fraction] 50.2 % High 34.0 - 46.0 % Workflow SS Hemoglobin (Bld) [Mass/Vol] 16.6 G/dL High 12.0 - 16.0 G/dL Workflow SS Lymphocytes (Bld) [#/Vol] 2.1 103/mcL Normal 0.9 - 4.3 10^3/mcL Workflow SS Lymphocytes/100 WBC (Bld) 15.1 % Low 20.0 - 40.0 % Workflow SS Magnesium [Mass/Vol] 2.2 mg/dL Normal 1.6 - 2 .4 mg/dL ADM SS MCH (RBC) [Entitic mass] 28.1 pg Normal 27.0 - 33.0 pg Workflow SS MCHC 33.1 G/dL Normal 32.0 - 36.0 G/dL Workflow SS MCV (RBC) [Entitic vol] 85.0 fL Normal 80.0 - 99.0 fL Workflow SS Monocyte distribution width Auto (Bld) [Entitic vol] 17.36 1 Normal 0.00 - 20.00 Workflow SS Comment on above: Result Comment: For ED adult patients suspected of sepsis, MDW<=20.0 does not rule out sepsis or risk of sepsis Monocytes (Bld) [#/Vol] 1.2 103/mcL Normal 0.1 - 1.4 10^3/mcL AH Workflow SS Monocytes/100 WBC (Bld) 8.5 % Normal 2.0 - 13.0 % AH Workflow SS Neutrophils (Bld) [#/Vol] 10.2 103/mcL High 2.3 - 8.1 10^3/mcL AH Workflow SS Neutrophils/100 WBC (Bld) 74.3 % Normal 50.0 - 75.0 % AH Workflow SS Platelet mean volume (Bld) [Entitic vol] 8.1 fL Normal 6.6 - 10.5 fL AH Workflow SS Platelets (Bld) [#/Vol] 282 103/mcL Normal 150 - 450 10^3/mcL AH Workflow SS Potassium [Moles/Vol] 3.8 mmol/L Normal 3.5 - 5.0 mEq/L ADM SS Comment on above: Result Comment: Spec imen slightly hemolyzed. Protein [Mass/Vol] 7.2 G/dL Normal 5.7 - 8.2 G/dL ADM SS Comment on above: Interpretive Data: * *Note - New Reference Range in effect 20 RBC (Bld) [#/Vol] 5.90 106/mcL High 4.10 - 5.3 0 10^6/mcL Workflow SS Sodium [Moles/Vol] 137 mmol/L Normal 136 - 145 mEq/L ADM SS Troponin I.cardiac DL <= 0.01 ng/mL [Mass/Vol] 22 ng/L Normal 0 - 34 ng/L ADM SS Comment on above: Interpretive Data: High Sensitive Troponin I Reference Ranges: Female: 0-34 ng/L Male: 0-54 ng/L Testing performed on [employer] analyzer using direct chemiluminescent technology. Urea nitrogen [Mass/Vol] 14.0 mg/dL Normal 8.0 - 22.0 mg/dL ADM SS Urea nitrogen/Creatinine [Mass ratio] 16.9 ratio Normal 10.0 - 22.0 ratio ADM SS WBC (Bld) [#/Vol] 13.7 103/mcL High 4.5 - 10.8 10^3/mcL AH Workflow SS LABORATORYOrdered By: Carolynn Gonzales on 05-06-2024 Albumin DL <= 20 mg/L (U) [Mass/Vol] 466 mcg/dL Invalid Interpretation Code AO ADM SS Albumin/Creatinine DL <= 20 mg/L (U) [Mass ratio] 23 mcg/mg Normal 0 - 30 mcg/mg AO ADM SS Creatinine (U) [Mass/Vol] 19.9 mg/dL Low 28.0 - 117.0 mg/dL AO ADM SS MALBRon 05-06-2024 U Creatinine 19.9 mg/dL Low 28.0-117.0 [facility] Comment on above: Performed By: #### M ALBR ####[place] [address] [place], [place] [address] U Microalb 466 mcg/dL Normal [facility] Comment on above: Performed By: #### M ALBR ####[facility] [place], [place] [address] U Ratio Alb/Cre 23 mcg/mg Normal 0-30 [facility] Comment on above: Performed By: #### M ALBR ####[place] [address] [place], [place] [address] MGon 05-06-2024 Magnesium [Mass/Vol] 2.2 mg/dL Normal 1.6-2.4 [facility] Comment on above: Performed By: #### M DW, MG, TROPHS, ANEU, GFR, CBC, ADIFF, CMP ####[facility] [place] [address] No Panel Informationon 05-06 Culture Urine 50,000 - 100,000 cfu/ml Multiple bacterial morphotypes present. Probable Contamination. Suggest recollection if clinically indicated. [facility] Work Phone: TROPHSon 05-06-2024 High Sensitivity Troponin I 22 ng/L Normal 0-34 [facility] Comment on above: Result Comment: High Sensitive Troponin I Reference Ranges: Female: 0-34 ng/L Male: 0-54 ng/L Testing performed on [employer] analyzer using direct chemiluminescent technology. Performed By: #### M DW, MG, TROPHS, ANEU, GFR, CBC, ADIFF, CMP ####[place] [address] [place] [address] XR CHEST 1 VIEWon 05-06-2024 XR CHEST 1 VIEW ORIGINAL EXAMINATION: ONE XRAY VIEW OF THE CHEST 05/06/2024 5:36 pm COMPARISON: Chest x-ray 01/30/[address] thorax 09/08/2021 HISTORY: ORDERING SYSTEM PROVIDED HISTORY: Reason for Exam: Dizzy FINDINGS: Cardiomediastinal contour stable. Prominent left epicardial fat pad. Low lung volumes with hypoventilatory changes including bibasilar streaky airspace disease likely representing atelectasis. No definite focal consolidation. No pneumothorax or large pleural effusion. No acute osseous abnormality. Degenerative changes of the spine. IMPRESSION: Bibasilar streaky airspace disease likely represents atelectasis. No focal consolidation. I have personally reviewed the images of this examination and agree with the resident's findings and interpretation. Interpreted by: Shauna Nino Preliminary Report By: Tomer Sofia Electronically signed By Shauna Nino Dictated Date: 05/06/2024 5:43:29 PM Prelim Date: 05/06/2024 5:45:38 PM Sign Date: 05/06/2024 10:25:19 PM Ordering Provider: TARA Anders [facility] MRI BRAIN W/ + W/O CONTRASTo n 05-02-2024 MRI BRAIN W/ + W/O CONTRAST ORIGINAL EXAMINATION: MRI OF THE BRAIN WITHOUT AND WITH CONTRAST 05/01/2024 12:36 pm TECHNIQUE: Multiplanar multisequence MRI of the head/brain was performed without and with the administration of intravenous contrast. COMPARISON: None. HISTORY: ORDERING SYSTEM PROVIDED HISTORY: Reason for Exam: 3 mo recheck abnormal MRI with brain mass FINDINGS: INTRACRANIAL STRUCTURES/VENTRICLES: There is no acute infarct. There is a 3 mm x 3 mm x 7 mm enhancing meningeal nodule projecting inferiorly from the left tentorium unchanged from the comparison examination consistent with incidental meningioma. The ventricles and sulci are normal in size and configuration. Patchy areas of increased T2 signal are present in the periventricular white matter bilaterally. The sellar/suprasellar regions appear unremarkable. The normal signal voids within the major intracranial vessels appear maintained. No abnormal focus of enhancement is seen within the brain. ORBITS: The visualized portion of the orbits demonstrate no acute abnormality. SINUSES: The visualized paranasal sinuses and mastoid air cells demonstrate no acute abnormality. BONES/SOFT TISSUES: The bone marrow signal intensity appears normal. The soft tissues demonstrate no acute abnormality. IMPRESSION: 1. Stable small left tentorial meningioma. 2. Stable chronic small vessel ischemic changes. Interpreted by: Juan Gamez Preliminary Report By: Juan Gamez Electronically signed By Juan Gamez Dictated Date: 05/02/2024 8:52:28 AM Prelim Date: 05/02/2024 8:58:40 AM Sign Date: 05/02/2024 8:58:40 AM Ordering Provider: JAMES LEACH [facility] .GFRon 04-29-2024 GFR 68 ml/min/1.73sqm [facility] Comment on above: Result Comment: GFR Population mean for , Non- Americans Ages 20-29 = 116 mL/min/1.73 sq.m. Ages 30-39 = 107 mL/min/1.73 sq.m. Ages 40-49 = 99 mL/min/1.73 sq.m. Ages 50-59 = 93 mL/min/1.73 sq.m. Ages 60-69 = 85 mL/min/1.73 sq.m. Ages 70+ = 75 mL/min/1.73 sq.m. Chronic Kidney Disease: Less than 60 mL/min/1.73 square meters End Stage Renal Disease: Less than 15 mL/min/1.73 square meters Performed By: #### G , [facility] #### [address] [address] GFR Non- 56 ml/min/1.73sqm [facility] Comment on above: Result Comment: GFR Population mean for , Non- Americans Ages 20-29 = 116 mL/min/1.73 sq.m. Ages 30-39 = 107 mL/min/1.73 sq.m. Ages 40-49 = 99 mL/min/1.73 sq.m. Ages 50-59 = 93 mL/min/1.73 sq.m. Ages 60-69 = 85 mL/min/1.73 sq.m. Ages 70+ = 75 mL/min/1.73 sq.m. Chronic Kidney Disease: Less than 60 mL/min/1.73 square meters End Stage Renal Disease: Less than 15 mL/min/1.73 square meters Performed By: #### Allison MACEDO, CMP #### [address] [address] CMPon 04-29-2024 Albumin Level 3.6 G/dL Normal 3.4-4.8 [facility] Comment on above: Performed By: #### Allison MACEDO, CMP #### [address] [address] Albumin/Globulin [Mass ratio] 1.4 {ratio} Normal 1.1-2.5 [facility] Comment on above: Performed By: #### Allison MACEDO, CMP #### [address] [address] ALP [Catalytic activity/Vol] 129 U/L Normal 40-135 [facility] Comment on above: Performed By: #### Allison MACEDO, CMP #### [address] [address] ALT [Catalytic activity/Vol] 18 U/L Normal 14-59 [facility] Comment on above: Performed By: #### Allison MACEDO, CMP #### [address] [address] AST [Catalytic activity/Vol] 16 U/L Normal 10-40 [facility] Comment on above: Performed By: #### Allison MACEDO, CMP #### [address] [address] Bili Total 0.6 mg/dL Normal 0.2-1.0 [facility] Comment on above: Result Comment: Use of this assay is not recommended for patients undergoing treatment with eltrombopag due to the potential for falsely elevated results. Performed By: #### Allison MACEDO, CMP #### [address] [address] BUN/Creatinine Ratio 15 ratio Normal 7-27 [facility] Comment on above: Performed By: #### Allison MACEDO, CMP #### [address] [address] Calcium [Mass/Vol] 10.3 mg/dL High 8.4-10.2 [facility] Comment on above: Performed By: #### G FR, CMP #### [address] [address] Chloride [Moles/Vol] 102 mmol/L Normal 98-107 [facility] Comment on above: Performed By: #### G FR, CMP #### [address] [address] CO2 [Moles/Vol] 29 mmol/L Normal 23-31 [facility] Comment on above: Performed By: #### G , CMP #### [address] [address] Creatinine [Mass/Vol] 0.95 mg/dL Normal 0.55-1.[address] [facility] Comment on above: Result Comment: Test ing performed on Siemens Dimension EXL analyzer using a modified kinetic Victor M technique. Performed By: #### G , CMP #### [address] [address] Electrolyte Balance 8.0 mEq/L Normal 4.0-15.0 [facility] Comment on above: Performed By: #### G FR, CMP #### [address] [address] Globulin 2.5 G/dL Normal [facility] Comment on above: Performed By: #### G FR, CMP #### [address] [address] Glucose [Mass/Vol] 105 mg/dL Normal 83-110 [facility] Comment on above: Performed By: #### G FR, CMP #### [address] [address] Potassium [Moles/Vol] 4.3 mmol/L Normal 3.5-5.[address] [facility] Comment on above: Performed By: #### G FR, CMP #### [address] [address] Sodium [Moles/Vol] 139 mmol/L Normal 136-145 [facility] Comment on above: Performed By: #### G , CMP #### [place] [address] [place], [place] [address] Total Protein 6.1 G/dL Low 6.4-8.2 [facility] Comment on above: Performed By: #### G , CMP #### [place] [address] [place], [place] [address] Urea nitrogen [Mass/Vol] 14 mg/dL Normal 7-18 [facility] Comment on above: Performed By: #### G , CMP #### [address] [address] LABORATORYOrdered By: SYSTEM SYSTEM on 04-29-2024 Albumin BCP dye [Mass/Vol] 3.6 G/dL Normal 3.4 - 4.8 G/dL AO ADM SS Albumin/Globulin [Mass ratio] 1.4 {ratio} Normal 1.1 - 2.5 ratio AO ADM SS ALP [Catalytic activity/Vol] 129 U/L Normal 40 - 135 U/L AO ADM SS ALT With P-5'-P [Catalytic activity/Vol] 18 U/L Normal 14 - 59 U/L AO ADM SS AST With P-5'-P [Catalytic activity/Vol] 16 U/L Normal 10 - 40 U/L AO ADM SS Bilirubin [Mass/Vol] 0.6 mg/dL Normal 0.2 - 1 .0 mg/dL AO ADM SS Comment on above: Interpretive Data: U se of this assay is not recommended for patients undergoing treatment with eltrombopag due to the potential for falsely elevated results. Calcium [Mass/Vol] 10.3 mg/dL High 8.4 - 10. 2 mg/dL AO ADM SS Chloride [Moles/Vol] 102 mmol/L Normal 98 - 10 7 mmol/L AO ADM SS CO2 [Moles/Vol] 29 mmol/L Normal 23 - 31 mmol/L AO ADM SS Creatinine [Mass/Vol] 0.95 mg/dL Normal 0.55 - 1.02 mg/dL AO ADM SS Comment on above: Interpretive Data: T esting performed on Siemens Dimension EXL analyzer using a modified kinetic Victor M technique. Electrolyte Balance 8.0 mEq/L Normal 4.0 - 15 .0 mEq/L AO ADM SS GFR/1.73 sq M.predicted among blacks MDRD (S/P/Bld) [Vol rate/Area] 68 ml/min/1.73sqm Invalid Interpretation Code AO Chemistry S Comment on above: Interpretive Data: GFR Population mean for , Non- Americans Ages 20-29 = 116 mL/min/1.73 sq.m. Ages 30-39 = 107 mL/min/1.73 sq.m. Ages 40-49 = 99 mL/min/1.73 sq.m. Ages 50-59 = 93 mL/min/1.73 sq.m. Ages 60-69 = 85 mL/min/1.73 sq.m. Ages 70+ = 75 mL/min/1.73 sq.m. Chronic Kidney Disease: Less than 60 mL/min/1.73 square meters End Stage Renal Disease: Less than 15 mL/min/1.73 square meters GFR/1.73 sq M.predicted among non-blacks MDRD (S/P/Bld) [Vol rate/Area] 56 ml/min/1.73sqm Invalid Interpretation Code AO Chemistry S Comment on above: Interpretive Data: GFR Population mean for , Non- Americans Ages 20-29 = 116 mL/min/1.73 sq.m. Ages 30-39 = 107 mL/min/1.73 sq.m. Ages 40-49 = 99 mL/min/1.73 sq.m. Ages 50-59 = 93 mL/min/1.73 sq.m. Ages 60-69 = 85 mL/min/1.73 sq.m. Ages 70+ = 75 mL/min/1.73 sq.m. Chronic Kidney Disease: Less than 60 mL/min/1.73 square meters End Stage Renal Disease: Less than 15 mL/min/1.73 square meters Globulin 2.5 G/dL Invalid Interpretation Code AO ADM SS Glucose [Mass/Vol] 105 mg/dL Normal 83 - 110 mg/dL AO ADM SS Potassium [Moles/Vol] 4.3 mmol/L Normal 3.5 - 5.1 mmol/L AO ADM SS Protein [Mass/Vol] 6.1 G/dL Low 6.4 - 8.2 G/dL AO ADM SS Sodium [Moles/Vol] 139 mmol/L Normal 136 - 145 mmol/L AO ADM SS Urea nitrogen [Mass/Vol] 14 mg/dL Normal 7 - 18 mg/dL AO ADM SS Urea nitrogen/Creatinine [Mass ratio] 15 ratio Normal 7 - 27 ratio AO ADM SS LABORATORYOrdered By: Carolynn Gonzales on 04-29-2024 Cholesterol [Mass/Vol] 152 mg/dL Normal 0 - 2 00 mg/dL AO ADM SS Comment on above: Interpretive Data: C holesterol Reference Interval: Less than 200 Desirable 200-239 Borderline high risk 240 and above High risk Cholesterol in HDL [Mass/Vol] 50 mg/dL Normal 40 - 60 mg/dL AO ADM SS Cholesterol in LDL [Mass/Vol] 70 mg/dL Normal 0 - 130 mg/dL AO ADM SS Triglyceride [Mass/Vol] 158 mg/dL High 0 - 150 mg/dL AO ADM SS Comment on above: Interpretive Data: T riglyceride Reference Interval: Less than 150 Normal 150-199 Borderline high risk 200-499 High risk 500 or higher Very high risk LIPIDon 04-29-2024 Cholesterol [Mass/Vol] 152 mg/dL Normal 0-200 [facility] Comment on above: Result Comment: Chol esterol Reference Interval: Less than 200 Desirable 200-239 Borderline high risk 240 and above High risk Performed By: #### L IPID #### [address] [address] Cholesterol in HDL [Mass/Vol] 50 mg/dL Normal 40-60 [facility] Comment on above: Performed By: #### L IPID #### [address] [address] Cholesterol in LDL [Mass/Vol] 70 mg/dL Normal 0-130 [facility] Comment on above: Performed By: #### L IPID #### [address] [address] Triglyceride [Mass/Vol] 158 mg/dL High 0-150 [facility] Comment on above: Result Comment: Trig lyceride Reference Interval: Less than 150 Normal 150-199 Borderline high risk 200-499 High risk 500 or higher Very high risk Performed By: #### L IPID #### [address] [address] XR KNEE THREE VIEWS LEFTon 1 XR KNEE THREE VIEWS LEFT ORIGINAL EXAMINATION: THREE XRAY VIEWS OF THE LEFT KNEE 04/24/2024 5:09 pm COMPARISON: None. HISTORY: ORDERING SYSTEM PROVIDED HISTORY: Reason for Exam: left knee pain& swelling. Fall non-specific lt knee pain s/p recent fall FINDINGS: No acute displaced fracture or dislocation. Alignment is anatomic. There is mild medial joint space narrowing. Minimal lateral marginal osteophytic lipping. No significant joint effusion. Bones are well mineralized. No radiopaque foreign bodies. IMPRESSION: 1. No acute displaced fracture or dislocation. 2. Mild medial joint space narrowing. Interpreted by: Kaci Farrar Preliminary Report By: Kaci Farrar Electronically signed By Kaci Farrar Dictated Date: 04/29/2024 11:00:07 AM Prelim Date: 04/29/2024 11:00:58 AM Sign Date: 04/29/2024 11:00:58 AM Ordering Provider: CHARLI Anders [facility] .Auto Diffon 02-27-2024 Basophil, Absolute 0.2 10 3/mcL Normal 0.0-0.2 [facility] Comment on above: Performed By: #### B MP, LIPID, GFR #### [address] [address] Basophils/100 WBC (Bld) 1.7 % Normal 0.0-2.5 A [facility] ([place]) Comment on above: Performed By: #### B MP, LIPID, GFR #### [address] [address] Eosinophil, Absolute 0.3 10 3/mcL Normal 0.0-0.4 Formerly [facility], [facility] ([place]) Comment on above: Performed By: #### B MP, LIPID, GFR #### [address] [address] Eosinophils/100 WBC (Bld) 2.6 % Normal 0.0-7.0 [facility] ([place]) Comment on above: Performed By: #### B MP, LIPID, GFR #### [address] [address] Lymphocyte, Absolute 1.8 10 3/mcL Normal 0.8-3.9 [facility]ly [facility], [facility] ([place]) Comment on above: Performed By: #### B MP, LIPID, GFR #### [address] [address] Lymphocytes/100 WBC (Bld) 17.9 % Normal 10.0-50.0 [facility] ([place]) Comment on above: Performed By: #### B MP, LIPID, GFR #### [address] [address] Monocyte, Absolute 1.0 10 3/mcL Normal 0.2-1.0 [facility]ly [facility] ([place]) Comment on above: Performed By: #### B MP, LIPID, GFR #### [address] [address] Monocytes/100 WBC (Bld) 9.8 % Normal 1.7-13.0 Formerly [facility] ([place]) Comment on above: Performed By: #### B MP, LIPID, GFR #### [address] [address] Neutrophils/100 WBC (Bld) 68.0 % Normal 37.0-80.0 [facility] ([place]) Comment on above: Performed By: #### B MP, LIPID, GFR #### [address] [address] .GFRon 02-27-2024 GFR 91 ml/min/1.73sqm Normal [facility] ([place]) Comment on above: Result Comment: GFR Population mean for , Non- Americans Ages 20-29 = 116 mL/min/1.73 sq.m. Ages 30-39 = 107 mL/min/1.73 sq.m. Ages 40-49 = 99 mL/min/1.73 sq.m. Ages 50-59 = 93 mL/min/1.73 sq.m. Ages 60-69 = 85 mL/min/1.73 sq.m. Ages 70+ = 75 mL/min/1.73 sq.m. Chronic Kidney Disease: Less than 60 mL/min/1.73 square meters End Stage Renal Disease: Less than 15 mL/min/1.73 square meters Performed By: #### B MP, LIPID, GFR #### [address] [address] GFR Non- 75 ml/min/1.73sqm Normal [facility] ([place]) Comment on above: Result Comment: GFR Population mean for , Non- Americans Ages 20-29 = 116 mL/min/1.73 sq.m. Ages 30-39 = 107 mL/min/1.73 sq.m. Ages 40-49 = 99 mL/min/1.73 sq.m. Ages 50-59 = 93 mL/min/1.73 sq.m. Ages 60-69 = 85 mL/min/1.73 sq.m. Ages 70+ = 75 mL/min/1.73 sq.m. Chronic Kidney Disease: Less than 60 mL/min/1.73 square meters End Stage Renal Disease: Less than 15 mL/min/1.73 square meters Performed By: #### B MP, LIPID, GFR #### [address] [address] .MDWon 02-27-2024 Monocyte Distribution Width 18.87 Normal 0.00-20.00 [facility] ([place]) Comment on above: Result Comment: For ED adult patients suspected of sepsis, MDW<=20.0 does not rule out sepsis or risk of sepsis Performed By: #### B MP, LIPID, GFR #### [address] [address] .NEUABSon 02-27-2024 Neutrophil, Absolute 7.0 10 3/mcL High 2.9-6.2 [facility], [facility] ([place]) Comment on above: Performed By: #### B MP, LIPID, GFR #### [address] [address] BMPon 02-27-2024 BUN/Creatinine Ratio 22 ratio Normal 7-27 [facility] ([place]) Comment on above: Performed By: #### B MP, LIPID, GFR #### [address] [address] Calcium [Mass/Vol] 10.1 mg/dL Normal 8.4-10.2 [facility], [facility] ([place]) Comment on above: Performed By: #### B MP, LIPID, GFR #### [address] [address] Chloride [Moles/Vol] 104 mmol/L Normal 98-107 [facility] ([place]) Comment on above: Performed By: #### B MP, LIPID, GFR #### [address] [address] CO2 [Moles/Vol] 24 mmol/L Normal 23-31 [facility] ([place]) Comment on above: Performed By: #### B MP, LIPID, GFR #### [address] [address] Creatinine [Mass/Vol] 0.74 mg/dL Normal 0.55-1.02 [facility] ([place]) Comment on above: Performed By: #### B MP, LIPID, GFR #### [address] [address] Electrolyte Balance 11.0 mEq/L Normal 4.0-15.0 [facility] [place]) Comment on above: Performed By: #### B MP, LIPID, GFR #### [address] [address] Glucose [Mass/Vol] 99 mg/dL Normal 83-110 [facility] ([place]) Comment on above: Performed By: #### B MP, LIPID, GFR #### [address] [address] Potassium [Moles/Vol] 4.6 mmol/L Normal 3.5-5.1 [facility] ([place]) Comment on above: Performed By: #### B MP, LIPID, GFR #### [address] [address] Sodium [Moles/Vol] 139 mmol/L Normal 136-145 [facility], [facility] ([place]) Comment on above: Performed By: #### B MP, LIPID, GFR #### [address] [address] Urea nitrogen [Mass/Vol] 16 mg/dL Normal 7-18 [facility] ([place]) Comment on above: Performed By: #### B MP, LIPID, GFR #### [address] [address] CBCon 02-27-2024 Erythrocyte distribution width (RBC) [Ratio] 13.8 % Normal 11.5-14.5 [facility] ([place]) Comment on above: Performed By: #### B MP, LIPID, GFR #### [address] [address] Hematocrit (Bld) [Volume fraction] 44.0 % Normal 37.0-47.0 [facility] ([place]) Comment on above: Performed By: #### B MP, LIPID, GFR #### [place] [address]677 Hgb 14.7 G/dL Normal 12.0-16.0 [facility] ([place]) Comment on above: Performed By: #### B MP, LIPID, GFR #### [address] [address] MCH (RBC) [Entitic mass] 28.7 pg Normal 27.0-31.2 [facility] ([place] Comment on above: Performed By: #### B MP, LIPID, GFR #### [place] [id number] MCHC 33.5 G/dL Normal 33.0-37.0 [facility] ([place]) Comment on above: Performed By: #### B MP, LIPID, GFR #### [address] [address] MCV (RBC) [Entitic vol] 85.6 fL Normal 80.0-94.0 A [facility] ([place]) Comment on above: Performed By: #### B MP, LIPID, GFR #### [address] [address] Platelet 246 10 3/mcL Normal 130-400 [facility] ([place]) Comment on above: Performed By: #### B MP, LIPID, GFR #### [address] [address] Platelet mean volume (Bld) [Entitic vol] 8.1 fL Normal 7.4-10.4 [facility] ([place]) Comment on above: Performed By: #### B MP, LIPID, GFR #### [address] [address] RBC 5.14 10 6/mcL Normal 4.20-5.40 [facility] ([place]) Comment on above: Performed By: #### B MP, LIPID, GFR #### [address] [address] WBC 10.3 10 3/mcL Normal 4.6-10.8 [facility] ([place]) Comment on above: Performed By: #### B MP, LIPID, GFR #### [address] [address] [address] HEAD OR BRAIN W/O CONTRAS Ton 02-27-2024 CT HEAD OR BRAIN W/O CONTRAST ORIGINAL HISTORY: Dizziness COMPARISON: 25 May 2019 TECHNIQUE: Routine noncontrast head CT, with sagittal and coronal reconstructions. This exam was performed according to our departmental dose optimization program, and includes the following measures where applicable: automated exposure control, adjustment of the mAs and/or kVp according to patient size and/or exam, and an iterative reconstruction algorithm. FINDINGS: The ventricles and sulci are normal to mildly enlarged. There are no abnormal intra or extra-axial fluid collections. There is mild to moderate irregular decreased attenuation in the cerebral white matter. Buenrostro-white matter differentiation is maintained. The calvaria and the bones of the base of the skull are intact. IMPRESSION: Small vessel ischemic disease and mild volume loss. Interpreted by: Fabian Del Rio MD Preliminary Report By: Fabain Del Rio MD Electronically signed By Fabian Del Rio MD Dictated Date: 02/27/2024 3:58:03 PM Prelim Date: 02/27/2024 3:59:00 PM Sign Date: 02/27/2024 3:59:00 PM Ordering Provider: TARA Anders [facility] ([place]) LABORATORYOrdered By: SYSTEM SYSTEM on 02-27-2024 Basophil, Absolute 0.2 103/mcL Normal 0.0 - 0.2 10^3/mcL AO Workflow SS Basophils/100 WBC (Bld) 1.7 % Normal 0.0 - 2.5 % AO Workflow SS Calcium [Mass/Vol] 10.1 mg/dL Normal 8.4 - 10. 2 mg/dL AO ADM SS Chloride [Moles/Vol] 104 mmol/L Normal 98 - 10 7 mmol/L AO ADM SS CO2 [Moles/Vol] 24 mmol/L Normal 23 - 31 mmol/L AO ADM SS Creatinine [Mass/Vol] 0.74 mg/dL Normal 0.55 - 1.02 mg/dL AO ADM SS Electrolyte Balance 11.0 mEq/L Normal 4.0 - 15 .0 mEq/L AO ADM SS Eosinophil, Absolute 0.3 103/mcL Normal 0.0 - 0 .4 10^3/mcL AO Workflow SS Eosinophils/100 WBC (Bld) 2.6 % Normal 0.0 - 7.0 % AO Workflow SS Erythrocyte distribution width (RBC) [Ratio] 13.8 % Normal 11.5 - 14.5 % AO Workflow SS GFR/1.73 sq M.predicted among blacks MDRD (S/P/Bld) [Vol rate/Area] 91 ml/min/1.73sqm Invalid Interpretation Code AO Chemistry S Comment on above: Interpretive Data: GFR Population mean for , Non- Americans Ages 20-29 = 116 mL/min/1.73 sq.m. Ages 30-39 = 107 mL/min/1.73 sq.m. Ages 40-49 = 99 mL/min/1.73 sq.m. Ages 50-59 = 93 mL/min/1.73 sq.m. Ages 60-69 = 85 mL/min/1.73 sq.m. Ages 70+ = 75 mL/min/1.73 sq.m. Chronic Kidney Disease: Less than 60 mL/min/1.73 square meters End Stage Renal Disease: Less than 15 mL/min/1.73 square meters GFR/1.73 sq M.predicted among non-blacks MDRD (S/P/Bld) [Vol rate/Area] 75 ml/min/1.73sqm Invalid Interpretation Code AO Chemistry S Comment on above: Interpretive Data: GFR Population mean for , Non- Americans Ages 20-29 = 116 mL/min/1.73 sq.m. Ages 30-39 = 107 mL/min/1.73 sq.m. Ages 40-49 = 99 mL/min/1.73 sq.m. Ages 50-59 = 93 mL/min/1.73 sq.m. Ages 60-69 = 85 mL/min/1.73 sq.m. Ages 70+ = 75 mL/min/1.73 sq.m. Chronic Kidney Disease: Less than 60 mL/min/1.73 square meters End Stage Renal Disease: Less than 15 mL/min/1.73 square meters Glucose [Mass/Vol] 99 mg/dL Normal 83 - 110 mg/dL AO ADM SS Hematocrit (Bld) [Volume fraction] 44.0 % Normal 37.0 - 47.0 % AO Workflow SS Hemoglobin (Bld) [Mass/Vol] 14.7 G/dL Normal 12.0 - 16.0 G/dL AO Workflow SS Lymphocyte, Absolute 1.8 103/mcL Normal 0.8 - 3 .9 10^3/mcL AO Workflow SS Lymphocytes/100 WBC (Bld) 17.9 % Normal 10.0 - 50.0 % AO Workflow SS MCH (RBC) [Entitic mass] 28.7 pg Normal 27.0 - 31.2 pg AO Workflow SS MCHC 33.5 G/dL Normal 33.0 - 37.0 G/dL AO Workflow SS MCV (RBC) [Entitic vol] 85.6 fL Normal 80.0 - 94.0 fL AO Workflow SS Monocyte distribution width Auto (Bld) [Entitic vol] 18.87 1 Normal 0.00 - 20.00 AO Workflow SS Comment on above: Result Comment: For ED adult patients suspected of sepsis, MDW<=20.0 does not rule out sepsis or risk of sepsis Monocyte, Absolute 1.0 103/mcL Normal 0.2 - 1.0 10^3/mcL AO Workflow SS Monocytes/100 WBC (Bld) 9.8 % Normal 1.7 - 13.0 % AO Workflow SS Neutrophil, Absolute 7.0 103/mcL High 2.9 - 6 .2 10^3/mcL AO Workflow SS Neutrophils/100 WBC (Bld) 68.0 % Normal 37.0 - 80.0 % AO Workflow SS Platelet mean volume (Bld) [Entitic vol] 8.1 fL Normal 7.4 - 10.4 fL AO Workflow SS Platelets (Bld) [#/Vol] 246 103/mcL Normal 130 - 400 10^3/mcL AO Workflow SS Potassium [Moles/Vol] 4.6 mmol/L Normal 3.5 - 5.1 mmol/L AO ADM SS RBC (Bld) [#/Vol] 5.14 106/mcL Normal 4.20 - 5.4 0 10^6/mcL AO Workflow SS Sodium [Moles/Vol] 139 mmol/L Normal 136 - 145 mmol/L AO ADM SS Troponin I.cardiac DL <= 0.01 ng/mL [Mass/Vol] 12 ng/L Normal 0 - 51 ng/L AO ADM SS Comment on above: Interpretive Data: H igh Sensitive Troponin I Reference Ranges: Female: 0-51 ng/L Male: 0-76 ng/L Testing performed on [employer] using a homogeneous sandwich chemiluminescent immunoassay based on [employer] technology. Urea nitrogen [Mass/Vol] 16 mg/dL Normal 7 - 18 mg/dL AO ADM SS Urea nitrogen/Creatinine [Mass ratio] 22 ratio Normal 7 - 27 ratio AO ADM SS WBC (Bld) [#/Vol] 10.3 103/mcL Normal 4.6 - 10.8 10^3/mcL AO Workflow SS TROPHSon 02-27-2024 High Sensitivity Troponin I 12 ng/L Normal 0-51 [facility] ([place]) Comment on above: Result Comment: High Sensitive Troponin I Reference Ranges: Female: 0-51 ng/L Male: 0-76 ng/L Testing performed on [employer] using a homogeneous sandwich chemiluminescent immunoassay based on [employer] technology. Performed By: #### B MP, LIPID, GFR #### Smita [address] [address] .Auto Diffon 02-14-2024 Basophil, Absolute 0.1 10 3/mcL Normal 0.0-0.2 [facility] ([place]) Comment on above: Performed By: #### M ALBR #### mSita [address] [address] Basophils/100 WBC (Bld) 1.0 % Normal 0.0-2.5 A [facility] ([place]) Comment on above: Performed By: #### M ALBR #### [address] [address] Eosinophil, Absolute 0.2 10 3/mcL Normal 0.0-0.4 [facility], [facility] ([place]) Comment on above: Performed By: #### M ALBR #### [address] [address] Eosinophils/100 WBC (Bld) 3.5 % Normal 0.0-7.0 [facility] ([place]) Comment on above: Performed By: #### M ALBR #### [address] [address] Lymphocyte, Absolute 1.4 10 3/mcL Normal 0.8-3.9 [facility] ([place]) Comment on above: Performed By: #### M ALBR #### [address] [address] Lymphocytes/100 WBC (Bld) 22.0 % Normal 10.0-50.0 [facility] ([place]) Comment on above: Performed By: #### M ALBR #### [address] [address] Monocyte, Absolute 0.6 10 3/mcL Normal 0.2-1.0 [facility] ([place]) Comment on above: Performed By: #### M ALBR #### [address] [address] Monocytes/100 WBC (Bld) 10.4 % Normal 1.7-13.0 [facility]ly [facility] ([place]) Comment on above: Performed By: #### M ALBR #### [address] [address] Neutrophils/100 WBC (Bld) 63.1 % Normal 37.0-80.0 [facility] ([place]) Comment on above: Performed By: #### M ALBR #### [address] [address] .GFRon 02-14-2024 GFR 88 ml/min/1.73sqm Normal [facility] ([place]) Comment on above: Result Comment: GFR Population mean for , Non- Americans Ages 20-29 = 116 mL/min/1.73 sq.m. Ages 30-39 = 107 mL/min/1.73 sq.m. Ages 40-49 = 99 mL/min/1.73 sq.m. Ages 50-59 = 93 mL/min/1.73 sq.m. Ages 60-69 = 85 mL/min/1.73 sq.m. Ages 70+ = 75 mL/min/1.73 sq.m. Chronic Kidney Disease: Less than 60 mL/min/1.73 square meters End Stage Renal Disease: Less than 15 mL/min/1.73 square meters Performed By: #### B MP, LIPID, GFR #### [address] [address] GFR Non- 73 ml/min/1.73sqm Normal [facility] ([place]) Comment on above: Result Comment: GFR Population mean for , Non- Americans Ages 20-29 = 116 mL/min/1.73 sq.m. Ages 30-39 = 107 mL/min/1.73 sq.m. Ages 40-49 = 99 mL/min/1.73 sq.m. Ages 50-59 = 93 mL/min/1.73 sq.m. Ages 60-69 = 85 mL/min/1.73 sq.m. Ages 70+ = 75 mL/min/1.73 sq.m. Chronic Kidney Disease: Less than 60 mL/min/1.73 square meters End Stage Renal Disease: Less than 15 mL/min/1.73 square meters Performed By: #### B MP, LIPID, GFR #### [address] [address] .MDWon 02-14-2024 Monocyte Distribution Width 17.95 Normal 0.00-20.00 [facility] ([place]) Comment on above: Result Comment: For ED adult patients suspected of sepsis, MDW<=20.0 does not rule out sepsis or risk of sepsis Performed By: #### B MP, LIPID, GFR #### [address] [address] .NEUABSon 02-14-2024 Neutrophil, Absolute 4.0 10 3/mcL Normal 2.9-6.2 [facility] ([place]) Comment on above: Performed By: #### M ALBR #### [address] [address] BMPon 02-14-2024 BUN/Creatinine Ratio 22 ratio Normal 7-27 [facility] ([place]) Comment on above: Performed By: #### B MP, LIPID, GFR #### [address] [address] Calcium [Mass/Vol] 10.0 mg/dL Normal 8.4-10.2 [facility] ([place]) Comment on above: Performed By: #### B MP, LIPID, GFR #### [address] [address] Chloride [Moles/Vol] 108 mmol/L High 98-107 [facility] ([place]) Comment on above: Performed By: #### B MP, LIPID, GFR #### [address] [address] CO2 [Moles/Vol] 27 mmol/L Normal 23-31 [facility] ([place]) Comment on above: Performed By: #### B MP, LIPID, GFR #### [address] [address] Creatinine [Mass/Vol] 0.76 mg/dL Normal 0.55-1.02 [facility] ([place]) Comment on above: Performed By: #### B MP, LIPID, GFR #### [address] [address] Electrolyte Balance 8.0 mEq/L Normal 4.0-15.0 [facility] [place]) Comment on above: Performed By: #### B MP, LIPID, GFR #### [address] [address] Glucose [Mass/Vol] 100 mg/dL Normal 83-110 [facility] ([place]) Comment on above: Performed By: #### B MP, LIPID, GFR #### [address] [address] Potassium [Moles/Vol] 4.4 mmol/L Normal 3.5-5.1 [facility] ([place]) Comment on above: Performed By: #### B MP, LIPID, GFR #### [address] [address] Sodium [Moles/Vol] 143 mmol/L Normal 136-145 [facility] ([place]) Comment on above: Performed By: #### B MP, LIPID, GFR #### Smita [address] [address] Urea nitrogen [Mass/Vol] 17 mg/dL Normal 7-18 [facility] ([place]) Comment on above: Performed By: #### B MP, LIPID, GFR #### Smita [address] [address] CBCon 02-14-2024 Erythrocyte distribution width (RBC) [Ratio] 14.1 % Normal 11.5-14.5 [facility] ([place]) Comment on above: Performed By: #### M ALBR #### [address] [address] Hematocrit (Bld) [Volume fraction] 43.1 % Normal 37.0-47.0 [facility] ([place]) Comment on above: Performed By: #### M ALBR #### [address] [address] Hgb 14.5 G/dL Normal 12.0-16.0 [facility] ([place]) Comment on above: Performed By: #### M ALBR #### [address] [address] MCH (RBC) [Entitic mass] 28.6 pg Normal 27.0-31.2 [facility] ([place]) Comment on above: Performed By: #### M ALBR #### [address] [address] MCHC 33.6 G/dL Normal 33.0-37.0 [facility] ([place]) Comment on above: Performed By: #### M ALBR #### [address] [address] MCV (RBC) [Entitic vol] 85.0 fL Normal 80.0-94.0 A [facility] ([place]) Comment on above: Performed By: #### M ALBR #### [place] [address] [place], [place] [address] Platelet 231 10 3/mcL Normal 130-400 [facility] ([place]) Comment on above: Performed By: #### M ALBR #### Smita [address] [address] Platelet mean volume (Bld) [Entitic vol] 7.6 fL Normal 7.4-10.4 [facility] ([place]) Comment on above: Performed By: #### M ALBR #### [address] [address] RBC 5.07 10 6/mcL Normal 4.20-5.40 [facility] ([place]) Comment on above: Performed By: #### M ALBR #### [address] [address] WBC 6.3 10 3/mcL Normal 4.6-10.8 [facility] ([place]) Comment on above: Performed By: #### M ALBR #### [address] [address] LABORATORYOrdered By: Carolynn Gonzales on 02-14-2024 Appearance (U) Clear (02/14/24 11:15 AM) Normal Clear AO Auto Urine SS Bilirubin Ql (U) Negative (02/14/24 11:15 AM) Normal Negative AO Auto Urine SS Color (U) Yellow (02/14/24 11:15 AM) Normal AO Auto Urine SS Glucose Test strip (U) [Mass/Vol] Negative Normal Negative AO Auto Urine SS Hemoglobin Auto test strip (U) [Mass/Vol] Negative (02/14/24 11:15 AM) Normal Negative AO Auto Urine SS Ketones Ql (U) Negative Normal Negative AO Auto Urine SS UA Leuk Est Negative (02/14/24 11:15 AM) Normal Negative AO Auto Urine SS UA Nitrite Negative (02/14/24 11:15 AM) Normal Negative AO Auto Urine SS UA pH 7.0 (02/14/24 11:15 AM) Normal 5.0 - 8.0 AO Auto Urine SS UA Protein Negative Normal Negative AO Auto Urine SS UA Spec Grav 1.020 (02/14/24 11:15 AM) Normal 1.015-1.025 AO Auto Urine SS UA Specimen Type Clean Catch (02/14/24 11:15 AM) Normal AO Auto Urine SS UA Urobilinogen 0.2 E.U./dL Normal 0.2-1.0 AO Auto Urine SS LABORATORYOrdered By: SYSTEM SYSTEM on 02-14-2024 Basophil, Absolute 0.1 103/mcL Normal 0.0 - 0.2 10^3/mcL AO Workflow SS Basophils/100 WBC (Bld) 1.0 % Normal 0.0 - 2.5 % AO Workflow SS Calcium [Mass/Vol] 10.0 mg/dL Normal 8.4 - 10. 2 mg/dL AO ADM SS Chloride [Moles/Vol] 108 mmol/L High 98 - 10 7 mmol/L AO ADM SS CO2 [Moles/Vol] 27 mmol/L Normal 23 - 31 mmol/L AO ADM SS Creatinine [Mass/Vol] 0.76 mg/dL Normal 0.55 - 1.02 mg/dL AO ADM SS Electrolyte Balance 8.0 mEq/L Normal 4.0 - 15 .0 mEq/L AO ADM SS Eosinophil, Absolute 0.2 103/mcL Normal 0.0 - 0 .4 10^3/mcL AO Workflow SS Eosinophils/100 WBC (Bld) 3.5 % Normal 0.0 - 7.0 % AO Workflow SS Erythrocyte distribution width (RBC) [Ratio] 14.1 % Normal 11.5 - 14.5 % AO Workflow SS GFR/1.73 sq M.predicted among blacks MDRD (S/P/Bld) [Vol rate/Area] 88 ml/min/1.73sqm Invalid Interpretation Code AO Chemistry S Comment on above: Interpretive Data: GFR Population mean for , Non- Americans Ages 20-29 = 116 mL/min/1.73 sq.m. Ages 30-39 = 107 mL/min/1.73 sq.m. Ages 40-49 = 99 mL/min/1.73 sq.m. Ages 50-59 = 93 mL/min/1.73 sq.m. Ages 60-69 = 85 mL/min/1.73 sq.m. Ages 70+ = 75 mL/min/1.73 sq.m. Chronic Kidney Disease: Less than 60 mL/min/1.73 square meters End Stage Renal Disease: Less than 15 mL/min/1.73 square meters GFR/1.73 sq M.predicted among non-blacks MDRD (S/P/Bld) [Vol rate/Area] 73 ml/min/1.73sqm Invalid Interpretation Code AO Chemistry S Comment on above: Interpretive Data: GFR Population mean for , Non- Americans Ages 20-29 = 116 mL/min/1.73 sq.m. Ages 30-39 = 107 mL/min/1.73 sq.m. Ages 40-49 = 99 mL/min/1.73 sq.m. Ages 50-59 = 93 mL/min/1.73 sq.m. Ages 60-69 = 85 mL/min/1.73 sq.m. Ages 70+ = 75 mL/min/1.73 sq.m. Chronic Kidney Disease: Less than 60 mL/min/1.73 square meters End Stage Renal Disease: Less than 15 mL/min/1.73 square meters Glucose [Mass/Vol] 100 mg/dL Normal 83 - 110 mg/dL AO ADM SS Hematocrit (Bld) [Volume fraction] 43.1 % Normal 37.0 - 47.0 % AO Workflow SS Hemoglobin (Bld) [Mass/Vol] 14.5 G/dL Normal 12.0 - 16.0 G/dL AO Workflow SS Lymphocyte, Absolute 1.4 103/mcL Normal 0.8 - 3 .9 10^3/mcL AO Workflow SS Lymphocytes/100 WBC (Bld) 22.0 % Normal 10.0 - 50.0 % AO Workflow SS MCH (RBC) [Entitic mass] 28.6 pg Normal 27.0 - 31.2 pg AO Workflow SS MCHC 33.6 G/dL Normal 33.0 - 37.0 G/dL AO Workflow SS MCV (RBC) [Entitic vol] 85.0 fL Normal 80.0 - 94.0 fL AO Workflow SS Monocyte distribution width Auto (Bld) [Entitic vol] 17.95 1 Normal 0.00 - 20.00 AO Workflow SS Comment on above: Result Comment: For ED adult patients suspected of sepsis, LIZY<=20.0 does not rule out sepsis or risk of sepsis Monocyte, Absolute 0.6 103/mcL Normal 0.2 - 1.0 10^3/mcL AO Workflow SS Monocytes/100 WBC (Bld) 10.4 % Normal 1.7 - 13.0 % AO Workflow SS Neutrophil, Absolute 4.0 103/mcL Normal 2.9 - 6 .2 10^3/mcL AO Workflow SS Neutrophils/100 WBC (Bld) 63.1 % Normal 37.0 - 80.0 % AO Workflow SS Platelet mean volume (Bld) [Entitic vol] 7.6 fL Normal 7.4 - 10.4 fL AO Workflow SS Platelets (Bld) [#/Vol] 231 103/mcL Normal 130 - 400 10^3/mcL AO Workflow SS Potassium [Moles/Vol] 4.4 mmol/L Normal 3.5 - 5.1 mmol/L AO ADM SS RBC (Bld) [#/Vol] 5.07 106/mcL Normal 4.20 - 5.4 0 10^6/mcL AO Workflow SS Sodium [Moles/Vol] 143 mmol/L Normal 136 - 145 mmol/L AO ADM SS Urea nitrogen [Mass/Vol] 17 mg/dL Normal 7 - 18 mg/dL AO ADM SS Urea nitrogen/Creatinine [Mass ratio] 22 ratio Normal 7 - 27 ratio AO ADM SS WBC (Bld) [#/Vol] 6.3 103/mcL Normal 4.6 - 10.8 10^3/mcL AO Workflow SS UAon 02-14-2024 Color (U) Yellow Normal [facility] ([place] Comment on above: Performed By: #### B MP, LIPID, GFR #### [address] [address] Glucose (U) [Mass/Vol] Negative Normal Negative [facility] ([place]) Comment on above: Performed By: #### B MP, LIPID, GFR #### [address] [address] Ketones Ql (U) Negative Normal Negative [facility] ([place] Comment on above: Performed By: #### B MP, LIPID, GFR #### [address] [address] UA Appear Clear Normal Clear [facility] ([place] Comment on above: Performed By: #### B MP, LIPID, GFR #### [address] [address] UA Blood Negative Normal Negative [facility] ([place] Comment on above: Performed By: #### B MP, LIPID, GFR #### [address] [address] UA Leuk Est Negative Normal Negative [facility] ([place] Comment on above: Performed By: #### B MP, LIPID, GFR #### [address] [address] UA Nitrite Negative Normal Negative [facility] ([place] Comment on above: Performed By: #### B MP, LIPID, GFR #### [address] [address] UA pH 7.0 Normal 5.0 - 8.0 [facility] ([place] Comment on above: Performed By: #### B MP, LIPID, GFR #### [address] [address] UA Protein Negative Normal Negative [facility] [place] Comment on above: Performed By: #### B MP, LIPID, GFR #### [address] [address] UA Spec Grav 1.020 Normal 1.015-1.025 [facility] ([place]) Comment on above: Performed By: #### B MP, LIPID, GFR #### [address] [address] UA Specimen Type Clean Catch Normal [facility] ([place]) Comment on above: Performed By: #### B MP, LIPID, GFR #### [address] [address] UA Urobilinogen 0.2 E.U./dL Normal 0.2-1.0 [facility] ([place]) Comment on above: Performed By: #### B MP, LIPID, GFR #### [address] [address] Urobilinogen (U) [Mass/Vol] Negative Normal Negative [facility] ([place]) Comment on above: Performed By: #### B MP, LIPID, GFR #### [address] [place], [place] [address] MRI BRAIN W/ + W/O CONTRASTo n 02-06-2024 MRI BRAIN W/ + W/O CONTRAST ORIGINAL EXAMINATION: MRI OF THE BRAIN WITHOUT AND WITH CONTRAST 02/06/2024 2:09 pm TECHNIQUE: Multiplanar multisequence MRI of the head/brain was performed without and with the administration of intravenous contrast. COMPARISON: CT head 05/25/2019 HISTORY: ORDERING SYSTEM PROVIDED HISTORY: Reason for Exam: persistent dizziness of years duraiton without relief from med changes, worse looking up. No spinning sensation FINDINGS: INTRACRANIAL STRUCTURES/VENTRICLES: There are multifocal confluent regions of FLAIR/T2 prolongation of the white matter, compatible with moderate chronic ischemic microvascular changes. There is mild diffuse cerebral volume loss. There is 3 mm chronic lacunar infarct at the posterior left frontal deep white matter. At the inferior surface the left tentorium, there is a 4 mm x 3 mm enhancing nodule, nonspecific, which may be compatible with meningioma. Follow-up study in 3 months may be useful to document stability and exclude neoplastic process. 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 There is no acute infarct. No mass effect or midline shift. No evidence of an acute intracranial hemorrhage. The ventricles and sulci are normal in size and configuration. The sellar/suprasellar regions appear unremarkable. The normal signal voids within the major intracranial vessels appear maintained. No abnormal focus of enhancement is seen within the brain. ORBITS: The visualized portion of the orbits demonstrate no acute abnormality. SINUSES: The visualized paranasal sinuses and mastoid air cells demonstrate no acute abnormality. BONES/SOFT TISSUES: The bone marrow signal intensity appears normal. The soft tissues demonstrate no acute abnormality. IMPRESSION: 1. No acute intracranial abnormality. 2. Moderate chronic ischemic microvascular changes. 3. 4 mm enhancing nodule at the inferior surface of the left tentorium, nonspecific, which may be compatible with meningioma. Follow-up study in 3 months may be useful to document stability and exclude neoplastic process. Interpreted by: Elias Armstrong Preliminary Report By: Elias Armstrong Electronically signed By Elias Armstrong Dictated Date: 02/06/2024 3:31:33 PM Prelim Date: 02/06/2024 4:06:44 PM Sign Date: 02/06/2024 4:06:44 PM Ordering Provider: [facility] ([place]) MRI SPINE CERVICAL W/O CONTR Saud 02-06-2024 MRI SPINE CERVICAL W/O CONTRAST ORIGINAL HISTORY: Neck trauma COMPARISON: 06 August 2019 TECHNIQUE: 1. Sagittal T1-weighted images. 2. Sagittal T2-weighted and T2*-weighted images. 3. Axial T2-weighted and T2*-weighted images. FINDINGS: There is straightening of the upper cervical lordosis. The individual vertebral bodies are intact. There is disc desiccation and disc space narrowing, mainly at C5-C6 and C6-C7. There is no abnormal signal within the cervical spinal cord. The visualized portion of the cord is unremarkable in appearance. Specific findings by level: C3-C4: There is minimal spondylosis. C4-C5: There is minimal spondylosis. C5-C6: There is mild spondylosis. There is mild uncovertebral hypertrophy. There is mild facet hypertrophy. There is mild stenosis. There is neural foraminal narrowing on the left. C6-C7: There is mild uncovertebral hypertrophy, greater on the left. C7-T1: There is a mild posterior disc bulge. 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 Milder degenerative changes at the remaining levels, without stenosis. Interpreted by: Fabian Del Rio MD Preliminary Report By: Fabian Del Rio MD Electronically signed By Fabian Del Rio MD Dictated Date: 02/06/2024 3:27:54 PM Prelim Date: 02/06/2024 3:30:54 PM Sign Date: 02/06/2024 3:30:54 PM Ordering Provider: [facility] ([place]) .Auto Diffon 01-09-2024 Basophil, Absolute 0.1 10 3/mcL Normal 0.0-0.2 [facility] ([place]) Comment on above: Performed By: #### A 1C, LIPID, CMP, MG, ADIFF, GFR, ANEU, FT4, TSH, VIDH, CBC #### [address] [address] #### B12 #### [address] [address] Basophils/100 WBC (Bld) 1.1 % Normal 0.0-2.5 A [facility] ([place]) Comment on above: Performed By: #### A 1C, LIPID, CMP, MG, ADIFF, GFR, ANEU, FT4, TSH, VIDH, CBC #### [place] [address] #### B12 #### [address] [address] Eosinophil, Absolute 0.3 10 3/mcL Normal 0.0-0.4 [facility] ([place]) Comment on above: Performed By: #### A 1C, LIPID, CMP, MG, ADIFF, GFR, ANEU, FT4, TSH, VIDH, CBC #### [place] [address] #### B12 #### [address] [address] Eosinophils/100 WBC (Bld) 4.3 % Normal 0.0-7.0 [facility] ([place]) Comment on above: Performed By: #### A 1C, LIPID, CMP, MG, ADIFF, GFR, ANEU, FT4, TSH, VIDH, CBC #### [address] [address] #### B12 #### [address] [address] Lymphocyte, Absolute 1.5 10 3/mcL Normal 0.8-3.9 [facility] ([place]) Comment on above: Performed By: #### A 1C, LIPID, CMP, MG, ADIFF, GFR, ANEU, FT4, TSH, VIDH, CBC #### [place] [address] #### B12 #### [address] [address] Lymphocytes/100 WBC (Bld) 21.8 % Normal 10.0-50.0 [facility] ([place]) Comment on above: Performed By: #### A 1C, LIPID, CMP, MG, ADIFF, GFR, ANEU, FT4, TSH, VIDH, CBC #### [address] [address] #### B12 #### [address] [address] Monocyte, Absolute 0.6 10 3/mcL Normal 0.2-1.0 [facility] ([place]) Comment on above: Performed By: #### A 1C, LIPID, CMP, MG, ADIFF, GFR, ANEU, FT4, TSH, VIDH, CBC #### [address] [address] #### B12 #### [address] [address] Monocytes/100 WBC (Bld) 8.8 % Normal 1.7-13.0 A [facility] ([place]) Comment on above: Performed By: #### A 1C, LIPID, CMP, MG, ADIFF, GFR, ANEU, FT4, TSH, VIDH, CBC #### [address] [address] #### B12 #### [address] [address] Neutrophils/100 WBC (Bld) 64.0 % Normal 37.0-80.0 [facility] ([place]) Comment on above: Performed By: #### A 1C, LIPID, CMP, MG, ADIFF, GFR, ANEU, FT4, TSH, VIDH, CBC #### [address] [address] #### B12 #### [address] [address] .GFRon 01-09-2024 GFR Non- 83 ml/min/1.73sqm Normal [facility] ([place]) Comment on above: Result Comment: GFR Population mean for , Non- Americans Ages 20-29 = 116 mL/min/1.73 sq.m. Ages 30-39 = 107 mL/min/1.73 sq.m. Ages 40-49 = 99 mL/min/1.73 sq.m. Ages 50-59 = 93 mL/min/1.73 sq.m. Ages 60-69 = 85 mL/min/1.73 sq.m. Ages 70+ = 75 mL/min/1.73 sq.m. Chronic Kidney Disease: Less than 60 mL/min/1.73 square meters End Stage Renal Disease: Less than 15 mL/min/1.73 square meters Performed By: #### M ALBR #### [address] [address] GFR 100 ml/min/1.73sqm Normal [facility] ([place]) Comment on above: Result Comment: GFR Population mean for , Non- Americans Ages 20-29 = 116 mL/min/1.73 sq.m. Ages 30-39 = 107 mL/min/1.73 sq.m. Ages 40-49 = 99 mL/min/1.73 sq.m. Ages 50-59 = 93 mL/min/1.73 sq.m. Ages 60-69 = 85 mL/min/1.73 sq.m. Ages 70+ = 75 mL/min/1.73 sq.m. Chronic Kidney Disease: Less than 60 mL/min/1.73 square meters End Stage Renal Disease: Less than 15 mL/min/1.73 square meters Performed By: #### M ALBR #### [address] [address] .NEUABSon 01-09-2024 Neutrophil, Absolute 4.3 10 3/mcL Normal 2.9-6.2 [facility] ([place]) Comment on above: Performed By: #### A 1C, LIPID, CMP, MG, ADIFF, GFR, ANEU, FT4, TSH, VIDH, CBC #### [address] [address] #### B12 #### [address] [address] A1Con 01-09-2024 HbA1c (Bld) [Mass fraction] 5.4 % Normal 4.3-6.4 [facility] ([place]) Comment on above: Performed By: #### A 1C, LIPID, CMP, MG, ADIFF, GFR, ANEU, FT4, TSH, VIDH, CBC #### [address] [address] #### B12 #### [address] [address] B12on 01-09-2024 Cobalamin (Vitamin B12) [Mass/Vol] 370 pg/mL Normal 211-911 [facility] ([place]) Comment on above: Performed By: #### M ALBR #### [place] [address] CBCon 01-09-2024 Erythrocyte distribution width (RBC) [Ratio] 13.5 % Normal 11.5-14.5 [facility] ([place]) Comment on above: Performed By: #### A 1C, LIPID, CMP, MG, ADIFF, GFR, ANEU, FT4, TSH, VIDH, CBC #### [place] [address] #### B12 #### [place] [address] Hematocrit (Bld) [Volume fraction] 45.1 % Normal 37.0-47.0 [facility] ([place]) Comment on above: Performed By: #### A 1C, LIPID, CMP, MG, ADIFF, GFR, ANEU, FT4, TSH, VIDH, CBC #### [place] [address] #### B12 #### [address] [place] [address] Hgb 15.1 G/dL Normal 12.0-16.0 [facility] ([place]) Comment on above: Performed By: #### A 1C, LIPID, CMP, MG, ADIFF, GFR, ANEU, FT4, TSH, VIDH, CBC #### [place] [address] #### B12 #### [address] [place] [address] MCH (RBC) [Entitic mass] 28.4 pg Normal 27.0-31.2 [facility] ([place]) Comment on above: Performed By: #### A 1C, LIPID, CMP, MG, ADIFF, GFR, ANEU, FT4, TSH, VIDH, CBC #### [place] [address] #### B12 #### [address] [place] [address] MCHC 33.6 G/dL Normal 33.0-37.0 [facility] ([place] Comment on above: Performed By: #### A 1C, LIPID, CMP, MG, ADIFF, GFR, ANEU, FT4, TSH, VIDH, CBC #### [place] [address] #### B12 #### [place] [address] MCV (RBC) [Entitic vol] 84.7 fL Normal 80.0-94.0 A [facility] ([place]) Comment on above: Performed By: #### A 1C, LIPID, CMP, MG, ADIFF, GFR, ANEU, FT4, TSH, VIDH, CBC #### [place] [address] #### B12 #### [place] [address] Platelet 258 10 3/mcL Normal 130-400 [facility] ([place] Comment on above: Performed By: #### A 1C, LIPID, CMP, MG, ADIFF, GFR, ANEU, FT4, TSH, VIDH, CBC #### [place] [address] #### B12 #### [place] [address] Platelet mean volume (Bld) [Entitic vol] 8.3 fL Normal 7.4-10.4 [facility] ([place] Comment on above: Performed By: #### A 1C, LIPID, CMP, MG, ADIFF, GFR, ANEU, FT4, TSH, VIDH, CBC #### [place] [address] #### B12 #### [place] [address] RBC 5.33 10 6/mcL Normal 4.20-5.40 [facility] ([place] Comment on above: Performed By: #### A 1C, LIPID, CMP, MG, ADIFF, GFR, ANEU, FT4, TSH, VIDH, CBC #### [address] [address] #### B12 #### [place] [address] WBC 6.8 10 3/mcL Normal 4.6-10.8 [facility] ([place] Comment on above: Performed By: #### A 1C, LIPID, CMP, MG, ADIFF, GFR, ANEU, FT4, TSH, VIDH, CBC #### [address] [address] #### B12 #### [place] [address] CMPon 01-09-2024 Albumin Level 3.4 G/dL Normal 3.4-4.8 [facility] ([place]) Comment on above: Performed By: #### M ALBR #### [address] [address] Albumin/Globulin [Mass ratio] 1.2 {ratio} Normal 1.1-2.5 [facility] ([place]) Comment on above: Performed By: #### M ALBR #### [address] [address] ALP [Catalytic activity/Vol] 130 U/L Normal 40-135 [facility] ([place]) Comment on above: Performed By: #### M ALBR #### [address] [address] ALT [Catalytic activity/Vol] 17 U/L Normal 14-59 [facility] ([place]) Comment on above: Performed By: #### M ALBR #### [address] [address] AST [Catalytic activity/Vol] 12 U/L Normal 10-40 [facility] ([place]) Comment on above: Performed By: #### M ALBR #### [address] [address] Bili Total 0.4 mg/dL Normal 0.2-1.0 [facility] ([place]) Comment on above: Result Comment: Use of this assay is not recommended for patients undergoing treatment with eltrombopag due to the potential for falsely elevated results. Performed By: #### M ALBR #### [address] [address] BUN/Creatinine Ratio 21 ratio Normal 7-27 [facility] ([place]) Comment on above: Performed By: #### M ALBR #### [address] [address] Calcium [Mass/Vol] 10.0 mg/dL Normal 8.4-10.2 [facility] ([place]) Comment on above: Performed By: #### M ALBR #### [address] [address] Chloride [Moles/Vol] 106 mmol/L Normal 98-107 [facility] ([place]) Comment on above: Performed By: #### M ALBR #### [address] [address] CO2 [Moles/Vol] 24 mmol/L Normal 23-31 [facility] ([place]) Comment on above: Performed By: #### M ALBR #### [address] [address] Creatinine [Mass/Vol] 0.68 mg/dL Normal 0.55-1.02 [facility] ([place]) Comment on above: Performed By: #### M ALBR #### [address] [address] Electrolyte Balance 12.0 mEq/L Normal 4.0-15.0 [facility] [place] Comment on above: Performed By: #### M ALBR #### [address] [address] Globulin 2.9 G/dL Normal [facility] ([place]) Comment on above: Performed By: #### M ALBR #### [address] [place], [place] [address] Glucose [Mass/Vol] 88 mg/dL Normal 83-110 [facility] ([place]) Comment on above: Performed By: #### M ALBR #### [address] [place], [place] [address] Potassium [Moles/Vol] 4.6 mmol/L Normal 3.5-5.1 [facility] ([place]) Comment on above: Performed By: #### M ALBR #### [address] [address] Sodium [Moles/Vol] 142 mmol/L Normal 136-145 [facility] ([place]) Comment on above: Performed By: #### M ALBR #### [address] [address] Total Protein 6.3 G/dL Low 6.4-8.2 [facility] ([place]) Comment on above: Performed By: #### M ALBR #### [address] [address] Urea nitrogen [Mass/Vol] 14 mg/dL Normal 7-18 [facility] ([place]) Comment on above: Performed By: #### M ALBR #### [address] [address] FT4on 01-09-2024 Free T4 [Mass/Vol] 1.02 ng/dL Normal 0.76-1.46 [facility] ([place]) Comment on above: Performed By: #### M ALBR #### [address] [address] LABORATORYOrdered By: Allyson Dudley on 01-09-2024 Albumin DL <= 20 mg/L (U) [Mass/Vol] 846 mcg/dL Invalid Interpretation Code AO ADM SS Albumin/Creatinine DL <= 20 mg/L (U) [Mass ratio] 8 mcg/mg Normal 0 - 30 mcg/mg AO ADM SS Creatinine (U) [Mass/Vol] 102.7 mg/dL Normal 28.0 - 117.0 mg/dL AO ADM SS Cholesterol [Mass/Vol] 258 mg/dL High 0 - 2 00 mg/dL AO ADM SS Comment on above: Interpretive Data: C holesterol Reference Interval: Less than 200 Desirable 200-239 Borderline high risk 240 and above High risk Cholesterol in HDL [Mass/Vol] 47 mg/dL Normal 40 - 60 mg/dL AO ADM SS Cholesterol in LDL [Mass/Vol] 177 mg/dL High 0 - 130 mg/dL AO ADM SS Triglyceride [Mass/Vol] 172 mg/dL High 0 - 150 mg/dL AO ADM SS Comment on above: Interpretive Data: T riglyceride Reference Interval: Less than 150 Normal 150-199 Borderline high risk 200-499 High risk 500 or higher Very high risk LABORATORYOrdered By: SYSTEM SYSTEM on 01-09-2024 25-hydroxyvitamin D3 [Mass/Vol] 55.7 ng/mL Invalid Interpretation Code AO ADM SS Comment on above: Interpretive Data: I nterpretive Values Based on Total 25(OH) Vitamin D: Deficient <20 ng/mL Insufficient 20 - <30 ng/mL Sufficient 30-100 ng/mL Albumin BCP dye [Mass/Vol] 3.4 G/dL Normal 3.4 - 4.8 G/dL AO ADM SS Albumin/Globulin [Mass ratio] 1.2 {ratio} Normal 1.1 - 2.5 ratio AO ADM SS ALP [Catalytic activity/Vol] 130 U/L Normal 40 - 135 U/L AO ADM SS ALT With P-5'-P [Catalytic activity/Vol] 17 U/L Normal 14 - 59 U/L AO ADM SS AST With P-5'-P [Catalytic activity/Vol] 12 U/L Normal 10 - 40 U/L AO ADM SS Basophil, Absolute 0.1 103/mcL Normal 0.0 - 0.2 10^3/mcL AO Workflow SS Basophils/100 WBC (Bld) 1.1 % Normal 0.0 - 2.5 % AO Workflow SS Bilirubin [Mass/Vol] 0.4 mg/dL Normal 0.2 - 1 .0 mg/dL AO ADM SS Comment on above: Interpretive Data: U se of this assay is not recommended for patients undergoing treatment with eltrombopag due to the potential for falsely elevated results. Calcium [Mass/Vol] 10.0 mg/dL Normal 8.4 - 10. 2 mg/dL AO ADM SS Chloride [Moles/Vol] 106 mmol/L Normal 98 - 10 7 mmol/L AO ADM SS CO2 [Moles/Vol] 24 mmol/L Normal 23 - 31 mmol/L AO ADM SS Cobalamin (Vitamin B12) [Mass/Vol] 370 pg/mL Normal 211 - 911 pg/mL AH ADM SS Creatinine [Mass/Vol] 0.68 mg/dL Normal 0.55 - 1.02 mg/dL AO ADM SS Electrolyte Balance 12.0 mEq/L Normal 4.0 - 15 .0 mEq/L AO ADM SS Eosinophil, Absolute 0.3 103/mcL Normal 0.0 - 0 .4 10^3/mcL AO Workflow SS Eosinophils/100 WBC (Bld) 4.3 % Normal 0.0 - 7.0 % AO Workflow SS Erythrocyte distribution width (RBC) [Ratio] 13.5 % Normal 11.5 - 14.5 % AO Workflow SS Free T4 [Mass/Vol] 1.02 ng/dL Normal 0.76 - 1. 46 ng/dL AO ADM SS GFR/1.73 sq M.predicted among blacks MDRD (S/P/Bld) [Vol rate/Area] 100 ml/min/1.73sqm Invalid Interpretation Code AO Chemistry S Comment on above: Interpretive Data: GFR Population mean for , Non- Americans Ages 20-29 = 116 mL/min/1.73 sq.m. Ages 30-39 = 107 mL/min/1.73 sq.m. Ages 40-49 = 99 mL/min/1.73 sq.m. Ages 50-59 = 93 mL/min/1.73 sq.m. Ages 60-69 = 85 mL/min/1.73 sq.m. Ages 70+ = 75 mL/min/1.73 sq.m. Chronic Kidney Disease: Less than 60 mL/min/1.73 square meters End Stage Renal Disease: Less than 15 mL/min/1.73 square meters GFR/1.73 sq M.predicted among non-blacks MDRD (S/P/Bld) [Vol rate/Area] 83 ml/min/1.73sqm Invalid Interpretation Code AO Chemistry S Comment on above: Interpretive Data: GFR Population mean for , Non- Americans Ages 20-29 = 116 mL/min/1.73 sq.m. Ages 30-39 = 107 mL/min/1.73 sq.m. Ages 40-49 = 99 mL/min/1.73 sq.m. Ages 50-59 = 93 mL/min/1.73 sq.m. Ages 60-69 = 85 mL/min/1.73 sq.m. Ages 70+ = 75 mL/min/1.73 sq.m. Chronic Kidney Disease: Less than 60 mL/min/1.73 square meters End Stage Renal Disease: Less than 15 mL/min/1.73 square meters Globulin 2.9 G/dL Invalid Interpretation Code AO ADM SS Glucose [Mass/Vol] 88 mg/dL Normal 83 - 110 mg/dL AO ADM SS HbA1c (Bld) [Mass fraction] 5.4 % Normal 4.3 - 6.4 % AO ADM SS Hematocrit (Bld) [Volume fraction] 45.1 % Normal 37.0 - 47.0 % AO Workflow SS Hemoglobin (Bld) [Mass/Vol] 15.1 G/dL Normal 12.0 - 16.0 G/dL AO Workflow SS Lymphocyte, Absolute 1.5 103/mcL Normal 0.8 - 3 .9 10^3/mcL AO Workflow SS Lymphocytes/100 WBC (Bld) 21.8 % Normal 10.0 - 50.0 % AO Workflow SS Magnesium [Mass/Vol] 2.0 mg/dL Normal 1.8 - 2 .4 mg/dL AO ADM SS MCH (RBC) [Entitic mass] 28.4 pg Normal 27.0 - 31.2 pg AO Workflow SS MCHC 33.6 G/dL Normal 33.0 - 37.0 G/dL AO Workflow SS MCV (RBC) [Entitic vol] 84.7 fL Normal 80.0 - 94.0 fL AO Workflow SS Monocyte, Absolute 0.6 103/mcL Normal 0.2 - 1.0 10^3/mcL AO Workflow SS Monocytes/100 WBC (Bld) 8.8 % Normal 1.7 - 13.0 % AO Workflow SS Neutrophil, Absolute 4.3 103/mcL Normal 2.9 - 6 .2 10^3/mcL AO Workflow SS Neutrophils/100 WBC (Bld) 64.0 % Normal 37.0 - 80.0 % AO Workflow SS Platelet mean volume (Bld) [Entitic vol] 8.3 fL Normal 7.4 - 10.4 fL AO Workflow SS Platelets (Bld) [#/Vol] 258 103/mcL Normal 130 - 400 10^3/mcL AO Workflow SS Potassium [Moles/Vol] 4.6 mmol/L Normal 3.5 - 5.1 mmol/L AO ADM SS Protein [Mass/Vol] 6.3 G/dL Low 6.4 - 8.2 G/dL AO ADM SS RBC (Bld) [#/Vol] 5.33 106/mcL Normal 4.20 - 5.4 0 10^6/mcL AO Workflow SS Sodium [Moles/Vol] 142 mmol/L Normal 136 - 145 mmol/L AO ADM SS TSH Qn 2.06 m[IU]/L Normal 0.36 - 3.74 mcIU/mL AO ADM SS Urea nitrogen [Mass/Vol] 14 mg/dL Normal 7 - 18 mg/dL AO ADM SS Urea nitrogen/Creatinine [Mass ratio] 21 ratio Normal 7 - 27 ratio AO ADM SS WBC (Bld) [#/Vol] 6.8 103/mcL Normal 4.6 - 10.8 10^3/mcL AO Workflow SS LIPIDon 01-09-2024 Cholesterol [Mass/Vol] 258 mg/dL High 0-200 [facility] ([place] Comment on above: Result Comment: Chol esterol Reference Interval: Less than 200 Desirable 200-239 Borderline high risk 240 and above High risk Performed By: #### M ALBR #### [address] [address] Cholesterol in HDL [Mass/Vol] 47 mg/dL Normal 40-60 [facility] ([place]) Comment on above: Performed By: #### M ALBR #### [address] [address] Cholesterol in LDL [Mass/Vol] 177 mg/dL High 0-130 [facility] ([place]) Comment on above: Performed By: #### M ALBR #### [address] [place] [place], [place] [address] Triglyceride [Mass/Vol] 172 mg/dL High 0-150 A [facility] ([place]) Comment on above: Result Comment: Trig lyceride Reference Interval: Less than 150 Normal 150-199 Borderline high risk 200-499 High risk 500 or higher Very high risk Performed By: #### M ALBR #### [address] [address] MALBRon 01-09-2024 U Creatinine 102.7 mg/dL Normal 28.0-117.0 [facility] ([place]) Comment on above: Performed By: #### M ALBR #### [address] [address] U Microalb 846 mcg/dL Normal [facility] ([place]) Comment on above: Performed By: #### M ALBR #### [address] [address] U Ratio Alb/Cre 8 mcg/mg Normal 0-30 [facility] ([place]) Comment on above: Performed By: #### M ALBR #### [address] [address] MGon 01-09-2024 Magnesium [Mass/Vol] 2.0 mg/dL Normal 1.8-2.4 [facility] ([place]) Comment on above: Performed By: #### A 1C, LIPID, CMP, MG, ADIFF, GFR, ANEU, FT4, TSH, VIDH, CBC #### [address] [address] #### B12 #### [place] [address] TSHon 01-09-2024 TSH Qn 2.06 m[IU]/L Normal 0.36-3.74 [facility] ([place]) Comment on above: Performed By: #### M ALBR #### [address] [address] VIDHon 01-09-2024 Vit. D 25-Hydroxy 55.7 ng/mL Normal [facility] ([place]) Comment on above: Result Comment: Inte rpretive Values Based on Total 25(OH) Vitamin D: Deficient <20 ng/mL Insufficient 20 - <30 ng/mL Sufficient 30-100 ng/mL Performed By: #### M ALBR #### [address] [address] BD BONE DENSITY DEXA AXIAL S KELETONon 07-31-2023 BD BONE DENSITY DEXA AXIAL SKELETON ORIGINAL EXAMINATION: BONE DENSITOMETRY 07/31/2023 1:30 pm TECHNIQUE: A bone density dual x-ray absorptiometry (DEXA) scan was performed of the axial (e.g. hips, spine) and/or appendicular (e.g. radius) skeleton as appropriate. COMPARISON: 06/20/2021 HISTORY: ORDERING SYSTEM PROVIDED HISTORY: Reason for Exam: Osteoporosis Screening FINDINGS: T Score Right Femoral Neck: -0.3 Right Femoral Neck: 0.813 (g/cm2) T Score Right Hip: -0.3 Right Hip: 0.907 (g/cm2) T Score Lumbar Spine: 1.1 Lumbar Spine: 1.166 (g/cmd2) BMD Change from previous Hip: -8.5% BMD Change from previous Lumbar Spine: -1.3% IMPRESSION: Normal bone mineral density by WHO criteria. World Health Organization criteria: (Comparing with young normal sex matched population) - Normal: T-score at or above -1 SD (standard deviation) - Osteopenia: T-score between -1 and -2.5 SD - Osteoporosis: T-score at or below -2.5 SD The NOF recommends that FDA-approved medical therapies be considered in post-menopausal women and men age >/= 50 years with a: * Hip or vertebral fracture, or * T-score of /= 20% for major osteoporotic fractures or * >/= 3% for hip fractures All treatment decisions require clinical judgement and consideration of individual patient factors, including patient preferences, comorbidities, previous drug use, risk factors not captured in the FRAX registered model (e.g., frailty, falls, vitamin D deficiency, increased bone turnover, interval significant decline in bone density) and possible under- or over-estimation of fracture risk by FRAX. Interpreted by: Niall Mobley DO Preliminary Report By: Niall Mobley DO Electronically signed By Niall Mobley DO Dictated Date: 07/31/2023 2:15:57 PM Prelim Date: 07/31/2023 2:17:04 PM Sign Date: 07/31/2023 2:17:04 PM Ordering Provider: JAMES LEACH [facility] ([place]) .GFRon 07-25-2023 GFR 75 ml/min/1.73sqm Normal [facility] ([place]) Comment on above: Result Comment: GFR Population mean for , Non- Americans Ages 20-29 = 116 mL/min/1.73 sq.m. Ages 30-39 = 107 mL/min/1.73 sq.m. Ages 40-49 = 99 mL/min/1.73 sq.m. Ages 50-59 = 93 mL/min/1.73 sq.m. Ages 60-69 = 85 mL/min/1.73 sq.m. Ages 70+ = 75 mL/min/1.73 sq.m. Chronic Kidney Disease: Less than 60 mL/min/1.73 square meters End Stage Renal Disease: Less than 15 mL/min/1.73 square meters Performed By: #### B MP, LIPID, GFR #### [address] [address] GFR Non- 62 ml/min/1.73sqm Normal [facility] ([place]) Comment on above: Result Comment: GFR Population mean for , Non- Americans Ages 20-29 = 116 mL/min/1.73 sq.m. Ages 30-39 = 107 mL/min/1.73 sq.m. Ages 40-49 = 99 mL/min/1.73 sq.m. Ages 50-59 = 93 mL/min/1.73 sq.m. Ages 60-69 = 85 mL/min/1.73 sq.m. Ages 70+ = 75 mL/min/1.73 sq.m. Chronic Kidney Disease: Less than 60 mL/min/1.73 square meters End Stage Renal Disease: Less than 15 mL/min/1.73 square meters Performed By: #### B MP, LIPID, GFR #### [address] [address] BMPon 07-25-2023 BUN/Creatinine Ratio 19 ratio Normal 7- [facility] ([place]) Comment on above: Performed By: #### B MP, LIPID, GFR #### [address] [address] Calcium [Mass/Vol] 10.8 mg/dL High 8.4-10.2 [facility]ly [facility], [facility] ([place]) Comment on above: Performed By: #### B MP, LIPID, GFR #### [address] [address] Chloride [Moles/Vol] 107 mmol/L Normal 98-107 [facility] ([place]) Comment on above: Performed By: #### B MP, LIPID, GFR #### [address] [address] CO2 [Moles/Vol] 25 mmol/L Normal 23-31 [facility] ([place]) Comment on above: Performed By: #### B MP, LIPID, GFR #### [address] [address] Creatinine [Mass/Vol] 0.88 mg/dL Normal 0.55-1.02 [facility] ([place]) Comment on above: Performed By: #### B MP, LIPID, GFR #### [address] [address] Electrolyte Balance 13.0 mEq/L Normal 4.0-15.0 [facility] ([place]) Comment on above: Performed By: #### B MP, LIPID, GFR #### [address] [address] Glucose [Mass/Vol] 100 mg/dL Normal 83-110 [facility], [facility] ([place]) Comment on above: Performed By: #### B MP, LIPID, GFR #### [address] [address] Potassium [Moles/Vol] 4.2 mmol/L Normal 3.5-5.1 [facility] ([place]) Comment on above: Performed By: #### B MP, LIPID, GFR #### [address] [address] Sodium [Moles/Vol] 145 mmol/L Normal 136-145 [facility], [facility] ([place]) Comment on above: Performed By: #### B MP, LIPID, GFR #### [address] [address] Urea nitrogen [Mass/Vol] 17 mg/dL Normal 7-18 [facility] ([place]) Comment on above: Performed By: #### B MP, LIPID, GFR #### [address] [place] [id number] [place] [address] LABORATORYOrdered By: SYSTEM SYSTEM on 07-25-2023 Calcium [Mass/Vol] 10.8 mg/dL High 8.4 - 10. 2 mg/dL AO ADM SS Chloride [Moles/Vol] 107 mmol/L Normal 98 - 10 7 mmol/L AO ADM SS CO2 [Moles/Vol] 25 mmol/L Normal 23 - 31 mmol/L AO ADM SS Creatinine [Mass/Vol] 0.88 mg/dL Normal 0.55 - 1.02 mg/dL AO ADM SS Electrolyte Balance 13.0 mEq/L Normal 4.0 - 15 .0 mEq/L AO ADM SS GFR/1.73 sq M.predicted among blacks MDRD (S/P/Bld) [Vol rate/Area] 75 ml/min/1.73sqm Invalid Interpretation Code AO Chemistry S Comment on above: Interpretive Data: GFR Population mean for , Non- Americans Ages 20-29 = 116 mL/min/1.73 sq.m. Ages 30-39 = 107 mL/min/1.73 sq.m. Ages 40-49 = 99 mL/min/1.73 sq.m. Ages 50-59 = 93 mL/min/1.73 sq.m. Ages 60-69 = 85 mL/min/1.73 sq.m. Ages 70+ = 75 mL/min/1.73 sq.m. Chronic Kidney Disease: Less than 60 mL/min/1.73 square meters End Stage Renal Disease: Less than 15 mL/min/1.73 square meters GFR/1.73 sq M.predicted among non-blacks MDRD (S/P/Bld) [Vol rate/Area] 62 ml/min/1.73sqm Invalid Interpretation Code AO Chemistry S Comment on above: Interpretive Data: GFR Population mean for , Non- Americans Ages 20-29 = 116 mL/min/1.73 sq.m. Ages 30-39 = 107 mL/min/1.73 sq.m. Ages 40-49 = 99 mL/min/1.73 sq.m. Ages 50-59 = 93 mL/min/1.73 sq.m. Ages 60-69 = 85 mL/min/1.73 sq.m. Ages 70+ = 75 mL/min/1.73 sq.m. Chronic Kidney Disease: Less than 60 mL/min/1.73 square meters End Stage Renal Disease: Less than 15 mL/min/1.73 square meters Glucose [Mass/Vol] 100 mg/dL Normal 83 - 110 mg/dL AO ADM SS Potassium [Moles/Vol] 4.2 mmol/L Normal 3.5 - 5.1 mmol/L AO ADM SS Sodium [Moles/Vol] 145 mmol/L Normal 136 - 145 mmol/L AO ADM SS Urea nitrogen [Mass/Vol] 17 mg/dL Normal 7 - 18 mg/dL AO ADM SS Urea nitrogen/Creatinine [Mass ratio] 19 ratio Normal 7 - 27 ratio AO ADM SS LABORATORYOrdered By: Latosha Celis on 07-25-2023 Cholesterol [Mass/Vol] 195 mg/dL Normal 0 - 2 00 mg/dL AO ADM SS Comment on above: Interpretive Data: C holesterol Reference Interval: Less than 200 Desirable 200-239 Borderline high risk 240 and above High risk Cholesterol in HDL [Mass/Vol] 52 mg/dL Normal 40 - 60 mg/dL AO ADM SS Cholesterol in LDL [Mass/Vol] 108 mg/dL Normal 0 - 130 mg/dL AO ADM SS Triglyceride [Mass/Vol] 176 mg/dL High 0 - 150 mg/dL AO ADM SS Comment on above: Interpretive Data: T riglyceride Reference Interval: Less than 150 Normal 150-199 Borderline high risk 200-499 High risk 500 or higher Very high risk LIPIDon 07-25-2023 Cholesterol [Mass/Vol] 195 mg/dL Normal 0-200 [facility] ([place]) Comment on above: Result Comment: Chol esterol Reference Interval: Less than 200 Desirable 200-239 Borderline high risk 240 and above High risk Performed By: #### B MP, LIPID, GFR #### [address] [address] Cholesterol in HDL [Mass/Vol] 52 mg/dL Normal 40-60 [facility] ([place]) Comment on above: Performed By: #### B MP, LIPID, GFR #### [address] [address] Cholesterol in LDL [Mass/Vol] 108 mg/dL Normal 0-130 [facility] ([place]) Comment on above: Performed By: #### B MP, LIPID, GFR #### [place] [address] [place], [place] [address] Triglyceride [Mass/Vol] 176 mg/dL High 0-150 A [facility] ([place]) Comment on above: Result Comment: Trig lyceride Reference Interval: Less than 150 Normal 150-199 Borderline high risk 200-499 High risk 500 or higher Very high risk Performed By: #### B MP, LIPID, GFR #### [address] [address] [place], [place] [address] LABORATORYOrdered By: Erin Boateng on 03-01-2022 Albumin BCP dye [Mass/Vol] 3.5 G/dL Invalid Interpretation Code 3.4 - 4.8 G/dL AO ADM SS Albumin/Globulin [Mass ratio] 1.2 {ratio} Invalid Interpretation Code 1.1 - 2.5 ratio AO ADM SS ALP [Catalytic activity/Vol] 141 U/L Invalid Interpretation Code 40 - 135 U/L AO ADM SS ALT With P-5'-P [Catalytic activity/Vol] 22 U/L Invalid Interpretation Code 14 - 59 U/L AO ADM SS AST With P-5'-P [Catalytic activity/Vol] 17 U/L Invalid Interpretation Code 10 - 40 U/L AO ADM SS Bilirubin [Mass/Vol] 0.3 mg/dL Invalid Interpretation Code 0.2 - 1.0 mg/dL AO ADM SS Calcium [Mass/Vol] 10.1 mg/dL Invalid Interpretation Code 8.4 - 10.2 mg/dL AO ADM SS Chloride [Moles/Vol] 106 mmol/L Invalid Interpretation Code 98 - 107 mmol/L AO ADM SS Cholesterol [Mass/Vol] 171 mg/dL Invalid Interpretation Code 0 - 200 mg/dL AO ADM SS Cholesterol in HDL [Mass/Vol] 48 mg/dL Invalid Interpretation Code 40 - 60 mg/dL AO ADM SS Cholesterol in LDL [Mass/Vol] 95 mg/dL Invalid Interpretation Code 0 - 130 mg/dL AO ADM SS CO2 [Moles/Vol] 26 mmol/L Invalid Interpretation Code 23 - 31 mmol/L AO ADM SS Creatinine [Mass/Vol] 0.70 mg/dL Invalid Interpretation Code 0.55 - 1.02 mg/dL AO ADM SS Electrolyte Balance 10.0 mEq/L Invalid Interpretation Code 4.0 - 15.0 mEq/L AO ADM SS Ferritin [Mass/Vol] 123.0 ng/mL Invalid Interpretation Code 8.0 - 252.0 ng/mL AO ADM SS Globulin 2.9 G/dL Invalid Interpretation Code AO ADM SS Glucose [Mass/Vol] 97 mg/dL Invalid Interpretation Code 83 - 110 mg/dL AO ADM SS Iron [Mass/Vol] 79 ug/dL Invalid Interpretation Code 50 - 170 mcg/dL AO ADM SS Iron binding capacity [Mass/Vol] 312 mcg/dL Invalid Interpretation Code 250 - 450 mcg/dL AO ADM SS Iron Sat 25 1 Invalid Interpretation Code AO ADM SS Potassium [Moles/Vol] 4.8 mmol/L Invalid Interpretation Code 3.5 - 5.1 mmol/L AO ADM SS Protein [Mass/Vol] 6.4 G/dL Invalid Interpretation Code 6.4 - 8.2 G/dL AO ADM SS Sodium [Moles/Vol] 142 mmol/L Invalid Interpretation Code 136 - 145 mmol/L AO ADM SS Triglyceride [Mass/Vol] 139 mg/dL Invalid Interpretation Code 0 - 150 mg/dL AO ADM SS TSH Qn 2.89 m[IU]/L Invalid Interpretation Code 0.36 - 3.74 mcIU/mL AO ADM SS Urea nitrogen [Mass/Vol] 17 mg/dL Invalid Interpretation Code 7 - 18 mg/dL AO ADM SS Urea nitrogen/Creatinine [Mass ratio] 24 ratio Invalid Interpretation Code 7 - 27 ratio AO ADM SS LABORATORYOrdered By: Akosua Gruber on 03-01-2022 Basophil, Absolute 0.0 103/mcL Invalid Interpretation Code 0.0 - 0.2 10^3/mcL AO Workflow SS Basophils/100 WBC (Bld) 0.4 % Invalid Interpretation Code 0.0 - 2.5 % AO Workflow SS Eosinophil, Absolute 0.4 103/mcL Invalid Interpretation Code 0.0 - 0.4 10^3/mcL AO Workflow SS Eosinophils/100 WBC (Bld) 3.5 % Invalid Interpretation Code 0.0 - 7.0 % AO Workflow SS Erythrocyte distribution width (RBC) [Ratio] 13.9 % Invalid Interpretation Code 11.5 - 14.5 % AO Workflow SS Hematocrit (Bld) [Volume fraction] 43.7 % Invalid Interpretation Code 37.0 - 47.0 % AO Workflow SS Hemoglobin (Bld) [Mass/Vol] 14.8 G/dL Invalid Interpretation Code 12.0 - 16.0 G/dL AO Workflow SS Lymphocyte, Absolute 1.8 103/mcL Invalid Interpretation Code 0.8 - 3.9 10^3/mcL AO Workflow SS Lymphocytes/100 WBC (Bld) 16.9 % Invalid Interpretation Code 10.0 - 50.0 % AO Workflow SS MCH (RBC) [Entitic mass] 28.0 pg Invalid Interpretation Code 27.0 - 31.2 pg AO Workflow SS MCHC 33.8 G/dL Invalid Interpretation Code 33.0 - 37.0 G/dL AO Workflow SS MCV (RBC) [Entitic vol] 82.8 fL Invalid Interpretation Code 80.0 - 94.0 fL AO Workflow SS Monocyte, Absolute 1.0 103/mcL Invalid Interpretation Code 0.2 - 1.0 10^3/mcL AO Workflow SS Monocytes/100 WBC (Bld) 9.1 % Invalid Interpretation Code 1.7 - 13.0 % AO Workflow SS Neutrophil, Absolute 7.4 103/mcL Invalid Interpretation Code 2.9 - 6.2 10^3/mcL AO Workflow SS Neutrophils/100 WBC (Bld) 70.1 % Invalid Interpretation Code 37.0 - 80.0 % AO Workflow SS Platelet mean volume (Bld) [Entitic vol] 8.1 fL Invalid Interpretation Code 7.4 - 10.4 fL AO Workflow SS Platelets (Bld) [#/Vol] 289 103/mcL Invalid Interpretation Code 130 - 400 10^3/mcL AO Workflow SS RBC (Bld) [#/Vol] 5.28 106/mcL Invalid Interpretation Code 4.20 - 5.40 10^6/mcL AO Workflow SS WBC 10.5 103/mcL Invalid Interpretation Code 4.6 - 10.8 10^3/mcL AO Workflow SS LABORATORYOrdered By: SYSTEM SYSTEM on 03-01-2022 Cobalamin (Vitamin B12) [Mass/Vol] 343 pg/mL Invalid Interpretation Code 211 - 911 pg/mL AH ADM SS GFR 98 ml/min/1.73sqm Invalid Interpretation Code AO Chemistry S GFR Non- 81 ml/min/1.73sqm Invalid Interpretation Code AO Chemistry S Monocyte distribution width Auto (Bld) [Entitic vol] Not Performed 1 *NA* (03/01/22 2:46 PM) Invalid Interpretation Code 0.00 - 20.00 AO Hematology S Comment on above: Result Comment: MDW testing performed only on adult ER patients between the ages of 18-89 years. LABORATORYOrdered By: Latosha Celis on 03-01-2022 HbA1c (Bld) [Mass fraction] 5.3 % Invalid Interpretation Code 4.3 - 6.4 % AO ADM SS LABORATORYOrdered By: Carolynn Gonzales on 09-22-2021 Basophil, Absolute 0.10 103/mcL Invalid Interpretation Code 0.00 - 0.19 10^3/mcL AO Auto Heme SS Basophils/100 WBC (Bld) 1.3 % Invalid Interpretation Code 0.0 - 2.5 % AO Auto Heme SS Eosinophil, Absolute 0.60 103/mcL Invalid Interpretation Code 0.00 - 0.40 10^3/mcL AO Auto Heme SS Eosinophils/100 WBC (Bld) 6.2 % Invalid Interpretation Code 0.0 - 7.0 % AO Auto Heme SS Erythrocyte distribution width (RBC) [Ratio] 14.1 % Invalid Interpretation Code 11.5 - 14.5 % AO Auto Heme SS Hematocrit (Bld) [Volume fraction] 42.3 % Invalid Interpretation Code 37.0 - 47.0 % AO Auto Heme SS Hemoglobin (Bld) [Mass/Vol] 14.0 G/dL Invalid Interpretation Code 12.0 - 16.0 G/dL AO Auto Heme SS Lymphocyte, Absolute 1.50 103/mcL Invalid Interpretation Code 0.77 - 3.85 10^3/mcL AO Auto Heme SS Lymphocytes/100 WBC (Bld) 15.4 % Invalid Interpretation Code 10.0 - 50.0 % AO Auto Heme SS MCH (RBC) [Entitic mass] 28.1 pg Invalid Interpretation Code 27.0 - 31.2 pg AO Auto Heme SS MCHC (RBC) [Mass/Vol] 33.2 G/dL Invalid Interpretation Code 33.0 - 37.0 G/dL AO Auto Heme SS MCV (RBC) [Entitic vol] 84.8 fL Invalid Interpretation Code 80.0 - 94.0 fL AO Auto Heme SS Monocyte, Absolute 0.90 103/mcL Invalid Interpretation Code 0.15 - 1.00 10^3/mcL AO Auto Heme SS Monocytes/100 WBC (Bld) 9.1 % Invalid Interpretation Code 1.7 - 13.0 % AO Auto Heme SS Neutrophil, Absolute 6.50 103/mcL Invalid Interpretation Code 2.85 - 6.16 10^3/mcL AO Auto Heme SS Neutrophils/100 WBC (Bld) 68.0 % Invalid Interpretation Code 37.0 - 80.0 % AO Auto Heme SS Platelet mean volume (Bld) [Entitic vol] 8.4 fL Invalid Interpretation Code 7.4 - 10.4 fL AO Auto Heme SS Platelets (Bld) [#/Vol] 286 103/mcL Invalid Interpretation Code 130 - 400 10^3/mcL AO Auto Heme SS RBC (Bld) [#/Vol] 4.99 106/mcL Invalid Interpretation Code 4.20 - 5.40 10^6/mcL AO Auto Heme SS WBC (Bld) [#/Vol] 9.60 103/mcL Invalid Interpretation Code 4.60 - 10.80 10^3/mcL AO Auto Heme SS LABORATORYOrdered By: Carolynn Gonzales on 05-25-2021 Albumin BCP dye [Mass/Vol] 3.5 G/dL Invalid Interpretation Code 3.4 - 4.8 G/dL AO ADM SS Albumin/Globulin [Mass ratio] 1.2 {ratio} Invalid Interpretation Code 1.1 - 2.5 ratio AO ADM SS ALP [Catalytic activity/Vol] 138 U/L Invalid Interpretation Code 40 - 135 U/L AO ADM SS ALT With P-5'-P [Catalytic activity/Vol] 24 U/L Invalid Interpretation Code 14 - 59 U/L AO ADM SS AST With P-5'-P [Catalytic activity/Vol] 21 U/L Invalid Interpretation Code 10 - 40 U/L AO ADM SS Basophil, Absolute 0.10 103/mcL Invalid Interpretation Code 0.00 - 0.19 10^3/mcL AO Auto Heme SS Basophils/100 WBC (Bld) 0.9 % Invalid Interpretation Code 0.0 - 2.5 % AO Auto Heme SS Bilirubin [Mass/Vol] 0.3 mg/dL Invalid Interpretation Code 0.2 - 1.0 mg/dL AO ADM SS Calcium [Mass/Vol] 10.4 mg/dL Invalid Interpretation Code 8.4 - 10.2 mg/dL AO ADM SS Chloride [Moles/Vol] 105 mmol/L Invalid Interpretation Code 98 - 107 mmol/L AO ADM SS Cholesterol [Mass/Vol] 179 mg/dL Invalid Interpretation Code 0 - 200 mg/dL AO ADM SS Cholesterol in HDL [Mass/Vol] 49 mg/dL Invalid Interpretation Code 40 - 60 mg/dL AO ADM SS Cholesterol in LDL [Mass/Vol] 105 mg/dL Invalid Interpretation Code 0 - 130 mg/dL AO ADM SS CO2 [Moles/Vol] 28 mmol/L Invalid Interpretation Code 23 - 31 mmol/L AO ADM SS Creatinine [Mass/Vol] 0.67 mg/dL Invalid Interpretation Code 0.55 - 1.02 mg/dL AO ADM SS Electrolyte Balance 8.0 mEq/L Invalid Interpretation Code AO ADM SS Eosinophil, Absolute 0.70 103/mcL Invalid Interpretation Code 0.00 - 0.40 10^3/mcL AO Auto Heme SS Eosinophils/100 WBC (Bld) 5.9 % Invalid Interpretation Code 0.0 - 7.0 % AO Auto Heme SS Erythrocyte distribution width (RBC) [Ratio] 13.9 % Invalid Interpretation Code 11.5 - 14.5 % AO Auto Heme SS Globulin 3.0 G/dL Invalid Interpretation Code AO ADM SS Glucose [Mass/Vol] 100 mg/dL Invalid Interpretation Code 83 - 110 mg/dL AO ADM SS Hematocrit (Bld) [Volume fraction] 43.5 % Invalid Interpretation Code 37.0 - 47.0 % AO Auto Heme SS Hemoglobin (Bld) [Mass/Vol] 14.1 G/dL Invalid Interpretation Code 12.0 - 16.0 G/dL AO Auto Heme SS Lymphocyte, Absolute 1.90 103/mcL Invalid Interpretation Code 0.77 - 3.85 10^3/mcL AO Auto Heme SS Lymphocytes/100 WBC (Bld) 16.7 % Invalid Interpretation Code 10.0 - 50.0 % AO Auto Heme SS MCH (RBC) [Entitic mass] 28.3 pg Invalid Interpretation Code 27.0 - 31.2 pg AO Auto Heme SS MCHC (RBC) [Mass/Vol] 32.5 G/dL Invalid Interpretation Code 33.0 - 37.0 G/dL AO Auto Heme SS MCV (RBC) [Entitic vol] 87.1 fL Invalid Interpretation Code 80.0 - 94.0 fL AO Auto Heme SS Monocyte, Absolute 1.10 103/mcL Invalid Interpretation Code 0.15 - 1.00 10^3/mcL AO Auto Heme SS Monocytes/100 WBC (Bld) 9.3 % Invalid Interpretation Code 1.7 - 13.0 % AO Auto Heme SS Neutrophil, Absolute 7.70 103/mcL Invalid Interpretation Code 2.85 - 6.16 10^3/mcL AO Auto Heme SS Neutrophils/100 WBC (Bld) 67.2 % Invalid Interpretation Code 37.0 - 80.0 % AO Auto Heme SS Platelet mean volume (Bld) [Entitic vol] 8.0 fL Invalid Interpretation Code 7.4 - 10.4 fL AO Auto Heme SS Platelets (Bld) [#/Vol] 279 103/mcL Invalid Interpretation Code 130 - 400 10^3/mcL AO Auto Heme SS Potassium [Moles/Vol] 4.5 mmol/L Invalid Interpretation Code 3.5 - 5.1 mmol/L AO ADM SS Protein [Mass/Vol] 6.5 G/dL Invalid Interpretation Code 6.4 - 8.2 G/dL AO ADM SS RBC (Bld) [#/Vol] 5.00 106/mcL Invalid Interpretation Code 4.20 - 5.40 10^6/mcL AO Auto Heme SS Sodium [Moles/Vol] 141 mmol/L Invalid Interpretation Code 136 - 145 mmol/L AO ADM SS Triglyceride [Mass/Vol] 126 mg/dL Invalid Interpretation Code 0 - 150 mg/dL AO ADM SS Urea nitrogen [Mass/Vol] 17 mg/dL Invalid Interpretation Code 7 - 18 mg/dL AO ADM SS Urea nitrogen/Creatinine [Mass ratio] 25 ratio Invalid Interpretation Code 7 - 27 ratio AO ADM SS WBC (Bld) [#/Vol] 11.50 103/mcL Invalid Interpretation Code 4.60 - 10.80 10^3/mcL AO Auto Heme SS LABORATORYOrdered By: SYSTEM SYSTEM on 05-25-2021 GFR 103 ml/min/1.73sqm Invalid Interpretation Code AO Chemistry S GFR Non- 85 ml/min/1.73sqm Invalid Interpretation Code AO Chemistry S OBSOLETEon 08-11-2019 OBSOLETE Refill (JEAN) YURI QUINTERO ([id number]) 1940 F Date Time Provider Department 08/11/19 JIE BARRY During your visit today, we recorded the following information about you: Allergies As of Date: 08/11/2019 (Not on File) Date Reviewed: Never Reviewed Reason for Visit: Refill Request [94] Problem List As Of Date: 08/11/2019 (None) Encounter Status:Closed by MADDIE CASE on 08/28/19 Normal [facility] Pulmonary Function Studieson 02-02-2017 Pulmonary Function Studies Normal [facility] Vital Signs Date Time Vital Sign Value Performing Clinician Facility 11-10-2024 20:59-0400 Body temperature 98.2 [degF] Dr. Urbano Foss Work Phone: 5(237)995-605574 [place] [address] 11-10-2024 20:59-0400 Diastolic blood pressure 47 mm[Hg] Dr. Urbano Foss Work Phone: 2(710)324-928961 [address] 11-10-2024 20:59-0400 Heart rate 58 /min Dr. Urbano Foss Work Phone: 5(526)859-482574 [place] [address] 11-10-2024 20:59-0400 Respiratory rate 16 /min Dr. Urbano Foss Work Phone: 2(592)702-019874 [place] [address] 11-10-2024 20:59-0400 SaO2% (BldA) [Mass fraction] 99 % Dr. Urbano Foss Work Phone: 0(190)726-332874 [place] [address] 11-10-2024 20:59-0400 Systolic blood pressure 127 mm[Hg] Dr. Urbano Foss Work Phone: 6(361)280-623774 [place] [address] 11-10-2024 20:19-0400 Inhaled oxygen flow rate 2 L/min Dr. Urbano Foss Work Phone: 0(524)159-445774 [place] [address] 11-10-2024 18:21-0400 Body height 144.[address] Urbano Foss Work Phone: 0(469)423-556774 [place] [address] 11-10-2024 18:21-0400 Body mass index (BMI) [Ratio] 36.4 kg/m2 Dr. Urbano Foss Work Phone: 6(468)852-869174 [place] [address] 11-10-2024 18:21-0400 Body weight 76.[address] Urbano Foss Work Phone: 0(168)668-971042 [place] [address] 09-18-2024 13:14-0500 Body temperature 97.7 [degF] Dr. Urbano Foss Work Phone: 8(416)116-677042 [place] [address] 09-18-2024 13:14-0500 Diastolic blood pressure 57 mm[Hg] Dr. Urbano Foss Work Phone: 7(312)458-933742 [place] [address] 09-18-2024 13:14-0500 Heart rate 66 /min Dr. Urbano Mir DO Work Phone: 6(067)321-488242 [place] [address] 09-18-2024 13:14-0500 Respiratory rate 13 /min Dr. rUbano Foss Work Phone: 3(713)053-280442 [place] [address] 09-18-2024 13:14-0500 SaO2% (BldA) [Mass fraction] 97 % Dr. Urbano Foss Work Phone: 9(914)272-066242 [place] [address] 09-18-2024 13:14-0500 Systolic blood pressure 123 mm[Hg] Dr. Urbano Foss Work Phone: 4(655)084-037742 [place] [address] 09-18-2024 09:52-0500 Body mass index (BMI) [Ratio] 37.5 kg/m2 Dr. Urbano Foss Work Phone: 2(191)762-514842 [place] [address] 09-18-2024 09:52-0500 Body weight 78.[address] Urbano Foss Work Phone: 5(510)418-815142 [place] [address] 09-18-2024 09:52-0500 Inhaled oxygen flow rate 4 L/min Dr. Urbano Foss Work Phone: 6(975)999-804442 [place] [address] 09-02-2024 19:46-0500 Heart rate 86 /min Dr. Urbano Foss Work Phone: 8(553)982-771542 [place] [address] 09-02-2024 19:46-0500 Inhaled oxygen flow rate 2 L/min Dr. Urbano Foss Work Phone: 5(670)513-749574 [place] [address] 09-02-2024 19:46-0500 Respiratory rate 20 /min Dr. Urbano Mir DO Work Phone: 7(086)409-678174 [place] [address] 09-02-2024 19:46-0500 SaO2% (BldA) [Mass fraction] 92 % Dr. Urbano Foss Work Phone: 4(573)141-636074 [place] [address] 09-02-2024 19:35-0500 Body temperature 97.7 [degF] Dr. Urbano Foss Work Phone: 3(772)193-196974 [place] [address] 09-02-2024 19:35-0500 Diastolic blood pressure 49 mm[Hg] Dr. Urbano Mir DO Work Phone: 1(270)591-078842 [place] [address] 09-02-2024 19:35-0500 Systolic blood pressure 126 mm[Hg] Dr. Urbano Foss Work Phone: 5(046)859-335542 [place] [address] 09-01-2024 13:16-0500 Body weight 74.[address] Urbano Foss Work Phone: 3(254)176-759842 [place] [address] 08-29-2024 18:59-0500 Body mass index (BMI) [Ratio] 48.2 kg/m2 Dr. Urbano Foss Work Phone: 1(393)350-128642 [place] [address] 08-28-2024 16:00-0500 Diastolic blood pressure 80 mm[Hg] Dr. Urbano Foss Work Phone: 0(679)828-434042 [place] [address] 08-28-2024 16:00-0500 Heart rate 80 /min Dr. Urbano Foss Work Phone: 6(390)629-297774 [place] [address] 08-28-2024 16:00-0500 Respiratory rate 16 /min Dr. Urbano Foss Work Phone: 7(790)556-176674 [place] [address] 08-28-2024 16:00-0500 SaO2% (BldA) [Mass fraction] 98 % Dr. Urbano Foss Work Phone: 8(028)480-555874 [place] [address] 08-28-2024 16:00-0500 Systolic blood pressure 112 mm[Hg] Dr. Urbano Foss Work Phone: 2(971)276-258642 [place] [address] 08-28-2024 15:27-0500 Body temperature 97.9 [degF] Dr. Urbano Mir DO Work Phone: 9(727)176-801974 [place] [address] 08-28-2024 15:10-0500 Inhaled oxygen flow rate 2 L/min Dr. Urbano Mir DO Work Phone: 9(587)551-980042 [place] [address] 08-28-2024 10:35-0500 Body mass index (BMI) [Ratio] 35.7 kg/m2 Dr. Urbano Mir DO Work Phone: 2(710)940-375774 [place] [address] 08-28-2024 10:35-0500 Body weight [address] Urbano Mir DO Work Phone: 0(779)739-545442 [place] [address] 08-15-2024 14:15-0500 Body temperature 98.4 [degF] Dr. Urbano Foss Work Phone: 7(953)837-988242 [place] [address] 08-15-2024 14:15-0500 Diastolic blood pressure 76 mm[Hg] Dr. Urbano Foss Work Phone: 3(807)519-836942 [place] [address] 08-15-2024 14:15-0500 Heart rate 89 /min Dr. Urbano Mir DO Work Phone: 6(747)343-768642 [place] [address] 08-15-2024 14:15-0500 Inhaled oxygen flow rate 2 L/min Dr. Urbano Foss Work Phone: 1(036)997-392942 [place] [address] 08-15-2024 14:15-0500 Respiratory rate 18 /min Dr. Urbano Foss Work Phone: 3(627)199-339874 [place] [address] 08-15-2024 14:15-0500 SaO2% (BldA) [Mass fraction] 96 % Dr. Urbano Foss Work Phone: 9(683)965-790642 [place] [address] 08-15-2024 14:15-0500 Systolic blood pressure 140 mm[Hg] Dr. Urbano Foss Work Phone: 7(537)166-520142 [place] [address] 08-14-2024 06:00-0500 Body mass index (BMI) [Ratio] 38 kg/m2 Dr. Urbano Foss Work Phone: 2(542)[phone] [place] [address] 08-14-2024 06:00-0500 Body weight 79.[address] Urbano Foss Work Phone: 1(592)[phone] [place] [address] 07-23-2024 02:58-0500 Body temperature 99 [degF] Dr. Urbano Foss Work Phone: 5(522)[phone] [place] [address] 07-23-2024 02:58-0500 Diastolic blood pressure 57 mm[Hg] Dr. Urbano Foss Work Phone: 0(185)592-205042 [place] [address] 07-23-2024 02:58-0500 Heart rate 87 /min Dr. Urbano Foss Work Phone: 7(535)645-530774 [place] [address] 07-23-2024 02:58-0500 Respiratory rate 18 /min Dr. Urbano Foss Work Phone: 6(899)840-019742 [place] [address] 07-23-2024 02:58-0500 SaO2% (BldA) [Mass fraction] 95 % Dr. Urbano Foss Work Phone: 7(302)133-790674 [place] [address] 07-23-2024 02:58-0500 Systolic blood pressure 145 mm[Hg] Dr. Urbano Foss Work Phone: 1(565)560-806074 [place] [address] 07-22-2024 23:45-0500 Inhaled oxygen flow rate 2 L/min Dr. Urbano Foss Work Phone: 4(274)766-741274 [place] [address] 07-22-2024 23:43-0500 Body mass index (BMI) [Ratio] 34.3 kg/m2 Dr. Urbano Foss Work Phone: 6(508)548-035074 [place] [address] 07-22-2024 23:43-0500 Body weight 74.[address] Urbano Fsos Work Phone: 4(060)191-815374 [place] [address] 07-20-2024 14:05-0500 Body temperature 97.9 [degF] Dr. Urbano Foss Work Phone: 6(425)959-702974 [place] [address] 07-20-2024 14:05-0500 Diastolic blood pressure 56 mm[Hg] Dr. Urbano Foss Work Phone: 3(902)352-073374 [place] [address] 07-20-2024 14:05-0500 Heart rate 58 /min Dr. Urbano Foss Work Phone: [facility] 07-20-2024 14:05-0500 Inhaled oxygen flow rate 2 L/min Dr. Urbano Foss Work Phone: 5(098)080-099774 [place] [address] 07-20-2024 14:05-0500 Respiratory rate 16 /min Dr. Urbano Foss Work Phone: 0(526)667-685474 [place] [address] 07-20-2024 14:05-0500 SaO2% (BldA) [Mass fraction] 96 % Dr. Urbano Foss Work Phone: 4(007)436-285074 [place] [address] 07-20-2024 14:05-0500 Systolic blood pressure 146 mm[Hg] Dr. Urbano Foss Work Phone: 4(986)669-339874 [place] [address] 07-20-2024 06:00-0500 Body mass index (BMI) [Ratio] 36.6 kg/m2 Dr. Urbano Foss Work Phone: 4(307)350-378574 [place] [address] 07-20-2024 06:00-0500 Body weight 79.[address] Urbano Foss Work Phone: 6(451)646-495174 [place] [address] 07-17-2024 23:50-0500 Inhaled oxygen concentration 21 % Dr. Urbano Foss Work Phone: [facility] 05-08-2024 16:08-0400 Blood Pressure Cuff Size SHAHRIAR BRAY MD [facility] 05-08-2024 16:08-0400 Blood Pressure Location SHAHRIAR BRAY MD [facility] 05-08-2024 16:08-0400 Blood Pressure Method SHAHRIAR BRAY MD [facility] 05-08-2024 16:08-0400 Body temperature 97.88 [degF] SHAHRIAR BRAY MD [facility] 05-08-2024 16:08-0400 Diastolic Blood Pressure Non-Invasive 67 mm[Hg] SHAHRIAR BRAY MD [facility] 05-08-2024 16:08-0400 Heart rate 68 /min SHAHRIAR BRAY MD [address] [place] [address] 05-08-2024 16:08-0400 Reason For Taking VItal Signs SHAHRIAR BRAY MD [address] [place] [address] 05-08-2024 16:08-0400 Respiratory rate 18 /min SHAHRIAR BRAY MD [address] [place] [address] 05-08-2024 16:08-0400 Systolic Blood Pressure Non-Invasive 137 mm[Hg] SHAHRIAR BRAY MD [address] [place] [address] 05-08-2024 06:42-0400 Body temperature 97.7 [degF] SHAHRIAR BRAY MD [address] [place] [address] 05-08-2024 06:42-0400 Diastolic Blood Pressure Non-Invasive 56 mm[Hg] SHAHRIAR BRAY MD [address] [place] [address] 05-08-2024 06:42-0400 Heart rate 71 /min SHAHRIAR BRAY MD [address] [place] [address] 05-08-2024 06:42-0400 Reason For Taking VItal Signs SHAHRIAR BRAY MD [address] [place] [address] 05-08-2024 06:42-0400 Respiratory rate 17 /min SHAHRIAR BRAY MD [address] [place] [address] 05-08-2024 06:42-0400 Systolic Blood Pressure Non-Invasive 140 mm[Hg] SHAHRIAR BRAY MD [address] [place] [address] 05-08-2024 00:04-0400 Body temperature 97.88 [degF] SHAHRIAR BRAY MD [address] [place] [address] 05-08-2024 00:04-0400 Diastolic Blood Pressure Non-Invasive 59 mm[Hg] SHAHRIAR BRAY MD [address] [place] [address] 05-08-2024 00:04-0400 Heart rate 67 /min SHAHRIAR BRAY MD [address] [place] [address] 05-08-2024 00:04-0400 Respiratory rate 18 /min SHAHRIAR BRAY MD [facility] 05-08-2024 00:04-0400 Systolic Blood Pressure Non-Invasive 123 mm[Hg] SHAHRIAR BRAY MD [facility] 05-07-2024 15:09-0400 Blood Pressure Cuff Size SHAHRIAR BRAY MD [address] [place] [address] 05-07-2024 15:09-0400 Blood Pressure Location SHAHRIAR BRAY MD [address] [place] [address] 05-07-2024 15:09-0400 Blood Pressure Method SHAHRIAR BRAY MD [address] [place] [address] 05-07-2024 13:50-0400 Blood Pressure Cuff Size SHAHRIAR BRAY MD [address] [place] [address] 05-07-2024 13:50-0400 Blood Pressure Location SHAHRIAR BRAY MD [address] [place] [address] 05-07-2024 13:50-0400 Blood Pressure Method SHAHRIAR BRAY MD [address] [place] [address] 05-07-2024 13:50-0400 Heart rate 89 /min SHAHRIAR BRAY MD [facility] 05-07-2024 07:29-0400 Heart rate 89 /min SHAHRIAR BRAY MD [facility] 05-07-2024 03:19-0400 Heart rate 82 /min SHAHRIAR BRAY MD [facility] 05-06-2024 22:50-0400 Heart rate 89 /min SHAHRIAR BRAY MD [facility] 02-27-2024 17:14-0400 Diastolic Blood Pressure Non-Invasive 62 mm[Hg] TARA BORJA MD [facility] 02-27-2024 17:14-0400 Heart rate 89 /min TARA BORJA MD [facility] 02-27-2024 17:14-0400 Respiratory rate 20 /min TARA BORJA MD [facility] 02-27-2024 17:14-0400 Systolic Blood Pressure Non-Invasive 148 mm[Hg] TARA BORJA MD [facility] 02-27-2024 14:46-0400 Diastolic Blood Pressure Non-Invasive 74 mm[Hg] TARA BORJA MD [facility] 02-27-2024 14:46-0400 Heart rate 88 /min TARA BORJA MD [facility] 02-27-2024 14:46-0400 Respiratory rate 20 /min TARA BORJA MD [facility] 02-27-2024 14:46-0400 Systolic Blood Pressure Non-Invasive 155 mm[Hg] TARA BORJA MD [facility] 02-27-2024 14:13-0400 Body temperature 97.34 [degF] TARA BORJA MD [facility] 02-27-2024 14:13-0400 Diastolic Blood Pressure Non-Invasive 73 mm[Hg] TARA BORJA MD [facility] 02-27-2024 14:13-0400 Heart rate 90 /min TARA BORJA MD [facility] 02-27-2024 14:13-0400 Respiratory rate 20 /min TARA BORJA MD [facility] 02-27-2024 14:13-0400 Systolic Blood Pressure Non-Invasive 143 mm[Hg] TARA BORJA MD [facility] 02-14-2024 11:59-0400 Diastolic Blood Pressure Non-Invasive 68 mm[Hg] BIN HODGSON MD [facility] 02-14-2024 11:59-0400 Heart rate 54 /min BIN HODGSON MD [facility] 02-14-2024 11:59-0400 Respiratory rate 18 /min BIN HODGSON MD [facility] 02-14-2024 11:59-0400 Systolic Blood Pressure Non-Invasive 136 mm[Hg] BIN HODGSON MD [facility] 02-14-2024 11:01-0400 Body temperature 97.88 [degF] BIN HODGSON MD [facility] 02-14-2024 11:01-0400 Diastolic Blood Pressure Non-Invasive 68 mm[Hg] BIN HODGSON MD [facility] 02-14-2024 11:01-0400 Heart rate 61 /min BIN HODGSON MD [facility] 02-14-2024 11:01-0400 Respiratory rate 18 /min BIN HODGSON MD [facility] 02-14-2024 11:01-0400 Systolic Blood Pressure Non-Invasive 144 mm[Hg] BIN HODGSON MD [facility] Encounters Encounter Date Encounter Type Care Provider Facility Start: 12-29-2024 [facility] Facility: [facility] Start: 11-10-2024 End: 11-10-2024 ambulatory [facility] Facility:[facility] Start: 11-10-2024 End: 11-12-2024 [facility] Facility:[facility] Start: 04-21-[address] Urbano Foss Work Phone: [facility] Work Phone: Start: 11-10-2024 Dr. Niall Olmstead DO -Progressive Care Unit Work Phone: Start: 09-18-2024 End: 09-18-2024 Dr. Abundio Tyson MD -Emergency Departmen t Work Phone: Start: 09-18-2024 End: 09-18-2024 Emergency department patient visit [facility] Facility:[facility] Start: 09-03-2024 ambulatory [facility] OLS Facil ity:[facility] Start: 09-03-2024 Dr. James Leach MD -[facility] Start: 09-02-2024 Dr. Suman Choi DO -[facility] Work Phone: Start: 09-01-2024 Dr. Suman Choi DO -[facility] Work Phone: Start: 08-31-2024 Dr. Niall Loco MD - [facility] Work Phone: Start: 08-30-2024 ambulatory [facility] Facility: [facility] Start: 08-30-2024 End: 09-03-2024 Evaluation and management of inpatient [facility] Facility:[facility] Start: 08-30-2024 End: 09-03-2024 Dr. Suman Choi DO -Medical Surgical 3 Work Phone: Start: 08-30-2024 Dr. Niall Loco MD - [facility] Work Phone: Start: 08-29-2024 ambulatory [facility] Facility: [facility] Start: 08-29-2024 Dr. Betty Mike MD - [facility] Work Phone: Start: 08-28-2024 End: 08-28-2024 Dr. Violeta Rodríguez DO -Emergency Departme nt Work Phone: Start: 08-28-2024 End: 08-28-2024 Emergency department patient visit Violeta Rodríguez Facility:[facility] Start: 08-15-2024 Dr. [place] Jurado MD - [facility] Work Phone: Start: 08-14-2024 Dr. Alba Jurado MD - [facility] Work Phone: Start: 08-13-2024 Dr. Alba Jurado MD - [facility] Work Phone: Start: 08-12-2024 ambulatory Jennifer Jon Facility :[facility] Start: 08-12-2024 End: 08-15-2024 Evaluation and management of inpatient Jennifer Jon Facility:[facility] Start: 08-12-2024 End: 08-15-2024 Dr. Alba Jurado MD -Progressive Care Unit Work Phone: Start: 08-04-2024 End: 08-04-2024 ambulatory JAMES Lis LEACH DO Facility:[facility] Start: 08-04-2024 End: 08-04-2024 Patient encounter procedure JAMES E LEACH DO [facility] Start: 07-22-2024 End: 07-23-2024 Umair Cates DO -Emergency Departmen t Work Phone: Start: 07-22-2024 End: 07-23-2024 Emergency department patient visit [facility] Facility:[facility] Start: 07-20-2024 Dr. Jennifer Jon MD - [facility] Work Phone: Start: 07-19-2024 Dr. Jennifer Jon MD - [facility] Work Phone: Start: 07-18-2024 ambulatory James Leach OLS Facil ity:[facility] Start: 07-18-2024 Dr. Rayray Oliveira MD -[facility] Start: 07-18-2024 Dr. Jennifer Jon MD - [facility] Work Phone: Start: 07-17-2024 ambulatory James Leach OLS Facil ity:[facility] Start: 07-17-2024 End: 07-20-2024 Evaluation and management of inpatient James Leach Facility:[facility] Start: 07-17-2024 End: 07-20-2024 Dr. Jennifer Jon MD -Medical Surgical 3 Work Phone: Start: 06-05-2024 ambulatory JMAES LEACH DO Faci [facility]ity[facility] Start: 05-06-2024 End: 05-10-2024 ambulatory JAMES LEACH DO [facility] Start: 05-06-2024 End: 05-10-2024 Outreach Lab JAMES LEACH DO [facility] Start: 05-06-2024 End: 05-08-2024 Emergency department patient visit JAMES LEACH DO Facility:[facility] Start: 05-06-2024 End: 05-08-2024 Observation SHAHRIAR BRAY MD [facility] Start: 05-01-2024 End: 05-01-2024 ambulatory JAMES LEACH DO [facility] Start: 05-01-2024 End: 05-01-2024 Patient encounter procedure JAMES LEACH DO [facility] Start: 04-29-2024 End: 05-03-2024 ambulatory JAMES LEACH DO [facility] Start: 04-29-2024 End: 05-03-2024 Encounter for general adult medical examination without abnormal findings JAMES LEACH DO Facility:[facility] Start: 04-29-2024 End: 05-03-2024 Outreach Lab JAMES Hays LEACH DO [facility] Start: 04-24-2024 End: 04-24-2024 ambulatory JAMES LEACH DO [facility] Start: 04-24-2024 End: 04-24-2024 Patient encounter procedure CHARLI DE LEON [employer] [facility] Start: 03-31-2024 End: 04-29-2024 ambulatory JAMES E LEACH DO [facility] Start: 03-31-2024 End: 04-29-2024 Physical therapy management JAMES LEACH DO [facility] Start: 03-26-2024 ambulatory JAMES LEACH DO Faci lity:[facility] Start: 03-01-2024 ambulatory JAMES E LECAH DO Faci lity:[facility] Start: 02-27-2024 End: 02-27-2024 Emergency department patient visit TARA BORJA MD [facility] Start: 02-27-2024 ambulatory JAMES LEACH DO Faci lity:[facility] Start: 02-14-2024 End: 02-14-2024 Emergency department patient visit BIN HODGSON MD [facility] Start: 02-06-2024 End: 02-06-2024 ambulatory JAMES LEACH DO [facility] Start: 02-06-2024 End: 02-06-2024 Patient encounter procedure JAMES LEACH DO [facility] Start: 02-04-2024 End: 02-04-2024 ambulatory JAMES LEACH DO [facility] Start: 02-04-2024 End: 02-04-2024 Patient encounter procedure JAMES LEACH DO [facility] Start: 01-09-2024 End: 01-09-2024 ambulatory JAMES LEACH DO [facility] Start: 01-09-2024 End: 01-09-2024 Patient encounter procedure JAMES LEACH DO [facility] Start: 01-09-2024 End: 01-09-2024 Well adult monitoring check done JAMES LEACH DO [facility] Start: 07-31-2023 End: 07-31-2023 ambulatory JAMES HAINS DO [facility] Start: 07-31-2023 End: 07-31-2023 Patient encounter procedure JAMES LEACH DO [facility] Start: 07-25-2023 End: 07-25-2023 ambulatory JAMES HAINS DO [facility] Start: 07-25-2023 End: 07-25-2023 Patient encounter procedure JAMES LEACH DO [facility] Start: 01-17-2023 End: 01-17-[address] JED VIDAL DO [facility] Start: 05-31-2022 End: 05-31-2022 Patient encounter procedure VICENTE HERNANDEZ [employer] SUPERVIS[employer] [facility] Start: 03-02-2022 End: 03-02-2022 ambulatory [facility] Work Phone: Start: 03-02-2022 End: 03-02-2022 Discharged Recurring [facility]-Speech Therapy Start: 03-01-2022 End: 03-01-2022 Patient encounter procedure JAMES LEACH DO [facility] Start: 01-06-2022 End: 01-06-2022 Discharged Recurring [facility]-Speech Therapy Start: 10-24-2021 Registered Recurring [facility]-Speech Therapy Start: 10-10-2021 End: 10-10-2021 Patient encounter procedure [facility]-Radiology, [facility] Start: 09-22-2021 End: 09-22-2021 Patient encounter procedure MEGGAN CEBALLOS MD [facility] Start: 09-08-2021 End: 09-08-2021 Patient encounter procedure MEGGAN CEBALLOS MD [facility] Start: 07-27-2021 End: 07-27-2021 Patient encounter procedure MEGGAN CEBALLOS MD [facility] Start: 07-21-2021 End: 07-21-2021 Patient encounter procedure TRINIDAD HOUSTON [employer] SUPERVISOR[employer] [facility] Start: 06-20-2021 End: 06-20-2021 Patient encounter procedure MARCELA CRUZ MD [facility] Start: 05-25-2021 End: 05-25-2021 Patient encounter procedure MARCELA CRUZ MD [facility] Start: 01-18-2017 End: 01-19-2017 Ambulatory MARCELA CRUZ Facility[facility] Procedures Date Procedure Procedure Detail Performing Clinician Start: 11-10-2024 X-ray of chest, PA a nd lateral views Dr. Urbano Foss Work Phone: Start: 09-18-2024 Plain chest X-ray Dr. Asa Foss Work Phone: Start: 08-30-[address] Urbano Foss Work Phone: Start: 08-29-2024 Plain chest X-ray Dr. Asa Foss Work Phone: Start: 08-28-2024 Dr. Urbano hays DO Work Phone: Start: 08-28-2024 CT angiography of ch est with contrast Dr. Urbano Foss Work Phone: Start: 08-28-2024 Plain chest X-ray Dr. Asa Mir DO Work Phone: Start: 08-14-[address] acid assay [address] Urbano Mir DO Work Phone: Start: 08-13-[address] Urbano Mir DO Work Phone: Start: 08-12-2024 X-ray of chest, PA a nd lateral views Dr. Urbano Mir DO Work Phone: Start: 08-12-[address] Urbano Mir DO Work Phone: Start: 08-12-2024 Legionella pneumophi la antigen assay Dr. Urbano Mir DO Work Phone: Start: 08-12-2024 Streptococcus pneumo niae antigen assay Dr. Urbano Mir DO Work Phone: Start: 08-12-[address] Urbano Mir DO Work Phone: Start: 08-12-2024 Dr. Urbano hays DO Work Phone: Start: 07-23-2024 Plain chest X-ray Dr. Asa Mir DO Work Phone: Start: 07-20-2024 Gram stain microscopy D mendoza Mir DO Work Phone: Start: 07-20-[address] Urbano Mir DO Work Phone: Start: 07-19-2024 X-ray of chest, PA a nd lateral views Dr. Urbano Mir DO Work Phone: Start: 07-18-2024 Plain x-ray of pelvi s and lower extremity Dr. Urbano Mir DO Work Phone: Start: 07-17-2024 X-ray of chest, PA a nd lateral views Dr. Urbano Mir DO Work Phone: Start: 07-17-2024 Dr. Urbano hays DO Work Phone: Start: 03-21-2022 [employer] Start: 09-08-[address] JED OQUENDO DO Comment on above: No acute inflammator y disease Atherosclerosis with coronary artery calcifications Start: 07-21-[address] [place] VIDAL DO Comment on above: 1. Left ventricle: T he cavity size is normal. Wall thickness is mildly increased. Systolic function is normal. The estimated ejection fraction is 55-60%. Wall motion is normal; there are no regional wall motion abnormalities. Normal diastolic function. 2. Aortic valve: Thickening, consistent with sclerosis. There is trivial regurgitation. 3. Right ventricle: The RV systolic pressure by Doppler is 11 mm Hg. Start: 01-28-2018 Electrocardiographic monitoring MARCELA CRUZ MD Comment on above: Sinus shari Start: 02-02-2017 Measurement of respi ratory function DR JED VIDAL DO Comment on above: The study is consist ent with a mild restrictive abnormality. No evidence of obstructive abnormality Start: 09-22-2016 Prescription event monitoring MARCELA CRUZ MD Comment on above: During the 30 day mo nitoring period, the basic rhythm was sinus with an intermittent first degree AV bloh rates from 42-85 bpm. Rare PAC's including nonconductd were noted. No Pvc's were noted. Patient symtoms of SOB/dizziness/lighheaded/chest pain correlated with sinus bradycardia, sinus rhythm, sinus arrhythmia, and PAC's Start: 08-24-2016 Echocardiography MARCELA CRUZ MD Comment on above: Concentric hypertrop hy with normal wall motion. EF is 60-65%. left atrial enlargement. Mild aortic regurgitation. Stage I diastolic dysfunction based on reversed E/A ratio. Start: 07-14-[address] JED VIDAL DO Comment on above: Lexiscan nuclear str ess test showing what appears to be anteroseptal and anterolateral ischemia a moderate degree however this could be washout phenomenon from a poor exercise dose. Ejection fraction 72% with normal wall motion in all segments. Start: 05-23-2009 Cardiac catheterization MARCELA CRUZ MD Comment on above: Non-obstructive carolyn nary atherosclerosis. Preserved ledt ventricular systolic function. Diastolic dysfunction, moderately elevated left ventricular filling pressures. Start: 10-15-2007 Ophthalmic surgery ( qualifier value) MARCELA CRUZ MD Start: 07-25-[address] JED VIDAL DO Comment on above: abnormal stress test suggesting left anterior descending disease. However, catheterization shows only minimal left anterior descending disease, good LV function and mild mitral valve prolapse without regurgitation. It is felt to be a false positive scan. Start: 10-29-[address] JED VIDAL DO Comment on above: no significant coron tory disease or LV dysfunction Start: 07-23-1999 Arthroplasty MARCELA MARY MD Comment on above: again in 2001 Start: 07-23-1987 Foot structure (body structure) MARCELA CRUZ MD Comment on above: Dr. Ferrari Myringoplasty MARCELA CRUZ MD Plan of Treatment Date Care Activity Detail Author Start: 11-10-2024 Referral to occupati onal therapist [facility] Start: 11-10-2024 Referral to service [facility] Start: 11-10-2024 Thyroid stimulating hormone measurement [facility] Start: 11-10-2024 Admission procedure [facility] Start: 11-10-2024 Hospital admission, emergency, from emergency room, medical nature [facility] Start: 11-10-2024 [facility] Start: 09-18-2024 [facility] Start: 09-18-2024 Consultation [facility] Start: 09-18-2024 [facility] Start: 09-02-2024 Patient discharge [facility] Start: 08-30-2024 Admission procedure [facility] Start: 08-30-2024 Oxygen therapy [facility] Start: 08-29-2024 Assessment of risk o f venous thromboembolism [facility] Start: 08-29-2024 Elevation of head of bed [facility] Start: 08-29-2024 Inhalation therapy procedure [facility] Start: 08-29-2024 Insertion of cathete r into peripheral vein [facility] Start: 08-29-2024 Patient education [facility] Start: 08-29-2024 Providing care accor ding to standard [facility] Start: 08-29-2024 Referral to occupati onal therapist [facility] Start: 08-29-2024 Referral to service [facility] Start: 08-29-2024 [facility] Start: 08-29-2024 End: 08-29-2024 Following clinical pathway protocol [facility] Start: 08-29-2024 Admission procedure [facility] Start: 08-29-2024 Consultation [facility] Start: 08-28-2024 [facility] Start: 08-28-2024 Emergency dept visit high severity&threat funcj [facility] Start: 08-28-2024 [facility] Start: 08-15-2024 Patient discharge [facility] Start: 08-15-2024 Referral to service [facility] Start: 08-14-2024 Care planning and pr oblem solving actions [facility] Start: 08-13-2024 Inhalation therapy procedure [facility] Start: 08-12-2024 End: 08-13-2024 [facility] Start: 08-12-2024 End: 08-12-2024 Following clinical pathway protocol [facility] Start: 08-12-2024 Assessment of risk o f venous thromboembolism [facility] Start: 08-12-2024 Fall prevention [facility] Start: 08-12-2024 Insertion of cathete r into peripheral vein [facility] Start: 08-12-2024 Introduction of urinary catheter [facility] Start: 08-12-2024 Measuring intake and output [facility] Start: 08-12-2024 Oxygen therapy [facility] Start: 08-12-2024 Providing care accor ding to [facility] Start: 08-12-2024 Provision of activity privileges [facility] Start: 08-12-2024 Referral to occupati onal therapist [facility] Start: 08-12-2024 Referral to service [facility] Start: 08-12-2024 Admission procedure [facility] Start: 08-12-2024 Hospital admission, emergency, from emergency room, medical nature [facility] Start: 08-12-2024 Patient referral to dietitian [facility] Start: 07-23-2024 [facility] Start: 07-20-2024 Patient discharge [facility] Start: 07-19-2024 Referral to service [facility] Start: 07-18-2024 Care planning and pr oblem solving actions [facility] Start: 07-17-2024 Application of inter mittent pneumatic compression device [facility] Start: 07-17-2024 Assessment of risk o f venous thromboembolism [facility] Start: 07-17-2024 Contact precautions [facility] Start: 07-17-2024 Continuous pulse oximetry [facility] Start: 07-17-[address] [facility] Start: 07-17-2024 Insertion of cathete r into peripheral vein [facility] Start: 07-17-2024 Measuring intake and output [facility] Start: 07-17-2024 Oxygen therapy [facility] Start: 07-17-2024 Providing care accor ding to standard [facility] Start: 07-17-2024 Provision of activity privileges [facility] Start: 07-17-2024 Referral to occupati onal therapist [facility] Start: 07-17-2024 Referral to service [facility] Start: 07-17-2024 Respiratory secretion precautions [facility] Start: 07-17-2024 [facility] Start: 07-17-2024 Following clinical p athway protocol [facility] Start: 07-17-2024 Dual pressure sponta neous ventilation support [facility] Start: 07-17-2024 Admission procedure [facility] Start: 07-17-2024 Patient referral to dietitian [facility] Amphetamines [Presen ce] in Urine by Screen method >1000 ng/mL [facility] Benzodiazepine measurement, urine [facility] Cocaine measurement, urine [facility] Ethanol [Mass/volume ] in Serum or Plasma [facility] fentaNYL [Presence] in Urine by Screen method [facility] Folate [Moles/volume ] in Serum or Plasma [facility] Methadone measurement, urine [facility] Patient Education [facility] Work Phone: Patient referral [facility] Work Phone: Phencyclidine [Presence] in Urine [facility] Urine cannabinoid measurement [facility] Urine opiate measurement [facility] Immunizations Immunization Date Immunization Notes Care Provider Fa cility 08-14-2024 influenza, high dose seasonal, preservative-free Dr. Urbano Mir DO Work Phone: [facility] 06-10-2024 influenza, high dose seasonal, preservative-free; Translations: [Fluad PF Prefilled Syringe ] JAMES LEACH DO [facility] 05-28-2023 Covid (Spikevax) Dr. Urbano Mir DO Work Phone: [facility] 05-28-2023 SARS-CoV-2 (COVID-19 ) [id number] JAMES LEACH DO [facility] 05-21-2023 RSV Adult Recombinan t (Arexvy) Dr. Urbano Mir DO Work Phone: [facility] 05-21-2023 RSV vaccine preF3, recombinant JAMES LEACH DO [facility] 05-16-2023 influenza virus vacc ine, unspecified formulation JAMES LEACH DO [facility] 05-16-2023 influenza, injectabl e, quadrivalent, preservative free Dr. Urbano Mir DO Work Phone: [facility] 11-03-2022 Pneumococcal conjuga te PCV20, polysaccharide [id number] conjugate, adjuvant, PF; Translations: [Prevnar 20] DR JED VIDAL DO [facility] Comment on above: Result Comment: [facility] [place] [id number] 06-09-2022 influenza, high dose seasonal, preservative-free DR JED VIDAL DO [facility] 06-09-2022 Pneumococcal conjuga te PCV20, polysaccharide [id number] conjugate, adjuvant, PF; Translations: [Prevnar 20] DR JED VIDAL DO [facility] 06-09-2022 influenza, injectabl e, quadrivalent, preservative free Dr. Urbano Mir DO Work Phone: [facility] 03-01-2022 COVID-19, mRNA, LNP- S, PF, 100 mcg or 50 mcg dose; Translations: [Moderna COVID-19 Vaccine] JAMES LEACH DO [facility] 08-24-2021 influenza, high dose seasonal, preservative-free; Translations: [Fluad Quadrivalent PF ] MEGGAN CEBALLOS MD [facility] 08-24-2021 COVID-19, mRNA, LNP- S, PF, 100 mcg or 50 mcg dose; Translations: [Moderna COVID-19 Vaccine] MEGGAN CEBALLOS MD [facility] 08-24-2021 influenza, injectabl e, quadrivalent, preservative free Dr. Urbano Mir DO Work Phone: [facility] 01-04-2021 SARS-CoV-2 (COVID-19 ) mRNA-1273 vaccine MARCELA CRUZ MD [facility] 12-03-2020 SARS-CoV-2 (COVID-19 ) mRNA-1449 vaccine MARCELA CRUZ MD [facility] 04-15-2020 influenza, injectabl e, quadrivalent, preservative free; Translations: [Fluarix PF Quadrivalent ] MARCELA CRUZ MD [facility] 05-25-2019 tetanus toxoid, redu shane diphtheria toxoid, and acellular pertussis vaccine, adsorbed; Translations: [Boostrix (Tdap)] MARCELA CRUZ MD [facility] 04-02-2019 influenza, injectabl e, quadrivalent, preservative free; Translations: [Fluarix PF Quadrivalent ] MARCELA CRUZ MD [facility] 05-16-2018 influenza virus vacc ine, unspecified formulation MARCELA CRUZ MD [facility] 05-16-2018 influenza, injectabl e, quadrivalent, preservative free Dr. Urbano Mir DO Work Phone: [facility] 06-04-2017 influenza virus vacc ine, unspecified formulation MARCELA CRUZ MD [facility] 06-04-2017 influenza, injectabl e, quadrivalent, preservative free Dr. Urbano Mir DO Work Phone: [facility] 03-29-2016 influenza virus vacc ine, unspecified formulation MARCELA CRUZ MD [facility] 03-29-2016 influenza, seasonal, injectable, preservative free Dr. Urbano Mir DO Work Phone: [facility] 05-19-2015 influenza virus vacc ine, unspecified formulation MARCELA CRUZ MD [facility] 05-19-2015 influenza, seasonal, injectable, preservative free Dr. Urbano Mir DO Work Phone: [facility] 05-19-2015 pneumococcal conjuga te vaccine, 13 valent MARCELA CRUZ MD [facility] 04-02-2013 tetanus toxoid, redu shane diphtheria toxoid, and acellular pertussis vaccine, adsorbed MARCELA CRUZ MD [facility] 04-08-2012 influenza virus vacc ine, unspecified formulation MARCELA CRUZ MD [facility] 04-08-2012 influenza, seasonal, injectable, preservative free Dr. Urbano Mir DO Work Phone: [facility] Payers Date Payer Category Payer Self-pay [id number] 2023 Unknown [id number] 2023 Medicare [id number] 2011 Private Health Insurance [id number] 1941 Unknown [id number] 2.16.8 40.1.822004.3.579.2.627 1941 Unknown [id number] 2.16.8 40.1.869980.3.579.2.627 1941 Unknown [id number] 2.16.8 40.1.755957.3.579.2.627 1941 Unknown [id number] 2.16.8 40.1.190704.3.579.2.62 1941 Unknown [id number] 2.16.8 40.1.653317.3.579.2.627 1941 Unknown [id number] 2.16.8 40.1.159872.3.579.2.62 1941 Unknown [id number] 2.16.8 40.1.913826.3.579.2.62 1941 Unknown [id number] 2.16.8 40.1.843704.3.579.2. 1941 Unknown [id number] 2.16.8 40.1.212193.3.579.2. 1941 Unknown [id number] 2.16.8 40.1.674589.3.579.2. 1941 Unknown [id number] 2.16.8 40.1.432298.3.579.2. 1941 Unknown [id number] 2.16.8 40.1.925751.3.579.2. 1941 Unknown [id number] 2.16.8 40.1.662720.3.579.2. 1941 Unknown [id number] 2.16.8 40.1.525338.3.579.2. 1941 Unknown [id number] 2.16.8 40.1.231861.3.579.2.62 1941 Unknown [id number] 2.16.8 40.1.816318.3.579.2. 1941 Unknown [id number] 2.16.8 40.1.635005.3.579.2.627 1941 Unknown [id number] 2.16.8 40.1.432415.3.579.27 Unknown [id number] 2.16.8 40.1.157683.3.579.2.462 Unknown [id number] 2.16.8 40.1.290986.3.579.2.462 Unknown [id number] 2.16.8 40.1.717560.3.579.2.462 Unknown [id number] 2.16.8 40.1.146144.3.579.2.462 Unknown [id number] 2.16.8 40.1.950063.3.579.2.462 Unknown [id number] 2.16.8 40.1.589269.3.579.2.462 Unknown [id number] 2.16.8 40.1.928265.3.579.2.462 Unknown [id number] 2.16.8 40.1.725607.3.579.2.462 Unknown [id number] 2.16.8 40.1.204617.3.579.2.462 Unknown [id number] 2.16.8 40.1.714392.3.579.2.462 Unknown [id number] 2.16.8 40.1.327216.3.579.2.462 Unknown [id number] 2.16.8 40.1.642577.3.579.2.462 Unknown [id number] 2.16.8 40.1.239389.3.579.2.462 Unknown [id number] 2.16.8 40.1.107096.3.579.2.462 Unknown [id number] 2.16.8 40.1.738105.3.579.2.462 Unknown [id number] 2.16.8 40.1.393740.3.579.2.462 Unknown [id number] 2.16.8 40.1.968374.3.579.2.462 Unknown [id number] 2.16.8 40.1.962093.3.579.2.462 Unknown [id number] 2.16.8 40.1.479523.3.579.2.462 Unknown [id number] 2.16.8 40.1.534125.3.579.2.462 Unknown [id number] 2.16.8 40.1.523005.3.579.2.462 Unknown [id number] 2.16.8 40.1.513253.3.579.2.462 Unknown [id number] 2.16.8 40.1.030527.3.579.2.462 Unknown [id number] 2.16.8 40.1.290119.3.579.2.462 Unknown [id number] 2.16.8 40.1.779194.3.579.2.462 Unknown [id number] 2.16.8 40.1.029596.3.579.2.462 Unknown [id number] 2.16.8 40.1.815178.3.579.2.462 Unknown [id number] 2.16.8 40.1.836347.3.579.2.462 Social History Date Type Detail Facility Start: 04-02-2019 End: 11-10-2024 Never smoked tobacco (finding) [facility] Comment on above: no tobacco smoke exp osure Start: 1940 Sex Assigned At Female A [facility] Start: 09-26-2021 End: 10-24-2021 Tobacco smoking status WAIS Unknown if ever smoked [facility] Work Phone: Sexual Orientation [facility] Start: 01-15-2019 End: 11-10-2024 Sex Female (finding) [facility] Goals Date Patient Goal Desired Activity /State Functional Status Date Assessment Result Facility 09-02-2024 Functional status With Assist of 1 [facility] Work Phone: 09-02-2024 Functional status Ambulates;Bath room Privilege;Back to bed [facility] Work Phone: 08-15-2024 Functional status Stand and pivot [facility] Work Phone: 07-20-2024 Functional status Bathroom Privilege [facility] Work Phone: 05-08-2024 Functional Status Fall ID band o n, Bathroom light on, Non-Slip footwear, toileting offered, supervised while toileting, Room check performed, Upholstery Department Supervisor at bedside [facility] 05-08-2024 Functional Status [facility] 05-08-2024 Functional Status [facility] 05-08-2024 Functional Status Critical access hospital and wellness [facility] 05-08-2024 Functional Status 7am-11am [facility] 05-08-2024 Functional Status [facility] 05-08-2024 Functional Status [facility] 05-08-2024 Functional Status [facility] 05-07-2024 Functional Status Mod I [facility] 05-07-2024 Functional Status Hospital bed [facility] 02-27-2024 Functional Status Minimum assistance [facility] 02-27-2024 Functional Status Standard Safet y ID band on, Call device within reach, Bed in low position, Wheels locked [facility] 02-14-2024 Functional Status Independent [facility] 02-14-2024 Functional Status Standard Safet y ID band on, Allergy Band on, Call device within reach, Bed in low position, Wheels locked, Upper/Half-Length side-rails up, Bedside Cart Locked, Visitor at bedside, Safety level maintained [facility] Mental Status Date Assessment Result Facility 11-10-2024 Cognitive function Voice/Name [facility] Work Phone: 09-18-2024 Cognitive function Awake;Alert;Appropriat e [facility] Work Phone: 09-02-2024 Cognitive function Voice/Name [facility] Work Phone: 08-28-2024 Cognitive function Awake;Alert;A ppropriate;Follo ws Commands [facility] Work Phone: 08-15-2024 Cognitive function Voice/Name [facility] Work Phone: 07-20-2024 Cognitive function Voice/Name [facility] Work Phone: 05-08-2024 Mental Status Orientation Orie nted x 4, Forgetful [facility] 05-07-2024 Mental Status [facility] 02-27-2024 Mental Status Orientation Oriented x 4 [facility] 02-27-2024 Mental Status [facility] 02-14-2024 Mental Status Orientation Oriented x 4 [facility] 02-14-2024 Mental Status [facility] Clinical Notes 01-17-2023 to 11-12-2024 Note Date & Type Note Facility 11-12-2024 Note [facility] 11-10-2024 Radiology Diagnostic study note [facility] 09-02-2024 Note [facility] 08-15-2024 Note [facility] 07-20-2024 Note [facility] 07-18-2024 Evaluation note Diagnosis Onset Date Resolution Acute asthma exacerbation resolved July 17 10:28pm Chronic left hip pain inactive Dec 2023 10:28pm Influenza A deleted June 10:28pm Obesity (BMI 30.0-34.9) inactive D ecember 2023 10:28pm SHIRA (obstructive sleep apnea) inactive July 17 10:28pm Near syncope deleted June 10:28pm Respiratory insufficiency deleted July 17 10:28pm Generalized weakness inactive Jemal 2024 9:40pm Hypoxia inactive August 12, 2024 9:40pm Pneumonia inactive August 12, 2024 9:40pm Dementia acute August 30, 2024 12:14pm Chest pain inactive August 30, 2024 12:14pm [facility] Work Phone: 1(198) 972-397310-17-2024 Discharge summary Date of Service 05/08/2024 Discharge Diagnosis Dizziness ([id number] - PNED) Progressive dizziness/lightheadedness Progressive weakness Gait disturbances Deconditioning Dehydration Hypertension Dementia Hyperlipidemia Additional Orders: Other status: Consult Home Health - Aide,05/08/24 14:12:00 EDT, Aide Reason: Bathing assistance(Complete) Other status: Consult Home Health - OT,05/08/24 14:12:00 EDT, Home Therapy Order: OT Eval & Treat, Home Therapy Instruction: Full weight bearing, Reason: General Debility(Complete) Other status: Consult Home Health - PT,05/08/24 14:12:00 EDT, Home Therapy Order: PT Eval & Treat, Reason: General Debility, Home Therapy Instruction: Full weight bearing(Complete) Other status: Consult Home Health - RN,05/08/24 14:12:00 EDT, Reason: Disease management(Complete) Ordered: Discharge,05/08/24 14:12:00 EDT, Discharged to: Home Ordered: Discharge Activity,Resume your pre-hospitalization activity, 05/08/24 14:12:00 EDT Ordered: Discharge Diet,No changes were made to your diet during your hospital stay. Please resume your pre hospitalization diet on discharge., 05/08/24 14:12:00 EDT Other status: Orthostatic Vital Signs,05/08/24 8:33:00 EDT, now(Complete) Ordered: meclizine,Start: 05/08/24 12:32:00 EDT, Dose = 12.5 mg, = 1 tab(s), Oral, Once, PRN, Dizziness, 05/08/24 12:32:00 EDT Hospital Course Patient is a 83-year-old female with past medical history significant for dementia, arthritis, history of TIA, hypertension, SHIRA, chronic dizziness and progressive weakness. She presented from home alone to [facility] on 05/06/2024 as recommended by her PCP for worsening balance, coordination and reported dizziness for the last 2 weeks. Patient is known to outpatient neurology. Diagnosed with vestibular type dizziness and recommend outpatient vestibular therapy. Patient was recently given scopolamine patches which seem to be at exacerbating her symptoms. Familyreports that the patient is more weak and more ataxic. Upon arrival, patient is hemodynamically stable. CT of the head showed no acute intercranial abnormality, does reveal volume loss and atrophy likely moderate chronic white matter ischemia. Recent outpatient MRI of the brain obtained on 05/01/2024 showing no acute changes, stable small left tentorial meningioma and stable chronic small vessel ischemic changes. Patient found to have mild leukocytosis at 13.7, otherwise no significant derangement on CBC. Urinalysis not concerning for infection. Troponin within normal limits. Chest x-ray showed atelectasis. PT and OT evaluated patient and recommending home with home therapy. Orthostatic vital signs are negative. At this time patient is medically stable for discharge. Discussed with Asha over the phone who is agreeable to take the patient home. Patient may eventually benefit from a memory care unit. Patient to continue to follow-up with neurology. On exam today, patient is resting comfortably on the edge of the bed. Patient is a very poor historian. When asking if she is currently dizzy, she states no. Denies nausea, vomiting, chest pain, shortness of breath. She is asking if she can be discharged home. Allergies Ceclor hives Naprosyn hives Norflex hives Parafon Forte DSC hives Seafood Terramycin with Polymyxin B Sulfate hives Vibramycin hives codeine hives erythromycin hives penicillin hives sulfa drug hives testosterone hives Consults Consult to Case Management/Social Service (Consult to Social Service/Case Management) (Consult to Case Management) - Ordered -- 05/06/24 21:10:00 EDT, ECF Placement Imaging Results and Diagnostics CT Head or Brain w/o Contrast Result Date: May 06, 2024 Verified By: Guille_JYOTSNA jacobs CLINICAL STATEMENT: IMPRESSION: 1. No acute intracranial pathology. 2. Prominent CSF spaces usually indicate volume loss/atrophy as amanifestation of moderate chronic white matter ischemia. COMMENT: Changes resultant from ischemia (even significant ischemia) mayoften be inapparent on CT exam, particularly if imaged early. Additionally,early changes due to neoplastic or inflammatory processes can be subtle tothe extent that they are not prospectively noted. Therefore, if symptomspersist, or clinical suspicion for pathology remains, further evaluation maybe obtained with MRI. XR Chest 1 View Result Date: May 06, 2024 Verified By: SHAUNA NINO DO CLINICAL STATEMENT: IMPRESSION: Bibasilar streaky airspace disease likely represents atelectasis. No focalconsolidation. I have personally reviewed the images of this examination and agree with theresident's findings and interpretation. Physical Exam Vitals and Measurements T: 36.6 C (Oral) TMIN: 36.5 C (Oral) TMAX: 36.6 C (Oral) HR: 68 RR: 18 BP: 137/67 SpO2: 94% No qualifying data available. General: No acute distress. Alert, forgetful and hard of hearing Skin: No rash. Warm, Dry, Intact. Pale. Lungs: Bilaterally diminished breath sounds with no crepitation or wheeze. Unlabored Cardiovascular: Heart is regular rhythm, S1S2, No extra-audible heart tones Abdomen: Abdomen is soft, nontender. Bowel sounds positive all four quadrants. Extremities: No clubbing, cyanosis or edema. Peripheral pulses palpable. No calf tenderness. Adequate peripheral circulation. Neurological: The patient is awake, oriented to self, time and place. Forgetful to situation. Following simple commands, moving all extremities. Code Status Code Status - Ordered -- 05/06/24 21:10:00 EDT, Full Code, Constant Order Admission Date 05/06/2024 Discharge Date 05/08/2024 Patient Instructions Continue to follow along with your neurologist and PCP Would recommend stopping scopolamine patch Medications Changed albuterol-ipratropium (albuterol-ipratropium 2.5 mg-0.5 mg/3 mL inhalation solution)3 Milliliter byinhalation four (4) times a day as needed as needed for shortness of breath or wheezing. Unchanged ezetimibe (ezetimibe 10 mg oral tablet)1 tab(s) by mouth once a day. Refills: 3. fluticasone-vilanterol (Breo Ellipta 100 mcg-25 mcg/inh inhalation powder)1 puff(s) by inhalation once a day. furosemide (furosemide 20 mg oral tablet)1 tab(s) by mouth once a day. Refills: 0. hydrochlorothiazide-triamterene (hydrochlorothiazide-triamterene 25 mg-37.5 mg oral capsule)1 cap by mouth every day. Refills: 1. nitroGLYcerin (nitroglycerin 0.2 mg/hr transdermal film, extended release)1 patch(es) Topical once a day. LEAVE ON FOR 12 TO 14 HOURS THEN REMOVE FOR A NITRATE-FREE INTERVAL OF 10 TO 12 HOURS. Refills: 1. rosuvastatin (rosuvastatin 5 mg oral tablet)TAKE 1 TABLET EVERY DAY. Refills: 1. zinc acetate (zinc (as acetate) 50 mg oral capsule)1 cap by mouth three (3) times a day. Refills: 0. Discontinued scopolamine (scopolamine 1 mg/72 hr transdermal film, extended release)1 patch(es) Transdermal every 72 hours. Follow Up Follow Up with [facility] will provide in house HHC for RN, PT/OT and aide service. Anurse will call you. Call them with any questions at [phone] When:Within 1-2 days Follow Up with JAMES LEACH DO When:Within 1-2 days Where:0 [facility] [place] [address]- [phone] Follow Up Appointments No qualifying data available. Follow Up Labs/Studies Discharge Labs No Follow-up Labs Discharge Studies Discharge to Outpatient OT - Ordered -- Therapy Order: Outpatient OT Eval and Treat, weakness, dizziness, Reason: Weakness, 3x/week for 4 weeks, 05/08/24 14:31:00 EDT Discharge to Outpatient PT - Ordered -- Therapy Order: Outpatient PT Eval and Treat, debility, dizziness, Reason: Dizziness, 3x/week for4 weeks, 05/08/24 14:30:00 EDT Discharge Diet Discharge Diet - Ordered -- No changes were made to your diet during your hospital stay. Please resume your pre hospitalization diet on discharge., 05/08/24 14:12:00 EDT Discharge Activity Discharge Activity - Ordered -- Resume your pre-hospitalization activity, 05/08/24 14:12:00 EDT Condition on Discharge Stable Discharge Disposition Home Information Provided To Alondra and Asha over the phone Time Spent I have spent a total of 36 minutes reviewing the patient's diagnostic labs and testing, seeing and examining the patient, and documenting in the medical record. Please see assessment for further detail. Digitally Signed by TERESA CERAD on 05/08/2024 05:18 PM [id number] Discharge [facility] Patient Education 05/08/2024 15:10:10 Fall Prevention in the Home, Adult Fall Prevention in the Home, Adult Falls can cause injuries and can affect people from all age groups. There are many simple things that you can do to make your home safe and to help prevent falls. Ask for help when making these changes, if needed. What actions can I take to prevent falls? General instructions Use good lighting in all rooms. Replace any light bulbs that burn out. Turn on lights if it is dark. Use night-lights. Place frequently used items in psus-ha-[id number] places. Lower the shelves around your home if necessary. Set up furniture so that there are clear paths around it. Avoid moving your furniture around. Remove throw rugs and other tripping hazards from the floor. Avoid walking on wet floors. Fix any uneven floor surfaces. Add color or contrast paint or tape to grab bars and handrails in your home. Place contrasting color strips on the first and last steps of stairways. When you use a stepladder, make sure that it is completely opened and that the sides are firmly locked. Have someone hold the ladder while you are using it. Do not climb a closed stepladder. Be aware of any and all pets. What can I do in the bathroom? Keep the floor dry. Immediately clean up any water that spills onto the floor. Remove soap buildup in the tub or shower on a regular basis. Use non-skid mats or decals on the floor of the tub or shower. Attach bath mats securely with double-sided, non-slip rug tape. If you need to sit down while you are in the shower, use a plastic, non-slip stool. Install grab bars by the toilet and in the tub and shower. Do not use towel bars as grab bars. What can I do in the bedroom? Make sure that a bedside light is easy to reach. Do not use oversized bedding that drapes onto the floor. Have a firm chair that has side arms to use for getting dressed. What can I do in the kitchen? Clean up any spills right away. If you need to reach for something above you, use a sturdy step stool that has a grab bar. Keep electrical cables out of the way. Do not use floor turkmen or wax that makes floors slippery. If you must use wax, make sure that it is non-skid floor wax. What can I do in the stairways? Do not leave any items on the stairs. Make sure that you have a light switch at the top of the stairs and the bottom of the stairs. Have them installed if you do not have them. Make sure that there are handrails on both sides of the stairs. Fix handrails that are broken or loose. Make sure that handrails are as long as the stairways. Install non-slip stair treads on all stairs in your home. Avoid having throw rugs at the top or bottom of stairways, or secure the rugs with carpet tape to prevent them from moving. Choose a carpet design that does not hide the edge of steps on the stairway. Check any carpeting to make sure that it is firmly attached to the stairs. Fix any carpet that is loose or worn. What can I do on the outside of my home? Use bright outdoor lighting. Regularly repair the edges of walkways and driveways and fix any cracks. Remove high doorway thresholds. Trim any shrubbery on the main path into your home. Regularly check that handrails are securely fastened and in good repair. Both sides of any steps should have handrails. Install guardrails along the edges of any raised decks or porches. Clear walkways of debris and clutter, including tools and rocks. Have leaves, snow, and ice cleared regularly. Use sand or salt on walkways during winter months. In the garage, clean up any spills right away, including grease or oil spills. What other actions can I take? Wear closed-toe shoes that fit well and support your feet. Wear shoes that have rubber soles or lowheels. Use mobility aids as needed, such as canes, walkers, scooters, and crutches. Review your medicines with your health care provider. Some medicines can cause dizziness or changesin blood pressure, which increase your risk of falling. Talk with your health care provider about other ways that you can decrease your risk of falls. Thismay include working with a physical therapist or new product trainer to improve your strength, balance, and endurance. Where to find more information Centers for Disease Control and Prevention, [place]: https://www.cdc.gov [employer] [place] [employer] A[employer]: https://xz5dytu.sena.nih.gov Contact a health care provider if: You are afraid of falling at home. You feel weak, drowsy, or dizzy at home. You fall at home. Summary There are many simple things that you can do to make your home safe and to help prevent falls. Ways to make your home safe include removing tripping hazards and installing grab bars in the bathroom. Ask for help when making these changes in your home. This information is not intended to replace advice given to you by your health care provider. Make sure you discuss any questions you have with your health care provider. Document Released: 06/29/2003 Document Revised: 06/21/2018 Document Reviewed: 02/21/2018 [employer] Patient Education 2020 [employer]. 05/08/2024 15:09:48 Confusion Confusion Confusion is the inability to think with the usual speed or clarity. People who are confused often describe their thinking as cloudy or unclear. Confusion can also include feeling disoriented. This means you are unaware of where you are or who you are. You may also not know the date or time. When confused, you may have difficulty remembering, paying attention, or making decisions. Some people also act aggressively when they are confused. In some cases, confusion may come on quickly. In other cases, it may develop slowly over time. How quickly confusion comes on depends on the cause. Confusion may be caused by: Head injury (concussion). Seizures. Stroke. Fever. Brain tumor. Decrease in brain function due to a vascular or neurologic condition (dementia). Emotions, like rage or terror. Inability to know what is real and what is not (hallucinations). Infections, such as a urinary tract infection (UTI). Using too much alcohol, drugs, or medicines. Loss of fluid (dehydration) or an imbalance of salts in the body (electrolytes). Lack of sleep. Low blood sugar (diabetes). Low levels of oxygen. This comes from conditions such as chronic lung disorders. Side effects of medicines, or taking medicines that affect other medicines (drug interactions). Lack of certain nutrients, especially niacin, thiamine, vitamin C, or vitamin B. Sudden drop in body temperature (hypothermia). Change in routine, such as traveling or being hospitalized. Follow these instructions at home: Pay attention to your symptoms. Tell your health care provider about any changes or if you develop new symptoms. Follow these instructions to control or treat symptoms. Ask a family member or friend for help if needed. Medicines Take pcmi-gxg-wafamvt and prescription medicines only as told by your health care provider. Ask your health care provider about changing or stopping any medicines that may be causing your confusion. Avoid pain medicines or sleep medicines until you have fully recovered. Use a pillbox or an alarm to help you take the right medicines at the right time. Lifestyle Eat a balanced diet that includes fruits and vegetables. Get enough sleep. For most adults, this is 7 9 hours each night. Do not drink alcohol. Do not become isolated. Spend time with other people and make plans for your days. Do not drive until your health care provider says that it is safe to do so. Do not use any products that contain nicotine or tobacco, such as cigarettes and e-cigarettes. If you need help quitting, ask your health care provider. Stop other activities that may increase your chances of getting hurt. These may include some work duties, sports activities, swimming, or bike riding. Ask your health care provider what activities are safe for you. What caregivers can do Find out if the person is confused. Ask the person to state his or her name, age, and the date. If the person is unsure or answers incorrectly, he or she may be confused. Always introduce yourself, no matter how well the person knows you. Remind the person of his or her location. Do this often. Place a calendar and clock near the person who is confused. Talk about current events and plans for the day. Keep the environment calm, quiet, and peaceful. Help the person do the things that he or she is unable to do. These include: ?Taking medicines. ?Keeping follow-up visits with his or her health care provider. ?Helping with household duties, including meal preparation. ?Running errands. Get help if you need it. There are several support groups for caregivers. If the person you are helping needs more support, consider day care, extended care programs, or a prison facility. The person's health care provider may be able to help evaluate these options. General instructions Monitor yourself for any conditions you may have. These may include: ?Checking your blood glucose levels, if you have diabetes. ?Watching your weight, if you are overweight. ?Monitoring your blood pressure, if you have hypertension. ?Monitoring your body temperature, if you have a fever. Keep all follow-up visits as told by your health care provider. This is important. Contact a health care provider if: Your symptoms get worse. Get help right away if you: Feel that you are not able to care for yourself. Develop severe headaches, repeated vomiting, seizures, blackouts, or slurred speech. Have increasing confusion, weakness, numbness, restlessness, or personality changes. Develop a loss of balance, have marked dizziness, feel uncoordinated, or fall. Develop severe anxiety, or you have delusions or hallucinations. These symptoms may represent a serious problem that is an emergency. Do not wait to see if the symptoms will go away. Get medical help right away. Call your local emergency services (911 in the [place] Do not drive yourself to the hospital. Summary Confusion is the inability to think with the usual speed or clarity. People who are confused often describe their thinking as cloudy or unclear. Confusion can also include having difficulty remembering, paying attention, or making decisions. Confusion may come on quickly or develop slowly over time, depending on the cause. There are many different causes of confusion. Ask for help from family members or friends if you are unable to take care of yourself. This information is not intended to replace advice given to you by your health care provider. Make sure you discuss any questions you have with your health care provider. Document Released: 08/16/2005 Document Revised: 07/11/2018 Document Reviewed: 07/11/2018 [employer] Patient Education 2020 [employer] 05/08/2024 15:09:40 Dizziness Dizziness Dizziness is a common problem. It is a feeling of unsteadiness or light- headedness. You may feel like you are about to faint. Dizziness can lead to injury if you stumble or fall. Anyone can become dizzy, but dizziness is more common in older adults. This condition can be caused by a number of things, including medicines, dehydration, or illness. Follow these instructions at home: Eating and drinking Drink enough fluid to keep your urine clear or pale yellow. This helps to keep you from becoming dehydrated. Try to drink more clear fluids, such as water. Do not drink alcohol. Limit your caffeine intake if told to do so by your health care provider. Check ingredients and nutrition facts to see if a food or beverage contains caffeine. Limit your salt (sodium) intake if told to do so by your health care provider. Check ingredients and nutrition facts to see if a food or beverage contains sodium. Activity Avoid making quick movements. ?Rise slowly from chairs and steady yourself until you feel okay. ?In the morning, first sit up on the side of the bed. When you feel okay, stand slowly while you hold onto something until you know that your balance is fine. If you need to body technician/painter one place for a long time, move your legs often. Tighten and relax the muscles in your legs while you are standing. Do not drive or use heavy machinery if you feel dizzy. Avoid bending down if you feel dizzy. Place items in your home so that they are easy for you to reach without leaning over. Lifestyle Do not use any products that contain nicotine or tobacco, such as cigarettes and e-cigarettes. If you need help quitting, ask your health care provider. Try to reduce your stress level by using methods such as yoga or meditation. Talk with your health care provider if you need help to manage your stress. General instructions Watch your dizziness for any changes. Take kztw-ygj-uzwkihi and prescription medicines only as told by your health care provider. Talk with your health care provider if you think that your dizziness is caused by a medicine that you are taking. Tell a friend or a family member that you are feeling dizzy. If he or she notices any changes in your behavior, have this person call your health care provider. Keep all follow-up visits as told by your health care provider. This is important. Contact a health care provider if: Your dizziness does not go away. Your dizziness or light-headedness gets worse. You feel nauseous. You have reduced hearing. You have new symptoms. You are unsteady on your feet or you feel like the room is spinning. Get help right away if: You vomit or have diarrhea and are unable to eat or drink anything. You have problems talking, walking, swallowing, or using your arms, hands, or legs. You feel generally weak. You are not thinking clearly or you have trouble forming sentences. It may take a friend or family member to notice this. You have chest pain, abdominal pain, shortness of breath, or sweating. Your vision changes. You have any bleeding. You have a severe headache. You have neck pain or a stiff neck. You have a fever. These symptoms may represent a serious problem that is an emergency. Do not wait to see if the symptoms will go away. Get medical help right away. Call your local emergency services (911 in the [place] Do not drive yourself to the hospital. Summary Dizziness is a feeling of unsteadiness or light-headedness. This condition can be caused by a number of things, including medicines, dehydration, or illness. Anyone can become dizzy, but dizziness is more common in older adults. Drink enough fluid to keep your urine clear or pale yellow. Do not drink alcohol. Avoid making quick movements if you feel dizzy. Monitor your dizziness for any changes. This information is not intended to replace advice given to you by your health care provider. Make sure you discuss any questions you have with your health care provider. Document Released: 01/02/2002 Document Revised: 07/12/2018 Document Reviewed: 08/11/2017 [employer] Patient Education 2020 [employer]. Follow Up Care 05/06/2024 15:50:13 With:[facility] will provide in house HHC for RN, PT/OT and aide service. A nurse will call you. Call them with any questions at [phone] Address:Unknown When:1-2 days With:JAMES LEACH DO Address: [address] [place] [address]- [phone] When:1-2 days [facility] 10-17-2024 Note Discharge Instructions Thank you for allowing [facility] to assist you with your healthcare needs. The following is importantdischarge information regarding your hospital visit. Your Care Team JAMES LEACH DO What to do next Instructions From Your Doctor Continue to follow along with your neurologist and PCP Would recommend stopping scopolamine patch Follow Up Appointments Follow Up with [facility] will provide in house HHC for RN, PT/OT and aide service. Anurse will call you. Call them with any questions at [phone] When:Within 1-2 days Follow Up with JAMES LEACH DO When:Within 1-2 days Where:[address] [facility] [place] [address]- [phone] The Following Activity and Diet Have Been Ordered for You Discharge Activity - Ordered -- Resume your pre-hospitalization activity, 05/08/24 14:12:00 EDT Discharge Diet - Ordered -- No changes were made to your diet during your hospital stay. Please resume your pre hospitalization diet on discharge., 05/08/24 14:12:00 EDT The Following Equipment Has Been Ordered for You No qualifying data available. The Following Treatments Have Been Ordered for You Discharge Labs No qualifying data available. Discharge Radiology No qualifying data available. Other Therapies Occupational Therapy Outpatient Eval & Treat (Occupational Therapy Outpatient Evaluation and Treatment) - Future -- 05/08/24, Unspecified, Smita, weakness, dizziness, Weakness, 3x/week for 4 weeks, Future Order, Once, No Physical Therapy Outpatient Eval & Treat (Physical Therapy Eval and Treat Outpatient) - Future -- 05/08/24, Unspecified, Smita, 3x/week for 4 weeks, debility, dizziness, Dizziness, Future Order, Once, No Post Acute Orders No qualifying data available. Someone Will Contact You Regarding These Home Health Referrals No home referrals have been ordered for you. No one will call you. Allergies Ceclor hives Naprosyn hives Norflex hives Parafon Forte DSC hives Seafood Terramycin with Polymyxin B Sulfate hives Vibramycin hives codeine hives erythromycin hives penicillin hives sulfa drug hives testosterone hives Medications Please ask your primary doctor or pharmacist before taking any other medication not listed, including over the counter drugs, herbal medications, vitamins and or supplements as they may interact withyour home medications. What How Much When Why Instructions Last Dose Changed albuterol-ipratropium (albuterol-ipratropium 2.5 mg-0.5 mg/ 3 mL inhalation solution) 3 Milliliter by inhalation Four (4) times a day as needed for as needed for shortness of breath or wheezing Unchanged ezetimibe (ezetimibe 10 mg oral tablet) 1 tab(s) by mouth Once a day Unchanged fluticasone-vilanterol (Breo Ellipta 100 mcg-25 mcg/ inh inhalation powder) 1 puff(s) by inhalation Once a day Unchanged furosemide (furosemide 20 mg oral tablet) 1 tab(s) by mouth Once a day Unchanged hydrochlorothiazide-triamterene (hydrochlorothiazide-triamterene 25 mg-37.5 mg oral capsule) 1 cap by mouth Every day Dizziness Meniere disease Unchanged nitroGLYcerin (nitroglycerin 0.2 mg/ hr transdermal film, extended release) 1 patch(es) Topical Once a day LEAVE ON FOR 12 TO 14 HOURS THEN REMOVE FOR A NITRATE-FREE INTERVAL OF 10 TO 12 HOURS Unchanged rosuvastatin (rosuvastatin 5 mg oral tablet) See instructions TAKE 1 TABLET EVERY DAY Unchanged zinc acetate (zinc (as acetate) 50 mg oral capsule) 1 cap by mouth Three (3) times a day What How Much When Comments Stop Taking scopolamine (scopolamine 1 mg/ 72 hr transdermal film, extended release) 1 patch(es) Transdermal Every 72 hours Please take this list to your next doctor s visit. Bring all medications you take, including over the counter medications, herbals and other supplements with you to your doctor s visit. Patients and families are reminded to discard old lists and to update any records with all medication providers or retail pharmacies. Education Materials Fall Prevention in the Home, Adult Falls can cause injuries and can affect people from all age groups. There are many simple things that you can do to make your home safe and to help prevent falls. Ask for help when making these changes, if needed. What actions can I take to prevent falls? General instructions Use good lighting in all rooms. Replace any light bulbs that burn out. Turn on lights if it is dark. Use night-lights. Place frequently used items in weyx-cm-kzyqr places. Lower the shelves around your home if necessary. Set up furniture so that there are clear paths around it. Avoid moving your furniture around. Remove throw rugs and other tripping hazards from the floor. Avoid walking on wet floors. Fix any uneven floor surfaces. Add color or contrast paint or tape to grab bars and handrails in your home. Place contrasting color strips on the first and last steps of stairways. When you use a stepladder, make sure that it is completely opened and that the sides are firmly locked. Have someone hold the ladder while you are using it. Do not climb a closed stepladder. Be aware of any and all pets. What can I do in the bathroom? Keep the floor dry. Immediately clean up any water that spills onto the floor. Remove soap buildup in the tub or shower on a regular basis. Use non-skid mats or decals on the floor of the tub or shower. Attach bath mats securely with double-sided, non-slip rug tape. If you need to sit down while you are in the shower, use a plastic, non-slip stool. Install grab bars by the toilet and in the tub and shower. Do not use towel bars as grab bars. What can I do in the bedroom? Make sure that a bedside light is easy to reach. Do not use oversized bedding that drapes onto the floor. Have a firm chair that has side arms to use for getting dressed. What can I do in the kitchen? Clean up any spills right away. If you need to reach for something above you, use a sturdy step stool that has a grab bar. Keep electrical cables out of the way. Do not use floor turkmen or wax that makes floors slippery. If you must use wax, make sure that it is non-skid floor wax. What can I do in the stairways? Do not leave any items on the stairs. Make sure that you have a light switch at the top of the stairs and the bottom of the stairs. Have them installed if you do not have them. Make sure that there are handrails on both sides of the stairs. Fix handrails that are broken or loose. Make sure that handrails are as long as the stairways. Install non-slip stair treads on all stairs in your home. Avoid having throw rugs at the top or bottom of stairways, or secure the rugs with carpet tape to prevent them from moving. Choose a carpet design that does not hide the edge of steps on the stairway. Check any carpeting to make sure that it is firmly attached to the stairs. Fix any carpet that is loose or worn. What can I do on the outside of my home? Use bright outdoor lighting. Regularly repair the edges of walkways and driveways and fix any cracks. Remove high doorway thresholds. Trim any shrubbery on the main path into your home. Regularly check that handrails are securely fastened and in good repair. Both sides of any steps should have handrails. Install guardrails along the edges of any raised decks or porches. Clear walkways of debris and clutter, including tools and rocks. Have leaves, snow, and ice cleared regularly. Use sand or salt on walkways during winter months. In the garage, clean up any spills right away, including grease or oil spills. What other actions can I take? Wear closed-toe shoes that fit well and support your feet. Wear shoes that have rubber soles or lowheels. Use mobility aids as needed, such as canes, walkers, scooters, and crutches. Review your medicines with your health care provider. Some medicines can cause dizziness or changesin blood pressure, which increase your risk of falling. Talk with your health care provider about other ways that you can decrease your risk of falls. Thismay include working with a physical therapist or new product trainer to improve your strength, balance, and endurance. Where to find more information Centers for Disease Control and Prevention, [place]: https://www.cdc.gov [employer] [place] [employer]: https://yw3uqwy.sena.nih.gov Contact a health care provider if: You are afraid of falling at home. You feel weak, drowsy, or dizzy at home. You fall at home. Summary There are many simple things that you can do to make your home safe and to help prevent falls. Ways to make your home safe include removing tripping hazards and installing grab bars in the bathroom. Ask for help when making these changes in your home. This information is not intended to replace advice given to you by your health care provider. Make sure you discuss any questions you have with your health care provider. Document Released: 06/29/2003 Document Revised: 06/21/2018 Document Reviewed: 02/21/2018 [employer] Patient Education 2020 [employer] Confusion Confusion is the inability to think with the usual speed or clarity. People who are confused often describe their thinking as cloudy or unclear. Confusion can also include feeling disoriented. This means you are unaware of where you are or who you are. You may also not know the date or time. When confused, you may have difficulty remembering, paying attention, or making decisions. Some people also act aggressively when they are confused. In some cases, confusion may come on quickly. In other cases, it may develop slowly over time. How quickly confusion comes on depends on the cause. Confusion may be caused by: Head injury (concussion). Seizures. Stroke. Fever. Brain tumor. Decrease in brain function due to a vascular or neurologic condition (dementia). Emotions, like rage or terror. Inability to know what is real and what is not (hallucinations). Infections, such as a urinary tract infection (UTI). Using too much alcohol, drugs, or medicines. Loss of fluid (dehydration) or an imbalance of salts in the body (electrolytes). Lack of sleep. Low blood sugar (diabetes). Low levels of oxygen. This comes from conditions such as chronic lung disorders. Side effects of medicines, or taking medicines that affect other medicines (drug interactions). Lack of certain nutrients, especially niacin, thiamine, vitamin C, or vitamin B. Sudden drop in body temperature (hypothermia). Change in routine, such as traveling or being hospitalized. Follow these instructions at home: Pay attention to your symptoms. Tell your health care provider about any changes or if you develop new symptoms. Follow these instructions to control or treat symptoms. Ask a family member or friend for help if needed. Medicines Take fnnm-vmr-qtghgku and prescription medicines only as told by your health care provider. Ask your health care provider about changing or stopping any medicines that may be causing your confusion. Avoid pain medicines or sleep medicines until you have fully recovered. Use a pillbox or an alarm to help you take the right medicines at the right time. Lifestyle Eat a balanced diet that includes fruits and vegetables. Get enough sleep. For most adults, this is 7 9 hours each night. Do not drink alcohol. Do not become isolated. Spend time with other people and make plans for your days. Do not drive until your health care provider says that it is safe to do so. Do not use any products that contain nicotine or tobacco, such as cigarettes and e-cigarettes. If you need help quitting, ask your health care provider. Stop other activities that may increase your chances of getting hurt. These may include some work duties, sports activities, swimming, or bike riding. Ask your health care provider what activities are safe for you. What caregivers can do Find out if the person is confused. Ask the person to state his or her name, age, and the date. If the person is unsure or answers incorrectly, he or she may be confused. Always introduce yourself, no matter how well the person knows you. Remind the person of his or her location. Do this often. Place a calendar and clock near the person who is confused. Talk about current events and plans for the day. Keep the environment calm, quiet, and peaceful. Help the person do the things that he or she is unable to do. These include: ? Taking medicines. ? Keeping follow-up visits with his or her health care provider. ? Helping with household duties, including meal preparation. ? Running errands. Get help if you need it. There are several support groups for caregivers. If the person you are helping needs more support, consider day care, extended care programs, or a prison facility. The person's health care provider may be able to help evaluate these options. General instructions Monitor yourself for any conditions you may have. These may include: ? Checking your blood glucose levels, if you have diabetes. ? Watching your weight, if you are overweight. ? Monitoring your blood pressure, if you have hypertension. ? Monitoring your body temperature, if you have a fever. Keep all follow-up visits as told by your health care provider. This is important. Contact a health care provider if: Your symptoms get worse. Get help right away if you: Feel that you are not able to care for yourself. Develop severe headaches, repeated vomiting, seizures, blackouts, or slurred speech. Have increasing confusion, weakness, numbness, restlessness, or personality changes. Develop a loss of balance, have marked dizziness, feel uncoordinated, or fall. Develop severe anxiety, or you have delusions or hallucinations. These symptoms may represent a serious problem that is an emergency. Do not wait to see if the symptoms will go away. Get medical help right away. Call your local emergency services (911 in the [place] Do not drive yourself to the hospital. Summary Confusion is the inability to think with the usual speed or clarity. People who are confused often describe their thinking as cloudy or unclear. Confusion can also include having difficulty remembering, paying attention, or making decisions. Confusion may come on quickly or develop slowly over time, depending on the cause. There are many different causes of confusion. Ask for help from family members or friends if you are unable to take care of yourself. This information is not intended to replace advice given to you by your health care provider. Make sure you discuss any questions you have with your health care provider. Document Released: 08/16/2005 Document Revised: 07/11/2018 Document Reviewed: 07/11/2018 [employer] Patient Education 2020 [employer]. Dizziness Dizziness is a common problem. It is a feeling of unsteadiness or light- headedness. You may feel like you are about to faint. Dizziness can lead to injury if you stumble or fall. Anyone can become dizzy, but dizziness is more common in older adults. This condition can be caused by a number of things, including medicines, dehydration, or illness. Follow these instructions at home: Eating and drinking Drink enough fluid to keep your urine clear or pale yellow. This helps to keep you from becoming dehydrated. Try to drink more clear fluids, such as water. Do not drink alcohol. Limit your caffeine intake if told to do so by your health care provider. Check ingredients and nutrition facts to see if a food or beverage contains caffeine. Limit your salt (sodium) intake if told to do so by your health care provider. Check ingredients and nutrition facts to see if a food or beverage contains sodium. Activity Avoid making quick movements. ? Rise slowly from chairs and steady yourself until you feel okay. ? In the morning, first sit up on the side of the bed. When you feel okay, stand slowly while you hold onto something until you know that your balance is fine. If you need to body technician/painter one place for a long time, move your legs often. Tighten and relax the muscles in your legs while you are standing. Do not drive or use heavy machinery if you feel dizzy. Avoid bending down if you feel dizzy. Place items in your home so that they are easy for you to reach without leaning over. Lifestyle Do not use any products that contain nicotine or tobacco, such as cigarettes and e-cigarettes. If you need help quitting, ask your health care provider. Try to reduce your stress level by using methods such as yoga or meditation. Talk with your health care provider if you need help to manage your stress. General instructions Watch your dizziness for any changes. Take hrrc-puq-pwcvluc and prescription medicines only as told by your health care provider. Talk with your health care provider if you think that your dizziness is caused by a medicine that you are taking. Tell a friend or a family member that you are feeling dizzy. If he or she notices any changes in your behavior, have this person call your health care provider. Keep all follow-up visits as told by your health care provider. This is important. Contact a health care provider if: Your dizziness does not go away. Your dizziness or light-headedness gets worse. You feel nauseous. You have reduced hearing. You have new symptoms. You are unsteady on your feet or you feel like the room is spinning. Get help right away if: You vomit or have diarrhea and are unable to eat or drink anything. You have problems talking, walking, swallowing, or using your arms, hands, or legs. You feel generally weak. You are not thinking clearly or you have trouble forming sentences. It may take a friend or family member to notice this. You have chest pain, abdominal pain, shortness of breath, or sweating. Your vision changes. You have any bleeding. You have a severe headache. You have neck pain or a stiff neck. You have a fever. These symptoms may represent a serious problem that is an emergency. Do not wait to see if the symptoms will go away. Get medical help right away. Call your local emergency services (911 in the [place] Do not drive yourself to the hospital. Summary Dizziness is a feeling of unsteadiness or light-headedness. This condition can be caused by a number of things, including medicines, dehydration, or illness. Anyone can become dizzy, but dizziness is more common in older adults. Drink enough fluid to keep your urine clear or pale yellow. Do not drink alcohol. Avoid making quick movements if you feel dizzy. Monitor your dizziness for any changes. This information is not intended to replace advice given to you by your health care provider. Make sure you discuss any questions you have with your health care provider. Document Released: 01/02/2002 Document Revised: 07/12/2018 Document Reviewed: 08/11/2017 [employer] Patient Education 2020 [employer] Additional Information VACCINATE! IT SAVES LIVES! Members of the community who have not yet received the COVID-19 vaccine and would like to receive it can visit one of [facility] vaccine clinics. There are many vaccine clinic locations within the [facility]. For locations and available times, please visit https://gettheshot.coronavirus.[place].gov/. It is important to note that some COVID mobile vaccine clinics are held outdoors and may be canceled in rainy or stormy conditions. To learn more about pediatric vaccinations (ages 5-11), we invite you to visit the [facility] webpage. [email or web address]://www.[email or web address]/[email or web address] [email or web address] learn more about the COVID-19 vaccine, we invite you to visit the CDC website for a list of frequently asked questions.https://www.cdc.gov/coronavirus/2019-ncov/vaccines/faq.html [facility] Patient [facility] Access Instructions: Stay connected with your healthcare team and access your personal medical information anytime with the [facility] Patient Portal. Please follow the directions below to create your [facility] account: 1.Access the email account you provided upon registration to the hospital/physician office.2.Look for an invitation email from [facility].3.Open the email and access the invitation link: AcceptInvitation to [facility].4.Fill in the required sommer to create your account. To access your account, visit [employer]/[facility]. Click the blue button labeled Access Patient Portal and then log in with the username and password that you created in the steps above. You will be able to view your test results, lab results, a summary of your visits, upcoming appointments and more. There is also a convenient messaging option where you can send secure messages to your p rovider. In addition, you will have the ability to download any documents or summaries to your computer and/or send the information securely to a physician. Remember that your healthcare information is confidential, so carefully consider who you will allowto register on the [facility] Patient Portal for access to your information. You can also access the [facility] Patient Portal on the [facility] partha. Simply click on Patient Portal and then log into your account. If you would like to receive a full copy of your medical records, please contact the [facility] Medical Records Department by calling [phone], Sunday through Sunday between 8 a.m. and 4:30 p.m. HOW TO SAFELY DISPOSE OF PRESCRIPTION MEDICATIONS Please use one of the following methods to safely dispose of your unused medications. 1.Use a drug disposal kit: the drug disposal pouch allows you to safely discard your old and unuseddrugs. Ask your nurse to give you one when you are discharged.2.Visit a local take-back location: Many local pharmacies and police departments have programs that collect old and unwanted prescriptiondrugs. Call your local pharmacy or go to http://Vestec.RelTel/5P4Ym7m to find one close to you.3.Make use of household items: Use cat litter or old coffee grounds to dispose medications if other options arenot available. Mix your drugs with these household products, seal them in an airtight container andthrow it into the garbage. Call [facility]: [phone] to be sure your drugs can be disposed of in this way. Some medicines may require a different approach.4.Never flush your medications down the toilet. IF YOU HAVE BEEN PRESCRIBED AN OPIOID FOR PAIN If you have been prescribed an opioid (such as hydrocodone, oxycodone or morphine), it is critical to understand the possible side effects and risks of opioid pain medications. Even when taken as directed, opioids can have several side effects including: Tolerance, meaning you might need to take more of a medication for the same pain relief. Nausea, vomiting and/or constipation. Sleepiness, dizziness, dry mouth, confusion, depression or itching. Physical dependence, meaning you have withdrawal symptoms when a medication is stopped, can develop within a few days. KNOW YOUR RESPONSIBILITIES It is important to know exactly how much and how often to take the opioid pain medications you are prescribed. Never take opioids in higher amounts or more often than prescribed. Do not combine opioids with alcohol or other drugs that cause drowsiness, such as benzodiazepines, also known as benzos, including diazepam and alprazolam, muscle relaxants or sleep aids. Never sell or share prescription opioids. This is illegal. Store opioids in a secure place and out of reach of others (including children, family, friends and visitors). The last page of this document has been signed and retained as a CHART COPY. Signatures Patient Education Materials Fall Prevention in the Home, Adult Confusion Dizziness Medication Leaflets My discharge plan and instructions have been reviewed and explained to me and I,YURI QUINTERO understand my current condition and have read and understand these discharge instructions. I have received a written copy of the plan/instructions. If I have questions, I am aware that I should contact my doctor. Patient/Infection Control Manager Signature: Date/Time: Relationship to Patient: Witness Name/Signature: [id number] Note Discharge Instructions Thank you for allowing [facility] to assist you with your healthcare needs. The following is importantdischarge information regarding your hospital visit. Your Care Team JAMES LEACH DO What to do next Instructions From Your Doctor Continue to follow along with your neurologist and PCP Would recommend stopping scopolamine patch Follow Up Appointments Follow Up with [facility] will provide in house HHC for RN, PT/OT and aide service. Anurse will call you. Call them with any questions at [phone] When:Within 1-2 days Follow Up with JAMES LEACH DO When:Within 1-2 days Where:[address] [place] [address]- [phone] The Following Activity and Diet Have Been Ordered for You Discharge Activity - Ordered -- Resume your pre-hospitalization activity, 05/08/24 14:12:00 EDT Discharge Diet - Ordered -- No changes were made to your diet during your hospital stay. Please resume your pre hospitalization diet on discharge., 05/08/24 14:12:00 EDT The Following Equipment Has Been Ordered for You No qualifying data available. The Following Treatments Have Been Ordered for You Discharge Labs No qualifying data available. Discharge Radiology No qualifying data available. Other Therapies Occupational Therapy Outpatient Eval & Treat (Occupational Therapy Outpatient Evaluation and Treatment) - Future -- 05/08/24, Unspecified, [facility], weakness, dizziness, Weakness, 3x/week for 4 weeks, Future Order, Once, No Physical Therapy Outpatient Eval & Treat (Physical Therapy Eval and Treat Outpatient) - Future -- 05/08/24, Unspecified, [facility], 3x/week for 4 weeks, debility, dizziness, Dizziness, Future Order, Once, No Post Acute Orders No qualifying data available. Someone Will Contact You Regarding These Home Health Referrals No home referrals have been ordered for you. No one will call you. Allergies Ceclor hives Naprosyn hives Norflex hives Parafon Forte DSC hives Seafood Terramycin with Polymyxin B Sulfate hives Vibramycin hives codeine hives erythromycin hives penicillin hives sulfa drug hives testosterone hives Medications Please ask your primary doctor or pharmacist before taking any other medication not listed, including over the counter drugs, herbal medications, vitamins and or supplements as they may interact withyour home medications. What How Much When Why Instructions Last Dose Changed albuterol-ipratropium (albuterol-ipratropium 2.5 mg-0.5 mg/ 3 mL inhalation solution) 3 Milliliter by inhalation Four (4) times a day as needed for as needed for shortness of breath or wheezing Unchanged ezetimibe (ezetimibe 10 mg oral tablet) 1 tab(s) by mouth Once a day Unchanged fluticasone-vilanterol (Breo Ellipta 100 mcg-25 mcg/ inh inhalation powder) 1 puff(s) by inhalation Once a day Unchanged furosemide (furosemide 20 mg oral tablet) 1 tab(s) by mouth Once a day Unchanged hydrochlorothiazide-triamterene (hydrochlorothiazide-triamterene 25 mg-37.5 mg oral capsule) 1 cap by mouth Every day Dizziness Meniere disease Unchanged nitroGLYcerin (nitroglycerin 0.2 mg/ hr transdermal film, extended release) 1 patch(es) Topical Once a day LEAVE ON FOR 12 TO 14 HOURS THEN REMOVE FOR A NITRATE-FREE INTERVAL OF 10 TO 12 HOURS Unchanged rosuvastatin (rosuvastatin 5 mg oral tablet) See instructions TAKE 1 TABLET EVERY DAY Unchanged zinc acetate (zinc (as acetate) 50 mg oral capsule) 1 cap by mouth Three (3) times a day What How Much When Comments Stop Taking scopolamine (scopolamine 1 mg/ 72 hr transdermal film, extended release) 1 patch(es) Transdermal Every 72 hours Please take this list to your next doctor s visit. Bring all medications you take, including over the counter medications, herbals and other supplements with you to your doctor s visit. Patients and families are reminded to discard old lists and to update any records with all medication providers or retail pharmacies. Education Materials Fall Prevention in the Home, Adult Falls can cause injuries and can affect people from all age groups. There are many simple things that you can do to make your home safe and to help prevent falls. Ask for help when making these changes, if needed. What actions can I take to prevent falls? General instructions Use good lighting in all rooms. Replace any light bulbs that burn out. Turn on lights if it is dark. Use night-lights. Place frequently used items in qkon-tv-nhnqg places. Lower the shelves around your home if necessary. Set up furniture so that there are clear paths around it. Avoid moving your furniture around. Remove throw rugs and other tripping hazards from the floor. Avoid walking on wet floors. Fix any uneven floor surfaces. Add color or contrast paint or tape to grab bars and handrails in your home. Place contrasting color strips on the first and last steps of stairways. When you use a stepladder, make sure that it is completely opened and that the sides are firmly locked. Have someone hold the ladder while you are using it. Do not climb a closed stepladder. Be aware of any and all pets. What can I do in the bathroom? Keep the floor dry. Immediately clean up any water that spills onto the floor. Remove soap buildup in the tub or shower on a regular basis. Use non-skid mats or decals on the floor of the tub or shower. Attach bath mats securely with double-sided, non-slip rug tape. If you need to sit down while you are in the shower, use a plastic, non-slip stool. Install grab bars by the toilet and in the tub and shower. Do not use towel bars as grab bars. What can I do in the bedroom? Make sure that a bedside light is easy to reach. Do not use oversized bedding that drapes onto the floor. Have a firm chair that has side arms to use for getting dressed. What can I do in the kitchen? Clean up any spills right away. If you need to reach for something above you, use a sturdy step stool that has a grab bar. Keep electrical cables out of the way. Do not use floor turkmen or wax that makes floors slippery. If you must use wax, make sure that it is non-skid floor wax. What can I do in the stairways? Do not leave any items on the stairs. Make sure that you have a light switch at the top of the stairs and the bottom of the stairs. Have them installed if you do not have them. Make sure that there are handrails on both sides of the stairs. Fix handrails that are broken or loose. Make sure that handrails are as long as the stairways. Install non-slip stair treads on all stairs in your home. Avoid having throw rugs at the top or bottom of stairways, or secure the rugs with carpet tape to prevent them from moving. Choose a carpet design that does not hide the edge of steps on the stairway. Check any carpeting to make sure that it is firmly attached to the stairs. Fix any carpet that is loose or worn. What can I do on the outside of my home? Use bright outdoor lighting. Regularly repair the edges of walkways and driveways and fix any cracks. Remove high doorway thresholds. Trim any shrubbery on the main path into your home. Regularly check that handrails are securely fastened and in good repair. Both sides of any steps should have handrails. Install guardrails along the edges of any raised decks or porches. Clear walkways of debris and clutter, including tools and rocks. Have leaves, snow, and ice cleared regularly. Use sand or salt on walkways during winter months. In the garage, clean up any spills right away, including grease or oil spills. What other actions can I take? Wear closed-toe shoes that fit well and support your feet. Wear shoes that have rubber soles or lowheels. Use mobility aids as needed, such as canes, walkers, scooters, and crutches. Review your medicines with your health care provider. Some medicines can cause dizziness or changesin blood pressure, which increase your risk of falling. Talk with your health care provider about other ways that you can decrease your risk of falls. Thismay include working with a physical therapist or new product trainer to improve your strength, balance, and endurance. Where to find more information Centers for Disease Control and PreventionDEVONTE: https://www.cdc.gov [employer] A[employer]: https://et8pzbm.sena.nih.gov Contact a health care provider if: You are afraid of falling at home. You feel weak, drowsy, or dizzy at home. You fall at home. Summary There are many simple things that you can do to make your home safe and to help prevent falls. Ways to make your home safe include removing tripping hazards and installing grab bars in the bathroom. Ask for help when making these changes in your home. This information is not intended to replace advice given to you by your health care provider. Make sure you discuss any questions you have with your health care provider. Document Released: 06/29/2003 Document Revised: 06/21/2018 Document Reviewed: 02/21/2018 [employer] Patient Education 2020 [employer] Confusion Confusion is the inability to think with the usual speed or clarity. People who are confused often describe their thinking as cloudy or unclear. Confusion can also include feeling disoriented. This means you are unaware of where you are or who you are. You may also not know the date or time. When confused, you may have difficulty remembering, paying attention, or making decisions. Some people also act aggressively when they are confused. In some cases, confusion may come on quickly. In other cases, it may develop slowly over time. How quickly confusion comes on depends on the cause. Confusion may be caused by: Head injury (concussion). Seizures. Stroke. Fever. Brain tumor. Decrease in brain function due to a vascular or neurologic condition (dementia). Emotions, like rage or terror. Inability to know what is real and what is not (hallucinations). Infections, such as a urinary tract infection (UTI). Using too much alcohol, drugs, or medicines. Loss of fluid (dehydration) or an imbalance of salts in the body (electrolytes). Lack of sleep. Low blood sugar (diabetes). Low levels of oxygen. This comes from conditions such as chronic lung disorders. Side effects of medicines, or taking medicines that affect other medicines (drug interactions). Lack of certain nutrients, especially niacin, thiamine, vitamin C, or vitamin B. Sudden drop in body temperature (hypothermia). Change in routine, such as traveling or being hospitalized. Follow these instructions at home: Pay attention to your symptoms. Tell your health care provider about any changes or if you develop new symptoms. Follow these instructions to control or treat symptoms. Ask a family member or friend for help if needed. Medicines Take ikvu-ipq-lqtfref and prescription medicines only as told by your health care provider. Ask your health care provider about changing or stopping any medicines that may be causing your confusion. Avoid pain medicines or sleep medicines until you have fully recovered. Use a pillbox or an alarm to help you take the right medicines at the right time. Lifestyle Eat a balanced diet that includes fruits and vegetables. Get enough sleep. For most adults, this is 7 9 hours each night. Do not drink alcohol. Do not become isolated. Spend time with other people and make plans for your days. Do not drive until your health care provider says that it is safe to do so. Do not use any products that contain nicotine or tobacco, such as cigarettes and e-cigarettes. If you need help quitting, ask your health care provider. Stop other activities that may increase your chances of getting hurt. These may include some work duties, sports activities, swimming, or bike riding. Ask your health care provider what activities are safe for you. What caregivers can do Find out if the person is confused. Ask the person to state his or her name, age, and the date. If the person is unsure or answers incorrectly, he or she may be confused. Always introduce yourself, no matter how well the person knows you. Remind the person of his or her location. Do this often. Place a calendar and clock near the person who is confused. Talk about current events and plans for the day. Keep the environment calm, quiet, and peaceful. Help the person do the things that he or she is unable to do. These include: ? Taking medicines. ? Keeping follow-up visits with his or her health care provider. ? Helping with household duties, including meal preparation. ? Running errands. Get help if you need it. There are several support groups for caregivers. If the person you are helping needs more support, consider day care, extended care programs, or a prison facility. The person's health care provider may be able to help evaluate these options. General instructions Monitor yourself for any conditions you may have. These may include: ? Checking your blood glucose levels, if you have diabetes. ? Watching your weight, if you are overweight. ? Monitoring your blood pressure, if you have hypertension. ? Monitoring your body temperature, if you have a fever. Keep all follow-up visits as told by your health care provider. This is important. Contact a health care provider if: Your symptoms get worse. Get help right away if you: Feel that you are not able to care for yourself. Develop severe headaches, repeated vomiting, seizures, blackouts, or slurred speech. Have increasing confusion, weakness, numbness, restlessness, or personality changes. Develop a loss of balance, have marked dizziness, feel uncoordinated, or fall. Develop severe anxiety, or you have delusions or hallucinations. These symptoms may represent a serious problem that is an emergency. Do not wait to see if the symptoms will go away. Get medical help right away. Call your local emergency services (911 in the [place] Do not drive yourself to the hospital. Summary Confusion is the inability to think with the usual speed or clarity. People who are confused often describe their thinking as cloudy or unclear. Confusion can also include having difficulty remembering, paying attention, or making decisions. Confusion may come on quickly or develop slowly over time, depending on the cause. There are many different causes of confusion. Ask for help from family members or friends if you are unable to take care of yourself. This information is not intended to replace advice given to you by your health care provider. Make sure you discuss any questions you have with your health care provider. Document Released: 08/16/2005 Document Revised: 07/11/2018 Document Reviewed: 07/11/2018 [employer] Patient Education 2020 [employer] Dizziness Dizziness is a common problem. It is a feeling of unsteadiness or light- headedness. You may feel like you are about to faint. Dizziness can lead to injury if you stumble or fall. Anyone can become dizzy, but dizziness is more common in older adults. This condition can be caused by a number of things, including medicines, dehydration, or illness. Follow these instructions at home: Eating and drinking Drink enough fluid to keep your urine clear or pale yellow. This helps to keep you from becoming dehydrated. Try to drink more clear fluids, such as water. Do not drink alcohol. Limit your caffeine intake if told to do so by your health care provider. Check ingredients and nutrition facts to see if a food or beverage contains caffeine. Limit your salt (sodium) intake if told to do so by your health care provider. Check ingredients and nutrition facts to see if a food or beverage contains sodium. Activity Avoid making quick movements. ? Rise slowly from chairs and steady yourself until you feel okay. ? In the morning, first sit up on the side of the bed. When you feel okay, stand slowly while you hold onto something until you know that your balance is fine. If you need to body technician/painter one place for a long time, move your legs often. Tighten and relax the muscles in your legs while you are standing. Do not drive or use heavy machinery if you feel dizzy. Avoid bending down if you feel dizzy. Place items in your home so that they are easy for you to reach without leaning over. Lifestyle Do not use any products that contain nicotine or tobacco, such as cigarettes and e-cigarettes. If you need help quitting, ask your health care provider. Try to reduce your stress level by using methods such as yoga or meditation. Talk with your health care provider if you need help to manage your stress. General instructions Watch your dizziness for any changes. Take wrez-yqf-gdujtnb and prescription medicines only as told by your health care provider. Talk with your health care provider if you think that your dizziness is caused by a medicine that you are taking. Tell a friend or a family member that you are feeling dizzy. If he or she notices any changes in your behavior, have this person call your health care provider. Keep all follow-up visits as told by your health care provider. This is important. Contact a health care provider if: Your dizziness does not go away. Your dizziness or light-headedness gets worse. You feel nauseous. You have reduced hearing. You have new symptoms. You are unsteady on your feet or you feel like the room is spinning. Get help right away if: You vomit or have diarrhea and are unable to eat or drink anything. You have problems talking, walking, swallowing, or using your arms, hands, or legs. You feel generally weak. You are not thinking clearly or you have trouble forming sentences. It may take a friend or family member to notice this. You have chest pain, abdominal pain, shortness of breath, or sweating. Your vision changes. You have any bleeding. You have a severe headache. You have neck pain or a stiff neck. You have a fever. These symptoms may represent a serious problem that is an emergency. Do not wait to see if the symptoms will go away. Get medical help right away. Call your local emergency services (911 in the [place] Do not drive yourself to the hospital. Summary Dizziness is a feeling of unsteadiness or light-headedness. This condition can be caused by a number of things, including medicines, dehydration, or illness. Anyone can become dizzy, but dizziness is more common in older adults. Drink enough fluid to keep your urine clear or pale yellow. Do not drink alcohol. Avoid making quick movements if you feel dizzy. Monitor your dizziness for any changes. This information is not intended to replace advice given to you by your health care provider. Make sure you discuss any questions you have with your health care provider. Document Released: 01/02/2002 Document Revised: 07/12/2018 Document Reviewed: 08/11/2017 [employer] Patient Education 2020 [employer]. Additional Information VACCINATE! IT SAVES LIVES! Members of the community who have not yet received the COVID-19 vaccine and would like to receive it can visit one of [facility] vaccine clinics. There are many vaccine clinic locations within the [facility]. For locations and available times, please visit [email or web address].[place].gov/. It is important to note that some COVID mobile vaccine clinics are held outdoors and may be canceled in rainy or stormy conditions. To learn more about pediatric vaccinations (ages 5-11), we invite you to visit the [facility] webpage. [email or web address].[email or web address].org/pages/[email or web address]-[email or web address]-[email or web address] stions.htmlTo learn more about the COVID-19 vaccine, we invite you to visit the CDC website for a list of frequently asked questions.https://www.cdc.gov/coronavirus/2019-ncov/vaccines/faq.html [facility] Patient Portal Access Instructions: Stay connected with your healthcare team and access your personal medical information anytime with the [facility] Patient Portal. Please follow the directions below to create your [facility] account: 1.Access the email account you provided upon registration to the hospital/physician office.2.Look for an invitation email from [facility].3.Open the email and access the invitation link: AcceptInvitation to [facility].4.Fill in the required sommer to create your account. To access your account, visit [employer] [facility]LoopItt. Click the blue button labeled Access Patient Portal and then log in with the username and password that you created in the steps above. You will be able to view your test results, lab results, a summary of your visits, upcoming appointments and more. There is also a convenient messaging option where you can send secure messages to your [employer]. In addition, you will have the ability to download any documents or summaries to your computer and/or send the information securely to a physician. Remember that your healthcare information is confidential, so carefully consider who you will allowto register on the [facility] Patient Portal for access to your information. You can also access the [facility] Patient Portal on the [facility] partha. Simply click on Patient Portal and then log into your account. If you would like to receive a full copy of your medical records, please contact the [facility] Medical Records Department by calling [phone], Sunday through Sunday between 8 a.m. and 4:30 p.m. HOW TO SAFELY DISPOSE OF PRESCRIPTION MEDICATIONS Please use one of the following methods to safely dispose of your unused medications. 1.Use a drug disposal kit: the drug disposal pouch allows you to safely discard your old and unuseddrugs. Ask your nurse to give you one when you are discharged.2.Visit a local take-back location: Many local pharmacies and police departments have programs that collect old and unwanted prescriptiondrugs. Call your local pharmacy or go to http://bit.RelTel/7J6Ge1p to find one close to you.3.Make use of household items: Use cat litter or old coffee grounds to dispose medications if other options arenot available. Mix your drugs with these household products, seal them in an airtight container andthrow it into the garbage. Call [facility]: [phone] to be sure your drugs can be disposed of in this way. Some medicines may require a different approach.4.Never flush your medications down the toilet. IF YOU HAVE BEEN PRESCRIBED AN OPIOID FOR PAIN If you have been prescribed an opioid (such as hydrocodone, oxycodone or morphine), it is critical to understand the possible side effects and risks of opioid pain medications. Even when taken as directed, opioids can have several side effects including: Tolerance, meaning you might need to take more of a medication for the same pain relief. Nausea, vomiting and/or constipation. Sleepiness, dizziness, dry mouth, confusion, depression or itching. Physical dependence, meaning you have withdrawal symptoms when a medication is stopped, can develop within a few days. KNOW YOUR RESPONSIBILITIES It is important to know exactly how much and how often to take the opioid pain medications you are prescribed. Never take opioids in higher amounts or more often than prescribed. Do not combine opioids with alcohol or other drugs that cause drowsiness, such as benzodiazepines, also known as benzos, including diazepam and alprazolam, muscle relaxants or sleep aids. Never sell or share prescription opioids. This is illegal. Store opioids in a secure place and out of reach of others (including children, family, friends and visitors). The last page of this document has been signed and retained as a CHART COPY. Signatures Patient Education Materials Fall Prevention in the Home, Adult Confusion Dizziness Medication Leaflets My discharge plan and instructions have been reviewed and explained to me and IHAYDEN PATRICIA M understand my current condition and have read and understand these discharge instructions. I have received a written copy of the plan/instructions. If I have questions, I am aware that I should contact my doctor. Patient/Infection Control Manager Signature: Date/Time: Relationship to Patient: Witness Name/Signature: [facility]Time[id number] Note. MICRO - Microbiology PROCEDURE: Urine Culture [*1] SOURCE: Urine, Clean Catch BODY SITE: COLLECTED DATE/TIME: 05/06/2024 17:18 EDT RECEIVED DATE/TIME: 05/06/2024 21:17 EDT START DATE/TIME: 05/06/2024 21:18 EDT FREE TEXT SOURCE: FINAL REPORTS Final Report [] Verified Date/Time/Personnel: 05/08/2024 08:02 EDT 50,000 - 100,000 cfu/ml Multiple bacterial morphotypes present. Probable Contamination. Suggest recollection if clinically indicated. PRELIMINARY REPORTS Preliminary Report [] Verified Date/Time/Personnel: 05/07/2024 11:32 EDT Culture results pending. Performing Locations *1: This test was performed at: [facility], [address] [place] [address], [facility] , [facility]10-16-2024 History and physical note Date of Service 05/07/2024 Chief Complaint pt comes from home stating dizziness for years but worse the past few days. pts daughter states shehas had altered speech as well as mental status. History of Present Illness This 83-year-old female who lives alone with a past medical history of dementia, arthritis, historyof TIA, hypertension, obstructive sleep apnea, chronic dizziness and progressive weakness presents to the ED per recommendation of primary care physician. She has had worsening balance, coordination and reported dizziness for the last 2 weeks. She has also been more confused per family. She is known to outpatient neurology. Diagnosed with vestibular type dizziness, recommended outpatient vestibular therapy. She is a poor historian, unclear if she followed through. She was given scopolamine patches to aid with dizziness which seem to be exacerbating her symptoms. Oral intake has declined. Patient had no neurological deficits noted in the ED. Hemodynamically stable. Family states that her weakness has worsened, more ataxic to the point that she is unable to care for herself. CT of the head obtained showed no acute intracranial abnormality, does reveal volume loss and atrophy likely moderate chronic white matter ischemia. Recent outpatient MRI of the brain obtained on May 01 showing no acute changes. She was found to have mild leukocytosis at 13.7, based on CBC she appears hemoconcentrated, has dry mucous membranes. Urinalysis obtained, no concerns for infection. Was given a liter bolus in the ED. Troponin is within normal limits. Chest x-ray reveals atelectasis, no consolidation or infiltrates. Patient initially evaluated by PT OT with potential SNF placement. However OT recommended home OT and PT states no needs at discharge. Patient may need to consider extended care facility or assisted living. Evaluated the bedside, no family present. She is alert and oriented x 3. Although poor historian. No signs of distress. With further discussion, patient states the room is not spinning and is not currently experiencing signs of dizziness. Sounds more like lightheadedness with positional changes. Nochest pain or shortness of breath. No abdominal pain, nausea, vomiting or diarrhea. Denies recent injuries or falls. Review of Systems Review of Systems: Reviewed in detail, including general health, HEENT, cardiovascular, respiratory, gastrointestinal, genitourinary, endocrine, musculoskeletal, neurologic, vascular, skin, and psychiatric. All are negative except for those listed in the History of Present Illness Physical Exam Vitals and Measurements T: 36.8 C (Oral) TMIN: 36.4 C (Oral) TMAX: 36.8 C (Oral) HR: 89 (Apical) RR: 18 BP: 121/56 SpO2: 93% No qualifying data available. Vitals Signs(Last 24 hrs)__ Last Charted Minimum Maximum Temp 36.5(MAY 07:09) 36.5(MAY 07:) 36.5(MAY 07 12:46) Heart Rate 89(MAY 07 13:50) 89(MAY 07 13:50) 89(MAY 07 13:50) SBP 134(MAY 07:) 121(MAY 07 13:50) H 160(MAY 06 18:26) DBP 73(MAY 07:) L 56(MAY 07 13:50) H 98(MAY 06 18:) Physical Exam General: No acute distress. Alert and Appropriate. Slow speech, no dysphagia or dysarthria. Lungs: Bilaterally diminished breath sounds with no crepitation or wheeze. Unlabored Cardiovascular: Heart is regular rhythm, S1S2, No extra-audible heart tones Abdomen: Abdomen is soft, nontender. Rounded/Obese. Bowel sounds positive all four quadrants. Extremities: No clubbing, cyanosis or edema. Peripheral pulses palpable. No calf tenderness. Adequate peripheral circulation. Neurological: The patient is awake, oriented to time, people and place. Poor historian following simple commands, moving all extremities. No focal areas of weakness or loss of sensation. Lab Results 05/06 17:23 WBC: 13.7 H Hgb: 16.6 H Hct: 50.2 H Platelet: 282 Neutrophil %: 74.3 Glucose Level: 105 Sodium Level: 137 Potassium Level: 3.8 BUN: 14.0 Creatinine Lvl (s): 0.83 Imaging Results and Diagnostics CT Head or Brain w/o Contrast Result Date: May 06, 2024 Verified By: Contributor_systemJYOTSNA CLINICAL STATEMENT: IMPRESSION: 1. No acute intracranial pathology. 2. Prominent CSF spaces usually indicate volume loss/atrophy as amanifestation of moderate chronic white matter ischemia. COMMENT: Changes resultant from ischemia (even significant ischemia) mayoften be inapparent on CT exam, particularly if imaged early. Additionally,early changes due to neoplastic or inflammatory processes can be subtle tothe extent that they are not prospectively noted. Therefore, if symptomspersist, or clinical suspicion for pathology remains, further evaluation maybe obtained with MRI. XR Chest 1 View Result Date: May 06, 2024 Verified By: SHAUNA NINO DO CLINICAL STATEMENT: IMPRESSION: Bibasilar streaky airspace disease likely represents atelectasis. No focalconsolidation. I have personally reviewed the images of this examination and agree with theresident's findings and interpretation. Assessment/Plan Progressive dizziness/lightheadedness Progressive weakness Gait disturbances Deconditioning Dehydration Hypertension Dementia Hyperlipidemia - Will obtain orthostatic vital signs. Start LR at 60 mL an hour for 18 hours. Patient is likely hypovolemic. Discontinue scopolamine patches. Defer neurological/CVA workup as patient is not exhibiting signs of acute changes, no neurological deficits. CT head no acute process. MRI from 1010 shows no acute process. Progressive weakness, patient not skilled by PT OT. May benefit from ECF or assisted living facility. Will defer to social service director for assistance. Hypertension, stable Hyperlipidemia, continue statin and Zetia Underlying dementia, followed outpatient by neurology. Not currently taking any form of treatment. Would benefit from outpatient follow-up. Plan of care discussed with patient. All questions answered. Patient verbalized understanding is agreeable to plan of care. Discussed with my collaborating physician Dr. Bray. This dictation was performed using voice recognition software and may include grammatical and/or spelling errors. Level of Care Indication Regular Floor DVT Prophylaxis Enoxaparin SQ Maintenance IVF Indication Hypovolemia / EVENS Indwelling Urinary Catheter Indication NA No indwelling catheter Anticipated Timeline of Discharge 48 hours Anticipated DC Disposition ECF / TCU Problem List/Past Medical History Ongoing Asthma CAD in [place] artery Change in mental status Degenerative polyarthritis Dementia Dependence on nocturnal oxygen therapy Dizziness Essential hypertension Frozen shoulder Hand arthritis History of chest pain History of pulmonary embolism History of TIA (transient ischemic attack) Hyperlipemia, mixed Mass of brain Memory difficulties Meningioma, small left tentorial. stable on MRI 04/2024 MRI of brain abnormal SHIRA (obstructive sleep apnea) - not on CPAP or nocturnal O2 Peptic reflux disease Power of oracle ag[employer]m consultant for health care on file, Jorge Quintero Jr. [phone] S/P cardiac catheterization, 05/31/2009 Severe persistent asthma Sleep apnea Vestibular dysfunction Wears hearing aid in both ears Historical HTN - Hypertension Long-term current use of proton pump inhibitor therapy MVD - Mitral valve disease Procedure/Surgical History CT of thorax: 09/08/21 Echocardiogram: 07/21/21 Prescription event monitorin09/22/16 Echocardiogram: 08/24/16 Cardiovascular stress testin07/14/14 Eye surgery: 10/15/07 Cardiac catheterization: 07/25/05 Cardiac catheterization: 10/29/02 Arthroplasty- right: 1999 Foot: 1987 Myringoplasty Medications Home Medications (9) Active albuterol-ipratropium 2.5 mg-0.5 mg/3 mL inhalation solution 3 mL, PRN, Inhalation, QID Breo Ellipta 100 mcg-25 mcg/inh inhalation powder 1 puff(s), Inhalation, qDay ezetimibe 10 mg oral tablet 10 mg = 1 tab(s), Oral, qDay furosemide 20 mg oral tablet 20 mg = 1 tab(s), Oral, qDay hydrochlorothiazide-triamterene 25 mg-37.5 mg oral capsule 1 cap(s), Oral, Daily nitroglycerin 0.2 mg/hr transdermal film, extended release 1 patch(es), Topical, qDay rosuvastatin 5 mg oral tablet See Instructions scopolamine 1 mg/72 hr transdermal film, extended release 1 patch(es), Transdermal, q72h zinc (as acetate) 50 mg oral capsule 50 mg = 1 cap(s), Oral, TID Allergies Ceclor hives Naprosyn hives Norflex hives Parafon Forte DSC hives Seafood Terramycin with Polymyxin B Sulfate hives Vibramycin hives codeine hives erythromycin hives penicillin hives sulfa drug hives testosterone hives Social History Smoking Status - 07/07/2016 Never smoker Alcohol - No Risk, 05/25/2019 Use: Never., 04/02/2019 Employment/School Status: Retired. 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 She was never .., 06/07/2021 Living situation: Home/Independent. Primary Filtration Plant Mechanic: Lives alone, her jlqlkb-[id number] Asha Quintero, lives [address] away and checks on her daily.., 05/25/2021 Nutrition/Health Caffeine intake amount: 1-2 servings per day., 01/17/2023 Substance Abuse - No Risk, 05/25/2019 Use: Never., 04/02/2019 Tobacco - No Risk, 05/25/2019 Nicotine Use: Never (less than 100 in lifetime)., 04/09/2024 Family History Breast cancer: Mother. Heart attack: Father. Health Status Family Member(s) Family Member(s) Relationship: Mother, Name: Yuridia Quintero, Age: 75 Years Relationship: Father, Name: Arron Quintero, Age: 83 Years, Cause: heart Relationship: Maternal Grandmother, Age: 62 Years, Cause: [place] Relationship: Paternal Grandmother, Age: 40 Years, Cause: Peritionitis Relationship: Paternal Grandfather, Age: 70 Years, Cause: [place] Relationship: Maternal Grandfather, Age: 70 Years, Cause: Lung Cancer Relationship: Brother, Name: Jorge Quintero, Age: 73 Years, Cause: car accident Immunizations pneumococcal 13-valent conjugate vaccine: 0 unknown unit (05/19/15) SARS-CoV-2 (COVID-19) mRNA-1273 vaccine: 50 mcg (03/01/22) SARS-CoV-2 (COVID-19) mRNA-1273 vaccine: 50 mcg (08/24/21) SARS-CoV-2 (COVID-19) mRNA-1273 vaccine: 0.5 unknown unit (01/04/21) SARS-CoV-2 (COVID-19) mRNA-1273 vaccine: 0.5 unknown unit (12/03/20) tetanus/diphth/pertuss (Tdap) adult/adol: 0.5 mL (05/25/19) tetanus/diphth/pertuss (Tdap) adult/adol: 0 unknown unit (04/02/13) Code Status Code Status - Ordered -- 05/06/24 21:10:00 EDT, Full Code, Constant Order Digitally Signed by ZAHIRA RUSSELL on 05/07/2024 04:28 PM [id number] History and physical note Date of Service 05/07/2024 Chief Complaint pt comes from home stating dizziness for years but worse the past few days. pts daughter states shehas had altered speech as well as mental status. History of Present Illness This 83-year-old female who lives alone with a past medical history of dementia, arthritis, historyof TIA, hypertension, obstructive sleep apnea, chronic dizziness and progressive weakness presents to the ED per recommendation of primary care physician. She has had worsening balance, coordination and reported dizziness for the last 2 weeks. She has also been more confused per family. She is known to outpatient neurology. Diagnosed with vestibular type dizziness, recommended outpatient vestibular therapy. She is a poor historian, unclear if she followed through. She was given scopolamine patches to aid with dizziness which seem to be exacerbating her symptoms. Oral intake has declined. Patient had no neurological deficits noted in the ED. Hemodynamically stable. Family states that her weakness has worsened, more ataxic to the point that she is unable to care for herself. CT of the head obtained showed no acute intracranial abnormality, does reveal volume loss and atrophy likely moderate chronic white matter ischemia. Recent outpatient MRI of the brain obtained on May 01 showing no acute changes. She was found to have mild leukocytosis at 13.7, based on CBC she appears hemoconcentrated, has dry mucous membranes. Urinalysis obtained, no concerns for infection. Was given a liter bolus in the ED. Troponin is within normal limits. Chest x-ray reveals atelectasis, no consolidation or infiltrates. Patient initially evaluated by PT OT with potential SNF placement. However OT recommended home OT and PT states no needs at discharge. Patient may need to consider extended care facility or assisted living. Evaluated the bedside, no family present. She is alert and oriented x 3. Although poor historian. No signs of distress. With further discussion, patient states the room is not spinning and is not currently experiencing signs of dizziness. Sounds more like lightheadedness with positional changes. Nochest pain or shortness of breath. No abdominal pain, nausea, vomiting or diarrhea. Denies recent injuries or falls. Review of Systems Review of Systems: Reviewed in detail, including general health, HEENT, cardiovascular, respiratory, gastrointestinal, genitourinary, endocrine, musculoskeletal, neurologic, vascular, skin, and psychiatric. All are negative except for those listed in the History of Present Illness Physical Exam Vitals and Measurements T: 36.8 C (Oral) TMIN: 36.4 C (Oral) TMAX: 36.8 C (Oral) HR: 89 (Apical) RR: 18 BP: 121/56 SpO2: 93% No qualifying data available. Vitals Signs(Last 24 hrs)__ Last Charted Minimum Maximum Temp 36.5(MAY 07 15:09) 36.5(MAY 07 15:09) 36.5(MAY 07 12:46) Heart Rate 89(MAY 07 13:50) 89(MAY 07 13:50) 89(MAY 07 13:50) SBP 134(MAY 07 15:09) 121(MAY 07 13:50) H 160(MAY 06 18:26) DBP 73(MAY 07 15:09) L 56(MAY 07 13:50) H 98(MAY 06 18:) Physical Exam General: No acute distress. Alert and Appropriate. Slow speech, no dysphagia or dysarthria. Lungs: Bilaterally diminished breath sounds with no crepitation or wheeze. Unlabored Cardiovascular: Heart is regular rhythm, S1S2, No extra-audible heart tones Abdomen: Abdomen is soft, nontender. Rounded/Obese. Bowel sounds positive all four quadrants. Extremities: No clubbing, cyanosis or edema. Peripheral pulses palpable. No calf tenderness. Adequate peripheral circulation. Neurological: The patient is awake, oriented to time, people and place. Poor historian following simple commands, moving all extremities. No focal areas of weakness or loss of sensation. Lab Results 05/06 17:23 WBC: 13.7 H Hgb: 16.6 H Hct: 50.2 H Platelet: 282 Neutrophil %: 74.3 Glucose Level: 105 Sodium Level: 137 Potassium Level: 3.8 BUN: 14.0 Creatinine Lvl (s): 0.83 Imaging Results [address] Diagnostics CT Head or Brain w/o Contrast Result Date: May 06, 2024 Verified By: Guille_JYOTSNA jacobs CLINICAL STATEMENT: IMPRESSION: 1. No acute intracranial pathology. 2. Prominent CSF spaces usually indicate volume loss/atrophy as amanifestation of moderate chronic white matter ischemia. COMMENT: Changes resultant from ischemia (even significant ischemia) mayoften be inapparent on CT exam, particularly if imaged early. Additionally,early changes due to neoplastic or inflammatory processes can be subtle tothe extent that they are not prospectively noted. Therefore, if symptomspersist, or clinical suspicion for pathology remains, further evaluation maybe obtained with MRI. XR Chest 1 View Result Date: May 06, 2024 Verified By: SHAUNA NINO DO CLINICAL STATEMENT: IMPRESSION: Bibasilar streaky airspace disease likely represents atelectasis. No focalconsolidation. I have personally reviewed the images of this examination and agree with theresident's findings and interpretation. Assessment/Plan Progressive dizziness/lightheadedness Progressive weakness Gait disturbances Deconditioning Dehydration Hypertension Dementia Hyperlipidemia - Will obtain orthostatic vital signs. Start LR at 60 mL an hour for 18 hours. Patient is likely hypovolemic. Discontinue scopolamine patches. Defer neurological/CVA workup as patient is not exhibiting signs of acute changes, no neurological deficits. CT head no acute process. MRI from 1010 shows no acute process. Progressive weakness, patient not skilled by PT OT. May benefit from ECF or assisted living facility. Will defer to social service director for assistance. Hypertension, stable Hyperlipidemia, continue statin and Zetia Underlying dementia, followed outpatient by neurology. Not currently taking any form of treatment. Would benefit from outpatient follow-up. Plan of care discussed with patient. All questions answered. Patient verbalized understanding is agreeable to plan of care. Discussed with my collaborating physician Dr. Bray. This dictation was performed using voice recognition software and may include grammatical and/or spelling errors. Level of Care Indication Regular Floor DVT Prophylaxis Enoxaparin SQ Maintenance IVF Indication Hypovolemia / EVENS Indwelling Urinary Catheter Indication NA No indwelling catheter Anticipated Timeline of Discharge 48 hours Anticipated DC Disposition ECF / TCU Problem List/Past Medical History Ongoing Asthma CAD in [place] artery Change in mental status Degenerative polyarthritis Dementia Dependence on nocturnal oxygen therapy Dizziness Essential hypertension Frozen shoulder Hand arthritis History of chest pain History of pulmonary embolism History of TIA (transient ischemic attack) Hyperlipemia, mixed Mass of brain Memory difficulties Meningioma, small left tentorial. stable on MRI 04/2024 MRI of brain abnormal SHIRA (obstructive sleep apnea) - not on CPAP or nocturnal O2 Peptic reflux disease Power of [employer] consultant for health care on file, Jorge Quintero Jr. [phone] S/P cardiac catheterization, 05/31/2009 Severe persistent asthma Sleep apnea Vestibular dysfunction Wears hearing aid in both ears Historical HTN - Hypertension Long-term current use of proton pump inhibitor therapy MVD - Mitral valve disease Procedure/Surgical History CT of thorax: 09/08/21 Echocardiogram: 07/21/21 Prescription event monitorin09/22/16 Echocardiogram: 08/24/16 Cardiovascular stress testin07/14/14 Eye surgery: 10/15/07 Cardiac catheterization: 07/25/05 Cardiac catheterization: 10/29/02 Arthroplasty- right: 1999 Foot: 1987 Myringoplasty Medications Home Medications (9) Active albuterol-ipratropium 2.5 mg-0.5 mg/3 mL inhalation solution 3 mL, PRN, Inhalation, QID Breo Ellipta 100 mcg-25 mcg/inh inhalation powder 1 puff(s), Inhalation, qDay ezetimibe 10 mg oral tablet 10 mg = 1 tab(s), Oral, qDay furosemide 20 mg oral tablet 20 mg = 1 tab(s), Oral, qDay hydrochlorothiazide-triamterene 25 mg-37.5 mg oral capsule 1 cap(s), Oral, Daily nitroglycerin 0.2 mg/hr transdermal film, extended release 1 patch(es), Topical, qDay rosuvastatin 5 mg oral tablet See Instructions scopolamine 1 mg/72 hr transdermal film, extended release 1 patch(es), Transdermal, q72h zinc (as acetate) 50 mg oral capsule 50 mg = 1 cap(s), Oral, TID Allergies Ceclor hives Naprosyn hives Norflex hives Parafon Forte DSC hives Seafood Terramycin with Polymyxin B Sulfate hives Vibramycin hives codeine hives erythromycin hives penicillin hives sulfa drug hives testosterone hives Social History Smoking Status - 07/07/2016 Never smoker Alcohol - No Risk, 05/25/2019 Use: Never., 04/02/2019 Employment/School Status: Retired. 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 She was never .., 06/07/2021 Living situation: Home/Independent. Primary Filtration Plant Mechanic: Lives alone, her [id number] Asha Quintero, lives [address] away and checks on her daily.., 05/25/2021 Nutrition/Health Caffeine intake amount: 1-2 servings per day., 01/17/2023 Substance Abuse - No Risk, 05/25/2019 Use: Never., 04/02/2019 Tobacco - No Risk, 05/25/2019 Nicotine Use: Never (less than 100 in lifetime)., 04/09/2024 Family History Breast cancer: Mother. Heart attack: Father. Health Status Family Member(s) Family Member(s) Relationship: Mother, Name: Yuridia Quintero, Age: 75 Years Relationship: Father, Name: Arron Quintero, Age: 83 Years, Cause: heart Relationship: Maternal Grandmother, Age: 62 Years, Cause: VA Relationship: Paternal Grandmother, Age: 40 Years, Cause: Peritionitis Relationship: Paternal Grandfather, Age: 70 Years, Cause: VA Relationship: Maternal Grandfather, Age: 70 Years, Cause: Lung Cancer Relationship: Brother, Name: Jorge Quintero, Age: 73 Years, Cause: car accident Immunizations pneumococcal 13-valent conjugate vaccine: 0 unknown unit (05/19/15) SARS-CoV-2 (COVID-19) mRNA-1273 vaccine: 50 mcg (03/01/22) SARS-CoV-2 (COVID-19) mRNA-1273 vaccine: 50 mcg (08/24/21) SARS-CoV-2 (COVID-19) mRNA-1273 vaccine: 0.5 unknown unit (01/04/21) SARS-CoV-2 (COVID-19) mRNA-1273 vaccine: 0.5 unknown unit (12/03/20) tetanus/diphth/pertuss (Tdap) adult/adol: 0.5 mL (05/25/19) tetanus/diphth/pertuss (Tdap) adult/adol: 0 unknown unit (04/02/13) Code Status Code Status - Ordered -- 05/06/24 21:10:00 EDT, Full Code, Constant Order Digitally Signed by ZAHIRA RUSSELL on 05/07/2024 04:28 PM [id number] + Plan noteExtracted from: Title:History and Physical Author:ZAHIRA RUSSELL Date:05/07/24 Progressive dizziness/lighth eadedness Progressive weakness Gait disturbances Deconditioning Dehydration Hypertension Dementia Hyperlipidemia - Will obtain orthostatic vital signs. Start LR at 60 mL an hour for 18 hours. Patient is likely hypovolemic. Discontinue scopolamine patches. Defer neurological/CVA workup as patient is not exhibiting signs of acute changes, no neurological deficits. CT head no acute process. MRI from 1010 shows no acute process. Progressive weakness, patient not skilled by PT OT. May benefit from ECF or assisted living facility. Will defer to social service director for assistance. Hypertension, stable Hyperlipidemia, continue statin and Zetia Underlying dementia, followed outpatient by neurology. Not currently taking any form of treatment. Would benefit from outpatient follow-up. Plan of care discussed with patient. All questions answered. Patient verbalized understanding is agreeable to plan of care. Discussed with my collaborating physician Dr. Bray. This dictation was performed using voice recognition software and may include grammatical and/or spelling errors. Level of Care Indication Regular Floor DVT Prophylaxis Enoxaparin SQ Maintenance IVF Indication Hypovolemia / EVENS Indwelling Urinary Catheter Indication NA No indwelling catheter Anticipated Timeline of Discharge 48 hours Anticipated DC Disposition ECF / TCU Addendum by SHAHRIAR BRAY MD on May 07, 2024 17:45:08 EDT Collaborative Care Team [facility] Medicine This is a shared/split visit Patient was seen and examined during hospitalization Labs imaging and documentation were reviewed Care discussed during a.m. rounds treatment plan was developed independently and implemented with FIBER LOCKING SUPERVISOR assistance Agree with assessment and plan 83-year-old with past medical history as noted above significant for dementia, chronic vertigo for which patient follows up with neurology/vestibular therapy who presents with weakness and progressive decline. Labs were reviewed. CBC appears concerning for hemoconcentration. Metabolic panel is without significant derangement. [id number] UA is negative. MRI obtained on 05/01 notable for Stable small left tentorial meningioma, Stable chronic small vessel ischemic changes. Patient has been admitted for PT evaluation and potential ECF placement, IV fluid hydration. Orthostatic vital signs have been ordered. Will hold off on scopolamine for now patient may be developing anticholinergic symptoms. Hold off on diuretics reexamine in AM. Future Scheduled Tests Laboratory* Lipid Profile 01/11/24 Radiology* XR Knee 3 Views Left 04/24/24 [facility] 10-15-2024 Note ORIGINAL EXAMINATION: CT OF THE HEAD WITHOUT MGZAEGMT04/15/2024 8:[address] HEAD/BRAIN WITHOUT CONTRAST EXAM DESCRIPTION: TECHNIQUE: CT of the head was performed without the administration of intravenous contrast. Automated exposure control, iterative reconstruction, and/or weight based adjustment of the mA/kV was utilized to reduce the radiation dose to as low as reasonably achievable. COMPARISON: MR brain, May 01, 2024. HISTORY: ORDERING SYSTEM PROVIDED HISTORY: Reason for Exam: DIZZY, SLURRED SPEECH X 3 DAYS, worsening ams, limited historian due to dementia dizziness, slowed speach x3 days FINDINGS: There is no evidence of mass, midline shift, hemorrhage, or infarct. Although the brain morphology appears normal, the ventricles, cortical sulci, and subarachnoid cisterns appear prominent. There are no extra-axial fluid collections. No regions of pathologic attenuation are evident. Decreased density periventricular white matter. Regions of the orbits and paranasal sinuses included within the field of view are unremarkable. There is no displaced fracture or osseous neoplasm. The extracalvarial soft tissues appear unremarkable. IMPRESSION: 1. No acute intracranial pathology. 2. Prominent CSF spaces usually indicate volume loss/atrophy as a manifestation of moderate chronic white matter ischemia. COMMENT: Changes resultant from ischemia (even significant ischemia) may often be inapparent on CT exam, particularly if imaged early. Additionally, early changes due to neoplastic or inflammatory processes can be subtle to the extent that they are not prospectively noted. Therefore, if symptoms persist, or clinical suspicion for pathology remains, further evaluation may be obtained with MRI. Interpreted by: Niall Quevedo MD Preliminary Report By: Niall Quevedo MD Electronically signed By Niall Quevedo MD Dictated Date: 05/06/2024 9:05:01 PM Prelim Date: 05/06/2024 9:05:39 PM Sign Date: 05/06/2024 9:05:39 PM Ordering Provider: [facility]10-15-2024 Note ORIGINAL EXAMINATION: ONE XRAY VIEW OF THE CHEST 05/06/2024 5:36 pm COMPARISON: Chest x-ray 01/30/[address] thorax 09/08/2021 HISTORY: ORDERING SYSTEM PROVIDED HISTORY: Reason for Exam: Dizzy FINDINGS: Cardiomediastinal contour stable. Prominent left epicardial fat pad. Low lung volumes with hypoventilatory changes including bibasilar streaky airspace disease likely representing atelectasis. No definite focal consolidation. No pneumothorax or large pleural effusion. No acute osseous abnormality. Degenerative changes of the spine. IMPRESSION: Bibasilar streaky airspace disease likely represents atelectasis. No focal consolidation. I have personally reviewed the images of this examination and agree with the resident's findings and interpretation. Interpreted by: Shauna Nino Preliminary Report By: Tomer Sofia Electronically signed By Shauna Nino Dictated Date: 05/06/2024 5:43:29 PM Prelim Date: 05/06/2024 5:45:38 PM Sign Date: 05/06/2024 10:25:19 PM Ordering Provider: [facility]10-15-2024 NoteSINUS ARRHYTHMIA LAD, CONSIDER LEFT ANTERIOR FASCICULAR BLOCK ST ELEVATION, CONSIDER INFERIOR INJURY This EKG was read and contributed directly to the care of the patient Electronic Signature: KENZIE HERNANDEZ MD 05/06/2024 18:08:[address] [place] [address] 08-07-2024 Hospital Discharge instructions Patient Education 02/27/2024 16:40:11 Dizziness, Uncertain Cause Dizziness (Uncertain Cause) Dizziness is a common symptom. It may be described as lightheadedness, spinning, or feeling like you are going to faint. Dizziness can have many causes. Be sure to tell the healthcare provider about: All medicines you take, including prescription, upoi-bvx-tobrdxp, herbs, and supplements Any other symptoms you have Any health problems you are being treated for Any past major health problems you've had, such as a heart attack, balance issues, hearing problems, or blood pressure problems Anything that causes the dizziness to get worse or better Today's exam did not show an exact cause for your dizziness. Other tests may be needed. Follow up with your healthcare provider. Home care Dizziness that occurs with sudden standing may be a sign of mild dehydration. Drink extra fluids for the next few days. If you recently started a new medicine, stopped a medicine, or had the dose of a current medicine changed, talk with the prescribing healthcare provider. Your medicine plan may need adjustment. If dizziness lasts more than a few seconds, sit or lie down until it passes. This may help prevent injury in case you pass out. Get up slowly when you feel better. Don't drive or use power tools or dangerous equipment until you have had no dizziness for at least 48 hours. Follow-up care Follow up with your healthcare provider for further evaluation within the next 7 days or as advised. When to seek medical advice Call your healthcare provider for any of the following: Worsening of symptoms or new symptoms Passing out or seizure Repeated vomiting Headache Palpitations (the sense that your heart is fluttering or beating fast or hard) Shortness of breath Blood in vomit or stool (black or red color) Weakness of an arm or leg or 1 side of the face Vision or hearing changes Trouble walking or speaking Chest, arm, neck, back, or jaw pain [id number] [employer] [place] [address], [place] [address]. All rights reserved. This information is not intended as a substitute for professional medical care. Always follow yourhealthcare professional's instructions. Follow Up Care 02/27/2024 14:06:24 With:JAMES LEACH DO Address: [address] [place] [address] Physicians [place], [place] [id number]- [phone] When:2-4 days [facility] 08-07-2024 Note Discharge Instructions Thank you for allowing [facility] to assist you with your healthcare needs. The following is importantdischarge information regarding your hospital visit. What to Do Next Instructions from Your Care Team No qualifying data available. Post Acute Orders No qualifying data available. You Need to Schedule the Following Appointments Follow Up with JAMES LEACH DO When:Within 2-4 days Where:[address] [facility] [place] [address]- [phone] Allergies Ceclor hives Naprosyn hives Norflex hives Parafon Forte DSC hives Seafood Terramycin with Polymyxin B Sulfate hives Vibramycin hives codeine hives erythromycin hives penicillin hives sulfa drug hives testosterone hives Medications Please ask your primary doctor or pharmacist before taking any other medication not listed, including over the counter drugs, herbal medications, vitamins and or supplements as they may interact withyour home medications. What How Much When Why Instructions Last Dose Unchanged albuterol-ipratropium (DuoNeb) 3 Milliliter Nebulized inhalation Four (4) times a day as needed for Wheezing Unchanged aspirin 81 Milligram by mouth Every day Unchanged budesonide (budesonide 0.5 mg/ 2 mL inhalation suspension) 2 Milliliter by inhalation Two (2) times a day as needed for Wheezing Unchanged calcium-vitamin D (Calcium with Vitamin D 500 mg-2.5 mcg (100 intl units) oral tablet, chewable) Chewed Once a day Unchanged diclofenac topical (diclofenac 1% topical gel) 1 application Topical Four (4) times a day Frozen shoulder Duration: 14 Days Unchanged ezetimibe (ezetimibe 10 mg oral tablet) 1 tab(s) by mouth Once a day Unchanged fluticasone-vilanterol (Breo Ellipta 100 mcg-25 mcg/ inh inhalation powder) 1 puff(s) by inhalation Every day Unchanged folic acid Once a day Unchanged furosemide (furosemide 20 mg oral tablet) 1 tab(s) by mouth Once a day Unchanged hydrochlorothiazide-triamterene (hydrochlorothiazide-triamterene 25 mg-37.5 mg oral capsule) 1 cap by mouth Every day Dizziness Meniere disease Unchanged multivitamin with minerals (Centrum Silver oral tablet) by mouth Once a day Unchanged nitroGLYcerin (nitroglycerin 0.2 mg/ hr transdermal film, extended release) 1 patch(es) Topical Once a day LEAVE ON FOR 12 TO 14 HOURS THEN REMOVE FOR A NITRATE-FREE INTERVAL OF 10 TO 12 HOURS Unchanged omega-3 polyunsaturated fatty acids (Fish Oil 1000 mg oral capsule) 1 cap by mouth Once a day Unchanged potassium gluconate (potassium gluconate 595 mg (99 mg K+) oral tablet) 1 cap by mouth Every day Unchanged rosuvastatin (rosuvastatin 5 mg oral tablet) See instructions TAKE 1 TABLET EVERY DAY Unchanged zinc acetate (zinc (as acetate) 50 mg oral capsule) 1 cap by mouth Three (3) times a day Please take this list to your next doctor s visit. Bring all medications you take, including over the counter medications, herbals and other supplements with you to your doctor s visit. Patients and families are reminded to discard old lists and to update any records with all medication providers or retail pharmacies. Education Materials Dizziness (Uncertain Cause) Dizziness is a common symptom. It may be described as lightheadedness, spinning, or feeling like you are going to faint. Dizziness can have many causes. Be sure to tell the healthcare provider about: All medicines you take, including prescription, ngxa-kzh-kouxplp, herbs, and supplements Any other symptoms you have Any health problems you are being treated for Any past major health problems you've had, such as a heart attack, balance issues, hearing problems, or blood pressure problems Anything that causes the dizziness to get worse or better Today's exam did not show an exact cause for your dizziness. Other tests may be needed. Follow up with your healthcare provider. Home care Dizziness that occurs with sudden standing may be a sign of mild dehydration. Drink extra fluids for the next few days. If you recently started a new medicine, stopped a medicine, or had the dose of a current medicine changed, talk with the prescribing healthcare provider. Your medicine plan may need adjustment. If dizziness lasts more than a few seconds, sit or lie down until it passes. This may help prevent injury in case you pass out. Get up slowly when you feel better. Don't drive or use power tools or dangerous equipment until you have had no dizziness for at least 48 hours. Follow-up care Follow up with your healthcare provider for further evaluation within the next 7 days or as advised. When to seek medical advice Call your healthcare provider for any of the following: Worsening of symptoms or new symptoms Passing out or seizure Repeated vomiting Headache Palpitations (the sense that your heart is fluttering or beating fast or hard) Shortness of breath Blood in vomit or stool (black or red color) Weakness of an arm or leg or 1 side of the face Vision or hearing changes Trouble walking or speaking Chest, arm, neck, back, or jaw pain [phone] [employer]. [address] [place] [address]. All rights reserved. This information is not intended as a substitute for professional medical care. Always follow yourhealthcare professional's instructions. Additional Information VACCINATE! IT SAVES LIVES! Members of the community who have not yet received the COVID-19 vaccine and would like to receive it can visit one of [facility] vaccine clinics. There are many vaccine clinic locations within the [facility]. For locations and available times, please visit www.gettheshot.coronavirus.[place].gov/. It is important to note that some COVID mobile vaccine clinics are held outdoors and may be canceled in rainy or stormy conditions. To learn more about pediatric vaccinations (ages 5-11), we invite you to visit the [facility] webpage. https://www.[facility].org/pages/9347-Gcjfu-Ulokwwubmrs-Pqjebluerp-Czodk-Jru stions.htmlTo learn more about the COVID-19 vaccine, we invite you to visit the CDC website for a list of frequently asked questions. https://www.cdc.gov/coronavirus/2019-ncov/vaccines/faq.html [facility] Patient Portal Access Instructions: Stay connected with your healthcare team and access your personal medical information anytime with the [facility] Patient Portal. If you would like a full copy of your medical records please contact the [facility] Medical Records Department Sunday through Sunday between 8a.m. and 4:30p.m. Please follow the directions below to access the portal: 1.Access the email account you provided upon registration to the hospital.2.Look for an invitation email from [facility].3.Open the email and access the invitation link: Accept Invitation to [facility]4.Fill in the required sommer to create your account. Sign into www.[employer] with your username and password that you created in the above steps to stay up to date. You can then view a summary of results, a summary of your visits, and the ability to download your summaries to your computer or send the information securely to a physician. Remember that your healthcare information is confidential, so carefully consider who you will allow to register on the [facility] Patient Portal for access to your information. You can also access the [facility] Patient Portal on the [employer] partha. Simply click on Health Records under [employer] and then click on the ONE [employer] logo. HOW TO SAFELY DISPOSE OF PRESCRIPTION MEDICATIONS Please use one of the following methods to safely dispose of your unused medications. 1.Use a drug disposal kit: the drug disposal pouch allows you to safely discard your old and unuseddrugs. Ask your nurse to give you one when you are discharged.2.Visit a local take-back location: Many local pharmacies and police departments have programs that collect old and unwanted prescriptiondrugs. Call your local pharmacy or go to http://Vestec.RelTel/7X0Ss3j to find one close to you.3.Make use of household items: Use cat litter or old coffee grounds to dispose medications if other options arenot available. Mix your drugs with these household products, seal them in an airtight container andthrow it into the garbage. Call [facility]: [phone] to be sure your drugs can be disposed of in this way. Some medicines may require a different approach.4.Never flush your medications down the toilet. IF YOU HAVE BEEN PRESCRIBED AN OPIOIDS FOR PAIN If you have been prescribed an opioid (such as hydrocodone, oxycodone or morphine), it is critical to understand the possible side effects and risks of opioid pain medications. Even when taken as directed, opioids can have several side effects including: Tolerance, meaning you might need to take more of a medication for the same pain relief. Nausea, vomiting and/or constipation. Sleepiness, dizziness, dry mouth, confusion, depression or itching. Physical dependence, meaning you have withdrawal symptoms when a medication is stopped ? this can develop within a few days. KNOW YOUR RESPONSIBILITIES It is important to know exactly how much and how often to take the opioid pain medications you are prescribed. Never take opioids in higher amounts or more often than prescribed. Do not combine opioids with alcohol or other drugs that cause drowsiness, such as benzodiazepines, also known as benzos,including diazepam and alprazolam, muscle relaxants or sleep aids. Never sell or share prescriptionopioids. This is illegal. Store opioids in a secure place and out of reach of others (including children, family, friends and visitors). The last page(s) of this document has been signed and retained as a CHART COPY Signatures Patient Education Materials Dizziness, Uncertain Cause Medication Leaflets My discharge plan and instructions have been reviewed and explained to me and I,HAYDEN YURI M understand my current condition and have read and understand these discharge instructions. I have received a written copy of the plan/instructions. If I have questions, I am aware that I should contact my doctor. Patient/Infection Control Manager Signature: Date/Time: Relationship to Patient: Witness Name/Signature: Date/Time: [facility]08-07-2024 Note ORIGINAL HISTORY: Dizziness COMPARISON: 25 May 2019 TECHNIQUE: Routine noncontrast head CT, with sagittal and coronal reconstructions. This exam was performed according to our departmental dose optimization program, and includes the following measures where applicable: automated exposure control, adjustment of the mAs and/or kVp according to patient size and/or exam, and an iterative reconstruction algorithm. FINDINGS: The ventricles and sulci are normal to mildly enlarged. There are no abnormal intra or extra-axial fluid collections. There is mild to moderate irregular decreased attenuation in the cerebral white matter. Buenrostro-white matter differentiation is maintained. The calvaria and the bones of the base of the skull are intact. IMPRESSION: Small vessel ischemic disease and mild volume loss. Interpreted by: Fabian Del Rio MD Preliminary Report By: Fabian Del Rio MD Electronically signed By Fabian Del Rio MD Dictated Date: 02/27/2024 3:58:03 PM Prelim Date: 02/27/2024 3:59:00 PM Sign Date: 02/27/2024 3:59:00 PM [facility] Note Sinus rhythm Abnormal R-wave progression, late transition Left ventricular hypertrophy Electronic Signature: TARA BORJA MD 02/27/2024 16:14:57[facility] 07-25-2024 Hospital Discharge instructions Patient Education 02/14/2024 11:50:32 Dizziness, Uncertain Cause Dizziness (Uncertain Cause) Dizziness is a common symptom. It may be described as lightheadedness, spinning, or feeling like you are going to faint. Dizziness can have many causes. Be sure to tell the healthcare provider about: All medicines you take, including prescription, [id number], herbs, and supplements Any other symptoms you have Any health problems you are being treated for Any past major health problems you've had, such as a heart attack, balance issues, hearing problems, or blood pressure problems Anything that causes the dizziness to get worse or better Today's exam did not show an exact cause for your dizziness. Other tests may be needed. Follow up with your healthcare provider. Home care Dizziness that occurs with sudden standing may be a sign of mild dehydration. Drink extra fluids for the next few days. If you recently started a new medicine, stopped a medicine, or had the dose of a current medicine changed, talk with the prescribing healthcare provider. Your medicine plan may need adjustment. If dizziness lasts more than a few seconds, sit or lie down until it passes. This may help prevent injury in case you pass out. Get up slowly when you feel better. Don't drive or use power tools or dangerous equipment until you have had no dizziness for at least 48 hours. Follow-up care Follow up with your healthcare provider for further evaluation within the next 7 days or as advised. When to seek medical advice Call your healthcare provider for any of the following: Worsening of symptoms or new symptoms Passing out or seizure Repeated vomiting Headache Palpitations (the sense that your heart is fluttering or beating fast or hard) Shortness of breath Blood in vomit or stool (black or red color) Weakness of an arm or leg or 1 side of the face Vision or hearing changes Trouble walking or speaking Chest, arm, neck, back, or jaw pain [id number] [employer]. [address] [place] [address], [place] [address]. All rights reserved. This information is not intended as a substitute for professional medical care. Always follow yourhealthcare professional's instructions. Follow Up Care 02/14/2024 10:42:20 With:JAMES LEACH DO Address: [address] [place] [phone] When:2-4 days [facility] 07-25-2024 Emergency department Discharge summary Discharge Instructions Thank you for allowing [facility] to assist you with your healthcare needs. The following is importantdischarge information regarding your hospital visit. Diagnosis from Today's Visit Dizziness What to Do Next Instructions from Your Care Team No qualifying data available. Post Acute Orders No qualifying data available. You Need to Schedule the Following Appointments Follow Up with JAMES LEACH DO When:Within 2-4 days Where:[address] [place] [id number] [phone] Allergies Ceclor hives Naprosyn hives Norflex hives Parafon Forte DSC hives Seafood Terramycin with Polymyxin B Sulfate hives Vibramycin hives codeine hives erythromycin hives penicillin hives sulfa drug hives testosterone hives Medications Please ask your primary doctor or pharmacist before taking any other medication not listed, including over the counter drugs, herbal medications, vitamins and or supplements as they may interact withyour home medications. What How Much When Why Instructions Last Dose Unchanged albuterol-ipratropium (DuoNeb) 3 Milliliter Nebulized inhalation Four (4) times a day as needed for Wheezing Unchanged aspirin 81 Milligram by mouth Every day Unchanged budesonide (budesonide 0.5 mg/ 2 mL inhalation suspension) 2 Milliliter by inhalation Two (2) times a day as needed for Wheezing Unchanged calcium-vitamin D (Calcium with Vitamin D 500 mg-2.5 mcg (100 intl units) oral tablet, chewable) Chewed Once a day Unchanged diclofenac topical (diclofenac 1% topical gel) 1 application Topical Four (4) times a day Frozen shoulder Duration: 14 Days Unchanged ezetimibe (ezetimibe 10 mg oral tablet) 1 tab(s) by mouth Once a day Unchanged fluticasone-vilanterol (Breo Ellipta 100 mcg-25 mcg/ inh inhalation powder) 1 puff(s) by inhalation Every day Unchanged folic acid Once a day Unchanged furosemide (furosemide 20 mg oral tablet) 1 tab(s) by mouth Once a day Unchanged hydrochlorothiazide-triamterene (hydrochlorothiazide-triamterene 25 mg-37.5 mg oral capsule) 1 cap by mouth Every day Dizziness Meniere disease Unchanged multivitamin with minerals (Centrum Silver oral tablet) by mouth Once a day Unchanged nitroGLYcerin (nitroglycerin 0.2 mg/ hr transdermal film, extended release) 1 patch(es) Topical Once a day LEAVE ON FOR 12 TO 14 HOURS THEN REMOVE FOR A NITRATE-FREE INTERVAL OF 10 TO 12 HOURS Unchanged omega-3 polyunsaturated fatty acids (Fish Oil 1000 mg oral capsule) 1 cap by mouth Once a day Unchanged potassium gluconate (potassium gluconate 595 mg (99 mg K+) oral tablet) 1 cap by mouth Every day Unchanged rosuvastatin (rosuvastatin 5 mg oral tablet) See instructions TAKE 1 TABLET EVERY DAY Unchanged zinc acetate (zinc (as acetate) 50 mg oral capsule) 1 cap by mouth Three (3) times a day Please take this list to your next doctor s visit. Bring all medications you take, including over the counter medications, herbals and other supplements with you to your doctor s visit. Patients and families are reminded to discard old lists and to update any records with all medication providers or retail pharmacies. Education Materials Dizziness (Uncertain Cause) Dizziness is a common symptom. It may be described as lightheadedness, spinning, or feeling like you are going to faint. Dizziness can have many causes. Be sure to tell the healthcare provider about: All medicines you take, including prescription, [id number], herbs, and supplements Any other symptoms you have Any health problems you are being treated for Any past major health problems you've had, such as a heart attack, balance issues, hearing problems, or blood pressure problems Anything that causes the dizziness to get worse or better Today's exam did not show an exact cause for your dizziness. Other tests may be needed. Follow up with your healthcare provider. Home care Dizziness that occurs with sudden standing may be a sign of mild dehydration. Drink extra fluids for the next few days. If you recently started a new medicine, stopped a medicine, or had the dose of a current medicine changed, talk with the prescribing healthcare provider. Your medicine plan may need adjustment. If dizziness lasts more than a few seconds, sit or lie down until it passes. This may help prevent injury in case you pass out. Get up slowly when you feel better. Don't drive or use power tools or dangerous equipment until you have had no dizziness for at least 48 hours. Follow-up care Follow up with your healthcare provider for further evaluation within the next 7 days or as advised. When to seek medical advice Call your healthcare provider for any of the following: Worsening of symptoms or new symptoms Passing out or seizure Repeated vomiting Headache Palpitations (the sense that your heart is fluttering or beating fast or hard) Shortness of breath Blood in vomit or stool (black or red color) Weakness of an arm or leg or 1 side of the face Vision or hearing changes Trouble walking or speaking Chest, arm, neck, back, or jaw pain [phone] [employer]. [address] [place] [address]. All rights reserved. This information is not intended as a substitute for professional medical care. Always follow yourhealthcare professional's instructions. Additional Information VACCINATE! IT SAVES LIVES! Members of the community who have not yet received the COVID-19 vaccine and would like to receive it can visit one of [facility] vaccine clinics. There are many vaccine clinic locations within the [facility]. For locations and available times, please visit www.gettheshot.coronavirus.[place].gov/. It is important to note that some COVID mobile vaccine clinics are held outdoors and may be canceled in rainy or stormy conditions. To learn more about pediatric vaccinations (ages 5-11), we invite you to visit the [facility] webpage. https://www.[facility].org/pages/[email or web address]-Yhtedvbfgyn-Qgfqfhcxah-Nwbmr-Uxg stions.htmlTo learn more about the COVID-19 vaccine, we invite you to visit the CDC website for a list of frequently asked questions. https://www.cdc.gov/coronavirus/2019-ncov/vaccines/faq.html [facility] Patient Portal Access Instructions: Stay connected with your healthcare team and access your personal medical information anytime with the [facility] Patient Portal. If you would like a full copy of your medical records please contact the [facility] Medical Records Department Sunday through Sunday between 8a.m. and 4:30p.m. Please follow the directions below to access the portal: 1.Access the email account you provided upon registration to the [facility].2.Look for an invitation email from [facility].3.Open the email and access the invitation link: Accept Invitation to [facility]4.Fill in the required sommer to create your account. Sign into www.[employer] with your username and password that you created in the above steps to stay up to date. You can then view a summary of results, a summary of your visits, and the ability to download your summaries to your computer or send the information securely to a physician. Remember that your healthcare information is confidential, so carefully consider who you will allow to register on the [facility] Patient Portal for access to your information. You can also access the [facility] Patient Portal on the [employer]. Simply click on Health Records under [employer] and then click on the [employer] logo. HOW TO SAFELY DISPOSE OF PRESCRIPTION MEDICATIONS Please use one of the following methods to safely dispose of your unused medications. 1.Use a drug disposal kit: the drug disposal pouch allows you to safely discard your old and unuseddrugs. Ask your nurse to give you one when you are discharged.2.Visit a local take-back location: Many local pharmacies and police departments have programs that collect old and unwanted prescriptiondrugs. Call your local pharmacy or go to http://Vestec.RelTel/9A0Cj7m to find one close to you.3.Make use of household items: Use cat litter or old coffee grounds to dispose medications if other options arenot available. Mix your drugs with these household products, seal them in an airtight container andthrow it into the garbage. Call [facility]: [phone] to be sure your drugs can be disposed of in this way. Some medicines may require a different approach.4.Never flush your medications down the toilet. IF YOU HAVE BEEN PRESCRIBED AN OPIOIDS FOR PAIN If you have been prescribed an opioid (such as hydrocodone, oxycodone or morphine), it is critical to understand the possible side effects and risks of opioid pain medications. Even when taken as directed, opioids can have several side effects including: Tolerance, meaning you might need to take more of a medication for the same pain relief. Nausea, vomiting and/or constipation. Sleepiness, dizziness, dry mouth, confusion, depression or itching. Physical dependence, meaning you have withdrawal symptoms when a medication is stopped ? this can develop within a few days. KNOW YOUR RESPONSIBILITIES It is important to know exactly how much and how often to take the opioid pain medications you are prescribed. Never take opioids in higher amounts or more often than prescribed. Do not combine opioids with alcohol or other drugs that cause drowsiness, such as benzodiazepines, also known as benzos,including diazepam and alprazolam, muscle relaxants or sleep aids. Never sell or share prescriptionopioids. This is illegal. Store opioids in a secure place and out of reach of others (including children, family, friends and visitors). The last page(s) of this document has been signed and retained as a CHART COPY Signatures Patient Education Materials Dizziness, Uncertain Cause Medication Leaflets My discharge plan and instructions have been reviewed and explained to me and IHAYDEN PATRICIA M understand my current condition and have read and understand these discharge instructions. I have received a written copy of the plan/instructions. If I have questions, I am aware that I should contact my doctor. 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 COMPARISON: CT head 05/25/2019 HISTORY: ORDERING SYSTEM PROVIDED HISTORY: Reason for Exam: persistent dizziness of years duraiton without relief from med changes, worse looking up. No spinning sensation FINDINGS: INTRACRANIAL STRUCTURES/VENTRICLES: There are multifocal confluent regions of FLAIR/T2 prolongation of the white matter, compatible with moderate chronic ischemic microvascular changes. There is mild diffuse cerebral volume loss. There is 3 mm chronic lacunar infarct at the posterior left frontal deep white matter. At the inferior surface the left tentorium, there is a 4 mm x 3 mm enhancing nodule, nonspecific, which may be compatible with meningioma. Follow-up study in 3 months may be useful to document stability and exclude neoplastic process. 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 There is no acute infarct. No mass effect or midline shift. No evidence of an acute intracranial hemorrhage. The ventricles and sulci are normal in size and configuration. The sellar/suprasellar regions appear unremarkable. The normal signal voids within the major intracranial vessels appear maintained. No abnormal focus of enhancement is seen within the brain. ORBITS: The visualized portion of the orbits demonstrate no acute abnormality. SINUSES: The visualized paranasal sinuses and mastoid air cells demonstrate no acute abnormality. BONES/SOFT TISSUES: The bone marrow signal intensity appears normal. The soft tissues demonstrate no acute abnormality. IMPRESSION: 1. No acute intracranial abnormality. 2. Moderate chronic ischemic microvascular changes. 3. 4 mm enhancing nodule at the inferior surface of the left tentorium, nonspecific, which may be compatible with meningioma. Follow-up study in 3 months may be useful to document stability and exclude neoplastic process. Interpreted by: Elias Armstrong Preliminary Report By: Elias Armstrong Electronically signed By Elias Armstrong Dictated Date: 02/06/2024 3:31:33 PM Prelim Date: 02/06/2024 4:06:44 PM Sign Date: 02/06/2024 4:06:44 PM Ordering Provider: [facility]07-17-2024 Note ORIGINAL HISTORY: Neck trauma COMPARISON: 06 August 2019 TECHNIQUE: 1. Sagittal T1-weighted images. 2. Sagittal T2-weighted and T2*-weighted images. 3. Axial T2-weighted and T2*-weighted images. FINDINGS: There is straightening of the upper cervical lordosis. The individual vertebral bodies are intact. There is disc desiccation and disc space narrowing, mainly at C5-C6 and C6-C7. There is no abnormal signal within the cervical spinal cord. The visualized portion of the cord is unremarkable in appearance. Specific findings by level: C3-C4: There is minimal spondylosis. C4-C5: There is minimal spondylosis. C5-C6: There is mild spondylosis. There is mild uncovertebral hypertrophy. There is mild facet hypertrophy. There is mild stenosis. There is neural foraminal narrowing on the left. C6-C7: There is mild uncovertebral hypertrophy, greater on the left. C7-T1: There is a mild posterior disc bulge. 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 Milder degenerative changes at the remaining levels, without stenosis. Interpreted by: Fabian Del Rio MD Preliminary Report By: Fabian Del Rio MD Electronically signed By Fabian Del Rio MD Dictated Date: 02/06/2024 3:27:54 PM Prelim Date: 02/06/2024 3:30:54 PM Sign Date: 02/06/2024 3:30:54 PM Ordering Provider: [facility]01-09-2024 Note ORIGINAL EXAMINATION: BONE DENSITOMETRY 07/31/2023 1:30 pm TECHNIQUE: A bone density dual x-ray absorptiometry (DEXA) scan was performed of the axial (e.g. hips, spine) and/or appendicular (e.g. radius) skeleton as appropriate. COMPARISON: 06/20/2021 HISTORY: ORDERING SYSTEM PROVIDED HISTORY: Reason for Exam: Osteoporosis Screening FINDINGS: T Score Right Femoral Neck: -0.3 Right Femoral Neck: 0.813 (g/cm2) T Score Right Hip: -0.3 Right Hip: 0.907 (g/cm2) T Score Lumbar Spine: 1.1 Lumbar Spine: 1.166 (g/cmd2) BMD Change from previous Hip: -8.5% BMD Change from previous Lumbar Spine: -1.3% IMPRESSION: Normal bone mineral density by WHO criteria. World Health Organization criteria: (Comparing with young normal sex matched population) - Normal: T-score at or above -1 SD (standard deviation) - Osteopenia: T-score between -1 and -2.5 SD - Osteoporosis: T-score at or below -2.5 SD The NOF recommends that FDA-approved medical therapies be considered in post-menopausal women and men age >/= 50 years with a: * Hip or vertebral fracture, or * T-score of /= 20% for major osteoporotic fractures or * >/= 3% for hip fractures All treatment decisions require clinical judgement and consideration of individual patient factors, including patient preferences, comorbidities, previous drug use, risk factors not captured in the FRAX registered model (e.g., frailty, falls, vitamin D deficiency, increased bone turnover, interval significant decline in bone density) and possible under- or over-estimation of fracture risk by FRAX. Interpreted by: Niall Mobley DO Preliminary Report By: Niall Mobley DO Electronically signed By Niall Mobley DO Dictated Date: 07/31/2023 2:15:57 PM Prelim Date: 07/31/2023 2:17:04 PM Sign Date: 07/31/2023 2:17:04 PM Ordering Provider: [facility]06-28-2023 Note ORIGINAL EXAMINATION: TWO XRAY VIEWS OF THE CHEST01/17/2023 4:12 pm COMPARISON: 07/27/2021 HISTORY: ORDERING SYSTEM PROVIDED HISTORY: Reason for Exam: cough x 4 days; light yellow sputum; hx of asthma; bad air quality! FINDINGS: The heart size is normal.Atherosclerosis seen in the aorta. There is no pulmonary consolidation. Right diaphragmatic eventration noted. There is scarring in the lingula. No pneumothorax or pleural effusion. No aggressive osseous lesions identified.Degenerative changes noted throughout the spine. Prominent costochondral calcifications seen. IMPRESSION: No acute radiographic findings. Interpreted by: Tay Gonzales MD Preliminary Report By: Tay Gonzales MD Electronically signed By Tay Gonzales MD Dictated Date: 01/17/2023 4:12:48 PM Prelim Date: 01/17/2023 4:13:56 PM Sign Date: 01/17/2023 4:13:56 PM Ordering Provider: JED VIDAL [facility]06-28-2023 Note ORIGINAL EXAMINATION: TWO XRAY VIEWS OF THE CHEST01/17/2023 4:12 pm COMPARISON: 07/27/2021 HISTORY: ORDERING SYSTEM PROVIDED HISTORY: Reason for Exam: cough x 4 days; light yellow sputum; hx of asthma; bad air quality! FINDINGS: The heart size is normal.Atherosclerosis seen in the aorta. There is no pulmonary consolidation. Right diaphragmatic eventration noted. There is scarring in the lingula. No pneumothorax or pleural effusion. No aggressive osseous lesions identified.Degenerative changes noted throughout the spine. Prominent costochondral calcifications seen. IMPRESSION: No acute radiographic findings. Interpreted by: Tay Gonzales MD Preliminary Report By: Tay Gonzales MD Electronically signed By Tay Gonzales MD Dictated Date: 01/17/2023 4:12:48 PM Prelim Date: 01/17/2023 4:13:56 PM Sign Date: 01/17/2023 4:13:56 PM [facility] Appointment Date:06/13/2021 01:30:00 PM Scheduled Provider:TRINIDAD HOUSTON Location:[facility] Appointment Type:CV OV Appointment Date:08/24/2021 02:00:00 PM Scheduled Provider:MARCELA CRUZ MD Location:[facility] Appointment Type:[facility] Future Scheduled Tests Laboratory* Complete Blood Count 06/10/20 * Lipid Profile 06/10/20 * Complete Metabolic Panel 06/10/20 [facility] Evaluation + Plan note Future Appointments Appointment Date:08/24/2021 02:00:00 PM Scheduled Provider:MARCELA CRUZ MD Location:[facility] Appointment Type: OV [facility] Evaluation + Plan note Future Appointments Appointment Date:11/30/2021 01:15:00 PM Scheduled Provider:MARCELA CRUZ MD Location:[facility] Appointment Type: OV [facility] Evaluation + Plan note Future Appointments Appointment Date:06/09/2022 02:00:00 PM Scheduled Provider:JAMES LEACH DO Location:[facility] Appointment Type: Wellness Medicare Diagnostic Tests Pending * Vitamin D Level 03/01/22 Future Scheduled Tests Laboratory* Thyroid Stimulating Hormone 12/01/21 * Complete Blood Count 12/01/21 * Lipid Profile 12/01/21 * Complete Metabolic Panel 12/01/21 [facility] evaluation + Plan note Future Appointments Appointment Date:06/09/2022 02:00:00 PM Scheduled Provider:JAMES LEACH DO Location:[facility] Appointment Type: Wellness Medicare Future Scheduled Tests Laboratory* Thyroid Stimulating Hormone 12/01/21 * Complete Blood Count 12/01/21 * Lipid Profile 12/01/21 * Complete Metabolic Panel 12/01/21 [facility] evaluation + Plan note Future Appointments Appointment Date:01/26/2023 03:30:00 PM Scheduled Provider:JAMES LEACH DO Location:[facility] Appointment Type: OV Future Scheduled Tests Laboratory* Basic Metabolic Panel 02/03/23 * Lipid Profile 01/24/23 * Albumin/Creatinine Ratio, Random Urine 12/15/22 [facility] evaluation + Plan note Future Appointments Appointment Date:07/31/2023 01:00:00 PM Scheduled Provider: Location:[facility] Appointment Type:BD Bone Density DEXA Axial Skeleton Appointment Date:01/04/2024 09:00:00 AM Scheduled Provider: Location:[facility] Appointment Type: Nurse Lab Appointment Date:01/11/2024 01:30:00 PM Scheduled Provider:JAMES LEACH DO Location:[facility] Appointment Type: OV Future Scheduled Tests Laboratory* Magnesium Level 01/10/24 * Thyroid Stimulating Hormone 01/10/24 * Free T4 01/10/24 * Vitamin B12 Level 01/10/24 * A1C Hemoglobin 01/10/24 * Complete Blood Count 01/10/24 * Lipid Profile 01/10/24 * Albumin/Creatinine Ratio, Random Urine 07/20/23 * Albumin/Creatinine Ratio, Random Urine 01/10/24 * Vitamin D Level 01/10/24 * Complete Metabolic Panel 01/10/24 Radiology* BD Bone Density DEXA Axial Skeleton 07/31/23 [facility] evaluation + Plan note Future Appointments Appointment Date:01/04/2024 09:00:00 AM Scheduled Provider: Location:[facility] NULL Appointment Type:PC Nurse Lab Appointment Date:01/11/2024 01:30:00 PM Scheduled Provider:JAMES LEACH DO Location:[facility] Appointment Type:PC OV Future Scheduled Tests Laboratory* Magnesium Level 01/10/24 * Thyroid Stimulating Hormone 01/10/24 * Free T4 01/10/24 * Vitamin B12 Level 01/10/24 * A1C Hemoglobin 01/10/24 * Complete Blood Count 01/10/24 * Lipid Profile 01/10/24 * Albumin/Creatinine Ratio, Random Urine 07/20/23 * Albumin/Creatinine Ratio, Random Urine 01/10/24 * Vitamin D Level 01/10/24 * Complete Metabolic Panel 01/10/24 [facility] [employer] + Plan note Future Appointments Appointment Date:01/11/2024 01:30:00 PM Scheduled Provider:JAMES LEACH DO Location:[facility] Appointment Type:PC OV Appointment Date:02/06/2024 11:45:00 AM Scheduled Provider: Location:[facility] NULL Appointment Type:CV OV Future Scheduled Tests Laboratory* Albumin/Creatinine Ratio, Random Urine 07/20/23 [facility] Evaluation + Plan note Future Appointments Appointment Date:02/06/2024 11:45:00 AM Scheduled Provider: Location:[facility] Appointment Type:CV OV Appointment Date:02/06/2024 01:15:00 PM Scheduled Provider: Location:[facility] Appointment Type:MRI Spine Cervical w/o Contrast Appointment Date:02/06/2024 02:00:00 PM Scheduled Provider: Location:[facility] Appointment Type:MRI Brain w/ + w/o Contrast Appointment Date:02/12/2024 10:15:00 AM Scheduled Provider:JAMES LEACH DO Location:[facility] Appointment Type:PC OV Appointment Date:04/29/2024 11:00:00 AM Scheduled Provider: Location:[facility] Appointment Type:PC Nurse Lab Appointment Date:05/06/2024 12:30:00 PM Scheduled Provider:JAMES LEACH DO Location:[facility] Appointment Type:PC OV Future Scheduled Tests Laboratory* Lipid Profile 01/11/24 * Albumin/Creatinine Ratio, Random Urine 07/20/23 Radiology* MRI Brain w/ + w/o Contrast 02/06/24 * MRI Spine Cervical w/o Contrast 02/06/24 [facility] [employer] + Plan note Future Appointments Appointment Date:02/12/2024 10:15:00 AM Scheduled Provider:JAMES LEACH DO Location:[facility] Appointment Type:PC OV Appointment Date:04/29/2024 11:00:00 AM Scheduled Provider: Location:[facility] Appointment Type:PC Nurse Lab Appointment Date:05/06/2024 12:30:00 PM Scheduled Provider:JAMES LEACH DO Location:[facility] Appointment Type:PC OV Future Scheduled Tests Laboratory* Lipid Profile 01/11/24 * Albumin/Creatinine Ratio, Random Urine 07/20/23 [facility] Evaluation + Plan note Future Appointments Appointment Date:03/04/2024 03:45:00 PM Scheduled Provider: Location:[facility] Appointment Type:CV OV Appointment Date:03/25/2024 11:30:00 AM Scheduled Provider:JAMES LEACH DO Location:[facility] Appointment Type:PC OV Follow Up Appointment Date:04/29/2024 11:00:00 AM Scheduled Provider: Location:[facility] Appointment Type:PC Nurse Lab Appointment Date:05/06/2024 12:30:00 PM Scheduled Provider:JAMES LEACH DO Location:[facility] Appointment Type:PC OV Future Scheduled Tests Laboratory* Lipid Profile 01/11/24 * Lipid Profile 02/12/24 * Albumin/Creatinine Ratio, Random Urine 07/20/23 * Complete Metabolic Panel 02/12/24 Radiology* MRI Brain w/ + w/o Contrast 02/12/24 [facility] evaluation + Plan note Future Appointments Appointment Date:03/04/2024 03:45:00 PM Scheduled Provider: Location:[facility] Appointment Type:CV OV Appointment Date:03/06/2024 08:45:00 AM Scheduled Provider: Location:[facility] Appointment Type:MRI Brain w/ + w/o Contrast Appointment Date:03/25/2024 11:30:00 AM Scheduled Provider:JAMES LEACH DO Location:[facility] Appointment Type:PC OV Follow Up Appointment Date:04/29/2024 11:00:00 AM Scheduled Provider: Location:[facility] Appointment Type:PC Nurse Lab Appointment Date:05/06/2024 12:30:00 PM Scheduled Provider:JAMES LEACH DO Location:[facility] Appointment Type:PC OV Future Scheduled Tests Laboratory* Lipid Profile 01/11/24 * Lipid Profile 02/12/24 * Albumin/Creatinine Ratio, Random Urine 07/20/23 * Complete Metabolic Panel 02/12/24 Radiology* MRI Brain w/ + w/o Contrast 03/06/24 [facility] Evaluation + Plan note Future Appointments Appointment Date:04/28/2024 01:30:00 PM Scheduled Provider: Location:[facility] Appointment Type:[facility] Appointment Date:04/29/2024 11:00:00 AM Scheduled Provider: Location:[facility] Appointment Type:PC Nurse Lab Appointment Date:05/01/2024 11:45:00 AM Scheduled Provider: Location:[facility] Appointment Type:MRI Brain w/ + w/o Contrast Appointment Date:05/06/2024 12:30:00 PM Scheduled Provider:JAMES LEACH DO Location:[facility] Appointment Type:PC OV Future Scheduled Tests Laboratory* Lipid Profile 01/11/24 * Lipid Profile 02/12/24 * Albumin/Creatinine Ratio, Random Urine 07/20/23 * Complete Metabolic Panel 02/12/24 Radiology* MRI Brain w/ + w/o Contrast 05/01/24 * XR Knee 3 Views Left 04/24/24 [facility] Evaluation + Plan note Future Appointments Appointment Date:05/01/2024 11:45:00 AM Scheduled Provider: Location:[facility] Appointment Type:MRI Brain w/ + w/o Contrast Appointment Date:05/06/2024 12:30:00 PM Scheduled Provider:JAMES LEACH DO Location:[facility] Appointment Type:PC OV Future Scheduled Tests Laboratory* Lipid Profile 01/11/24 * Albumin/Creatinine Ratio, Random Urine 07/20/23 Radiology* MRI Brain w/ + w/o Contrast 05/01/24 * XR Knee 3 Views Left 04/24/24 [facility] Evaluation + Plan note Future Appointments Appointment Date:05/06/2024 12:30:00 PM Scheduled Provider:JAMES LEACH DO Location:[facility] Appointment Type:PC OV Future Scheduled Tests Laboratory* Lipid Profile 01/11/24 * Albumin/Creatinine Ratio, Random Urine 07/20/23 Radiology* XR Knee 3 Views Left 04/24/24 [facility] Evaluation + Plan note Future Appointments Appointment Date:05/14/2024 02:30:00 PM Scheduled Provider:SHAUNA OLOMIS Location:[facility] Appointment Type: OV Hospital Follow-Up Future Scheduled Tests Laboratory* Lipid Profile 01/11/24 Radiology* XR Knee 3 Views Left 04/24/24 [facility] Evaluation + Plan note Future Appointments Appointment Date:09/09/2024 01:30:00 PM Scheduled Provider:JAMES LEACH DO Location:[facility] Appointment Type: OV Future Scheduled Tests Radiology* XR Knee 3 Views Left 04/24/24 [facility] Evaluation noteNo assessment information available [facility] Work Phone: Hospital course Narrative No data available for this section [facility] Hospital Discharge instructions No data available for this section [facility] Progress note No data available for this section [facility] Summary Purpose Family History No Family History Records FoundNo Family History Records Found No data available for this section No data available for this section No data available for this section No data available for this section No data available for this section No data available for this section No data available for this section No Family History Records Found No data available for this section No data available for this section No data available for this section No data available for this section No data available for this section No data available for this section No Family History Records Found No data available for this section No Family History Records FoundNo Family History Records Found Advance Directives No Advanced Directives Records Found Advance Directive Response Recorded Date/ Time Living Will Yes July 18 12:14am Do you have a Healthcare Pow er of Data Entry Manager? Yes July 18, 2024 12:14am Name of Medical Power of Data Entry Manager [email or web address] [email or web address] July 18, 2024 12:14am Living Will No August 13 12:15am Do you have a Healthcare Pow er of Data Entry Manager? No August 13, 2024 12:15am Living Will No August 28 11:40am Do you have a Healthcare Pow er of Data Entry Manager? No August 28, 2024 11:40am Living Will No August 29 7:59pm Do you have a Healthcare Pow er of Data Entry Manager? No August 29, 2024 7:59pm Living Will No July 23 12:39am Do you have a Healthcare Pow er of Data Entry Manager? No July 23, 2024 12:39am Living Will Yes September 18 10:55am Do you have a Healthcare Pow er of Data Entry Manager? Yes September 18, 2024 10:55am Name of Medical Power of Data Entry Manager [email or web address] September 18, 2024 10:55am Living Will Yes November 10, 2024 6:24pm Do you have a Healthcare Pow er of Data Entry Manager? Yes November 10, 2024 6:24pm Name of Medical Power of Data Entry Manager . November 10, 2024 6:24pm Chief Complaint and Reason for Visit Chief Complaint DYSPHAGIA Chief Complaint DYSPHAGIA DYSPHONIA,VOCAL CORD/RX HERE DYSPHONIA. RX HERE Chief Complaint DYSPHONIA,VOCAL CORD /RX HERE Chief Complaint Admit Date ACUTE INFLUENZA A RESPIRATORY INSUFFICIE NCY & NEAR July 17, 2024 10:28pm ACUTE INFLUENZA A RESPIRATORY INSUFFICIE NCY & NEAR July 18, 2024 6:43am ACUTE INFLUENZA A RESPIRATORY INSUFFICIE NCY & NEAR July 19, 2024 6:26am ACUTE INFLUENZA A RESPIRATORY INSUFFICIE NCY & NEAR July 20, 2024 6:24am sob July 22, 2024 11:38pm PNA, HYPOXIA August 12, 2024 9 :40pm PNA, HYPOXIA August 13, 2024 2 :05pm PNA, HYPOXIA August 14, 2024 1 1:06am PNA, HYPOXIA August 15, 2024 1 :11pm CP August 28, 2024 1 0:34am Shortness of breath August 29, 2024 4 :24pm FAILURE TO THRIVE August 30, 2024 7 :39am FAILURE TO THRIVE August 30, 2024 1 2:14pm FAILURE TO THRIVE August 31, 2024 7 :33am FAILURE TO THRIVE September 01, 2024 7:23pm FAILURE TO THRIVE September 02, 2024 4:59pm LABWORK September 03, 2024 5:00am chest pain September 18, 2024 9:47am CHEST PAIN, FAILURE TO THRIVE October 9:12pm Reason for Visit Admit Date Acute asthma exacerbation July 17, 2024 10:28pm Chronic left hip pain July 17 10:28pm Influenza A July 17, 2024 10:28pm Obesity (BMI 30.0-34.9) July 17, 2 024 10:28pm SHIRA (obstructive sleep apnea) June 232023 10:28pm Near syncope July 17, 2024 10:28pm Respiratory insufficiency July 17, 2024 10:28pm Generalized weakness August 12, 2024 9:40pm Hypoxia August 12, 2024 9 :40pm Pneumonia August 12, 2024 9 :40pm Dementia August 30, 2024 1 2:14pm Chest pain August 30, 2024 1 2:14pm Additional Source Comments INFORMATION SOURCE (unrecogn ized section and content) DATE CREATED AUTHOR 01/16/2018 [facility] DATE CREATED AUTHOR AUTHOR'S ORGANIZ ATION 08/28/2019 [facility] DATE CREATED AUTHOR AUTHOR'S ORGANIZ ATION 03/28/2024 [facility] ([place]) DATE CREATED AUTHOR AUTHOR'S ORGANIZ ATION 05/29/2024 [facility] DATE CREATED AUTHOR AUTHOR'S ORGANIZ ATION 08/15/2024 [facility] DATE CREATED AUTHOR AUTHOR'S ORGANIZ ATION 12/29/2024 [facility] Goals (unrecognized section and content) Goals may be documented in a n alternate section Care Team (unrecognized sect ion and content) Care Team Personnel Name: JAMES LEACH DO Position: P4 Physician - Primary Care Member Role: Primary Care Physician Address: Address: [address] [place] [address] Care Team Related Persons Name: ASHA QUINTERO Care Team Personnel Name: JAMES LEACH DO Position: P4 Physician - Primary Care Member Role: Primary Care Physician Address: Address: [address] [place] [address] Care Team Related Persons Name: ASHA QUINTERO Care Team Personnel Name: JAMES LEACH DO Position: P4 Physician - Primary Care Member Role: Primary Care Physician Address: Address: [address] [place] [address] Care Team Related Persons Name: ASHA QUINTERO Patient Care team informatio n (unrecognized section and content) Team Status: Active Member Role Status Dates Dr. James Leach DO Primary Care Provider Active Team Status: Inactive Member Role Status Dates Dr. Urbano Mir DO Referring Provider Active Start : July 17, 2024 End: July 20, 2024 Dr. Urbano Mir DO Emergency Provider Active Start : July 17, 2024 End: July 20, 2024 Dr. Niall Leong DO Admit Provider Active Start: July 17, 2024 End: July 20, 2024 Dr. Niall Leong DO Other Provider Active Start: July 17, 2024 End: July 20, 2024 Dr. Jennifer Jon MD Attending Provider Active Start: July 17, 2024 End: July 20, 2024 Dr. James Leach DO Primary Care Provider Active Start: July 17, 2024 End: July 20, 2024 Team Status: Active Member Role Status Dates Dr. Urbano Mir DO Emergency Provider Active Start : July 18, 2024 Dr. James FOLEY MD Primary Care Provider Active Start: July 18, 2024 Dr. Niall Leong DO Admit Provider Active Start: July 18, 2024 Dr. Niall Leong DO Other Provider Active Start: July 18, 2024 Dr. Jennifer Jon MD Attending Provider Active Start: July 18, 2024 Dr. Jennifer Jon MD Other Provider Active St art: July 18, 2024 Team Status: Active Member Role Status Dates Dr. James FOLEY MD Primary Care Provider Active Start: July 18, 2024 Dr. Rayray Oliveira MD Attending Provider Active S tart: July 18, 2024 Team Status: Active Member Role Status Dates Dr. Urbano Mir DO Emergency Provider Active Start : July 19, 2024 Dr. James FOLEY MD Primary Care Provider Active Start: July 19, 2024 Dr. Niall Leong DO Admit Provider Active Start: July 19, 2024 Dr. Niall Leong DO Other Provider Active Start: July 19, 2024 Dr. Jennifer Jon MD Attending Provider Active Start: July 19, 2024 Dr. Jennifer Jon MD Other Provider Active St art: July 19, 2024 Team Status: Active Member Role Status Dates Dr. Urbano Mir DO Emergency Provider Active Start : July 20, 2024 Dr. James FOLEY MD Primary Care Provider Active Start: July 20, 2024 Dr. Niall Leong DO Admit Provider Active Start: July 20, 2024 Dr. Niall Leong DO Other Provider Active Start: July 20, 2024 Dr. Jennifer Jon MD Attending Provider Active Start: July 20, 2024 Dr. Jennifer Jon MD Other Provider Active St art: July 20, 2024 Team Status: Inactive Member Role Status Dates Dr. James Leach DO Primary Care Provider Active Start: July 22, 2024 End: July 23, 2024 Dr. Umair Cates DO Attending Provider Active Start: July 22, 2024 End: July 23, 2024 Dr. Umair Cates DO Emergency Provider Active Start: July 22, 2024 End: July 23, 2024 Team Status: Inactive Member Role Status Dates Dr. James Leach DO Primary Care Provider Active Start: August 12, 2024 End: August 15, 2024 Dr. Tomer Lopez DO Emergency Provider Active Start: August 12, 2024 End: August 15, 2024 Dr. Jennifer Jon MD Admit Provider Active St art: August 12, 2024 End: August 15, 2024 Dr. Jennifer Jon MD Other Provider Active St art: August 12, 2024 End: August 15, 2024 Dr. Alba Jurado MD Attending Provider Active Start: August 12, 2024 End: August 15, 2024 Team Status: Active Member Role Status Dates Dr. James Leach DO Primary Care Provider Active Start: August 13, 2024 Dr. Tomer Lopez DO Emergency Provider Active Start: August 13, 2024 Dr. Jennifer Jon MD Admit Provider Active St art: August 13, 2024 Dr. Jennifer Jon MD Other Provider Active St art: August 13, 2024 Dr. Alba Jurado MD Attending Provider Active Start: August 13, 2024 Dr. Alba Jurado MD Other Provider Active St art: August 13, 2024 Team Status: Active Member Role Status Dates Dr. James Leach DO Primary Care Provider Active Start: August 14, 2024 Dr. Tomer Lopez DO Emergency Provider Active Start: August 14, 2024 Dr. Jennifer Jon MD Admit Provider Active St art: August 14, 2024 Dr. Jennifer Jon MD Other Provider Active St art: August 14, 2024 Dr. Alba Jurado MD Attending Provider Active Start: August 14, 2024 Dr. Alba Jurado MD Other Provider Active St art: August 14, 2024 Team Status: Active Member Role Status Dates Dr. James Leach DO Primary Care Provider Active Start: August 15, 2024 Dr. Tomer Lopez DO Emergency Provider Active Start: August 15, 2024 Dr. Jennifer Jon MD Admit Provider Active St art: August 15, 2024 Dr. Jennifer Jon MD Other Provider Active St art: August 15, 2024 Dr. Alba Jurado MD Attending Provider Active Start: August 15, 2024 Dr. Alba Jurado MD Other Provider Active St art: August 15, 2024 Team Status: Inactive Member Role Status Dates Dr. James Leach DO Primary Care Provider Active Start: August 28, 2024 End: August 28, 2024 Dr. Violeta Rodríguez DO Attending Provider Active Start: August 28, 2024 End: August 28, 2024 Dr. Violeta Rodríguez DO Emergency Provider Active Start: August 28, 2024 End: August 28, 2024 Team Status: Active Member Role Status Dates Dr. James Leach DO Primary Care Provider Active Start: August 29, 2024 Dr. Violeta Rodríguez DO Emergency Provider Active Start: August 29, 2024 Dr. Betty Mike MD Attending Provider Active Start: August 29, 2024 Team Status: Active Member Role Status Dates Dr. James Leach DO Primary Care Provider Active Start: August 30, 2024 Dr. Violeta Rodríguez DO Emergency Provider Active Start: August 30, 2024 Dr. Betty Mike MD Admit Provider Active Star t: August 30, 2024 Dr. Betty Mike MD Other Provider Active Star t: August 30, 2024 Dr. Niall Loco MD Attending Provider Active Start: August 30, 2024 Dr. Niall Loco MD Other Provider Active Star t: August 30, 2024 Team Status: Inactive Member Role Status Dates Dr. James Leach DO Primary Care Provider Active Start: August 30, 2024 End: September 03, 2024 Dr. Violeta Rodríguez DO Emergency Provider Active Start: August 30, 2024 End: September 03, 2024 Dr. Betty Mike MD Admit Provider Active Star t: August 30, 2024 End: September 03, 2024 Dr. Betty Mike MD Other Provider Active Star t: August 30, 2024 End: September 03, 2024 Dr. Suman Choi DO Attending Provider Active Start: August 30, 2024 End: September 03, 2024 Dr. Niall Loco MD Other Provider Active Star t: August 30, 2024 End: September 03, 2024 Team Status: Active Member Role Status Dates Dr. James Leach DO Primary Care Provider Active Start: August 31, 2024 Dr. Violeta Rodríguez DO Emergency Provider Active Start: August 31, 2024 Dr. Betty Mike MD Admit Provider Active Star t: August 31, 2024 Dr. Betty Mike MD Other Provider Active Star t: August 31, 2024 Dr. Niall Loco MD Attending Provider Active Start: August 31, 2024 Dr. Niall Loco MD Other Provider Active Star t: August 31, 2024 Team Status: Active Member Role Status Dates Dr. James Leach DO Primary Care Provider Active Start: September 01, 2024 Dr. Violeta Rodríguez DO Emergency Provider Active Start: September 01, 2024 Dr. Betty Mike MD Admit Provider Active Star t: September 01, 2024 Dr. Betty Mike MD Other Provider Active Star t: September 01, 2024 Dr. Suman Choi DO Attending Provider Active Start: September 01, 2024 Dr. Suman Choi DO Other Provider Active S tart: September 01, 2024 Dr. Niall Loco MD Other Provider Active Star t: September 01, 2024 Team Status: Active Member Role Status Dates Dr. James Leach DO Primary Care Provider Active Start: September 02, 2024 Dr. Violeta Rodríguez DO Emergency Provider Active Start: September 02, 2024 Dr. Betty Mike MD Admit Provider Active Star t: September 02, 2024 Dr. Betty Mike MD Other Provider Active Star t: September 02, 2024 Dr. Suman Choi DO Attending Provider Active Start: September 02, 2024 Dr. Suman Choi DO Other Provider Active S tart: September 02, 2024 Dr. Niall Loco MD Other Provider Active Star t: September 02, 2024 Team Status: Active Member Role Status Dates Dr. Jamse Leach DO Primary Care Provider Active Start: September 03, 2024 Dr. James FOLEY MD Attending Provider Active Start: September 03, 2024 Team Status: Inactive Member Role Status Dates Dr. James Leach DO Primary Care Provider Active Start: September 18, 2024 End: September 18, 2024 Abundio Tyson MD Attending Provider Active Star t: September 18, 2024 End: September 18, 2024 Abundio Tyson MD Emergency Provider Active Star t: September 18, 2024 End: September 18, 2024 Team Status: Active Member Role Status Dates Dr. James Leach DO Primary Care Provider Active Start: November 10, 2024 Dr. Papo Melara MD Emergency Provider Active Sta rt: November 10, 2024 Dr. Niall Leong DO Admit Provider Active Start: November 10, 2024 Dr. Niall Leong DO Attending Provider Active Start: November 10, 2024 FOR RECORDS PERTAINING TO PATIENTS WHO ARE OR HAVE BEEN ENROLLED IN A CHEMICAL DEPENDENCY/SUBSTANCEABUSE PROGRAM, SOME INFORMATION MAY BE OMITTED. This clinical summary was aggregated from multiple sources. Caution should be exercised in using it in the provision of clinical care. This summary normalizes information from multiple sources, and as a consequence, information in this document may materially change the coding, format and clinical context of patient data. In addition, data may be omitted in some cases. CLINICAL DECISIONS SHOULD BE BASED ON THE PRIMARY CLINICAL RECORDS. [facility] [employer] provides no warranty or guarantee of the accuracy or completeness of information in this document.
--- OUTSIDE RECORDS SUMMARY | 2025-01-02 04:00 | XMS RPT_ITS | CCD ---
Author Organization [facility] Care Team Providers Care Mail Caller Name Role Phone MARCELA CRUZ Unavailable Unavailable MARCELA CRUZ Unavailable Unavailable MARCELA CRUZ Unavailable Unavailable MARCELA CRUZ Unavailable Unavailable MARCELA CRUZ Unavailable Unavailable MARCELA CRUZ Unavailable Unavailable MARCELA CRUZ MD Primary Care Physician [phone] JAMES LEACH DO Primary Care Physician HANY JEFFRIES JAMES E Attending Unavailable HANY DO, JAMES E Primary Care Unavailable ELACH DO, JAMES E Attending Unavailable LEACH DO, [...] DO, JAMES E Primary Care Unavailable MOISES BLOCKMASON-COMMUNICATIONS TECH, 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 [...] Unavailable Leach, James Primary Care Unavailable Roxanne, Mclain Attending Unavailable Roxanne, Mclain Referring Unavailable Leach, James Primary Care Unavailable Abundio Tyson Attending Unavailable Leach, James Primary Care Unavailable Betty Mike Attending Unavailable Niall Loco Attending Unavailable Betty Mike Consulting Unavailable Betty Mike Admitting Unavailable Niall Loco Consulting Unavailable Hany FOLEY, James Primary Care Unavailable Niall Leong Attending Unavailable Urbano Mir Referring Unavailable Niall Leong Admitting Unavailable Niall Leong Consulting Unavailable Danay Jennifer L Consulting Unavailable Jennifer Jon L Attending Unavailable Leach, James Primary Care Unavailable Uamir Cates Attending Unavailable Leach, James Primary Care Unavailable Niall Leong Consulting Unavailable Courntey Kumari Attending Unavailable Niall Leong Admitting Unavailable [...] (2 sources) Aspirin; Translations: [aspirin] Drug Allergy [facility] Cephalosporins (antibiotic) (2 sources) Cefaclor; Translations: [cefaclor] Drug Allergy [facility] Chlorzoxazone (2 sources) Chlorzoxazone; Translations: [chlorzoxazone] Drug Allergy [facility] Doxycycline (2 sources) Doxycycline; Translations: [doxycycline] Drug Allergy [facility] Macrolides (antibiotic) (2 sources) Erythromycin; Translations: [erythromycin] Drug Allergy [facility] NSAIDs (2 sources) Naproxen; Translations: [naproxen] Drug Allergy [facility] Opioid Agonists (2 sources) Codeine; Translations: [codeine] Drug Allergy [facility] Orphenadrine (2 sources) Orphenadrine; Translations: [orphenadrine] Drug Allergy [facility] Oxytetracycline / Polymyxin B (2 sources) Oxytetracycline / Polymyxin B; Translations: [oxytetracycline-po lymyxin B ophthalmic] Drug Allergy [facility] Penicillins (antibiotic) (2 sources) Penicillin; Translations: [penicillin] Drug Allergy [facility] Sulfonamides (antibiotic) (2 sources) Sulfonamide; Translations: [sulfa drugs] Drug Allergy [facility] Testosterone (2 sources) Testosterone; Translations: [testosterone] Drug Allergy [facility] (20 sources) Aspirin; Translations: [aspirin] Drug Allergy [address] [place] [address] (20 sources) Cefaclor; Translations: [cefaclor] Drug Allergy [address] [place] [address] (20 sources) Chlorzoxazone; Translations: [chlorzoxazone] Drug Allergy [address] [place] [address] (20 sources) Codeine; Translations: [codeine] Drug Allergy [facility] (20 sources) Doxycycline; Translations: [doxycycline] Drug Allergy [facility] (20 sources) Erythromycin; Translations: [erythromycin] Drug Allergy 5 [facility] (20 sources) Naproxen; Translations: [naproxen] Drug Allergy 5 [facility] (20 sources) Orphenadrine; Translations: [orphenadrine] Drug Allergy 5 [facility] (20 sources) Oxytetracycline / Polymyxin B; Translations: [oxytetracycline-po lymyxin B ophthalmic] Drug Allergy [facility] (20 sources) Penicillin; Translations: [penicillin] Drug Allergy [facility] (20 sources) Seafood Food allergy 9 [facility] (20 sources) Sulfonamides (Antibiotic); Translations: [sulfa drugs] Drug allergy [facility] (20 sources) Testosterone; Translations: [testosterone] Drug Allergy 5 [facility] (1 source) guanFACINE Drug Allergy [facility] (1 source) Oxytetracycline Drug Allergy 5 [facility] (1 source) Penicillins Allergy to substance 5 [facility] (1 source) Piroxicam Drug Allergy 5 [facility] (1 source) Sulfonamides (Antibiotic) Allergy to substance 5 [facility] (1 source) Aspirin Drug Allergy 5 [facility] (1 source) Cefaclor Drug Allergy 5 [facility] (1 source) Chlorzoxazone Drug Allergy 5 [facility] (1 source) Codeine Drug Allergy 5 [facility] (1 source) guanFACINE Drug Allergy 5 [facility] (1 source) Naproxen Drug Allergy 5 [facility] (1 source) Orphenadrine Drug Allergy 5 [facility] (1 source) Oxytetracycline Drug Allergy 5 [facility] (1 source) Penicillins Drug allergy (disorder) 5 [facility] (1 source) Piroxicam Drug Allergy 5 [facility] (1 source) Sulfonamides (Antibiotic) Drug allergy (disorder) 5 [facility] (1 source) Testosterone Drug Allergy 5 [facility] (1 source) erythromycin base Drug allergy (disorder) 5 [facility] Medications Current Medications Medication Drug [...] refills., # 8.5 gram(s), 0 Refill(s), Pharmacy: [facility], 152, cm, 01/05/20 15:49:00 EDT, [...] Daily, # 180 EA, 0 Refill(s), Pharmacy: [facility], 149.5, cm, 02/12/24 10:20:00 EDT, Height, [...] tab(s), 3 Refill(s), Pharmacy: [facility] ([facility] 151, cm, 11/24/22 11:26:00 [...] tab(s), 1 Refill(s), Pharmacy: [facility] ([facility] 151, cm, 11/03/22 14:09:00 EDT, Height, kg, 11/03/22 14:09:00 EDT, Dosing Weight Start Date: 11/03/22 Status: Ordered Start: 08-23-2020 take 1 tablet by radha th once daily furosemide 20 mg oral tablet See Instructions, TAKE 1 TABLET BY MOUTH DAILY, # 90 tab(s), 3 Refill(s), Pharmacy: [facility], 152, cm, 01/05/20 15:49:00 EDT, [...] DIZZINESS, # 60 tab(s), 0 Refill(s), Pharmacy: [facility], 152, cm, 01/05/20 15:49:00 EDT, Height, [...] DAILY, # 90 tab(s), 3 Refill(s), Pharmacy: [facility], 151, cm, 08/24/21 13:53:00 EST, Height, kg, 08/24/21 13:53:00 EST, Dosing Weight Start Date: 08/24/21 Status: Ordered Start: 07-03-2021 take 0.5 tablet by m outh twice daily Metoprolol Succinate ER 50 mg oral TABLET extended release See Instructions, TAKE ONE-HALF TABLET BY MOUTH TWICE DAILY, # 90 tab(s), 3 Refill(s), Pharmacy: [facility], 151, cm, 06/13/21 13:53:00 EST, Height, kg, 06/13/21 13:53:00 EST, Dosing Weight Start Date: 07/03/21 Status: Ordered Start: 09-20-2020 take 0.5 tablet by m outh twice daily Metoprolol Succinate ER 50 mg oral TABLET extended release See Instructions, TAKE ONE-HALF TABLET BY MOUTH TWICE DAILY, # 30 tab(s), 11 Refill(s), Pharmacy: [facility], 152, cm, 01/05/20 15:49:00 EDT, [...] HOURS, # 90 patch(es), 1 Refill(s), [facility], 149.5, cm, 02/12/24 10:20:00 EDT, Height, [...] patch(es), 2 Refill(s), Pharmacy: [facility] ([facility]), 148, cm, 02/16/23 16:25:00 EDT, Height, kg, 02/16/23 16:25:00 EDT, Dosing Weight Start Date: 03/20/23 Status: Ordered Start: 05-18-2022 nitroglycerin 0.2 mg/hr transdermal film, extended release Dose = 1 patch(es), Topical, qDay, LEAVE ON FOR 12 TO 14 HOURS THEN REMOVE FOR A NITRATE-FREE INTERVAL OF 10 TO 12 HOURS, # 90 patch(es), 3 Refill(s), Pharmacy: [facility] ([facility]), 151, cm, 03/01/22 13:50:00 EDT, Height, kg, 0... Start Date: 05/18/22 Status: Ordered Start: 06-13-2021 apply 1 dose transde rmal route once daily nitroglycerin 0.2 mg/hr transdermal film, extended release Dose = 1 patch(es), Transdermal, qDay, # 90 patch(es), 3 Refill(s), Pharmacy: [facility], 151, cm, 06/13/21 13:53:00 EST, [...] tab(s), 1 Refill(s), Pharmacy: [facility] ([facility]), 148, cm, 02/16/23 16:25:00 EDT, Height, kg, 02/16/23 16:25:00 EDT, Dosing Weight Start Date: 03/13/23 Status: Ordered Start: 11-03-2022 take 1 tablet by [facility] once daily rosuvastatin 5 mg oral tablet See Instructions, TAKE 1 TABLET EVERY DAY, # 90 tab(s), 1 Refill(s), Pharmacy: [facility] ([facility] 151, cm, 11/03/22 14:09:00 EDT, Height, kg, 11/03/22 14:09:00 EDT, Dosing Weight Start Date: 11/03/22 Status: Ordered Start: 07-03-2021 take 1 tablet by [facility] once daily rosuvastatin 5 mg oral tablet See Instructions, TAKE 1 TABLET EVERY DAY, # 90 tab(s), 2 Refill(s), Pharmacy: [facility], 151, cm, 06/13/21 13:53:00 EST, Height, kg, 06/13/21 13:53:00 EST, Dosing Weight Start Date: 07/03/21 Status: Ordered Start: 12-08-2020 take 1 tablet by [facility] once daily rosuvastatin 5 mg oral tablet See Instructions, TAKE 1 TABLET EVERY DAY, # 90 tab(s), 2 Refill(s), [facility], 152, cm, 01/05/20 15:49:00 EDT, [...] DAILY, # 180 tab(s), 0 Refill(s), [facility]: [facility]), Degenerative polyarthritis, 151, cm, 12/01/21 14:30:00 EDT, Height, 94, kg, 12/01/21 14:30:00 EDT, Dosing Weight Start Date: 12/28/21 Status: Ordered Start: 06-07-2021 take 1 tablet by radha th twice daily traMADol 50 mg oral tablet See Instructions, TAKE 1 TABLET TWICE DAILY, # 180 tab(s), 0 Refill(s), Pharm[facility]: [facility], Degenerative polyarthritis, 151.5, cm, 06/07/21 [...] 100 gram(s), 0 Refill(s), [facility]: [id number], Gel, 148, cm, 02/16/23 16:25:00 EDT, Height, [...] cap(s), 1 Refill(s), Pharmacy: [facility] ([facility]), Dizziness Meniere disease, 148, cm, 02/16/23 16:25:00 EDT, Height, kg, 02/16/23 16:25:00 EDT, Dosing Weight Start Date: 03/13/23 Status: Ordered Start: 12-15-2022 take 1 capsule by mouth once daily hydrochlorothiazide-triamterene 25 mg-37 .5 mg oral capsule Dose = 1 cap(s), Oral, Daily, # 30 cap(s), 2 Refill(s), Pharmacy: [facility] ([facility] ), Dizziness Meniere disease, 151, [...] tab(s), 0 Refill(s), 01/24/23 15:22:00 EDT, Pharmacy: [facility] #[id number], Asthma exacerbation, 150, cm, 01/17/23 14:55:00 EDT, Height Start Date: 01/17/23 Stop Date: 01/24/23 Status: Ordered Problems Active Problems Problem Classification Problem Date Documented Date Episodic/Chronic Administrative/social admission (3 sources) 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, [address] Calcium [Mass/Vol] 9.6 mg/dL Normal 7.6-11.0 [facility] Comment on above: Performed By: #### L 100.0500, L500.4100, L500.2500 ####[facility] [address] [place], [address] Chloride [Moles/Vol] 106 mmol/L Normal 98-108 [facility] Comment on above: Performed By: #### L 100.0500, L500.4100, L500.2500 ####[facility] [address] [place], [address] CO2 [Moles/Vol] 22.9 mmol/L Normal 21.0-32.0 [facility] Comment on above: Performed By: #### L 100.0500, L500.4100, L500.2500 ####[facility] [address] [place], [address] Creatinine [Mass/Vol] 0.82 mg/dL Normal 0.70-1.20 [facility] Comment on above: Performed By: #### L 100.0500, L500.4100, L500.2500 ####[facility] [address] [place], [address] GAP 10 Normal 5-15 [facility] Comment on above: Performed By: #### L 100.0500, L500.4100, L500.2500 ####[facility] [address] [place], [address] GFR/1.73 sq M.predicted among non-blacks MDRD (S/P/Bld) [Vol rate/Area] 71 mL/min/{1.73_m2} Normal >60 [facility] Comment on above: Result Comment: mL/m in/1.73m2 CKD-EPI Creatinine Equation (2020) Performed By: #### L 100.0500, L500.4100, L500.2500 ####[facility] [address] [place], [address] Glucose [Mass/Vol] 109 mg/dL High 70-99 [facility] Comment on above: Performed By: #### L 100.0500, L500.4100, L500.2500 ####[facility] [address] [place], [address] Potassium [Moles/Vol] 3.1 mmol/L Low 3.3-5.1 [facility] Comment on above: Performed By: #### L 100.0500, L500.4100, L500.2500 ####[facility] [address] [place], [address] Sodium [Moles/Vol] 139 mmol/L Normal 133-145 [facility] Comment on above: Performed By: #### L 100.0500, L500.4100, L500.2500 ####[facility] [address] [place], [address] Urea nitrogen [Mass/Vol] 26 mg/dL High 4-19 [facility] Comment on above: Performed By: #### L 100.0500, L500.4100, L500.2500 ####[facility] [address] [place], [address] CBC-Complete Blood Cnt No Di ffon 12-29-2024 Erythrocyte distribution width (RBC) [Ratio] 13.4 % Normal 11.6-14.6 [facility] Comment on above: Performed By: #### L 100.0500, L500.4100, L500.2500 ####[facility] [address] [place], [address] Hematocrit (Bld) [Volume fraction] 37.5 % Normal 37-47 [facility] Comment on above: Performed By: #### L 100.0500, L500.4100, L500.2500 ####[facility] [address] [place], [address] Hemoglobin (Bld) [Mass/Vol] 12.2 g/dL Normal 12.0-15.0 [facility] Comment on above: Performed By: #### L 100.0500, L500.4100, L500.2500 ####[facility] [address] [place], [address] MCH (RBC) [Entitic mass] 27.2 pg Normal 27.0-32.0 [facility] Comment on above: Performed By: #### L 100.0500, L500.4100, L500.2500 ####[facility] [address] [place], [address] MCHC (RBC) [Mass/Vol] 32.5 g/dL Normal 32-36 [facility] Comment on above: Performed By: #### L 100.0500, L500.4100, L500.2500 ####[facility] [address] [place], [address] MCV (RBC) [Entitic vol] 83.7 fL Normal 81-99 [facility] Comment on above: Performed By: #### L 100.0500, L500.4100, L500.2500 ####[facility] [address] [place], [address] Platelet mean volume (Bld) [Entitic vol] 10.1 fL Normal 6.2-12.0 [facility] Comment on above: Performed By: #### L 100.0500, L500.4100, L500.2500 ####[facility] [address] [place], [address] Platelets (Bld) [#/Vol] 247 10*3/uL Normal 150-450 [facility] Comment on above: Performed By: #### L 100.0500, L500.4100, L500.2500 ####[facility] [address] [place], [address] RBC (Bld) [#/Vol] 4.48 10*6/uL Normal 4.2-5.[address] [facility] Comment on above: Performed By: #### L 100.0500, L500.4100, L500.2500 ####[facility] [address] [place], [address] RDW SD 41.0 fl Normal 35.1-43.9 [facility] Comment on above: Performed By: #### L 100.0500, L500.4100, L500.2500 ####[facility] [address] [place], [address] WBC (Bld) [#/Vol] 17.7 10*3/uL High 4.4-11.[address] [facility] Comment on above: Performed By: #### L 100.0500, L500.4100, L500.2500 ####[facility] [address] [place], [address] Lipid Profileon 12-29-2024 CHOL:HDL 3.35 Normal [facility] Comment on above: Performed By: #### L 100.0500, L500.4100, L500.2500 ####[facility] [address] [place], [address] Cholesterol [Mass/Vol] 84 mg/dL Normal <=200 [facility] Comment on above: Result Comment: Chol esterol level, Desirable <200 mg/dLBorderline high cholesterol 200-239 mg/dLHigh cholesterol >=240 mg/dLRecommendations of the NCEP Adult Treatment Panel for thefollowing risk-cutoff thresholds for the [place] Americanpulation. Performed By: #### L 100.0500, L500.4100, L500.2500 ####[facility] [address] [place], [address] Cholesterol in HDL [Mass/Vol] 25 mg/dL Low [facility] Comment on above: Result Comment: Robina onal Cholesterol Education Program (NCEP) guidelines:<40 mg/dL: Low HDL-cholesterol (major risk factor for CHD)>= 60 mg/dL: High HDL-cholesterol (negative risk factor forCHD)HDL-cholesterol is affected by a number of factors, e.g.smoking, exercise, hormones, sex and age. Performed By: #### L 100.0500, L500.4100, L500.2500 ####[facility] [address] [place], [address] Cholesterol in LDL [Mass/Vol] 42 mg/dL Normal [facility] Comment on above: Result Comment: Bord yglkxj=488-689 mg/dL Higher Lboy=695 mg/dL or greater Performed By: #### L 100.0500, L500.4100, L500.2500 ####[facility] [address] [place], [address] Cholesterol in VLDL [Mass/Vol] 17 mg/dL Normal 5-40 [facility] Comment on above: Performed By: #### L 100.0500, L500.4100, L500.2500 ####[facility] [address] [place], [address] Triglyceride [Mass/Vol] 85 mg/dL Normal [facility] Comment on above: Result Comment: The drugs N-Acetylcysteine and Metamizole may falselydepress this assay.Normal range: <150 mg/dLBorderline High: 150-199 mg/dLHigh: 200-499 mg/dLVery High: >500 mg/dL Performed By: #### L 100.0500, L500.4100, L500.2500 ####[facility] [address] [place], [address] 12 Lead EKGon 11-11-2024 12 Lead EKG Normal [facility] CBC W/Diff, Automatedon - Absolute Lymph 2.00 X10 3/uL Normal 0.83-4.51 [facility] Comment on above: Performed By: #### L 500.4050, L100.0100 ####[facility] [address] [place], [address] Absolute Neut 4.6 X10 3/uL Normal 2.0-7.7 [facility] Comment on above: Performed By: #### L 500.4050, L100.0100 ####[facility] [address] [place], [address] Basophils/100 WBC (Bld) 0.8 % Normal 0-[address] [facility] Comment on above: Performed By: #### L 500.4050, L100.0100 ####[facility] [address] [place], [address] Eosinophils/100 WBC (Bld) 3.7 % Normal 0-5 [facility] Comment on above: Performed By: #### L 500.4050, L100.0100 ####[facility] [address] [place], [address] Erythrocyte distribution width (RBC) [Ratio] 13.0 % Normal 11.6-14.6 [facility] Comment on above: Performed By: #### L 500.4050, L100.0100 ####[facility] [address] [place], [address] Hematocrit (Bld) [Volume fraction] 39.4 % Normal 37-47 [facility] Comment on above: Performed By: #### L 500.4050, L100.0100 ####[facility] [address] [place], [address] Hemoglobin (Bld) [Mass/Vol] 12.4 g/dL Normal 12.0-15.0 [facility] Comment on above: Performed By: #### L 500.4050, L100.0100 ####[facility] [address] [place], [address] IG% 0.100 Normal 0.0-0.9 [facility] Comment on above: Result Comment: IG% - Immature Granulocytes (promyelocytes, myelocytes andmetamyelocytes) > 1% indicates that a LEFT SHIFT is Present. Performed By: #### L 500.4050, L100.0100 ####[facility] [address] [place], [address] Lymphocytes/100 WBC (Bld) 25.8 % Normal 19-41 [facility] Comment on above: Performed By: #### L 500.4050, L100.0100 ####[facility] [address] [place], [address] MCH (RBC) [Entitic mass] 28.0 pg Normal 27.0-32.0 [facility] Comment on above: Performed By: #### L 500.4050, L100.0100 ####[facility] [address] [place], [address] MCHC (RBC) [Mass/Vol] 31.5 g/dL Low 32-36 [facility] Comment on above: Performed By: #### L 500.4050, L100.0100 ####[facility] [address] [place], [address] MCV (RBC) [Entitic vol] 88.9 fL Normal 81-[address] [facility] Comment on above: Performed By: #### L 500.4050, L100.0100 ####[facility] [address] [place], [address] Monocytes/100 WBC (Bld) 10.2 % High 0-[address] [facility] Comment on above: Performed By: #### L 500.4050, L100.0100 ####[facility] [address] [place], [address] Neutrophils/100 WBC (Bld) 59.4 % Normal 47-70 [facility] Comment on above: Performed By: #### L 500.4050, L100.0100 ####[facility] [address] [place], [address] Nucleated RBC (Bld) [#/Vol] 0 10*3/uL Normal 0-5 [facility] Comment on above: Performed By: #### L 500.4050, L100.0100 ####[facility] [address] [place], [address] Platelet mean volume (Bld) [Entitic vol] 10.5 fL Normal 6.2-12.0 [facility] Comment on above: Performed By: #### L 500.4050, L100.0100 ####[facility] [address] [place], [address] Platelets (Bld) [#/Vol] 257 10*3/uL Normal 150-450 [facility] Comment on above: Performed By: #### L 500.4050, L100.0100 ####[facility] [address] [place], [address] RBC (Bld) [#/Vol] 4.43 10*6/uL Normal 4.2-5.[address] [facility] Comment on above: Performed By: #### L 500.4050, L100.0100 ####[facility] [address] [place], [address] RDW SD 42.5 fl Normal 35.1-43.9 [facility] Comment on above: Performed By: #### L 500.4050, L100.0100 ####[facility] [address] [place], [address] WBC (Bld) [#/Vol] 7.8 10*3/uL Normal 4.4-11.0 [facility] Comment on above: Performed By: #### L 500.4050, L100.0100 ####[facility] [address] [place], [address] Comprehensive Metabolic Prof ilon 11-11-2024 Albumin [Mass/Vol] 3.4 g/dL Normal 3.4-4.8 [facility] Comment on above: Performed By: #### L 500.4050, L100.0100 ####[facility] [address] [place], [address] Albumin/Globulin [Mass ratio] 1.5 {ratio} Normal 0.9-2.4 [facility] Comment on above: Performed By: #### L 500.4050, L100.0100 ####[facility] [address] [place], [address] ALK PHOS 115 U/L High 35-104 [facility] Comment on above: Performed By: #### L 500.4050, L100.0100 ####[facility] [address] [place], [address] ALT [Catalytic activity/Vol] 8 U/L Normal <=34 [facility] Comment on above: Performed By: #### L 500.4050, L100.0100 ####[facility] [address] [place], [address] AST [Catalytic activity/Vol] 17 U/L Normal <=31 [facility] Comment on above: Performed By: #### L 500.4050, L100.0100 ####[facility] [address] [place], [address] Bilirubin [Mass/Vol] 0.21 mg/dL Normal 0.00-1.30 [facility] Comment on above: Performed By: #### L 500.4050, L100.0100 ####[facility] [address] [place], [address] BUN/CRE 28.6 RATIO High 10-20 [facility] Comment on above: Performed By: #### L 500.4050, L100.0100 ####[facility] [address] [place], [address] Calcium [Mass/Vol] 10.1 mg/dL Normal 7.6-11.0 [facility] Comment on above: Performed By: #### L 500.4050, L100.0100 ####[facility] [address] [place], [address] Chloride [Moles/Vol] 107 mmol/L Normal 98-108 [facility] Comment on above: Performed By: #### L 500.4050, L100.0100 ####[facility] [address] [place], [address] CO2 [Moles/Vol] 23.7 mmol/L Normal 21.0-32.0 [facility] Comment on above: Performed By: #### L 500.4050, L100.0100 ####[facility] [address] [place], [address] Creatinine [Mass/Vol] 0.58 mg/dL Low 0.70-1.20 [facility] Comment on above: Performed By: #### L 500.4050, L100.0100 ####[facility] [address] [place], [address] ECRCL 47.36 ml/min Low 50-250 [facility] Comment on above: Performed By: #### L 500.4050, L100.0100 ####[facility] [address] [place], [address] GAP 10 Normal 5-15 [facility] Comment on above: Performed By: #### L 500.4050, L100.0100 ####[facility] [address] [place], [address] GFR/1.73 sq M.predicted among non-blacks MDRD (S/P/Bld) [Vol rate/Area] 90 mL/min/{1.73_m2} Normal >60 [facility] Comment on above: Result Comment: mL/m in/1.73m2 CKD-EPI Creatinine Equation (2020) Performed By: #### L 500.4050, L100.0100 ####[facility] [address] [place], [address] Globulin (S) [Mass/Vol] 2.3 g/dL Normal 2.2-4.2 [facility] Comment on above: Performed By: #### L 500.4050, L100.0100 ####[facility] [address] [place], [address] Glucose [Mass/Vol] 99 mg/dL Normal 70-99 [facility] Comment on above: Performed By: #### L 500.4050, L100.0100 ####[facility] [address] [place], [address] Potassium [Moles/Vol] 3.7 mmol/L Normal 3.3-5.1 [facility] Comment on above: Performed By: #### L 500.4050, L100.0100 ####[facility] [address] [place], [address] Sodium [Moles/Vol] 140 mmol/L Normal 133-145 [facility] Comment on above: Performed By: #### L 500.4050, L100.0100 ####[facility] [address] [place], [address] T PROT 5.7 g/dL Low 5.9-8.4 [facility] Comment on above: Performed By: #### L 500.4050, L100.0100 ####[facility] [address] [place], [address] Urea nitrogen [Mass/Vol] 17 mg/dL Normal 4-19 [facility] Comment on above: Performed By: #### L 500.4050, L100.0100 ####[facility] [address] [place], [address] Folates,Serum (Folic Acid)on 11-11-2024 FOLATES,SERUM 9.94 ng/mL Normal 4.60-34.80 [facility] Comment on above: Order Comment: N Result Comment: Hemo lysis, Results will be affected, Requires Recollection. Performed By: #### L 505.5000, L506.0200, L501.9520 ####[facility] [address] [place], [address] L501.4021on 11-11-2024 Trop T High Sen 15 ng/L High <=14 [facility] Comment on above: Order Comment: *ADD ON PER DR.D SEGURA,RN* Performed By: #### L 501.4021 ####[facility] [address] [place], [address] Lipid Profileon 11-11-2024 CHOL:HDL 3.11 Normal [facility] Comment on above: Performed By: #### L 500.4100 ####[facility] [address] [place], [address] Cholesterol [Mass/Vol] 122 mg/dL Normal <=200 [facility] Comment on above: Result Comment: Chol esterol level, Desirable <200 mg/dLBorderline high cholesterol 200-239 mg/dLHigh cholesterol >=240 mg/dLRecommendations of the NCEP Adult Treatment Panel for thefollowing risk-cutoff thresholds for the [place] Americanpulation. Performed By: #### L 500.4100 ####[facility] [address] [place], [address] Cholesterol in HDL [Mass/Vol] 39 mg/dL Low [facility] Comment on above: Result Comment: Robina onal Cholesterol Education Program (NCEP) guidelines:<40 mg/dL: Low HDL-cholesterol (major risk factor for CHD)>= 60 mg/dL: High HDL-cholesterol (negative risk factor forCHD)HDL-cholesterol is affected by a number of factors, e.g.smoking, exercise, hormones, sex and age. Performed By: #### L 500.4100 ####[facility] [address] [place], [place], [id number] Cholesterol in LDL [Mass/Vol] 56 mg/dL Normal [facility] Comment on above: Result Comment: Bord svzamr=631-931 mg/dL Higher Aaxj=651 mg/dL or greater Performed By: #### L 500.4100 ####[facility] [address] [place], [address] Cholesterol in VLDL [Mass/Vol] 26 mg/dL Normal 5-40 [facility] Comment on above: Performed By: #### L 500.4100 ####[facility] [address] [place], [address] Triglyceride [Mass/Vol] 132 mg/dL Normal [facility] Comment on above: Result Comment: The drugs N-Acetylcysteine and Metamizole may falselydepress this assay.Normal range: <150 mg/dLBorderline High: 150-199 mg/dLHigh: 200-499 mg/dLVery High: >500 mg/dL Performed By: #### L 500.4100 ####[facility] [address] [place], [place], [phone] Stress Reporton 11-11-2024 Stress Report Normal [facility] Urine Drug Screen (VISTA)on 11-11-2024 AMPHETAMINES Negative Normal <1000 ng/mL [facility] Comment on above: Order Comment: UNK Performed By: #### L 505.5000, L506.0200, L501.9520 ####[facility] [address] [place], [address] BARBITIURATES Negative Normal < 200 ng/mL [facility] Comment on above: Order Comment: UNK Performed By: #### L 505.5000, L506.0200, L501.9520 ####[facility] [address] [place], [address] BENZODIAZIPINE Negative Normal < 200 ng/mL [facility] Comment on above: Order Comment: UNK Performed By: #### L 505.5000, L506.0200, L501.9520 ####[facility] [address] [place], [address] BUP Ur Drug Scr Negative Normal < 200 ng/mL [facility] Comment on above: Order Comment: UNK Performed By: #### L 505.5000, L506.0200, L501.9520 ####[facility] [address] [place], [address] COCAINE Negative Normal < 300 ng/mL [facility] Comment on above: Order Comment: UNK Performed By: #### L 505.5000, L506.0200, L501.9520 ####[facility] [address] [place], [address] Fentanyl Negative Normal [facility] Comment on above: Order Comment: UNK Performed By: #### L 505.5000, L506.0200, L501.9520 ####[facility] [address] [place], [address] METHADONE Negative Normal < 300 ng/mL [facility] Comment on above: Order Comment: UNK Performed By: #### L 505.5000, L506.0200, L501.9520 ####[facility] [address] [place], [address] OPIATES Negative Normal < 300 ng/mL [facility] Comment on above: Order Comment: UNK Performed By: #### L 505.5000, L506.0200, L501.9520 ####[facility] [address] [place], [address] OXYCODONE Negative Normal < 100 ng/mL [facility] Comment on above: Order Comment: UNK Performed By: #### L 505.5000, L506.0200, L501.9520 ####[facility] [address] [place], [address] PCP Negative Normal < 25 ng/mL [facility] Comment on above: Order Comment: UNK Performed By: #### L 505.5000, L506.0200, L501.9520 ####[facility] [address] [place], [address] THC Negative Normal < 50 ng/mL [facility] Comment on above: Order Comment: UNK Performed By: #### L 505.5000, L506.0200, L501.9520 ####[facility] [address] [place], [address] 12 Lead EKGon 11-10-2024 12 Lead EKG Normal [facility] 12 Lead EKG Normal [facility] Absolute neutrophil countOrd ered By: Apple Lee on 11-10-2024 Absolute neutrophil count 5.4 X10^3/uL 2.0-7.7 [facility] Alcohol, Blood (Medical)-Ser umon 11-10-2024 SERUM ETOH < 10.1 Normal <=10.0 [facility] Comment on above: Order Comment: *ADD ON TO 2 HOUR TROP* Result Comment: This test is for medical purposes only. The legaldefinition of intoxication varies according to local law. Performed By: #### L 501.9100 ####[facility] [address] [place], [address] Anion gap [Moles/Vol]Ordered By: Apple Lee on 11-10-2024 Anion gap in Serum or Plasma 13 5-15 [facility] BUN/creatinine ratioOrdered By: Apple Lee on 11-10-2024 BUN/creatinine ratio 18.4 RATIO 10- [facility] Basic Metabolic Profile (BMP )on 11-10-2024 BUN/CRE 18.4 RATIO Normal - [facility] Comment on above: Performed By: #### L 501.4021, L500.2500, L100.0100 ####[facility] [address] [place], [address] Calcium [Mass/Vol] 10.1 mg/dL Normal 7.6-11.0 [facility] Comment on above: Performed By: #### L 501.4021, L500.2500, L100.0100 ####[facility] [address] [place], [address] Chloride [Moles/Vol] 104 mmol/L Normal 98-108 [facility] Comment on above: Performed By: #### L 501.4021, L500.2500, L100.0100 ####[facility] [address] [place], [address] CO2 [Moles/Vol] 24.8 mmol/L Normal 21.0-32.0 [facility] Comment on above: Performed By: #### L 501.4021, L500.2500, L100.0100 ####[facility] [address] [place], [address] Creatinine [Mass/Vol] 0.72 mg/dL Normal 0.70-1.20 [facility] Comment on above: Performed By: #### L 501.4021, L500.2500, L100.0100 ####[facility] [address] [place], [address] ECRCL 48.67 ml/min Low 50-250 [facility] Comment on above: Performed By: #### L 501.4021, L500.2500, L100.0100 ####[facility] [address] [place], [address] GAP 13 Normal 5-15 [facility] Comment on above: Performed By: #### L 501.4021, L500.2500, L100.0100 ####[facility] [address] [place], [address] GFR/1.73 sq M.predicted among non-blacks MDRD (S/P/Bld) [Vol rate/Area] 82 mL/min/{1.73_m2} Normal >60 [facility] Comment on above: Result Comment: mL/m in/1.73m2 CKD-EPI Creatinine Equation (2020) Performed By: #### L 501.4021, L500.2500, L100.0100 ####[facility] [address] [place], [address] Glucose [Mass/Vol] 92 mg/dL Normal 70-99 [facility] Comment on above: Performed By: #### L 501.4021, L500.2500, L100.0100 ####[facility] [address] [place], [address] Potassium [Moles/Vol] 3.8 mmol/L Normal 3.3-5.1 [facility] Comment on above: Performed By: #### L 501.4021, L500.2500, L100.0100 ####[facility] [address] [place], [address] Sodium [Moles/Vol] 141 mmol/L Normal 133-145 [facility] Comment on above: Performed By: #### L 501.4021, L500.2500, L100.0100 ####[facility] [address] [place], [address] Urea nitrogen [Mass/Vol] 13 mg/dL Normal 4-19 [facility] Comment on above: Performed By: #### L 501.4021, L500.2500, L100.0100 ####[facility] [address] [place], [address] Basophil percentageOrdered B y: Apple Lee on 11-10-2024 Basophil percentage 0.9 % 0-[address] [facility] CBC W/Diff, Automatedon 10-22 Absolute Lymph 2.40 X10 3/uL Normal 0.83-4.51 [facility] Comment on above: Performed By: #### L 501.4021, L500.2500, L100.0100 ####[facility] [address] [place], [address] Absolute Neut 5.4 X10 3/uL Normal 2.0-7.7 [facility] Comment on above: Performed By: #### L 501.4021, L500.2500, L100.0100 ####[facility] [address] [place], [address] Basophils/100 WBC (Bld) 0.9 % Normal 0-1 [facility] Comment on above: Performed By: #### L 501.4021, L500.2500, L100.0100 ####[facility] [address] [place], [address] Eosinophils/100 WBC (Bld) 2.4 % Normal 0-5 [facility] Comment on above: Performed By: #### L 501.4021, L500.2500, L100.0100 ####[facility] [address] [place], [address] Erythrocyte distribution width (RBC) [Ratio] 12.8 % Normal 11.6-14.6 [facility] Comment on above: Performed By: #### L 501.4021, L500.2500, L100.0100 ####[facility] [address] [place], [address] Hematocrit (Bld) [Volume fraction] 43.0 % Normal 37-47 [facility] Comment on above: Performed By: #### L 501.4021, L500.2500, L100.0100 ####[facility] [address] [place], [address] Hemoglobin (Bld) [Mass/Vol] 13.9 g/dL Normal 12.0-15.0 [facility] Comment on above: Performed By: #### L 501.4021, L500.2500, L100.0100 ####[facility] [address] [place], [address] IG% 0.200 Normal 0.0-0.9 [facility] Comment on above: Result Comment: IG% - Immature Granulocytes (promyelocytes, myelocytes andmetamyelocytes) > 1% indicates that a LEFT SHIFT is Present. Performed By: #### L 501.4021, L500.2500, L100.0100 ####[facility] [address] [place], [address] Lymphocytes/100 WBC (Bld) 26.7 % Normal 19-41 [facility] Comment on above: Performed By: #### L 501.4021, L500.2500, L100.0100 ####[facility] [address] [place], [address] MCH (RBC) [Entitic mass] 28.1 pg Normal 27.0-32.0 [facility] Comment on above: Performed By: #### L 501.4021, L500.2500, L100.0100 ####[facility] [address] [place], [address] MCHC (RBC) [Mass/Vol] 32.3 g/dL Normal 32-36 [facility] Comment on above: Performed By: #### L 501.4021, L500.2500, L100.0100 ####[facility] [address] [place], [address] MCV (RBC) [Entitic vol] 86.9 fL Normal 81-[address] [facility] Comment on above: Performed By: #### L 501.4021, L500.2500, L100.0100 ####[facility] [address] [place], [address] Monocytes/100 WBC (Bld) 10.0 % Normal 0-10 [facility] Comment on above: Performed By: #### L 501.4021, L500.2500, L100.0100 ####[facility] [address] [place], [address] Neutrophils/100 WBC (Bld) 59.8 % Normal 47-70 [facility] Comment on above: Performed By: #### L 501.4021, L500.2500, L100.0100 ####[facility] [address] [place], [address] Nucleated RBC (Bld) [#/Vol] 0 10*3/uL Normal 0-5 [facility] Comment on above: Performed By: #### L 501.4021, L500.2500, L100.0100 ####[facility] [address] [place], [address] Platelet mean volume (Bld) [Entitic vol] 10.4 fL Normal 6.2-12.0 [facility] Comment on above: Performed By: #### L 501.4021, L500.2500, L100.0100 ####[facility] [address] [place], [address] Platelets (Bld) [#/Vol] 297 10*3/uL Normal 150-450 [facility] Comment on above: Performed By: #### L 501.4021, L500.2500, L100.0100 ####[facility] [address] [place], [address] RBC (Bld) [#/Vol] 4.95 10*6/uL Normal 4.2-5.[address] [facility] Comment on above: Performed By: #### L 501.4021, L500.2500, L100.0100 ####[facility] [address] [place], [address] RDW SD 40.1 fl Normal 35.1-43.9 [facility] Comment on above: Performed By: #### L 501.4021, L500.2500, L100.0100 ####[facility] [address] [place], [address] WBC (Bld) [#/Vol] 9.0 10*3/uL Normal 4.4-11.0 [facility] Comment on above: Performed By: #### L 501.4021, L500.2500, L100.0100 ####[facility] [address] [place], [address] Calcium [Mass/Vol]Ordered By : Apple Lee on 11-10-2024 Serum or plasma calcium measurement (mass/volume) 10.1 mg/dL 7.6-11.0 [facility] Carbon dioxide, total [Moles /volume] in Central venous bloodOrdered By: Apple Lee on 11-10-2024 Carbon dioxide, total [Moles/volume] in Central venous blood 24.8 mmol/L 21.0-32.0 [facility] Chest PA and Lateralon 11-10 Chest PA and Lateral Normal [facility] Chloride assayOrdered By: Ching Lee on 11-10-2024 Chloride assay 104 mmol/L 98-108 [facility] Creatinine [Mass/Vol]Ordered By: Apple Lee on 11-10-2024 Serum creatinine measurement (mass/volume) 0.72 mg/dL 0.70-1.20 [facility] Emergency Department Summary on 11-10-2024 Emergency Department Summary Normal [facility] Eosinophil percentageOrdered By: Apple eLe on 11-10-2024 Eosinophil percentage 2.4 % 0-5 [facility] Erythrocyte distribution wid th (RBC) [Ratio]Ordered By: Apple Lee on 11-10-2024 Erythrocyte distribution width ratio 12.8 % 11.6-14.6 [facility] Erythrocyte distribution width standard deviation 40.1 fl 35.1-43.9 [facility] Estimation of creatinine hernando aranceOrdered By: Apple Lee on 11-10-2024 Estimation of creatinine clearance 48.67 ml/min Low 50-250 [facility] GFR/1.73 sq M.predicted isela g non-blacks MDRD (S/P/Bld) [Vol rate/Area]Ordered By: Apple Lee on 11-10-2024 Glomerular filtration rate (GFR) estimation/1.73 sq m using serum, plasma, or whole b 82 >60 [facility] Glucose [Mass/Vol]Ordered By : Apple Lee on 11-10-2024 Serum glucose measurement (mass/volume) 92 mg/dL 70-99 [facility] H AND P Exam - Hospitaliston 11-10-2024 H&P Exam - Hospitalist Normal [facility] Hematocrit Auto (Bld) [Volum e fraction]Ordered By: Apple Lee on 11-10-2024 Automated blood hematocrit (percentage) 43.0 % 37-47 [facility] Hemoglobin measurementOrdere d By: Apple Lee on 11-10-2024 Hemoglobin measurement 13.9 g/dL 12.0-15.0 [facility] Immature granulocytes/100 WB C Auto (Bld)Ordered By: Apple Lee on 11-10-2024 Automated immature granulocyte percentage 0.200 % 0.0-0.9 [facility] L499.0042on 11-10-2024 Trop T High Sen 13 ng/L Normal <=14 [facility] Comment on above: Performed By: #### L 499.0042 ####[facility] [address] [place], [address] L501.4021on 11-10-2024 Trop T High Sen 16 ng/L High <=14 [facility] Comment on above: Performed By: #### L 501.4021, L500.2500, L100.0100 ####[facility] [address] [place], [address] Lymphocytes Auto (Unsp spec) [#/Vol]Ordered By: Apple Lee on 11-10-2024 Absolute lymphocyte count 2.40 X10^3/uL 0.83-4.51 [facility] Lymphocytes/100 WBC Auto (Un sp spec)Ordered By: Apple Lee on 11-10-2024 Automated lymphocyte count as percentage of total leukocytes 26.7 % 19-41 [facility] MCV (RBC) [Entitic vol]Order ed By: Apple Lee on 11-10-2024 MCV (mean corpuscular volume) determination 86.9 fL 81-99 [facility] Mean corpuscular hemoglobin (MCH) determinationOrdered By: Apple Lee on 11-10-2024 Mean corpuscular hemoglobin (MCH) determination 28.1 pg 27.0-32.0 [facility] Mean corpuscular hemoglobin concentration (MCHC) determinationOrdered By: Apple Lee on 11-10-2024 Mean corpuscular hemoglobin concentration (MCHC) determination 32.3 g/dL 32-36 [facility] Mean platelet volume determi nationOrdered By: Apple Lee on 11-10-2024 Mean platelet volume determination 10.4 fl 6.2-12.0 [facility] Monocyte percentageOrdered B y: Apple Lee on 11-10-2024 Monocyte percentage 10.0 % 0-[address] [facility] Neutrophil percentageOrdered By: Apple Lee on 11-10-2024 Neutrophil percentage 59.8 % 47-70 [facility] Nucleated red blood cell per centageOrdered By: Apple Lee on 11-10-2024 Nucleated red blood cell percentage 0 % 0-5 [facility] Platelet countOrdered By: Ching sanchezttlis Lee on 11-10-2024 Platelet count 297 K/mm3 150-450 [facility] Potassium (Unsp spec) [Mass/ Vol]Ordered By: Apple Lee on 11-10-2024 Potassium measurement (mass/volume) 3.8 mmol/L 3.3-5.1 [facility] RBC Auto (Bld) [#/Vol]Ordere d By: Apple Lee on 11-10-2024 Automated blood erythrocyte count 4.95 M/mm3 4.2-5.4 [facility] Sodium levelOrdered By: Cb Lee on 11-10-2024 Sodium level 141 mmol/L 133-145 [facility] Thyroid Stim Hormone (TSH)on 11-10-2024 TSH 3.070 uIU/mL Normal 0.300-4.200 [facility] Comment on above: Performed By: #### L 505.5000, L506.0200, L501.9520 ####[facility] [address] [place], [place], [id number] Troponin T.cardiac High sens itivity method [Mass/Vol]Ordered By: Apple Lee on 11-10-2024 Troponin T.cardiac [Mass/volume] in Serum or Plasma by High sensitivity method 13 ng/L <14 [facility] Troponin T.cardiac [Mass/volume] in Serum or Plasma by High sensitivity method 16 ng/L High <14 [facility] Urea nitrogen [Mass/Vol]Orde red By: Apple Lee on 11-10-2024 Serum or plasma urea nitrogen measurement (mass/volume) 13 mg/dL 4-19 [facility] Vitamin B12on 11-10-2024 Cobalamin (Vitamin B12) [Mass/Vol] 322 pg/mL Normal 180-914 [facility] Comment on above: Performed By: #### L 503.0106 ####[facility] [address] [place], [place], [address] White blood cell (WBC) count Ordered By: Apple Lee on 11-10-2024 White blood cell (WBC) count 9.0 K/mm3 4.4-11.0 [facility] 12 Lead EKGon 09-18-2024 12 Lead EKG Normal [facility] ALP [Catalytic activity/Vol] Ordered By: Abundio Tyson on 09-18-2024 Serum or plasma alkaline phosphatase measurement 112 U/L High 35-104 [facility] ALT [Catalytic activity/Vol] Ordered By: Abundio Tyson on 09-18-2024 Serum or plasma alanine aminotransferase (ALT) measurement 11 U/L <35 [facility] Absolute neutrophil countOrd ered By: Abundio Tyson on 09-18-2024 Absolute neutrophil count 6.5 X10^3/uL 2.0-7.7 [facility] Albumin [Mass/Vol]Ordered By : Abundio Tyson on 09-18-2024 Serum or plasma albumin measurement (mass/volume) 3.7 g/dL 3.4-4.8 [facility] Albumin/Globulin [Mass ratio ]Ordered By: Abundio Tyson on 09-18-2024 Serum or plasma albumin/globulin mass ratio 1.4 RATIO 0.9-2.4 [facility] Anion gap [Moles/Vol]Ordered By: Abundio Tyson on 09-18-2024 Serum or plasma anion gap determination (moles/volume) 10 5-15 [facility] BUN/creatinine ratioOrdered By: Abundio Tyson on 09-18-2024 BUN/creatinine ratio 21.8 RATIO High 10-20 [facility] Basophil percentageOrdered B y: Abundio Tyson on 09-18-2024 Basophil percentage 0.8 % 0-[address] [facility] Bilirubin, totalOrdered By: Abundio Tyson on 09-18-2024 Bilirubin, total 0.40 mg/dL 0.00-1.30 [facility] CBC W/Diff, Automatedon 08-24 Absolute Lymph 1.75 X10 3/uL Normal 0.83-4.51 [facility] Comment on above: Performed By: #### L 500.4050, L100.0100 ####[facility] [address] [place], [place], [address] Absolute Neut 6.5 X10 3/uL Normal 2.0-7.7 [facility] Comment on above: Performed By: #### L 500.4050, L100.0100 ####[facility] [address] [place], [address] Basophils/100 WBC (Bld) 0.8 % Normal 0-[address] [facility] Comment on above: Performed By: #### L 500.4050, L100.0100 ####[facility] [address] [place], [address] Eosinophils/100 WBC (Bld) 3.9 % Normal 0-5 [facility] Comment on above: Performed By: #### L 500.4050, L100.0100 ####[facility] [address] [place], [address] Erythrocyte distribution width (RBC) [Ratio] 14.0 % Normal 11.6-14.6 [facility] Comment on above: Performed By: #### L 500.4050, L100.0100 ####[facility] [address] [place], [address] Hematocrit (Bld) [Volume fraction] 41.5 % Normal 37-47 [facility] Comment on above: Performed By: #### L 500.4050, L100.0100 ####[facility] [address] [place], [address] Hemoglobin (Bld) [Mass/Vol] 13.5 g/dL Normal 12.0-15.0 [facility] Comment on above: Performed By: #### L 500.4050, L100.0100 ####[facility] [address] [place], [address] IG% 0.500 Normal 0.0-0.9 [facility] Comment on above: Result Comment: IG% - Immature Granulocytes (promyelocytes, myelocytes andmetamyelocytes) > 1% indicates that a LEFT SHIFT is Present. Performed By: #### L 500.4050, L100.0100 ####[facility] [address] [place], [address] Lymphocytes/100 WBC (Bld) 18.0 % Low 19-41 [facility] Comment on above: Performed By: #### L 500.4050, L100.0100 ####[facility] [address] [place], [address] MCH (RBC) [Entitic mass] 28.5 pg Normal 27.0-32.0 [facility] Comment on above: Performed By: #### L 500.4050, L100.0100 ####[facility] [address] [place], [address] MCHC (RBC) [Mass/Vol] 32.5 g/dL Normal 32-36 [facility] Comment on above: Performed By: #### L 500.4050, L100.0100 ####[facility] [address] [place], [address] MCV (RBC) [Entitic vol] 87.6 fL Normal 81-99 [facility] Comment on above: Performed By: #### L 500.4050, L100.0100 ####[facility] [address] [place], [address] Monocytes/100 WBC (Bld) 9.5 % Normal 0-10 [facility] Comment on above: Performed By: #### L 500.4050, L100.0100 ####[facility] [address] [place], [address] Neutrophils/100 WBC (Bld) 67.3 % Normal 47-70 [facility] Comment on above: Performed By: #### L 500.4050, L100.0100 ####[facility] [address] [place], [address] Nucleated RBC (Bld) [#/Vol] 0 10*3/uL Normal 0-5 [facility] Comment on above: Performed By: #### L 500.4050, L100.0100 ####[facility] [address] [place], [address] Platelet mean volume (Bld) [Entitic vol] 10.2 fL Normal 6.2-12.0 [facility] Comment on above: Performed By: #### L 500.4050, L100.0100 ####[facility] [address] [place], [address] Platelets (Bld) [#/Vol] 290 10*3/uL Normal 150-450 [facility] Comment on above: Performed By: #### L 500.4050, L100.0100 ####[facility] [address] [place], [address] RBC (Bld) [#/Vol] 4.74 10*6/uL Normal 4.2-5.[address] [facility] Comment on above: Performed By: #### L 500.4050, L100.0100 ####[facility] [address] [place], [address] RDW SD 45.1 fl High 35.1-43.9 [facility] Comment on above: Performed By: #### L 500.4050, L100.0100 ####[facility] [address] [place], [address] WBC (Bld) [#/Vol] 9.7 10*3/uL Normal 4.4-11.0 [facility] Comment on above: Performed By: #### L 500.4050, L100.0100 ####[facility] [address] [place], [address] Calcium [Mass/Vol]Ordered By : Abundio Tyson on 09-18-2024 Serum or plasma calcium measurement (mass/volume) 10.9 mg/dL 7.6-11.0 [facility] Carbon dioxide measurementOr dered By: Abundio Tyson on 09-18-2024 Carbon dioxide measurement 26.0 mmol/L 22.0-29.0 [facility] Chest 1 View (Portable)on Chest 1 View (Portable) Normal [facility] Chloride measurementOrdered By: Abundio Tyson on 09-18-2024 Chloride measurement 103 mmol/L 96-108 [facility] Clarity (U)Ordered By: Abundio Tyson on 09-18-2024 Urine clarity Clear Clear [facility] Color (U)Ordered By: Abundio colvin on 09-18-2024 Urine color determination Yellow Yellow [facility] Comprehensive Metabolic Prof ilon 09-18-2024 Albumin [Mass/Vol] 3.7 g/dL Normal 3.4-4.8 [facility] Comment on above: Performed By: #### L 500.4050, L100.0100 ####[facility] [address] [place], [address] Albumin/Globulin [Mass ratio] 1.4 {ratio} Normal 0.9-2.4 [facility] Comment on above: Performed By: #### L 500.4050, L100.0100 ####[facility] [address] [place], [address] ALK PHOS 112 U/L High 35-104 [facility] Comment on above: Performed By: #### L 500.4050, L100.0100 ####[facility] [address] [place], [address] ALT [Catalytic activity/Vol] 11 U/L Normal <=34 [facility] Comment on above: Performed By: #### L 500.4050, L100.0100 ####[facility] [address] [place], [address] Anion gap [Moles/Vol] 10 mmol/L Normal 5-15 [facility] Comment on above: Performed By: #### L 500.4050, L100.0100 ####[facility] [address] [place], [address] AST [Catalytic activity/Vol] 17 U/L Normal <=31 [facility] Comment on above: Performed By: #### L 500.4050, L100.0100 ####[facility] [address] [place], [address] Bilirubin [Mass/Vol] 0.40 mg/dL Normal 0.00-1.30 [facility] Comment on above: Performed By: #### L 500.4050, L100.0100 ####[facility] [address] [place], [address] BUN/CRE 21.8 RATIO High 10-20 [facility] Comment on above: Performed By: #### L 500.4050, L100.0100 ####[facility] [address] [place], [address] Calcium [Mass/Vol] 10.9 mg/dL Normal 7.6-11.0 [facility] Comment on above: Performed By: #### L 500.4050, L100.0100 ####[facility] [address] [place], [address] Chloride [Moles/Vol] 103 mmol/L Normal 96-108 [facility] Comment on above: Performed By: #### L 500.4050, L100.0100 ####[facility] [address] [place], [address] CO2 [Moles/Vol] 26.0 mmol/L Normal 22.0-29.0 [facility] Comment on above: Performed By: #### L 500.4050, L100.0100 ####[facility] [address] [place], [address] Creatinine [Mass/Vol] 0.5 mg/dL Low 0.6-1.0 [facility] Comment on above: Performed By: #### L 500.4050, L100.0100 ####[facility] [address] [place], [address] ECRCL 50.34 ml/min Normal [facility] Comment on above: Performed By: #### L 500.4050, L100.0100 ####[facility] [address] [place], [address] GFR/1.73 sq M.predicted among non-blacks MDRD (S/P/Bld) [Vol rate/Area] 93 mL/min/{1.73_m2} Normal >60 [facility] Comment on above: Result Comment: mL/m in/1.73m2 CKD-EPI Creatinine Equation (2020) Performed By: #### L 500.4050, L100.0100 ####[facility] [address] [place], [address] Globulin (S) [Mass/Vol] 2.7 g/dL Normal 2.2-4.2 [facility] Comment on above: Performed By: #### L 500.4050, L100.0100 ####[facility] [address] [place], [address] Glucose [Mass/Vol] 98 mg/dL Normal 70-99 [facility] Comment on above: Performed By: #### L 500.4050, L100.0100 ####[facility] [address] [place], [address] Potassium [Moles/Vol] 4.2 mmol/L Normal 3.3-5.1 [facility] Comment on above: Performed By: #### L 500.4050, L100.0100 ####[facility] [address] [place], [address] Sodium [Moles/Vol] 138 mmol/L Normal 133-145 [facility] Comment on above: Performed By: #### L 500.4050, L100.0100 ####[facility] [address] [place], [address] T PROT 6.4 g/dL Normal 5.9-8.4 [facility] Comment on above: Performed By: #### L 500.4050, L100.0100 ####[facility] [address] [place], [address] Urea nitrogen [Mass/Vol] 11 mg/dL Normal 4-19 [facility] Comment on above: Performed By: #### L 500.4050, L100.0100 ####[facility] [address] [place], [address] Creatinine [Moles/Vol]Ordere d By: Abundio Tyson on 09-18-2024 Serum or plasma creatinine measurement (moles/volume) 0.5 mg/dL Low 0.6-1.0 [facility] Emergency Department Summary on 09-18-2024 Emergency Department Summary Normal [facility] Eosinophil percentageOrdered By: Abundio Tyson on 09-18-2024 Eosinophil percentage 3.9 % 0-5 [facility] Epithelial cells.squamous LM Ql (Urine sed)Ordered By: Abundio Tysno on 09-18-2024 Squamous epithelial cells detection in urine sediment by light microscopy 0-5 SEEN /hpf 5-10 [facility] Erythrocyte distribution wid th (RBC) [Ratio]Ordered By: Abundio Tyson on 09-18-2024 Erythrocyte distribution width ratio 14.0 % 11.6-14.6 [facility] Erythrocyte distribution width standard deviation 45.1 fl High 35.1-43.9 [facility] Estimation of creatinine hernando aranceOrdered By: Abundio Tyson on 09-18-2024 Estimation of creatinine clearance 50.34 ml/min [facility] GFR/1.73 sq M.predicted isela g non-blacks MDRD (S/P/Bld) [Vol rate/Area]Ordered By: Abundio Tyson on 09-18-2024 Glomerular filtration rate (GFR) estimation/1.73 sq m using serum, plasma, or whole b 93 >60 [facility] Glucose [Mass/Vol]Ordered By : Abundio Tyson on 09-18-2024 Serum glucose measurement (mass/volume) 98 mg/dL 70-99 [facility] Hematocrit Auto (Bld) [Volum e fraction]Ordered By: Abundio Tyson on 09-18-2024 Automated blood hematocrit (percentage) 41.5 % 37-47 [facility] Hemoglobin measurementOrdere d By: Abundio Tyson on 09-18-2024 Hemoglobin measurement 13.5 g/dL 12.0-15.0 [facility] Immature granulocytes/100 WB C Auto (Bld)Ordered By: Abundio Tyson on 09-18-2024 Automated immature granulocyte percentage 0.500 % 0.0-0.9 [facility] L499.0042on 09-18-2024 Trop T Delta 0 Normal [facility] Comment on above: Result Comment: If c linical suspicion for ACS is high, suggest getting athird troponin. Otherwise, stress test or CTCA. Performed By: #### L 499.0042 ####[facility] [address] [place], [place], [address] Trop T High Sen 14 ng/L Normal <=14 [facility] Comment on above: Performed By: #### L 499.0042 ####[facility] [address] [place], [address] L499.0043on 09-18-2024 Trop T Delta Normal [facility] Comment on above: Result Comment: PT D ISCHARGED FROM ED Performed By: #### L 499.0043 ####[facility] [address] [place], [address] Trop T High Sen Normal <=14 [facility] Comment on above: Result Comment: PT D ISCHARGED FROM ED Performed By: #### L 499.0043 ####[facility] [address] [place], [address] L501.4021on 09-18-2024 Trop T High Sen 15 ng/L High <=14 [facility] Comment on above: Performed By: #### L 501.4021 ####[facility] [address] [place], [address] Lymphocytes Auto (Unsp spec) [#/Vol]Ordered By: Abundio Tyson on 09-18-2024 Absolute lymphocyte count 1.75 X10^3/uL 0.83-4.51 [facility] Lymphocytes/100 WBC Auto (Un sp spec)Ordered By: Abundio Tyson on 09-18-2024 Automated lymphocyte count as percentage of total leukocytes 18.0 % Low 19-41 [facility] MCV (RBC) [Entitic vol]Order ed By: Abundio Tyson on 09-18-2024 MCV (mean corpuscular volume) determination 87.6 fL 81-99 [facility] Mean corpuscular hemoglobin (MCH) determinationOrdered By: Abundio Tyson on 09-18-2024 Mean corpuscular hemoglobin (MCH) determination 28.5 pg 27.0-32.0 [facility] Mean corpuscular hemoglobin concentration (MCHC) determinationOrdered By: Abundio Tyson on 09-18-2024 Mean corpuscular hemoglobin concentration (MCHC) determination 32.5 g/dL 32-36 [facility] Mean platelet volume determi nationOrdered By: Abundio Tyson on 09-18-2024 Mean platelet volume determination 10.2 fl 6.2-12.0 [facility] Monocyte percentageOrdered B y: Abundio Tyson on 09-18-2024 Monocyte percentage 9.5 % 0-[address] [facility] Neutrophil percentageOrdered By: Abundio Tyson on 09-18-2024 Neutrophil percentage 67.3 % 47-70 [facility] No Panel InformationOrdered By: Abundio Tyson on 09-18-2024 0 [facility] 15 ng/L High <14 [facility] 17 U/L <32 [facility] Nucleated red blood cell per centageOrdered By: Abundio Tyson on 09-18-2024 Nucleated red blood cell percentage 0 % 0-5 [facility] Platelet countOrdered By: Vance Tyson on 09-18-2024 Platelet count 290 K/mm3 150-450 [facility] Potassium [Moles/Vol]Ordered By: Abundio Tyson on 09-18-2024 Serum or plasma potassium measurement 4.2 mmol/L 3.3-5.1 [facility] RBC Auto (Bld) [#/Vol]Ordere d By: Abundio Tyson on 09-18-2024 Automated blood erythrocyte count 4.74 M/mm3 4.2-5.4 [facility] Serum globulin measurementOr dered By: Abundio Tyson on 09-18-2024 Serum globulin measurement 2.7 g/dL 2.2-4.2 [facility] Sodium [Moles/Vol]Ordered By : Abundio Tyson on 09-18-2024 Serum or plasma sodium measurement (moles/volume) 138 mmol/L 133-145 [facility] Specific gravity (U) [Rel de nsity]Ordered By: Abundio Tyson on 09-18-2024 Urine specific gravity measurement 1.010 1.002-1.030 [facility] Total proteinOrdered By: Zaynab Tyson on 09-18-2024 Total protein 6.4 g/dL 5.9-8.4 [facility] Troponin T.cardiac High sens itivity method [Mass/Vol]Ordered By: Abundio Tyson on 09-18-2024 Troponin T.cardiac [Mass/volume] in Serum or Plasma by High sensitivity method 14 ng/L <14 [facility] Urea nitrogen [Mass/Vol]Orde red By: Abundio Tyson on 09-18-2024 Serum or plasma urea nitrogen measurement (mass/volume) 11 mg/dL 4-19 [facility] Urinalysis, Completeon 09-18 EPI,SQUAMOUS 0-5 SEEN Normal 5-10 [facility] Comment on above: Order Comment: CLEAN CATCH Performed By: #### L 400.0001 ####[facility] [address] [place], [place], [id number] RBC 0 SEEN Normal 0-5 [facility] Comment on above: Order Comment: CLEAN CATCH Performed By: #### L 400.0001 ####[facility] [address] [place], [address] BACTERIA 0 SEEN Normal None Seen [facility] Comment on above: Order Comment: CLEAN CATCH Performed By: #### L 400.0001 ####[facility] [address] [place], [address] Mucus Ql (Urine sed) 0 SEEN Normal [facility] Comment on above: Order Comment: CLEAN CATCH Performed By: #### L 400.0001 ####[facility] [address] [place], [address] WBC 0 SEEN Normal 0-5 [facility] Comment on above: Order Comment: CLEAN CATCH Performed By: #### L 400.0001 ####[facility] [address] [place], [address] Urine glucose detectionOrder ed By: Abundio Tyson on 09-18-2024 Urine glucose detection Normal mg/dl Normal [facility] Urine total bilirubin detect ion by test stripOrdered By: Abundio Tyson on 09-18-2024 Urine total bilirubin detection by test strip Negative Negative [facility] White blood cell (WBC) count Ordered By: Abunido Tyson on 09-18-2024 White blood cell (WBC) count 9.7 K/mm3 4.4-11.0 [facility] White blood cell countOrdere d By: Abundio Tyson on 09-18-2024 White blood cell count 0 SEEN /hpf [facility] pH (U)Ordered By: Abundio Cornejo ca on 09-18-2024 Urine pH 8.0 5.0 - 8.0 [facility] Basic Metabolic Profile (BMP )on 09-03-2024 BUN/CRE 28.0 RATIO High 10-20 [facility] Comment on above: Order Comment: 101-1 Performed By: #### L 100.0500, L500.2500 ####[facility] [address] [place], [address] CA,Total 10.3 mg/dL High 8.5-10.1 [facility] Comment on above: Order Comment: 101-1 Performed By: #### L 100.0500, L500.2500 ####[facility] [address] [place], [address] Chloride [Moles/Vol] 112 mmol/L High 98-107 [facility] Comment on above: Order Comment: 101-1 Performed By: #### L 100.0500, L500.2500 ####[facility] [address] [place], [address] CO2 [Moles/Vol] 26.0 mmol/L Normal 21.0-32.0 [facility] Comment on above: Order Comment: 101-1 Performed By: #### L 100.0500, L500.2500 ####[facility] [address] [place], [address] Creatinine [Mass/Vol] 0.46 mg/dL Low 0.55-1.02 [facility] Comment on above: Order Comment: 101-1 Result Comment: The validity of the calculated GFR GFRAA in patients over70 years has not been determined. Clinical correlation isessential. Performed By: #### L 100.0500, L500.2500 ####[facility] [address] [place], [address] EST GFR - AA 165 mL/min Normal >60 [facility] Comment on above: Order Comment: 101-1 Result Comment: Afri can Thai GFR Calc Performed By: #### L 100.0500, L500.2500 ####[facility] [address] [place], [address] GAP 4 Low 5-15 [facility] Comment on above: Order Comment: 101-1 Performed By: #### L 100.0500, L500.2500 ####[facility] [address] [place], [address] GFR/1.73 sq M.predicted among non-blacks MDRD (S/P/Bld) [Vol rate/Area] 136 mL/min/{1.73_m2} Normal >60 [facility] Comment on above: Order Comment: 101-1 Result Comment: Non- GFR Calc Performed By: #### L 100.0500, L500.2500 ####[facility] [address] [place], [address] Glucose [Mass/Vol] 99 mg/dL Normal 74-106 [facility] Comment on above: Order Comment: 101-1 Performed By: #### L 100.0500, L500.2500 ####[facility] [address] [place], [address] Potassium [Moles/Vol] 4.0 mmol/L Normal 3.5-5.1 [facility] Comment on above: Order Comment: 101-1 Performed By: #### L 100.0500, L500.2500 ####[facility] [address] [place], [address] Sodium [Moles/Vol] 142 mmol/L Normal 136-145 [facility] Comment on above: Order Comment: 101-1 Performed By: #### L 100.0500, L500.2500 ####[facility] [address] [place], [address] Urea nitrogen [Mass/Vol] 13 mg/dL Normal 7-18 [facility] Comment on above: Order Comment: 101-1 Performed By: #### L 100.0500, L500.2500 ####[facility] [address] [place], [address] Blood urea nitrogen (BUN)/cr eatinine ratioOrdered By: James Leach on 09-03-2024 Blood urea nitrogen (BUN)/creatinine ratio 28.0 RATIO High 10-20 [facility] CBC-Complete Blood Cnt No Di ffon 09-03-2024 Erythrocyte distribution width (RBC) [Ratio] 15.1 % High 11.6-14.6 [facility] Comment on above: Order Comment: 101-1 Performed By: #### L 100.0500, L500.2500 ####[facility] [address] [place], [address] Hematocrit (Bld) [Volume fraction] 37.1 % Normal 37-47 [facility] Comment on above: Order Comment: 101-1 Performed By: #### L 100.0500, L500.2500 ####[facility] [address] [place], [address] Hemoglobin (Bld) [Mass/Vol] 11.2 g/dL Low 12.0-15.0 [facility] Comment on above: Order Comment: 101-1 Performed By: #### L 100.0500, L500.2500 ####[facility] [address] [place], [address] MCH (RBC) [Entitic mass] 27.5 pg Normal 27.0-32.0 [facility] Comment on above: Order Comment: 101-1 Performed By: #### L 100.0500, L500.2500 ####[facility] [address] [place], [address] MCHC (RBC) [Mass/Vol] 30.2 g/dL Low 32-36 [facility] Comment on above: Order Comment: 101-1 Performed By: #### L 100.0500, L500.2500 ####[facility] [address] [place], [address] MCV (RBC) [Entitic vol] 91.2 fL Normal 81-[address] [facility] Comment on above: Order Comment: 101-1 Performed By: #### L 100.0500, L500.2500 ####[facility] [address] [place], [address] Platelet mean volume (Bld) [Entitic vol] 10.6 fL Normal 6.2-12.0 [facility] Comment on above: Order Comment: 101-1 Performed By: #### L 100.0500, L500.2500 ####[facility] [address] [place], [address] Platelets (Bld) [#/Vol] 238 10*3/uL Normal 150-450 [facility] Comment on above: Order Comment: 101-1 Performed By: #### L 100.0500, L500.2500 ####[facility] [address] [place], [address] RBC (Bld) [#/Vol] 4.07 10*6/uL Low 4.2-5.[address] [facility] Comment on above: Order Comment: 101-1 Performed By: #### L 100.0500, L500.2500 ####[facility] [address] [place], [address] RDW SD 50.7 fl High 35.1-43.9 [facility] Comment on above: Order Comment: 101-1 Performed By: #### L 100.0500, L500.2500 ####[facility] [address] [place], [address] WBC (Bld) [#/Vol] 6.9 10*3/uL Normal 4.4-11.0 [facility] Comment on above: Order Comment: 101-1 Performed By: #### L 100.0500, L500.2500 ####[facility] [address] [place], [address] Calcium [Mass/Vol]Ordered By : James Leach on 09-03-2024 Serum or plasma calcium measurement (mass/volume) 10.3 mg/dL High 8.5-10.1 [facility] Carbon dioxide measurementOr dered By: James Leach on 09-03-2024 Carbon dioxide measurement 26.0 mmol/L 21.0-32.0 [facility] Chloride measurementOrdered By: James Leach on 09-03-2024 Chloride measurement 112 mmol/L High 98-107 [facility] Creatinine [Mass/Vol]Ordered By: James Leach on 09-03-2024 Serum or plasma creatinine measurement (mass/volume) 0.46 mg/dL Low 0.55-1.02 [facility] Erythrocyte distribution wid th (RBC) [Ratio]Ordered By: James Leach on 09-03-2024 Erythrocyte distribution width ratio 15.1 % High 11.6-14.6 [facility] Erythrocyte distribution width standard deviation 50.7 fl High 35.1-43.9 [facility] Estimated glomerular filtrat ion rate (GFR) AmericanOrdered By: James Leach on 09-03-2024 Estimated glomerular filtration rate (GFR) 165 mL/min >60 [facility] Glomerular filtration rate ( GFR) estimationOrdered By: James Leach on 09-03-2024 Glomerular filtration rate (GFR) estimation 136 mL/min >60 [facility] Glucose measurementOrdered B y: James Leach on 09-03-2024 Glucose measurement 99 mg/dL 74-[address] [facility] Hematocrit Auto (Bld) [Volum e fraction]Ordered By: James Leach on 09-03-2024 Automated blood hematocrit (percentage) 37.1 % 37-47 [facility] Hemoglobin measurementOrdere d By: James Leach on 09-03-2024 Hemoglobin measurement 11.2 g/dL Low 12.0-15.0 [facility] MCV (RBC) [Entitic vol]Order ed By: James Leach on 09-03-2024 MCV (mean corpuscular volume) determination 91.2 fL 81-99 [facility] Mean corpuscular hemoglobin (MCH) determinationOrdered By: James Leach on 09-03-2024 Mean corpuscular hemoglobin (MCH) determination 27.5 pg 27.0-32.0 [facility] Mean corpuscular hemoglobin concentration (MCHC) determinationOrdered By: James Leach on 09-03-2024 Mean corpuscular hemoglobin concentration (MCHC) determination 30.2 g/dL Low 32-36 [facility] Mean platelet volume determi nationOrdered By: James Leach on 09-03-2024 Mean platelet volume determination 10.6 fl 6.2-12.0 [facility] Platelet countOrdered By: Mykel Leach on 09-03-2024 Platelet count 238 K/mm3 150-450 [facility] Potassium measurementOrdered By: James Leach on 09-03-2024 Potassium measurement 4.0 mmol/L 3.5-5.1 [facility] RBC Auto (Bld) [#/Vol]Ordere d By: James Leach on 09-03-2024 Automated blood erythrocyte count 4.07 M/mm3 Low 4.2-5.4 [facility] Serum anion gap measurementO rdered By: James Leach on 09-03-2024 Serum anion gap measurement 4 Low 5-15 [facility] Sodium levelOrdered By: Mekhi Leach on 09-03-2024 Sodium level 142 mmol/L 136-145 [facility] Urea nitrogen [Mass/Vol]Orde red By: James Leach on 09-03-2024 Serum or plasma urea nitrogen measurement (mass/volume) 13 mg/dL 7-18 [facility] White blood cell (WBC) count Ordered By: James Leach on 09-03-2024 White blood cell (WBC) count 6.9 K/mm3 4.4-11.0 [facility] Absolute neutrophil countOrd ered By: Niall Loco on 09-02-2024 Absolute neutrophil count 4.2 X10^3/uL 2.0-7.7 [facility] Basic Metabolic Profile (BMP )on 09-02-2024 BUN/CRE 27.6 RATIO High 10-20 [facility] Comment on above: Performed By: #### L 100.0100, L500.2500 ####[facility] [address] [place], [address] CA,Total 10.3 mg/dL High 8.5-10.1 [facility] Comment on above: Performed By: #### L 100.0100, L500.2500 ####[facility] [address] [place], [address] Chloride [Moles/Vol] 111 mmol/L High 98-107 [facility] Comment on above: Performed By: #### L 100.0100, L500.2500 ####[facility] [address] [place], [address] CO2 [Moles/Vol] 28.0 mmol/L Normal 21.0-32.0 [facility] Comment on above: Performed By: #### L 100.0100, L500.2500 ####[facility] [address] [place], [address] Creatinine [Mass/Vol] 0.40 mg/dL Low 0.55-1.02 [facility] Comment on above: Result Comment: The validity of the calculated GFR GFRAA in patients over70 years has not been determined. Clinical correlation isessential. Performed By: #### L 100.0100, L500.2500 ####[facility] [address] [place], [address] ECRCL 48.92 ml/min Normal [facility] Comment on above: Performed By: #### L 100.0100, L500.2500 ####[facility] [address] [place], [address] EST GFR - AA 197 mL/min Normal >60 [facility] Comment on above: Result Comment: Afri can Thai GFR Calc Performed By: #### L 100.0100, L500.2500 ####[facility] [address] [place], [address] GAP 4 Low 5-15 [facility] Comment on above: Performed By: #### L 100.0100, L500.2500 ####[facility] [address] [place], [address] GFR/1.73 sq M.predicted among non-blacks MDRD (S/P/Bld) [Vol rate/Area] 163 mL/min/{1.73_m2} Normal >60 [facility] Comment on above: Result Comment: Non- GFR Calc Performed By: #### L 100.0100, L500.2500 ####[facility] [address] [place], [address] Glucose [Mass/Vol] 86 mg/dL Normal 74-106 [facility] Comment on above: Performed By: #### L 100.0100, L500.2500 ####[facility] [address] [place], [address] Potassium [Moles/Vol] 3.8 mmol/L Normal 3.5-5.1 [facility] Comment on above: Performed By: #### L 100.0100, L500.2500 ####[facility] [address] [place], [address] Sodium [Moles/Vol] 142 mmol/L Normal 136-145 [facility] Comment on above: Performed By: #### L 100.0100, L500.2500 ####[facility] [address] [place], [address] Urea nitrogen [Mass/Vol] 11 mg/dL Normal 7-18 [facility] Comment on above: Performed By: #### L 100.0100, L500.2500 ####[facility] [address] [place], [address] Basophil percentageOrdered B y: Niall Loco on 09-02-2024 Basophil percentage 1.0 % 0-[address] [facility] Blood urea nitrogen (BUN)/cr eatinine ratioOrdered By: Niall Loco on 09-02-2024 Blood urea nitrogen (BUN)/creatinine ratio 27.6 RATIO High 10-20 [facility] [facility] CBC W/Diff, Automatedon 08-23 Absolute Lymph 1.36 X10 3/uL Normal 0.83-4.51 [facility] Comment on above: Performed By: #### L 100.0100, L500.2500 ####[facility] [address] [place], [address] Absolute Neut 4.2 X10 3/uL Normal 2.0-7.7 [facility] Comment on above: Performed By: #### L 100.0100, L500.2500 ####[facility] [address] [place], [address] Basophils/100 WBC (Bld) 1.0 % Normal 0-[address] [facility] Comment on above: Performed By: #### L 100.0100, L500.2500 ####[facility] [address] [place], [address] Eosinophils/100 WBC (Bld) 6.6 % High 0-5 [facility] Comment on above: Performed By: #### L 100.0100, L500.2500 ####[facility] [address] [place], [address] Erythrocyte distribution width (RBC) [Ratio] 14.9 % High 11.6-14.6 [facility] Comment on above: Performed By: #### L 100.0100, L500.2500 ####[facility] [address] [place], [address] Hematocrit (Bld) [Volume fraction] 37.4 % Normal 37-47 [facility] Comment on above: Performed By: #### L 100.0100, L500.2500 ####[facility] [address] [place], [address] Hemoglobin (Bld) [Mass/Vol] 11.5 g/dL Low 12.0-15.0 [facility] Comment on above: Performed By: #### L 100.0100, L500.2500 ####[facility] [address] [place], [address] IG% 0.400 Normal 0.0-0.9 [facility] Comment on above: Result Comment: IG% - Immature Granulocytes (promyelocytes, myelocytes andmetamyelocytes) > 1% indicates that a LEFT SHIFT is Present. Performed By: #### L 100.0100, L500.2500 ####[facility] [address] [place], [address] Lymphocytes/100 WBC (Bld) 19.9 % Normal 19-41 [facility] Comment on above: Performed By: #### L 100.0100, L500.2500 ####[facility] [address] [place], [address] MCH (RBC) [Entitic mass] 27.5 pg Normal 27.0-32.0 [facility] Comment on above: Performed By: #### L 100.0100, L500.2500 ####[facility] [address] [place], [address] MCHC (RBC) [Mass/Vol] 30.7 g/dL Low 32-36 [facility] Comment on above: Performed By: #### L 100.0100, L500.2500 ####[facility] [address] [place], [address] MCV (RBC) [Entitic vol] 89.5 fL Normal 81-99 [facility] Comment on above: Performed By: #### L 100.0100, L500.2500 ####[facility] [address] [place], [address] Monocytes/100 WBC (Bld) 11.1 % High 0-[address] [facility] Comment on above: Performed By: #### L 100.0100, L500.2500 ####[facility] [address] [place], [address] Neutrophils/100 WBC (Bld) 61.0 % Normal 47-70 [facility] Comment on above: Performed By: #### L 100.0100, L500.2500 ####[facility] [address] [place], [address] Nucleated RBC (Bld) [#/Vol] 0 10*3/uL Normal 0-5 [facility] Comment on above: Performed By: #### L 100.0100, L500.2500 ####[facility] [address] [place], [address] Platelet mean volume (Bld) [Entitic vol] 10.4 fL Normal 6.2-12.0 [facility] Comment on above: Performed By: #### L 100.0100, L500.2500 ####[facility] [address] [place], [address] Platelets (Bld) [#/Vol] 242 10*3/uL Normal 150-450 [facility] Comment on above: Performed By: #### L 100.0100, L500.2500 ####[facility] [address] [place], [address] RBC (Bld) [#/Vol] 4.18 10*6/uL Low 4.2-5.[address] [facility] Comment on above: Performed By: #### L 100.0100, L500.2500 ####[facility] [address] [place], [address] RDW SD 49.2 fl High 35.1-43.9 [facility] Comment on above: Performed By: #### L 100.0100, L500.2500 ####[facility] [address] [place], [address] WBC (Bld) [#/Vol] 6.8 10*3/uL Normal 4.4-11.0 [facility] Comment on above: Performed By: #### L 100.0100, L500.2500 ####[facility] [address] [place], [address] Calcium [Mass/Vol]Ordered By : Niall Loco on 09-02-2024 Serum or plasma calcium measurement (mass/volume) 10.3 mg/dL High 8.5-10.1 [facility] Carbon dioxide measurementOr dered By: Niall Loco on 09-02-2024 Carbon dioxide measurement 28.0 mmol/L 21.0-32.0 [facility] Chloride measurementOrdered By: Niall Loco on 09-02-2024 Chloride measurement 111 mmol/L High 98-107 [facility] Creatinine [Mass/Vol]Ordered By: Niall Loco on 09-02-2024 Serum or plasma creatinine measurement (mass/volume) 0.40 mg/dL Low 0.55-1.02 [facility] Eosinophil percentageOrdered By: Niall Loco on 09-02-2024 Eosinophil percentage 6.6 % High 0-5 [facility] Erythrocyte distribution wid th (RBC) [Ratio]Ordered By: Niall Loco on 09-02-2024 Erythrocyte distribution width ratio 14.9 % High 11.6-14.6 [facility] Erythrocyte distribution width standard deviation 49.2 fl High 35.1-43.9 [facility] Estimated glomerular filtrat ion rate (GFR) AmericanOrdered By: Niall Loco on 09-02-2024 Estimated glomerular filtration rate (GFR) 197 mL/min >60 [facility] Estimation of creatinine hernando aranceOrdered By: Niall Loco on 09-02-2024 Estimation of creatinine clearance 48.92 ml/min [facility] Glomerular filtration rate ( GFR) estimationOrdered By: Niall Loco on 09-02-2024 Glomerular filtration rate (GFR) estimation 163 mL/min >60 [facility] Glucose measurementOrdered B y: Niall Loco on 09-02-2024 Glucose measurement 86 mg/dL 74-[address] [facility] Hematocrit Auto (Bld) [Volum e fraction]Ordered By: Niall Loco on 09-02-2024 Automated blood hematocrit (percentage) 37.4 % 37-47 [facility] Hemoglobin measurementOrdere d By: Niall Loco on 09-02-2024 Hemoglobin measurement 11.5 g/dL Low 12.0-15.0 [facility] Immature granulocytes/100 WB C Auto (Bld)Ordered By: Niall Loco on 09-02-2024 Automated immature granulocyte percentage 0.400 % 0.0-0.9 [facility] Lymphocytes Auto (Unsp spec) [#/Vol]Ordered By: Niall Loco on 09-02-2024 Absolute lymphocyte count 1.36 X10^3/uL 0.83-4.51 [facility] Lymphocytes/100 WBC Auto (Un sp spec)Ordered By: Niall Loco on 09-02-2024 Automated lymphocyte count as percentage of total leukocytes 19.9 % 19-41 [facility] MCV (RBC) [Entitic vol]Order ed By: Niall Loco on 09-02-2024 MCV (mean corpuscular volume) determination 89.5 fL 81-99 [facility] Mean corpuscular hemoglobin (MCH) determinationOrdered By: Niall Loco on 09-02-2024 Mean corpuscular hemoglobin (MCH) determination 27.5 pg 27.0-32.0 [facility] Mean corpuscular hemoglobin concentration (MCHC) determinationOrdered By: Niall Loco on 09-02-2024 Mean corpuscular hemoglobin concentration (MCHC) determination 30.7 g/dL Low 32-36 [facility] Mean platelet volume determi nationOrdered By: Niall Loco on 09-02-2024 Mean platelet volume determination 10.4 fl 6.2-12.0 [facility] Monocyte percentageOrdered B y: Niall Loco on 09-02-2024 Monocyte percentage 11.1 % High 0-[address] [facility] Neutrophil percentageOrdered By: Niall Loco on 09-02-2024 Neutrophil percentage 61.0 % 47-70 [facility] Nucleated red blood cell per centageOrdered By: Niall Loco on 09-02-2024 Nucleated red blood cell percentage 0 % 0-5 [facility] Platelet countOrdered By: Bob Loco on 09-02-2024 Platelet count 242 K/mm3 150-450 [facility] Potassium measurementOrdered By: Niall Loco on 09-02-2024 Potassium measurement 3.8 mmol/L 3.5-5.1 [facility] RBC Auto (Bld) [#/Vol]Ordere d By: Niall Loco on 09-02-2024 Automated blood erythrocyte count 4.18 M/mm3 Low 4.2-5.4 [facility] Serum anion gap measurementO rdered By: Niall Loco on 09-02-2024 Serum anion gap measurement 4 Low 5-15 [facility] Sodium levelOrdered By: Beto Loco on 09-02-2024 Sodium level 142 mmol/L 136-145 [facility] Urea nitrogen [Mass/Vol]Orde red By: Niall Loco on 09-02-2024 Serum or plasma urea nitrogen measurement (mass/volume) 11 mg/dL 7-18 [facility] White blood cell (WBC) count Ordered By: Niall Loco on 09-02-2024 White blood cell (WBC) count 6.8 K/mm3 4.4-11.0 [facility] Basic Metabolic Profile (BMP )on 09-01-2024 BUN/CRE 27.5 RATIO High 10-20 [facility] Comment on above: Performed By: #### L 500.2500, L100.0100 ####[facility] [address] [place], [address] CA,Total 10.6 mg/dL High 8.5-10.1 [facility] Comment on above: Performed By: #### L 500.2500, L100.0100 ####[facility] [address] [place], [address] Chloride [Moles/Vol] 111 mmol/L High 98-107 [facility] Comment on above: Performed By: #### L 500.2500, L100.0100 ####[facility] [address] [place], [address] CO2 [Moles/Vol] 28.0 mmol/L Normal 21.0-32.0 [facility] Comment on above: Performed By: #### L 500.2500, L100.0100 ####[facility] [address] [place], [address] Creatinine [Mass/Vol] 0.47 mg/dL Low 0.55-1.02 [facility] Comment on above: Result Comment: The validity of the calculated GFR GFRAA in patients over70 years has not been determined. Clinical correlation isessential. Performed By: #### L 500.2500, L100.0100 ####[facility] [address] [place], [address] ECRCL 48.92 ml/min Normal [facility] Comment on above: Performed By: #### L 500.2500, L100.0100 ####[facility] [address] [place], [address] EST GFR - AA 162 mL/min Normal >60 [facility] Comment on above: Result Comment: Afri can Thai GFR Calc Performed By: #### L 500.2500, L100.0100 ####[facility] [address] [place], [address] GAP 3 Low 5-15 [facility] Comment on above: Performed By: #### L 500.2500, L100.0100 ####[facility] [address] [place], [address] GFR/1.73 sq M.predicted among non-blacks MDRD (S/P/Bld) [Vol rate/Area] 134 mL/min/{1.73_m2} Normal >60 [facility] Comment on above: Result Comment: Non- GFR Calc Performed By: #### L 500.2500, L100.0100 ####[facility] [address] [place], [address] Glucose [Mass/Vol] 103 mg/dL Normal 74-106 [facility] Comment on above: Result Comment: Fast ing Glucose result from 100 to 125 mg/dLsuggests IMPAIRED HOMEOSTASIS per A.D.A. criteria. Performed By: #### L 500.2500, L100.0100 ####[facility] [address] [place], [address] Potassium [Moles/Vol] 3.9 mmol/L Normal 3.5-5.1 [facility] Comment on above: Performed By: #### L 500.2500, L100.0100 ####[facility] [address] [place], [address] Sodium [Moles/Vol] 142 mmol/L Normal 136-145 [facility] Comment on above: Performed By: #### L 500.2500, L100.0100 ####[facility] [address] [place], [address] Urea nitrogen [Mass/Vol] 13 mg/dL Normal 7-18 [facility] Comment on above: Performed By: #### L 500.2500, L100.0100 ####[facility] [address] [place], [address] CBC W/Diff, Automatedon 08-23 0-2024 Absolute Lymph 1.21 X10 3/uL Normal 0.83-4.51 [facility] Comment on above: Performed By: #### L 500.2500, L100.0100 ####[facility] [address] [place], [address] Absolute Neut 4.7 X10 3/uL Normal 2.0-7.7 [facility] Comment on above: Performed By: #### L 500.2500, L100.0100 ####[facility] [address] [place], [address] Basophils/100 WBC (Bld) 1.4 % High 0-[address] [facility] Comment on above: Performed By: #### L 500.2500, L100.0100 ####[facility] [address] [place], [address] Eosinophils/100 WBC (Bld) 5.9 % High 0-5 [facility] Comment on above: Performed By: #### L 500.2500, L100.0100 ####[facility] [address] [place], [address] Erythrocyte distribution width (RBC) [Ratio] 15.1 % High 11.6-14.6 [facility] Comment on above: Performed By: #### L 500.2500, L100.0100 ####[facility] [address] [place], [address] Hematocrit (Bld) [Volume fraction] 38.1 % Normal 37-47 [facility] Comment on above: Performed By: #### L 500.2500, L100.0100 ####[facility] [address] [place], [address] Hemoglobin (Bld) [Mass/Vol] 12.1 g/dL Normal 12.0-15.0 [facility] Comment on above: Performed By: #### L 500.2500, L100.0100 ####[facility] [address] [place], [address] IG% 0.600 Normal 0.0-0.9 [facility] Comment on above: Result Comment: IG% - Immature Granulocytes (promyelocytes, myelocytes andmetamyelocytes) > 1% indicates that a LEFT SHIFT is Present. Performed By: #### L 500.2500, L100.0100 ####[facility] [address] [place], [address] Lymphocytes/100 WBC (Bld) 16.7 % Low 19-41 [facility] Comment on above: Performed By: #### L 500.2500, L100.0100 ####[facility] [address] [place], [address] MCH (RBC) [Entitic mass] 28.3 pg Normal 27.0-32.0 [facility] Comment on above: Performed By: #### L 500.2500, L100.0100 ####[facility] [address] [place], [address] MCHC (RBC) [Mass/Vol] 31.8 g/dL Low 32-36 [facility] Comment on above: Performed By: #### L 500.2500, L100.0100 ####[facility] [address] [place], [address] MCV (RBC) [Entitic vol] 89.0 fL Normal 81-[address] [facility] Comment on above: Performed By: #### L 500.2500, L100.0100 ####[facility] [address] [place], [address] Monocytes/100 WBC (Bld) 11.2 % High 0-10 [facility] Comment on above: Performed By: #### L 500.2500, L100.0100 ####[facility] [address] [place], [address] Neutrophils/100 WBC (Bld) 64.2 % Normal 47-70 [facility] Comment on above: Performed By: #### L 500.2500, L100.0100 ####[facility] [address] [place], [address] Nucleated RBC (Bld) [#/Vol] 0 10*3/uL Normal 0-5 [facility] Comment on above: Performed By: #### L 500.2500, L100.0100 ####[facility] [address] [place], [address] Platelet mean volume (Bld) [Entitic vol] 10.3 fL Normal 6.2-12.0 [facility] Comment on above: Performed By: #### L 500.2500, L100.0100 ####[facility] [address] [place], [address] Platelets (Bld) [#/Vol] 265 10*3/uL Normal 150-450 [facility] Comment on above: Performed By: #### L 500.2500, L100.0100 ####[facility] [address] [place], [address] RBC (Bld) [#/Vol] 4.28 10*6/uL Normal 4.2-5.[address] [facility] Comment on above: Performed By: #### L 500.2500, L100.0100 ####[facility] [address] [place], [address] RDW SD 49.1 fl High 35.1-43.9 [facility] Comment on above: Performed By: #### L 500.2500, L100.0100 ####[facility] [address] [place], [address] WBC (Bld) [#/Vol] 7.3 10*3/uL Normal 4.4-11.0 [facility] Comment on above: Performed By: #### L 500.2500, L100.0100 ####[facility] [address] [place], [address] Basic Metabolic Profile (BMP )on 08-31-2024 BUN/CRE 26.1 RATIO High 10-20 [facility] Comment on above: Performed By: #### L 501.2300, L501.5200, L100.0100, L500.2500 ####[facility] [address] [place], [address] CA,Total 9.9 mg/dL Normal 8.5-10.1 [facility] Comment on above: Performed By: #### L 501.2300, L501.5200, L100.0100, L500.2500 ####[facility] [address] [place], [address] Chloride [Moles/Vol] 111 mmol/L High 98-107 [facility] Comment on above: Performed By: #### L 501.2300, L501.5200, L100.0100, L500.2500 ####[facility] [address] [place], [address] CO2 [Moles/Vol] 27.0 mmol/L Normal 21.0-32.0 [facility] Comment on above: Performed By: #### L 501.2300, L501.5200, L100.0100, L500.2500 ####[facility] [address] [place], [address] Creatinine [Mass/Vol] 0.50 mg/dL Low 0.55-1.02 [facility] Comment on above: Result Comment: The validity of the calculated GFR GFRAA in patients over70 years has not been determined. Clinical correlation isessential. Performed By: #### L 501.2300, L501.5200, L100.0100, L500.2500 ####[facility] [address] [place], [address] ECRCL 48.92 ml/min Normal [facility] Comment on above: Performed By: #### L 501.2300, L501.5200, L100.0100, L500.2500 ####[facility] [address] [place], [address] EST GFR - AA 152 mL/min Normal >60 [facility] Comment on above: Result Comment: Afri can Thai GFR Calc Performed By: #### L 501.2300, L501.5200, L100.0100, L500.2500 ####[facility] [address] [place], [address] GAP 4 Low 5-15 [facility] Comment on above: Performed By: #### L 501.2300, L501.5200, L100.0100, L500.2500 ####[facility] [address] [place], [address] GFR/1.73 sq M.predicted among non-blacks MDRD (S/P/Bld) [Vol rate/Area] 126 mL/min/{1.73_m2} Normal >60 [facility] Comment on above: Result Comment: Non- GFR Calc Performed By: #### L 501.2300, L501.5200, L100.0100, L500.2500 ####[facility] [address] [place], [address] Glucose [Mass/Vol] 97 mg/dL Normal 74-106 [facility] Comment on above: Performed By: #### L 501.2300, L501.5200, L100.0100, L500.2500 ####[facility] [address] [place], [address] Potassium [Moles/Vol] 3.6 mmol/L Normal 3.5-5.1 [facility] Comment on above: Performed By: #### L 501.2300, L501.5200, L100.0100, L500.2500 ####[facility] [address] [place], [address] Sodium [Moles/Vol] 142 mmol/L Normal 136-145 [facility] Comment on above: Performed By: #### L 501.2300, L501.5200, L100.0100, L500.2500 ####[facility] [address] [place], [address] Urea nitrogen [Mass/Vol] 13 mg/dL Normal 7-18 [facility] Comment on above: Performed By: #### L 501.2300, L501.5200, L100.0100, L500.2500 ####[facility] [address] [place], [address] CBC W/Diff, Automatedon 02-0 -2024 Absolute Lymph 1.44 X10 3/uL Normal 0.83-4.51 [facility] Comment on above: Performed By: #### L 501.2300, L501.5200, L100.0100, L500.2500 ####[facility] [address] [place], [address] Absolute Neut 3.6 X10 3/uL Normal 2.0-7.7 [facility] Comment on above: Performed By: #### L 501.2300, L501.5200, L100.0100, L500.2500 ####[facility] [address] [place], [address] Basophils/100 WBC (Bld) 1.3 % High 0-[address] [facility] Comment on above: Performed By: #### L 501.2300, L501.5200, L100.0100, L500.2500 ####[facility] [address] [place], [address] Eosinophils/100 WBC (Bld) 6.1 % High 0-5 [facility] Comment on above: Performed By: #### L 501.2300, L501.5200, L100.0100, L500.2500 ####[facility] [address] [place], [address] Erythrocyte distribution width (RBC) [Ratio] 14.9 % High 11.6-14.6 [facility] Comment on above: Performed By: #### L 501.2300, L501.5200, L100.0100, L500.2500 ####[facility] [address] [place], [address] Hematocrit (Bld) [Volume fraction] 37.0 % Normal 37-47 [facility] Comment on above: Performed By: #### L 501.2300, L501.5200, L100.0100, L500.2500 ####[facility] [address] [place], [address] Hemoglobin (Bld) [Mass/Vol] 11.8 g/dL Low 12.0-15.0 [facility] Comment on above: Performed By: #### L 501.2300, L501.5200, L100.0100, L500.2500 ####[facility] [address] [place], [address] IG% 0.300 Normal 0.0-0.9 [facility] Comment on above: Result Comment: IG% - Immature Granulocytes (promyelocytes, myelocytes andmetamyelocytes) > 1% indicates that a LEFT SHIFT is Present. Performed By: #### L 501.2300, L501.5200, L100.0100, L500.2500 ####[facility] [address] [place], [address] Lymphocytes/100 WBC (Bld) 23.0 % Normal 19-41 [facility] Comment on above: Performed By: #### L 501.2300, L501.5200, L100.0100, L500.2500 ####[facility] [address] [place], [address] MCH (RBC) [Entitic mass] 28.4 pg Normal 27.0-32.0 [facility] Comment on above: Performed By: #### L 501.2300, L501.5200, L100.0100, L500.2500 ####[facility] [address] [place], [address] MCHC (RBC) [Mass/Vol] 31.9 g/dL Low 32-36 [facility] Comment on above: Performed By: #### L 501.2300, L501.5200, L100.0100, L500.2500 ####[facility] [address] [place], [address] MCV (RBC) [Entitic vol] 88.9 fL Normal 81-[address] [facility] Comment on above: Performed By: #### L 501.2300, L501.5200, L100.0100, L500.2500 ####[facility] [address] [place], [address] Monocytes/100 WBC (Bld) 11.8 % High 0-[address] [facility] Comment on above: Performed By: #### L 501.2300, L501.5200, L100.0100, L500.2500 ####[facility] [address] [place], [address] Neutrophils/100 WBC (Bld) 57.5 % Normal 47-70 [facility] Comment on above: Performed By: #### L 501.2300, L501.5200, L100.0100, L500.2500 ####[facility] [address] [place], [address] Nucleated RBC (Bld) [#/Vol] 0 10*3/uL Normal 0-5 [facility] Comment on above: Performed By: #### L 501.2300, L501.5200, L100.0100, L500.2500 ####[facility] [address] [place], [address] Platelet mean volume (Bld) [Entitic vol] 10.1 fL Normal 6.2-12.0 [facility] Comment on above: Performed By: #### L 501.2300, L501.5200, L100.0100, L500.2500 ####[facility] [address] [place], [address] Platelets (Bld) [#/Vol] 283 10*3/uL Normal 150-450 [facility] Comment on above: Performed By: #### L 501.2300, L501.5200, L100.0100, L500.2500 ####[facility] [address] [place], [address] RBC (Bld) [#/Vol] 4.16 10*6/uL Low 4.2-5.[address] [facility] Comment on above: Performed By: #### L 501.2300, L501.5200, L100.0100, L500.2500 ####[facility] [address] [place], [address] RDW SD 48.6 fl High 35.1-43.9 [facility] Comment on above: Performed By: #### L 501.2300, L501.5200, L100.0100, L500.2500 ####[facility] [address] [place], [address] WBC (Bld) [#/Vol] 6.3 10*3/uL Normal 4.4-11.0 [facility] Comment on above: Performed By: #### L 501.2300, L501.5200, L100.0100, L500.2500 ####[facility] [address] [place], [address] Magnesiumon 08-31-2024 Magnesium [Mass/Vol] 1.9 mg/dL Normal 1.6-2.6 [facility] Comment on above: Performed By: #### L 501.2300, L501.5200, L100.0100, L500.2500 ####[facility] [address] [place], [address] Magnesium measurementOrdered By: Niall Loco on 08-31-2024 Magnesium measurement 1.9 mg/dL 1.6-2.6 [facility] Phosphoruson 08-31-2024 Phosphate [Mass/Vol] 2.8 mg/dL Normal 2.5-4.9 [facility] Comment on above: Performed By: #### L 501.2300, L501.5200, L100.0100, L500.2500 ####[facility] [address] [place], [address] Phosphorus measurementOrdere d By: Niall Loco on 08-31-2024 Phosphorus measurement 2.8 mg/dL 2.5-4.9 [facility] Bacteria LM.HPF (Urine sed) [#/Area]Ordered By: Betty Mike on 08-30-2024 Urine sediment bacteria count by microscopy (number/high power field) RARE /hpf None Seen [facility] Basic Metabolic Profile (BMP )on 08-30-2024 BUN/CRE 27.3 RATIO High 10-20 [facility] Comment on above: Performed By: #### L 501.9520, L100.0100, L501.2300, L500.2500, L501.5200 ####[facility] [address] [place], [address] CA,Total 10.4 mg/dL High 8.5-10.1 [facility] Comment on above: Performed By: #### L [id number], L100.0100, L501.2300, L500.2500, L501.5200 ####[facility] [address] [place], [address] Chloride [Moles/Vol] 111 mmol/L High 98-107 [facility] Comment on above: Performed By: #### L [id number], L100.0100, L501.2300, L500.2500, L501.5200 ####[facility] [address] [place], [address] CO2 [Moles/Vol] 28.0 mmol/L Normal 21.0-32.0 [facility] Comment on above: Performed By: #### L [id number], L100.0100, L501.2300, L500.2500, L501.5200 ####[facility] [address] [place], [address] Creatinine [Mass/Vol] 0.55 mg/dL Normal 0.55-1.02 [facility] Comment on above: Result Comment: The validity of the calculated GFR GFRAA in patients over70 years has not been determined. Clinical correlation isessential. Performed By: #### L 501.9520, L100.0100, L501.2300, L500.2500, L501.5200 ####[facility] [address] [place], [address] ECRCL 48.92 ml/min Normal [facility] Comment on above: Performed By: #### L 501.9520, L100.0100, L501.2300, L500.2500, L501.5200 ####[facility] [address] [place], [address] EST GFR - AA 136 mL/min Normal >60 [facility] Comment on above: Result Comment: Afri can Thai GFR Calc Performed By: #### L 501.9520, L100.0100, L501.2300, L500.2500, L501.5200 ####[facility] [address] [place], [address] GAP 4 Low 5-15 [facility] Comment on above: Performed By: #### L 501.9520, L100.0100, L501.2300, L500.2500, L501.5200 ####[facility] [address] [place], [address] GFR/1.73 sq M.predicted among non-blacks MDRD (S/P/Bld) [Vol rate/Area] 112 mL/min/{1.73_m2} Normal >60 [facility] Comment on above: Result Comment: Non- GFR Calc Performed By: #### L 501.9520, L100.0100, L501.2300, L500.2500, L501.5200 ####[facility] [address] [place], [address] Glucose [Mass/Vol] 92 mg/dL Normal 74-106 [facility] Comment on above: Performed By: #### L 501.9520, L100.0100, L501.2300, L500.2500, L501.5200 ####[facility] [address] [place], [address] Potassium [Moles/Vol] 3.8 mmol/L Normal 3.5-5.1 [facility] Comment on above: Performed By: #### L 501.9520, L100.0100, L501.2300, L500.2500, L501.5200 ####[facility] [address] [place], [address] Sodium [Moles/Vol] 143 mmol/L Normal 136-145 [facility] Comment on above: Performed By: #### L 501.9520, L100.0100, L501.2300, L500.2500, L501.5200 ####[facility] [address] [place], [address] Urea nitrogen [Mass/Vol] 15 mg/dL Normal 7-18 [facility] Comment on above: Performed By: #### L 501.9520, L100.0100, L501.2300, L500.2500, L501.5200 ####[facility] [address] [place], [address] CBC W/Diff, Automatedon 02-0 8-2024 Absolute Lymph 1.38 X10 3/uL Normal 0.83-4.51 [facility] Comment on above: Performed By: #### L 501.9520, L100.0100, L501.2300, L500.2500, L501.5200 ####[facility] [address] [place], [address] Absolute Neut 5.7 X10 3/uL Normal 2.0-7.7 [facility] Comment on above: Performed By: #### L 501.9520, L100.0100, L501.2300, L500.2500, L501.5200 ####[facility] [address] [place], [address] Basophils/100 WBC (Bld) 1.1 % High 0-[address] [facility] Comment on above: Performed By: #### L 501.9520, L100.0100, L501.2300, L500.2500, L501.5200 ####[facility] [address] [place], [address] Eosinophils/100 WBC (Bld) 3.7 % Normal 0-5 [facility] Comment on above: Performed By: #### L 501.9520, L100.0100, L501.2300, L500.2500, L501.5200 ####[facility] [address] [place], [address] Erythrocyte distribution width (RBC) [Ratio] 15.0 % High 11.6-14.6 [facility] Comment on above: Performed By: #### L 501.9520, L100.0100, L501.2300, L500.2500, L501.5200 ####[facility] [address] [place], [address] Hematocrit (Bld) [Volume fraction] 39.2 % Normal 37-47 [facility] Comment on above: Performed By: #### L 501.9520, L100.0100, L501.2300, L500.2500, L501.5200 ####[facility] [address] [place], [address] Hemoglobin (Bld) [Mass/Vol] 12.1 g/dL Normal 12.0-15.0 [facility] Comment on above: Performed By: #### L 501.9520, L100.0100, L501.2300, L500.2500, L501.5200 ####[facility] [address] [place], [address] IG% 0.200 Normal 0.0-0.9 [facility] Comment on above: Result Comment: IG% - Immature Granulocytes (promyelocytes, myelocytes andmetamyelocytes) > 1% indicates that a LEFT SHIFT is Present. Performed By: #### L 501.9520, L100.0100, L501.2300, L500.2500, L501.5200 ####[facility] [address] [place], [address] Lymphocytes/100 WBC (Bld) 16.4 % Low 19-41 [facility] Comment on above: Performed By: #### L 501.9520, L100.0100, L501.2300, L500.2500, L501.5200 ####[facility] [address] [place], [address] MCH (RBC) [Entitic mass] 27.4 pg Normal 27.0-32.0 [facility] Comment on above: Performed By: #### L 501.9520, L100.0100, L501.2300, L500.2500, L501.5200 ####[facility] [address] [place], [address] MCHC (RBC) [Mass/Vol] 30.9 g/dL Low 32-36 [facility] Comment on above: Performed By: #### L 501.9520, L100.0100, L501.2300, L500.2500, L501.5200 ####[facility] [address] [place], [address] MCV (RBC) [Entitic vol] 88.9 fL Normal 81-99 [facility] Comment on above: Performed By: #### L 501.9520, L100.0100, L501.2300, L500.2500, L501.5200 ####[facility] [address] [place], [address] Monocytes/100 WBC (Bld) 10.8 % High 0-10 [facility] Comment on above: Performed By: #### L 501.9520, L100.0100, L501.2300, L500.2500, L501.5200 ####[facility] [address] [place], [address] Neutrophils/100 WBC (Bld) 67.8 % Normal 47-70 [facility] Comment on above: Performed By: #### L 501.9520, L100.0100, L501.2300, L500.2500, L501.5200 ####[facility] [address] [place], [address] Nucleated RBC (Bld) [#/Vol] 0 10*3/uL Normal 0-5 [facility] Comment on above: Performed By: #### L 501.9520, L100.0100, L501.2300, L500.2500, L501.5200 ####[facility] [address] [place], [address] Platelet mean volume (Bld) [Entitic vol] 10.1 fL Normal 6.2-12.0 [facility] Comment on above: Performed By: #### L 501.9520, L100.0100, L501.2300, L500.2500, L501.5200 ####[facility] [address] [place], [address] Platelets (Bld) [#/Vol] 305 10*3/uL Normal 150-450 [facility] Comment on above: Performed By: #### L 501.9520, L100.0100, L501.2300, L500.2500, L501.5200 ####[facility] [address] [place], [address] RBC (Bld) [#/Vol] 4.41 10*6/uL Normal 4.2-5.[address] [facility] Comment on above: Performed By: #### L 501.9520, L100.0100, L501.2300, L500.2500, L501.5200 ####[facility] [address] [place], [address] RDW SD 48.7 fl High 35.1-43.9 [facility] Comment on above: Performed By: #### L 501.9520, L100.0100, L501.2300, L500.2500, L501.5200 ####[facility] [address] [place], [address] WBC (Bld) [#/Vol] 8.4 10*3/uL Normal 4.4-11.0 [facility] Comment on above: Performed By: #### L 501.9520, L100.0100, L501.2300, L500.2500, L501.5200 ####[facility] [address] [place], [address] Clarity (U)Ordered By: Betty Mike on 08-30-2024 Urine clarity Clear Clear [facility] Color (U)Ordered By: Betty willoughby on 08-30-2024 Urine color determination Yellow Yellow [facility] Intact parathyroid hormone ( iPTH) measurementOrdered By: Betty Mike on 08-30-2024 Intact parathyroid hormone (iPTH) measurement 56.8 pg/mL 18.4-80.1 [facility] Leukocyte esterase Test stri p Ql (U)Ordered By: Betty Mike on 08-30-2024 Urine leukocyte esterase detection by dipstick 25 /ul High Negative [facility] Magnesiumon 08-30-2024 Magnesium [Mass/Vol] 2.0 mg/dL Normal 1.6-2.6 [facility] Comment on above: Performed By: #### L 501.9520, L100.0100, L501.2300, L500.2500, L501.5200 ####[facility] [address] [place], [address] Microscopic analysis of urin e for red blood cells (RBC)Ordered By: Betty Mike on 08-30-2024 Microscopic analysis of urine for red blood cells (RBC) 0-5 SEEN /hpf 5-10 [facility] PTHINon 08-30-2024 PTH 56.8 pg/mL Normal 18.4-80.1 [facility] Comment on above: Performed By: #### L 509.1000 ####[facility] [address] [place], [address] Phosphoruson 08-30-2024 Phosphate [Mass/Vol] 2.9 mg/dL Normal 2.5-4.9 [facility] Comment on above: Performed By: #### L 501.9520, L100.0100, L501.2300, L500.2500, L501.5200 ####[facility] [address] [place], [address] Protein Test strip Ql (U)Ord ered By: Betty Mike on 08-30-2024 Urine protein assay by test strip, semi-quantitative 15 mg/dl High Negative [facility] RESPIRATORY PANEL MOLECULARo n 08-30-2024 RP PANEL Normal [facility] Comment on above: Performed By: #### M 100.638 ####[facility] [address] [place], [address] Specific gravity (U) [Rel de nsity]Ordered By: Betty Mike on 08-30-2024 Urine specific gravity measurement 1.020 1.002-1.030 [facility] TSH QnOrdered By: Betty mcdowell on 08-30-2024 Serum or plasma thyroid stimulating hormone (TSH) measurement (units/volume) 1.470 uIU/mL 0.358-3.740 [facility] Thyroid Stim Hormone (TSH)on 08-30-2024 TSH 1.470 uIU/mL Normal 0.358-3.740 [facility] Comment on above: Performed By: #### L 501.9520, L100.0100, L501.2300, L500.2500, L501.5200 ####[facility] [address] [place], [address] Urinalysis, Completeon 08-30 BACTERIA RARE Normal None Seen [facility] Comment on above: Order Comment: CLEAN CATCH Performed By: #### L 400.0001 ####[facility] [address] [place], [address] EPI,SQUAMOUS 0-5 SEEN Normal 5-10 [facility] Comment on above: Order Comment: CLEAN CATCH Performed By: #### L 400.0001 ####[facility] [address] [place], [address] RBC 0-5 SEEN Normal 0-5 [facility] Comment on above: Order Comment: CLEAN CATCH Performed By: #### L 400.0001 ####[facility] [address] [place], [address] Mucus Ql (Urine sed) 0 SEEN Normal [facility] Comment on above: Order Comment: CLEAN CATCH Performed By: #### L 400.0001 ####[facility] [address] [place], [address] WBC 0 SEEN Normal 0-5 [facility] Comment on above: Order Comment: CLEAN CATCH Performed By: #### L 400.0001 ####[facility] [address] [place], [address] Urine glucose detectionOrder ed By: Betty Mike on 08-30-2024 Urine glucose detection Normal mg/dl Normal [facility] Urine total bilirubin detect ion by test stripOrdered By: Betty Mike on 08-30-2024 Urine total bilirubin detection by test strip Negative Negative [facility] White blood cell countOrdere d By: Betty Mike on 08-30-2024 White blood cell count 0 SEEN /hpf [facility] pH (U)Ordered By: Betty mcdowell on 08-30-2024 Urine pH 6.0 5.0 - 8.0 [facility] 12 Lead EKGon 08-29-2024 12 Lead EKG Normal [facility] 47-SC-Rvyddtj DOrdered By: Kye Mike on 08-29-2024 40-XV-Iioegwe D 38.0 ng/mL [facility] Basic Metabolic Profile (BMP )on 08-29-2024 BUN/CRE 20.2 RATIO High 10-20 [facility] Comment on above: Performed By: #### L 500.2500, L100.0100 ####[facility] [address] [place], [address] CA,Total 11.2 mg/dL High 8.5-10.1 [facility] Comment on above: Performed By: #### L 500.2500, L100.0100 ####[facility] [address] [place], [address] Chloride [Moles/Vol] 105 mmol/L Normal 98-107 [facility] Comment on above: Performed By: #### L 500.2500, L100.0100 ####[facility] [address] [place], [address] CO2 [Moles/Vol] 28.0 mmol/L Normal 21.0-32.0 [facility] Comment on above: Performed By: #### L 500.2500, L100.0100 ####[facility] [address] [place], [address] Creatinine [Mass/Vol] 0.64 mg/dL Normal 0.55-1.02 [facility] Comment on above: Result Comment: The validity of the calculated GFR GFRAA in patients over70 years has not been determined. Clinical correlation isessential. Performed By: #### L 500.2500, L100.0100 ####[facility] [address] [place], [address] EST GFR - AA 113 mL/min Normal >60 [facility] Comment on above: Result Comment: Afri can Thai GFR Calc Performed By: #### L 500.2500, L100.0100 ####[facility] [address] [place], [address] GAP 8 Normal 5-15 [facility] Comment on above: Performed By: #### L 500.2500, L100.0100 ####[facility] [address] [place], [address] GFR/1.73 sq M.predicted among non-blacks MDRD (S/P/Bld) [Vol rate/Area] 94 mL/min/{1.73_m2} Normal >60 [facility] Comment on above: Result Comment: Non- GFR Calc Performed By: #### L 500.2500, L100.0100 ####[facility] [address] [place], [address] Glucose [Mass/Vol] 101 mg/dL Normal 74-106 [facility] Comment on above: Result Comment: Fast ing Glucose result from 100 to 125 mg/dLsuggests IMPAIRED HOMEOSTASIS per A.D.A. criteria. Performed By: #### L 500.2500, L100.0100 ####[facility] [address] [place], [address] Potassium [Moles/Vol] 3.7 mmol/L Normal 3.5-5.1 [facility] Comment on above: Performed By: #### L 500.2500, L100.0100 ####[facility] [address] [place], [address] Sodium [Moles/Vol] 141 mmol/L Normal 136-145 [facility] Comment on above: Performed By: #### L 500.2500, L100.0100 ####[facility] [address] [place], [address] Urea nitrogen [Mass/Vol] 13 mg/dL Normal 7-18 [facility] Comment on above: Performed By: #### L 500.2500, L100.0100 ####[facility] [address] [place], [address] CBC W/Diff, Automatedon 02-0 7-2024 Absolute Lymph 2.03 X10 3/uL Normal 0.83-4.51 [facility] Comment on above: Performed By: #### L 500.2500, L100.0100 ####[facility] [address] [place], [address] Absolute Neut 5.5 X10 3/uL Normal 2.0-7.7 [facility] Comment on above: Performed By: #### L 500.2500, L100.0100 ####[facility] [address] [place], [address] Basophils/100 WBC (Bld) 1.3 % High 0-[address] [facility] Comment on above: Performed By: #### L 500.2500, L100.0100 ####[facility] [address] [place], [address] Eosinophils/100 WBC (Bld) 3.7 % Normal 0-5 [facility] Comment on above: Performed By: #### L 500.2500, L100.0100 ####[facility] [address] [place], [address] Erythrocyte distribution width (RBC) [Ratio] 14.6 % Normal 11.6-14.6 [facility] Comment on above: Performed By: #### L 500.2500, L100.0100 ####[facility] [address] [place], [address] Hematocrit (Bld) [Volume fraction] 45.9 % Normal 37-47 [facility] Comment on above: Performed By: #### L 500.2500, L100.0100 ####[facility] [address] [place], [address] Hemoglobin (Bld) [Mass/Vol] 14.4 g/dL Normal 12.0-15.0 [facility] Comment on above: Performed By: #### L 500.2500, L100.0100 ####[facility] [address] [place], [address] IG% 0.400 Normal 0.0-0.9 [facility] Comment on above: Result Comment: IG% - Immature Granulocytes (promyelocytes, myelocytes andmetamyelocytes) > 1% indicates that a LEFT SHIFT is Present. Performed By: #### L 500.2500, L100.0100 ####[facility] [address] [place], [address] Lymphocytes/100 WBC (Bld) 22.8 % Normal 19-41 [facility] Comment on above: Performed By: #### L 500.2500, L100.0100 ####[facility] [address] [place], [address] MCH (RBC) [Entitic mass] 27.4 pg Normal 27.0-32.0 [facility] Comment on above: Performed By: #### L 500.2500, L100.0100 ####[facility] [address] [place], [address] MCHC (RBC) [Mass/Vol] 31.4 g/dL Low 32-36 [facility] Comment on above: Performed By: #### L 500.2500, L100.0100 ####[facility] [address] [place], [address] MCV (RBC) [Entitic vol] 87.4 fL Normal 81-[address] [facility] Comment on above: Performed By: #### L 500.2500, L100.0100 ####[facility] [address] [place], [address] Monocytes/100 WBC (Bld) 9.7 % Normal 0-10 [facility] Comment on above: Performed By: #### L 500.2500, L100.0100 ####[facility] [address] [place], [address] Neutrophils/100 WBC (Bld) 62.1 % Normal 47-70 [facility] Comment on above: Performed By: #### L 500.2500, L100.0100 ####[facility] [address] [place], [address] Nucleated RBC (Bld) [#/Vol] 0 10*3/uL Normal 0-5 [facility] Comment on above: Performed By: #### L 500.2500, L100.0100 ####[facility] [address] [place], [address] Platelet mean volume (Bld) [Entitic vol] 9.6 fL Normal 6.2-12.0 [facility] Comment on above: Performed By: #### L 500.2500, L100.0100 ####[facility] [address] [place], [address] Platelets (Bld) [#/Vol] 369 10*3/uL Normal 150-450 [facility] Comment on above: Performed By: #### L 500.2500, L100.0100 ####[facility] [address] [place], [address] RBC (Bld) [#/Vol] 5.25 10*6/uL Normal 4.2-5.[address] [facility] Comment on above: Performed By: #### L 500.2500, L100.0100 ####[facility] [address] [place], [address] RDW SD 46.5 fl High 35.1-43.9 [facility] Comment on above: Performed By: #### L 500.2500, L100.0100 ####[facility] [address] [place], [address] WBC (Bld) [#/Vol] 8.9 10*3/uL Normal 4.4-11.0 [facility] Comment on above: Performed By: #### L 500.2500, L100.0100 ####[facility] [address] [place], [address] Chest 1 View (Portable)on Chest 1 View (Portable) Normal [facility] Emergency Department Summary on 08-29-2024 Emergency Department Summary Normal [facility] H AND P Exam - Hospitaliston 08-29-2024 H&P Exam - Hospitalist Normal [facility] L501.4020on 08-29-2024 TROPONIN-I HS 25 pg/mL Normal 3.0-54.0 [facility] Comment on above: Result Comment: Plea se Note: New Test Units and Gender Specific Reference Ranges. For more information see Policy Stat Procedure Kake High Sensitivity Troponin (TNIH) and attachments. Performed By: #### L 501.4020 ####[facility] [address] [place], [address] L501.5425on 08-29-2024 TROPONIN-I HS 24 pg/mL Normal 3.0-54.0 [facility] Comment on above: Order Comment: 1Y Result Comment: Plea se Note: New Test Units and Gender Specific Reference Ranges. For more information see Policy Stat Procedure Kake High Sensitivity Troponin (TNIH) and attachments. Performed By: #### L 501.5425 ####[facility] [address] [place], [place], [address] Troponin IOrdered By: Violeta Rodríguez on 08-29-2024 Troponin I 25 pg/mL 3.0-54.0 [facility] Vitamin D,25 Hydroxyon 08-29 Vitamin D 25-OH 38.0 ng/mL Normal [facility] Comment on above: Result Comment: Haleigh min D 25(OH) Status Range Deficiency <20 ng/mL (50nmol/L) Insufficiency 20 - 30 ng/mL (50 - 75 nmol/L) Sufficiency 30 - 100 ng/mL (75 - 250 nmol/L) Toxicity >100 ng/mL (>250 nmol/L) Performed By: #### L 506.1000 ####[facility] [address] [place], [place], [address] 12 Lead EKGon 08-28-2024 12 Lead EKG Normal [facility] Absolute neutrophil countOrd ered By: ED PROVIDER on 08-28-2024 Absolute neutrophil count 5.7 X10^3/uL 2.0-7.7 [facility] Basic Metabolic Profile (BMP )on 08-28-2024 BUN/CRE 24.4 RATIO High 10-20 [facility] Comment on above: Performed By: #### L 501.5425, L500.2500, L100.0100 ####[facility] [address] [place], [address] CA,Total 11.8 mg/dL High 8.5-10.1 [facility] Comment on above: Performed By: #### L 501.5425, L500.2500, L100.0100 ####[facility] [address] [place], [address] Chloride [Moles/Vol] 104 mmol/L Normal 98-107 [facility] Comment on above: Performed By: #### L 501.5425, L500.2500, L100.0100 ####[facility] [address] [place], [address] CO2 [Moles/Vol] 28.0 mmol/L Normal 21.0-32.0 [facility] Comment on above: Performed By: #### L 501.5425, L500.2500, L100.0100 ####[facility] [address] [place], [address] Creatinine [Mass/Vol] 0.66 mg/dL Normal 0.55-1.02 [facility] Comment on above: Result Comment: The validity of the calculated GFR GFRAA in patients over70 years has not been determined. Clinical correlation isessential. Performed By: #### L 501.5425, L500.2500, L100.0100 ####[facility] [address] [place], [address] ECRCL 49.04 ml/min Normal [facility] Comment on above: Performed By: #### L 501.5425, L500.2500, L100.0100 ####[facility] [address] [place], [address] EST GFR - AA 111 mL/min Normal >60 [facility] Comment on above: Result Comment: Afri can Thai GFR Calc Performed By: #### L 501.5425, L500.2500, L100.0100 ####[facility] [address] [place], [address] GAP 8 Normal 5-15 [facility] Comment on above: Performed By: #### L 501.5425, L500.2500, L100.0100 ####[facility] [address] [place], [address] GFR/1.73 sq M.predicted among non-blacks MDRD (S/P/Bld) [Vol rate/Area] 92 mL/min/{1.73_m2} Normal >60 [facility] Comment on above: Result Comment: Non- GFR Calc Performed By: #### L 501.5425, L500.2500, L100.0100 ####[facility] [address] [place], [address] Glucose [Mass/Vol] 105 mg/dL Normal 74-106 [facility] Comment on above: Result Comment: Fast ing Glucose result from 100 to 125 mg/dLsuggests IMPAIRED HOMEOSTASIS per A.D.A. criteria. Performed By: #### L 501.5425, L500.2500, L100.0100 ####[facility] [address] [place], [address] Potassium [Moles/Vol] 3.5 mmol/L Normal 3.5-5.1 [facility] Comment on above: Performed By: #### L 501.5425, L500.2500, L100.0100 ####[facility] [address] [place], [address] Sodium [Moles/Vol] 140 mmol/L Normal 136-145 [facility] Comment on above: Performed By: #### L 501.5425, L500.2500, L100.0100 ####[facility] [address] [place], [address] Urea nitrogen [Mass/Vol] 16 mg/dL Normal 7-18 [facility] Comment on above: Performed By: #### L 501.5425, L500.2500, L100.0100 ####[facility] [address] [place], [address] Basophil percentageOrdered B y: ED PROVIDER on 08-28-2024 Basophil percentage 1.3 % High 0-[address] [facility] Blood urea nitrogen (BUN)/cr eatinine ratioOrdered By: Violeta Rodríguez on 08-28-2024 Blood urea nitrogen (BUN)/creatinine ratio 24.4 RATIO High 10-20 [facility] CBC W/Diff, Automatedon 02-0 Absolute Lymph 1.81 X10 3/uL Normal 0.83-4.51 [facility] Comment on above: Performed By: #### L 501.5425, L500.2500, L100.0100 ####[facility] [address] [place], [address] Absolute Neut 5.7 X10 3/uL Normal 2.0-7.7 [facility] Comment on above: Performed By: #### L 501.5425, L500.2500, L100.0100 ####[facility] [address] [place], [address] Basophils/100 WBC (Bld) 1.3 % High 0-[address] [facility] Comment on above: Performed By: #### L 501.5425, L500.2500, L100.0100 ####[facility] [address] [place], [address] Eosinophils/100 WBC (Bld) 3.8 % Normal 0-5 [facility] Comment on above: Performed By: #### L 501.5425, L500.2500, L100.0100 ####[facility] [address] [place], [address] Erythrocyte distribution width (RBC) [Ratio] 14.6 % Normal 11.6-14.6 [facility] Comment on above: Performed By: #### L 501.5425, L500.2500, L100.0100 ####[facility] [address] [place], [address] Hematocrit (Bld) [Volume fraction] 44.9 % Normal 37-47 [facility] Comment on above: Performed By: #### L 501.5425, L500.2500, L100.0100 ####[facility] [address] [place], [address] Hemoglobin (Bld) [Mass/Vol] 14.5 g/dL Normal 12.0-15.0 [facility] Comment on above: Performed By: #### L 501.5425, L500.2500, L100.0100 ####[facility] [address] [place], [address] IG% 0.700 Normal 0.0-0.9 [facility] Comment on above: Result Comment: IG% - Immature Granulocytes (promyelocytes, myelocytes andmetamyelocytes) > 1% indicates that a LEFT SHIFT is Present. Performed By: #### L 501.5425, L500.2500, L100.0100 ####[facility] [address] [place], [address] Lymphocytes/100 WBC (Bld) 20.0 % Normal 19-41 [facility] Comment on above: Performed By: #### L 501.5425, L500.2500, L100.0100 ####[facility] [address] [place], [address] MCH (RBC) [Entitic mass] 28.0 pg Normal 27.0-32.0 [facility] Comment on above: Performed By: #### L 501.5425, L500.2500, L100.0100 ####[facility] [address] [place], [address] MCHC (RBC) [Mass/Vol] 32.3 g/dL Normal 32-36 [facility] Comment on above: Performed By: #### L 501.5425, L500.2500, L100.0100 ####[facility] [address] [place], [address] MCV (RBC) [Entitic vol] 86.8 fL Normal 81-[address] [facility] Comment on above: Performed By: #### L 501.5425, L500.2500, L100.0100 ####[facility] [address] [place], [address] Monocytes/100 WBC (Bld) 10.8 % High 0-10 [facility] Comment on above: Performed By: #### L 501.5425, L500.2500, L100.0100 ####[facility] [address] [place], [address] Neutrophils/100 WBC (Bld) 63.4 % Normal 47-70 [facility] Comment on above: Performed By: #### L 501.5425, L500.2500, L100.0100 ####[facility] [address] [place], [address] Nucleated RBC (Bld) [#/Vol] 0 10*3/uL Normal 0-5 [facility] Comment on above: Performed By: #### L 501.5425, L500.2500, L100.0100 ####[facility] [address] [place], [address] Platelet mean volume (Bld) [Entitic vol] 10.0 fL Normal 6.2-12.0 [facility] Comment on above: Performed By: #### L 501.5425, L500.2500, L100.0100 ####[facility] [address] [place], [address] Platelets (Bld) [#/Vol] 369 10*3/uL Normal 150-450 [facility] Comment on above: Performed By: #### L 501.5425, L500.2500, L100.0100 ####[facility] [address] [place], [address] RBC (Bld) [#/Vol] 5.17 10*6/uL Normal 4.2-5.[address] [facility] Comment on above: Performed By: #### L 501.5425, L500.2500, L100.0100 ####[facility] [address] [place], [address] RDW SD 46.1 fl High 35.1-43.9 [facility] Comment on above: Performed By: #### L 501.5425, L500.2500, L100.0100 ####[facility] [address] [place], [address] WBC (Bld) [#/Vol] 9.0 10*3/uL Normal 4.4-11.0 [facility] Comment on above: Performed By: #### L 501.5425, L500.2500, L100.0100 ####[facility] [address] [place], [address] CTA Chest W/WO Contraston CTA Chest W/WO Contrast Normal [facility] Calcium [Mass/Vol]Ordered By : Violeta Rodríguez on 08-28-2024 Serum or plasma calcium measurement (mass/volume) 11.8 mg/dL High 8.5-10.1 [facility] Carbon dioxide measurementOr dered By: Violeta Rodríguez on 08-28-2024 Carbon dioxide measurement 28.0 mmol/L 21.0-32.0 [facility] Chest 1 View (Portable)on Chest 1 View (Portable) Normal [facility] Chloride measurementOrdered By: Violeta Rodríguez on 08-28-2024 Chloride measurement 104 mmol/L 98-107 [facility] Creatinine [Mass/Vol]Ordered By: Violeta Rodríguez on 08-28-2024 Serum or plasma creatinine measurement (mass/volume) 0.66 mg/dL 0.55-1.02 [facility] D-Dimer Quantitative (DVT/PE )on 08-28-2024 D-DIMER QUANT 1.65 FEU/ug/m Invalid Interpretation Code 0.27-0.49 [facility] Comment on above: Result Comment: D-Di miguel ELEVATED (>0.49): Additional studies and clinicalassessments are indicated to conclude diagnosis of:Deep Vein Thrombosis (DVT) or Pulmonary Embolism (PE)CRITICAL VALUE CALLED TO HGOQCMPWTORYSBK66/06/25 124Rajesh Zepeda.RESULTS READ BACK BY SAME. Performed By: #### L 300.8000 ####[facility] [address] [place], [address] D-dimer measurement for deep venous thrombosisOrdered By: Violeta Rodríguez on 08-28-2024 D-dimer measurement for deep venous thrombosis 1.65 FEU/ug/m High 0.27-0.49 [facility] Emergency Department Summary on 08-28-2024 Emergency Department Summary Normal [facility] Eosinophil percentageOrdered By: ED PROVIDER on 08-28-2024 Eosinophil percentage 3.8 % 0-5 [facility] Erythrocyte distribution wid th (RBC) [Ratio]Ordered By: ED PROVIDER on 08-28-2024 Erythrocyte distribution width ratio 14.6 % 11.6-14.6 [facility] Erythrocyte distribution width standard deviation 46.1 fl High 35.1-43.9 [facility] Estimated glomerular filtrat ion rate (GFR) AmericanOrdered By: Violeta Rodríguez on 08-28-2024 Estimated glomerular filtration rate (GFR) 111 mL/min >60 [facility] Estimation of creatinine hernando aranceOrdered By: Violeta Rodríguez on 08-28-2024 Estimation of creatinine clearance 49.04 ml/min [facility] Glomerular filtration rate ( GFR) estimationOrdered By: Violetajuana Rodríguez on 08-28-2024 Glomerular filtration rate (GFR) estimation 92 mL/min >60 [facility] Glucose measurementOrdered B y: Violeta Rodríguez on 08-28-2024 Glucose measurement 105 mg/dL 74-[address] [facility] Hematocrit Auto (Bld) [Volum e fraction]Ordered By: ED PROVIDER on 08-28-2024 Automated blood hematocrit (percentage) 44.9 % 37-47 [facility] Hemoglobin measurementOrdere d By: ED PROVIDER on 08-28-2024 Hemoglobin measurement 14.5 g/dL 12.0-15.0 [facility] Immature granulocytes/100 WB C Auto (Bld)Ordered By: ED PROVIDER on 08-28-2024 Automated immature granulocyte percentage 0.700 % 0.0-0.9 [facility] L501.4020on 08-28-2024 TROPONIN-I HS 18 pg/mL Normal 3.0-54.0 [facility] Comment on above: Result Comment: Plea se Note: New Test Units and Gender Specific Reference Ranges. For more information see Policy Stat Procedure [place] High Sensitivity Troponin (TNIH) and attachments. Performed By: #### L 501.4020 ####[facility] [address] [place], [address] L501.5425on 08-28-2024 TROPONIN-I HS 19 pg/mL Normal 3.0-54.0 [facility] Comment on above: Order Comment: 1Y Result Comment: Plea se Note: New Test Units and Gender Specific Reference Ranges. For more information see Policy Stat Procedure [place] High Sensitivity Troponin (TNIH) and attachments. Performed By: #### L 501.5425, L500.2500, L100.0100 ####[facility] [address] [place], [address] Lymphocytes Auto (Unsp spec) [#/Vol]Ordered By: ED PROVIDER on 08-28-2024 Absolute lymphocyte count 1.81 X10^3/uL 0.83-4.51 [facility] Lymphocytes/100 WBC Auto (Un sp spec)Ordered By: ED PROVIDER on 08-28-2024 Automated lymphocyte count as percentage of total leukocytes 20.0 % 19-41 [facility] M100.678on 08-28-2024 M100.678 Pending SARS-CoV-2 (COVID 19) Negative INFLUENZA A Negative INFLUENZA B Negative RSV PCR Negative Normal [facility] Comment on above: Performed By: #### M 100.758 ####[facility] [address] [place], [address] MCV (RBC) [Entitic vol]Order ed By: ED PROVIDER on 08-28-2024 MCV (mean corpuscular volume) determination 86.8 fL 81-99 [facility] Mean corpuscular hemoglobin (MCH) determinationOrdered By: ED PROVIDER on 08-28-2024 Mean corpuscular hemoglobin (MCH) determination 28.0 pg 27.0-32.0 [facility] Mean corpuscular hemoglobin concentration (MCHC) determinationOrdered By: ED PROVIDER on 08-28-2024 Mean corpuscular hemoglobin concentration (MCHC) determination 32.3 g/dL 32-36 [facility] Mean platelet volume determi nationOrdered By: ED PROVIDER on 08-28-2024 Mean platelet volume determination 10.0 fl 6.2-12.0 [facility] Monocyte percentageOrdered B y: ED PROVIDER on 08-28-2024 Monocyte percentage 10.8 % High 0-[address] [facility] Neutrophil percentageOrdered By: ED PROVIDER on 08-28-2024 Neutrophil percentage 63.4 % 47-70 [facility] Nucleated red blood cell per centageOrdered By: ED PROVIDER on 08-28-2024 Nucleated red blood cell percentage 0 % 0-5 [facility] Platelet countOrdered By: ED PROVIDER on 08-28-2024 Platelet count 369 K/mm3 150-450 [facility] Potassium measurementOrdered By: Violeta Rodríguez on 08-28-2024 Potassium measurement 3.5 mmol/L 3.5-5.1 [facility] RBC Auto (Bld) [#/Vol]Ordere d By: ED PROVIDER on 08-28-2024 Automated blood erythrocyte count 5.17 M/mm3 4.2-5.4 [facility] Serum anion gap measurementO rdered By: Violeta Rodríguez on 08-28-2024 Serum anion gap measurement 8 5-15 [facility] Sodium levelOrdered By: Jose Rodríguez on 08-28-2024 Sodium level 140 mmol/L 136-145 [facility] Troponin IOrdered By: Violeta Rodríguez on 08-28-2024 Troponin I 18 pg/mL 3.0-54.0 [facility] Urea nitrogen [Mass/Vol]Orde red By: Violeta Rodríguez on 08-28-2024 Serum or plasma urea nitrogen measurement (mass/volume) 16 mg/dL - [facility] White blood cell (WBC) count Ordered By: ED PROVIDER on 08-28-2024 White blood cell (WBC) count 9.0 K/mm3 4.4-11.0 [facility] Basic Metabolic Profile (BMP )on 08-21-2024 BUN Normal - [facility] Comment on above: Result Comment: Canc elled via OM: Order cancelled - Patient discharged Performed By: #### L 500.2500, L100.0100 ####[facility] [address] [place], [address] BUN/CRE Normal 10-20 [facility] Comment on above: Result Comment: Canc elled via OM: Order cancelled - Patient discharged Performed By: #### L 500.2500, L100.0100 ####[facility] [address] [place], [address] CA,Total Normal 8.5-10.1 [facility] Comment on above: Result Comment: Canc elled via OM: Order cancelled - Patient discharged Performed By: #### L 500.2500, L100.0100 ####[facility] [address] [place], [address] CL Normal 98-107 [facility] Comment on above: Result Comment: Canc elled via OM: Order cancelled - Patient discharged Performed By: #### L 500.2500, L100.0100 ####[facility] [address] [place], [address] CO2 Normal 21.0-32.0 [facility] Comment on above: Result Comment: Canc elled via OM: Order cancelled - Patient discharged Performed By: #### L 500.2500, L100.0100 ####[facility] [address] [place], [address] CREAT,SERUM Normal 0.55-1.02 [facility] Comment on above: Result Comment: Canc elled via OM: Order cancelled - Patient discharged Performed By: #### L 500.2500, L100.0100 ####[facility] [address] [place], [address] EST GFR Normal >60 [facility] Comment on above: Result Comment: Canc elled via OM: Order cancelled - Patient discharged Performed By: #### L 500.2500, L100.0100 ####[facility] [address] [place], [address] EST GFR - AA Normal >60 [facility] Comment on above: Result Comment: Canc elled via OM: Order cancelled - Patient discharged Performed By: #### L 500.2500, L100.0100 ####[facility] [address] [place], [address] GAP Normal 5-15 [facility] Comment on above: Result Comment: Canc elled via OM: Order cancelled - Patient discharged Performed By: #### L 500.2500, L100.0100 ####[facility] [address] [place], [address] GLU Normal 74-106 [facility] Comment on above: Result Comment: Canc elled via OM: Order cancelled - Patient discharged Performed By: #### L 500.2500, L100.0100 ####[facility] [address] [place], [address] Potassium Normal 3.5-5.1 [facility] Comment on above: Result Comment: Canc elled via OM: Order cancelled - Patient discharged Performed By: #### L 500.2500, L100.0100 ####[facility] [address] [place], [address] Basic Metabolic Profile (BMP) Normal 136-145 [facility] Comment on above: Result Comment: Canc elled via OM: Order cancelled - Patient discharged Performed By: #### L 500.2500, L100.0100 ####[facility] [address] [place], [address] CBC W/Diff, Automatedon -3 0-2024 Absolute Neut Normal 2.0-7.7 [facility] Comment on above: Result Comment: Canc elled via OM: Order cancelled - Patient discharged Performed By: #### L 500.2500, L100.0100 ####[facility] [address] [place], [address] HCT Normal 37-47 [facility] Comment on above: Result Comment: Canc elled via OM: Order cancelled - Patient discharged Performed By: #### L 500.2500, L100.0100 ####[facility] [address] [place], [address] HGB Normal 12.0-15.0 [facility] Comment on above: Result Comment: Canc elled via OM: Order cancelled - Patient discharged Performed By: #### L 500.2500, L100.0100 ####[facility] [address] [place], [address] MCH Normal 27.0-32.0 [facility] Comment on above: Result Comment: Canc elled via OM: Order cancelled - Patient discharged Performed By: #### L 500.2500, L100.0100 ####[facility] [address] [place], [address] MCHC Normal 32-36 [facility] Comment on above: Result Comment: Canc elled via OM: Order cancelled - Patient discharged Performed By: #### L 500.2500, L100.0100 ####[facility] [address] [place], [address] MCV Normal 81-99 [facility] Comment on above: Result Comment: Canc elled via OM: Order cancelled - Patient discharged Performed By: #### L 500.2500, L100.0100 ####[facility] [address] [place], [address] NEUT% Normal 47-70 [facility] Comment on above: Result Comment: Canc elled via OM: Order cancelled - Patient discharged Performed By: #### L 500.2500, L100.0100 ####[facility] [address] [place], [address] PLT Normal 150-450 [facility] Comment on above: Result Comment: Canc elled via OM: Order cancelled - Patient discharged Performed By: #### L 500.2500, L100.0100 ####[facility] [address] [place], [address] RBC Normal 4.2-5.4 [facility] Comment on above: Result Comment: Canc elled via OM: Order cancelled - Patient discharged Performed By: #### L 500.2500, L100.0100 ####[facility] [address] [place], [address] RDW CV Normal 11.6-14.6 [facility] Comment on above: Result Comment: Canc elled via OM: Order cancelled - Patient discharged Performed By: #### L 500.2500, L100.0100 ####[facility] [address] [place], [address] RDW SD Normal 35.1-43.9 [facility] Comment on above: Result Comment: Canc elled via OM: Order cancelled - Patient discharged Performed By: #### L 500.2500, L100.0100 ####[facility] [address] [place], [address] WBC Normal 4.4-11.0 [facility] Comment on above: Result Comment: Canc elled via OM: Order cancelled - Patient discharged Performed By: #### L 500.2500, L100.0100 ####[facility] [address] [place], [address] Basic Metabolic Profile (BMP )on 08-20-2024 BUN Normal 7-18 [facility] Comment on above: Result Comment: Canc elled via OM: Order cancelled - Patient discharged Performed By: #### L 100.0100, L500.2500 ####[facility] [address] [place], [address] BUN/CRE Normal 10-20 [facility] Comment on above: Result Comment: Canc elled via OM: Order cancelled - Patient discharged Performed By: #### L 100.0100, L500.2500 ####[facility] [address] [place], [address] CA,Total Normal 8.5-10.1 [facility] Comment on above: Result Comment: Canc elled via OM: Order cancelled - Patient discharged Performed By: #### L 100.0100, L500.2500 ####[facility] [address] [place], [address] CL Normal 98-107 [facility] Comment on above: Result Comment: Canc elled via OM: Order cancelled - Patient discharged Performed By: #### L 100.0100, L500.2500 ####[facility] [address] [place], [address] CO2 Normal 21.0-32.0 [facility] Comment on above: Result Comment: Canc elled via OM: Order cancelled - Patient discharged Performed By: #### L 100.0100, L500.2500 ####[facility] [address] [place], [address] CREAT,SERUM Normal 0.55-1.02 [facility] Comment on above: Result Comment: Canc elled via OM: Order cancelled - Patient discharged Performed By: #### L 100.0100, L500.2500 ####[facility] [address] [place], [address] EST GFR Normal >60 [facility] Comment on above: Result Comment: Canc elled via OM: Order cancelled - Patient discharged Performed By: #### L 100.0100, L500.2500 ####[facility] [address] [place], [address] EST GFR - AA Normal >60 [facility] Comment on above: Result Comment: Canc elled via OM: Order cancelled - Patient discharged Performed By: #### L 100.0100, L500.2500 ####[facility] [address] [place], [address] GAP Normal 5-15 [facility] Comment on above: Result Comment: Canc elled via OM: Order cancelled - Patient discharged Performed By: #### L 100.0100, L500.2500 ####[facility] [address] [place], [address] GLU Normal 74-106 [facility] Comment on above: Result Comment: Canc elled via OM: Order cancelled - Patient discharged Performed By: #### L 100.0100, L500.2500 ####[facility] [address] [place], [address] Potassium Normal 3.5-5.1 [facility] Comment on above: Result Comment: Canc elled via OM: Order cancelled - Patient discharged Performed By: #### L 100.0100, L500.2500 ####[facility] [address] [place], [address] Basic Metabolic Profile (BMP) Normal 136-145 [facility] Comment on above: Result Comment: Canc elled via OM: Order cancelled - Patient discharged Performed By: #### L 100.0100, L500.2500 ####[facility] [address] [place], [address] CBC W/Diff, Automatedon 01-2 Absolute Neut Normal 2.0-7.7 [facility] Comment on above: Result Comment: Canc elled via OM: Order cancelled - Patient discharged Performed By: #### L 100.0100, L500.2500 ####[facility] [address] [place], [address] HCT Normal 37-47 [facility] Comment on above: Result Comment: Canc elled via OM: Order cancelled - Patient discharged Performed By: #### L 100.0100, L500.2500 ####[facility] [address] [place], [address] HGB Normal 12.0-15.0 [facility] Comment on above: Result Comment: Canc elled via OM: Order cancelled - Patient discharged Performed By: #### L 100.0100, L500.2500 ####[facility] [address] [place], [address] MCH Normal 27.0-32.0 [facility] Comment on above: Result Comment: Canc elled via OM: Order cancelled - Patient discharged Performed By: #### L 100.0100, L500.2500 ####[facility] [address] [place], [address] MCHC Normal 32-36 [facility] Comment on above: Result Comment: Canc elled via OM: Order cancelled - Patient discharged Performed By: #### L 100.0100, L500.2500 ####[facility] [address] [place], [address] MCV Normal 81-99 [facility] Comment on above: Result Comment: Canc elled via OM: Order cancelled - Patient discharged Performed By: #### L 100.0100, L500.2500 ####[facility] [address] [place], [address] NEUT% Normal 47-70 [facility] Comment on above: Result Comment: Canc elled via OM: Order cancelled - Patient discharged Performed By: #### L 100.0100, L500.2500 ####[facility] [address] [place], [address] PLT Normal 150-450 [facility] Comment on above: Result Comment: Canc elled via OM: Order cancelled - Patient discharged Performed By: #### L 100.0100, L500.2500 ####[facility] [address] [place], [address] RBC Normal 4.2-5.4 [facility] Comment on above: Result Comment: Canc elled via OM: Order cancelled - Patient discharged Performed By: #### L 100.0100, L500.2500 ####[facility] [address] [place], [address] RDW CV Normal 11.6-14.6 [facility] Comment on above: Result Comment: Canc elled via OM: Order cancelled - Patient discharged Performed By: #### L 100.0100, L500.2500 ####[facility] [address] [place], [address] RDW SD Normal 35.1-43.9 [facility] Comment on above: Result Comment: Canc elled via OM: Order cancelled - Patient discharged Performed By: #### L 100.0100, L500.2500 ####[facility] [address] [place], [address] WBC Normal 4.4-11.0 [facility] Comment on above: Result Comment: Canc elled via OM: Order cancelled - Patient discharged Performed By: #### L 100.0100, L500.2500 ####[facility] [address] [place], [address] Basic Metabolic Profile (BMP )on 08-19-2024 BUN Normal 7-18 [facility] Comment on above: Result Comment: Canc elled via OM: Order cancelled - Patient discharged Performed By: #### L 500.2500, L100.0100 ####[facility] [address] [place], [address] BUN/CRE Normal 10-20 [facility] Comment on above: Result Comment: Canc elled via OM: Order cancelled - Patient discharged Performed By: #### L 500.2500, L100.0100 ####[facility] [address] [place], [address] CA,Total Normal 8.5-10.1 [facility] Comment on above: Result Comment: Canc elled via OM: Order cancelled - Patient discharged Performed By: #### L 500.2500, L100.0100 ####[facility] [address] [place], [address] CL Normal 98-107 [facility] Comment on above: Result Comment: Canc elled via OM: Order cancelled - Patient discharged Performed By: #### L 500.2500, L100.0100 ####[facility] [address] [place], [address] CO2 Normal 21.0-32.0 [facility] Comment on above: Result Comment: Canc elled via OM: Order cancelled - Patient discharged Performed By: #### L 500.2500, L100.0100 ####[facility] [address] [place], [address] CREAT,SERUM Normal 0.55-1.02 [facility] Comment on above: Result Comment: Canc elled via OM: Order cancelled - Patient discharged Performed By: #### L 500.2500, L100.0100 ####[facility] [address] [place], [address] EST GFR Normal >60 [facility] Comment on above: Result Comment: Canc elled via OM: Order cancelled - Patient discharged Performed By: #### L 500.2500, L100.0100 ####[facility] [address] [place], [address] EST GFR - AA Normal >60 [facility] Comment on above: Result Comment: Canc elled via OM: Order cancelled - Patient discharged Performed By: #### L 500.2500, L100.0100 ####[facility] [address] [place], [address] GAP Normal 5-15 [facility] Comment on above: Result Comment: Canc elled via OM: Order cancelled - Patient discharged Performed By: #### L 500.2500, L100.0100 ####[facility] [address] [place], [address] GLU Normal 74-106 [facility] Comment on above: Result Comment: Canc elled via OM: Order cancelled - Patient discharged Performed By: #### L 500.2500, L100.0100 ####[facility] [address] [place], [address] Potassium Normal 3.5-5.1 [facility] Comment on above: Result Comment: Canc elled via OM: Order cancelled - Patient discharged Performed By: #### L 500.2500, L100.0100 ####[facility] [address] [place], [address] Basic Metabolic Profile (BMP) Normal 136-145 [facility] Comment on above: Result Comment: Canc elled via OM: Order cancelled - Patient discharged Performed By: #### L 500.2500, L100.0100 ####[facility] [address] [place], [address] CBC W/Diff, Automatedon 07-24 Absolute Neut Normal 2.0-7.7 [facility] Comment on above: Result Comment: Canc elled via OM: Order cancelled - Patient discharged Performed By: #### L 500.2500, L100.0100 ####[facility] [address] [place], [address] HCT Normal 37-47 [facility] Comment on above: Result Comment: Canc elled via OM: Order cancelled - Patient discharged Performed By: #### L 500.2500, L100.0100 ####[facility] [address] [place], [address] HGB Normal 12.0-15.0 [facility] Comment on above: Result Comment: Canc elled via OM: Order cancelled - Patient discharged Performed By: #### L 500.2500, L100.0100 ####[facility] [address] [place], [address] MCH Normal 27.0-32.0 [facility] Comment on above: Result Comment: Canc elled via OM: Order cancelled - Patient discharged Performed By: #### L 500.2500, L100.0100 ####[facility] [address] [place], [address] MCHC Normal 32-36 [facility] Comment on above: Result Comment: Canc elled via OM: Order cancelled - Patient discharged Performed By: #### L 500.2500, L100.0100 ####[facility] [address] [place], [address] MCV Normal 81-99 [facility] Comment on above: Result Comment: Canc elled via OM: Order cancelled - Patient discharged Performed By: #### L 500.2500, L100.0100 ####[facility] [address] [place], [address] NEUT% Normal 47-70 [facility] Comment on above: Result Comment: Canc elled via OM: Order cancelled - Patient discharged Performed By: #### L 500.2500, L100.0100 ####[facility] [address] [place], [address] PLT Normal 150-450 [facility] Comment on above: Result Comment: Canc elled via OM: Order cancelled - Patient discharged Performed By: #### L 500.2500, L100.0100 ####[facility] [address] [place], [address] RBC Normal 4.2-5.4 [facility] Comment on above: Result Comment: Canc elled via OM: Order cancelled - Patient discharged Performed By: #### L 500.2500, L100.0100 ####[facility] [address] [place], [address] RDW CV Normal 11.6-14.6 [facility] Comment on above: Result Comment: Canc elled via OM: Order cancelled - Patient discharged Performed By: #### L 500.2500, L100.0100 ####[facility] [address] [place], [address] RDW SD Normal 35.1-43.9 [facility] Comment on above: Result Comment: Canc elled via OM: Order cancelled - Patient discharged Performed By: #### L 500.2500, L100.0100 ####[facility] [address] [place], [address] WBC Normal 4.4-11.0 [facility] Comment on above: Result Comment: Canc elled via OM: Order cancelled - Patient discharged Performed By: #### L 500.2500, L100.0100 ####[facility] [address] [place], [address] Basic Metabolic Profile (BMP )on 08-18-2024 BUN Normal 7-18 [facility] Comment on above: Result Comment: Canc elled via OM: Order cancelled - Patient discharged Performed By: #### L 100.0100, L500.2500 ####[facility] [address] [place], [address] BUN/CRE Normal 10-20 [facility] Comment on above: Result Comment: Canc elled via OM: Order cancelled - Patient discharged Performed By: #### L 100.0100, L500.2500 ####[facility] [address] [place], [address] CA,Total Normal 8.5-10.1 [facility] Comment on above: Result Comment: Canc elled via OM: Order cancelled - Patient discharged Performed By: #### L 100.0100, L500.2500 ####[facility] [address] [place], [address] CL Normal 98-107 [facility] Comment on above: Result Comment: Canc elled via OM: Order cancelled - Patient discharged Performed By: #### L 100.0100, L500.2500 ####[facility] [address] [place], [address] CO2 Normal 21.0-32.0 [facility] Comment on above: Result Comment: Canc elled via OM: Order cancelled - Patient discharged Performed By: #### L 100.0100, L500.2500 ####[facility] [address] [place], [address] CREAT,SERUM Normal 0.55-1.02 [facility] Comment on above: Result Comment: Canc elled via OM: Order cancelled - Patient discharged Performed By: #### L 100.0100, L500.2500 ####[facility] [address] [place], [address] EST GFR Normal >60 [facility] Comment on above: Result Comment: Canc elled via OM: Order cancelled - Patient discharged Performed By: #### L 100.0100, L500.2500 ####[facility] [address] [place], [address] EST GFR - AA Normal >60 [facility] Comment on above: Result Comment: Canc elled via OM: Order cancelled - Patient discharged Performed By: #### L 100.0100, L500.2500 ####[facility] [address] [place], [address] GAP Normal 5-15 [facility] Comment on above: Result Comment: Canc elled via OM: Order cancelled - Patient discharged Performed By: #### L 100.0100, L500.2500 ####[facility] [address] [place], [address] GLU Normal 74-106 [facility] Comment on above: Result Comment: Canc elled via OM: Order cancelled - Patient discharged Performed By: #### L 100.0100, L500.2500 ####[facility] [address] [place], [address] Potassium Normal 3.5-5.1 [facility] Comment on above: Result Comment: Canc elled via OM: Order cancelled - Patient discharged Performed By: #### L 100.0100, L500.2500 ####[facility] [address] [place], [address] Basic Metabolic Profile (BMP) Normal 136-145 [facility] Comment on above: Result Comment: Canc elled via OM: Order cancelled - Patient discharged Performed By: #### L 100.0100, L500.2500 ####[facility] [address] [place], [address] CBC W/Diff, Automatedon 01-2 Absolute Neut Normal 2.0-7.7 [facility] Comment on above: Result Comment: Canc elled via OM: Order cancelled - Patient discharged Performed By: #### L 100.0100, L500.2500 ####[facility] [address] [place], [address] HCT Normal 37-47 [facility] Comment on above: Result Comment: Canc elled via OM: Order cancelled - Patient discharged Performed By: #### L 100.0100, L500.2500 ####[facility] [address] [place], [address] HGB Normal 12.0-15.0 [facility] Comment on above: Result Comment: Canc elled via OM: Order cancelled - Patient discharged Performed By: #### L 100.0100, L500.2500 ####[facility] [address] [place], [address] MCH Normal 27.0-32.0 [facility] Comment on above: Result Comment: Canc elled via OM: Order cancelled - Patient discharged Performed By: #### L 100.0100, L500.2500 ####[facility] [address] [place], [address] MCHC Normal 32-36 [facility] Comment on above: Result Comment: Canc elled via OM: Order cancelled - Patient discharged Performed By: #### L 100.0100, L500.2500 ####[facility] [address] [place], [address] MCV Normal 81-99 [facility] Comment on above: Result Comment: Canc elled via OM: Order cancelled - Patient discharged Performed By: #### L 100.0100, L500.2500 ####[facility] [address] [place], [address] NEUT% Normal 47-70 [facility] Comment on above: Result Comment: Canc elled via OM: Order cancelled - Patient discharged Performed By: #### L 100.0100, L500.2500 ####[facility] [address] [place], [address] PLT Normal 150-450 [facility] Comment on above: Result Comment: Canc elled via OM: Order cancelled - Patient discharged Performed By: #### L 100.0100, L500.2500 ####[facility] [address] [place], [address] RBC Normal 4.2-5.4 [facility] Comment on above: Result Comment: Canc elled via OM: Order cancelled - Patient discharged Performed By: #### L 100.0100, L500.2500 ####[facility] [address] [place], [address] RDW CV Normal 11.6-14.6 [facility] Comment on above: Result Comment: Canc elled via OM: Order cancelled - Patient discharged Performed By: #### L 100.0100, L500.2500 ####[facility] [address] [place], [address] RDW SD Normal 35.1-43.9 [facility] Comment on above: Result Comment: Canc elled via OM: Order cancelled - Patient discharged Performed By: #### L 100.0100, L500.2500 ####[facility] [address] [place], [address] WBC Normal 4.4-11.0 [facility] Comment on above: Result Comment: Canc elled via OM: Order cancelled - Patient discharged Performed By: #### L 100.0100, L500.2500 ####[facility] [address] [place], [address] Culture, Blood (WB)on 2024 CUB Blood cultures x2, from two different sites No growth in 5 days. Normal [facility] Comment on above: Performed By: #### L 503.6005, L501.4020, L500.4050, L300.4310, M200.1000, L100.0100, L300.3900 ####[facility] [address] [place], [address] Basic Metabolic Profile (BMP )on 08-17-2024 BUN Normal 7-18 [facility] Comment on above: Result Comment: Canc elled via OM: Order cancelled - Patient discharged Performed By: #### L 100.0100, L500.2500 ####[facility] [address] [place], [address] BUN/CRE Normal 10-20 [facility] Comment on above: Result Comment: Canc elled via OM: Order cancelled - Patient discharged Performed By: #### L 100.0100, L500.2500 ####[facility] [address] [place], [address] CA,Total Normal 8.5-10.1 [facility] Comment on above: Result Comment: Canc elled via OM: Order cancelled - Patient discharged Performed By: #### L 100.0100, L500.2500 ####[facility] [address] [place], [address] CL Normal 98-107 [facility] Comment on above: Result Comment: Canc elled via OM: Order cancelled - Patient discharged Performed By: #### L 100.0100, L500.2500 ####[facility] [address] [place], [address] CO2 Normal 21.0-32.0 [facility] Comment on above: Result Comment: Canc elled via OM: Order cancelled - Patient discharged Performed By: #### L 100.0100, L500.2500 ####[facility] [address] [place], [address] CREAT,SERUM Normal 0.55-1.02 [facility] Comment on above: Result Comment: Canc elled via OM: Order cancelled - Patient discharged Performed By: #### L 100.0100, L500.2500 ####[facility] [address] [place], [address] EST GFR Normal >60 [facility] Comment on above: Result Comment: Canc elled via OM: Order cancelled - Patient discharged Performed By: #### L 100.0100, L500.2500 ####[facility] [address] [place], [address] EST GFR - AA Normal >60 [facility] Comment on above: Result Comment: Canc elled via OM: Order cancelled - Patient discharged Performed By: #### L 100.0100, L500.2500 ####[facility] [address] [place], [address] GAP Normal 5-15 [facility] Comment on above: Result Comment: Canc elled via OM: Order cancelled - Patient discharged Performed By: #### L 100.0100, L500.2500 ####[facility] [address] [place], [address] GLU Normal 74-106 [facility] Comment on above: Result Comment: Canc elled via OM: Order cancelled - Patient discharged Performed By: #### L 100.0100, L500.2500 ####[facility] [address] [place], [address] Potassium Normal 3.5-5.1 [facility] Comment on above: Result Comment: Canc elled via OM: Order cancelled - Patient discharged Performed By: #### L 100.0100, L500.2500 ####[facility] [address] [place], [address] Basic Metabolic Profile (BMP) Normal 136-145 [facility] Comment on above: Result Comment: Canc elled via OM: Order cancelled - Patient discharged Performed By: #### L 100.0100, L500.2500 ####[facility] [address] [place], [address] CBC W/Diff, Automatedon 01-2 Absolute Neut Normal 2.0-7.7 [facility] Comment on above: Result Comment: Canc elled via OM: Order cancelled - Patient discharged Performed By: #### L 100.0100, L500.2500 ####[facility] [address] [place], [address] HCT Normal 37-47 [facility] Comment on above: Result Comment: Canc elled via OM: Order cancelled - Patient discharged Performed By: #### L 100.0100, L500.2500 ####[facility] [address] [place], [address] HGB Normal 12.0-15.0 [facility] Comment on above: Result Comment: Canc elled via OM: Order cancelled - Patient discharged Performed By: #### L 100.0100, L500.2500 ####[facility] [address] [place], [address] MCH Normal 27.0-32.0 [facility] Comment on above: Result Comment: Canc elled via OM: Order cancelled - Patient discharged Performed By: #### L 100.0100, L500.2500 ####[facility] [address] [place], [address] MCHC Normal 32-36 [facility] Comment on above: Result Comment: Canc elled via OM: Order cancelled - Patient discharged Performed By: #### L 100.0100, L500.2500 ####[facility] [address] [place], [address] MCV Normal 81-99 [facility] Comment on above: Result Comment: Canc elled via OM: Order cancelled - Patient discharged Performed By: #### L 100.0100, L500.2500 ####[facility] [address] [place], [address] NEUT% Normal 47-70 [facility] Comment on above: Result Comment: Canc elled via OM: Order cancelled - Patient discharged Performed By: #### L 100.0100, L500.2500 ####[facility] [address] [place], [address] PLT Normal 150-450 [facility] Comment on above: Result Comment: Canc elled via OM: Order cancelled - Patient discharged Performed By: #### L 100.0100, L500.2500 ####[facility] [address] [place], [address] RBC Normal 4.2-5.4 [facility] Comment on above: Result Comment: Canc elled via OM: Order cancelled - Patient discharged Performed By: #### L 100.0100, L500.2500 ####[facility] [address] [place], [address] RDW CV Normal 11.6-14.6 [facility] Comment on above: Result Comment: Canc elled via OM: Order cancelled - Patient discharged Performed By: #### L 100.0100, L500.2500 ####[facility] [address] [place], [address] RDW SD Normal 35.1-43.9 [facility] Comment on above: Result Comment: Canc elled via OM: Order cancelled - Patient discharged Performed By: #### L 100.0100, L500.2500 ####[facility] [address] [place], [address] WBC Normal 4.4-11.0 [facility] Comment on above: Result Comment: Canc elled via OM: Order cancelled - Patient discharged Performed By: #### L 100.0100, L500.2500 ####[facility] [address] [place], [address] Basic Metabolic Profile (BMP )on 08-16-2024 BUN Normal 7-18 [facility] Comment on above: Result Comment: Canc elled via OM: Order cancelled - Patient discharged Performed By: #### L 500.2500, L100.0100 ####[facility] [address] [place], [address] BUN/CRE Normal 10-20 [facility] Comment on above: Result Comment: Canc elled via OM: Order cancelled - Patient discharged Performed By: #### L 500.2500, L100.0100 ####[facility] [address] [place], [address] CA,Total Normal 8.5-10.1 [facility] Comment on above: Result Comment: Canc elled via OM: Order cancelled - Patient discharged Performed By: #### L 500.2500, L100.0100 ####[facility] [address] [place], [address] CL Normal 98-107 [facility] Comment on above: Result Comment: Canc elled via OM: Order cancelled - Patient discharged Performed By: #### L 500.2500, L100.0100 ####[facility] [address] [place], [address] CO2 Normal 21.0-32.0 [facility] Comment on above: Result Comment: Canc elled via OM: Order cancelled - Patient discharged Performed By: #### L 500.2500, L100.0100 ####[facility] [address] [place], [address] CREAT,SERUM Normal 0.55-1.02 [facility] Comment on above: Result Comment: Canc elled via OM: Order cancelled - Patient discharged Performed By: #### L 500.2500, L100.0100 ####[facility] [address] [place], [address] EST GFR Normal >60 [facility] Comment on above: Result Comment: Canc elled via OM: Order cancelled - Patient discharged Performed By: #### L 500.2500, L100.0100 ####[facility] [address] [place], [address] EST GFR - AA Normal >60 [facility] Comment on above: Result Comment: Canc elled via OM: Order cancelled - Patient discharged Performed By: #### L 500.2500, L100.0100 ####[facility] [address] [place], [address] GAP Normal 5-15 [facility] Comment on above: Result Comment: Canc elled via OM: Order cancelled - Patient discharged Performed By: #### L 500.2500, L100.0100 ####[facility] [address] [place], [address] GLU Normal 74-106 [facility] Comment on above: Result Comment: Canc elled via OM: Order cancelled - Patient discharged Performed By: #### L 500.2500, L100.0100 ####[facility] [address] [place], [address] Potassium Normal 3.5-5.1 [facility] Comment on above: Result Comment: Canc elled via OM: Order cancelled - Patient discharged Performed By: #### L 500.2500, L100.0100 ####[facility] [address] [place], [address] Basic Metabolic Profile (BMP) Normal 136-145 [facility] Comment on above: Result Comment: Canc elled via OM: Order cancelled - Patient discharged Performed By: #### L 500.2500, L100.0100 ####[facility] [address] [place], [address] CBC W/Diff, Automatedon 01-2 Absolute Neut Normal 2.0-7.7 [facility] Comment on above: Result Comment: Canc elled via OM: Order cancelled - Patient discharged Performed By: #### L 500.2500, L100.0100 ####[facility] [address] [place], [address] HCT Normal 37-47 [facility] Comment on above: Result Comment: Canc elled via OM: Order cancelled - Patient discharged Performed By: #### L 500.2500, L100.0100 ####[facility] [address] [place], [address] HGB Normal 12.0-15.0 [facility] Comment on above: Result Comment: Canc elled via OM: Order cancelled - Patient discharged Performed By: #### L 500.2500, L100.0100 ####[facility] [address] [place], [address] MCH Normal 27.0-32.0 [facility] Comment on above: Result Comment: Canc elled via OM: Order cancelled - Patient discharged Performed By: #### L 500.2500, L100.0100 ####[facility] [address] [place], [address] MCHC Normal 32-36 [facility] Comment on above: Result Comment: Canc elled via OM: Order cancelled - Patient discharged Performed By: #### L 500.2500, L100.0100 ####[facility] [address] [place], [address] MCV Normal 81-99 [facility] Comment on above: Result Comment: Canc elled via OM: Order cancelled - Patient discharged Performed By: #### L 500.2500, L100.0100 ####[facility] [address] [place], [address] NEUT% Normal 47-70 [facility] Comment on above: Result Comment: Canc elled via OM: Order cancelled - Patient discharged Performed By: #### L 500.2500, L100.0100 ####[facility] [address] [place], [address] PLT Normal 150-450 [facility] Comment on above: Result Comment: Canc elled via OM: Order cancelled - Patient discharged Performed By: #### L 500.2500, L100.0100 ####[facility] [address] [place], [address] RBC Normal 4.2-5.4 [facility] Comment on above: Result Comment: Canc elled via OM: Order cancelled - Patient discharged Performed By: #### L 500.2500, L100.0100 ####[facility] [address] [place], [address] RDW CV Normal 11.6-14.6 [facility] Comment on above: Result Comment: Canc elled via OM: Order cancelled - Patient discharged Performed By: #### L 500.2500, L100.0100 ####[facility] [address] [place], [address] RDW SD Normal 35.1-43.9 [facility] Comment on above: Result Comment: Canc elled via OM: Order cancelled - Patient discharged Performed By: #### L 500.2500, L100.0100 ####[facility] [address] [place], [address] WBC Normal 4.4-11.0 [facility] Comment on above: Result Comment: Canc elled via OM: Order cancelled - Patient discharged Performed By: #### L 500.2500, L100.0100 ####[facility] [address] [place], [address] Absolute neutrophil countOrd ered By: Alba Jurado on 08-15-2024 Absolute neutrophil count 4.7 X10^3/uL 2.0-7.7 [facility] Basic Metabolic Profile (BMP )on 08-15-2024 BUN/CRE 27.4 RATIO High 10-20 [facility] Comment on above: Performed By: #### L 500.2500, L100.0100 ####[facility] [address] [place], [address] CA,Total 10.0 mg/dL Normal 8.5-10.1 [facility] Comment on above: Performed By: #### L 500.2500, L100.0100 ####[facility] [address] [place], [address] Chloride [Moles/Vol] 110 mmol/L High 98-107 [facility] Comment on above: Performed By: #### L 500.2500, L100.0100 ####[facility] [address] [place], [address] CO2 [Moles/Vol] 24.0 mmol/L Normal 21.0-32.0 [facility] Comment on above: Performed By: #### L 500.2500, L100.0100 ####[facility] [address] [place], [address] Creatinine [Mass/Vol] 0.44 mg/dL Low 0.55-1.02 [facility] Comment on above: Result Comment: The validity of the calculated GFR GFRAA in patients over70 years has not been determined. Clinical correlation isessential. Performed By: #### L 500.2500, L100.0100 ####[facility] [address] [place], [address] ECRCL 50.62 ml/min Normal [facility] Comment on above: Performed By: #### L 500.2500, L100.0100 ####[facility] [address] [place], [address] EST GFR - AA 177 mL/min Normal >60 [facility] Comment on above: Result Comment: Afri can Thai GFR Calc Performed By: #### L 500.2500, L100.0100 ####[facility] [address] [place], [address] GAP 6 Normal 5-15 [facility] Comment on above: Performed By: #### L 500.2500, L100.0100 ####[facility] [address] [place], [address] GFR/1.73 sq M.predicted among non-blacks MDRD (S/P/Bld) [Vol rate/Area] 146 mL/min/{1.73_m2} Normal >60 [facility] Comment on above: Result Comment: Non- GFR Calc Performed By: #### L 500.2500, L100.0100 ####[facility] [address] [place], [address] Glucose [Mass/Vol] 108 mg/dL High 74-106 [facility] Comment on above: Result Comment: Fast ing Glucose result from 100 to 125 mg/dLsuggests IMPAIRED HOMEOSTASIS per A.D.A. criteria. Performed By: #### L 500.2500, L100.0100 ####[facility] [address] [place], [address] Potassium [Moles/Vol] 3.8 mmol/L Normal 3.5-5.1 [facility] Comment on above: Result Comment: Slig ht Hemolysis, Result may be falsely increased. Performed By: #### L 500.2500, L100.0100 ####[facility] [address] [place], [address] Sodium [Moles/Vol] 140 mmol/L Normal 136-145 [facility] Comment on above: Performed By: #### L 500.2500, L100.0100 ####[facility] [address] [place], [address] Urea nitrogen [Mass/Vol] 12 mg/dL Normal 7-18 [facility] Comment on above: Performed By: #### L 500.2500, L100.0100 ####[facility] [address] [place], [address] Basophil percentageOrdered B y: Alba Jurado on 08-15-2024 Basophil percentage 0.7 % 0-[address] [facility] Blood urea nitrogen (BUN)/cr eatinine ratioOrdered By: Alba Jurado on 08-15-2024 Blood urea nitrogen (BUN)/creatinine ratio 27.4 RATIO High 10-20 [facility] CBC W/Diff, Automatedon 07-24 Absolute Lymph 0.95 X10 3/uL Normal 0.83-4.51 [facility] Comment on above: Performed By: #### L 500.2500, L100.0100 ####[facility] [address] [place], [address] Absolute Neut 4.7 X10 3/uL Normal 2.0-7.7 [facility] Comment on above: Performed By: #### L 500.2500, L100.0100 ####[facility] [address] [place], [address] Basophils/100 WBC (Bld) 0.7 % Normal 0-[address] [facility] Comment on above: Performed By: #### L 500.2500, L100.0100 ####[facility] [address] [place], [address] Eosinophils/100 WBC (Bld) 9.1 % High 0-5 [facility] Comment on above: Performed By: #### L 500.2500, L100.0100 ####[facility] [address] [place], [address] Erythrocyte distribution width (RBC) [Ratio] 14.1 % Normal 11.6-14.6 [facility] Comment on above: Performed By: #### L 500.2500, L100.0100 ####[facility] [address] [place], [address] Hematocrit (Bld) [Volume fraction] 34.3 % Low 37-47 [facility] Comment on above: Performed By: #### L 500.2500, L100.0100 ####[facility] [address] [place], [address] Hemoglobin (Bld) [Mass/Vol] 11.0 g/dL Low 12.0-15.0 [facility] Comment on above: Performed By: #### L 500.2500, L100.0100 ####[facility] [address] [place], [address] IG% 0.700 Normal 0.0-0.9 [facility] Comment on above: Result Comment: IG% - Immature Granulocytes (promyelocytes, myelocytes andmetamyelocytes) > 1% indicates that a LEFT SHIFT is Present. Performed By: #### L 500.2500, L100.0100 ####[facility] [address] [place], [address] Lymphocytes/100 WBC (Bld) 13.1 % Low 19-41 [facility] Comment on above: Performed By: #### L 500.2500, L100.0100 ####[facility] [address] [place], [address] MCH (RBC) [Entitic mass] 27.8 pg Normal 27.0-32.0 [facility] Comment on above: Performed By: #### L 500.2500, L100.0100 ####[facility] [address] [place], [address] MCHC (RBC) [Mass/Vol] 32.1 g/dL Normal 32-36 [facility] Comment on above: Performed By: #### L 500.2500, L100.0100 ####[facility] [address] [place], [address] MCV (RBC) [Entitic vol] 86.6 fL Normal 81-[address] [facility] Comment on above: Performed By: #### L 500.2500, L100.0100 ####[facility] [address] [place], [address] Monocytes/100 WBC (Bld) 12.1 % High 0-10 [facility] Comment on above: Performed By: #### L 500.2500, L100.0100 ####[facility] [address] [place], [address] Neutrophils/100 WBC (Bld) 64.3 % Normal 47-70 [facility] Comment on above: Performed By: #### L 500.2500, L100.0100 ####[facility] [address] [place], [address] Nucleated RBC (Bld) [#/Vol] 0 10*3/uL Normal 0-5 [facility] Comment on above: Performed By: #### L 500.2500, L100.0100 ####[facility] [address] [place], [address] Platelet mean volume (Bld) [Entitic vol] 10.1 fL Normal 6.2-12.0 [facility] Comment on above: Performed By: #### L 500.2500, L100.0100 ####[facility] [address] [place], [address] Platelets (Bld) [#/Vol] 230 10*3/uL Normal 150-450 [facility] Comment on above: Performed By: #### L 500.2500, L100.0100 ####[facility] [address] [place], [address] RBC (Bld) [#/Vol] 3.96 10*6/uL Low 4.2-5.[address] [facility] Comment on above: Performed By: #### L 500.2500, L100.0100 ####[facility] [address] [place], [address] RDW SD 45.1 fl High 35.1-43.9 [facility] Comment on above: Performed By: #### L 500.2500, L100.0100 ####[facility] [address] [place], [address] WBC (Bld) [#/Vol] 7.3 10*3/uL Normal 4.4-11.0 [facility] Comment on above: Performed By: #### L 500.2500, L100.0100 ####[facility] [address] [place], [address] Calcium [Mass/Vol]Ordered By : Alba Jurado on 08-15-2024 Serum or plasma calcium measurement (mass/volume) 10.0 mg/dL 8.5-10.1 [facility] Carbon dioxide measurementOr dered By: Alba Jurado on 08-15-2024 Carbon dioxide measurement 24.0 mmol/L 21.0-32.0 [facility] Chloride measurementOrdered By: Alba Jurado on 08-15-2024 Chloride measurement 110 mmol/L High 98-107 [facility] Creatinine [Mass/Vol]Ordered By: Alba Jurado on 08-15-2024 Serum or plasma creatinine measurement (mass/volume) 0.44 mg/dL Low 0.55-1.02 [facility] Discharge Instructionon 07-24 Discharge Instruction Normal [facility] Eosinophil percentageOrdered By: Alba Jurado on 08-15-2024 Eosinophil percentage 9.1 % High 0-5 [facility] Erythrocyte distribution wid th (RBC) [Ratio]Ordered By: Alba Jurado on 08-15-2024 Erythrocyte distribution width ratio 14.1 % 11.6-14.6 [facility] Erythrocyte distribution width standard deviation 45.1 fl High 35.1-43.9 [facility] Estimated glomerular filtrat ion rate (GFR) AmericanOrdered By: Alba Jurado on 08-15-2024 Estimated glomerular filtration rate (GFR) 177 mL/min >60 [facility] Estimation of creatinine hernando aranceOrdered By: Alba Jurado on 08-15-2024 Estimation of creatinine clearance 50.62 ml/min [facility] Glomerular filtration rate ( GFR) estimationOrdered By: Alba Jurado on 08-15-2024 Glomerular filtration rate (GFR) estimation 146 mL/min >60 [facility] Glucose measurementOrdered B y: Alba Jurado on 08-15-2024 Glucose measurement 108 mg/dL High 74-[address] [facility] Hematocrit Auto (Bld) [Volum e fraction]Ordered By: Alba Jurado on 08-15-2024 Automated blood hematocrit (percentage) 34.3 % Low 37-47 [facility] Hemoglobin measurementOrdere d By: Alba Jurado on 08-15-2024 Hemoglobin measurement 11.0 g/dL Low 12.0-15.0 [facility] Immature granulocytes/100 WB C Auto (Bld)Ordered By: Alba Jurado on 08-15-2024 Automated immature granulocyte percentage 0.700 % 0.0-0.9 [facility] Lymphocytes Auto (Unsp spec) [#/Vol]Ordered By: Alba Jurado on 08-15-2024 Absolute lymphocyte count 0.95 X10^3/uL 0.83-4.51 [facility] Lymphocytes/100 WBC Auto (Un sp spec)Ordered By: Alba Jurado on 08-15-2024 Automated lymphocyte count as percentage of total leukocytes 13.1 % Low 19-41 [facility] MCV (RBC) [Entitic vol]Order ed By: Alba Jurado on 08-15-2024 MCV (mean corpuscular volume) determination 86.6 fL 81-99 [facility] Mean corpuscular hemoglobin (MCH) determinationOrdered By: Alba Jurado on 08-15-2024 Mean corpuscular hemoglobin (MCH) determination 27.8 pg 27.0-32.0 [facility] Mean corpuscular hemoglobin concentration (MCHC) determinationOrdered By: Alba Jurado on 08-15-2024 Mean corpuscular hemoglobin concentration (MCHC) determination 32.1 g/dL 32-36 [facility] Mean platelet volume determi nationOrdered By: Alba Jurado on 08-15-2024 Mean platelet volume determination 10.1 fl 6.2-12.0 [facility] Monocyte percentageOrdered B y: Alba Jurado on 08-15-2024 Monocyte percentage 12.1 % High 0-[address] [facility] Neutrophil percentageOrdered By: Alba Jurado on 08-15-2024 Neutrophil percentage 64.3 % 47-70 [facility] Nucleated red blood cell per centageOrdered By: Alba Jurado on 08-15-2024 Nucleated red blood cell percentage 0 % 0-5 [facility] Platelet countOrdered By: Katie Jurado on 08-15-2024 Platelet count 230 K/mm3 150-450 [facility] Potassium measurementOrdered By: Alba Jurado on 08-15-2024 Potassium measurement 3.8 mmol/L 3.5-5.1 [facility] RBC Auto (Bld) [#/Vol]Ordere d By: Alba Jurado on 08-15-2024 Automated blood erythrocyte count 3.96 M/mm3 Low 4.2-5.4 [facility] Serum anion gap measurementO rdered By: Alba Jurado on 08-15-2024 Serum anion gap measurement 6 5-15 [facility] Sodium levelOrdered By: Alba Jurado on 08-15-2024 Sodium level 140 mmol/L 136-145 [facility] Urea nitrogen [Mass/Vol]Orde red By: lAba Jurado on 08-15-2024 Serum or plasma urea nitrogen measurement (mass/volume) 12 mg/dL 7-18 [facility] Urine Cultureon 08-15-2024 URC Normal [facility] Comment on above: Performed By: #### M 100.2200, L400.0001 ####[facility] [address] [place], [place], [address] White blood cell (WBC) count Ordered By: Alba Jurado on 08-15-2024 White blood cell (WBC) count 7.3 K/mm3 4.4-11.0 [facility] 12 Lead EKGon 08-14-2024 12 Lead EKG Normal [facility] Basic Metabolic Profile (BMP )on 08-14-2024 BUN/CRE 25.0 RATIO High 10-20 [facility] Comment on above: Performed By: #### L 100.0100, L500.2500 ####[facility] [address] [place], [address] CA,Total 9.7 mg/dL Normal 8.5-10.1 [facility] Comment on above: Performed By: #### L 100.0100, L500.2500 ####[facility] [address] [place], [address] Chloride [Moles/Vol] 108 mmol/L High 98-107 [facility] Comment on above: Performed By: #### L 100.0100, L500.2500 ####[facility] [address] [place], [address] CO2 [Moles/Vol] 24.0 mmol/L Normal 21.0-32.0 [facility] Comment on above: Performed By: #### L 100.0100, L500.2500 ####[facility] [address] [place], [address] Creatinine [Mass/Vol] 0.52 mg/dL Low 0.55-1.02 [facility] Comment on above: Result Comment: The validity of the calculated GFR GFRAA in patients over70 years has not been determined. Clinical correlation isessential. Performed By: #### L 100.0100, L500.2500 ####[facility] [address] [place], [address] ECRCL 49.59 ml/min Normal [facility] Comment on above: Performed By: #### L 100.0100, L500.2500 ####[facility] [address] [place], [address] EST GFR - AA 145 mL/min Normal >60 [facility] Comment on above: Result Comment: Afri can Thai GFR Calc Performed By: #### L 100.0100, L500.2500 ####[facility] [address] [place], [address] GAP 6 Normal 5-15 [facility] Comment on above: Performed By: #### L 100.0100, L500.2500 ####[facility] [address] [place], [address] GFR/1.73 sq M.predicted among non-blacks MDRD (S/P/Bld) [Vol rate/Area] 120 mL/min/{1.73_m2} Normal >60 [facility] Comment on above: Result Comment: Non- GFR Calc Performed By: #### L 100.0100, L500.2500 ####[facility] [address] [place] [place], [address] Glucose [Mass/Vol] 105 mg/dL Normal 74-106 [facility] Comment on above: Result Comment: Fast ing Glucose result from 100 to 125 mg/dLsuggests IMPAIRED HOMEOSTASIS per A.D.A. criteria. Performed By: #### L 100.0100, L500.2500 ####[facility] [address] [place], [address] Potassium [Moles/Vol] 3.5 mmol/L Normal 3.5-5.1 [facility] Comment on above: Performed By: #### L 100.0100, L500.2500 ####[facility] [address] [place], [address] Sodium [Moles/Vol] 138 mmol/L Normal 136-145 [facility] Comment on above: Performed By: #### L 100.0100, L500.2500 ####[facility] [address] [place], [address] Urea nitrogen [Mass/Vol] 13 mg/dL Normal 7-18 [facility] Comment on above: Performed By: #### L 100.0100, L500.2500 ####[facility] [address] [place], [address] CBC W/Diff, Automatedon 01-2 -2024 Absolute Lymph 0.98 X10 3/uL Normal 0.83-4.51 [facility] Comment on above: Performed By: #### L 100.0100, L500.2500 ####[facility] [address] [place], [address] Absolute Neut 4.7 X10 3/uL Normal 2.0-7.7 [facility] Comment on above: Performed By: #### L 100.0100, L500.2500 ####[facility] [address] [place], [address] Basophils/100 WBC (Bld) 0.7 % Normal 0-[address] [facility] Comment on above: Performed By: #### L 100.0100, L500.2500 ####[facility] [address] [place], [address] Eosinophils/100 WBC (Bld) 9.2 % High 0-5 [facility] Comment on above: Performed By: #### L 100.0100, L500.2500 ####[facility] [address] [place], [address] Erythrocyte distribution width (RBC) [Ratio] 14.0 % Normal 11.6-14.6 [facility] Comment on above: Performed By: #### L 100.0100, L500.2500 ####[facility] [address] [place], [address] Hematocrit (Bld) [Volume fraction] 34.8 % Low 37-47 [facility] Comment on above: Performed By: #### L 100.0100, L500.2500 ####[facility] [address] [place], [address] Hemoglobin (Bld) [Mass/Vol] 11.2 g/dL Low 12.0-15.0 [facility] Comment on above: Performed By: #### L 100.0100, L500.2500 ####[facility] [address] [place], [address] IG% 0.700 Normal 0.0-0.9 [facility] Comment on above: Result Comment: IG% - Immature Granulocytes (promyelocytes, myelocytes andmetamyelocytes) > 1% indicates that a LEFT SHIFT is Present. Performed By: #### L 100.0100, L500.2500 ####[facility] [address] [place], [address] Lymphocytes/100 WBC (Bld) 12.9 % Low 19-41 [facility] Comment on above: Performed By: #### L 100.0100, L500.2500 ####[facility] [address] [place], [address] MCH (RBC) [Entitic mass] 28.0 pg Normal 27.0-32.0 [facility] Comment on above: Performed By: #### L 100.0100, L500.2500 ####[facility] [address] [place], [address] MCHC (RBC) [Mass/Vol] 32.2 g/dL Normal 32-36 [facility] Comment on above: Performed By: #### L 100.0100, L500.2500 ####[facility] [address] [place], [address] MCV (RBC) [Entitic vol] 87.0 fL Normal 81-[address] [facility] Comment on above: Performed By: #### L 100.0100, L500.2500 ####[facility] [address] [place], [address] Monocytes/100 WBC (Bld) 14.2 % High 0-[address] [facility] Comment on above: Performed By: #### L 100.0100, L500.2500 ####[facility] [address] [place], [address] Neutrophils/100 WBC (Bld) 62.3 % Normal 47-70 [facility] Comment on above: Performed By: #### L 100.0100, L500.2500 ####[facility] [address] [place], [address] Nucleated RBC (Bld) [#/Vol] 0 10*3/uL Normal 0-5 [facility] Comment on above: Performed By: #### L 100.0100, L500.2500 ####[facility] [address] [place], [address] Platelet mean volume (Bld) [Entitic vol] 10.1 fL Normal 6.2-12.0 [facility] Comment on above: Performed By: #### L 100.0100, L500.2500 ####[facility] [address] [place], [address] Platelets (Bld) [#/Vol] 221 10*3/uL Normal 150-450 [facility] Comment on above: Performed By: #### L 100.0100, L500.2500 ####[facility] [address] [place], [address] RBC (Bld) [#/Vol] 4.00 10*6/uL Low 4.2-5.[address] [facility] Comment on above: Performed By: #### L 100.0100, L500.2500 ####[facility] [address] [place], [address] RDW SD 44.5 fl High 35.1-43.9 [facility] Comment on above: Performed By: #### L 100.0100, L500.2500 ####[facility] [address] [place], [address] WBC (Bld) [#/Vol] 7.6 10*3/uL Normal 4.4-11.0 [facility] Comment on above: Performed By: #### L 100.0100, L500.2500 ####[facility] [address] [place], [address] L501.4020on 08-14-2024 TROPONIN-I HS 26 pg/mL Normal 3.0-54.0 [facility] Comment on above: Order Comment: Comme nts: SPECIMEN #3'TROP' Serial specimen #1, #2 or #3: 3 Result Comment: Plea se Note: New Test Units and Gender Specific Reference Ranges. For more information see Policy Stat Procedure Kake High Sensitivity Troponin (TNIH) and attachments. Performed By: #### L 501.4020 ####[facility] [address] [place], [address] TROPONIN-I HS 28 pg/mL Normal 3.0-54.0 [facility] Comment on above: Order Comment: Comme nts: SPECIMEN #2'TROP' Serial specimen #1, #2 or #3: 2 Result Comment: Plea se Note: New Test Units and Gender Specific Reference Ranges. For more information see Policy Stat Procedure Kake High Sensitivity Troponin (TNIH) and attachments. Performed By: #### L 501.4020 ####[facility] [address] [place], [address] TROPONIN-I HS 27 pg/mL Normal 3.0-54.0 [facility] Comment on above: Order Comment: 'TROP ' Serial specimen #1, #2 or #3: 1 Result Comment: Plea se Note: New Test Units and Gender Specific Reference Ranges. For more information see Policy Stat Procedure Kake High Sensitivity Troponin (TNIH) and attachments. Performed By: #### L 501.4020 ####[facility] [address] [place], [address] M8200.1000on 08-14-2024 M8200.1000 Normal [facility] Comment on above: Performed By: #### M 8200.1000 ####[facility] [address] [place], [address] Troponin IOrdered By: Alba swain on 08-14-2024 Troponin I 26 pg/mL 3.0-54.0 [facility] ALP [Catalytic activity/Vol] Ordered By: [facility] Danay on 08-13-2024 Serum or plasma alkaline phosphatase measurement 98 U/L 45-117 [facility] Albumin [Mass/Vol]Ordered By : [facility] Danay on 08-13-2024 Serum or plasma albumin measurement (mass/volume) 2.4 g/dL Low 3.2-5.0 [facility] Albumin to globulin ratioOrd ered By: Jennifer Danay on 08-13-2024 Albumin to globulin ratio 0.7 RATIO Low 0.9-2.4 [facility] Bilirubin, totalOrdered By: [facility] Danay on 08-13-2024 Bilirubin, total 0.30 mg/dL 0.20-1.00 [facility] CBC W/Diff, Automatedon 07-24 Absolute Lymph 0.65 X10 3/uL Low 0.83-4.51 [facility] Comment on above: Performed By: #### L 100.0100, L500.4050 ####[facility] [address] [place], [address] Absolute Neut 4.7 X10 3/uL Normal 2.0-7.7 [facility] Comment on above: Performed By: #### L 100.0100, L500.4050 ####[facility] [address] [place], [address] Basophils/100 WBC (Bld) 0.7 % Normal 0-[address] [facility] Comment on above: Performed By: #### L 100.0100, L500.4050 ####[facility] [address] [place], [address] Eosinophils/100 WBC (Bld) 11.5 % High 0-5 [facility] Comment on above: Performed By: #### L 100.0100, L500.4050 ####[facility] [address] [place], [address] Erythrocyte distribution width (RBC) [Ratio] 13.9 % Normal 11.6-14.6 [facility] Comment on above: Performed By: #### L 100.0100, L500.4050 ####[facility] [address] [place], [address] Hematocrit (Bld) [Volume fraction] 38.6 % Normal 37-47 [facility] Comment on above: Performed By: #### L 100.0100, L500.4050 ####[facility] [address] [place], [address] Hemoglobin (Bld) [Mass/Vol] 12.2 g/dL Normal 12.0-15.0 [facility] Comment on above: Performed By: #### L 100.0100, L500.4050 ####[facility] [address] [place], [address] IG% 0.400 Normal 0.0-0.9 [facility] Comment on above: Result Comment: IG% - Immature Granulocytes (promyelocytes, myelocytes andmetamyelocytes) > 1% indicates that a LEFT SHIFT is Present. Performed By: #### L 100.0100, L500.4050 ####[facility] [address] [place], [address] Lymphocytes/100 WBC (Bld) 9.1 % Low 19-41 [facility] Comment on above: Performed By: #### L 100.0100, L500.4050 ####[facility] [address] [place], [address] MCH (RBC) [Entitic mass] 28.0 pg Normal 27.0-32.0 [facility] Comment on above: Performed By: #### L 100.0100, L500.4050 ####[facility] [address] [place], [address] MCHC (RBC) [Mass/Vol] 31.6 g/dL Low 32-36 [facility] Comment on above: Performed By: #### L 100.0100, L500.4050 ####[facility] [address] [place], [address] MCV (RBC) [Entitic vol] 88.5 fL Normal 81-[address] [facility] Comment on above: Performed By: #### L 100.0100, L500.4050 ####[facility] [address] [place], [address] Monocytes/100 WBC (Bld) 13.3 % High 0-10 [facility] Comment on above: Performed By: #### L 100.0100, L500.4050 ####[facility] [address] [place], [address] Neutrophils/100 WBC (Bld) 65.0 % Normal 47-70 [facility] Comment on above: Performed By: #### L 100.0100, L500.4050 ####[facility] [address] [place], [address] Nucleated RBC (Bld) [#/Vol] 0 10*3/uL Normal 0-5 [facility] Comment on above: Performed By: #### L 100.0100, L500.4050 ####[facility] [address] [place], [address] Platelet mean volume (Bld) [Entitic vol] 10.0 fL Normal 6.2-12.0 [facility] Comment on above: Performed By: #### L 100.0100, L500.4050 ####[facility] [address] [place], [address] Platelets (Bld) [#/Vol] 217 10*3/uL Normal 150-450 [facility] Comment on above: Performed By: #### L 100.0100, L500.4050 ####[facility] [address] [place], [address] RBC (Bld) [#/Vol] 4.36 10*6/uL Normal 4.2-5.[address] [facility] Comment on above: Performed By: #### L 100.0100, L500.4050 ####[facility] [address] [place], [address] RDW SD 45.0 fl High 35.1-43.9 [facility] Comment on above: Performed By: #### L 100.0100, L500.4050 ####[facility] [address] [place], [address] WBC (Bld) [#/Vol] 7.2 10*3/uL Normal 4.4-11.0 [facility] Comment on above: Performed By: #### L 100.0100, L500.4050 ####[facility] [address] [place], [address] Comprehensive Metabolic Prof ilon 08-13-2024 Albumin [Mass/Vol] 2.4 g/dL Low 3.2-5.0 [facility] Comment on above: Performed By: #### L 100.0100, L500.4050 ####[facility] [address] [place], [address] Albumin/Globulin [Mass ratio] 0.7 {ratio} Low 0.9-2.4 [facility] Comment on above: Performed By: #### L 100.0100, L500.4050 ####[facility] [address] [place], [address] ALK P 98 U/L Normal 45-117 [facility] Comment on above: Performed By: #### L 100.0100, L500.4050 ####[facility] [address] [place], [address] ALT [Catalytic activity/Vol] 18 U/L Normal 13-56 [facility] Comment on above: Performed By: #### L 100.0100, L500.4050 ####[facility] [address] [place], [address] AST [Catalytic activity/Vol] 18 U/L Normal 15-37 [facility] Comment on above: Performed By: #### L 100.0100, L500.4050 ####[facility] [address] [place], [address] Bilirubin [Mass/Vol] 0.30 mg/dL Normal 0.20-1.00 [facility] Comment on above: Result Comment: For patients on eltrombopag therapy, use of Dimension Kake TBIL is not recommended. Performed By: #### L 100.0100, L500.4050 ####[facility] [address] [place], [address] BUN/CRE 22.3 RATIO High 10-20 [facility] Comment on above: Performed By: #### L 100.0100, L500.4050 ####[facility] [address] [place], [address] CA,Total 9.8 mg/dL Normal 8.5-10.1 [facility] Comment on above: Performed By: #### L 100.0100, L500.4050 ####[facility] [address] [place], [address] Chloride [Moles/Vol] 110 mmol/L High 98-107 [facility] Comment on above: Performed By: #### L 100.0100, L500.4050 ####[facility] [address] [place], [address] CO2 [Moles/Vol] 27.0 mmol/L Normal 21.0-32.0 [facility] Comment on above: Performed By: #### L 100.0100, L500.4050 ####[facility] [address] [place], [address] Creatinine [Mass/Vol] 0.72 mg/dL Normal 0.55-1.02 [facility] Comment on above: Result Comment: The validity of the calculated GFR GFRAA in patients over70 years has not been determined. Clinical correlation isessential. Performed By: #### L 100.0100, L500.4050 ####[facility] [address] [place], [address] ECRCL 49.59 ml/min Normal [facility] Comment on above: Performed By: #### L 100.0100, L500.4050 ####[facility] [address] [place], [address] EST GFR - AA 100 mL/min Normal >60 [facility] Comment on above: Result Comment: Afri can Thai GFR Calc Performed By: #### L 100.0100, L500.4050 ####[facility] [address] [place], [address] GAP 6 Normal 5-15 [facility] Comment on above: Performed By: #### L 100.0100, L500.4050 ####[facility] [address] [place], [address] GFR/1.73 sq M.predicted among non-blacks MDRD (S/P/Bld) [Vol rate/Area] 83 mL/min/{1.73_m2} Normal >60 [facility] Comment on above: Result Comment: Non- GFR Calc Performed By: #### L 100.0100, L500.4050 ####[facility] [address] [place], [address] Globulin (S) [Mass/Vol] 3.3 g/dL Normal 2.2-4.2 [facility] Comment on above: Performed By: #### L 100.0100, L500.4050 ####[facility] [address] [place], [address] Glucose [Mass/Vol] 112 mg/dL High 74-106 [facility] Comment on above: Result Comment: Fast ing Glucose result from 100 to 125 mg/dLsuggests IMPAIRED HOMEOSTASIS per A.D.A. criteria. Performed By: #### L 100.0100, L500.4050 ####[facility] [address] [place], [address] Potassium [Moles/Vol] 3.2 mmol/L Low 3.5-5.1 [facility] Comment on above: Performed By: #### L 100.0100, L500.4050 ####[facility] [address] [place], [address] Sodium [Moles/Vol] 142 mmol/L Normal 136-145 [facility] Comment on above: Performed By: #### L 100.0100, L500.4050 ####[facility] [address] [place], [address] T PROT 5.7 g/dL Low 6.4-8.2 [facility] Comment on above: Performed By: #### L 100.0100, L500.4050 ####[facility] [address] [place], [address] Urea nitrogen [Mass/Vol] 16 mg/dL Normal 7-18 [facility] Comment on above: Performed By: #### L 100.0100, L500.4050 ####[facility] [address] [place], [address] Legionella Antigen Urineon 0 - LEGU Normal [facility] Comment on above: Performed By: #### M 300.4500 ####[facility] [address] [place], [place], [address] Procalcitoninon 08-13-2024 Procalcitonin 0.12 ng/mL High 0.00-0.09 [facility] Comment on above: Result Comment: A [...] are obtained. Performed By: #### L 509.7004 ####[facility] [address] [facility]. [place], [place], [id number] RESPIRATORY PANEL MOLECULARo n 08-13-2024 RP PANEL Normal [facility] Comment on above: Performed By: #### M 100.638 ####[facility] [address] [facility] [address] [facility] [address] Serum globulin measurementOr dered By: Jennifer Jon on 08-13-2024 Serum globulin measurement 3.3 g/dL 2.2-4.2 [facility] Serum or plasma alanine nguyen otransferase (ALT) measurementOrdered By: Jennifer Danay on 08-13-2024 Serum or plasma alanine aminotransferase (ALT) measurement 18 U/L 13-56 [facility] Strep pneumoniae Antig(UR,CS F)on 08-13-2024 STPAG Normal [facility] Comment on above: Performed By: #### M 300.8571 ####[facility] [address] [facility] [place], [address] Total proteinOrdered By: Aut umn White on 08-13-2024 Total protein 5.7 g/dL Low 6.4-8.2 [facility] 12 Lead EKGon 08-12-2024 12 Lead EKG Normal [facility] BNP (brain natriuretic pepti de measurement)Ordered By: Tomer Lopez on 08-12-2024 BNP (brain natriuretic peptide measurement) 36.5 pg/mL 0-100 [facility] BNP,B-Type NATRIURETIC PEPTI Jesenia 08-12-2024 Natriuretic peptide B (Bld) [Mass/Vol] 36.5 pg/mL Normal 0-100 [facility] Comment on above: Performed By: #### L 503.6620 ####[facility] [address] [place], [address] Bacteria LM.HPF (Urine sed) [#/Area]Ordered By: Tomer Lopez on 08-12-2024 Urine sediment bacteria count by microscopy (number/high power field) 2+ /hpf None Seen [facility] Blood cultureOrdered By: Afshan Lopez on 08-12-2024 Blood culture No growth in [address] [facility] CBC W/Diff, Automatedon 07-24 Absolute Lymph 0.83 X10 3/uL Normal 0.83-4.51 [facility] Comment on above: Performed By: #### L 503.6005, L501.4020, L500.4050, L300.4310, M200.1000, L100.0100, L300.3900 ####[facility] [address] [place], [address] Absolute Neut 5.9 X10 3/uL Normal 2.0-7.7 [facility] Comment on above: Performed By: #### L 503.6005, L501.4020, L500.4050, L300.4310, M200.1000, L100.0100, L300.3900 ####[facility] [address] [place], [address] Basophils/100 WBC (Bld) 0.7 % Normal 0-[address] [facility] Comment on above: Performed By: #### L 503.6005, L501.4020, L500.4050, L300.4310, M200.1000, L100.0100, L300.3900 ####[facility] [address] [place], [address] Eosinophils/100 WBC (Bld) 6.1 % High 0-5 [facility] Comment on above: Performed By: #### L 503.6005, L501.4020, L500.4050, L300.4310, M200.1000, L100.0100, L300.3900 ####[facility] [address] [place], [address] Erythrocyte distribution width (RBC) [Ratio] 13.2 % Normal 11.6-14.6 [facility] Comment on above: Performed By: #### L 503.6005, L501.4020, L500.4050, L300.4310, M200.1000, L100.0100, L300.3900 ####[facility] [address] [place], [address] Hematocrit (Bld) [Volume fraction] 42.5 % Normal 37-47 [facility] Comment on above: Performed By: #### L 503.6005, L501.4020, L500.4050, L300.4310, M200.1000, L100.0100, L300.3900 ####[facility] [address] [place], [address] Hemoglobin (Bld) [Mass/Vol] 14.2 g/dL Normal 12.0-15.0 [facility] Comment on above: Performed By: #### L 503.6005, L501.4020, L500.4050, L300.4310, M200.1000, L100.0100, L300.3900 ####[facility] [address] [place], [address] IG% 0.500 Normal 0.0-0.9 [facility] Comment on above: Result Comment: IG% - Immature Granulocytes (promyelocytes, myelocytes andmetamyelocytes) > 1% indicates that a LEFT SHIFT is Present. Performed By: #### L 503.6005, L501.4020, L500.4050, L300.4310, M200.1000, L100.0100, L300.3900 ####[facility] [address] [place], [address] Lymphocytes/100 WBC (Bld) 10.1 % Low 19-41 [facility] Comment on above: Performed By: #### L 503.6005, L501.4020, L500.4050, L300.4310, M200.1000, L100.0100, L300.3900 ####[facility] [address] [place], [address] MCH (RBC) [Entitic mass] 27.9 pg Normal 27.0-32.0 [facility] Comment on above: Performed By: #### L 503.6005, L501.4020, L500.4050, L300.4310, M200.1000, L100.0100, L300.3900 ####[facility] [address] [place], [address] MCHC (RBC) [Mass/Vol] 33.4 g/dL Normal 32-36 [facility] Comment on above: Performed By: #### L 503.6005, L501.4020, L500.4050, L300.4310, M200.1000, L100.0100, L300.3900 ####[facility] [address] [place], [address] MCV (RBC) [Entitic vol] 83.5 fL Normal 81-[address] [facility] Comment on above: Performed By: #### L 503.6005, L501.4020, L500.4050, L300.4310, M200.1000, L100.0100, L300.3900 ####[facility] [address] [place], [address] Monocytes/100 WBC (Bld) 11.7 % High 0-[address] [facility] Comment on above: Performed By: #### L 503.6005, L501.4020, L500.4050, L300.4310, M200.1000, L100.0100, L300.3900 ####[facility] [address] [place], [address] Neutrophils/100 WBC (Bld) 70.9 % High 47-70 [facility] Comment on above: Performed By: #### L 503.6005, L501.4020, L500.4050, L300.4310, M200.1000, L100.0100, L300.3900 ####[facility] [address] [place], [address] Nucleated RBC (Bld) [#/Vol] 0 10*3/uL Normal 0-5 [facility] Comment on above: Performed By: #### L 503.6005, L501.4020, L500.4050, L300.4310, M200.1000, L100.0100, L300.3900 ####[facility] [address] [place], [address] Platelet mean volume (Bld) [Entitic vol] 10.4 fL Normal 6.2-12.0 [facility] Comment on above: Performed By: #### L 503.6005, L501.4020, L500.4050, L300.4310, M200.1000, L100.0100, L300.3900 ####[facility] [address] [place], [address] Platelets (Bld) [#/Vol] 270 10*3/uL Normal 150-450 [facility] Comment on above: Performed By: #### L 503.6005, L501.4020, L500.4050, L300.4310, M200.1000, L100.0100, L300.3900 ####[facility] [address] [place], [address] RBC (Bld) [#/Vol] 5.09 10*6/uL Normal 4.2-5.[address] [facility] Comment on above: Performed By: #### L 503.6005, L501.4020, L500.4050, L300.4310, M200.1000, L100.0100, L300.3900 ####[facility] [address] [place], [address] RDW SD 40.3 fl Normal 35.1-43.9 [facility] Comment on above: Performed By: #### L 503.6005, L501.4020, L500.4050, L300.4310, M200.1000, L100.0100, L300.3900 ####[facility] [address] [place], [address] WBC (Bld) [#/Vol] 8.2 10*3/uL Normal 4.4-11.0 [facility] Comment on above: Performed By: #### L 503.6005, L501.4020, L500.4050, L300.4310, M200.1000, L100.0100, L300.3900 ####[facility] [address] [place], [address] Chest PA and Lateralon 08-12 Chest PA and Lateral Normal [facility] Clarity (U)Ordered By: Tomer Lopez on 08-12-2024 Urine clarity Clear Clear [facility] Color (U)Ordered By: Tomer stanton on 08-12-2024 Urine color determination Yellow Yellow [facility] Comprehensive Metabolic Prof ilon 08-12-2024 Albumin [Mass/Vol] 3.0 g/dL Low 3.2-5.0 [facility] Comment on above: Order Comment: 'TROP ' Serial specimen #1, #2 or #3: 1 Performed By: #### L 503.6005, L501.4020, L500.4050, L300.4310, M200.1000, L100.0100, L300.3900 ####[facility] [address] [place], [address] Albumin/Globulin [Mass ratio] 0.8 {ratio} Low 0.9-2.4 [facility] Comment on above: Order Comment: 'TROP ' Serial specimen #1, #2 or #3: 1 Performed By: #### L 503.6005, L501.4020, L500.4050, L300.4310, M200.1000, L100.0100, L300.3900 ####[facility] [address] [place], [address] ALK P 118 U/L High 45-117 [facility] Comment on above: Order Comment: 'TROP ' Serial specimen #1, #2 or #3: 1 Performed By: #### L 503.6005, L501.4020, L500.4050, L300.4310, M200.1000, L100.0100, L300.3900 ####[facility] [address] [place], [address] ALT [Catalytic activity/Vol] 25 U/L Normal 13-56 [facility] Comment on above: Order Comment: 'TROP ' Serial specimen #1, #2 or #3: 1 Performed By: #### L 503.6005, L501.4020, L500.4050, L300.4310, M200.1000, L100.0100, L300.3900 ####[facility] [address] [place], [address] AST [Catalytic activity/Vol] 20 U/L Normal 15-37 [facility] Comment on above: Order Comment: 'TROP ' Serial specimen #1, #2 or #3: 1 Performed By: #### L 503.6005, L501.4020, L500.4050, L300.4310, M200.1000, L100.0100, L300.3900 ####[facility] [address] [place], [address] Bilirubin [Mass/Vol] 0.70 mg/dL Normal 0.20-1.00 [facility] Comment on above: Order Comment: 'TROP ' Serial specimen #1, #2 or #3: 1 Result Comment: For patients on eltrombopag therapy, use of Dimension Kake TBIL is not recommended. Performed By: #### L 503.6005, L501.4020, L500.4050, L300.4310, M200.1000, L100.0100, L300.3900 ####[facility] [address] [place], [address] BUN/CRE 22.5 RATIO High 10-20 [facility] Comment on above: Order Comment: 'TROP ' Serial specimen #1, #2 or #3: 1 Performed By: #### L 503.6005, L501.4020, L500.4050, L300.4310, M200.1000, L100.0100, L300.3900 ####[facility] [address] [place], [address] CA,Total 10.5 mg/dL High 8.5-10.1 [facility] Comment on above: Order Comment: 'TROP ' Serial specimen #1, #2 or #3: 1 Performed By: #### L 503.6005, L501.4020, L500.4050, L300.4310, M200.1000, L100.0100, L300.3900 ####[facility] [address] [place], [address] Chloride [Moles/Vol] 96 mmol/L Low 98-107 [facility] Comment on above: Order Comment: 'TROP ' Serial specimen #1, #2 or #3: 1 Performed By: #### L 503.6005, L501.4020, L500.4050, L300.4310, M200.1000, L100.0100, L300.3900 ####[facility] [address] [place], [address] CO2 [Moles/Vol] 30.0 mmol/L Normal 21.0-32.0 [facility] Comment on above: Order Comment: 'TROP ' Serial specimen #1, #2 or #3: 1 Performed By: #### L 503.6005, L501.4020, L500.4050, L300.4310, M200.1000, L100.0100, L300.3900 ####[facility] [address] [place], [address] Creatinine [Mass/Vol] 0.98 mg/dL Normal 0.55-1.02 [facility] Comment on above: Order Comment: 'TROP ' Serial specimen #1, #2 or #3: 1 Result Comment: The validity of the calculated GFR GFRAA in patients over70 years has not been determined. Clinical correlation isessential. Performed By: #### L 503.6005, L501.4020, L500.4050, L300.4310, M200.1000, L100.0100, L300.3900 ####[facility] [address] [place], [address] EST GFR - AA 70 mL/min Normal >60 [facility] Comment on above: Order Comment: 'TROP ' Serial specimen #1, #2 or #3: 1 Result Comment: Afri can Thai GFR Calc Performed By: #### L 503.6005, L501.4020, L500.4050, L300.4310, M200.1000, L100.0100, L300.3900 ####[facility] [address] [place], [address] GAP 11 Normal 5-15 [facility] Comment on above: Order Comment: 'TROP ' Serial specimen #1, #2 or #3: 1 Performed By: #### L 503.6005, L501.4020, L500.4050, L300.4310, M200.1000, L100.0100, L300.3900 ####[facility] [address] [place], [address] GFR/1.73 sq M.predicted among non-blacks MDRD (S/P/Bld) [Vol rate/Area] 58 mL/min/{1.73_m2} Low >60 [facility] Comment on above: Order Comment: 'TROP ' Serial specimen #1, #2 or #3: 1 Result Comment: Non- GFR Calc Performed By: #### L 503.6005, L501.4020, L500.4050, L300.4310, M200.1000, L100.0100, L300.3900 ####[facility] [address] [place], [address] Globulin (S) [Mass/Vol] 3.8 g/dL Normal 2.2-4.2 [facility] Comment on above: Order Comment: 'TROP ' Serial specimen #1, #2 or #3: 1 Performed By: #### L 503.6005, L501.4020, L500.4050, L300.4310, M200.1000, L100.0100, L300.3900 ####[facility] [address] [place], [address] Glucose [Mass/Vol] 185 mg/dL High 74-106 [facility] Comment on above: Order Comment: 'TROP ' Serial specimen #1, #2 or #3: 1 Result Comment: Fast ing Glucose result greater than or equal to 126 mg/dLsuggests DIABETES MELLITUS per A.D.A. criteria. Performed By: #### L 503.6005, L501.4020, L500.4050, L300.4310, M200.1000, L100.0100, L300.3900 ####[facility] [address] [place], [address] Potassium [Moles/Vol] 2.9 mmol/L Low 3.5-5.1 [facility] Comment on above: Order Comment: 'TROP ' Serial specimen #1, #2 or #3: 1 Performed By: #### L 503.6005, L501.4020, L500.4050, L300.4310, M200.1000, L100.0100, L300.3900 ####[facility] [address] [place], [address] Sodium [Moles/Vol] 137 mmol/L Normal 136-145 [facility] Comment on above: Order Comment: 'TROP ' Serial specimen #1, #2 or #3: 1 Performed By: #### L 503.6005, L501.4020, L500.4050, L300.4310, M200.1000, L100.0100, L300.3900 ####[facility] [address] [place], [address] T PROT 6.8 g/dL Normal 6.4-8.2 [facility] Comment on above: Order Comment: 'TROP ' Serial specimen #1, #2 or #3: 1 Performed By: #### L 503.6005, L501.4020, L500.4050, L300.4310, M200.1000, L100.0100, L300.3900 ####[facility] [address] [place], [address] Urea nitrogen [Mass/Vol] 22 mg/dL High 7-18 [facility] Comment on above: Order Comment: 'TROP ' Serial specimen #1, #2 or #3: 1 Performed By: #### L 503.6005, L501.4020, L500.4050, L300.4310, M200.1000, L100.0100, L300.3900 ####[facility] [address] [place], [place], [address] Emergency Department Summary on 08-12-2024 Emergency Department Summary Normal [facility] Glucose Ql (U)Ordered By: Jay Lopez on 08-12-2024 Urine glucose detection Normal mg/dl Normal [facility] H AND P Exam - Hospitaliston 08-12-2024 H&P Exam - Hospitalist Normal [facility] International normalized rat io (INR) calculationOrdered By: Tomer Lopez on 08-12-2024 International normalized ratio (INR) calculation 1.0 [facility] L501.4020on 08-12-2024 TROPONIN-I HS 29 pg/mL Normal 3.0-54.0 [facility] Comment on above: Order Comment: 'TROP ' Serial specimen #1, #2 or #3: 1 Result Comment: Plea se Note: New Test Units and Gender Specific Reference Ranges. For more information see Policy Stat Procedure Kake High Sensitivity Troponin (TNIH) and attachments. Performed By: #### L 503.6005, L501.4020, L500.4050, L300.4310, M200.1000, L100.0100, L300.3900 ####[facility] [address] [place], [place], [id number] Lactic Acidon 08-12-2024 Lactate [Moles/Vol] 1.3 mmol/L Normal 0.4-1.[address] [facility] Comment on above: Order Comment: Y Performed By: #### L 503.6005, L501.4020, L500.4050, L300.4310, M200.1000, L100.0100, L300.3900 ####[facility] [address] [place], [place], [id number] Lactic acid measurementOrder ed By: Tomer Lopez on 08-12-2024 Lactic acid measurement 1.3 mmol/L 0.4-2.[address] [facility] Leukocyte esterase Test stri p Ql (U)Ordered By: Tomer Lopez on 08-12-2024 Urine leukocyte esterase detection by dipstick 100 /ul High Negative [facility] M100.678on 08-12-2024 M100.678 Pending SARS-CoV-2 (COVID 19) Negative INFLUENZA A Negative INFLUENZA B Negative RSV PCR Negative Normal [facility] Comment on above: Performed By: #### M 100.678 ####[facility] [address] [place], [place], [address] Magnesiumon 08-12-2024 Magnesium [Mass/Vol] 2.2 mg/dL Normal 1.6-2.6 [facility] Comment on above: Performed By: #### L 501.5200 ####[facility] [address] [place], [place], [id number] Magnesium measurementOrdered By: Tomer Lopez on 08-12-2024 Magnesium measurement 2.2 mg/dL 1.6-2.6 [facility] Microscopic analysis of urin e for red blood cells (RBC)Ordered By: Tomer Lopez on 08-12-2024 Microscopic analysis of urine for red blood cells (RBC) 0-5 SEEN /hpf 0-5 [facility] Mucus LM Ql (Urine sed)Order ed By: Tomer Lopez on 08-12-2024 Mucus detection in urine sediment by light microscopy 1+ /hpf [facility] Nitrite Test strip Ql (U)Ord ered By: Tomer Lopez on 08-12-2024 Urine nitrite test by dipstick Positive High Negative [facility] Partial Thromboplast Timeon 08-12-2024 aPTT Coag (Bld) [Time] 28.2 s Normal 24.1-36.2 [facility] Comment on above: Performed By: #### L 503.6005, L501.4020, L500.4050, L300.4310, M200.1000, L100.0100, L300.3900 ####[facility] [address] [place], [place], [address] Procalcitonin [Mass/Vol]Orde red By: Jennifer Jon on 08-12-2024 Serum procalcitonin measurement 0.12 ng/mL High 0.00-0.09 [facility] Protein Test strip Ql (U)Ord ered By: Tomer Lopez on 08-12-2024 Urine protein assay by test strip, semi-quantitative 15 mg/dl High Negative [facility] Prothrombin Time w/INRon INR Coag (PPP) [Relative time] 1.0 {INR} Normal [facility] Comment on above: Performed By: #### L 503.6005, L501.4020, L500.4050, L300.4310, M200.1000, L100.0100, L300.3900 ####[facility] [address] [place], [place], [id number] PT Coag (PPP) [Time] 13.3 s Normal 11.7-14.9 [facility] Comment on above: Performed By: #### L 503.6005, L501.4020, L500.4050, L300.4310, M200.1000, L100.0100, L300.3900 ####[facility] [address] [place], [place], [id number] Prothrombin timeOrdered By: Tomer Lopez on 08-12-2024 Prothrombin time 13.3 SECONDS 11.7-14.9 [facility] Specific gravity (U) [Rel de nsity]Ordered By: Tomer Lopez on 08-12-2024 Urine specific gravity measurement 1.020 1.002-1.030 [facility] Urinalysis, Completeon 08-12 BACTERIA 2+ /hpf Normal None Seen [facility] Comment on above: Order Comment: MADISON CTOR TO SPECIFY Performed By: #### M 100.2200, L400.0001 ####[facility] [address] [place], [place], [address] EPI,RENAL 0-5 SEEN Normal 0-5 [facility] Comment on above: Order Comment: MADISON CTOR TO SPECIFY Performed By: #### M 100.2200, L400.0001 ####[facility] [address] [place], [address] EPI,SQUAMOUS 5-10 SEEN Normal 5-10 [facility] Comment on above: Order Comment: MADISON CTOR TO SPECIFY Performed By: #### M 100.2200, L400.0001 ####[facility] [address] [place], [address] EPI,TRANSITION 0-5 SEEN Normal 0-5 [facility] Comment on above: Order Comment: MADISON CTOR TO SPECIFY Performed By: #### M 100.2200, L400.0001 ####[facility] [address] [place], [address] Mucus Ql (Urine sed) 1+ /hpf Normal [facility] Comment on above: Order Comment: MADISON CTOR TO SPECIFY Performed By: #### M 100.2200, L400.0001 ####[facility] [address] [place], [address] RBC 0-5 SEEN Normal 0-5 [facility] Comment on above: Order Comment: MADISON CTOR TO SPECIFY Performed By: #### M 100.2200, L400.0001 ####[facility] [address] [place], [address] WBC 5-10 SEEN Normal 0-5 [facility] Comment on above: Order Comment: MADISON CTOR TO SPECIFY Performed By: #### M 100.2200, L400.0001 ####[facility] [address] [place], [address] Urine blood detectionOrdered By: Tomer Lopez on 08-12-2024 Urine blood detection 25 /ul High Negative [facility] Urine cultureOrdered By: Afshan Lopez on 08-12-2024 Urine culture Staphylococcus simulans Abnormal [facility] Urine total bilirubin detect ion by test stripOrdered By: Tomer Lopez on 08-12-2024 Urine total bilirubin detection by test strip Negative Negative [facility] Urobilinogen Ql (U)Ordered B y: Tomer Lopez on 08-12-2024 Urine urobilinogen measurement 1 mg/dl High Normal [facility] White blood cell countOrdere d By: Tomer Lopez on 08-12-2024 White blood cell count 5-10 SEEN /hpf 5-10 [facility] aPTT Coag (PPP) [Time]Ordere d By: Tomer Lopez on 08-12-2024 Activated partial thromboplastin time (aPTT) in platelet poor plasma by coagulation a 28.2 Seconds 24.1-36.2 [facility] pH (U)Ordered By: Tomer Madsen jeffrey on 08-12-2024 Urine pH 6.0 5.0 - 8.0 [facility] .Auto Diffon 08-04-2024 Basophil, Absolute 0.1 10 3/mcL Normal 0.0-0.2 [facility] Comment on above: Performed By: #### C BC, GFR, ADIFF, LIPID, TSHR, PHOS, ANEU, BMP #### [address] [address] Basophils/100 WBC (Bld) 1.2 % Normal 0.0-2.5 [facility] Comment on above: Performed By: #### C BC, GFR, ADIFF, LIPID, TSHR, PHOS, ANEU, BMP #### [address] [address] Eosinophil, Absolute 0.3 10 3/mcL Normal 0.0-0.7 [facility] Comment on above: Performed By: #### C BC, GFR, ADIFF, LIPID, TSHR, PHOS, ANEU, BMP #### [address] [address] Eosinophils/100 WBC (Bld) 2.9 % Normal 0.0-7.0 [facility] Comment on above: Performed By: #### C BC, GFR, ADIFF, LIPID, TSHR, PHOS, ANEU, BMP #### [address] [address] Lymphocyte, Absolute 1.3 10 3/mcL Normal 0.9-4.3 [facility] Comment on above: Performed By: #### C BC, GFR, ADIFF, LIPID, TSHR, PHOS, ANEU, BMP #### [address] [address] Lymphocytes/100 WBC (Bld) 12.2 % Low 20.0-40.0 [facility] Comment on above: Performed By: #### C BC, GFR, ADIFF, LIPID, TSHR, PHOS, ANEU, BMP #### [address] [address] Monocyte, Absolute 1.2 10 3/mcL Normal 0.1-1.4 [facility] Comment on above: Performed By: #### C BC, GFR, ADIFF, LIPID, TSHR, PHOS, ANEU, BMP #### [address] [address] Monocytes/100 WBC (Bld) 11.4 % Normal 2.0-13.0 [facility] Comment on above: Performed By: #### C BC, GFR, ADIFF, LIPID, TSHR, PHOS, ANEU, BMP #### [address] [address] Neutrophils/100 WBC (Bld) 72.3 % Normal 50.0-75.0 [facility] Comment on above: Performed By: #### C BC, GFR, ADIFF, LIPID, TSHR, PHOS, ANEU, BMP #### [address] [address] .GFRon 08-04-2024 GFR 74 ml/min/1.73sqm Normal [facility] Comment on above: Result Comment: GFR Population [...] GFR, ADIFF, LIPID, TSHR, PHOS, ANEU, BMP ####[id number] [place], [place] [address] GFR Non- 61 ml/min/1.73sqm Normal [facility] Comment on above: Result Comment: GFR Population [...] GFR, ADIFF, LIPID, TSHR, PHOS, ANEU, BMP ####[id number] [place], [place] [address] .NEUABSon 08-04-2024 Neutrophil, Absolute 7.6 10 3/mcL Normal 2.3-8.1 [facility] Comment on above: Performed By: #### C BC, GFR, ADIFF, LIPID, TSHR, PHOS, ANEU, BMP #### [id number] [place], [place] [address] BMPon 08-04-2024 BUN/Creatinine Ratio 18 ratio Normal 7-27 [facility] Comment on above: Performed By: #### C BC, GFR, ADIFF, LIPID, TSHR, PHOS, ANEU, BMP #### [id number] [place], [place] [address] Calcium [Mass/Vol] 10.5 mg/dL High 8.4-10.2 [facility] Comment on above: Performed By: #### C BC, GFR, ADIFF, LIPID, TSHR, PHOS, ANEU, BMP #### [place] [address] Chloride [Moles/Vol] 103 mmol/L Normal 98-107 [facility] Comment on above: Performed By: #### C BC, GFR, ADIFF, LIPID, TSHR, PHOS, ANEU, BMP #### [place] [address] CO2 [Moles/Vol] 33 mmol/L High 23-31 [facility] Comment on above: Performed By: #### C BC, GFR, ADIFF, LIPID, TSHR, PHOS, ANEU, BMP #### [place] [address] Creatinine [Mass/Vol] 0.89 mg/dL Normal 0.55-1.02 [facility] Comment on above: Result Comment: Test ing performed on FlipGive Dimension EXL analyzer using a modified kinetic Victor M technique. Performed By: #### C BC, GFR, ADIFF, LIPID, TSHR, PHOS, ANEU, BMP #### [place] [address] Electrolyte Balance 4.0 mEq/L Normal 4.0-15.0 [facility] Comment on above: Performed By: #### C BC, GFR, ADIFF, LIPID, TSHR, PHOS, ANEU, BMP #### [place] [address] Glucose [Mass/Vol] 149 mg/dL High 83-110 [facility] Comment on above: Performed By: #### C BC, GFR, ADIFF, LIPID, TSHR, PHOS, ANEU, BMP #### [place] [address] Potassium [Moles/Vol] 3.9 mmol/L Normal 3.5-5.1 [facility] Comment on above: Performed By: #### C BC, GFR, ADIFF, LIPID, TSHR, PHOS, ANEU, BMP #### [address] [address] Sodium [Moles/Vol] 140 mmol/L Normal 136-145 [facility] Comment on above: Performed By: #### C BC, GFR, ADIFF, LIPID, TSHR, PHOS, ANEU, BMP #### [address] [address] Urea nitrogen [Mass/Vol] 16 mg/dL Normal 7-18 [facility] Comment on above: Performed By: #### C BC, GFR, ADIFF, LIPID, TSHR, PHOS, ANEU, BMP #### [address] [address] CBCon 08-04-2024 Erythrocyte distribution width (RBC) [Ratio] 14.0 % Normal 11.5-15.5 [facility] Comment on above: Performed By: #### C BC, GFR, ADIFF, LIPID, TSHR, PHOS, ANEU, BMP #### [address] [address] Hematocrit (Bld) [Volume fraction] 44.7 % Normal 34.0-46.0 [facility] Comment on above: Performed By: #### C BC, GFR, ADIFF, LIPID, TSHR, PHOS, ANEU, BMP #### [address] [address] Hgb 15.0 G/dL Normal 12.0-16.0 [facility] Comment on above: Performed By: #### C BC, GFR, ADIFF, LIPID, TSHR, PHOS, ANEU, BMP #### [address] [address] MCH (RBC) [Entitic mass] 28.7 pg Normal 27.0-33.0 [facility] Comment on above: Performed By: #### C BC, GFR, ADIFF, LIPID, TSHR, PHOS, ANEU, BMP #### [address] [address] MCHC 33.6 G/dL Normal 32.0-36.0 [facility] Comment on above: Performed By: #### C BC, GFR, ADIFF, LIPID, TSHR, PHOS, ANEU, BMP #### [address] [address] MCV (RBC) [Entitic vol] 85.4 fL Normal 80.0-99.0 [facility] Comment on above: Performed By: #### C BC, GFR, ADIFF, LIPID, TSHR, PHOS, ANEU, BMP #### [place] [id number] Platelet 211 10 3/mcL Normal 150-450 [facility] Comment on above: Performed By: #### C BC, GFR, ADIFF, LIPID, TSHR, PHOS, ANEU, BMP #### [place] [id number] Platelet mean volume (Bld) [Entitic vol] 7.9 fL Normal 6.6-10.5 [facility] Comment on above: Performed By: #### C BC, GFR, ADIFF, LIPID, TSHR, PHOS, ANEU, BMP #### [place] [phone] RBC 5.23 10 6/mcL Normal 4.10-5.30 [facility] Comment on above: Performed By: #### C BC, GFR, ADIFF, LIPID, TSHR, PHOS, ANEU, BMP #### [place] [phone] WBC 10.5 10 3/mcL Normal 4.5-10.8 [facility] Comment on above: Performed By: #### C BC, GFR, ADIFF, LIPID, TSHR, PHOS, ANEU, BMP #### [place] [address] LABORATORYOrdered By: SYSTEM SYSTEM on 08-04-2024 Basophils [...] 08-04-2024 Cholesterol [Mass/Vol] 144 mg/dL Normal 0-200 [facility] Comment on above: Result Comment: Chol esterol Reference Interval: Less than 200 Desirable 200-239 Borderline high risk 240 and above High risk Performed By: #### C BC, GFR, ADIFF, LIPID, TSHR, PHOS, ANEU, BMP ####[place] [address] [place], [place] [address] Cholesterol in HDL [Mass/Vol] 53 mg/dL Normal 40-60 [facility] Comment on above: Performed By: #### C BC, GFR, ADIFF, LIPID, TSHR, PHOS, ANEU, BMP ####[facility] [place], [place] [address] Cholesterol in LDL [Mass/Vol] 67 mg/dL Normal 0-130 [facility] Comment on above: Performed By: #### C BC, GFR, ADIFF, LIPID, TSHR, PHOS, ANEU, BMP ####[facility] [place], [place] [address] Triglyceride [Mass/Vol] 118 mg/dL Normal 0-150 [facility] Comment on above: Result Comment: Trig lyceride Reference Interval: Less than 150 Normal 150-199 Borderline high risk 200-499 High risk 500 or higher Very high risk Performed By: #### C BC, GFR, ADIFF, LIPID, TSHR, PHOS, ANEU, BMP ####[address] [place], [place] [address] PHOSon 08-04-2024 Phosphate [Mass/Vol] 2.5 mg/dL Normal 2.3-4.1 [facility] Comment on above: Performed By: #### C BC, GFR, ADIFF, LIPID, TSHR, PHOS, ANEU, BMP ####[place] [address] [place], [place] [address] TSHRon 08-04-2024 TSH Qn 1.32 m[IU]/L Normal 0.36-3.74 [facility] Comment on above: Performed By: #### C BC, GFR, ADIFF, LIPID, TSHR, PHOS, ANEU, BMP ####[place] [address] [place], [place] [address] Chest 1 View (Portable)on Chest 1 View (Portable) Normal [facility] Emergency Department Summary on 07-23-2024 Emergency Department Summary Normal [facility] Respiratory Cultureon 2023 RESPC Mixed normal respiratory blanca. No Haemophilus, Streptococcus pneumoniae, beta-hemolytic Streptococcus or Staphylococcus aureus isolated. Normal [facility] Comment on above: Performed By: #### M 100.2000, M100.2400 ####[facility] [address] [place], [address] CBC W/Diff, Automatedon 12-3 0-2023 Absolute Neut Normal 2.0-7.7 [facility] Comment on above: Result Comment: Canc elled via OM: Order cancelled - Patient discharged Performed By: #### L 100.0100, L500.4050 ####[facility] [address] [place], [address] HCT Normal 37-47 [facility] Comment on above: Result Comment: Canc elled via OM: Order cancelled - Patient discharged Performed By: #### L 100.0100, L500.4050 ####[facility] [address] [place], [address] HGB Normal 12.0-15.0 [facility] Comment on above: Result Comment: Canc elled via OM: Order cancelled - Patient discharged Performed By: #### L 100.0100, L500.4050 ####[facility] [address] [place], [address] MCH Normal 27.0-32.0 [facility] Comment on above: Result Comment: Canc elled via OM: Order cancelled - Patient discharged Performed By: #### L 100.0100, L500.4050 ####[facility] [address] [place], [address] MCHC Normal 32-36 [facility] Comment on above: Result Comment: Canc elled via OM: Order cancelled - Patient discharged Performed By: #### L 100.0100, L500.4050 ####[facility] [address] [place], [address] MCV Normal 81-99 [facility] Comment on above: Result Comment: Canc elled via OM: Order cancelled - Patient discharged Performed By: #### L 100.0100, L500.4050 ####[facility] [address] [place], [address] NEUT% Normal 47-70 [facility] Comment on above: Result Comment: Canc elled via OM: Order cancelled - Patient discharged Performed By: #### L 100.0100, L500.4050 ####[facility] [address] [place], [address] PLT Normal 150-450 [facility] Comment on above: Result Comment: Canc elled via OM: Order cancelled - Patient discharged Performed By: #### L 100.0100, L500.4050 ####[facility] [address] [place], [address] RBC Normal 4.2-5.4 [facility] Comment on above: Result Comment: Canc elled via OM: Order cancelled - Patient discharged Performed By: #### L 100.0100, L500.4050 ####[facility] [address] [place], [address] RDW CV Normal 11.6-14.6 [facility] Comment on above: Result Comment: Canc elled via OM: Order cancelled - Patient discharged Performed By: #### L 100.0100, L500.4050 ####[facility] [address] [place], [address] RDW SD Normal 35.1-43.9 [facility] Comment on above: Result Comment: Canc elled via OM: Order cancelled - Patient discharged Performed By: #### L 100.0100, L500.4050 ####[facility] [address] [place], [address] WBC Normal 4.4-11.0 [facility] Comment on above: Result Comment: Canc elled via OM: Order cancelled - Patient discharged Performed By: #### L 100.0100, L500.4050 ####[facility] [address] [place], [address] Comprehensive Metabolic Prof ilon 07-21-2024 ALB Normal 3.2-5.0 [facility] Comment on above: Result Comment: Canc elled via OM: Order cancelled - Patient discharged Performed By: #### L 100.0100, L500.4050 ####[facility] [address] [place], [address] ALK P Normal 45-117 [facility] Comment on above: Result Comment: Canc elled via OM: Order cancelled - Patient discharged Performed By: #### L 100.0100, L500.4050 ####[facility] [address] [place], [address] ALT Normal 13-56 [facility] Comment on above: Result Comment: Canc elled via OM: Order cancelled - Patient discharged Performed By: #### L 100.0100, L500.4050 ####[facility] [address] [place], [address] AST Normal 15-37 [facility] Comment on above: Result Comment: Canc elled via OM: Order cancelled - Patient discharged Performed By: #### L 100.0100, L500.4050 ####[facility] [address] [place], [address] BUN Normal 7-18 [facility] Comment on above: Result Comment: Canc elled via OM: Order cancelled - Patient discharged Performed By: #### L 100.0100, L500.4050 ####[facility] [address] [place], [address] BUN/CRE Normal 10-20 [facility] Comment on above: Result Comment: Canc elled via OM: Order cancelled - Patient discharged Performed By: #### L 100.0100, L500.4050 ####[facility] [address] [place], [address] CA,Total Normal 8.5-10.1 [facility] Comment on above: Result Comment: Canc elled via OM: Order cancelled - Patient discharged Performed By: #### L 100.0100, L500.4050 ####[facility] [address] [place], [address] CL Normal 98-107 [facility] Comment on above: Result Comment: Canc elled via OM: Order cancelled - Patient discharged Performed By: #### L 100.0100, L500.4050 ####[facility] [address] [place], [address] CO2 Normal 21.0-32.0 [facility] Comment on above: Result Comment: Canc elled via OM: Order cancelled - Patient discharged Performed By: #### L 100.0100, L500.4050 ####[facility] [address] [place], [address] CREAT,SERUM Normal 0.55-1.02 [facility] Comment on above: Result Comment: Canc elled via OM: Order cancelled - Patient discharged Performed By: #### L 100.0100, L500.4050 ####[facility] [address] [place], [address] EST GFR Normal >60 [facility] Comment on above: Result Comment: Canc elled via OM: Order cancelled - Patient discharged Performed By: #### L 100.0100, L500.4050 ####[facility] [address] [place], [address] EST GFR - AA Normal >60 [facility] Comment on above: Result Comment: Canc elled via OM: Order cancelled - Patient discharged Performed By: #### L 100.0100, L500.4050 ####[facility] [address] [place], [address] GAP Normal 5-15 [facility] Comment on above: Result Comment: Canc elled via OM: Order cancelled - Patient discharged Performed By: #### L 100.0100, L500.4050 ####[facility] [address] [place], [address] GLU Normal 74-106 [facility] Comment on above: Result Comment: Canc elled via OM: Order cancelled - Patient discharged Performed By: #### L 100.0100, L500.4050 ####[facility] [address] [place], [address] Potassium Normal 3.5-5.1 [facility] Comment on above: Result Comment: Canc elled via OM: Order cancelled - Patient discharged Performed By: #### L 100.0100, L500.4050 ####[facility] [address] [place], [address] T BILI Normal 0.20-1.00 [facility] Comment on above: Result Comment: Canc elled via OM: Order cancelled - Patient discharged Performed By: #### L 100.0100, L500.4050 ####[facility] [address] [place], [address] T PROT Normal 6.4-8.2 [facility] Comment on above: Result Comment: Canc elled via OM: Order cancelled - Patient discharged Performed By: #### L 100.0100, L500.4050 ####[facility] [address] [place], [address] Comprehensive Metabolic Profil Normal 136-145 [facility] Comment on above: Result Comment: Canc elled via OM: Order cancelled - Patient discharged Performed By: #### L 100.0100, L500.4050 ####[facility] [address] [place], [address] ALP [Catalytic activity/Vol] Ordered By: Jennifer Jon on 07-20-2024 Serum or plasma alkaline phosphatase measurement 101 U/L 45-117 [facility] ALT [Catalytic activity/Vol] Ordered By: Jennifer Jon on 07-20-2024 Serum or plasma alanine aminotransferase (ALT) measurement 28 U/L 13-56 [facility] Absolute neutrophil countOrd ered By: Jennifer Danay on 07-20-2024 Absolute neutrophil count 9.9 X10^3/uL High 2.0-7.7 [facility] Albumin [Mass/Vol]Ordered By : Jennifer White on 07-20-2024 Serum or plasma albumin measurement (mass/volume) 2.6 g/dL Low 3.2-5.0 [facility] Albumin to globulin ratioOrd ered By: Jennifer White on 07-20-2024 Albumin to globulin ratio 0.7 RATIO Low 0.9-2.4 [facility] Basophil percentageOrdered B y: Jennifer Danay on 07-20-2024 Basophil percentage 0.2 % 0-[address] [facility] Bilirubin, totalOrdered By: Jennifer Danay on 07-20-2024 Bilirubin, total 0.20 mg/dL 0.20-1.00 [facility] Blood urea nitrogen (BUN)/cr eatinine ratioOrdered By: Jennifer Danay on 07-20-2024 Blood urea nitrogen (BUN)/creatinine ratio 36.2 RATIO High 10-20 [facility] CBC W/Diff, Automatedon 12 Absolute Lymph 0.56 X10 3/uL Low 0.83-4.51 [facility] Comment on above: Performed By: #### L 500.4050, L100.0100 ####[facility] [address] [place], [address] Absolute Neut 9.9 X10 3/uL High 2.0-7.7 [facility] Comment on above: Performed By: #### L 500.4050, L100.0100 ####[facility] [address] [place], [address] Basophils/100 WBC (Bld) 0.2 % Normal 0-[address] [facility] Comment on above: Performed By: #### L 500.4050, L100.0100 ####[facility] [address] [place], [address] Eosinophils/100 WBC (Bld) 0.0 % Normal 0-5 [facility] Comment on above: Performed By: #### L 500.4050, L100.0100 ####[facility] [address] [place], [address] Erythrocyte distribution width (RBC) [Ratio] 13.1 % Normal 11.6-14.6 [facility] Comment on above: Performed By: #### L 500.4050, L100.0100 ####[facility] [address] [place], [address] Hematocrit (Bld) [Volume fraction] 40.0 % Normal 37-47 [facility] Comment on above: Performed By: #### L 500.4050, L100.0100 ####[facility] [address] [place], [address] Hemoglobin (Bld) [Mass/Vol] 12.8 g/dL Normal 12.0-15.0 [facility] Comment on above: Performed By: #### L 500.4050, L100.0100 ####[facility] [address] [place], [address] IG% 0.700 Normal 0.0-0.9 [facility] Comment on above: Result Comment: IG% - Immature Granulocytes (promyelocytes, myelocytes andmetamyelocytes) > 1% indicates that a LEFT SHIFT is Present. Performed By: #### L 500.4050, L100.0100 ####[facility] [address] [place], [address] Lymphocytes/100 WBC (Bld) 5.0 % Low 19-41 [facility] Comment on above: Performed By: #### L 500.4050, L100.0100 ####[facility] [address] [place], [address] MCH (RBC) [Entitic mass] 28.3 pg Normal 27.0-32.0 [facility] Comment on above: Performed By: #### L 500.4050, L100.0100 ####[facility] [address] [place], [address] MCHC (RBC) [Mass/Vol] 32.0 g/dL Normal 32-36 [facility] Comment on above: Performed By: #### L 500.4050, L100.0100 ####[facility] [address] [place], [address] MCV (RBC) [Entitic vol] 88.3 fL Normal 81-99 [facility] Comment on above: Performed By: #### L 500.4050, L100.0100 ####[facility] [address] [place], [address] Monocytes/100 WBC (Bld) 5.7 % Normal 0-10 [facility] Comment on above: Performed By: #### L 500.4050, L100.0100 ####[facility] [address] [place], [address] Neutrophils/100 WBC (Bld) 88.4 % High 47-70 [facility] Comment on above: Performed By: #### L 500.4050, L100.0100 ####[facility] [address] [place], [address] Nucleated RBC (Bld) [#/Vol] 0 10*3/uL Normal 0-5 [facility] Comment on above: Performed By: #### L 500.4050, L100.0100 ####[facility] [address] [place], [address] Platelet mean volume (Bld) [Entitic vol] 10.8 fL Normal 6.2-12.0 [facility] Comment on above: Performed By: #### L 500.4050, L100.0100 ####[facility] [address] [place], [address] Platelets (Bld) [#/Vol] 263 10*3/uL Normal 150-450 [facility] Comment on above: Performed By: #### L 500.4050, L100.0100 ####[facility] [address] [place], [address] RBC (Bld) [#/Vol] 4.53 10*6/uL Normal 4.2-5.[address] [facility] Comment on above: Performed By: #### L 500.4050, L100.0100 ####[facility] [address] [place], [address] RDW SD 42.5 fl Normal 35.1-43.9 [facility] Comment on above: Performed By: #### L 500.4050, L100.0100 ####[facility] [address] [place], [address] WBC (Bld) [#/Vol] 11.1 10*3/uL High 4.4-11.[address] [facility] Comment on above: Performed By: #### L 500.4050, L100.0100 ####[facility] [address] [place], [address] Calcium [Mass/Vol]Ordered By : Jennifer Jon on 07-20-2024 Serum or plasma calcium measurement (mass/volume) 10.5 mg/dL High 8.5-10.1 [facility] Carbon dioxide measurementOr dered By: Jennifer Jon on 07-20-2024 Carbon dioxide measurement 27.0 mmol/L 21.0-32.0 [facility] Chloride measurementOrdered By: Jennifer Jon on 07-20-2024 Chloride measurement 108 mmol/L High 98-107 [facility] Comprehensive Metabolic Prof ilon 07-20-2024 Albumin [Mass/Vol] 2.6 g/dL Low 3.2-5.0 [facility] Comment on above: Performed By: #### L 500.4050, L100.0100 ####[facility] [address] [place], [address] Albumin/Globulin [Mass ratio] 0.7 {ratio} Low 0.9-2.4 [facility] Comment on above: Performed By: #### L 500.4050, L100.0100 ####[facility] [address] [place], [address] ALK P 101 U/L Normal 45-117 [facility] Comment on above: Performed By: #### L 500.4050, L100.0100 ####[facility] [address] [place], [address] ALT [Catalytic activity/Vol] 28 U/L Normal 13-56 [facility] Comment on above: Performed By: #### L 500.4050, L100.0100 ####[facility] [address] [place], [address] AST [Catalytic activity/Vol] 22 U/L Normal 15-37 [facility] Comment on above: Performed By: #### L 500.4050, L100.0100 ####[facility] [address] [place], [address] Bilirubin [Mass/Vol] 0.20 mg/dL Normal 0.20-1.00 [facility] Comment on above: Result Comment: For patients on eltrombopag therapy, use of Dimension Kake TBIL is not recommended. Performed By: #### L 500.4050, L100.0100 ####[facility] [address] [place], [address] BUN/CRE 36.2 RATIO High 10-20 [facility] Comment on above: Performed By: #### L 500.4050, L100.0100 ####[facility] [address] [place], [address] CA,Total 10.5 mg/dL High 8.5-10.1 [facility] Comment on above: Performed By: #### L 500.4050, L100.0100 ####[facility] [address] [place], [address] Chloride [Moles/Vol] 108 mmol/L High 98-107 [facility] Comment on above: Performed By: #### L 500.4050, L100.0100 ####[facility] [address] [place], [address] CO2 [Moles/Vol] 27.0 mmol/L Normal 21.0-32.0 [facility] Comment on above: Performed By: #### L 500.4050, L100.0100 ####[facility] [address] [place], [address] Creatinine [Mass/Vol] 0.69 mg/dL Normal 0.55-1.02 [facility] Comment on above: Result Comment: The validity of the calculated GFR GFRAA in patients over70 years has not been determined. Clinical correlation isessential. Performed By: #### L 500.4050, L100.0100 ####[facility] [address] [place], [address] ECRCL 50.45 ml/min Normal [facility] Comment on above: Performed By: #### L 500.4050, L100.0100 ####[facility] [address] [place], [address] EST GFR - AA 104 mL/min Normal >60 [facility] Comment on above: Result Comment: Afri can Thai GFR Calc Performed By: #### L 500.4050, L100.0100 ####[facility] [address] [place], [address] GAP 3 Low 5-15 [facility] Comment on above: Performed By: #### L 500.4050, L100.0100 ####[facility] [address] [place], [address] GFR/1.73 sq M.predicted among non-blacks MDRD (S/P/Bld) [Vol rate/Area] 86 mL/min/{1.73_m2} Normal >60 [facility] Comment on above: Result Comment: Non- GFR Calc Performed By: #### L 500.4050, L100.0100 ####[facility] [address] [place], [address] Globulin (S) [Mass/Vol] 3.5 g/dL Normal 2.2-4.[address] [facility] Comment on above: Performed By: #### L 500.4050, L100.0100 ####[facility] [address] [place], [address] Glucose [Mass/Vol] 186 mg/dL High 74-106 [facility] Comment on above: Result Comment: Fast ing Glucose result greater than or equal to 126 mg/dLsuggests DIABETES MELLITUS per A.D.A. criteria. Performed By: #### L 500.4050, L100.0100 ####[facility] [address] [place], [address] Potassium [Moles/Vol] 3.9 mmol/L Normal 3.5-5.1 [facility] Comment on above: Performed By: #### L 500.4050, L100.0100 ####[facility] [address] [place], [address] Sodium [Moles/Vol] 138 mmol/L Normal 136-145 [facility] Comment on above: Performed By: #### L 500.4050, L100.0100 ####[facility] [address] [place], [address] T PROT 6.1 g/dL Low 6.4-8.2 [facility] Comment on above: Performed By: #### L 500.4050, L100.0100 ####[facility] [address] [place], [address] Urea nitrogen [Mass/Vol] 25 mg/dL High 7-18 [facility] Comment on above: Performed By: #### L 500.4050, L100.0100 ####[facility] [address] [place], [address] Creatinine [Mass/Vol]Ordered By: Jennifer Danay on 07-20-2024 Serum or plasma creatinine measurement (mass/volume) 0.69 mg/dL 0.55-1.02 [facility] Discharge Instructionon 06-23 Discharge Instruction Normal [facility] Eosinophil percentageOrdered By: [facility] Danay on 07-20-2024 Eosinophil percentage 0.0 % 0-5 [facility] Erythrocyte distribution wid th (RBC) [Ratio]Ordered By: [facility] Danay on 07-20-2024 Erythrocyte distribution width ratio 13.1 % 11.6-14.6 [facility] Erythrocyte distribution width standard deviation 42.5 fl 35.1-43.9 [facility] Estimated glomerular filtrat ion rate (GFR) AmericanOrdered By: Jennifer Danay on 07-20-2024 Estimated glomerular filtration rate (GFR) 104 mL/min >60 [facility] Estimation of creatinine hernando aranceOrdered By: [facility] Danay on 07-20-2024 Estimation of creatinine clearance 50.45 ml/min [facility] Glomerular filtration rate ( GFR) estimationOrdered By: [facility] Danay on 07-20-2024 Glomerular filtration rate (GFR) estimation 86 mL/min >60 [facility] Glucose measurementOrdered B y: Jennifer Jon on 07-20-2024 Glucose measurement 186 mg/dL High 74-[address] [facility] Gram Stainon 07-20-2024 GS Acceptable Specimen? Yes (<25 Epithelial cells per/lpf) Gram Stain 1+ Gram positive cocci Rare Gram negative rods 1+ White Blood Cells No Epithelial cells Normal [facility] Comment on above: Performed By: #### M 100.2000, M100.2400 ####[facility] [address] [place], [address] Hematocrit Auto (Bld) [Volum e fraction]Ordered By: Jennifer Jon on 07-20-2024 Automated blood hematocrit (percentage) 40.0 % 37-47 [facility] Hemoglobin measurementOrdere d By: Jennifer Danay on 07-20-2024 Hemoglobin measurement 12.8 g/dL 12.0-15.0 [facility] Immature granulocytes/100 WB C Auto (Bld)Ordered By: Jennifer Danay on 07-20-2024 Automated immature granulocyte percentage 0.700 % 0.0-0.9 [facility] Lymphocytes Auto (Unsp spec) [#/Vol]Ordered By: Jennifer Jon on 07-20-2024 Absolute lymphocyte count 0.56 X10^3/uL Low 0.83-4.51 [facility] Lymphocytes/100 WBC Auto (Un sp spec)Ordered By: Jennifer Jon on 07-20-2024 Automated lymphocyte count as percentage of total leukocytes 5.0 % Low 19-41 [facility] MCV (RBC) [Entitic vol]Order ed By: Jennifer Jon on 07-20-2024 MCV (mean corpuscular volume) determination 88.3 fL 81-99 [facility] Mean corpuscular hemoglobin (MCH) determinationOrdered By: Jennifer Danay on 07-20-2024 Mean corpuscular hemoglobin (MCH) determination 28.3 pg 27.0-32.0 [facility] Mean corpuscular hemoglobin concentration (MCHC) determinationOrdered By: Jennifer Danay on 07-20-2024 Mean corpuscular hemoglobin concentration (MCHC) determination 32.0 g/dL 32-36 [facility] Mean platelet volume determi nationOrdered By: Jennifer Danay on 07-20-2024 Mean platelet volume determination 10.8 fl 6.2-12.0 [facility] Monocyte percentageOrdered B y: Jennifer Jon on 07-20-2024 Monocyte percentage 5.7 % 0-[address] [facility] Neutrophil percentageOrdered By: Jennifer White on 07-20-2024 Neutrophil percentage 88.4 % High 47-70 [facility] No Panel InformationOrdered By: Jennifer Jon on 07-20-2024 22 U/L 15-37 [facility] Nucleated red blood cell per centageOrdered By: Jennifer Jon on 07-20-2024 Nucleated red blood cell percentage 0 % 0-5 [facility] Phosphoruson 07-20-2024 Phosphate [Mass/Vol] 3.0 mg/dL Normal 2.5-4.9 [facility] Comment on above: Performed By: #### L 501.2300 ####[facility] [address] [place], [address] Phosphorus measurementOrdere d By: Jennifer Jon on 07-20-2024 Phosphorus measurement 3.0 mg/dL 2.5-4.9 [facility] Platelet countOrdered By: Karen bridget Danay on 07-20-2024 Platelet count 263 K/mm3 150-450 [facility] Potassium measurementOrdered By: Jennifer Danay on 07-20-2024 Potassium measurement 3.9 mmol/L 3.5-5.1 [facility] RBC Auto (Bld) [#/Vol]Ordere d By: Jennifer Danay on 07-20-2024 Automated blood erythrocyte count 4.53 M/mm3 4.2-5.4 [facility] Serum anion gap measurementO rdered By: Jennifer White on 07-20-2024 Serum anion gap measurement 3 Low 5-15 [facility] Serum globulin measurementOr dered By: Jennifer White on 07-20-2024 Serum globulin measurement 3.5 g/dL 2.2-4.2 [facility] Sodium levelOrdered By: Cheu mn White on 07-20-2024 Sodium level 138 mmol/L 136-145 [facility] Total proteinOrdered By: Aut umn White on 07-20-2024 Total protein 6.1 g/dL Low 6.4-8.2 [facility] Urea nitrogen [Mass/Vol]Orde red By: Jennifer White on 07-20-2024 Serum or plasma urea nitrogen measurement (mass/volume) 25 mg/dL High 7-18 [facility] White blood cell (WBC) count Ordered By: Jennifer White on 07-20-2024 White blood cell (WBC) count 11.1 K/mm3 High 4.4-11.0 [facility] CBC W/Diff, Automatedon 12 Absolute Lymph 0.38 X10 3/uL Low 0.83-4.51 [facility] Comment on above: Performed By: #### L 100.0100 ####[facility] [address] [place], [address] Absolute Neut 15.0 X10 3/uL High 2.0-7.7 [facility] Comment on above: Performed By: #### L 100.0100 ####[facility] [address] [place], [address] Basophils/100 WBC (Bld) 0.1 % Normal 0-[address] [facility] Comment on above: Performed By: #### L 100.0100 ####[facility] [address] [place], [address] Eosinophils/100 WBC (Bld) 0.0 % Normal 0-5 [facility] Comment on above: Performed By: #### L 100.0100 ####[facility] [address] [place], [address] Erythrocyte distribution width (RBC) [Ratio] 13.1 % Normal 11.6-14.6 [facility] Comment on above: Performed By: #### L 100.0100 ####[facility] [address] [place], [address] Hematocrit (Bld) [Volume fraction] 41.9 % Normal 37-47 [facility] Comment on above: Performed By: #### L 100.0100 ####[facility] [address] [place], [address] Hemoglobin (Bld) [Mass/Vol] 13.2 g/dL Normal 12.0-15.0 [facility] Comment on above: Performed By: #### L 100.0100 ####[facility] [address] [place], [address] IG% 0.400 Normal 0.0-0.9 [facility] Comment on above: Result Comment: IG% - Immature Granulocytes (promyelocytes, myelocytes andmetamyelocytes) > 1% indicates that a LEFT SHIFT is Present. Performed By: #### L 100.0100 ####[facility] [address] [place], [address] Lymphocytes/100 WBC (Bld) 2.4 % Low 19-41 [facility] Comment on above: Performed By: #### L 100.0100 ####[facility] [address] [place], [address] MCH (RBC) [Entitic mass] 28.2 pg Normal 27.0-32.0 [facility] Comment on above: Performed By: #### L 100.0100 ####[facility] [address] [place], [address] MCHC (RBC) [Mass/Vol] 31.5 g/dL Low 32-36 [facility] Comment on above: Performed By: #### L 100.0100 ####[facility] [address] [place], [address] MCV (RBC) [Entitic vol] 89.5 fL Normal 81-99 [facility] Comment on above: Performed By: #### L 100.0100 ####[facility] [address] [place], [address] Monocytes/100 WBC (Bld) 2.4 % Normal 0-10 [facility] Comment on above: Performed By: #### L 100.0100 ####[facility] [address] [place], [address] Neutrophils/100 WBC (Bld) 94.7 % High 47-70 [facility] Comment on above: Performed By: #### L 100.0100 ####[facility] [address] [place], [address] Nucleated RBC (Bld) [#/Vol] 0 10*3/uL Normal 0-5 [facility] Comment on above: Performed By: #### L 100.0100 ####[facility] [address] [place], [address] Platelet mean volume (Bld) [Entitic vol] 10.6 fL Normal 6.2-12.0 [facility] Comment on above: Performed By: #### L 100.0100 ####[facility] [address] [place], [address] Platelets (Bld) [#/Vol] 245 10*3/uL Normal 150-450 [facility] Comment on above: Performed By: #### L 100.0100 ####[facility] [address] [place], [address] RBC (Bld) [#/Vol] 4.68 10*6/uL Normal 4.2-5.[address] [facility] Comment on above: Performed By: #### L 100.0100 ####[facility] [address] [place], [address] RDW SD 42.6 fl Normal 35.1-43.9 [facility] Comment on above: Performed By: #### L 100.0100 ####[facility] [address] [place], [address] WBC (Bld) [#/Vol] 15.9 10*3/uL High 4.4-11.[address] [facility] Comment on above: Performed By: #### L 100.0100 ####[facility] [address] [place], [address] Chest PA and Lateralon 07-19 Chest PA and Lateral Normal [facility] Comprehensive Metabolic Prof ilon 07-19-2024 Albumin [Mass/Vol] 2.6 g/dL Low 3.2-5.0 [facility] Comment on above: Performed By: #### L 501.5200, L501.2300, L500.4050 ####[facility] [address] [place], [address] Albumin/Globulin [Mass ratio] 0.7 {ratio} Low 0.9-2.4 [facility] Comment on above: Performed By: #### L 501.5200, L501.2300, L500.4050 ####[facility] [address] [place], [address] ALK P 104 U/L Normal 45-117 [facility] Comment on above: Performed By: #### L 501.5200, L501.2300, L500.4050 ####[facility] [address] [place], [address] ALT [Catalytic activity/Vol] 18 U/L Normal 13-56 [facility] Comment on above: Performed By: #### L 501.5200, L501.2300, L500.4050 ####[facility] [address] [place], [address] AST [Catalytic activity/Vol] 20 U/L Normal 15-37 [facility] Comment on above: Performed By: #### L 501.5200, L501.2300, L500.4050 ####[facility] [address] [place], [address] Bilirubin [Mass/Vol] 0.40 mg/dL Normal 0.20-1.00 [facility] Comment on above: Result Comment: For patients on eltrombopag therapy, use of Dimension Kake TBIL is not recommended. Performed By: #### L 501.5200, L501.2300, L500.4050 ####[facility] [address] [place], [address] BUN/CRE 26.8 RATIO High 10-20 [facility] Comment on above: Performed By: #### L 501.5200, L501.2300, L500.4050 ####[facility] [address] [place], [address] CA,Total 10.2 mg/dL High 8.5-10.1 [facility] Comment on above: Performed By: #### L 501.5200, L501.2300, L500.4050 ####[facility] [address] [place], [address] Chloride [Moles/Vol] 110 mmol/L High 98-107 [facility] Comment on above: Performed By: #### L 501.5200, L501.2300, L500.4050 ####[facility] [address] [place], [address] CO2 [Moles/Vol] 23.0 mmol/L Normal 21.0-32.0 [facility] Comment on above: Performed By: #### L 501.5200, L501.2300, L500.4050 ####[facility] [address] [place], [address] Creatinine [Mass/Vol] 0.78 mg/dL Normal 0.55-1.02 [facility] Comment on above: Result Comment: The validity of the calculated GFR GFRAA in patients over70 years has not been determined. Clinical correlation isessential. Performed By: #### L 501.5200, L501.2300, L500.4050 ####[facility] [address] [place], [address] ECRCL 49.63 ml/min Normal [facility] Comment on above: Performed By: #### L 501.5200, L501.2300, L500.4050 ####[facility] [address] [place], [address] EST GFR - AA 90 mL/min Normal >60 [facility] Comment on above: Result Comment: Afri can Thai GFR Calc Performed By: #### L 501.5200, L501.2300, L500.4050 ####[facility] [address] [place], [address] GAP 6 Normal 5-15 [facility] Comment on above: Performed By: #### L 501.5200, L501.2300, L500.4050 ####[facility] [address] [place], [address] GFR/1.73 sq M.predicted among non-blacks MDRD (S/P/Bld) [Vol rate/Area] 75 mL/min/{1.73_m2} Normal >60 [facility] Comment on above: Result Comment: Non- GFR Calc Performed By: #### L 501.5200, L501.2300, L500.4050 ####[facility] [address] [place], [address] Globulin (S) [Mass/Vol] 3.6 g/dL Normal 2.2-4.2 [facility] Comment on above: Performed By: #### L 501.5200, L501.2300, L500.4050 ####[facility] [address] [place], [address] Glucose [Mass/Vol] 184 mg/dL High 74-106 [facility] Comment on above: Result Comment: Fast ing Glucose result greater than or equal to 126 mg/dLsuggests DIABETES MELLITUS per A.D.A. criteria. Performed By: #### L 501.5200, L501.2300, L500.4050 ####[facility] [address] [place], [address] Potassium [Moles/Vol] 4.3 mmol/L Normal 3.5-5.1 [facility] Comment on above: Performed By: #### L 501.5200, L501.2300, L500.4050 ####[facility] [address] [place], [address] Sodium [Moles/Vol] 139 mmol/L Normal 136-145 [facility] Comment on above: Performed By: #### L 501.5200, L501.2300, L500.4050 ####[facility] [address] [place], [address] T PROT 6.2 g/dL Low 6.4-8.2 [facility] Comment on above: Performed By: #### L 501.5200, L501.2300, L500.4050 ####[facility] [address] [place], [address] Urea nitrogen [Mass/Vol] 21 mg/dL High - [facility] Comment on above: Performed By: #### L 501.5200, L501.2300, L500.4050 ####[facility] [address] [place], [address] Magnesiumon 07-19-2024 Magnesium [Mass/Vol] 2.2 mg/dL Normal 1.6-2.6 [facility] Comment on above: Performed By: #### L 501.5200, L501.2300, L500.4050 ####[facility] [address] [place], [address] Magnesium measurementOrdered By: Niall So on 07-19-2024 Magnesium measurement 2.2 mg/dL 1.6-2.6 [facility] Phosphoruson 07-19-2024 Phosphate [Mass/Vol] 2.4 mg/dL Low 2.5-4.9 [facility] Comment on above: Performed By: #### L 501.5200, L501.2300, L500.4050 ####[facility] [address] [place], [address] CBC W/Diff, Automatedon - Absolute Lymph 1.48 X10 3/uL Normal 0.83-4.51 [facility] Comment on above: Performed By: #### L 500.4050, L100.0100, L501.2300, L501.5200 ####[facility] [address] [place], [address] Absolute Neut 10.2 X10 3/uL High 2.0-7.7 [facility] Comment on above: Performed By: #### L 500.4050, L100.0100, L501.2300, L501.5200 ####[facility] [address] [place], [address] Basophils/100 WBC (Bld) 0.5 % Normal 0-[address] [facility] Comment on above: Performed By: #### L 500.4050, L100.0100, L501.2300, L501.5200 ####[facility] [address] [place], [address] Eosinophils/100 WBC (Bld) 2.3 % Normal 0-5 [facility] Comment on above: Performed By: #### L 500.4050, L100.0100, L501.2300, L501.5200 ####[facility] [address] [place], [address] Erythrocyte distribution width (RBC) [Ratio] 13.2 % Normal 11.6-14.6 [facility] Comment on above: Performed By: #### L 500.4050, L100.0100, L501.2300, L501.5200 ####[facility] [address] [place], [address] Hematocrit (Bld) [Volume fraction] 41.3 % Normal 37-47 [facility] Comment on above: Performed By: #### L 500.4050, L100.0100, L501.2300, L501.5200 ####[facility] [address] [place], [address] Hemoglobin (Bld) [Mass/Vol] 13.2 g/dL Normal 12.0-15.0 [facility] Comment on above: Performed By: #### L 500.4050, L100.0100, L501.2300, L501.5200 ####[facility] [address] [place], [address] IG% 0.300 Normal 0.0-0.9 [facility] Comment on above: Result Comment: IG% - Immature Granulocytes (promyelocytes, myelocytes andmetamyelocytes) > 1% indicates that a LEFT SHIFT is Present. Performed By: #### L 500.4050, L100.0100, L501.2300, L501.5200 ####[facility] [address] [place], [address] Lymphocytes/100 WBC (Bld) 11.4 % Low 19-41 [facility] Comment on above: Performed By: #### L 500.4050, L100.0100, L501.2300, L501.5200 ####[facility] [address] [place], [address] MCH (RBC) [Entitic mass] 28.1 pg Normal 27.0-32.0 [facility] Comment on above: Performed By: #### L 500.4050, L100.0100, L501.2300, L501.5200 ####[facility] [address] [place], [address] MCHC (RBC) [Mass/Vol] 32.0 g/dL Normal 32-36 [facility] Comment on above: Performed By: #### L 500.4050, L100.0100, L501.2300, L501.5200 ####[facility] [address] [place], [address] MCV (RBC) [Entitic vol] 88.1 fL Normal 81-[address] [facility] Comment on above: Performed By: #### L 500.4050, L100.0100, L501.2300, L501.5200 ####[facility] [address] [place], [address] Monocytes/100 WBC (Bld) 7.5 % Normal 0-[address] [facility] Comment on above: Performed By: #### L 500.4050, L100.0100, L501.2300, L501.5200 ####[facility] [address] [place], [address] Neutrophils/100 WBC (Bld) 78.0 % High 47-70 [facility] Comment on above: Performed By: #### L 500.4050, L100.0100, L501.2300, L501.5200 ####[facility] [address] [place], [address] Nucleated RBC (Bld) [#/Vol] 0 10*3/uL Normal 0-5 [facility] Comment on above: Performed By: #### L 500.4050, L100.0100, L501.2300, L501.5200 ####[facility] [address] [place], [address] Platelet mean volume (Bld) [Entitic vol] 10.2 fL Normal 6.2-12.0 [facility] Comment on above: Performed By: #### L 500.4050, L100.0100, L501.2300, L501.5200 ####[facility] [address] [place], [address] Platelets (Bld) [#/Vol] 244 10*3/uL Normal 150-450 [facility] Comment on above: Performed By: #### L 500.4050, L100.0100, L501.2300, L501.5200 ####[facility] [address] [place], [address] RBC (Bld) [#/Vol] 4.69 10*6/uL Normal 4.2-5.[address] [facility] Comment on above: Performed By: #### L 500.4050, L100.0100, L501.2300, L501.5200 ####[facility] [address] [place], [address] RDW SD 42.7 fl Normal 35.1-43.9 [facility] Comment on above: Performed By: #### L 500.4050, L100.0100, L501.2300, L501.5200 ####[facility] [address] [place], [address] WBC (Bld) [#/Vol] 13.0 10*3/uL High 4.4-11.[address] [facility] Comment on above: Performed By: #### L 500.4050, L100.0100, L501.2300, L501.5200 ####[facility] [address] [place], [address] Comprehensive Metabolic Prof [facility] 07-18-2024 Albumin [Mass/Vol] 2.8 g/dL Low 3.2-5.0 [facility] Comment on above: Performed By: #### L 500.4050, L100.0100, L501.2300, L501.5200 ####[facility] [address] [place], [address] Albumin/Globulin [Mass ratio] 0.8 {ratio} Low 0.9-2.4 [facility] Comment on above: Performed By: #### L 500.4050, L100.0100, L501.2300, L501.5200 ####[facility] [address] [place], [address] ALK P 102 U/L Normal 45-117 [facility] Comment on above: Performed By: #### L 500.4050, L100.0100, L501.2300, L501.5200 ####[facility] [address] [place], [address] ALT [Catalytic activity/Vol] 17 U/L Normal 13-56 [facility] Comment on above: Performed By: #### L 500.4050, L100.0100, L501.2300, L501.5200 ####[facility] [address] [place], [address] AST [Catalytic activity/Vol] 17 U/L Normal 15-37 [facility] Comment on above: Performed By: #### L 500.4050, L100.0100, L501.2300, L501.5200 ####[facility] [address] [place], [address] Bilirubin [Mass/Vol] 0.80 mg/dL Normal 0.20-1.00 [facility] Comment on above: Result Comment: For patients on eltrombopag therapy, use of Dimension Kake TBIL is not recommended. Performed By: #### L 500.4050, L100.0100, L501.2300, L501.5200 ####[facility] [address] [place], [address] BUN/CRE 24.3 RATIO High 10-20 [facility] Comment on above: Performed By: #### L 500.4050, L100.0100, L501.2300, L501.5200 ####[facility] [address] [place], [address] CA,Total 10.0 mg/dL Normal 8.5-10.1 [facility] Comment on above: Performed By: #### L 500.4050, L100.0100, L501.2300, L501.5200 ####[facility] [address] [place], [address] Chloride [Moles/Vol] 106 mmol/L Normal 98-107 [facility] Comment on above: Performed By: #### L 500.4050, L100.0100, L501.2300, L501.5200 ####[facility] [address] [place], [address] CO2 [Moles/Vol] 28.0 mmol/L Normal 21.0-32.0 [facility] Comment on above: Performed By: #### L 500.4050, L100.0100, L501.2300, L501.5200 ####[facility] [address] [place], [address] Creatinine [Mass/Vol] 0.82 mg/dL Normal 0.55-1.02 [facility] Comment on above: Result Comment: The validity of the calculated GFR GFRAA in patients over70 years has not been determined. Clinical correlation isessential. Performed By: #### L 500.4050, L100.0100, L501.2300, L501.5200 ####[facility] [address] [place], [address] ECRCL 48.41 ml/min Normal [facility] Comment on above: Performed By: #### L 500.4050, L100.0100, L501.2300, L501.5200 ####[facility] [address] [place], [address] EST GFR - AA 85 mL/min Normal >60 [facility] Comment on above: Result Comment: Afri can Thai GFR Calc Performed By: #### L 500.4050, L100.0100, L501.2300, L501.5200 ####[facility] [address] [place], [address] GAP 5 Normal 5-15 [facility] Comment on above: Performed By: #### L 500.4050, L100.0100, L501.2300, L501.5200 ####[facility] [address] [place], [address] GFR/1.73 sq M.predicted among non-blacks MDRD (S/P/Bld) [Vol rate/Area] 71 mL/min/{1.73_m2} Normal >60 [facility] Comment on above: Result Comment: Non- GFR Calc Performed By: #### L 500.4050, L100.0100, L501.2300, L501.5200 ####[facility] [address] [place], [address] Globulin (S) [Mass/Vol] 3.3 g/dL Normal 2.2-4.2 [facility] Comment on above: Performed By: #### L 500.4050, L100.0100, L501.2300, L501.5200 ####[facility] [address] [place], [address] Glucose [Mass/Vol] 109 mg/dL High 74-106 [facility] Comment on above: Result Comment: Fast ing Glucose result from 100 to 125 mg/dLsuggests IMPAIRED HOMEOSTASIS per A.D.A. criteria. Performed By: #### L 500.4050, L100.0100, L501.2300, L501.5200 ####[facility] [address] [place], [address] Potassium [Moles/Vol] 3.4 mmol/L Low 3.5-5.1 [facility] Comment on above: Performed By: #### L 500.4050, L100.0100, L501.2300, L501.5200 ####[facility] [address] [place], [address] Sodium [Moles/Vol] 139 mmol/L Normal 136-145 [facility] Comment on above: Performed By: #### L 500.4050, L100.0100, L501.2300, L501.5200 ####[facility] [address] [place], [address] T PROT 6.1 g/dL Low 6.4-8.2 [facility] Comment on above: Performed By: #### L 500.4050, L100.0100, L501.2300, L501.5200 ####[facility] [address] [place], [address] Urea nitrogen [Mass/Vol] 20 mg/dL High 7-18 [facility] Comment on above: Performed By: #### L 500.4050, L100.0100, L501.2300, L501.5200 ####[facility] [address] [place], [address] HIP, UNI W/ Pelvis 2-3 Views on 07-18-2024 HIP, UNI W/ Pelvis 2-3 Views Normal [facility] Magnesiumon 07-18-2024 Magnesium [Mass/Vol] 2.1 mg/dL Normal 1.6-2.6 [facility] Comment on above: Performed By: #### L 500.4050, L100.0100, L501.2300, L501.5200 ####[facility] [address] [place], [address] Phosphoruson 07-18-2024 Phosphate [Mass/Vol] 3.1 mg/dL Normal 2.5-4.9 [facility] Comment on above: Performed By: #### L 500.4050, L100.0100, L501.2300, L501.5200 ####[facility] [address] [place], [address] Arterial patency Wrist arter y --pre arterial punctureOrdered By: Niall So on 07-17-2024 Assessment of wrist artery patency prior to arterial puncture Positive [facility] Base excess Calc (BldV) [Mol es/Vol]Ordered By: Niall So on 07-17-2024 Blood base excess determination 1 mmol/L -2-2 [facility] Basic Metabolic Profile (BMP )on 07-17-2024 BUN/CRE 13.5 RATIO Normal 10-20 [facility] Comment on above: Performed By: #### L 500.2500, L100.0100 ####[facility] [address] [place], [address] CA,Total 10.7 mg/dL High 8.5-10.1 [facility] Comment on above: Performed By: #### L 500.2500, L100.0100 ####[facility] [address] [place], [address] Chloride [Moles/Vol] 104 mmol/L Normal 98-107 [facility] Comment on above: Performed By: #### L 500.2500, L100.0100 ####[facility] [address] [place], [address] CO2 [Moles/Vol] 29.0 mmol/L Normal 21.0-32.0 [facility] Comment on above: Performed By: #### L 500.2500, L100.0100 ####[facility] [address] [place], [address] Creatinine [Mass/Vol] 1.26 mg/dL High 0.55-1.02 [facility] Comment on above: Result Comment: The validity of the calculated GFR GFRAA in patients over70 years has not been determined. Clinical correlation isessential. Performed By: #### L 500.2500, L100.0100 ####[facility] [address] [place], [address] ECRCL 29.68 ml/min Normal [facility] Comment on above: Performed By: #### L 500.2500, L100.0100 ####[facility] [address] [place], [address] EST GFR - AA 52 mL/min Low >60 [facility] Comment on above: Result Comment: Afri can Thai GFR Calc Performed By: #### L 500.2500, L100.0100 ####[facility] [address] [place], [address] GAP 8 Normal 5-15 [facility] Comment on above: Performed By: #### L 500.2500, L100.0100 ####[facility] [address] [place], [address] GFR/1.73 sq M.predicted among non-blacks MDRD (S/P/Bld) [Vol rate/Area] 43 mL/min/{1.73_m2} Low >60 [facility] Comment on above: Result Comment: Non- GFR Calc Performed By: #### L 500.2500, L100.0100 ####[facility] [address] [place], [address] Glucose [Mass/Vol] 121 mg/dL High 74-106 [facility] Comment on above: Result Comment: Fast ing Glucose result from 100 to 125 mg/dLsuggests IMPAIRED HOMEOSTASIS per A.D.A. criteria. Performed By: #### L 500.2500, L100.0100 ####[facility] [address] [place], [address] Potassium [Moles/Vol] 3.5 mmol/L Normal 3.5-5.1 [facility] Comment on above: Performed By: #### L 500.2500, L100.0100 ####[facility] [address] [place], [address] Sodium [Moles/Vol] 141 mmol/L Normal 136-145 [facility] Comment on above: Performed By: #### L 500.2500, L100.0100 ####[facility] [address] [place], [address] Urea nitrogen [Mass/Vol] 17 mg/dL Normal 7-18 [facility] Comment on above: Performed By: #### L 500.2500, L100.0100 ####[facility] [address] [place], [address] Blood Gases by CPSon 12-26-2 024 ENRICO TEST Positive Normal [facility] Comment on above: Performed By: #### L 9000.0800 ####[facility] [address] [place], [address] Base excess Calc (Bld) [Moles/Vol] 1 mmol/L Normal -2 to +2 [facility] Comment on above: Performed By: #### L 9000.0800 ####[facility] [address] [place], [address] Blood Gas Type ART Normal [facility] Comment on above: Performed By: #### L 9000.0800 ####[facility] [address] [place], [address] CO2 [Moles/Vol] 26 mmol/L Normal [facility] Comment on above: Performed By: #### L 9000.0800 ####[facility] [address] [place], [address] FI02 2.0 Normal [facility] Comment on above: Performed By: #### L 9000.0800 ####[facility] [address] [place], [address] HCO3 (Bld) [Moles/Vol] 24.9 mmol/L Normal 22-[address] [facility] Comment on above: Performed By: #### L 9000.0800 ####[facility] [address] [place], [address] Mode Not entered Normal [facility] Comment on above: Performed By: #### L 9000.0800 ####[facility] [address] [place], [address] O2 Delivery Dev Cannula Normal [facility] Comment on above: Performed By: #### L 9000.0800 ####[facility] [address] [place], [address] pCO2 38.1 mmHg Normal 35-45 [facility] Comment on above: Performed By: #### L 9000.0800 ####[facility] [address] [place], [address] pH (Bld) 7.42 [pH] Normal 7.35-7.45 [facility] Comment on above: Performed By: #### L 9000.0800 ####[facility] [address] [place], [address] PO2 131 mmHG High 75-100 [facility] Comment on above: Performed By: #### L 9000.0800 ####[facility] [address] [place], [address] SITE L Radial Normal [facility] Comment on above: Performed By: #### L 9000.0800 ####[facility] [address] [place], [address] SO2 99 Normal 95-99 [facility] Comment on above: Performed By: #### L 9000.0800 ####[facility] [address] [place], [address] Blood bicarbonate measuremen tOrdered By: Niall So on 07-17-2024 Blood bicarbonate measurement 24.9 mmol/L [facility] CBC W/Diff, Automatedon 12-2 Absolute Lymph 1.39 X10 3/uL Normal 0.83-4.51 [facility] Comment on above: Performed By: #### L 500.2500, L100.0100 ####[facility] [address] [place], [address] Absolute Neut 10.5 X10 3/uL High 2.0-7.7 [facility] Comment on above: Performed By: #### L 500.2500, L100.0100 ####[facility] [address] [place], [address] Basophils/100 WBC (Bld) 0.6 % Normal 0-[address] [facility] Comment on above: Performed By: #### L 500.2500, L100.0100 ####[facility] [address] [place], [address] Eosinophils/100 WBC (Bld) 2.1 % Normal 0-5 [facility] Comment on above: Performed By: #### L 500.2500, L100.0100 ####[facility] [address] [place], [address] Erythrocyte distribution width (RBC) [Ratio] 13.2 % Normal 11.6-14.6 [facility] Comment on above: Performed By: #### L 500.2500, L100.0100 ####[facility] [address] [place], [address] Hematocrit (Bld) [Volume fraction] 47.7 % High 37-47 [facility] Comment on above: Performed By: #### L 500.2500, L100.0100 ####[facility] [address] [place], [address] Hemoglobin (Bld) [Mass/Vol] 15.1 g/dL High 12.0-15.0 [facility] Comment on above: Performed By: #### L 500.2500, L100.0100 ####[facility] [address] [place], [address] IG% 0.500 Normal 0.0-0.9 [facility] Comment on above: Result Comment: IG% - Immature Granulocytes (promyelocytes, myelocytes andmetamyelocytes) > 1% indicates that a LEFT SHIFT is Present. Performed By: #### L 500.2500, L100.0100 ####[facility] [address] [place], [address] Lymphocytes/100 WBC (Bld) 10.4 % Low 19-41 [facility] Comment on above: Performed By: #### L 500.2500, L100.0100 ####[facility] [address] [place], [address] MCH (RBC) [Entitic mass] 28.3 pg Normal 27.0-32.0 [facility] Comment on above: Performed By: #### L 500.2500, L100.0100 ####[facility] [address] [place], [address] MCHC (RBC) [Mass/Vol] 31.7 g/dL Low 32-36 [facility] Comment on above: Performed By: #### L 500.2500, L100.0100 ####[facility] [address] [place], [address] MCV (RBC) [Entitic vol] 89.5 fL Normal 81-99 [facility] Comment on above: Performed By: #### L 500.2500, L100.0100 ####[facility] [address] [place], [address] Monocytes/100 WBC (Bld) 7.6 % Normal 0-10 [facility] Comment on above: Performed By: #### L 500.2500, L100.0100 ####[facility] [address] [place], [address] Neutrophils/100 WBC (Bld) 78.8 % High 47-70 [facility] Comment on above: Performed By: #### L 500.2500, L100.0100 ####[facility] [address] [place], [address] Nucleated RBC (Bld) [#/Vol] 0 10*3/uL Normal 0-5 [facility] Comment on above: Performed By: #### L 500.2500, L100.0100 ####[facility] [address] [place], [address] Platelet mean volume (Bld) [Entitic vol] 10.8 fL Normal 6.2-12.0 [facility] Comment on above: Performed By: #### L 500.2500, L100.0100 ####[facility] [address] [place], [address] Platelets (Bld) [#/Vol] 307 10*3/uL Normal 150-450 [facility] Comment on above: Performed By: #### L 500.2500, L100.0100 ####[facility] [address] [place], [address] RBC (Bld) [#/Vol] 5.33 10*6/uL Normal 4.2-5.[address] [facility] Comment on above: Performed By: #### L 500.2500, L100.0100 ####[facility] [address] [place], [address] RDW SD 43.3 fl Normal 35.1-43.9 [facility] Comment on above: Performed By: #### L 500.2500, L100.0100 ####[facility] [address] [place], [address] WBC (Bld) [#/Vol] 13.4 10*3/uL High 4.4-11.[address] [facility] Comment on above: Performed By: #### L 500.2500, L100.0100 ####[facility] [address] [place], [address] Chest PA and Lateralon 07-17 Chest PA and Lateral Normal [facility] Determination of fraction of inspired oxygenOrdered By: Niall So on 07-17-2024 Determination of fraction of inspired oxygen 2.0 [facility] Echo Complete W/ Contraston 07-17-2024 Echo Complete W/ Contrast Normal [facility] Emergency Department Summary on 07-17-2024 Emergency Department Summary Normal [facility] H AND P Exam - Hospitaliston 07-17-2024 H&P Exam - Hospitalist Normal [facility] Influenza virus A and B and SARS-CoV-2 (COVID-19) and Respiratory syncytial virus RNAOrdered By: Apple Lee on 07-17-2024 Influenza virus A and B and SARS-CoV-2 (COVID-19) and Respiratory syncytial virus RNA Influenzae A Abnormal [facility] M100.678on 07-17-2024 M100.678 Normal [facility] Comment on above: Performed By: #### M 100.678 ####[facility] [address] [place], [address] No Panel InformationOrdered By: Niall So on 07-17-2024 ART [facility] L Radial [facility] Not entered [facility] Cannula [facility] Oxygen saturation measuremen tOrdered By: Niall So on 07-17-2024 Oxygen saturation measurement 99 % 95-99 [facility] Partial pressure of carbon d ioxide measurementOrdered By: Niall So on 07-17-2024 Partial pressure of carbon dioxide measurement 38.1 mmHg 35-45 [facility] Partial pressure of oxygen m easurementOrdered By: Niall So on 07-17-2024 Partial pressure of oxygen measurement 131 mmHG High 75-100 [facility] TSH QnOrdered By: Niall naylor on 07-17-2024 Serum or plasma thyroid stimulating hormone (TSH) measurement (units/volume) 2.040 uIU/mL 0.358-3.740 [facility] Thyroid Stim Hormone (TSH)on 07-17-2024 TSH 2.040 uIU/mL Normal 0.358-3.740 [facility] Comment on above: Performed By: #### L 501.9520 ####[facility] [address] [place], [address] Total carbon dioxide measure mentOrdered By: Niall So on 07-17-2024 Total carbon dioxide measurement 26 mmol/L [facility] pH (Unsp spec)Ordered By: Bob So on 07-17-2024 Measurement, pH 7.42 7.35-7.45 [facility] .Auto Diffon 05-08-2024 Basophil, Absolute 0.1 10 3/mcL Normal 0.0-0.[address] [facility] Comment on above: Performed By: #### G FR, CBC, ANEU, ADIFF, BMP #### [address] [address] Basophils/100 WBC (Bld) 0.9 % Normal 0.0-2.5 [facility] Comment on above: Performed By: #### G FR, CBC, ANEU, ADIFF, BMP #### [address] [address] Eosinophil, Absolute 0.3 10 3/mcL Normal 0.0-0.7 [facility] Comment on above: Performed By: #### G FR, CBC, ANEU, ADIFF, BMP #### [address] [address] Eosinophils/100 WBC (Bld) 3.5 % Normal 0.0-6.0 [facility] Comment on above: Performed By: #### G FR, CBC, ANEU, ADIFF, BMP #### [address] [address] Lymphocyte, Absolute 1.3 10 3/mcL Normal 0.9-4.3 [facility] Comment on above: Performed By: #### G FR, CBC, ANEU, ADIFF, BMP #### [address] [address] Lymphocytes/100 WBC (Bld) 16.8 % Low 20.0-40.0 [facility] Comment on above: Performed By: #### G FR, CBC, ANEU, ADIFF, BMP #### [address] [address] Monocyte, Absolute 0.7 10 3/mcL Normal 0.1-1.[address] [facility] Comment on above: Performed By: #### G FR, CBC, ANEU, ADIFF, BMP #### [address] [address] Monocytes/100 WBC (Bld) 9.4 % Normal 2.0-13.0 [facility] Comment on above: Performed By: #### G FR, CBC, ANEU, ADIFF, BMP #### [address] [address] Neutrophils/100 WBC (Bld) 69.4 % Normal 50.0-75.0 [facility] Comment on above: Performed By: #### G FR, CBC, ANEU, ADIFF, BMP #### [address] [address] .GFRon 05-08-2024 GFR >60 [facility] Comment on above: Result Comment: [...] G FR, CBC, ANEU, ADIFF, BMP #### [address] [address] GFR Non- >60 [facility] Comment on above: Result Comment: [...] G FR, CBC, ANEU, ADIFF, BMP #### [address] [address] .NEUABSon 05-08-2024 Neutrophil, Absolute 5.3 10 3/mcL Normal 2.3-8.1 [facility] Comment on above: Performed By: #### G FR, CBC, ANEU, ADIFF, BMP #### [address] 05-08-2024 BUN/Creatinine Ratio 25.4 ratio High 10.0-22.[address] [facility] Comment on above: Performed By: #### G FR, CBC, ANEU, ADIFF, BMP #### [place] [address] Calcium [Mass/Vol] 9.7 mg/dL Normal 8.7-10.4 [facility] Comment on above: Performed By: #### G FR, CBC, ANEU, ADIFF, BMP #### [place] [address] Chloride [Moles/Vol] 110 mmol/L Normal 98-[address] [facility] Comment on above: Performed By: #### G FR, CBC, ANEU, ADIFF, BMP #### [place] [address] CO2 [Moles/Vol] 29 mmol/L Normal 22-32 [facility] Comment on above: Performed By: #### G FR, CBC, ANEU, ADIFF, BMP #### [place] [address] Creatinine [Mass/Vol] 0.71 mg/dL Normal 0.50-1.20 [facility] Comment on above: Result Comment: Test ing performed on TranSiC analyzer using enzymatic creatinine methodology. Performed By: #### G FR, CBC, ANEU, ADIFF, BMP #### [place] [address] Electrolyte Balance 5.0 mEq/L Normal 4.0-15.0 [facility] Comment on above: Performed By: #### G FR, CBC, ANEU, ADIFF, BMP #### [place] [address] Glucose [Mass/Vol] 106 mg/dL Normal 82-115 [facility] Comment on above: Performed By: #### G FR, CBC, ANEU, ADIFF, BMP #### [place] [id number] Potassium [Moles/Vol] 3.6 mmol/L Normal 3.5-5.0 [facility] Comment on above: Performed By: #### G FR, CBC, ANEU, ADIFF, BMP #### [place] [id number] Sodium [Moles/Vol] 144 mmol/L Normal 136-145 [facility] Comment on above: Performed By: #### G FR, CBC, ANEU, ADIFF, BMP #### [place] [address] Urea nitrogen [Mass/Vol] 18.0 mg/dL Normal 8.0-22.0 [facility] Comment on above: Performed By: #### G FR, CBC, ANEU, ADIFF, BMP #### [address] [address] [facility] 05-08-2024 Erythrocyte distribution width (RBC) [Ratio] 13.5 % Normal 11.5-15.5 [facility] Comment on above: Performed By: #### G FR, CBC, ANEU, ADIFF, BMP #### [place] [id number] Hematocrit (Bld) [Volume fraction] 40.9 % Normal 34.0-46.0 [facility] Comment on above: Performed By: #### G FR, CBC, ANEU, ADIFF, BMP #### [place] [id number] Hgb 13.7 G/dL Normal 12.0-16.0 [facility] Comment on above: Performed By: #### G FR, CBC, ANEU, ADIFF, BMP #### [address] [address] MCH (RBC) [Entitic mass] 29.0 pg Normal 27.0-33.0 [facility] Comment on above: Performed By: #### G FR, CBC, ANEU, ADIFF, BMP #### [place] [address] MCHC 33.5 G/dL Normal 32.0-36.0 [facility] Comment on above: Performed By: #### G FR, CBC, ANEU, ADIFF, BMP #### [place] [address] MCV (RBC) [Entitic vol] 86.6 fL Normal 80.0-99.0 [facility] Comment on above: Performed By: #### G FR, CBC, ANEU, ADIFF, BMP #### [place] [address] Platelet 198 10 3/mcL Normal 150-450 [facility] Comment on above: Performed By: #### G FR, CBC, ANEU, ADIFF, BMP #### [place] [address] Platelet mean volume (Bld) [Entitic vol] 8.1 fL Normal 6.6-10.5 [facility] Comment on above: Performed By: #### G FR, CBC, ANEU, ADIFF, BMP #### [place] [address] RBC 4.73 10 6/mcL Normal 4.10-5.30 [facility] Comment on above: Performed By: #### G FR, CBC, ANEU, ADIFF, BMP #### [place] [address] WBC 7.6 10 3/mcL Normal 4.5-10.8 [facility] Comment on above: Performed By: #### G FR, CBC, ANEU, ADIFF, BMP #### [place] [address] LABORATORYOrdered By: SYSTEM SYSTEM on 05-08-2024 Basophils [...] above: Interpretive Data: T esting performed on TranSiC analyzer using enzymatic creatinine methodology. Electrolyte Balance [...] (S/P/Bld) [Vol rate/Area] ml/min/1.73sqm Invalid Interpretation Code [employer] S Comment on above: Interpretive Data: [...] (S/P/Bld) [Vol rate/Area] ml/min/1.73sqm Invalid Interpretation Code [employer] Chemistry S Comment on above: Interpretive Data: [...] CK [Catalytic activity/Vol] 23 U/L Normal 7-185 [facility] Comment on above: Order Comment: add o n lab Performed By: #### C K ####[place] [address] LABORATORYOrdered By: SYSTEM SYSTEM on 05-07-2024 CK [...] SS UAon 05-07-2024 Color (U) Yellow Normal [facility] Comment on above: Performed By: #### U A #### [place] [address] Glucose (U) [Mass/Vol] Negative Normal Negative [facility] Comment on above: Performed By: #### U A #### [place] [address] Ketones Ql (U) Negative Normal Neg-Trace [facility] Comment on above: Performed By: #### U A #### [place] [address] UA Appear Clear Normal Clear [facility] Comment on above: Performed By: #### U A #### [place] [address] UA Blood Negative Normal Neg-Trace [facility] Comment on above: Performed By: #### U A #### [place] [address] UA Leuk Est Trace Normal Negative [facility] Comment on above: Performed By: #### U A #### [place] [address] UA Nitrite Negative Normal Negative [facility] Comment on above: Performed By: #### U A #### [place] [address] UA pH 6.5 Normal 5.0 - 8.0 [facility] Comment on above: Performed By: #### U A #### [place] [address] UA Protein Negative Normal Negative [facility] Comment on above: Performed By: #### U A #### [place] [address] UA Spec Grav 1.010 Normal 1.006-1.029 [facility] Comment on above: Performed By: #### U A #### [address] [address] UA Specimen Type Clean Catch Normal [facility] Comment on above: Performed By: #### U A #### [address] [address] UA Urobilinogen 0.2 E.U./dL Normal 0.2-1.0 [facility] Comment on above: Performed By: #### U A #### [place] [address] Urobilinogen (U) [Mass/Vol] Negative Normal Neg-Trace [facility] Comment on above: Performed By: #### U A #### [address] [address] .Auto Diffon 05-06-2024 Basophil, Absolute 0.1 10 3/mcL Normal 0.0-0.[address] [facility] Comment on above: Performed By: #### M DW, MG, TROPHS, ANEU, GFR, CBC, ADIFF, CMP ####[place] [id number] Basophils/100 WBC (Bld) 0.9 % Normal 0.0-2.5 [facility] Comment on above: Performed By: #### M DW, MG, TROPHS, ANEU, GFR, CBC, ADIFF, CMP ####[address] [address] Eosinophil, Absolute 0.2 10 3/mcL Normal 0.0-0.7 [facility] Comment on above: Performed By: #### M DW, MG, TROPHS, ANEU, GFR, CBC, ADIFF, CMP ####[address] [address] Eosinophils/100 WBC (Bld) 1.2 % Normal 0.0-6.0 [facility] Comment on above: Performed By: #### M DW, MG, TROPHS, ANEU, GFR, CBC, ADIFF, CMP ####[address] [address] Lymphocyte, Absolute 2.1 10 3/mcL Normal 0.9-4.3 [facility] Comment on above: Performed By: #### M DW, MG, TROPHS, ANEU, GFR, CBC, ADIFF, CMP ####[address] [address] Lymphocytes/100 WBC (Bld) 15.1 % Low 20.0-40.0 [facility] Comment on above: Performed By: #### M DW, MG, TROPHS, ANEU, GFR, CBC, ADIFF, CMP ####[address] [address] Monocyte, Absolute 1.2 10 3/mcL Normal 0.1-1.[address] [facility] Comment on above: Performed By: #### M DW, MG, TROPHS, ANEU, GFR, CBC, ADIFF, CMP ####[address] [address] Monocytes/100 WBC (Bld) 8.5 % Normal 2.0-13.0 [facility] Comment on above: Performed By: #### M DW, MG, TROPHS, ANEU, GFR, CBC, ADIFF, CMP ####[address] [address] Neutrophils/100 WBC (Bld) 74.3 % Normal 50.0-75.0 [facility] Comment on above: Performed By: #### M DW, MG, TROPHS, ANEU, GFR, CBC, ADIFF, CMP ####[address] [address] .GFRon 05-06-2024 GFR >[address] [facility] Comment on above: Result Comment: [...] MG, TROPHS, ANEU, GFR, CBC, ADIFF, CMP ####[place] [address] GFR Non- >[address] [facility] Comment on above: Result Comment: [...] MG, TROPHS, ANEU, GFR, CBC, ADIFF, CMP ####[place] [address] .MDWon 05-06-2024 Monocyte Distribution Width 17.36 Normal 0.00-20.00 [facility] Comment on above: Result Comment: For ED adult patients suspected of sepsis, MDW<=20.0 does not rule out sepsis or risk of sepsis Performed By: #### M DW, MG, TROPHS, ANEU, GFR, CBC, ADIFF, CMP ####[place] [address] .NEUABSon 05-06-2024 Neutrophil, Absolute 10.2 10 3/mcL High 2.3-8.1 [facility] Comment on above: Performed By: #### M DW, MG, TROPHS, ANEU, GFR, CBC, ADIFF, CMP ####[place] [address] CBCon 05-06-2024 Erythrocyte distribution width (RBC) [Ratio] 13.5 % Normal 11.5-15.5 [facility] Comment on above: Performed By: #### M DW, MG, TROPHS, ANEU, GFR, CBC, ADIFF, CMP #### [place] [address] Hematocrit (Bld) [Volume fraction] 50.2 % High 34.0-46.0 [facility] Comment on above: Performed By: #### M DW, MG, TROPHS, ANEU, GFR, CBC, ADIFF, CMP #### [place] [address] Hgb 16.6 G/dL High 12.0-16.0 [facility] Comment on above: Performed By: #### M DW, MG, TROPHS, ANEU, GFR, CBC, ADIFF, CMP #### [place] [address] MCH (RBC) [Entitic mass] 28.1 pg Normal 27.0-33.0 [facility] Comment on above: Performed By: #### M DW, MG, TROPHS, ANEU, GFR, CBC, ADIFF, CMP #### [place] [address] MCHC 33.1 G/dL Normal 32.0-36.0 [facility] Comment on above: Performed By: #### M DW, MG, TROPHS, ANEU, GFR, CBC, ADIFF, CMP #### [place] [id number] MCV (RBC) [Entitic vol] 85.0 fL Normal 80.0-99.0 [facility] Comment on above: Performed By: #### M DW, MG, TROPHS, ANEU, GFR, CBC, ADIFF, CMP #### [place] [address] Platelet 282 10 3/mcL Normal 150-450 [facility] Comment on above: Performed By: #### M DW, MG, TROPHS, ANEU, GFR, CBC, ADIFF, CMP #### [place] [address] Platelet mean volume (Bld) [Entitic vol] 8.1 fL Normal 6.6-10.5 [facility] Comment on above: Performed By: #### M DW, MG, TROPHS, ANEU, GFR, CBC, ADIFF, CMP #### [place] [address] RBC 5.90 10 6/mcL High 4.10-5.30 [facility] Comment on above: Performed By: #### M DW, MG, TROPHS, ANEU, GFR, CBC, ADIFF, CMP #### [place] [address] WBC 13.7 10 3/mcL High 4.5-10.8 [facility] Comment on above: Performed By: #### M DW, MG, TROPHS, ANEU, GFR, CBC, ADIFF, CMP #### [place] [address] CMPon 05-06-2024 Albumin Level 4.0 G/dL Normal 3.2-4.8 [facility] Comment on above: Performed By: #### M DW, MG, TROPHS, ANEU, GFR, CBC, ADIFF, CMP ####[place] [address] Albumin/Globulin [Mass ratio] 1.2 {ratio} Normal 0.9-1.6 [facility] Comment on above: Performed By: #### M DW, MG, TROPHS, ANEU, GFR, CBC, ADIFF, CMP ####[place] [address] ALP [Catalytic activity/Vol] 137 U/L High 38-126 [facility] Comment on above: Performed By: #### M DW, MG, TROPHS, ANEU, GFR, CBC, ADIFF, CMP ####[place] [address] ALT [Catalytic activity/Vol] 9 U/L Low 10-49 [facility] Comment on above: Performed By: #### M DW, MG, TROPHS, ANEU, GFR, CBC, ADIFF, CMP ####[place] [address] AST [Catalytic activity/Vol] 21 U/L Normal 8-34 [facility] Comment on above: Performed By: #### M DW, MG, TROPHS, ANEU, GFR, CBC, ADIFF, CMP ####[place] [address] Bili Total 0.60 mg/dL Normal 0.20-1.20 [facility] Comment on above: Result Comment: Use of this assay is not recommended for patients undergoing treatment with eltrombopag due to the potential for falsely elevated results. Performed By: #### M DW, MG, TROPHS, ANEU, GFR, CBC, ADIFF, CMP ####[place] [address] BUN/Creatinine Ratio 16.9 ratio Normal 10.0-22.[address] [facility] Comment on above: Performed By: #### M DW, MG, TROPHS, ANEU, GFR, CBC, ADIFF, CMP ####[place] [address] Calcium [Mass/Vol] 11.4 mg/dL High 8.7-10.4 [facility] Comment on above: Performed By: #### M DW, MG, TROPHS, ANEU, GFR, CBC, ADIFF, CMP ####[place] [place] [address] Chloride [Moles/Vol] 101 mmol/L Normal 98-[address] [facility] Comment on above: Performed By: #### M DW, MG, TROPHS, ANEU, GFR, CBC, ADIFF, CMP ####[address] [address] CO2 [Moles/Vol] 28 mmol/L Normal 22-32 [facility] Comment on above: Performed By: #### M DW, MG, TROPHS, ANEU, GFR, CBC, ADIFF, CMP ####[place] [id number] Creatinine [Mass/Vol] 0.83 mg/dL Normal 0.50-1.20 [facility] Comment on above: Result Comment: Test ing performed on TranSiC analyzer using enzymatic creatinine methodology. Performed By: #### M DW, MG, TROPHS, ANEU, GFR, CBC, ADIFF, CMP ####[address] [address] Electrolyte Balance 8.0 mEq/L Normal 4.0-15.0 [facility] Comment on above: Performed By: #### M DW, MG, TROPHS, ANEU, GFR, CBC, ADIFF, CMP ####[address] [address] Globulin 3.2 G/dL Normal 1.5-3.8 [facility] Comment on above: Performed By: #### M DW, MG, TROPHS, ANEU, GFR, CBC, ADIFF, CMP ####[place] [id number] Glucose [Mass/Vol] 105 mg/dL Normal 82-115 [facility] Comment on above: Performed By: #### M DW, MG, TROPHS, ANEU, GFR, CBC, ADIFF, CMP ####[place] [address] Potassium [Moles/Vol] 3.8 mmol/L Normal 3.5-5.0 [facility] Comment on above: Result Comment: Spec imen slightly hemolyzed. Performed By: #### M DW, MG, TROPHS, ANEU, GFR, CBC, ADIFF, CMP ####[place] [address] Sodium [Moles/Vol] 137 mmol/L Normal 136-145 [facility] Comment on above: Performed By: #### M DW, MG, TROPHS, ANEU, GFR, CBC, ADIFF, CMP ####[place] [address] Total Protein 7.2 G/dL Normal 5.7-8.2 [facility] Comment on above: Result Comment: No te - New Reference Range in effect 20 Performed By: #### M DW, MG, TROPHS, ANEU, GFR, CBC, ADIFF, CMP ####[place] [address] Urea nitrogen [Mass/Vol] 14.0 mg/dL Normal 8.0-22.0 [facility] Comment on above: Performed By: #### M DW, MG, TROPHS, ANEU, GFR, CBC, ADIFF, CMP ####[facility] [place], [place] [address] CT HEAD OR BRAIN W/O CONTRAS Ton 05-06-2024 CT HEAD OR BRAIN W/O CONTRAST ORIGINAL EXAMINATION: CT OF THE HEAD WITHOUT VFMCMPWQ09/15/2024 8:[address] HEAD/BRAIN WITHOUT CONTRAST EXAM [...] 9:05:39 PM Ordering Provider: DAI SILVERMAN Normal [facility] CVFLURVon 05-06-2024 FLU A PCR Negative Normal Negative [facility] Comment on above: Result [place]: [place] [id number] Performed By: #### C VFLURV #### [place] [address] FLU B PCR Negative Normal Negative [facility] Comment on above: Result Comment: [place] [id number] Performed By: #### C VFLURV #### [facility] [address] [place] [address] RSV PCR Negative Normal Negative [facility] Comment on above: Result Comment: [place] [id number] Performed By: #### C VFLURV #### [place] [address] SARS-CoV-2 (COVID-19) RNA VINCE+probe Ql (Unsp spec) Negative Normal Negative [facility] Comment on above: Result Comment: [place] [id number] This test has been authorized by FDA [...] results. Performed By: #### C VFLURV #### [place] [address] LABORATORYOrdered By: Miley Islas on 05-06-2024 FLUAV RNA VINCE+probe Ql (Resp) Negative 10 (05/06/24 9:16 PM) Normal Negative [facility] Auto Viro/Sero SS Comment on above: [place]: [place] [id number] FLUBV RNA VINCE+probe Ql (Resp) Negative 11 (05/06/24 9:16 PM) Normal Negative [facility] Auto Viro/Sero SS Comment on above: Result Comment: [place] [id number] RSV PCR Negative 12 (05/06/24 9:16 PM) Normal Negative [facility] Auto Viro/Sero SS Comment on above: Result Comment: [place] [id number] SARS-CoV-2 (COVID-19) RNA VINCE+probe Ql (Resp) Negative 8, 9 (05/06/24 9:16 PM) Normal Negative [facility] Auto Viro/Sero SS Comment on above: Result Comment: [place] s [id number] Interpretive Data: T his test has been [...] above: Interpretive Data: T esting performed on TranSiC analyzer using enzymatic creatinine methodology. Electrolyte Balance [...] ng/L Male: 0-54 ng/L Testing performed on [employer] analyzer using direct chemiluminescent technology. Urea nitrogen [...] 05-06-2024 U Creatinine 19.9 mg/dL Low 28.0-117.0 [facility] Comment on above: Performed By: #### M ALBR ####[place] [address] [place], [place] [address] U Microalb 466 mcg/dL Normal [facility] Comment on above: Performed By: #### M ALBR ####[facility] [place], [place] [address] U Ratio Alb/Cre 23 mcg/mg Normal 0-30 [facility] Comment on above: Performed By: #### M ALBR ####[place] [address] [place], [place] [address] MGon 05-06-2024 Magnesium [Mass/Vol] 2.2 mg/dL Normal 1.6-2.4 [facility] Comment on above: Performed By: #### M DW, MG, TROPHS, ANEU, GFR, CBC, ADIFF, CMP ####[facility] [place] [address] No Panel Informationon 05-06 Culture Urine 50,000 - 100,000 cfu/ml Multiple bacterial morphotypes present. Probable Contamination. Suggest recollection if clinically indicated. [facility] Work Phone: TROPHSon 05-06-2024 High Sensitivity Troponin I 22 ng/L Normal 0-34 [facility] Comment on above: Result Comment: High Sensitive Troponin I Reference Ranges: Female: 0-34 ng/L Male: 0-54 ng/L Testing performed on [employer] analyzer using direct chemiluminescent technology. Performed By: #### M DW, MG, TROPHS, ANEU, GFR, CBC, ADIFF, CMP ####[place] [address] [place] [address] XR CHEST 1 VIEWon 05-06-2024 XR CHEST [...] 05/06/2024 10:25:19 PM Ordering Provider: TARA Anders [facility] MRI BRAIN W/ + W/O CONTRASTo n [...] 05/02/2024 8:58:40 AM Ordering Provider: JAMES LEACH [facility] .GFRon 04-29-2024 GFR 68 ml/min/1.73sqm [facility] Comment on above: Result Comment: GFR Population [...] square meters Performed By: #### G , [facility] #### [address] [address] GFR Non- 56 ml/min/1.73sqm [facility] Comment on above: Result Comment: GFR Population [...] Performed By: #### Allison MACEDO, CMP #### [address] [address] CMPon 04-29-2024 Albumin Level 3.6 G/dL Normal 3.4-4.8 [facility] Comment on above: Performed By: #### Allison MACEDO, CMP #### [address] [address] Albumin/Globulin [Mass ratio] 1.4 {ratio} Normal 1.1-2.5 [facility] Comment on above: Performed By: #### Allison MACEDO, CMP #### [address] [address] ALP [Catalytic activity/Vol] 129 U/L Normal 40-135 [facility] Comment on above: Performed By: #### Allison MACEDO, CMP #### [address] [address] ALT [Catalytic activity/Vol] 18 U/L Normal 14-59 [facility] Comment on above: Performed By: #### Allison MACEDO, CMP #### [address] [address] AST [Catalytic activity/Vol] 16 U/L Normal 10-40 [facility] Comment on above: Performed By: #### Allison MACEDO, CMP #### [address] [address] Bili Total 0.6 mg/dL Normal 0.2-1.0 [facility] Comment on above: Result Comment: Use of this assay is not recommended for patients undergoing treatment with eltrombopag due to the potential for falsely elevated results. Performed By: #### Allison MACEDO, CMP #### [address] [address] BUN/Creatinine Ratio 15 ratio Normal 7-27 [facility] Comment on above: Performed By: #### Allison MACEDO, CMP #### [address] [address] Calcium [Mass/Vol] 10.3 mg/dL High 8.4-10.2 [facility] Comment on above: Performed By: #### G FR, CMP #### [address] [address] Chloride [Moles/Vol] 102 mmol/L Normal 98-107 [facility] Comment on above: Performed By: #### G FR, CMP #### [address] [address] CO2 [Moles/Vol] 29 mmol/L Normal 23-31 [facility] Comment on above: Performed By: #### G , CMP #### [address] [address] Creatinine [Mass/Vol] 0.95 mg/dL Normal 0.55-1.02 [facility] Comment on above: Result Comment: Test ing performed on Siemens Dimension EXL analyzer using a modified kinetic Victor M technique. Performed By: #### G , CMP #### [address] [address] Electrolyte Balance 8.0 mEq/L Normal 4.0-15.0 [facility] Comment on above: Performed By: #### G FR, CMP #### [address] [address] Globulin 2.5 G/dL Normal [facility] Comment on above: Performed By: #### G FR, CMP #### [address] [address] Glucose [Mass/Vol] 105 mg/dL Normal 83-110 [facility] Comment on above: Performed By: #### G FR, CMP #### [address] [address] Potassium [Moles/Vol] 4.3 mmol/L Normal 3.5-5.1 [facility] Comment on above: Performed By: #### G FR, CMP #### [address] [address] Sodium [Moles/Vol] 139 mmol/L Normal 136-145 [facility] Comment on above: Performed By: #### G , CMP #### [place] [address] [place], [place] [address] Total Protein 6.1 G/dL Low 6.4-8.2 [facility] Comment on above: Performed By: #### G , CMP #### [place] [address] [place], [place] [address] Urea nitrogen [Mass/Vol] 14 mg/dL Normal 7-18 [facility] Comment on above: Performed By: #### G , CMP #### [address] [address] LABORATORYOrdered By: SYSTEM SYSTEM on 04-29-2024 Albumin [...] 04-29-2024 Cholesterol [Mass/Vol] 152 mg/dL Normal 0-200 [facility] Comment on above: Result Comment: Chol esterol Reference Interval: Less than 200 Desirable 200-239 Borderline high risk 240 and above High risk Performed By: #### L IPID #### [address] [address] Cholesterol in HDL [Mass/Vol] 50 mg/dL Normal 40-60 [facility] Comment on above: Performed By: #### L IPID #### [address] [address] Cholesterol in LDL [Mass/Vol] 70 mg/dL Normal 0-130 [facility] Comment on above: Performed By: #### L IPID #### [address] [address] Triglyceride [Mass/Vol] 158 mg/dL High 0-150 [facility] Comment on above: Result Comment: Trig lyceride Reference Interval: Less than 150 Normal 150-199 Borderline high risk 200-499 High risk 500 or higher Very high risk Performed By: #### L IPID #### [address] [address] XR KNEE THREE VIEWS LEFTon 1 XR [...] 04/29/2024 11:00:58 AM Ordering Provider: CHARLI Anders [facility] .Auto Diffon 02-27-2024 Basophil, Absolute 0.2 10 3/mcL Normal 0.0-0.2 [facility] ([place]) Comment on above: Performed By: #### B MP, LIPID, GFR #### [address] [address] Basophils/100 WBC (Bld) 1.7 % Normal 0.0-2.5 [facility] ([place]) Comment on above: Performed By: #### B MP, LIPID, GFR #### [address] [address] Eosinophil, Absolute 0.3 10 3/mcL Normal 0.0-0.4 [facility] ([place]) Comment on above: Performed By: #### B MP, LIPID, GFR #### [address] [address] Eosinophils/100 WBC (Bld) 2.6 % Normal 0.0-7.0 Count Includes [facility] ([place]) Comment on above: Performed By: #### B MP, LIPID, GFR #### [address] [address] Lymphocyte, Absolute 1.8 10 3/mcL Normal 0.8-3.9 [facility] ([place]) Comment on above: Performed By: #### B MP, LIPID, GFR #### [address] [address] Lymphocytes/100 WBC (Bld) 17.9 % Normal 10.0-50.0 Count Includes [facility] ([place]) Comment on above: Performed By: #### B MP, LIPID, GFR #### [address] [address] Monocyte, Absolute 1.0 10 3/mcL Normal 0.2-1.0 [facility] ([place]) Comment on above: Performed By: #### B MP, LIPID, GFR #### [address] [address] Monocytes/100 WBC (Bld) 9.8 % Normal 1.7-13.0 [facility] ([place]) Comment on above: Performed By: #### B MP, LIPID, GFR #### [address] [address] Neutrophils/100 WBC (Bld) 68.0 % Normal 37.0-80.0 Count Includes [facility] ([place]) Comment on above: Performed By: #### B MP, LIPID, GFR #### [address] [address] .GFRon 02-27-2024 GFR 91 ml/min/1.73sqm Normal Count Includes [facility] ([place]) Comment on above: Result Comment: GFR Population [...] By: #### B MP, LIPID, GFR #### [address] [address] GFR Non- 75 ml/min/1.73sqm Normal Count Includes [facility] ([place]) Comment on above: Result Comment: GFR Population [...] By: #### B MP, LIPID, GFR #### [address] [address] .MDWon 02-27-2024 Monocyte Distribution Width 18.87 Normal 0.00-20.00 Count Includes [facility] ([place]) Comment on above: Result Comment: For ED adult patients suspected of sepsis, MDW<=20.0 does not rule out sepsis or risk of sepsis Performed By: #### B MP, LIPID, GFR #### [address] [address] .NEUABSon 02-27-2024 Neutrophil, Absolute 7.0 10 3/mcL High 2.9-6.2 [facility] ([place]) Comment on above: Performed By: #### B MP, LIPID, GFR #### [address] [address] BMPon 02-27-2024 BUN/Creatinine Ratio 22 ratio Normal 7-27 [facility] ([place]) Comment on above: Performed By: #### B MP, LIPID, GFR #### [address] [address] Calcium [Mass/Vol] 10.1 mg/dL Normal 8.4-10.2 [facility] ([place]) Comment on above: Performed By: #### B MP, LIPID, GFR #### [address] [address] Chloride [Moles/Vol] 104 mmol/L Normal 98-107 [facility] ([place]) Comment on above: Performed By: #### B MP, LIPID, GFR #### [address] [address] CO2 [Moles/Vol] 24 mmol/L Normal 23-31 Count Includes [facility] ([place]) Comment on above: Performed By: #### B MP, LIPID, GFR #### [address] [address] Creatinine [Mass/Vol] 0.74 mg/dL Normal 0.55-1.02 [facility] ([place]) Comment on above: Performed By: #### B MP, LIPID, GFR #### [address] [address] Electrolyte Balance 11.0 mEq/L Normal 4.0-15.0 [facility] ([place]) Comment on above: Performed By: #### B MP, LIPID, GFR #### [address] [address] Glucose [Mass/Vol] 99 mg/dL Normal 83-110 [facility] ([place]) Comment on above: Performed By: #### B MP, LIPID, GFR #### [address] [address] Potassium [Moles/Vol] 4.6 mmol/L Normal 3.5-5.1 [facility] ([place]) Comment on above: Performed By: #### B MP, LIPID, GFR #### [address] [address] Sodium [Moles/Vol] 139 mmol/L Normal 136-145 [facility] ([place]) Comment on above: Performed By: #### B MP, LIPID, GFR #### [address] [address] Urea nitrogen [Mass/Vol] 16 mg/dL Normal 7-18 Count Includes [facility] ([place]) Comment on above: Performed By: #### B MP, LIPID, GFR #### [address] [address] CBCon 02-27-2024 Erythrocyte distribution width (RBC) [Ratio] 13.8 % Normal 11.5-14.5 Count Includes [facility] ([place]) Comment on above: Performed By: #### B MP, LIPID, GFR #### [address] [address] Hematocrit (Bld) [Volume fraction] 44.0 % Normal 37.0-47.0 Count Includes [facility] ([place]) Comment on above: Performed By: #### B MP, LIPID, GFR #### [place] [id number] Hgb 14.7 G/dL Normal 12.0-16.0 Count Includes [facility] ([place] Comment on above: Performed By: #### B MP, LIPID, GFR #### [address] [address] MCH (RBC) [Entitic mass] 28.7 pg Normal 27.0-31.2 Count Includes [facility] ([place] Comment on above: Performed By: #### B MP, LIPID, GFR #### [place] [id number] MCHC 33.5 G/dL Normal 33.0-37.0 Count Includes [facility] ([place] Comment on above: Performed By: #### B MP, LIPID, GFR #### [address] [address] MCV (RBC) [Entitic vol] 85.6 fL Normal 80.0-94.0 [facility] ([place]) Comment on above: Performed By: #### B MP, LIPID, GFR #### [address] [address] Platelet 246 10 3/mcL Normal 130-400 Count Includes [facility] ([place] Comment on above: Performed By: #### B MP, LIPID, GFR #### [address] [address] Platelet mean volume (Bld) [Entitic vol] 8.1 fL Normal 7.4-10.4 Count Includes [facility] ([place] Comment on above: Performed By: #### B MP, LIPID, GFR #### [address] [address] RBC 5.14 10 6/mcL Normal 4.20-5.40 Count Includes [facility] ([place] Comment on above: Performed By: #### B MP, LIPID, GFR #### [address] [address] WBC 10.3 10 3/mcL Normal 4.6-10.8 Count Includes [facility] ([place]) Comment on above: Performed By: #### B MP, LIPID, GFR #### [address] [address] [address] HEAD OR BRAIN W/O CONTRAS Ton [...] 02/27/2024 3:59:00 PM Ordering Provider: TARA Anders Count Includes [facility] ([place]) LABORATORYOrdered By: SYSTEM SYSTEM on 02-27-2024 Basophil, [...] ng/L Male: 0-76 ng/L Testing performed on [employer] using a homogeneous sandwich chemiluminescent immunoassay based on [employer] technology. Urea nitrogen [Mass/Vol] 16 mg/dL Normal 7 - 18 mg/dL AO ADM SS Urea nitrogen/Creatinine [Mass ratio] 22 ratio Normal 7 - 27 ratio AO ADM SS WBC (Bld) [#/Vol] 10.3 103/mcL Normal 4.6 - 10.8 10^3/mcL AO Workflow SS TROPHSon 02-27-2024 High Sensitivity Troponin I 12 ng/L Normal 0-51 Count Includes [facility] ([place]) Comment on above: Result Comment: High Sensitive Troponin I Reference Ranges: Female: 0-51 ng/L Male: 0-76 ng/L Testing performed on [employer] using a homogeneous sandwich chemiluminescent immunoassay based on [employer] technology. Performed By: #### B MP, LIPID, GFR #### [place] [address] .Auto Diffon 02-14-2024 Basophil, Absolute 0.1 10 3/mcL Normal 0.0-0.2 [facility] ([place]) Comment on above: Performed By: #### M ALBR #### [place] [address] [address] Basophils/100 WBC (Bld) 1.0 % Normal 0.0-2.5 [facility] ([place]) Comment on above: Performed By: #### M ALBR #### [address] [address] Eosinophil, Absolute 0.2 10 3/mcL Normal 0.0-0.4 [facility] ([place]) Comment on above: Performed By: #### M ALBR #### [address] [address] Eosinophils/100 WBC (Bld) 3.5 % Normal 0.0-7.0 Count Includes [facility] ([place]) Comment on above: Performed By: #### M ALBR #### [address] [address] Lymphocyte, Absolute 1.4 10 3/mcL Normal 0.8-3.9 [facility] ([place]) Comment on above: Performed By: #### M ALBR #### [address] [address] Lymphocytes/100 WBC (Bld) 22.0 % Normal 10.0-50.0 Count Includes [facility] ([place] Comment on above: Performed By: #### M ALBR #### [address] [address] Monocyte, Absolute 0.6 10 3/mcL Normal 0.2-1.0 [facility] ([place]) Comment on above: Performed By: #### M ALBR #### [address] [address] Monocytes/100 WBC (Bld) 10.4 % Normal 1.7-13.0 [facility] ([place]) Comment on above: Performed By: #### M ALBR #### [address] [address] Neutrophils/100 WBC (Bld) 63.1 % Normal 37.0-80.0 Count Includes [facility] ([place]) Comment on above: Performed By: #### M ALBR #### [address] [address] .GFRon 02-14-2024 GFR 88 ml/min/1.73sqm Normal Count Includes [facility] ([place] Comment on above: Result Comment: GFR Population [...] By: #### B MP, LIPID, GFR #### [address] [address] GFR Non- 73 ml/min/1.73sqm Normal Count Includes [facility] ([place]) Comment on above: Result Comment: GFR Population [...] By: #### B MP, LIPID, GFR #### [address] [address] .MDWon 02-14-2024 Monocyte Distribution Width 17.95 Normal 0.00-20.00 Count Includes [facility] ([place]) Comment on above: Result Comment: For ED adult patients suspected of sepsis, MDW<=20.0 does not rule out sepsis or risk of sepsis Performed By: #### B MP, LIPID, GFR #### [address] [address] .NEUABSon 02-14-2024 Neutrophil, Absolute 4.0 10 3/mcL Normal 2.9-6.2 [facility] ([place]) Comment on above: Performed By: #### M ALBR #### [address] [address] BMPon 02-14-2024 BUN/Creatinine Ratio 22 ratio Normal 7-27 [facility] ([place]) Comment on above: Performed By: #### B MP, LIPID, GFR #### [address] [address] Calcium [Mass/Vol] 10.0 mg/dL Normal 8.4-10.2 [facility] ([place]) Comment on above: Performed By: #### B MP, LIPID, GFR #### [address] [address] Chloride [Moles/Vol] 108 mmol/L High 98-107 [facility] ([place]) Comment on above: Performed By: #### B MP, LIPID, GFR #### [address] [address] CO2 [Moles/Vol] 27 mmol/L Normal 23-31 Count Includes [facility] ([place]) Comment on above: Performed By: #### B MP, LIPID, GFR #### [address] [address] Creatinine [Mass/Vol] 0.76 mg/dL Normal 0.55-1.02 [facility] ([place]) Comment on above: Performed By: #### B MP, LIPID, GFR #### [address] [address] Electrolyte Balance 8.0 mEq/L Normal 4.0-15.0 [facility] ([place]) Comment on above: Performed By: #### B MP, LIPID, GFR #### [address] [address] Glucose [Mass/Vol] 100 mg/dL Normal 83-110 [facility] ([place]) Comment on above: Performed By: #### B MP, LIPID, GFR #### [address] [address] Potassium [Moles/Vol] 4.4 mmol/L Normal 3.5-5.1 [facility] ([place]) Comment on above: Performed By: #### B MP, LIPID, GFR #### [address] [address] Sodium [Moles/Vol] 143 mmol/L Normal 136-145 [facility] ([place]) Comment on above: Performed By: #### B MP, LIPID, GFR #### [place] [address] Urea nitrogen [Mass/Vol] 17 mg/dL Normal 7-18 Count Includes [facility] ([place]) Comment on above: Performed By: #### B MP, LIPID, GFR #### [place] [address] CBCon 02-14-2024 Erythrocyte distribution width (RBC) [Ratio] 14.1 % Normal 11.5-14.5 Count Includes [facility] ([place]) Comment on above: Performed By: #### M ALBR #### [address] [address] Hematocrit (Bld) [Volume fraction] 43.1 % Normal 37.0-47.0 Count Includes [facility] ([place]) Comment on above: Performed By: #### M ALBR #### [address] [address] Hgb 14.5 G/dL Normal 12.0-16.0 Count Includes [facility] ([place]) Comment on above: Performed By: #### M ALBR #### [address] [address] MCH (RBC) [Entitic mass] 28.6 pg Normal 27.0-31.2 Count Includes [facility] ([place]) Comment on above: Performed By: #### M ALBR #### [address] [address] MCHC 33.6 G/dL Normal 33.0-37.0 Count Includes [facility] ([place]) Comment on above: Performed By: #### M ALBR #### [address] [address] MCV (RBC) [Entitic vol] 85.0 fL Normal 80.0-94.0 [facility] ([place]) Comment on above: Performed By: #### M ALBR #### [place] [address] [place], [place] [address] Platelet 231 10 3/mcL Normal 130-400 Count Includes [facility] ([place]) Comment on above: Performed By: #### M ALBR #### [place] [address] Platelet mean volume (Bld) [Entitic vol] 7.6 fL Normal 7.4-10.4 Count Includes [facility] ([place] Comment on above: Performed By: #### M ALBR #### [address] [address] RBC 5.07 10 6/mcL Normal 4.20-5.40 Count Includes [facility] ([place]) Comment on above: Performed By: #### M ALBR #### [address] [address] WBC 6.3 10 3/mcL Normal 4.6-10.8 Count Includes [facility] ([place]) Comment on above: Performed By: #### M ALBR #### [address] [address] LABORATORYOrdered By: Carolynn Gonzales on 02-14-2024 Appearance [...] SS UAon 02-14-2024 Color (U) Yellow Normal Count Includes [facility] ([place]) Comment on above: Performed By: #### B MP, LIPID, GFR #### [address] [address] Glucose (U) [Mass/Vol] Negative Normal Negative [facility] ([place]) Comment on above: Performed By: #### B MP, LIPID, GFR #### [address] [address] Ketones Ql (U) Negative Normal Negative Count Includes [facility] ([place]) Comment on above: Performed By: #### B MP, LIPID, GFR #### [address] [address] UA Appear Clear Normal Clear Count Includes [facility] ([place] Comment on above: Performed By: #### B MP, LIPID, GFR #### [address] [address] UA Blood Negative Normal Negative Count Includes [facility] ([place]) Comment on above: Performed By: #### B MP, LIPID, GFR #### [address] [address] UA Leuk Est Negative Normal Negative Count Includes [facility] ([place]) Comment on above: Performed By: #### B MP, LIPID, GFR #### [address] [address] UA Nitrite Negative Normal Negative Count Includes [facility] ([place]) Comment on above: Performed By: #### B MP, LIPID, GFR #### [address] [address] UA pH 7.0 Normal 5.0 - 8.0 Count Includes [facility] ([place]) Comment on above: Performed By: #### B MP, LIPID, GFR #### [address] [address] UA Protein Negative Normal Negative Count Includes [facility] ([place] Comment on above: Performed By: #### B MP, LIPID, GFR #### [address] [address] UA Spec Grav 1.020 Normal 1.015-1.025 Count Includes [facility] ([place]) Comment on above: Performed By: #### B MP, LIPID, GFR #### [address] [address] UA Specimen Type Clean Catch Normal Count Includes [facility] ([place]) Comment on above: Performed By: #### B MP, LIPID, GFR #### [address] [address] UA Urobilinogen 0.2 E.U./dL Normal 0.2-1.0 Count Includes [facility] ([place]) Comment on above: Performed By: #### B MP, LIPID, GFR #### [address] [address] Urobilinogen (U) [Mass/Vol] Negative Normal Negative Count Includes [facility] ([place]) Comment on above: Performed By: #### B MP, LIPID, GFR #### [id number] [place], [place] [address] MRI BRAIN W/ + W/O CONTRASTo n [...] Sign Date: 02/06/2024 4:06:44 PM Ordering Provider: [facility] ([place]) [place] SPINE CERVICAL W/O CONTR Saud 02-06-2024 [...] levels, without stenosis. Interpreted by: Fabian Del Roi MD Preliminary Report By: Fabian Del Rio MD Electronically signed By Fabian Del Rio MD Dictated Date: 02/06/2024 3:27:54 PM Prelim Date: 02/06/2024 3:30:54 PM Sign Date: 02/06/2024 3:30:54 PM Ordering Provider: [facility] ([place]) .Auto Diffon 01-09-2024 Basophil, Absolute 0.1 10 3/mcL Normal 0.0-0.2 [facility] ([place]) Comment on above: Performed By: #### A 1C, LIPID, CMP, MG, ADIFF, GFR, ANEU, FT4, TSH, VIDH, CBC #### [address] [address] #### B12 #### [address] [address] Basophils/100 WBC (Bld) 1.1 % Normal 0.0-2.5 [facility] ([place]) Comment on above: Performed By: #### A 1C, LIPID, CMP, MG, ADIFF, GFR, ANEU, FT4, TSH, VIDH, CBC #### [place] [address] #### B12 #### [address] [address] Eosinophil, Absolute 0.3 10 3/mcL Normal 0.0-0.4 [facility] ([place]) Comment on above: Performed By: #### A 1C, LIPID, CMP, MG, ADIFF, GFR, ANEU, FT4, TSH, VIDH, CBC #### [place] [address] #### B12 #### [address] [address] Eosinophils/100 WBC (Bld) 4.3 % Normal 0.0-7.0 Count Includes [facility] ([place]) Comment on above: Performed By: #### A 1C, LIPID, CMP, MG, ADIFF, GFR, ANEU, FT4, TSH, VIDH, CBC #### [address] [address] #### B12 #### [address] [address] Lymphocyte, Absolute 1.5 10 3/mcL Normal 0.8-3.9 [facility] ([place]) Comment on above: Performed By: #### A 1C, LIPID, CMP, MG, ADIFF, GFR, ANEU, FT4, TSH, VIDH, CBC #### [place] [address] #### B12 #### [address] [address] Lymphocytes/100 WBC (Bld) 21.8 % Normal 10.0-50.0 Count Includes [facility] ([place]) Comment on above: Performed By: #### A 1C, LIPID, CMP, MG, ADIFF, GFR, ANEU, FT4, TSH, VIDH, CBC #### [address] [address] #### B12 #### [address] [address] Monocyte, Absolute 0.6 10 3/mcL Normal 0.2-1.0 [facility] ([place]) Comment on above: Performed By: #### A 1C, LIPID, CMP, MG, ADIFF, GFR, ANEU, FT4, TSH, VIDH, CBC #### [address] [address] #### B12 #### [address] [address] Monocytes/100 WBC (Bld) 8.8 % Normal 1.7-13.0 [facility] ([place]) Comment on above: Performed By: #### A 1C, LIPID, CMP, MG, ADIFF, GFR, ANEU, FT4, TSH, VIDH, CBC #### [address] [address] #### B12 #### [address] [address] Neutrophils/100 WBC (Bld) 64.0 % Normal 37.0-80.0 Count Includes [facility] ([place]) Comment on above: Performed By: #### A 1C, LIPID, CMP, MG, ADIFF, GFR, ANEU, FT4, TSH, VIDH, CBC #### [address] [address] #### B12 #### [address] [address] .GFRon 01-09-2024 GFR Non- 83 ml/min/1.73sqm Normal Count Includes [facility] ([place]) Comment on above: Result Comment: GFR Population [...] meters Performed By: #### M ALBR #### [address] [address] GFR 100 ml/min/1.73sqm Normal Count Includes [facility] ([place]) Comment on above: Result Comment: GFR Population [...] meters Performed By: #### M ALBR #### [address] [address] .NEUABSon 01-09-2024 Neutrophil, Absolute 4.3 10 3/mcL Normal 2.9-6.2 [facility] ([place]) Comment on above: Performed By: #### A 1C, LIPID, CMP, MG, ADIFF, GFR, ANEU, FT4, TSH, VIDH, CBC #### [address] [address] #### B12 #### [address] [address] A1Con 01-09-2024 HbA1c (Bld) [Mass fraction] 5.4 % Normal 4.3-6.4 Count Includes [facility] ([place] Comment on above: Performed By: #### A 1C, LIPID, CMP, MG, ADIFF, GFR, ANEU, FT4, TSH, VIDH, CBC #### [address] [address] #### B12 #### [address] [address] B12on 01-09-2024 Cobalamin (Vitamin B12) [Mass/Vol] 370 pg/mL Normal 211-911 Count Includes [facility] ([place]) Comment on above: Performed By: #### M ALBR #### [place] [address] CBCon 01-09-2024 Erythrocyte distribution width (RBC) [Ratio] 13.5 % Normal 11.5-14.5 Count Includes [facility] ([place] Comment on above: Performed By: #### A 1C, LIPID, CMP, MG, ADIFF, GFR, ANEU, FT4, TSH, VIDH, CBC #### [place] [address] #### B12 #### [place] [address] Hematocrit (Bld) [Volume fraction] 45.1 % Normal 37.0-47.0 Count Includes [facility] ([place] Comment on above: Performed By: #### A 1C, LIPID, CMP, MG, ADIFF, GFR, ANEU, FT4, TSH, VIDH, CBC #### [place] [address] #### B12 #### [place] [address] Hgb 15.1 G/dL Normal 12.0-16.0 Count Includes [facility] ([place] Comment on above: Performed By: #### A 1C, LIPID, CMP, MG, ADIFF, GFR, ANEU, FT4, TSH, VIDH, CBC #### [place] [address] #### B12 #### [place] [address] MCH (RBC) [Entitic mass] 28.4 pg Normal 27.0-31.2 Count Includes [facility] ([place] Comment on above: Performed By: #### A 1C, LIPID, CMP, MG, ADIFF, GFR, ANEU, FT4, TSH, VIDH, CBC #### [place] [address] #### B12 #### [place] [address] MCHC 33.6 G/dL Normal 33.0-37.0 Count Includes [facility] ([place] Comment on above: Performed By: #### A 1C, LIPID, CMP, MG, ADIFF, GFR, ANEU, FT4, TSH, VIDH, CBC #### [place] [address] #### B12 #### [place] [address] MCV (RBC) [Entitic vol] 84.7 fL Normal 80.0-94.0 [facility] ([place]) Comment on above: Performed By: #### A 1C, LIPID, CMP, MG, ADIFF, GFR, ANEU, FT4, TSH, VIDH, CBC #### [place] [address] #### B12 #### [place] [address] Platelet 258 10 3/mcL Normal 130-400 Count Includes [facility] ([place]) Comment on above: Performed By: #### A 1C, LIPID, CMP, MG, ADIFF, GFR, ANEU, FT4, TSH, VIDH, CBC #### [place] [address] #### B12 #### [place] [address] Platelet mean volume (Bld) [Entitic vol] 8.3 fL Normal 7.4-10.4 Count Includes [facility] ([place] Comment on above: Performed By: #### A 1C, LIPID, CMP, MG, ADIFF, GFR, ANEU, FT4, TSH, VIDH, CBC #### [place] [address] #### B12 #### [place] [address] RBC 5.33 10 6/mcL Normal 4.20-5.40 Count Includes [facility] ([place]) Comment on above: Performed By: #### A 1C, LIPID, CMP, MG, ADIFF, GFR, ANEU, FT4, TSH, VIDH, CBC #### [address] [address] #### B12 #### [place] [address] WBC 6.8 10 3/mcL Normal 4.6-10.8 Count Includes [facility] ([place]) Comment on above: Performed By: #### A 1C, LIPID, CMP, MG, ADIFF, GFR, ANEU, FT4, TSH, VIDH, CBC #### [address] [address] #### B12 #### [place] [address] CMPon 01-09-2024 Albumin Level 3.4 G/dL Normal 3.4-4.8 Count Includes [facility] ([place]) Comment on above: Performed By: #### M ALBR #### [address] [address] Albumin/Globulin [Mass ratio] 1.2 {ratio} Normal 1.1-2.5 Count Includes [facility] ([place]) Comment on above: Performed By: #### M ALBR #### [address] [address] ALP [Catalytic activity/Vol] 130 U/L Normal 40-135 Count Includes [facility] ([place]) Comment on above: Performed By: #### M ALBR #### [address] [address] ALT [Catalytic activity/Vol] 17 U/L Normal 14-59 Count Includes [facility] ([place]) Comment on above: Performed By: #### M ALBR #### [address] [address] AST [Catalytic activity/Vol] 12 U/L Normal 10-40 Count Includes [facility] ([place]) Comment on above: Performed By: #### M ALBR #### [address] [address] Bili Total 0.4 mg/dL Normal 0.2-1.0 Count Includes [facility] ([place]) Comment on above: Result Comment: Use of this assay is not recommended for patients undergoing treatment with eltrombopag due to the potential for falsely elevated results. Performed By: #### M ALBR #### [address] [address] BUN/Creatinine Ratio 21 ratio Normal 7-27 [facility] ([place]) Comment on above: Performed By: #### M ALBR #### [address] [address] Calcium [Mass/Vol] 10.0 mg/dL Normal 8.4-10.2 [facility] ([place]) Comment on above: Performed By: #### M ALBR #### [address] [address] Chloride [Moles/Vol] 106 mmol/L Normal 98-107 [facility] ([place]) Comment on above: Performed By: #### M ALBR #### [address] [address] CO2 [Moles/Vol] 24 mmol/L Normal 23-31 Count Includes [facility] ([place]) Comment on above: Performed By: #### M ALBR #### [address] [address] Creatinine [Mass/Vol] 0.68 mg/dL Normal 0.55-1.02 [facility] ([place]) Comment on above: Performed By: #### M ALBR #### [address] [address] Electrolyte Balance 12.0 mEq/L Normal 4.0-15.0 [facility] ([place]) Comment on above: Performed By: #### M ALBR #### [address] [address] Globulin 2.9 G/dL Normal Count Includes [facility] ([place]) Comment on above: Performed By: #### M ALBR #### [address] [place], [place] [address] Glucose [Mass/Vol] 88 mg/dL Normal 83-110 [facility] ([place]) Comment on above: Performed By: #### M ALBR #### [address] [place], [place] [address] Potassium [Moles/Vol] 4.6 mmol/L Normal 3.5-5.1 [facility] ([place]) Comment on above: Performed By: #### M ALBR #### [address] [address] Sodium [Moles/Vol] 142 mmol/L Normal 136-145 [facility] ([place]) Comment on above: Performed By: #### M ALBR #### [address] [address] Total Protein 6.3 G/dL Low 6.4-8.2 Count Includes [facility] ([place]) Comment on above: Performed By: #### M ALBR #### [address] [address] Urea nitrogen [Mass/Vol] 14 mg/dL Normal 7-18 Count Includes [facility] ([place]) Comment on above: Performed By: #### M ALBR #### [address] [address] FT4on 01-09-2024 Free T4 [Mass/Vol] 1.02 ng/dL Normal 0.76-1.46 [facility] ([place]) Comment on above: Performed By: #### M ALBR #### [address] [address] LABORATORYOrdered By: Allyson Dudley on 01-09-2024 Albumin [...] 01-09-2024 Cholesterol [Mass/Vol] 258 mg/dL High 0-200 [facility] ([place]) Comment on above: Result Comment: Chol esterol Reference Interval: Less than 200 Desirable 200-239 Borderline high risk 240 and above High risk Performed By: #### M ALBR #### [address] [address] Cholesterol in HDL [Mass/Vol] 47 mg/dL Normal 40-60 Count Includes [facility] ([place]) Comment on above: Performed By: #### M ALBR #### [address] [address] Cholesterol in LDL [Mass/Vol] 177 mg/dL High 0-130 Count Includes [facility] ([place]) Comment on above: Performed By: #### M ALBR #### [address] [place] [place], [place] [address] Triglyceride [Mass/Vol] 172 mg/dL High 0-150 [facility] ([place]) Comment on above: Result Comment: Trig lyceride Reference Interval: Less than 150 Normal 150-199 Borderline high risk 200-499 High risk 500 or higher Very high risk Performed By: #### M ALBR #### [address] [address] MALBRon 01-09-2024 U Creatinine 102.7 mg/dL Normal 28.0-117.0 Count Includes [facility] ([place]) Comment on above: Performed By: #### M ALBR #### [address] [address] U Microalb 846 mcg/dL Normal Count Includes [facility] ([place]) Comment on above: Performed By: #### M ALBR #### [address] [address] U Ratio Alb/Cre 8 mcg/mg Normal 0-30 Count Includes [facility] ([place]) Comment on above: Performed By: #### M ALBR #### [address] [address] MGon 01-09-2024 Magnesium [Mass/Vol] 2.0 mg/dL Normal 1.8-2.4 [facility] ([place]) Comment on above: Performed By: #### A 1C, LIPID, CMP, MG, ADIFF, GFR, ANEU, FT4, TSH, VIDH, CBC #### [address] [address] #### B12 #### [place] [address] TSHon 01-09-2024 TSH Qn 2.06 m[IU]/L Normal 0.36-3.74 Count Includes [facility] ([place]) Comment on above: Performed By: #### M ALBR #### [address] [address] VIDHon 01-09-2024 Vit. D 25-Hydroxy 55.7 ng/mL Normal Count Includes [facility] ([place]) Comment on above: Result Comment: Inte rpretive Values Based on Total 25(OH) Vitamin D: Deficient <20 ng/mL Insufficient 20 - <30 ng/mL Sufficient 30-100 ng/mL Performed By: #### M ALBR #### [address] [address] BD BONE DENSITY DEXA AXIAL S KELETONon [...] PM Ordering Provider: JAMES LEACH [facility] ([place]) .GFRon 07-25-2023 GFR 75 ml/min/1.73sqm Normal Count Includes [facility] ([place]) Comment on above: Result Comment: [...] By: #### B MP, LIPID, GFR #### [address] [address] GFR Non- 62 ml/min/1.73sqm Normal Count Includes [facility] ([place]) Comment on above: Result Comment: GFR Population [...] By: #### B MP, LIPID, GFR #### [address] [address] BMPon 07-25-2023 BUN/Creatinine Ratio 19 ratio Normal 7- [facility] ([place]) Comment on above: Performed By: #### B MP, LIPID, GFR #### [address] [address] Calcium [Mass/Vol] 10.8 mg/dL High 8.4-10.2 [facility] ([place]) Comment on above: Performed By: #### B MP, LIPID, GFR #### [address] [address] Chloride [Moles/Vol] 107 mmol/L Normal 98-107 [facility] ([place]) Comment on above: Performed By: #### B MP, LIPID, GFR #### [address] [address] CO2 [Moles/Vol] 25 mmol/L Normal 23-31 Count Includes [facility] ([place] Comment on above: Performed By: #### B MP, LIPID, GFR #### [address] [address] Creatinine [Mass/Vol] 0.88 mg/dL Normal 0.55-1.02 [facility] ([place]) Comment on above: Performed By: #### B MP, LIPID, GFR #### [address] [address] Electrolyte Balance 13.0 mEq/L Normal 4.0-15.0 [facility] ([place]) Comment on above: Performed By: #### B MP, LIPID, GFR #### [address] [address] Glucose [Mass/Vol] 100 mg/dL Normal 83-110 [facility] ([place]) Comment on above: Performed By: #### B MP, LIPID, GFR #### [address] [address] Potassium [Moles/Vol] 4.2 mmol/L Normal 3.5-5.1 [facility] ([place]) Comment on above: Performed By: #### B MP, LIPID, GFR #### [address] [address] Sodium [Moles/Vol] 145 mmol/L Normal 136-145 [facility] ([place]) Comment on above: Performed By: #### B MP, LIPID, GFR #### [address] [address] Urea nitrogen [Mass/Vol] 17 mg/dL Normal 7-18 Count Includes [facility] ([place] Comment on above: Performed By: #### B MP, LIPID, GFR #### [address] [place] [id number] [place] [address] LABORATORYOrdered By: SYSTEM SYSTEM on 07-25-2023 Calcium [...] 07-25-2023 Cholesterol [Mass/Vol] 195 mg/dL Normal 0-200 [facility] ([place]) Comment on above: Result Comment: Chol esterol Reference Interval: Less than 200 Desirable 200-239 Borderline high risk 240 and above High risk Performed By: #### B MP, LIPID, GFR #### [address] [address] Cholesterol in HDL [Mass/Vol] 52 mg/dL Normal 40-60 Count Includes [facility] ([place]) Comment on above: Performed By: #### B MP, LIPID, GFR #### [address] [address] Cholesterol in LDL [Mass/Vol] 108 mg/dL Normal 0-130 Count Includes [facility] ([place]) Comment on above: Performed By: #### B MP, LIPID, GFR #### [address] [place], [place] [address] Triglyceride [Mass/Vol] 176 mg/dL High 0-150 [facility] ([place]) Comment on above: Result Comment: Trig lyceride Reference Interval: Less than 150 Normal 150-199 Borderline high risk 200-499 High risk 500 or higher Very high risk Performed By: #### B MP, LIPID, GFR #### [address] [place], [place] [address] LABORATORYOrdered By: Erin Boateng on 03-01-2022 Albumin [...] OBSOLETEon 08-11-2019 OBSOLETE Refill (JEAN) YURI QUINTERO ([id number]) 1940 F Date Time Provider Department 08/11/19 JIE BARRY During your visit today, we recorded the following information about you: Allergies As of Date: 08/11/2019 (Not on File) Date Reviewed: Never Reviewed Reason for Visit: Refill Request [94] Problem List As Of Date: 08/11/2019 (None) Encounter Status:Closed by MADDIE CASE on 08/28/[address] [facility] Pulmonary Function Studieson 02-02-2017 Pulmonary Function Studies Normal Count Includes [facility] Vital Signs Date Time Vital Sign Value Performing Clinician Facility 11-10-2024 20:59-0400 Body temperature 98.2 [degF] Dr. Urbano Foss Work Phone: 4(852)387-665050 [place] [address] 11-10-2024 20:59-0400 Diastolic blood pressure 47 mm[Hg] Dr. Urbano Foss Work Phone: 4(350)549-680003 [address] 11-10-2024 20:59-0400 Heart rate 58 /min Dr. Urbano Foss Work Phone: 5(258)903-101973 [place] [address] 11-10-2024 20:59-0400 Respiratory rate 16 /min Dr. Urbano Foss Work Phone: 0(152)678-841773 [place] [address] 11-10-2024 20:59-0400 SaO2% (BldA) [Mass fraction] 99 % Dr. Urbano Foss Work Phone: 0(093)519-834373 [place] [address] 11-10-2024 20:59-0400 Systolic blood pressure 127 mm[Hg] Dr. Urbano Foss Work Phone: 7(195)277-134773 [place] [address] 11-10-2024 20:19-0400 Inhaled oxygen flow rate 2 L/min Dr. Urbano Foss Work Phone: 7(394)028-917873 [place] [address] 11-10-2024 18:21-0400 Body height 144.[address] Urbano Foss Work Phone: 5(338)839-610273 [place] [address] 11-10-2024 18:21-0400 Body mass index (BMI) [Ratio] 36.4 kg/m2 Dr. Urbano Foss Work Phone: 6(632)761-114573 [place] [address] 11-10-2024 18:21-0400 Body weight 76.[address] Urbano Foss Work Phone: 2(329)138-826627 [place] [address] 09-18-2024 13:14-0500 Body temperature 97.7 [degF] Dr. Urbano Foss Work Phone: 8(402)382-751527 [place] [address] 09-18-2024 13:14-0500 Diastolic blood pressure 57 mm[Hg] Dr. Urbano Foss Work Phone: 3(376)750-725027 [place] [address] 09-18-2024 13:14-0500 Heart rate 66 /min Dr. Urbano Mir DO Work Phone: 9(420)741-835327 [place] [address] 09-18-2024 13:14-0500 Respiratory rate 13 /min Dr. Urbano Foss Work Phone: 8(268)829-507527 [place] [address] 09-18-2024 13:14-0500 SaO2% (BldA) [Mass fraction] 97 % Dr. Urbano Foss Work Phone: 4(502)570-336627 [place] [address] 09-18-2024 13:14-0500 Systolic blood pressure 123 mm[Hg] Dr. Urbano Foss Work Phone: 5(146)959-481127 [place] [address] 09-18-2024 09:52-0500 Body mass index (BMI) [Ratio] 37.5 kg/m2 Dr. Urbano Foss Work Phone: 9(454)103-616927 [place] [address] 09-18-2024 09:52-0500 Body weight 78.[address] Urbano Foss Work Phone: 4(921)982-888227 [place] [address] 09-18-2024 09:52-0500 Inhaled oxygen flow rate 4 L/min Dr. Urbano Foss Work Phone: 3(924)794-410527 [place] [address] 09-02-2024 19:46-0500 Heart rate 86 /min Dr. Urbano Foss Work Phone: 6(977)966-041727 [place] [address] 09-02-2024 19:46-0500 Inhaled oxygen flow rate 2 L/min Dr. Urbano Foss Work Phone: 4(617)313-186473 [place] [address] 09-02-2024 19:46-0500 Respiratory rate 20 /min Dr. Urbano Mir DO Work Phone: 2(527)416-579673 [place] [address] 09-02-2024 19:46-0500 SaO2% (BldA) [Mass fraction] 92 % Dr. Urbano Foss Work Phone: 2(912)630-542673 [place] [address] 09-02-2024 19:35-0500 Body temperature 97.7 [degF] Dr. Urbano Foss Work Phone: 9(584)880-626573 [place] [address] 09-02-2024 19:35-0500 Diastolic blood pressure 49 mm[Hg] Dr. Urbano Mir DO Work Phone: 1(804)236-265127 [place] [address] 09-02-2024 19:35-0500 Systolic blood pressure 126 mm[Hg] Dr. Urbano Foss Work Phone: 8(084)135-166927 [place] [address] 09-01-2024 13:16-0500 Body weight 74.[address] Urbano Foss Work Phone: 5(596)231-961627 [place] [address] 08-29-2024 18:59-0500 Body mass index (BMI) [Ratio] 48.2 kg/m2 Dr. Urbano Foss Work Phone: 0(576)692-105127 [place] [address] 08-28-2024 16:00-0500 Diastolic blood pressure 80 mm[Hg] Dr. Urbano Foss Work Phone: 7(225)049-349327 [place] [address] 08-28-2024 16:00-0500 Heart rate 80 /min Dr. Urbano Foss Work Phone: 1(500)814-858573 [place] [address] 08-28-2024 16:00-0500 Respiratory rate 16 /min Dr. Urbano Foss Work Phone: 6(701)745-129473 [place] [address] 08-28-2024 16:00-0500 SaO2% (BldA) [Mass fraction] 98 % Dr. Urbano Foss Work Phone: 4(575)122-764773 [place] [address] 08-28-2024 16:00-0500 Systolic blood pressure 112 mm[Hg] Dr. Urbano Foss Work Phone: 7(048)333-169727 [place] [address] 08-28-2024 15:27-0500 Body temperature 97.9 [degF] Dr. Urbano Mir DO Work Phone: 0(774)174-299173 [place] [address] 08-28-2024 15:10-0500 Inhaled oxygen flow rate 2 L/min Dr. Urbano Mir DO Work Phone: 7(343)089-462127 [place] [address] 08-28-2024 10:35-0500 Body mass index (BMI) [Ratio] 35.7 kg/m2 Dr. Urbano Mir DO Work Phone: 9(189)768-477073 [place] [address] 08-28-2024 10:35-0500 Body weight [address] Urbano Mir DO Work Phone: 9(224)687-453427 [place] [address] 08-15-2024 14:15-0500 Body temperature 98.4 [degF] Dr. Urbano Foss Work Phone: 0(182)272-975827 [place] [address] 08-15-2024 14:15-0500 Diastolic blood pressure 76 mm[Hg] Dr. Urbano Foss Work Phone: 5(161)499-757427 [place] [address] 08-15-2024 14:15-0500 Heart rate 89 /min Dr. Urbano Mir DO Work Phone: 1(258)167-913527 [place] [address] 08-15-2024 14:15-0500 Inhaled oxygen flow rate 2 L/min Dr. Urbano Foss Work Phone: 3(722)713-942327 [place] [address] 08-15-2024 14:15-0500 Respiratory rate 18 /min Dr. Urbano Foss Work Phone: 5(916)898-862273 [place] [address] 08-15-2024 14:15-0500 SaO2% (BldA) [Mass fraction] 96 % Dr. Urbano Foss Work Phone: 7(993)131-171627 [place] [address] 08-15-2024 14:15-0500 Systolic blood pressure 140 mm[Hg] Dr. Urbano Foss Work Phone: 6(877)671-336327 [place] [address] 08-14-2024 06:00-0500 Body mass index (BMI) [Ratio] 38 kg/m2 Dr. Urbano Foss Work Phone: 5(227)880-930973 [place] [address] 08-14-2024 06:00-0500 Body weight 79.[address] Urbano Foss Work Phone: 4(382)993-735873 [place] [address] 07-23-2024 02:58-0500 Body temperature 99 [degF] Dr. Urbano Foss Work Phone: 4(809)206-300273 [place] [address] 07-23-2024 02:58-0500 Diastolic blood pressure 57 mm[Hg] Dr. Urbano Foss Work Phone: 9(862)700-970127 [place] [address] 07-23-2024 02:58-0500 Heart rate 87 /min Dr. Urbano Foss Work Phone: 4(156)667-388373 [place] [address] 07-23-2024 02:58-0500 Respiratory rate 18 /min Dr. Urbano Foss Work Phone: 5(197)984-320527 [place] [address] 07-23-2024 02:58-0500 SaO2% (BldA) [Mass fraction] 95 % Dr. Urbano Foss Work Phone: 1(768)348-718873 [place] [address] 07-23-2024 02:58-0500 Systolic blood pressure 145 mm[Hg] Dr. Urbano Foss Work Phone: 3(694)574-648573 [place] [address] 07-22-2024 23:45-0500 Inhaled oxygen flow rate 2 L/min Dr. Urbano Foss Work Phone: 5(834)380-343073 [place] [address] 07-22-2024 23:43-0500 Body mass index (BMI) [Ratio] 34.3 kg/m2 Dr. Urbano Foss Work Phone: 7(042)426-785973 [place] [address] 07-22-2024 23:43-0500 Body weight 74.[address] Urbano Foss Work Phone: 9(920)925-284573 [place] [address] 07-20-2024 14:05-0500 Body temperature 97.9 [degF] Dr. Urbano Foss Work Phone: 0(570)808-429573 [place] [address] 07-20-2024 14:05-0500 Diastolic blood pressure 56 mm[Hg] Dr. Urbano Foss Work Phone: 7(977)150-731073 [place] [address] 07-20-2024 14:05-0500 Heart rate 58 /min Dr. Urbano Foss Work Phone: [facility] 07-20-2024 14:05-0500 Inhaled oxygen flow rate 2 L/min Dr. Urbano Foss Work Phone: 1(664)576-698373 [place] [address] 07-20-2024 14:05-0500 Respiratory rate 16 /min Dr. Urbano Foss Work Phone: 8(044)374-830673 [place] [address] 07-20-2024 14:05-0500 SaO2% (BldA) [Mass fraction] 96 % Dr. Urbano Foss Work Phone: 3(939)498-771973 [place] [address] 07-20-2024 14:05-0500 Systolic blood pressure 146 mm[Hg] Dr. Urbano Foss Work Phone: 2(343)948-468873 [place] [address] 07-20-2024 06:00-0500 Body mass index (BMI) [Ratio] 36.6 kg/m2 Dr. Urbano Foss Work Phone: 8(331)803-662973 [place] [address] 07-20-2024 06:00-0500 Body weight 79.[address] Urbano Foss Work Phone: 0(337)097-081973 [place] [address] 07-17-2024 23:50-0500 Inhaled oxygen concentration 21 % Dr. Urbano Foss Work Phone: [facility] 05-08-2024 16:08-0400 Blood Pressure Cuff Size SHAHRIAR BRAY MD [facility] 05-08-2024 16:08-0400 Blood Pressure Location SHAHRIAR BRAY MD [facility] 05-08-2024 16:08-0400 Blood Pressure Method SHAHRIAR BRAY MD [facility] 05-08-2024 16:08-0400 Body temperature 97.88 [degF] SHAHRIAR BRAY MD [facility] 05-08-2024 16:08-0400 Diastolic Blood Pressure Non-Invasive 67 mm[Hg] SHAHRIAR BRAY MD [facility] 05-08-2024 16:08-0400 Heart rate 68 /min SHAHRIAR BRAY MD [address] [place] [address] 05-08-2024 16:08-0400 Reason For Taking VItal Signs SHAHRIAR BRAY MD [address] [place] [address] 05-08-2024 16:08-0400 Respiratory rate 18 /min SHAHRIAR BRAY MD [address] [place] [address] 05-08-2024 16:08-0400 Systolic Blood Pressure Non-Invasive 137 mm[Hg] SHAHRIAR BRAY MD [address] [place] [address] 05-08-2024 06:42-0400 Body temperature 97.7 [degF] SHAHRIAR BRAY MD [address] [place] [address] 05-08-2024 06:42-0400 Diastolic Blood Pressure Non-Invasive 56 mm[Hg] SHAHRIAR BRAY MD [address] [place] [address] 05-08-2024 06:42-0400 Heart rate 71 /min SHAHRIAR BRAY MD [address] [place] [address] 05-08-2024 06:42-0400 Reason For Taking VItal Signs SHAHRIAR BRAY MD [address] [place] [address] 05-08-2024 06:42-0400 Respiratory rate 17 /min SHAHRIAR BRAY MD [address] [place] [address] 05-08-2024 06:42-0400 Systolic Blood Pressure Non-Invasive 140 mm[Hg] SHAHRIAR BRAY MD [address] [place] [address] 05-08-2024 00:04-0400 Body temperature 97.88 [degF] SHAHRIAR BRAY MD [address] [place] [address] 05-08-2024 00:04-0400 Diastolic Blood Pressure Non-Invasive 59 mm[Hg] SHAHRIAR BRAY MD [address] [place] [address] 05-08-2024 00:04-0400 Heart rate 67 /min SHAHRIAR BRAY MD [address] [place] [address] 05-08-2024 00:04-0400 Respiratory rate 18 /min SHAHRIAR BRAY MD [facility] 05-08-2024 00:04-0400 Systolic Blood Pressure Non-Invasive 123 mm[Hg] SHAHRIAR BRAY MD [facility] 05-07-2024 15:09-0400 Blood Pressure Cuff Size SHAHRIAR BRAY MD [address] [place] [address] 05-07-2024 15:09-0400 Blood Pressure Location SHAHRIAR BRAY MD [address] [place] [address] 05-07-2024 15:09-0400 Blood Pressure Method SHAHRIAR BRAY MD [address] [place] [address] 05-07-2024 13:50-0400 Blood Pressure Cuff Size SHAHRIAR BRAY MD [address] [place] [address] 05-07-2024 13:50-0400 Blood Pressure Location SHAHRIAR BRAY MD [address] [place] [address] 05-07-2024 13:50-0400 Blood Pressure Method SHAHRIAR BRAY MD [address] [place] [address] 05-07-2024 13:50-0400 Heart rate 89 /min SHAHRIAR BRAY MD [facility] 05-07-2024 07:29-0400 Heart rate 89 /min SHAHRIAR BRAY MD [facility] 05-07-2024 03:19-0400 Heart rate 82 /min SHAHRIAR BRAY MD [facility] 05-06-2024 22:50-0400 Heart rate 89 /min SHAHRIAR BRAY MD [facility] 02-27-2024 17:14-0400 Diastolic Blood Pressure Non-Invasive 62 mm[Hg] TARA BORJA MD [facility] 02-27-2024 17:14-0400 Heart rate 89 /min TARA BORJA MD [facility] 02-27-2024 17:14-0400 Respiratory rate 20 /min TARA BORJA MD [facility] 02-27-2024 17:14-0400 Systolic Blood Pressure Non-Invasive 148 mm[Hg] TARA BORJA MD [facility] 02-27-2024 14:46-0400 Diastolic Blood Pressure Non-Invasive 74 mm[Hg] TARA BORJA MD [facility] 02-27-2024 14:46-0400 Heart rate 88 /min TARA BORJA MD [facility] 02-27-2024 14:46-0400 Respiratory rate 20 /min TARA BORJA MD [facility] 02-27-2024 14:46-0400 Systolic Blood Pressure Non-Invasive 155 mm[Hg] TARA BORJA MD [facility] 02-27-2024 14:13-0400 Body temperature 97.34 [degF] TARA BORJA MD [facility] 02-27-2024 14:13-0400 Diastolic Blood Pressure Non-Invasive 73 mm[Hg] TARA BORJA MD [facility] 02-27-2024 14:13-0400 Heart rate 90 /min TARA BORJA MD [facility] 02-27-2024 14:13-0400 Respiratory rate 20 /min TARA BORJA MD [facility] 02-27-2024 14:13-0400 Systolic Blood Pressure Non-Invasive 143 mm[Hg] TARA BORJA MD [facility] 02-14-2024 11:59-0400 Diastolic Blood Pressure Non-Invasive 68 mm[Hg] BIN HODGSON MD [facility] 02-14-2024 11:59-0400 Heart rate 54 /min BIN HODGSON MD [facility] 02-14-2024 11:59-0400 Respiratory rate 18 /min BIN HODGSON MD [facility] 02-14-2024 11:59-0400 Systolic Blood Pressure Non-Invasive 136 mm[Hg] BIN HODGSON MD [facility] 02-14-2024 11:01-0400 Body temperature 97.88 [degF] BIN HODGSON MD [facility] 02-14-2024 11:01-0400 Diastolic Blood Pressure Non-Invasive 68 mm[Hg] BIN HODGSON MD [facility] 02-14-2024 11:01-0400 Heart rate 61 /min BIN HODGSON MD [facility] 02-14-2024 11:01-0400 Respiratory rate 18 /min BIN HODGSON MD [facility] 02-14-2024 11:01-0400 Systolic Blood Pressure Non-Invasive 144 mm[Hg] BIN HODGSON MD [facility] Encounters Encounter Date Encounter Type Care Provider Facility Start: 12-29-2024 [facility] Start: 11-10-2024 End: 11-10-2024 ambulatory [facility] Facility:[facility] Start: 11-10-2024 End: 11-12-2024 [facility] Start: 04-21-[address] Urbano Foss Work Phone: [facility] Work Phone: Start: 11-10-2024 Dr. Niall Olmstead DO -Progressive Care Unit Work Phone: Start: 09-18-2024 End: 09-18-2024 Dr. Abundio Tyson MD -Emergency Departmen t Work Phone: Start: 09-18-2024 End: 09-18-2024 Emergency department patient visit [facility] Facility:[facility] Start: 09-03-2024 ambulatory [facility] OLS Facil ity:[facility] Start: 09-03-2024 Dr. James Leach MD -[facility] Start: 09-02-2024 Dr. Suman Choi DO -[facility] Work Phone: Start: 09-01-2024 Dr. Suman Choi DO -[facility] Work Phone: Start: 08-31-2024 Dr. Niall Loco MD [facility] Work Phone: Start: 08-30-2024 ambulatory [facility] Facility: [facility] Start: 08-30-2024 End: 09-03-2024 Evaluation and management of inpatient [facility] Facility:[facility] Start: 08-30-2024 End: 09-03-2024 Dr. Suman Choi DO -Medical Surgical 3 Work Phone: Start: 08-30-2024 Dr. Niall Loco MD - [facility] Work Phone: Start: 08-29-2024 ambulatory [facility] Facility: [facility] Start: 08-29-2024 Dr. Betty Mike MD - [facility] Work Phone: Start: 08-28-2024 End: 08-28-2024 Dr. Violeta Rodríguez DO -Emergency Departme nt Work Phone: Start: 08-28-2024 End: 08-28-2024 Emergency department patient visit Violeta Rodríguez Facility:[facility] Start: 08-15-2024 Dr. Alba Jurado MD - [facility] Work Phone: Start: 08-14-2024 Dr. Alba Jurado MD - [facility] Work Phone: Start: 08-13-2024 Dr. Alba Jurado MD - [facility] Work Phone: Start: 08-12-2024 ambulatory Jennifer Jon Facility :[facility] Start: 08-12-2024 End: 08-15-2024 Evaluation and management of inpatient Jennifer Jon Facility:[facility] Start: 08-12-2024 End: 08-15-2024 Dr. Alba Jurado MD -Progressive Care Unit Work Phone: Start: 08-04-2024 End: 08-04-2024 ambulatory JAMES Lis LEACH DO Facility:[facility] Start: 08-04-2024 End: 08-04-2024 Patient encounter procedure JAMES E LEACH DO [facility] Start: 07-22-2024 End: 07-23-2024 Umair Cates DO -Emergency Departmen t Work Phone: Start: 07-22-2024 End: 07-23-2024 Emergency department patient visit [facility] Facility[facility] Start: 07-20-2024 Dr. Jennifer Jon MD - [facility] Work Phone: Start: 07-19-2024 Dr. Jennifer Jon MD - [facility] Work Phone: Start: 07-18-2024 ambulatory James Leach OLS Facil ity:[facility] Start: 07-18-2024 Dr. Rayray Oliveira MD -[facility] Start: 07-18-2024 Dr. Jennifer Jon MD - [facility] Work Phone: Start: 07-17-2024 ambulatory James Leach OLS Facil ity:[facility] Start: 07-17-2024 End: 07-20-2024 Evaluation and management of inpatient James Leach Facility:[facility] Start: 07-17-2024 End: 07-20-2024 Dr. Jennifer Jon MD -Medical Surgical 3 Work Phone: Start: 06-05-2024 ambulatory JAMES LEACH DO Faci [facility]ity[facility] Start: 05-06-2024 End: 05-10-2024 ambulatory JAMES LEACH DO [facility] Start: 05-06-2024 End: 05-10-2024 Outreach Lab JAMES LEACH DO [facility] Start: 05-06-2024 End: 05-08-2024 Emergency department patient visit JAMES LEACH DO Facility:[facility] Start: 05-06-2024 End: 05-08-2024 Observation SHAHRIAR BRAY MD [facility] Start: 05-01-2024 End: 05-01-2024 ambulatory JAMES LEACH DO [facility] Start: 05-01-2024 End: 05-01-2024 Patient encounter procedure JAMES LEACH DO [facility] Start: 04-29-2024 End: 05-03-2024 ambulatory JAMES LEACH DO [facility] Start: 04-29-2024 End: 05-03-2024 Encounter for general adult medical examination without abnormal findings JAMES LEACH DO Facility:[facility] Start: 04-29-2024 End: 05-03-2024 Outreach Lab JAMES Hays LEACH DO [facility] Start: 04-24-2024 End: 04-24-2024 ambulatory JAMES LEACH DO [facility] Start: 04-24-2024 End: 04-24-2024 Patient encounter procedure CHARLI DE LEON [facility]-COMMUNICATIONS TECH [facility] Start: 03-31-2024 End: 04-29-2024 ambulatory JAMES E LEACH DO [facility] Start: 03-31-2024 End: 04-29-2024 Physical therapy management JAMES LEACH DO [facility] Start: 03-26-2024 ambulatory JAMES LEACH DO Faci lity:[facility] Start: 03-01-2024 ambulatory JAMES E LEACH DO Faci lity:[facility] Start: 02-27-2024 End: 02-27-2024 Emergency department patient visit TARA BORJA MD [facility] Start: 02-27-2024 ambulatory JAMES LEACH DO Faci lity:[facility] Start: 02-14-2024 End: 02-14-2024 Emergency department patient visit BIN HODGSON MD [facility] Start: 02-06-2024 End: 02-06-2024 ambulatory JAMES LEACH DO [facility] Start: 02-06-2024 End: 02-06-2024 Patient encounter procedure JAMES LEACH DO [facility] Start: 02-04-2024 End: 02-04-2024 ambulatory JAMES LEACH DO [facility] Start: 02-04-2024 End: 02-04-2024 Patient encounter procedure JAMES LEACH DO [facility] Start: 01-09-2024 End: 01-09-2024 ambulatory JAMES LEACH DO [facility] Start: 01-09-2024 End: 01-09-2024 Patient encounter procedure JAMES LEACH DO [facility] Start: 01-09-2024 End: 01-09-2024 Well adult monitoring check done JAMES LEACH DO [facility] Start: 07-31-2023 End: 07-31-2023 ambulatory JAMES HAINS DO [facility] Start: 07-31-2023 End: 07-31-2023 Patient encounter procedure JAMES LEACH DO [facility] Start: 07-25-2023 End: 07-25-2023 ambulatory JAMES HAINS DO [facility] Start: 07-25-2023 End: 07-25-2023 Patient encounter procedure JAMES LEACH DO [facility] Start: 01-17-2023 End: 01-17-[address] JED VIDAL DO [facility] Start: 05-31-2022 End: 05-31-2022 Patient encounter procedure VICENTE HERNANDEZ [employer]-COMMUNICATIONS TECH [facility] Start: 03-02-2022 End: 03-02-2022 ambulatory [facility] Work Phone: Start: 03-02-2022 End: 03-02-2022 Discharged Recurring [facility]Speech Therapy Start: 03-01-2022 End: 03-01-2022 Patient encounter procedure JAMES LEACH DO [facility] Start: 01-06-2022 End: 01-06-2022 Discharged Recurring [facility] Start: 10-24-2021 Registered Recurring [facility] Start: 10-10-2021 End: 10-10-2021 Patient encounter procedure [facility]Radiology, [facility] Start: 09-22-2021 End: 09-22-2021 Patient encounter procedure MGEGAN CEBALLOS MD [facility] Start: 09-08-2021 End: 09-08-2021 Patient encounter procedure MEGGAN CEBALLOS MD [facility] Start: 07-27-2021 End: 07-27-2021 Patient encounter procedure MEGGAN CEBALLOS MD [facility] Start: 07-21-2021 End: 07-21-2021 Patient encounter procedure TRINIDAD HOUSTON [employer]-COMMUNICATIONS TECH [facility] Start: 06-20-2021 End: 06-20-2021 Patient encounter procedure MARCELA CRUZ MD [facility] Start: 05-25-2021 End: 05-25-2021 Patient encounter procedure MARCELA CRUZ MD [facility] Start: 01-18-2017 End: 01-19-2017 Ambulatory MARCELA CRUZ Facility[facility] Procedures Date Procedure Procedure Detail [...] Start: 11-10-2024 Referral to occupati onal therapist [facility] Start: 11-10-2024 Referral to service [facility] Start: 11-10-2024 Thyroid stimulating hormone measurement [facility] Start: 11-10-2024 Admission procedure [facility] Start: 11-10-2024 Hospital admission, emergency, from emergency room, medical nature [facility] Start: 11-10-2024 [facility] Start: 09-18-2024 [facility] Start: 09-18-2024 Consultation [facility] Start: 09-18-2024 [facility] Start: 09-02-2024 Patient discharge [facility] Start: 08-30-2024 Admission procedure [facility] Start: 08-30-2024 Oxygen therapy [facility] Start: 08-29-2024 Assessment of risk o f venous thromboembolism [facility] Start: 08-29-2024 Elevation of head of bed [facility] Start: 08-29-2024 Inhalation therapy procedure [facility] Start: 08-29-2024 Insertion of cathete r into peripheral vein [facility] Start: 08-29-[address] Patient [address] [facility] Start: 08-29-2024 Providing care accor ding to standard [facility] Start: 08-29-2024 Referral to occupati onal therapist [facility] Start: 08-29-2024 Referral to service [facility] Start: 08-29-2024 [facility] Start: 08-29-2024 End: 08-29-2024 Following clinical pathway protocol [facility] Start: 08-29-2024 Admission procedure [facility] Start: 08-29-2024 Consultation [facility] Start: 08-28-2024 [facility] Start: 08-28-2024 Emergency dept visit high severity&threat funcj [facility] Start: 08-28-2024 [facility] Start: 08-15-2024 Patient discharge [facility] Start: 08-15-2024 Referral to service [facility] Start: 08-14-2024 Care planning and pr oblem solving actions [facility] Start: 08-13-2024 Inhalation therapy procedure [facility] Start: 08-12-2024 End: 08-13-2024 [facility] Start: 08-12-2024 End: 08-12-2024 Following clinical pathway protocol [facility] Start: 08-12-2024 Assessment of risk o f venous thromboembolism [facility] Start: 08-12-2024 Fall prevention [facility] Start: 08-12-2024 Insertion of cathete r into peripheral vein [facility] Start: 08-12-2024 Introduction of urinary catheter [facility] Start: 08-12-2024 Measuring intake and output [facility] Start: 08-12-2024 Oxygen therapy [facility] Start: 08-12-2024 Providing care accor ding to [facility] Start: 08-12-2024 Provision of activity privileges [facility] Start: 08-12-2024 Referral to occupati onal therapist [facility] Start: 08-12-2024 Referral to service [facility] Start: 08-12-2024 Admission procedure [facility] Start: 08-12-2024 Hospital admission, emergency, from emergency room, medical nature [facility] Start: 08-12-2024 Patient referral to dietitian [facility] Start: 07-23-2024 [facility] Start: 07-20-2024 Patient discharge [facility] Start: 07-19-2024 Referral to service [facility] Start: 07-18-2024 Care planning and pr oblem solving actions [facility] Start: 07-17-2024 Application of inter mittent pneumatic compression device [facility] Start: 07-17-2024 Assessment of risk o f venous thromboembolism [facility] Start: 07-17-2024 Contact precautions [facility] Start: 07-17-2024 Continuous pulse oximetry [facility] Start: 07-17-2024 Incentive spirometry [facility] Start: 07-17-2024 Insertion of cathete r into peripheral vein [facility] Start: 07-17-2024 Measuring intake and output [facility] Start: 07-17-2024 Oxygen therapy [facility] Start: 07-17-2024 Providing care accor ding to standard [facility] Start: 07-17-2024 Provision of activity privileges [facility] Start: 07-17-2024 Referral to occupati onal therapist [facility] Start: 07-17-2024 Referral to service [facility] Start: 07-17-2024 Respiratory secretion precautions [facility] Start: 07-17-2024 [facility] Start: 07-17-2024 Following clinical p athway protocol [facility] Start: 07-17-2024 Dual pressure sponta neous ventilation support [facility] Start: 07-17-2024 Admission procedure [facility] Start: 07-17-2024 Patient referral to dietitian [facility] Amphetamines [Presen ce] in Urine by Screen method >1000 ng/mL [facility] Benzodiazepine measurement, urine [facility] Cocaine measurement, urine [facility] Ethanol [Mass/volume ] in Serum or Plasma [facility] fentaNYL [Presence] in Urine by Screen method [facility] Folate [Moles/volume ] in Serum or Plasma [facility] Methadone measurement, urine [facility] Patient Education [facility] Work Phone: Patient referral [facility] Work Phone: Phencyclidine [Presence] in Urine [facility] Urine cannabinoid measurement [facility] Urine opiate measurement [facility] Immunizations Immunization Date Immunization Notes Care Provider Fa cility 08-14-2024 influenza, high dose seasonal, preservative-free Dr. Urbano Mir DO Work Phone: [facility] 06-10-2024 influenza, high dose seasonal, preservative-free; Translations: [Fluad PF Prefilled Syringe ] JAMES LEACH DO [facility] 05-28-2023 Covid (Spikevax) Dr. Urbano Mir DO Work Phone: [facility] 05-28-2023 SARS-CoV-2 (COVID-19 ) mRNA-[id number] JAMES LEACH DO [facility] 05-21-2023 RSV Adult Recombinan t (Arexvy) Dr. Urbano Mir DO Work Phone: [facility] 05-21-2023 RSV vaccine preF3, recombinant JAMES LEACH DO [facility] 05-16-2023 influenza virus vacc ine, unspecified formulation JAMES LEACH DO [facility] 05-16-2023 influenza, injectabl e, quadrivalent, preservative free Dr. Urbano Mir DO Work Phone: [facility] 11-03-2022 Pneumococcal conjuga te PCV20, polysaccharide [id number] conjugate, adjuvant, PF; Translations: [Prevnar 20] DR JED VIDAL DO [facility] Comment on above: Result Comment: [facility] [id number] 06-09-2022 influenza, high dose seasonal, preservative-free DR JED VIDAL DO [facility] 06-09-2022 Pneumococcal conjuga te PCV20, polysaccharide [id number] conjugate, adjuvant, PF; Translations: [Prevnar 20] DR JED VIDAL DO [facility] 06-09-2022 influenza, injectabl e, quadrivalent, preservative free Dr. Urbano Mir DO Work Phone: [facility] 03-01-2022 COVID-19, mRNA, LNP- S, PF, 100 mcg or 50 mcg dose; Translations: [Moderna COVID-19 Vaccine] JAMES LEACH DO [facility] 08-24-2021 influenza, high dose seasonal, preservative-free; Translations: [Fluad Quadrivalent PF ] MEGGAN CEBALLOS MD [facility] 08-24-2021 COVID-19, mRNA, LNP- S, PF, 100 mcg or 50 mcg dose; Translations: [Moderna COVID-19 Vaccine] MEGGAN CEBALLOS MD [facility] 08-24-2021 influenza, injectabl e, quadrivalent, preservative free Dr. Urbano Mir DO Work Phone: [facility] 01-04-2021 SARS-CoV-2 (COVID-19 ) mRNA-[id number] vaccine MARCELA CRUZ MD [facility] 12-03-2020 SARS-CoV-2 (COVID-19 ) mRNA-2344 vaccine MARCELA CRUZ MD [facility] 04-15-2020 influenza, injectabl e, quadrivalent, preservative free; Translations: [Fluarix PF Quadrivalent ] MARCELA CRUZ MD [facility] 05-25-2019 tetanus toxoid, redu shane diphtheria toxoid, and acellular pertussis vaccine, adsorbed; Translations: [Boostrix (Tdap)] MARCELA CRUZ MD [facility] 04-02-2019 influenza, injectabl e, quadrivalent, preservative free; Translations: [Fluarix PF Quadrivalent ] MARCELA CRUZ MD [facility] 05-16-2018 influenza virus vacc ine, unspecified formulation MARCELA CRUZ MD [facility] 05-16-2018 influenza, injectabl e, quadrivalent, preservative free Dr. Urbano Mir DO Work Phone: [facility] 06-04-2017 influenza virus vacc ine, unspecified formulation MARCELA CRUZ MD [facility] 06-04-2017 influenza, injectabl e, quadrivalent, preservative free Dr. Urbano Mir DO Work Phone: [facility] 03-29-2016 influenza virus vacc ine, unspecified formulation MARCELA CRUZ MD [facility] 03-29-2016 influenza, seasonal, injectable, preservative free Dr. Urbano Mir DO Work Phone: [facility] 05-19-2015 influenza virus vacc ine, unspecified formulation MARCELA CRUZ MD [facility] 05-19-2015 influenza, seasonal, injectable, preservative free Dr. Urbano Mir DO Work Phone: [facility] 05-19-2015 pneumococcal conjuga te vaccine, 13 valent MARCELA CRUZ MD [facility] 04-02-2013 tetanus toxoid, redu shane diphtheria toxoid, and acellular pertussis vaccine, adsorbed MARCELA CRUZ MD [facility] 04-08-2012 influenza virus vacc ine, unspecified formulation MARCELA CRUZ MD [facility] 04-08-2012 influenza, seasonal, injectable, preservative free Dr. Urbano Mir DO Work Phone: [facility] Payers Date Payer Category Payer Self-pay [id number] 2023 Unknown [id number] 2023 Medicare [id number] 2011 Private Health Insurance [id number] 1941 Unknown [id number] 2.16.8 40.1.257075.3.579.2.627 1941 Unknown [id number] 2.16.8 40.1.405162.3.579.2.627 1941 Unknown [id number] 2.16.8 40.1.405253.3.579.2.627 1941 Unknown [id number] 2.16.8 40.1.906837.3.579.2.62 1941 Unknown [id number] 2.16.8 40.1.913106.3.579.2.627 1941 Unknown [id number] 2.16.8 40.1.483020.3.579.2.62 1941 Unknown [id number] 2.16.8 40.1.688497.3.579.2.62 1941 Unknown [id number] 2.16.8 40.1.605890.3.579.2. 1941 Unknown [id number] 2.16.8 40.1.220129.3.579.2. 1941 Unknown [id number] 2.16.8 40.1.704229.3.579.2. 1941 Unknown [id number] 2.16.8 40.1.516889.3.579.2. 1941 Unknown [id number] 2.16.8 40.1.961288.3.579.2. 1941 Unknown [id number] 2.16.8 40.1.027925.3.579.2. 1941 Unknown [id number] 2.16.8 40.1.361120.3.579.2. 1941 Unknown [id number] 2.16.8 40.1.673869.3.579.2.62 1941 Unknown [id number] 2.16.8 40.1.247912.3.579.2. 1941 Unknown [id number] 2.16.8 40.1.335356.3.579.2.627 1941 Unknown [id number] 2.16.8 40.1.746759.3.579.27 Unknown [id number] 2.16.8 40.1.825215.3.579.2.462 Unknown [id number] 2.16.8 40.1.856116.3.579.2.462 Unknown [id number] 2.16.8 40.1.072330.3.579.2.462 Unknown [id number] 2.16.8 40.1.915495.3.579.2.462 Unknown [id number] 2.16.8 40.1.757248.3.579.2.462 Unknown [id number] 2.16.8 40.1.129844.3.579.2.462 Unknown [id number] 2.16.8 40.1.816469.3.579.2.462 Unknown [id number] 2.16.8 40.1.296958.3.579.2.462 Unknown [id number] 2.16.8 40.1.883121.3.579.2.462 Unknown [id number] 2.16.8 40.1.905207.3.579.2.462 Unknown [id number] 2.16.8 40.1.376975.3.579.2.462 Unknown [id number] 2.16.8 40.1.256960.3.579.2.462 Unknown [id number] 2.16.8 40.1.661544.3.579.2.462 Unknown [id number] 2.16.8 40.1.734178.3.579.2.462 Unknown [id number] 2.16.8 40.1.754847.3.579.2.462 Unknown [id number] 2.16.8 40.1.246439.3.579.2.462 Unknown [id number] 2.16.8 40.1.274363.3.579.2.462 Unknown [id number] 2.16.8 40.1.161799.3.579.2.462 Unknown [id number] 2.16.8 40.1.669092.3.579.2.462 Unknown [id number] 2.16.8 40.1.719262.3.579.2.462 Unknown [id number] 2.16.8 40.1.203852.3.579.2.462 Unknown [id number] 2.16.8 40.1.176798.3.579.2.462 Unknown [id number] 2.16.8 40.1.010295.3.579.2.462 Unknown [id number] 2.16.8 40.1.131901.3.579.2.462 Unknown [id number] 2.16.8 40.1.106656.3.579.2.462 Unknown [id number] 2.16.8 40.1.802590.3.579.2.462 Unknown [id number] 2.16.8 40.1.183490.3.579.2.462 Unknown [id number] 2.16.8 40.1.634142.3.579.2.462 Social History Date Type Detail Facility Start: 04-02-2019 End: 11-10-2024 Never smoked tobacco (finding) [facility] Comment on above: no tobacco smoke exp osure Start: 1940 Sex Assigned At Female A [facility] Start: 09-26-2021 End: 10-24-2021 Tobacco smoking status CTIS Unknown if ever smoked [facility] Work Phone: Sexual Orientation [facility] Start: 01-15-2019 End: 11-10-2024 Sex Female (finding) [facility] Goals Date Patient Goal Desired Activity /State Functional Status Date Assessment Result Facility 09-02-2024 Functional status With Assist of 1 [facility] Work Phone: 09-02-2024 Functional status Ambulates;Bath room Privilege;Back to bed [facility] Work Phone: 08-15-2024 Functional status Stand and pivot [facility] Work Phone: 07-20-2024 Functional status Bathroom Privilege [facility] Work Phone: 05-08-2024 Functional Status Fall ID band o n, Bathroom light on, Non-Slip footwear, toileting offered, supervised while toileting, Room check performed, 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 05-08-[address] [facility] 05-08-2024 Functional Status [facility] and wellness [facility] 05-08-2024 Functional Status 7am-11am [facility] 05-08-[address] [facility] 05-08-[address] [facility] 05-08-[address] [facility] 05-07-2024 Functional Status Mod I [facility] 05-07-2024 Functional Status Hospital bed [facility] 02-27-2024 Functional Status Minimum assistance [facility] 02-27-2024 Functional Status Standard Safet y ID band on, Call device within reach, Bed in low position, Wheels locked [facility] 02-14-2024 Functional Status Independent [facility] 02-14-2024 Functional Status Standard Safet y ID band on, Allergy Band on, Call device within reach, Bed in low position, Wheels locked, Upper/Half-Length side-rails up, Bedside Cart Locked, Visitor at bedside, Safety level maintained [facility] Mental Status Date Assessment Result Facility 11-10-2024 Cognitive function Voice/Name [facility] Work Phone: 09-18-2024 Cognitive function Awake;Alert;Appropriat e [facility] Work Phone: 09-02-2024 Cognitive function Voice/Name [facility] Work Phone: 08-28-2024 Cognitive function Awake;Alert;A ppropriate;Follo ws Commands [facility] Work Phone: 08-15-2024 Cognitive function Voice/Name [facility] Work Phone: 07-20-2024 Cognitive function Voice/Name [facility] Work Phone: 05-08-2024 Mental Status Orientation Orie nted x 4, Forgetful [facility] 05-07-2024 Mental Status [facility] 02-27-2024 Mental Status Orientation Oriented x 4 [facility] 02-27-2024 Mental Status [facility] 02-14-2024 Mental Status Orientation Oriented x 4 [facility] 02-14-2024 Mental Status [facility] Clinical Notes 01-17-2023 to 11-12-2024 Note Date & Type Note Facility 11-12-2024 Note [facility] 11-10-2024 Radiology Diagnostic study note [facility] 09-02-2024 Note [facility] 08-15-2024 Note [facility] 07-20-2024 Note [facility] 07-18-2024 Evaluation note Diagnosis Onset Date Resolution [...] Chest pain inactive August 30, 2024 12:14pm [facility] Work Phone: 1(788) 924-877710-17-2024 Discharge summary Date of Service 05/08/2024 Discharge Diagnosis Dizziness ([id number] - PNED) Progressive dizziness/lightheadedness Progressive weakness Gait [...] weakness. She presented from home alone to [facility] on 05/06/2024 as recommended by her PCP [...] 72 hours. Follow Up Follow Up with [facility] will provide in house HHC for RN, PT/OT and aide service. Anurse will call you. Call them with any questions at [phone] When:Within 1-2 days Follow Up with JAMES LEACH DO When:Within 1-2 days Where:[address] [facility] [place] [address]- [phone] Follow Up Appointments No qualifying data available. [...] for further detail. Digitally Signed by TERESA CERDA on 05/08/2024 05:18 PM [facility] [id number] Hospital Discharge instructions Patient Education 05/08/2024 15:10:10 [...] Use night-lights. Place frequently used items in gayl-si-opvix places. Lower the shelves around your home [...] of the way. Do not use floor israeli or wax that makes floors slippery. If [...] include working with a physical therapist or staff trainer to improve your strength, balance, and endurance. Where to find more information Centers for Disease Control and Prevention, [place]: https://www.cdc.gov National [place] on Aging: https://mk8qvha.sena.nih.gov Contact a health care provider if: You [...] 06/29/2003 Document Revised: 06/21/2018 Document Reviewed: 02/21/2018 [employer] Patient Education 2020 [employer]. 05/08/2024 15:09:48 Confusion Confusion Confusion is the [...] friend for help if needed. Medicines Take zynk-afl-oxxdvao and prescription medicines only as told by [...] day care, extended care programs, or a custodial facility. The person's health care provider may [...] 08/16/2005 Document Revised: 07/11/2018 Document Reviewed: 07/11/2018 [employer] Patient Education 2020 [employer]. 05/08/2024 15:09:40 Dizziness Dizziness Dizziness is [...] balance is fine. 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 Take cjqz-inf-lsfwoqs and prescription medicines only as told by [...] 01/02/2002 Document Revised: 07/12/2018 Document Reviewed: 08/11/2017 [employer] Patient Education 2020 [employer]. Follow Up Care 05/06/2024 15:50:13 With:[facility] will provide in house HHC for RN, PT/OT and aide service. A nurse will call you. Call them with any questions at [phone] Address:Unknown When:1-2 days With:JAMES LEACH DO Address: [address] [place] [address]- [phone] When:1-2 days [facility] 10-17-2024 Note Discharge Instructions Thank you for allowing [facility] to assist you with your healthcare needs. The following is importantdischarge information regarding your hospital visit. Your Care Team JAMES LEACH DO What to do next Instructions From Your Doctor Continue to follow along with your neurologist and PCP Would recommend stopping scopolamine patch Follow Up Appointments Follow Up with [facility] will provide in house HHC for RN, PT/OT and aide service. Anurse will call you. Call them with any questions at [phone] When:Within 1-2 days Follow Up with JAMES LEACH DO When:Within 1-2 days Where:[address] [facility] [place] [address]- [phone] The Following Activity and Diet Have Been [...] Use night-lights. Place frequently used items in xomc-ia-clozk places. Lower the shelves around your home [...] of the way. Do not use floor israeli or wax that makes floors slippery. If [...] include working with a physical therapist or staff trainer to improve your strength, balance, and endurance. Where to find more information Centers for Disease Control and Prevention, [place]: https://www.cdc.gov National [place] on Aging: https://rb9bjew.sena.nih.gov Contact a health care provider if: You [...] 06/29/2003 Document Revised: 06/21/2018 Document Reviewed: 02/21/2018 [employer] Patient Education 2020 [employer]. Confusion Confusion is the inability to [...] friend for help if needed. Medicines Take gwwz-num-etopxen and prescription medicines only as told by [...] day care, extended care programs, or a custodial facility. The person's health care provider may [...] 08/16/2005 Document Revised: 07/11/2018 Document Reviewed: 07/11/2018 [employer] Patient Education 2020 [employer]. Dizziness Dizziness is a common problem. It [...] balance is fine. 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 Take gakk-scq-tgcsqgn and prescription medicines only as told by [...] 01/02/2002 Document Revised: 07/12/2018 Document Reviewed: 08/11/2017 [employer] Patient Education 2020 [employer]. Additional Information VACCINATE! IT SAVES LIVES! Members of the community who have not yet received the COVID-19 vaccine and would like to receive it can visit one of [facility] vaccine clinics. There are many vaccine clinic locations within the [facility]. For locations and available times, please visit https://gettheshot.coronavirus.[place].gov/. It is important to note that some COVID mobile vaccine clinics are held outdoors and may be canceled in rainy or stormy conditions. To learn more about pediatric vaccinations (ages 5-11), we invite you to visit the [facility] webpage. https://www.akronHooptaps.org/pages/0936-Odayb-Azfbiqmzjhj-Kdiurshuuj-Bsinl-Shl stions.htmlTo learn more about the COVID-19 vaccine, we invite you to visit the CDC website for a list of frequently asked questions.https://www.cdc.gov/coronavirus/2019-ncov/vaccines/faq.html [employer] Patient Portal Access Instructions: Stay connected with your healthcare team and access your personal medical information anytime with the [employer] Patient Portal. Please follow the directions below to create your [employer] account: 1.Access the email account you provided upon registration to the hospital/physician office.2.Look for an invitation email from [facility].3.Open the email and access the invitation link: AcceptInvitation to [employer]4.Fill in the required sommer to create your account. To access your account, visit [email or web address]. Click the blue button labeled Access Patient [...] who you will allowto register on the [employer] Patient Portal for access to your information. You can also access the [employer] Patient Portal on the [employer] Anywhere partha. Simply click on Patient Portal and then log into your account. If you would like to receive a full copy of your medical records, please contact the [facility] Medical Records Department by calling [phone], Sunday through Sunday between 8 a.m. and [...] Call your local pharmacy or go to http://RevTrax.c-LEcta/2I0Xy5k to find one close to you.3.Make use of household items: Use cat litter or old coffee grounds to dispose medications if other options arenot available. Mix your drugs with these household products, seal them in an airtight container andthrow it into the garbage. Call [facility]: [phone] to be sure your drugs can be [...] aware that I should contact my doctor. Patient/Accounts Payable Analyst Signature: Date/Time: Relationship to Patient: Witness Name/Signature: Date/Time: [facility] [id number] Note Discharge Instructions Thank you for allowing [facility] to assist you with your healthcare needs. The following is importantdischarge information regarding your hospital visit. Your Care Team JAMES LEACH DO What to do next Instructions From Your Doctor Continue to follow along with your neurologist and PCP Would recommend stopping scopolamine patch Follow Up Appointments Follow Up with [facility] will provide in house HHC for RN, PT/OT and aide service. Anurse will call you. Call them with any questions at [phone] When:Within 1-2 days Follow Up with JAMES LEACH DO When:Within 1-2 days Where:[address] [place] [address] [phone] The Following Activity and Diet Have Been [...] Use night-lights. Place frequently used items in gpzl-sc-owadp places. Lower the shelves around your home [...] of the way. Do not use floor israeli or wax that makes floors slippery. If [...] include working with a physical therapist or staff trainer to improve your strength, balance, and endurance. Where to find more information Centers for Disease Control and PreventionDEVONTE: https://www.cdc.gov National [place] on Aging: https://cb2lxkb.sena.nih.gov Contact a health care provider if: You [...] 06/29/2003 Document Revised: 06/21/2018 Document Reviewed: 02/21/2018 [employer] Patient Education 2020 [employer]. Confusion Confusion is the inability to [...] friend for help if needed. Medicines Take ksaf-qri-qfxnamd and prescription medicines only as told by [...] day care, extended care programs, or a custodial facility. The person's health care provider may [...] 08/16/2005 Document Revised: 07/11/2018 Document Reviewed: 07/11/2018 [employer] Patient Education 2020 [employer]. Dizziness Dizziness is a common problem. [...] balance is fine. 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 Take avvl-vyq-fstbjyg and prescription medicines only as told by [...] 01/02/2002 Document Revised: 07/12/2018 Document Reviewed: 08/11/2017 [employer] Patient Education 2020 [employer]. Additional Information VACCINATE! IT SAVES LIVES! Members of the community who have not yet received the COVID-19 vaccine and would like to receive it can visit one of [facility] vaccine clinics. There are many vaccine clinic locations within the [facility]. For locations and available times, please visit https://gettheshot.coronavirus.[place].gov/. It is important to note that some COVID mobile vaccine clinics are held outdoors and may be canceled in rainy or stormy conditions. To learn more about pediatric vaccinations (ages 5-11), we invite you to visit the [facility] webpage. https://www.[facility].org/pages/8813-Nfgrr-Izvsyjuqtru-Pelnjfxeqe-Ckdgt-Xne stions.htmlTo learn more about the COVID-19 vaccine, we invite you to visit the CDC website for a list of frequently asked questions.https://www.cdc.gov/coronavirus/2019-ncov/vaccines/faq.html [facility] [employer] Patient Portal Access Instructions: Stay connected with your healthcare team and access your personal medical information anytime with the [employer] Patient Portal. Please follow the directions below to create your [employer] account: 1.Access the email account you provided upon registration to the hospital/physician office.2.Look for an invitation email from [facility].3.Open the email and access the invitation link: AcceptInvitation to [employer]4.Fill in the required sommer to create your account. To access your account, visit [email or web address] [email or web address]. Click the blue button labeled Access Patient Portal and then log in with the username and password that you created in the steps above. You will be able to view your test results, lab results, a summary of your visits, upcoming appointments and more. There is also a convenient messaging option where you can send secure messages to your Delver Ltdvider. In addition, you will have the ability to download any documents or summaries to your computer and/or send the information securely to a physician. Remember that your healthcare information is confidential, so carefully consider who you will allowto register on the [employer] Patient Portal for access to your information. You can also access the [employer] Patient Portal on the [employer] partha. Simply click on Patient Portal and then log into your account. If you would like to receive a full copy of your medical records, please contact the [facility] Medical Records Department by calling [phone], Sunday through Sunday between 8 a.m. and [...] Call your local pharmacy or go to http://bit.c-LEcta/4V9Hu1t to find one close to you.3.Make use of household items: Use cat litter or old coffee grounds to dispose medications if other options arenot available. Mix your drugs with these household products, seal them in an airtight container andthrow it into the garbage. Call [facility]: [phone] to be sure your drugs can be [...] aware that I should contact my doctor. Patient/Accounts Payable Analyst Signature: Date/Time: Relationship to Patient: Witness Name/Signature: Date/Time: [facility] [id number] Note. MICRO - Microbiology PROCEDURE: Urine Culture [...] Locations *1: This test was performed at: [facility], [address] [place] [address], [facility] , [facility]10-16-2024 History and physical note Date of Service [...] assisted living facility. Will defer to social media content manager for assistance. Hypertension, stable Hyperlipidemia, continue statin [...] List/Past Medical History Ongoing Asthma CAD in [place] artery Change in mental status Degenerative polyarthritis [...] nocturnal O2 Peptic reflux disease Power of deputy commonwealth's attorney for health care on file, Jorge Quintero Jr. [phone] S/P cardiac catheterization, 05/31/2009 Severe persistent asthma [...] Never., 04/02/2019 Employment/School Status: Retired. Worked at [employer], now on disability Description:., 04/03/2019 Exercise Home/Environment Primary Hoop Bender Tank: self, lives alone. She was never .., 06/07/2021 Living situation: Home/Independent. Primary Hoop Bender Tank: Lives alone, her gnkfkc-ct-ept Asha Quintero, lives [address] and [...] Relationship: Maternal Grandmother, Age: 62 Years, Cause: CA Relationship: Paternal Grandmother, Age: 40 Years, Cause: Peritionitis Relationship: Paternal Grandfather, Age: 70 Years, Cause: [place] Relationship: Maternal Grandfather, Age: 70 Years, Cause: [...] by ZAHIRA RUSSELL on 05/07/2024 04:28 PM [facility] [id number] History and physical note Date of Service [...] assisted living facility. Will defer to social media content manager for assistance. Hypertension, stable Hyperlipidemia, continue statin [...] List/Past Medical History Ongoing Asthma CAD in [place] artery Change in mental status Degenerative polyarthritis [...] nocturnal O2 Peptic reflux disease Power of deputy commonwealth's attorney for health care on file, Jorge Quintero Jr. [phone] S/P cardiac catheterization, 05/31/2009 Severe persistent asthma [...] Never., 04/02/2019 Employment/School Status: Retired. Worked at [employer], now on disability Description:., 04/03/2019 Exercise Home/Environment Primary Hoop Bender Tank: self, lives alone. She was never .., 06/07/2021 Living situation: Home/Independent. Primary Hoop Bender Tank: Lives alone, her saqemi-nc-ywh Asha Quintero, lives [address] away and [...] Relationship: Maternal Grandmother, Age: 62 Years, Cause: CA Relationship: Paternal Grandmother, Age: 40 Years, Cause: Peritionitis Relationship: Paternal Grandfather, Age: 70 Years, Cause: [place] Relationship: Maternal Grandfather, Age: 70 Years, Cause: [...] by ZAHIRA RUSSELL on 05/07/2024 04:28 PM [facility] [id number] Evaluation + Plan noteExtracted from: Title:History and [...] assisted living facility. Will defer to social media content manager for assistance. Hypertension, stable Hyperlipidemia, continue statin [...] 07, 2024 17:45:08 EDT Collaborative Care Team [facility] Medicine This is a shared/split visit Patient was seen and examined during hospitalization Labs imaging and documentation were reviewed Care discussed during a.m. rounds treatment plan was developed independently and implemented with BLOCKMASON assistance Agree with assessment and plan 83-year-old with past medical history as noted above significant for dementia, chronic vertigo for which patient follows up with neurology/vestibular therapy who presents with weakness and progressive decline. Labs were reviewed. CBC appears concerning for hemoconcentration. Metabolic panel is without significant derangement. Ioltn-ce-pigg UA is negative. MRI obtained on 05/01 [...] Radiology* XR Knee 3 Views Left 04/24/24 [facility] 10-15-2024 Note ORIGINAL EXAMINATION: CT OF THE HEAD WITHOUT BWIKSALY28/15/2024 8:[address] HEAD/BRAIN WITHOUT CONTRAST EXAM [...] Date: 05/06/2024 9:05:39 PM Ordering Provider: DAI [facility]10-15-2024 Note ORIGINAL EXAMINATION: ONE XRAY VIEW [...] Date: 05/06/2024 10:25:19 PM Ordering Provider: TARA [facility]10-15-2024 NoteSINUS ARRHYTHMIA LAD, CONSIDER LEFT ANTERIOR FASCICULAR BLOCK ST ELEVATION, CONSIDER INFERIOR INJURY This EKG was read and contributed directly to the care of the patient Electronic Signature: KENZIE HERNANDEZ MD 05/06/2024 18:08:[address] [place] [address] 08-07-2024 Hospital Discharge instructions Patient Education 02/27/2024 16:40:11 Dizziness, Uncertain Cause Dizziness (Uncertain Cause) Dizziness is a common symptom. It may be described as lightheadedness, spinning, or feeling like you are going to faint. Dizziness can have many causes. Be sure to tell the healthcare provider about: All medicines you take, including prescription, chzw-aci-tojwuvp, herbs, and supplements Any other symptoms you [...] Chest, arm, neck, back, or jaw pain [id number] [employer] [place] [address], [place] [address]. All rights reserved. This information is not intended as a substitute for professional medical care. Always follow yourhealthcare professional's instructions. Follow Up Care 02/27/2024 14:06:24 With:JAMES LEACH DO Address: [address] [place] [address] Physicians [place], [place] [id number] [phone] When:2-4 days [facility] 08-07-2024 Note Discharge Instructions Thank you for allowing [facility] to assist you with your healthcare needs. The following is importantdischarge information regarding your hospital visit. What to Do Next Instructions from Your Care Team No qualifying data available. Post Acute Orders No qualifying data available. You Need to Schedule the Following Appointments Follow Up with JAMES LEACH DO When:Within 2-4 days Where:[address] [facility] [place] [phone] Allergies Ceclor hives Naprosyn hives Norflex hives [...] about: All medicines you take, including prescription, yoid-bpz-pcjcjim, herbs, and supplements Any other symptoms you [...] Chest, arm, neck, back, or jaw pain [phone] [employer]. [address] [place] [address]. All rights reserved. This information is not intended as a substitute for professional medical care. Always follow yourhealthcare professional's instructions. Additional Information VACCINATE! IT SAVES LIVES! Members of the community who have not yet received the COVID-19 vaccine and would like to receive it can visit one of [facility] vaccine clinics. There are many vaccine clinic locations within the [facility]. For locations and available times, please visit www.gettheshot.coronavirus.[place].gov/. It is important to note that some COVID mobile vaccine clinics are held outdoors and may be canceled in rainy or stormy conditions. To learn more about pediatric vaccinations (ages 5-11), we invite you to visit the [facility] webpage. https://www.[facility].org/pages/1706-Cjkfd-Ujehfdyyspu-Jxpjgqwxmf-Vmhwd-Fwm stions.htmlTo learn more about the COVID-19 vaccine, we invite you to visit the CDC website for a list of frequently asked questions. https://www.cdc.gov/coronavirus/2019-ncov/vaccines/faq.html [employer] Patient Portal Access Instructions: Stay connected with your healthcare team and access your personal medical information anytime with the [employer] Patient Portal. If you would like a full copy of your medical records please contact the [facility] Medical Records Department Sunday through Sunday between 8a.m. and 4:30p.m. Please follow the directions below to access the portal: 1.Access the email account you provided upon registration to the hospital.2.Look for an invitation email from [facility].3.Open the email and access the invitation link: Accept Invitation to [employer] [employer]4.Fill in the required sommer to create your account. Sign into [email or web address] with your username and password that you [...] you will allow to register on the [employer] Patient Portal for access to your information. You can also access the [employer] Patient Portal on the [employer] partha. Simply click on Health Records under [employer] and then click on the [employer] logo. HOW TO SAFELY DISPOSE OF PRESCRIPTION [...] Call your local pharmacy or go to http://RevTrax.c-LEcta/8U1Jc9z to find one close to you.3.Make use of household items: Use cat litter or old coffee grounds to dispose medications if other options arenot available. Mix your drugs with these household products, seal them in an airtight container andthrow it into the garbage. Call [facility]: [phone] to be sure your drugs can be [...] aware that I should contact my doctor. Patient/Accounts Payable Analyst Signature: Date/Time: Relationship to Patient: Witness Name/Signature: Date/Time: [facility]08-07-2024 Note ORIGINAL HISTORY: Dizziness COMPARISON: 25 May [...] Fabian Del Rio MD Preliminary Report By: aFbian Del Rio MD Electronically signed By Fabian Del Rio MD Dictated Date: 02/27/2024 3:58:03 PM Prelim Date: 02/27/2024 3:59:00 PM Sign Date: 02/27/2024 3:59:00 PM [facility]ing [facility] Note Sinus rhythm Abnormal R-wave progression, late transition Left ventricular hypertrophy Electronic Signature: TARA BORJA MD 02/27/2024 16:14:57[facility] 07-25-2024 Hospital Discharge instructions Patient Education 02/14/2024 11:50:32 Dizziness, Uncertain Cause Dizziness (Uncertain Cause) Dizziness is a common symptom. It may be described as lightheadedness, spinning, or feeling like you are going to faint. Dizziness can have many causes. Be sure to tell the healthcare provider about: All medicines you take, including prescription, rnxj-pvb-kmpuond, herbs, and supplements Any other symptoms you [...] Chest, arm, neck, back, or jaw pain [phone] [employer]. [address] [place] [address], [place] [address]. All rights reserved. This information is not intended as a substitute for professional medical care. Always follow yourhealthcare professional's instructions. Follow Up Care 02/14/2024 10:42:20 With:JAMES LEACH DO Address: [address] [place] [phone] [phone] When:2-4 days [facility] 07-25-2024 Emergency department Discharge summary Discharge Instructions Thank you for allowing [facility] to assist you with your healthcare needs. The following is importantdischarge information regarding your hospital visit. Diagnosis from Today's Visit Dizziness What to Do Next Instructions from Your Care Team No qualifying data available. Post Acute Orders No qualifying data available. You Need to Schedule the Following Appointments Follow Up with JAMES LEACH DO When:Within 2-4 days Where:[address] [place] [id number] [phone] Allergies Ceclor hives Naprosyn hives Norflex hives [...] about: All medicines you take, including prescription, gxnb-grq-peravol, herbs, and supplements Any other symptoms you [...] Chest, arm, neck, back, or jaw pain [phone] [employer]. [address] [place] [address]. All rights reserved. This information is not intended as a substitute for professional medical care. Always follow yourhealthcare professional's instructions. Additional Information VACCINATE! IT SAVES LIVES! Members of the community who have not yet received the COVID-19 vaccine and would like to receive it can visit one of [facility] vaccine clinics. There are many vaccine clinic locations within the [facility]. For locations and available times, please visit www.gettheshot.coronavirus.[place].gov/. It is important to note that some COVID mobile vaccine clinics are held outdoors and may be canceled in rainy or stormy conditions. To learn more about pediatric vaccinations (ages 5-11), we invite you to visit the [facility] webpage. https://www.[facility].org/pages/5357-Aptkz-Sgfpapggisp-Zuywyypslo-Wyrty-Wvu stions.htmlTo learn more about the COVID-19 vaccine, we invite you to visit the CDC website for a list of frequently asked questions. https://www.cdc.gov/coronavirus/2019-ncov/vaccines/faq.html [facility] Patient Portal Access Instructions: Stay connected with your healthcare team and access your personal medical information anytime with the [employer] Patient Portal. If you would like a full copy of your medical records please contact the [facility] Medical Records Department Sunday through Sunday between 8a.m. and 4:30p.m. Please follow the directions below to access the portal: 1.Access the email account you provided upon registration to the [facility].2.Look for an invitation email from [facility].3.Open the email and access the invitation link: Accept Invitation to [employer]4.Fill in the required sommer to create your account. Sign into [email or web address] with your username and password that you [...] you will allow to register on the [employer] Patient Portal for access to your information. You can also access the [facility] [employer] Patient Portal on the [employer]. Simply click on Health Records under [employer] and then click on the [employer] logo. HOW TO SAFELY DISPOSE OF PRESCRIPTION [...] Call your local pharmacy or go to http://RevTrax.c-LEcta/8F5Ce0z to find one close to you.3.Make use of household items: Use cat litter or old coffee grounds to dispose medications if other options arenot available. Mix your drugs with these household products, seal them in an airtight container andthrow it into the garbage. Call [facility]: [phone] to be sure your drugs can be [...] aware that I should contact my doctor. Patient/Accounts Payable Analyst Signature: Date/Time: Relationship to Patient: Witness Name/Signature: Date/Time: [facility]07-17-2024 Note ORIGINAL EXAMINATION: MRI OF THE BRAIN [...] Sign Date: 02/06/2024 4:06:44 PM Ordering Provider: [facility]07-17-2024 Note ORIGINAL HISTORY: Neck trauma COMPARISON: 06 [...] Sign Date: 02/06/2024 3:30:54 PM Ordering Provider: [facility]01-09-2024 Note ORIGINAL EXAMINATION: BONE DENSITOMETRY 07/31/2023 1:30 [...] Sign Date: 07/31/2023 2:17:04 PM Ordering Provider: [facility]06-28-2023 Note ORIGINAL EXAMINATION: TWO XRAY VIEWS [...] 01/17/2023 4:13:56 PM Ordering Provider: JED VIDAL [facility]06-28-2023 Note ORIGINAL EXAMINATION: TWO XRAY VIEWS OF [...] Sign Date: 01/17/2023 4:13:56 PM [facility]ments Appointment Date:06/13/2021 01:30:00 PM Scheduled Provider:TRINIDAD HOUSTON Location:[facility] Appointment Type:CV OV Appointment Date:08/24/2021 02:00:00 PM Scheduled Provider:MARCELA CRUZ MD Location:[facility] Appointment Type:[facility] Future Scheduled Tests Laboratory* Complete Blood Count 06/10/20 * Lipid Profile 06/10/20 * Complete Metabolic Panel 06/10/20 [facility] Evaluation + Plan note Future Appointments Appointment Date:08/24/2021 02:00:00 PM Scheduled Provider:MARCELA CRUZ MD Location:[facility] Appointment Type: OV [facility] Evaluation + Plan note Future Appointments Appointment Date:11/30/2021 01:15:00 PM Scheduled Provider:MARCELA CRUZ MD Location:[facility] Appointment Type: OV [facility] Evaluation + Plan note Future Appointments Appointment Date:06/09/2022 02:00:00 PM Scheduled Provider:JAMES LEACH DO Location:[facility] Appointment Type: Wellness Medicare Diagnostic Tests Pending * Vitamin D Level 03/01/22 Future Scheduled Tests Laboratory* Thyroid Stimulating Hormone 12/01/21 * Complete Blood Count 12/01/21 * Lipid Profile 12/01/21 * Complete Metabolic Panel 12/01/21 [facility] evaluation + Plan note Future Appointments Appointment Date:06/09/2022 02:00:00 PM Scheduled Provider:JAMES LEACH DO Location:[facility] Appointment Type: Wellness Medicare Future Scheduled Tests Laboratory* Thyroid Stimulating Hormone 12/01/21 * Complete Blood Count 12/01/21 * Lipid Profile 12/01/21 * Complete Metabolic Panel 12/01/21 [facility] evaluation + Plan note Future Appointments Appointment Date:01/26/2023 03:30:00 PM Scheduled Provider:JAMES LEACH DO Location:[facility] Appointment Type: OV Future Scheduled Tests Laboratory* Basic Metabolic Panel 02/03/23 * Lipid Profile 01/24/23 * Albumin/Creatinine Ratio, Random Urine 12/15/22 [facility] evaluation + Plan note Future Appointments Appointment Date:07/31/2023 01:00:00 PM Scheduled Provider: Location:[facility] Appointment Type:BD Bone Density DEXA Axial Skeleton Appointment Date:01/04/2024 09:00:00 AM Scheduled Provider: Location:[facility] Appointment Type: Nurse Lab Appointment Date:01/11/2024 01:30:00 PM Scheduled Provider:JAMES LEACH DO Location:[facility] Appointment Type: OV Future Scheduled Tests Laboratory* [...] BD Bone Density DEXA Axial Skeleton 07/31/23 [facility] evaluation + Plan note Future Appointments Appointment Date:01/04/2024 09:00:00 AM Scheduled Provider: Location:[facility] NULL Appointment Type:PC Nurse Lab Appointment Date:01/11/2024 01:30:00 PM Scheduled Provider:JAMES LEACH DO Location:[facility] NULL Appointment Type:PC OV Future Scheduled Tests Laboratory* Magnesium Level 01/10/24 * Thyroid Stimulating Hormone 01/10/24 * Free T4 01/10/24 * Vitamin B12 Level 01/10/24 * A1C Hemoglobin 01/10/24 * Complete Blood Count 01/10/24 * Lipid Profile 01/10/24 * Albumin/Creatinine Ratio, Random Urine 07/20/23 * Albumin/Creatinine Ratio, Random Urine 01/10/24 * Vitamin D Level 01/10/24 * Complete Metabolic Panel 01/10/24 [facility] Bimicialuation + Plan note Future Appointments Appointment Date:01/11/2024 01:30:00 PM Scheduled Provider:JAMES LEACH DO Location:[facility] Appointment Type:PC OV Appointment Date:02/06/2024 11:45:00 AM Scheduled Provider: Location:[facility] Appointment Type:CV OV Future Scheduled Tests Laboratory* Albumin/Creatinine Ratio, Random Urine 07/20/23 [facility] Evaluation + Plan note Future Appointments Appointment Date:02/06/2024 11:45:00 AM Scheduled Provider: Location:[facility] NULL Appointment Type:CV OV Appointment Date:02/06/2024 01:15:00 PM Scheduled Provider: Location:[facility] Appointment Type:MRI Spine Cervical w/o Contrast Appointment Date:02/06/2024 02:00:00 PM Scheduled Provider: Location:[facility] Appointment Type:MRI Brain w/ + w/o Contrast Appointment Date:02/12/2024 10:15:00 AM Scheduled Provider:JAMES LEACH DO Location:[facility] Appointment Type:PC OV Appointment Date:04/29/2024 11:00:00 AM Scheduled Provider: Location:[facility] Appointment Type:PC Nurse Lab Appointment Date:05/06/2024 12:30:00 PM Scheduled Provider:JAMES LEACH DO Location:[facility] NULL Appointment Type:PC OV Future Scheduled Tests Laboratory* Lipid Profile 01/11/24 * Albumin/Creatinine Ratio, Random Urine 07/20/23 Radiology* MRI Brain w/ + w/o Contrast 02/06/24 * MRI Spine Cervical w/o Contrast 02/06/24 [facility] Bimicialuation + Plan note Future Appointments Appointment Date:02/12/2024 10:15:00 AM Scheduled Provider:JAMES LEACH DO Location:[facility] Appointment Type:PC OV Appointment Date:04/29/2024 11:00:00 AM Scheduled Provider: Location:[facility] Appointment Type:PC Nurse Lab Appointment Date:05/06/2024 12:30:00 PM Scheduled Provider:JAMES LEACH DO Location:[facility] Appointment Type:PC OV Future Scheduled Tests Laboratory* Lipid Profile 01/11/24 * Albumin/Creatinine Ratio, Random Urine 07/20/23 [facility] Evaluation + Plan note Future Appointments Appointment Date:03/04/2024 03:45:00 PM Scheduled Provider: Location:[facility] Appointment Type:CV OV Appointment Date:03/25/2024 11:30:00 AM Scheduled Provider:JAMES LEACH DO Location:[facility] NULL Appointment Type:PC OV Follow Up Appointment Date:04/29/2024 11:00:00 AM Scheduled Provider: Location:[facility] Appointment Type:PC Nurse Lab Appointment Date:05/06/2024 12:30:00 PM Scheduled Provider:JAMES LEACH DO Location:[facility] Appointment Type:PC OV Future Scheduled Tests Laboratory* Lipid Profile 01/11/24 * Lipid Profile 02/12/24 * Albumin/Creatinine Ratio, Random Urine 07/20/23 * Complete Metabolic Panel 02/12/24 Radiology* MRI Brain w/ + w/o Contrast 02/12/24 [facility] evaluation + Plan note Future Appointments Appointment Date:03/04/2024 03:45:00 PM Scheduled Provider: Location:[facility] Appointment Type:CV OV Appointment Date:03/06/2024 08:45:00 AM Scheduled Provider: Location:[facility] Appointment Type:MRI Brain w/ + w/o Contrast Appointment Date:03/25/2024 11:30:00 AM Scheduled Provider:JAMES LEACH DO Location:[facility] Appointment Type:PC OV Follow Up Appointment Date:04/29/2024 11:00:00 AM Scheduled Provider: Location:[facility] Appointment Type:PC Nurse Lab Appointment Date:05/06/2024 12:30:00 PM Scheduled Provider:JAMES LEACH DO Location:[facility] Appointment Type:PC OV Future Scheduled Tests Laboratory* Lipid Profile 01/11/24 * Lipid Profile 02/12/24 * Albumin/Creatinine Ratio, Random Urine 07/20/23 * Complete Metabolic Panel 02/12/24 Radiology* MRI Brain w/ + w/o Contrast 03/06/24 [facility] Evaluation + Plan note Future Appointments Appointment Date:04/28/2024 01:30:00 PM Scheduled Provider: Location:[facility] Appointment Type:[facility] Appointment Date:04/29/2024 11:00:00 AM Scheduled Provider: Location:[facility] Appointment Type:PC Nurse Lab Appointment Date:05/01/2024 11:45:00 AM Scheduled Provider: Location:[facility] Appointment Type:MRI Brain w/ + w/o Contrast Appointment Date:05/06/2024 12:30:00 PM Scheduled Provider:JAMES LEACH DO Location:[facility] Appointment Type:PC OV Future Scheduled Tests Laboratory* Lipid Profile 01/11/24 * Lipid Profile 02/12/24 * Albumin/Creatinine Ratio, Random Urine 07/20/23 * Complete Metabolic Panel 02/12/24 Radiology* MRI Brain w/ + w/o Contrast 05/01/24 * XR Knee 3 Views Left 04/24/24 [facility] Evaluation + Plan note Future Appointments Appointment Date:05/01/2024 11:45:00 AM Scheduled Provider: Location:[facility] Appointment Type:MRI Brain w/ + w/o Contrast Appointment Date:05/06/2024 12:30:00 PM Scheduled Provider:JAMES LEACH DO Location:[facility] Appointment Type:PC OV Future Scheduled Tests Laboratory* Lipid Profile 01/11/24 * Albumin/Creatinine Ratio, Random Urine 07/20/23 Radiology* MRI Brain w/ + w/o Contrast 05/01/24 * XR Knee 3 Views Left 04/24/24 [facility] Evaluation + Plan note Future Appointments Appointment Date:05/06/2024 12:30:00 PM Scheduled Provider:JAMES LEACH DO Location:[facility] Appointment Type:PC OV Future Scheduled Tests Laboratory* Lipid Profile 01/11/24 * Albumin/Creatinine Ratio, Random Urine 07/20/23 Radiology* XR Knee 3 Views Left 04/24/24 [facility] Evaluation + Plan note Future Appointments Appointment Date:05/14/2024 02:30:00 PM Scheduled Provider:SHAUNA LOOMIS Location:[facility] Appointment Type: OV Hospital Follow-Up Future Scheduled Tests Laboratory* Lipid Profile 01/11/24 Radiology* XR Knee 3 Views Left 04/24/24 [facility] Evaluation + Plan note Future Appointments Appointment Date:09/09/2024 01:30:00 PM Scheduled Provider:JAMES LEACH DO Location:[facility] Appointment Type: OV Future Scheduled Tests Radiology* XR Knee 3 Views Left 04/24/24 [facility] Evaluation noteNo assessment information available [facility] Work Phone: Hospital course Narrative No data available for this section [facility] Hospital Discharge instructions No data available for this section [facility] Progress note No data available for this section [facility] Summary Purpose Family History No Family History [...] you have a Healthcare Pow er of Stair Builder? Yes July 18, 2024 12:14am Name of Medical Power of Stair Builder jorge deanlove oliveracarrie July 18, 2024 12:14am Living Will No August 13 12:15am Do you have a Healthcare Pow er of Stair Builder? No August 13, 2024 12:15am Living Will No August 28 11:40am Do you have a Healthcare Pow er of Stair Builder? No August 28, 2024 11:40am Living Will No August 29 7:59pm Do you have a Healthcare Pow er of Stair Builder? No August 29, 2024 7:59pm Living Will No July 23 12:39am Do you have a Healthcare Pow er of Stair Builder? No July 23, 2024 12:39am Living Will Yes September 18 10:55am Do you have a Healthcare Pow er of Stair Builder? Yes September 18, 2024 10:55am Name of Medical Power of Stair Builder nephcarrie September 18, 2024 10:55am Living Will Yes November 10, 2024 6:24pm Do you have a Healthcare Pow er of Stair Builder? Yes November 10, 2024 6:24pm Name of Medical Power of Stair Builder . November 10, 2024 6:24pm Chief Complaint [...] section and content) DATE CREATED AUTHOR 01/16/2018 [facility] DATE CREATED AUTHOR AUTHOR'S ORGANIZ ATION 08/28/2019 [facility] DATE CREATED AUTHOR AUTHOR'S ORGANIZ ATION 03/28/2024 [facility] ([place]) DATE CREATED AUTHOR AUTHOR'S ORGANIZ ATION 05/29/2024 [facility] DATE CREATED AUTHOR AUTHOR'S ORGANIZ ATION 08/15/2024 [facility] DATE CREATED AUTHOR AUTHOR'S ORGANIZ ATION 12/29/2024 [facility] y [facility] Goals (unrecognized section and content) Goals may be documented in a n alternate section Care Team (unrecognized sect ion and content) Care Team Personnel Name: JAMES LEACH DO Position: P4 Physician - Primary Care Member Role: Primary Care Physician Address: Address: [address] [place] [address] Care Team Related Persons Name: ASHA QUINTERO Care Team Personnel Name: JAMES LEACH DO Position: P4 Physician - Primary Care Member Role: Primary Care Physician Address: Address: [address] [place] [address] Care Team Related Persons Name: ASHA QUINTERO Care Team Personnel Name: JAMES LEACH DO Position: P4 Physician - Primary Care Member Role: Primary Care Physician Address: Address: [address] [place] [address] Care Team Related Persons Name: ASHA QUINTERO [...] Active Member Role Status Dates Dr. Urbano Mri DO Emergency Provider Active Start : July [...] BE BASED ON THE PRIMARY CLINICAL RECORDS. [facility] [employer] provides no warranty or guarantee of the accuracy or completeness of information in this document.
[2025-01-02 09:05] LABS: Absolute Lymphocyte Count 1.36 X10^3/uL (0.83-4.51); Absolute Neutrophil Count 10.3 X10^3/uL (2.0-7.7); Basophil# 0.07 X10^3/uL; Basophil% 0.5 % (0-1); Eosinophil# 0.34 X10^3/uL; Eosinophils% 2.5 % (0-5); Hematocrit 36.6 % (37-47); Lymphocyte # 1.36 X10^3/ul (0.83-4.51); Mean Corp Hgb Conc 32.8 g/dL (32-36); Mean Corpuscular Hgb 27.5 pg (27.0-32.0); Mean Corpuscular Volume 83.9 fL (81-99); Mean Platelet Vol. 9.7 fl (6.2-12.0); Monocyte# 1.23 X10^3/uL; Monocyte% 9.1 % (0-10); NRBC Flagged by Analyzer 0 % (0-5); Neutrophil # 10.33 X10^3/uL (2.7-7.7); Neutrophil % 76.2 % (47-70); Platelet Count 382 K/mm3 (150-450); RBC Distribution Width CV 13.4 % (11.6-14.6); RBC Distribution Width SD 41.5 fl (35.1-43.9); Red Blood Count 4.36 M/mm3 (4.2-5.4); White Blood Count 13.6 K/mm3 (4.4-11.0)
== END ==
LOC: OLS.WCC 05:00
PROVIDERS: Visit Provider Family Medicine
DX: Z00.00 Encounter for general adult medical examination without abnormal findings (principal)
CPT/HCPCS: 36415; 85025

== ENCOUNTER → 2025-01-26 05:00 | Outpatient (REF) | payer MEDICARE, SELFPAY ==
[2025-01-26 08:15] LABS: Hematocrit 37.4 % (37-47); Hemoglobin 11.9 g/dL (12.0-15.0); Mean Corp Hgb Conc 31.8 g/dL (32-36); Mean Corpuscular Volume 85.8 fL (81-99); Mean Platelet Vol. 10.6 fl (6.2-12.0); Platelet Count 296 K/mm3 (150-450); RBC Distribution Width CV 14.6 % (11.6-14.6); RBC Distribution Width SD 45.9 fl (35.1-43.9); Red Blood Count 4.36 M/mm3 (4.2-5.4); White Blood Count 9.6 K/mm3 (4.4-11.0)
[2025-01-26 08:39] LABS: Anion Gap 10 (5-15); BUN 16 mg/dL (4-19); BUN/Creat Ratio 20.9 RATIO (10-20); Calcium,Total 9.7 mg/dL (7.6-11.0); Carbon Dioxide 22.3 mmol/L (21.0-32.0); Chloride 109 mmol/L (98-108); Cholesterol 98 mg/dL (<=200); Glucose 97 mg/dL (70-99); Low Density Lipoprotein Calc. 43 mg/dL; Potassium 3.8 mmol/L (3.3-5.1); Triglycerides 93 mg/dL; Very Low Density Lipoprotein 19 mg/dL (5-40); cholesterol:hdl ratio screen 2.71
== END ==
LOC: OLS.WCC 05:00
PROVIDERS: Visit Provider Family Medicine
DX: I10 Essential (primary) hypertension (principal); J44.9 Chronic obstructive pulmonary disease, unspecified; Z79.899 Other long term (current) drug therapy
CPT/HCPCS: 36415; 80048; 80061; 85027

== ENCOUNTER → 2025-05-13 | Outpatient (REF) | payer MEDICARE, SELFPAY ==
[2025-05-14 09:12] LABS: Mucous, Urine 0 SEEN /hpf (<or=2+)
[2025-05-14 09:27] LABS: Color, Urine Yellow (Yellow); Glucose, Dipstick Normal (Normal); Ketone-Dipstick Negative (Negative); Leukocyte Esterase-Dipstick 500 /ul (Negative); Nitrite-Dipstick Positive (Negative); Occult Blood-Urine 10 /ul (Negative); Protein-Dipstick 15 mg/dl (Negative); Specific Gravity, Urine 1.010 (1.002-1.030); Urine Bilirubin Dipstick Negative (Negative)
[2025-05-14 09:39] LABS: Red Blood Cells-Urine 0-5 SEEN /hpf (0-5); Squamous Epithelial Cells - UA 0-5 SEEN /hpf (5-10)
== END ==
LOC: OLS.WCC 16:00
PROVIDERS: Visit Provider Family Medicine
DX: N39.0 Urinary tract infection, site not specified (principal)
CPT/HCPCS: 81001; 87086; 87088; 87186